=== PATIENT | female | born 1955 | race Caucasian/White ===

== ENCOUNTER → 2019-09-26 | Outpatient (CLI) | payer MEDICARE, OTHER ==
--- NOTE | 2019-09-26 15:28 | Diagnostic Imaging Report ---
INDICATION: Right shoulder pain for three weeks. TIME OF EXAM: 3:05 p.m. FINDINGS: Three views of the right shoulder were obtained. Glenohumeral and acromioclavicular alignment is normal. Acromiohumeral space is normal. No fracture or dislocation is seen. Tiny osseous density adjacent to the inferior aspect of the glenoid is noted, which appears chronic. IMPRESSION: No acute bony abnormality is detected. Dictated by: Dictated on workstation # [id number]
== END ==
LOC: RAD FS 14:59
PROVIDERS: ATTEND Emergency Medicine
DX: M06.811 Other specified rheumatoid arthritis, right shoulder (principal)
CPT/HCPCS: 73030

== ENCOUNTER 2019-11-29 19:46 | Emergency (ER) | payer MEDICARE, OTHER ==
[~2019-11-29] VITALS: Ht 175.3 cm; Wt 59.1 kg
[2019-11-29] MEDS ORDERED: fentaNYL INJECTION 100 MCG/2 ML AMP IVP STA ×2 (20:10→20:43)
[2019-11-29 20:33] LABS: INR 0.9 (0.8-1.4); PROTHROMBIN TIME PATIENT 12.9 SEC (12.2-14.7)
[2019-11-29 20:34] LABS: BILIRUBIN,TOTAL 0.2 MG/DL (0.1-1.0); CALCIUM 8.7 MG/DL (8.5-10.1); CREATININE SERUM 0.98 MG/DL (0.60-1.30); POTASSIUM 4.3 MMOL/L (3.6-5.0)
[2019-11-29 20:35] LABS: ALBUMIN 3.8 GM/DL (3.2-4.5); HEMATOCRIT 35 % (35-52); HEMOGLOBIN 11.4 G/DL (11.5-16.0); MEAN CORPUSCULAR HEMOGLOBIN 32 PG (25-34); MEAN CORPUSCULAR HGB CONC 32 G/DL (32-36); MEAN CORPUSCULAR VOLUME 100 FL (80-99); RED CELL DISTRIBUTION WIDTH 15.3 % (10.0-14.5); TOTAL PROTEIN 6.3 GM/DL (6.4-8.2); WHITE BLOOD COUNT 7.5 10^3/uL (4.3-11.0)
[2019-11-29 20:36] LABS: BASOPHILS # (AUTO) 0.1 10^3/uL (0.0-0.1); BASOPHILS % (AUTO) 1 % (0-10); EOSINOPHILS % (AUTO) 0 % (0-10); LYMPHOCYTES # (AUTO) 1.4 X 10^3 (1.0-4.0); LYMPHOCYTES % (AUTO) 19 % (12-44); MEAN PLATELET VOLUME 8.8 FL (7.4-10.4); MONOCYTES # (AUTO) 0.3 X 10^3 (0.0-1.0); MONOCYTES % (AUTO) 5 % (0-12); NEUTROPHILS # (AUTO) 5.6 X 10^3 (1.8-7.8); NEUTROPHILS % (AUTO) 75 % (42-75); PLATELET COUNT 289 10^3/uL (130-400)
[2019-11-29] MEDS ORDERED: ONDANSETRON 4 MG/2 ML (SDV) Z0FRAN IVP STA (20:43)
[2019-11-29] MEDS ORDERED: NS IV 1000 ML 1,000 ML IV STA (20:43)
--- NOTE | 2019-11-29 20:43 | ED Fall/Injury ---
General Chief Complaint: Hip/Pelvic Problems Stated Complaint: FELL,LEFT HIP PAIN Nursing Triage Note: PT TO ROOM FS05 WITH C/O LEFT HIP PAIN AFTER TRIPPING AND FALLING OVER HER DOG THIS AFTERNOON. Source: patient, EMS History of Present Illness Date Seen by Provider: Nov 29, 2019 Time Seen by Provider: 19:51 Initial Comments 64-year-old female presenting with complaints of left hip pain. She had tripped over her dog and fell on her left hip. She denies hitting her head or losing consciousness. She denies being on any blood thinners. She has a history of rheumatoid arthritis and takes steroids for that. She also takes methotrexate for her rheumatoid arthritis. She is having severe left hip pain and there is so me shortening and rotation of her left leg. She has good sensation and pulses of the left leg. EMS was activated and transported her here to the emergency department for evaluation. He did get 50 g of fentanyl in route which helped improve her pain slightly. Allergies and Home Medications Allergies Coded Allergies: prochlorperazine (Verified Allergy, Unknown, 11/29/19) Patient Home Medication List Home Medication List Reviewed: Yes Review of Systems Review of Systems Constitutional: No chills, No dizziness, No fever Eyes: No Symptoms Reported Ears, Nose, Mouth, Throat: no symptoms reported Respiratory: no symptoms reported Cardiovascular: no symptoms reported Gastrointestinal: no symptoms reported Genitourinary: no symptoms reported Musculoskeletal: see HPI, joint pain (left hip pain) Skin: other (superficial abrasions to arms) Psychiatric/Neurological: Anxiety; Denies Headache, Denies Numbness, Denies Paresthesia Past Fxyplue-Azysji-Kfbelq Hx Past Med/Social Hx: Reviewed Nursing Past Med/Soc Hx Patient Social History Alcohol Use: Regular Use Alcohol Beverage of Choice: Wine Recreational Drug Use: No Smoking Status: Never a Smoker 2nd Hand Smoke Exposure: No Recent Foreign Travel: No Contact w/Someone Who Travel: No Recent Infectious Disease Expo: No Recent Hopitalizations: No Physical Abuse: No Sexual Abuse: No Mistreated: No Fear: No Seasonal Allergies Seasonal Allergies: No Past Medical History Surgeries: Yes Gallbladder, Hysterectomy Respiratory: No Cardiac: No Neurological: No Genitourinary: No Gastrointestinal: Yes Gall Bladder Disease Musculoskeletal: Yes Fractures Endocrine: No HEENT: No Cancer: Yes Cervical Did You Recieve Any Treatments: Yes What Type of Treatment Did You: Surgical Intervention Psychosocial: Yes Anxiety, Depression Integumentary: No Blood Disorders: No Physical Exam Vital Signs Vital Signs - First Documented 11/29/19 19:51 Temp 36.6 Pulse 91 Resp 19 B/P (MAP) 154/74 (100) O2 Delivery Room Air Capillary Refill : Less Than 3 Seconds Height, Weight, BMI Height: '" Weight: lbs. oz. kg; 19.00 BMI Method: General Appearance: moderate distress, thin HEENT: PERRL/EOMI, pharynx normal Neck: non-tender, full range of motion, supple, normal inspection Cardiovascular: normal peripheral pulses, regular rate, rhythm Respiratory: chest non-tender, lungs clear, normal breath sounds, no respiratory distress, no accessory muscle use Gastrointestinal: normal bowel sounds, non tender, soft, no pulsatile mass Extremities: no pedal edema, no calf tenderness, normal capillary refill, pelvis stable, other (left hip pain worse with palpation, shortening and some internal rotation of left leg) 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, no motor/sensory deficits, alert, oriented x 3, other (anxious) Skin: warm/dry, other (superficial abrasions to arms) Rowland Coma Score Best Eye Response: (4) Open Spontaneously Best Verbal Response: (5) Oriented Best Motor Response: (6) Obeys Commands Rowland Total: 15 Progress/Results/Core Measures Results/Orders Lab Results Laboratory Tests Test 11/29/19 20:00 Range/Units White Blood Count 7.5 4.3-11.0 10^3/uL Red Blood Count 3.53 L 4.35-5.85 10^6/uL Hemoglobin 11.4 L 11.5-16.0 G/DL Hematocrit 35 35-52 % Mean Corpuscular Volume 100 H 80-99 FL Mean Corpuscular Hemoglobin 32 25-34 PG Mean Corpuscular Hemoglobin Concent 32 32-36 G/DL Red Cell Distribution Width 15.3 H 10.0-14.5 % Platelet Count 289 130-400 10^3/uL Mean Platelet Volume 8.8 7.4-10.4 FL Neutrophils (%) (Auto) 75 42-75 % Lymphocytes (%) (Auto) 19 12-44 % Monocytes (%) (Auto) 5 0-12 % Eosinophils (%) (Auto) 0 0-10 % Basophils (%) (Auto) 1 0-10 % Neutrophils # (Auto) 5.6 1.8-7.8 X 10^3 Lymphocytes # (Auto) 1.4 1.0-4.0 X 10^3 Monocytes # (Auto) 0.3 0.0-1.0 X 10^3 Eosinophils # (Auto) 0.0 0.0-0.3 10^3/uL Basophils # (Auto) 0.1 0.0-0.1 10^3/uL Prothrombin Time 12.9 12.2-14.7 SEC INR Comment 0.9 0.8-1.4 Activated Partial Thromboplast Time 26 24-35 SEC Sodium Level 140 135-145 MMOL/L Potassium Level 4.3 3.6-5.0 MMOL/L Chloride Level 103 98-107 MMOL/L Carbon Dioxide Level 23 21-32 MMOL/L Anion Gap 14 5-14 MMOL/L Blood Urea Nitrogen 15 7-18 MG/DL Creatinine 0.98 0.60-1.30 MG/DL Estimat Glomerular Filtration Rate 57 BUN/Creatinine Ratio 15 Glucose Level 108 H 70-105 MG/DL Calcium Level 8.7 8.5-10.1 MG/DL Corrected Calcium 8.9 8.5-10.1 MG/DL Total Bilirubin 0.2 0.1-1.0 MG/DL Aspartate Amino Transf (AST/SGOT) 22 5-34 U/L Alanine Aminotransferase (ALT/SGPT) 18 0-55 U/L Alkaline Phosphatase 68 40-136 U/L Total Protein 6.3 L 6.4-8.2 GM/DL Albumin 3.8 3.2-4.5 GM/DL My Orders Orders - KLEVER KEBEDE MD Fentanyl Injection (Sublimaze Injection (11/29/19 20:10) Cbc With Automated Diff (11/29/19 20:10) Comprehensive Metabolic Panel (11/29/19 20:10) Protime With Inr (11/29/19 20:10) Partial Thromboplastin Time (11/29/19 20:10) Pelvis With Left Hip 2-3 View (11/29/19 20:10) Chest 1 View Ap/Pa Only (11/29/19 20:38) Fentanyl Injection (Sublimaze Injection (11/29/19 20:43) Ondansetron Injection (Zofran Injectio (11/29/19 20:43) Freire Cath (11/29/19 20:43) Ua Culture If Indicated (11/29/19 20:43) Ns Iv 1000 Ml (Sodium Chloride 0.9%) (11/29/19 20:43) Ekg Tracing (11/29/19 20:57) Ed Iv/Invasive Line Start (11/29/19 20:58) Vital Signs/I&O 11/29/19 19:51 Temp 36.6 Pulse 91 Resp 19 B/P (MAP) 154/74 (100) O2 Delivery Room Air Blood Pressure Mean: 100 Progress Progress Note #1: Progress Note give another 50 mcg of Fentanyl for pain before obtaining x-rays of the pelvis and left hip. Send basic labs on the patient. Progress Note #2: Time: 20:46 Progress Note Subcapital left hip fracture seen on my review of the pelvis and left hip x- rays. I added on the chest x-ray and ordered more pain medication for the patient. I discussed the case with Dr. Fadi De La O the air defense control officer orthopedic doctor and Dr. Berg for [facility] to admit the patient to [facility] at the wishes of the patient. Progress Note #3: Time: 21:32 Progress Note As EMS arrived to take the patient to [facility] the patient's family and friends advised us that they did not want her to see Dr. De La O. They wanted her to go to [facility] because they knew that she could be managed as a Pent[employer]ism there. That way she wouldn't be given blood products but could be cared for from a advent and medical stand point. Pt is also upset and tearful now and tachycardic compared to earlier. Progress Note #4: Time: 21:47 Progress Note FERCHO Anaya, with [facility] transfer Center was contacted and given information about the patient. She stated that she would contact Dr. Diaz from trauma services since the patient was a standing height fall and would be qualified as trauma. Progress Note #5: Time: 22:16 Progress Note FERCHO Anaya, called back and stated that Dr. Diaz accepted the patient for Trauma but that it might be several hours before she has a room because they are very busy. They will call back as soon as they have the room. Initial ECG Impression Date: Nov 29, 2019 Initial ECG Impression Time: 21:26 Initial ECG Rate: 122 Initial ECG Rhythm: S.Tach Initial ECG Comparisson: No Previous ECG Available Comment Sinus tachycardia with a heart rate of 122 bpm. UT interval 148 ms. QT interval 333 ms and a QTc interval 475 ms. She has no acute ST elevation. There is no prior tracing available for comparison. Diagnostic Imaging Diagonstic Imaging: Xray Plain Films/CT/US/NM/MRI: pelvis, hip Comments [facility], [place] NAME: [facility] REC#: [id number] PT STATUS: ADM IN : 1955 PHYSICIAN: KLEVER KEBEDE MD ADMIT DATE: 11/29/19 Signed Date of Exam:11/29/19 PELVIS WITH LEFT HIP 2-3 VIEW INDICATION: Fall with pelvic pain AP view of the pelvis is obtained with coned AP and frog-leg view of left hip. Numerous surgical clips are seen bilaterally in the pelvis. Hip joints are intact, however, there is mildly displaced subcapital fracture in the left femoral neck. There is no abnormal lytic or sclerotic focus. IMPRESSION: Mildly displaced left subcapital femoral neck fracture without dislocation or other acute pelvic abnormality. Dictated by: Dictated on workstation # [id number] Dict: 11/29/192058 Trans: 11/29/192208 LONNIE [id number] Interpreted by: PEMA ALVAREZ MD Electronically signed by: PEMA ALVAREZ MD 11/29/192208 Diagonstic Imaging: Xray Plain Films/CT/US/NM/MRI: chest Comments [facility] [place] NAME: [facility] REC#: [id number] PT STATUS: ADM IN : 1955 PHYSICIAN: KLEVER KEBEDE MD ADMIT DATE: 11/29/19 Signed Date of Exam:11/29/19 CHEST 1 VIEW AP/PA ONLY INDICATION: Fall. Study is performed as preoperative evaluation AP view of the chest is obtained. COMPARISON: No previous study is available for comparison at this time. FINDINGS: Heart size and pulmonary vasculature are within normal limits, and the lungs are clear, bilaterally. IMPRESSION: Unremarkable chest. Dictated by: Dictated on workstation # [id number] Dict: 11/29/192058 Trans: 11/29/192208 [facility] [id number] Interpreted by: PEMA ALVAREZ MD Electronically signed by: PEMA ALVAREZ MD 11/29/192208 Departure Impression Primary Impression: Closed subcapital fracture of neck of left femur Qualified Codes: S72.012A - Unspecified intracapsular fracture of left femur, initial encounter for closed fracture Additional Impression: Fall at home Qualified Codes: W19.XXXA - Unspecified fall, initial encounter; Y92.009 - Unspecified place in unspecified non-institutional (private) residence as the place of occurrence of the external cause Disposition: XFER SHT-TRM HOSP Condition: Stable Transfer Transfer Reason: Patient preference (Patient requested [facility] because she is a Pentec[employer]alism and knows they can manage her care) Time Spoke to Accepting Phy: 22:16 Transfer Progress Notes d/w Héctor RN, from [facility] and she he spoke with Dr. Diaz for the trauma services. Dr. Diaz accepted patient for transfer and notified of acceptance at 2216. Advised that they were very full and it may take a while for a room to be available. Transfer Facility: [facility] Method of Transfer: EMS Departure-Patient Inst. Referrals: ALLIE VOGT MD, MARC E MD Nov 29, 2019 20:43
--- NOTE | 2019-11-29 21:01 | Diagnostic Imaging Report ---
INDICATION: Fall. Study is performed as preoperative evaluation AP view of the chest is obtained. COMPARISON: No previous study is available for comparison at this time. FINDINGS: Heart size and pulmonary vasculature are within normal limits, and the lungs are clear, bilaterally. IMPRESSION: Unremarkable chest. Dictated by: Dictated on workstation # [id number]
--- NOTE | 2019-11-29 21:02 | Diagnostic Imaging Report ---
INDICATION: Fall with pelvic pain AP view of the pelvis is obtained with coned AP and frog-leg view of left hip. Numerous surgical clips are seen bilaterally in the pelvis. Hip joints are intact, however, there is mildly displaced subcapital fracture in the left femoral neck. There is no abnormal lytic or sclerotic focus. IMPRESSION: Mildly displaced left subcapital femoral neck fracture without dislocation or other acute pelvic abnormality. Dictated by: Dictated on workstation # [id number]
--- NOTE | 2019-11-29 21:14 | NUR ---
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
[2019-11-29 21:29] LABS: BACTERIA,URINE NEGATIVE /HPF; BILIRUBIN,URINE NEGATIVE (NEGATIVE); CLARITY,URINE CLEAR; COLOR,URINE YELLOW; GLUCOSE, URINE (UA) NEGATIVE (NEGATIVE); KETONES,URINE NEGATIVE (NEGATIVE); LEUKOCYTE ESTERASE ,URINE NEGATIVE (NEGATIVE); NITRITE,URINE NEGATIVE (NEGATIVE); PH,URINE 7.5 (5-9); PROTEIN,URINE NEGATIVE (NEGATIVE); RBC,URINE 0-2 /HPF
[2019-11-29 21:30] LABS: SQUAMOUS EPITHELIAL CELL,UR 0-2 /HPF
--- NOTE | 2019-11-29 21:35 | NUR ---
[facility] [place] [facility] PT DECIDED THAT SHE WANTED TO BE TRANSFERED TO . PT HAD ORIGINALLY REQUESTED TO BE TRANSFERED [place] [facility]
[2019-11-29] MEDS ORDERED: morphine INJ 10 MG/ML 1ML (SYR OR VIAL) IVP STA ×2 (21:48→22:46)
[2019-11-29] MEDS ORDERED: LORazepam INJ 2 MG/ML (ATIVAN) VIAL IVP STA (22:46)
[2019-11-29] MEDS ORDERED: NS IV 1000 ML 1,000 ML IV SCH (23:00)
[2019-11-29 23:37] VITALS: BP 136/61
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
--- OUTSIDE RECORDS SUMMARY | 2019-12-04 11:50 | XMS REPORT ---
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 Name Role Phone Migration, Doctor Unavailable Unavailable PROBLEMS Type Condition ICD9-CM Code [id number] Code Onset Dates Condition S tatus SNOMED Code Problem Bipolar disorder, current episode depressed, moderate F31.32 Active 397169726 Problem Anorexia nervosa F50.00 Active 568 68544 Problem Personality disorder, unspecified F60.9 Active 25566233 Problem Post-traumatic stress disorder, chronic F43.12 Active [id number] ALLERGIES No Information ENCOUNTERS Encounter Location Date Diagnosis [place] [address] [address] Sep, [place] [address] [address] Sep, Bipolar disorder, current episode depres sed, moderate F31.32 ; Post- traumatic stress disorder, chronic F43.12 and Anorexia nervosa F50.00 [place] [address] [address] Sep, [place] [address] [address] Aug, [place] [address] [address] Aug, [place] [address] [address] Aug, [place] [address] [address] Aug, Bipolar disorder, current episode depres sed, moderate F31.32 ; Post- traumatic stress disorder, chronic F43.12 ; Anorexia nervosa F50.00 and Personality disorder, unspecified F60.9 [place] [address] [address] Jul, Bipolar disorder, current episode depres sed, moderate F31.32 and Anorexia nervosa F50.00 [place] [address] [address] Jul, [facility] [address] [address] Jul, [facility] [address] [address] Jul, [place] [address] [address] Jun, Bipolar disorder, current episode depres sed, moderate F31.32 ; Post- traumatic stress disorder, chronic F43.12 and Eating disorder, unspecified F50.9 [place] [address] [address] May, [place] [address] [address] Apr, Bipolar disorder, current episode depres sed, moderate F31.32 ; Post- traumatic stress disorder, chronic F43.12 and Eating disorder, unspecified F50.9 [place] [address] [address] Feb, Bipolar disorder, current episode depres sed, moderate F31.32 ; Post- traumatic stress disorder, chronic F43.12 and Personality disorder, unspecified F60.9 [place] [address] [address] 14 Feb, 2016 Bipolar II disorder F31.81 [place] [address] [address] Dec, Bipolar disorder, current episode depres sed, moderate F31.32 ; Post- traumatic stress disorder, chronic F43.12 and Personality disorder, unspecified F60.9 [place] [address] [address] 14 Dec, 2015 Bipolar disorder, current episode depres sed, moderate F31.32 ; Post- traumatic stress disorder, chronic F43.12 and Personality disorder, unspecified F60.9 [facility] [address] [address] Dec, [facility] [address] [place] [address] Dec, [facility] [address] [address] Dec, Bipolar disorder, current episode depres sed, moderate F31.32 ; Post- traumatic stress disorder, chronic F43.12 and Personality disorder, unspecified F60.9 [facility] [address] [address] Nov, [facility] [address] [place] [address] Nov, Bipolar disorder, current episode depres sed, moderate F31.32 ; Post- traumatic stress disorder, chronic F43.12 and Personality disorder, unspecified F60.9 [place] [address] [address] Nov, Bipolar disorder, current episode depres sed, moderate F31.32 ; Post- traumatic stress disorder, chronic F43.12 and Personality disorder, unspecified F60.9 [place] [address] [address] Oct, [facility] [address] [address] Oct, Bipolar disorder, current episode depres sed, moderate F31.32 ; Post- traumatic stress disorder, chronic F43.12 and Personality disorder, unspecified F60.9 [facility] [address] [address] Oct, Bipolar disorder, current episode depres sed, moderate F31.32 ; Post- traumatic stress disorder, chronic F43.12 and Personality disorder, unspecified F60.9 [facility] [address] [address] Aug, Bipolar II disorder F31.81 and Post-trau matic stress disorder, unspecified F43.10 [facility] [address] [address] Aug, Bipolar disorder, current episode depres sed, moderate F31.32 ; Post- traumatic stress disorder, chronic F43.12 and Personality disorder, unspecified F60.9 [facility] [address] [address] Jul, Bipolar disorder, unspecified 296.80 and Posttraumatic stress disorder 309.81 [place] [address] [address] Jul, Post-traumatic stress disorder, chronic F43.12 ; Personality disorder, unspecified F60.9 and Bipolar disorder, current episode depressed, moderate F31.32 [place] [address] [address] Jun, Bipolar disorder, unspecified 296.80 and Posttraumatic stress disorder 309.81 [facility] [address] [address] Jun, Bipolar disorder, unspecified 296.80 and Posttraumatic stress disorder 309.81 [facility] [address] [address] Jun, Posttraumatic stress disorder 309.81 and Bipolar disorder, unspecified 296.80 [place] [address] [address] May, Bipolar II disorder 296.89 and Post trau matic stress disorder 309.81 [facility] [address] [address] 18 May, 2015 Bipolar II disorder 296.89 and Post trau matic stress disorder 309.81 [place] [address] [address] 17 May, 2015 [facility] [address] [address] 09 May, 2015 [facility] [address] [address] May, [facility] [address] [place] [id number] [place] [address] May, [facility] [address] [address] May, Bipolar II disorder 296.89 and Post trau matic stress disorder 309.81 [facility] [address] [place] [id number] [place] [address] May, Bipolar I disorder, most recent episode (or current) depressed, moderate 296.52 ; Posttraumatic stress disorder 309.81 and Anxiety state, unspecified 300.00 [facility] [address] [address] Apr, Bipolar II disorder 296.89 and Post trau matic stress disorder 309.81 [facility] [address] [address] Apr, [facility] [address] [address] Apr, Bipolar II disorder 296.89 and Post trau matic stress disorder 309.81 [facility] [address] [address] Apr, Bipolar II disorder 296.89 and Post trau matic stress disorder 309.81 [facility] [address] [address] Mar, Bipolar II disorder 296.89 and Post trau matic stress disorder 309.81 [facility] [address] [place] [id number] [place] [address] Mar, [facility] [address] [address] Mar, Bipolar II disorder 296.89 and Post trau matic stress disorder 309.81 [facility] [address] [place] [id number] [place] [address] Mar, Bipolar II disorder 296.89 and Post trau matic stress disorder 309.81 [facility] [address] [place] [id number] [place] [address] Mar, Bipolar II disorder 296.89 and Post trau matic stress disorder 309.81 [facility] [address] [place] [id number] [place] [address] Mar, [facility] [address] [place] [id number] [place] [address] Mar, Bipolar II disorder 296.89 and Post trau matic stress disorder 309.81 [facility] [address] [place] [id number] [place] [address] Feb, Bipolar II disorder 296.89 and Post trau matic stress disorder 309.81 [facility] [address] [place] [id number] [place] [address] Feb, [facility] [address] [place] [id number] [place] [address] Feb, Bipolar disorder, unspecified 296.80 and Anxiety state, unspecified 300.00 [facility] [address] [place] [id number] [place] [address] Feb, [facility] [address] [address] Feb, [facility] [address] [place] [id number] [place] [address] January, [facility] [address] [place] [id number] [place] [address] Dec, [facility] [address] [place] [id number] [place] [address] Dec, [facility] [address] [place] [id number] [place] [address] Nov, [facility] [address] [place] [id number] [place] [address] Nov, [facility] [address] [place] [id number] [place] [address] Nov, [facility] [address] [place] [id number] [place] [address] Nov, [facility] [address] [facility] [id number] [place] [address] Nov, [facility] [address] [id number] [place] [address] Nov, [facility] [address] [id number] [place] [address] Nov, [facility] [address] [id number] [place] [address] Nov, [facility] [address] [id number] [place] [address] Nov, [facility] [address] [id number] [place] [address] Oct, [facility] [address] [id number] [place] [address] Oct, [facility] [address] [id number] [place] [address] Oct, [facility] [address] [id number] [place] [address] Oct, [facility] [address] [id number] [place] [address] Oct, [facility] [address] [id number] [place] [address] Oct, [facility] [address] [id number] [place] [address] Oct, [facility] [address] [id number] [place] [address] Oct, [facility] [address] [id number] [place] [address] Sep, [facility] [address] [id number] [place] [address] Sep, [facility] [address] [id number] [place] [address] Sep, [facility] [address] [id number] [place] [address] Sep, [facility] [address] [id number] [place] [address] Sep, [facility] [address] [id number] [place] [address] Sep, [facility] [address] [id number] [place] [address] Sep, [facility] [address] [id number] [place] [address] Sep, [facility] [address] [id number] [place] [address] Sep, [facility] [address] [id number] [place] [address] Sep, [facility] [address] [id number] [place] [address] Aug, [facility] [address] [id number] [place] [address] Aug, [facility] [address] [id number] [place] [address] Aug, [facility] [address] [id number] [place] [address] Aug, [facility] [address] [id number] [place] [address] Aug, [facility] [address] [id number] [place] [address] Aug, [facility] [address] [id number] [place] [address] Aug, [facility] [address] [id number] [place] [address] Aug, [facility] [address] [id number] [place] [address] Jul, [facility] [address] [id number] [place] [address] Jul, [facility] [address] [id number] [place] [address] Jul, [facility] [address] [id number] [place] [address] Jul, [facility] [address] [id number] [place] [address] Jul, [facility] [address] [id number] [place] [address] Jul, [facility] [address] [facility] [id number] [place] [address] Jul, [facility] [address] [id number] [place] [address] Jul, [facility] [address] [id number] [place] [address] Jul, [facility] [address] [id number] [place] [address] Jun, [facility] [address] [id number] [place] [address] Jun, [facility] [address] [id number] [place] [address] Jun, [facility] [address] [id number] [place] [address] Jun, [facility] [address] [id number] [place] [address] Jun, [facility] [address] [id number] [place] [address] Jun, [facility] [address] [id number] [place] [address] May, [facility] [address] [id number] [place] [address] May, [facility] [address] [id number] [place] [address] May, [facility] [address] [id number] [place] [address] May, [facility] [address] [id number] [place] [address] May, [facility] [address] [facility] [id number] [place] [address] May, [facility] [address] [id number] [place] [address] Apr, [facility] [address] [facility] [id number] [place] [address] Apr, [facility] [address] [id number] [place] [address] Apr, [facility] [address] [id number] [place] [address] Apr, [facility] [address] [id number] [place] [address] Apr, [facility] [address] [id number] [place] [address] Apr, [facility] [address] [id number] [place] [address] Mar, [facility] [address] [id number] [place] [address] Mar, [facility] [address] [id number] [place] [address] Mar, [facility] [address] [id number] [place] [address] Mar, [facility] [address] [facility] [id number] [place] [address] Mar, [facility] [address] [id number] [place] [address] Mar, [facility] [address] [id number] [place] [address] Mar, [facility] [address] [id number] [place] [address] Mar, [facility] [address] [id number] [place] [address] Mar, 2013 [facility] [address] [facility] [id number] [place] [address] Mar, 2013 [facility] [address] [facility] [id number] [place] [address] Mar, 2013 [facility] [address] [id number] [place] [address] Mar, 2013 [facility] [address] [facility] [id number] [place] [address] Mar, 2013 [facility] [address] [id number] [place] [address] Mar, 2013 [facility] [address] [id number] [place] [address] Mar, 2013 [facility] [address] [id number] [place] [address] Mar, 2013 [facility] [address] [id number] [place] [address] Feb, [facility] [address] [id number] [place] [address] Feb, [facility] [address] [id number] [place] [address] Feb, [facility] [address] [id number] [place] [address] Feb, [facility] [address] [id number] [place] [address] 24 Feb, 2014 [facility] [address] [facility] [id number] [place] [address] Feb, [facility] [address] [id number] [place] [address] 20 Feb, 2014 [facility] [address] [id number] [place] [address] 16 Feb, 2014 [facility] [address] [id number] [place] [address] Feb, [facility] [address] [id number] [place] [address] Feb, [facility] [address] [facility] [id number] [place] [address] Feb, [facility] [address] [facility] [id number] [place] [address] Feb, [facility] [address] [id number] [place] [address] Feb, [facility] [address] [id number] [place] [address] January, [facility] [address] [id number] [place] [address] January, [facility] [address] [id number] [place] [address] January, [facility] [address] [id number] [place] [address] January, [facility] [address] [facility] [id number] [place] [address] January, [facility] [address] [id number] [place] [address] January, [facility] [address] [id number] [place] [address] January, [facility] [address] [id number] [place] [address] January, [facility] [address] [facility] [id number] [place] [address] January, [facility] [address] [id number] [place] [address] January, [facility] [address] [id number] [place] [address] January, [facility] [address] [id number] [place] [address] January, [facility] [address] [id number] [place] [address] January, [facility] [address] [facility] [id number] [place] [address] January, [facility] [address] [id number] [place] [address] Dec, [facility] [address] [id number] [place] [address] Dec, [facility] [address] [id number] [place] [address] Dec, [facility] [address] [id number] [place] [address] Dec, [facility] [address] [id number] [place] [address] Dec, [facility] [address] [id number] [place] [address] Dec, [facility] [address] [id number] [place] [address] Dec, [facility] [address] [id number] [place] [address] Dec, [facility] [address] [id number] [place] [address] Nov, [facility] [address] [id number] [place] [address] Nov, [facility] [address] [id number] [place] [address] Nov, [facility] [address] [id number] [place] [address] Nov, [facility] [address] [id number] [place] [address] Oct, [facility] [address] [id number] [place] [address] Oct, [facility] [address] [id number] [place] [address] Oct, [facility] [address] [id number] [place] [address] Oct, [facility] [address] [id number] [place] [address] Oct, [facility] [address] [id number] [place] [address] Oct, [facility] [address] [id number] [place] [address] Sep, [facility] [address] [id number] [place] [address] Sep, [facility] [address] [id number] [place] [address] Sep, [facility] [address] [id number] [place] [address] Sep, [facility] [address] [id number] [place] [address] Sep, [facility] [address] [id number] [place] [address] Sep, [facility] [address] [id number] [place] [address] Sep, [facility] [address] [id number] [place] [address] Sep, [facility] [address] [id number] [place] [address] Sep, [facility] [address] [id number] [place] [address] Sep, [facility] [address] [id number] [place] [address] Aug, [facility] [address] [id number] [place] [address] Aug, [facility] [address] [id number] [place] [address] Aug, [facility] [address] [id number] [place] [address] Aug, [facility] [address] [id number] [place] [address] Aug, [facility] [address] [id number] [place] [address] Aug, [facility] [address] [id number] [place] [address] Aug, [facility] [address] [id number] [place] [address] Aug, [facility] [address] [id number] [place] [address] Jul, [facility] [address] [id number] [place] [address] Jul, [facility] [address] [id number] [place] [address] Jul, [facility] [address] [id number] [place] [address] Jul, [facility] [address] [id number] [place] [address] Jul, [facility] [address] [id number] [place] [address] Jul, [facility] [address] [id number] [place] [address] Jul, [facility] [address] [id number] [place] [address] Jul, [facility] [address] [id number] [place] [address] Jul, [facility] [address] [id number] [place] [address] Jul, [facility] [address] [id number] [place] [address] Jul, [facility] [address] [id number] [place] [address] Jul, [facility] [address] [facility] [id number] [place] [address] 30 Jun, 2012 [facility] [address] [id number] [place] [address] 30 Jun, 2012 [facility] [address] [id number] [place] [address] Jun, [facility] [address] [id number] [place] [address] Jun, [facility] [address] [id number] [place] [address] Jun, [facility] [address] [id number] [place] [address] Jun, [facility] [address] [id number] [place] [address] 16 Jun, 2013 [facility] [address] [id number] [place] [address] Jun, [facility] [address] [id number] [place] [address] 25 May, 2012 [facility] [address] [id number] [place] [address] 18 May, 2012 [facility] [address] [id number] [place] [address] 11 May, 2012 [facility] [address] [id number] [place] [address] 10 May, 2012 [facility] [address] [id number] [place] [address] 09 May, 2012 [facility] [address] [id number] [place] [address] 04 May, 2012 [facility] [address] [id number] [place] [address] 30 Apr, 2013 [facility] [address] [id number] [place] [address] Apr[facility] [address] [id number] [place] [address] Apr, [facility] [address] [id number] [place] [address] Apr, [facility] [address] [id number] [place] [address] Apr, [facility] [address] [id number] [place] [address] Mar, [facility] [id number] [place] [address] Mar, [facility] [address] [id number] [place] [address] Mar, [facility] [id number] [place] [address] Feb, [facility] [address] [id number] [place] [address] Feb, [facility] [id number] [place] [address] Feb, [facility] [address] [id number] [place] [address] January, [facility] [id number] [place] [address] January, [facility] [address] [id number] [place] [address] Dec, [facility] [address] [id number] [place] [address] Nov, [facility] [address] [id number] [place] [address] Nov, IMMUNIZATIONS No Known Immunizations SOCIAL HISTORY [...]
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
--- OUTSIDE RECORDS SUMMARY | 2019-12-04 11:51 | XMS REPORT ---
Author Author Shireen Moyer Doctor Organization [facility] Address Unknown Phone Unavailable Care Team Providers Care Drier Tender Naphthalene Name Role Phone Migration, Doctor Unavailable Unavailable PROBLEMS Type Condition ICD9-CM Code [id number] Code Onset Dates Condition S tatus SNOMED Code Problem Bipolar disorder, current episode depressed, moderate F31.32 Active 769342117 Problem Anorexia nervosa F50.00 Active 568 86123 Problem Personality disorder, unspecified F60.9 Active [id number] Problem Post-traumatic stress disorder, chronic F43.12 Active [id number] ALLERGIES No Information ENCOUNTERS Encounter Location Date Diagnosis [place] [address] [address] Sep, [facility] [address] [address] Sep, [facility] [address] [address] Sep, [facility] [address] [address] Sep, [facility] [address] [address] Sep, [facility] [address] [address] Aug, [facility] [address] [address] Aug, [facility] [address] [address] Aug, [facility] [address] [address] Aug, Bipolar disorder, current episode depres sed, moderate F31.32 ; Post- traumatic stress disorder, chronic F43.12 ; Anorexia nervosa F50.00 and Personality disorder, unspecified F60.9 [place] [address] [address] 08 Jul, 2017 Bipolar disorder, current episode depres sed, moderate F31.32 and Anorexia nervosa F50.00 [place] [address] [address] Jul, [place] [address] [address] Jul, [place] [address] [place] [address] Jul, [place] [address] [address] Jun, Bipolar disorder, current episode depres sed, moderate F31.32 ; Post- traumatic stress disorder, chronic F43.12 and Eating disorder, unspecified F50.9 [place] [address] [address] May, [place] [address] [address] Apr, Bipolar disorder, current episode depres sed, moderate F31.32 ; Post- traumatic stress disorder, chronic F43.12 and Eating disorder, unspecified F50.9 [place] [address] [address] 14 Feb, 2016 Bipolar disorder, current episode depres sed, moderate F31.32 ; Post- traumatic stress disorder, chronic F43.12 and Personality disorder, unspecified F60.9 [place] [address] [address] 14 Feb, 2016 Bipolar II disorder F31.81 [place] [address] [address] 27 Dec, 2015 Bipolar disorder, current episode depres sed, moderate F31.32 ; Post- traumatic stress disorder, chronic F43.12 and Personality disorder, unspecified F60.9 [place] [address] [address] Dec, Bipolar disorder, current episode depres sed, moderate F31.32 ; Post- traumatic stress disorder, chronic F43.12 and Personality disorder, unspecified F60.9 [place] [address] [address] Dec, [facility] [address] [address] Dec, [facility] [address] [address] Dec, Bipolar disorder, current episode depres sed, moderate F31.32 ; Post- traumatic stress disorder, chronic F43.12 and Personality disorder, unspecified F60.9 [place] [address] [address] Nov, [place] [address] [address] Nov, Bipolar disorder, current episode depres sed, moderate F31.32 ; Post- traumatic stress disorder, chronic F43.12 and Personality disorder, unspecified F60.9 [place] [address] [address] Nov, Bipolar disorder, current episode depres sed, moderate F31.32 ; Post- traumatic stress disorder, chronic F43.12 and Personality disorder, unspecified F60.9 [place] [address] [address] Oct, [facility] [address] [place] [address] Oct, Bipolar disorder, current episode depres sed, moderate F31.32 ; Post- traumatic stress disorder, chronic F43.12 and Personality disorder, unspecified F60.9 [place] [address] [place] [id number] 05 Oct, 2015 Bipolar disorder, current episode depres sed, moderate F31.32 ; Post- traumatic stress disorder, chronic F43.12 and Personality disorder, unspecified F60.9 [place] [address] [address] Aug, Bipolar II disorder F31.81 and Post-trau matic stress disorder, unspecified F43.10 [place] [address] [place] [address] Aug, Bipolar disorder, current episode depres sed, moderate F31.32 ; Post- traumatic stress disorder, chronic F43.12 and Personality disorder, unspecified F60.9 [place] [address] [address] Jul, Bipolar disorder, unspecified 296.80 and Posttraumatic stress disorder 309.81 [place] [address] [place] [address] Jul, Post-traumatic stress disorder, chronic F43.12 ; Personality disorder, unspecified F60.9 and Bipolar disorder, current episode depressed, moderate F31.32 [place] [address] [address] Jun, Bipolar disorder, unspecified 296.80 and Posttraumatic stress disorder 309.81 [place] [address] [address] Jun, Bipolar disorder, unspecified 296.80 and Posttraumatic stress disorder 309.81 [place] [address] [address] Jun, Posttraumatic stress disorder 309.81 and Bipolar disorder, unspecified 296.80 [place] [address] [address] May, Bipolar II disorder 296.89 and Post trau matic stress disorder 309.81 [place] [address] [address] 18 May, 2015 Bipolar II disorder 296.89 and Post trau matic stress disorder 309.81 [place] [address] [address] 17 May, 2015 [place] [address] [place] [id number] May, [facility] [address] [place] [id number] [place] [address] May, [facility] [address] [place] [id number] [place] [address] May, [facility] [address] [place] [id number] [place] [address] May, Bipolar II disorder 296.89 and Post trau matic stress disorder 309.81 [facility] [address] [place] [id number] [place] [address] May, Bipolar I disorder, most recent episode (or current) depressed, moderate 296.52 ; Posttraumatic stress disorder 309.81 and Anxiety state, unspecified 300.00 [facility] [address] [place] [id number] [place] [address] Apr, Bipolar II disorder 296.89 and Post trau matic stress disorder 309.81 [facility] [address] [place] [id number] [place] [address] Apr, [facility] [address] [address] Apr, Bipolar II disorder 296.89 and Post trau matic stress disorder 309.81 [facility] [address] [place] [id number] [place] [address] Apr, Bipolar II disorder 296.89 and Post trau matic stress disorder 309.81 [facility] [address] [place] [id number] [place] [address] Mar, Bipolar II disorder 296.89 and Post trau matic stress disorder 309.81 [facility] [address] [place] [id number] [place] [address] Mar, [facility] [address] [address] Mar, Bipolar II disorder 296.89 and Post trau matic stress disorder 309.81 [facility] [address] [address] Mar, Bipolar II disorder 296.89 and Post trau matic stress disorder 309.81 [facility] [address] [place] [id number] [place] [address] Mar, Bipolar II disorder 296.89 and Post trau matic stress disorder 309.81 [facility] [address] [place] [id number] [place] [address] Mar, [facility] [address] [address] Mar, Bipolar II disorder 296.89 and Post trau matic stress disorder 309.81 [facility] [address] [address] Feb, Bipolar II disorder 296.89 and Post trau matic stress disorder 309.81 [facility] [address] [place] [id number] [place] [address] Feb, [facility] [address] [address] Feb, Bipolar disorder, unspecified 296.80 and Anxiety state, unspecified 300.00 [facility] [address] [place] [id number] [place] [address] Feb, [facility] [address] [address] Feb, [facility] [address] [place] [id number] [place] [address] January, [facility] [address] [place] [id number] [place] [address] Dec, [facility] [address] [place] [id number] [place] [address] Dec, [facility] [address] [place] [id number] [place] [address] Nov, [facility] [address] [place] [id number] [place] [address] Nov, [facility] [address] [place] [id number] [place] [address] Nov, [facility] [place] [facility] [address] [id number] [place] [address] Nov, [facility] [place] [facility] [address] [facility] [id number] [facility] [place] [address] Nov, [facility] [place] [facility] [address] [id number] [place] [address] Nov, [facility] [place] [facility] [address] [id number] [place] [address] Nov, [facility] [place] [facility] [address] [facility] [id number] [facility] [place] [address] Nov, [facility] [place] [facility] [address] [id number] [place] [address] Nov, [facility] [place] [facility] [address] [id number] [place] [address] Oct, [facility] [place] [facility] [address] [id number] [place] [address] Oct, [facility] [place] [facility] [address] [id number] [place] [address] Oct, [facility] [place] [facility] [address] [id number] [place] [address] Oct, [facility] [place] [facility] [address] [id number] [place] [address] Oct, [facility] [place] [facility] [address] [id number] [place] [address] Oct, [facility] [place] [facility] [address] [id number] [place] [address] Oct, [facility] [place] [facility] [address] [id number] [place] [address] Oct, [facility] [place] [facility] [address] [id number] [place] [address] Sep, [facility] [place] [facility] [address] [id number] [place] [address] Sep, [facility] [place] [facility] [address] [id number] [place] [address] Sep, [facility] [place] [facility] [address] [id number] [place] [address] Sep, [facility] [place] [facility] [address] [id number] [place] [address] Sep, [facility] [place] [facility] [address] [id number] [place] [address] Sep, [facility] [place] [facility] [address] [id number] [place] [address] Sep, [facility] [place] [facility] [address] [id number] [place] [address] Sep, [facility] [place] [facility] [address] [id number] [place] [address] Sep, [facility] [place] [facility] [address] [id number] [place] [address] Sep, [facility] [place] [facility] [address] [id number] [place] [address] Aug, [facility] [place] [facility] [address] [id number] [place] [address] Aug, [facility] [place] [facility] [address] [id number] [place] [address] Aug, [facility] [place] [facility] [address] [id number] [place] [address] Aug, [facility] [place] [facility] [address] [id number] [place] [address] Aug, [facility] [place] [facility] [address] [id number] [place] [address] Aug, [facility] [place] [facility] [address] [id number] [place] [address] Aug, [facility] [place] [facility] [address] [id number] [place] [address] Aug, [facility] [place] [facility] [address] [id number] [place] [address] Jul, [facility] [place] [facility] [address] [id number] [place] [address] Jul, [facility] [place] [facility] [address] [id number] [place] [address] Jul, [facility] [place] [facility] [address] [id number] [place] [address] Jul, [facility] [place] [facility] [address] [id number] [place] [address] Jul, [facility] [place] [facility] [address] [id number] [place] [address] Jul, [facility] [place] [facility] [address] [id number] [place] [address] Jul, [facility] [place] [facility] [address] [id number] [place] [address] Jul, [facility] [place] [facility] [address] [id number] [place] [address] Jul, [facility] [place] [facility] [address] [id number] [place] [address] Jun, [facility] [place] [facility] [address] [id number] [place] [address] Jun, [facility] [place] [facility] [address] [id number] [place] [address] Jun, [facility] [place] [facility] [address] [id number] [place] [address] Jun, [facility] [place] [facility] [address] [id number] [place] [address] Jun, [facility] [place] [facility] [address] [id number] [place] [address] Jun, [facility] [place] [facility] [address] [id number] [place] [address] May, [facility] [place] [facility] [address] [id number] [place] [address] May, [facility] [place] [facility] [address] [id number] [facility] [place] [address] 16 May, 2013 [facility] [place] [facility] [address] [id number] [place] [address] May, [facility] [place] [facility] [address] [facility] [id number] [facility] [place] [address] May, [facility] [place] [facility] [address] [id number] [place] [address] May, [facility] [place] [facility] [address] [facility] [id number] [facility] [place] [address] Apr, [facility] [place] [facility] [address] [id number] [facility] [place] [address] Apr, [facility] [place] [facility] [address] [id number] [place] [address] Apr, [facility] [place] [facility] [address] [id number] [place] [address] Apr, [facility] [place] [facility] [address] [id number] [place] [address] Apr, [facility] [place] [facility] [address] [facility] [id number] [place] [address] Apr, [facility] [place] [facility] [address] [id number] [place] [address] Mar, [facility] [place] [facility] [address] [id number] [place] [address] Mar, [facility] [place] [facility] [address] [id number] [facility] [place] [address] Mar, [facility] [place] [facility] [address] [id number] [place] [address] Mar, [facility] [place] [facility] [address] [id number] [place] [address] Mar, [facility] [place] [facility] [address] [facility] [id number] [place] [address] Mar, [facility] [place] [facility] [address] [id number] [place] [address] Mar, [facility] [place] [facility] [address] [id number] [place] [address] Mar, 2013 [facility] [place] [facility] [address] [facility] [id number] [place] [address] Mar, 2013 [facility] [place] [facility] [address] [id number] [place] [address] Mar, 2013 [facility] [place] [facility] [address] [id number] [place] [address] Mar, 2013 [facility] [place] [facility] [address] [facility] [id number] [place] [address] Mar, 2013 [facility] [place] [facility] [address] [id number] [place] [address] Mar, 2013 [facility] [place] [facility] [address] [id number] [place] [address] Mar, 2013 [facility] [place] [facility] [address] [id number] [place] [address] Mar, 2013 [facility] [place] [facility] [address] [id number] [place] [address] Mar, 2013 [facility] [place] [facility] [address] [id number] [place] [address] Feb, [facility] [place] [facility] [address] [id number] [place] [address] Feb, [facility] [place] [facility] [address] [id number] [place] [address] Feb, [facility] [place] [facility] [address] [id number] [place] [address] Feb, [facility] [place] [facility] [address] [facility] [id number] [place] [address] Feb, [facility] [place] [facility] [address] [id number] [place] [address] Feb, [facility] [place] [facility] [address] [id number] [place] [address] Feb, [facility] [place] [facility] [address] [id number] [place] [address] Feb, [facility] [place] [facility] [address] [id number] [facility] [place] [address] Feb, [facility] [place] [facility] [address] [facility] [id number] [facility] [place] [address] Feb, [facility] [place] [facility] [address] [facility] [id number] [place] [address] Feb, [facility] [place] [facility] [address] [id number] [facility] [place] [address] Feb, [facility] [place] [facility] [address] [facility] [id number] [facility] [place] [address] Feb, [facility] [place] [facility] [address] [id number] [place] [address] January, [facility] [place] [facility] [address] [id number] [place] [address] January, [facility] [place] [facility] [address] [id number] [place] [address] January, [facility] [place] [facility] [address] [id number] [place] [address] January, [facility] [place] [facility] [address] [id number] [place] [address] January, [facility] [place] [facility] [address] [id number] [place] [address] January, [facility] [place] [facility] [address] [id number] [place] [address] January, [facility] [place] [facility] [address] [id number] [place] [address] January, [facility] [place] [facility] [address] [id number] [place] [address] January, [facility] [place] [facility] [address] [id number] [place] [address] January, [facility] [place] [facility] [address] [id number] [place] [address] January, [facility] [place] [facility] [address] [id number] [place] [address] January, [facility] [place] [facility] [address] [facility] [id number] [facility] [place] [address] January, [facility] [place] [facility] [address] [facility] [id number] [place] [address] January, [facility] [place] [facility] [address] [id number] [facility] [place] [address] Dec, [facility] [address] [id number] [facility] [place] [address] Dec, [facility] [address] [facility] [id number] [facility] [place] [address] Dec, [facility] [address] [id number] [place] [address] Dec, [facility] [address] [id number] [place] [address] Dec, [facility] [address] [id number] [place] [address] Dec, [facility] [address] [id number] [place] [address] Dec, [facility] [address] [id number] [place] [address] Dec, [facility] [address] [id number] [place] [address] Nov, [facility] [address] [id number] [place] [address] Nov, [facility] [address] [id number] [place] [address] Nov, [facility] [address] [id number] [place] [address] Nov, [facility] [address] [id number] [place] [address] Oct, [facility] [address] [id number] [place] [address] Oct, [facility] [address] [id number] [place] [address] Oct, [facility] [address] [id number] [place] [address] Oct, [facility] [address] [id number] [place] [address] Oct, [facility] [address] [id number] [place] [address] Oct, [facility] [address] [id number] [place] [address] Sep, [facility] [address] [id number] [place] [address] Sep, [facility] [address] [id number] [place] [address] Sep, [facility] [address] [id number] [place] [address] Sep, [facility] [address] [id number] [place] [address] Sep, [facility] [address] [id number] [place] [address] Sep, [facility] [address] [id number] [place] [address] Sep, [facility] [address] [id number] [place] [address] Sep, [facility] [address] [id number] [place] [address] Sep, [facility] [address] [id number] [place] [address] Sep, [facility] [address] [id number] [place] [address] Aug, [facility] [address] [id number] [place] [address] Aug, [facility] [address] [id number] [place] [address] Aug, [facility] [address] [id number] [place] [id number] Aug, [facility] [address] [id number] [place] [address] Aug, [facility] [address] [id number] [place] [address] Aug, [facility] [address] [id number] [place] [address] Aug, [facility] [address] [id number] [place] [address] Aug, [facility] [address] [id number] [place] [address] Jul, [facility] [address] [id number] [place] [address] Jul, [facility] [address] [id number] [place] [address] Jul, [facility] [address] [id number] [place] [address] Jul, [facility] [address] [id number] [place] [address] Jul, [facility] [address] [id number] [place] [address] Jul, [facility] [address] [id number] [place] [address] Jul, [facility] [address] [id number] [place] [address] Jul, [facility] [address] [id number] [place] [address] Jul, [facility] [address] [id number] [place] [address] Jul, [facility] [address] [id number] [place] [address] Jul, [facility] [address] [id number] [place] [address] 06 Jul, 2012 [facility] [address] [facility] [id number] [place] [address] 30 Jun, 2012 [facility] [address] [id number] [place] [address] Jun, [facility] [address] [id number] [place] [address] Jun, [facility] [address] [id number] [place] [address] Jun, [facility] [address] [id number] [place] [address] Jun, [facility] [address] [id number] [place] [address] Jun, [facility] [address] [id number] [place] [address] 16 Jun, 2013 [facility] [address] [id number] [place] [address] Jun, [facility] [address] [id number] [place] [address] 25 May, 2013 [facility] [address] [id number] [place] [address] 18 May, 2013 [facility] [address] [id number] [place] [address] 11 May, 2013 [facility] [address] [id number] [place] [address] 10 May, 2012 [facility] [address] [facility] [id number] [place] [address] 09 May, 2012 [facility] [address] [id number] [place] [address] 04 May, 2012 [facility] [address] [id number] [place] [address] 30 Apr, 2013 [facility] [address] [id number] [place] [address] Apr, [facility] [id number] [place] [address] Apr, [facility] [id number] [place] [address] Apr, [facility] [address] [id number] [place] [address] Apr, [facility] [id number] [place] [address] Mar, [facility] [id number] [place] [address] Mar, [facility] [id number] [place] [address] Mar, [facility] [id number] [place] [address] Feb, [facility] [id number] [place] [address] Feb, [facility] [id number] [place] [address] Feb, [facility] [id number] [place] [address] January, [facility] [id number] [place] [address] January, [facility] [id number] [place] [address] Dec, [facility] [id number] [place] [address] Nov, [facility] [id number] [place] [address] Nov, IMMUNIZATIONS No Known Immunizations SOCIAL HISTORY Never Assessed REASON FOR VISIT PLAN OF CARE VITAL SIGNS Height 69 in 2014-03-26 Weight 130.8 lbs 2014-03-26 Heart Rate 88 bpm 2014-03-26 Blood pressure systolic 128 mmHg 2014-03-26 Blood pressure diastolic 72 mmHg 2014-03-26 MEDICATIONS Unknown Medications RESULTS No Results PROCEDURES [...]
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
--- OUTSIDE RECORDS SUMMARY | 2019-12-04 11:51 | XMS REPORT ---
Author Author Shireen Moyer Doctor Organization [facility] Address Unknown Phone Unavailable Care Team Providers Care Non Morse Intercept Technician Name Role Phone Migration, Doctor Unavailable Unavailable PROBLEMS Type Condition ICD9-CM Code [id number] Code Onset Dates Condition S tatus SNOMED Code Problem Bipolar disorder, current episode depressed, moderate F31.32 Active 908399158 Problem Anorexia nervosa F50.00 Active 568 26767 Problem Personality disorder, unspecified F60.9 Active 41710252 Problem Post-traumatic stress disorder, chronic F43.12 Active [id number] ALLERGIES No Information ENCOUNTERS Encounter Location Date Diagnosis [place] [address] [address] Sep, [facility] [address] [address] Sep, [facility] [address] [address] Sep, [facility] [address] [address] Sep, [facility] [address] [address] Sep, [facility] [address] [address] Aug, [facility] [address] [address] Aug, [facility] [address] [address] Aug, [facility] [address] [address] Aug, Bipolar disorder, current episode depres sed, moderate F31.32 ; Post- traumatic stress disorder, chronic F43.12 ; Anorexia nervosa F50.00 and Personality disorder, unspecified F60.9 [place] [address] [address] 08 Jul, 2017 Bipolar disorder, current episode depres sed, moderate F31.32 and Anorexia nervosa F50.00 [place] [address] [address] Jul, [place] [address] [address] Jul, [place] [address] [place] [address] Jul, [place] [address] [address] Jun, Bipolar disorder, current episode depres sed, moderate F31.32 ; Post- traumatic stress disorder, chronic F43.12 and Eating disorder, unspecified F50.9 [place] [address] [address] May, [place] [address] [address] Apr, Bipolar disorder, current episode depres sed, moderate F31.32 ; Post- traumatic stress disorder, chronic F43.12 and Eating disorder, unspecified F50.9 [place] [address] [address] 14 Feb, 2016 Bipolar disorder, current episode depres sed, moderate F31.32 ; Post- traumatic stress disorder, chronic F43.12 and Personality disorder, unspecified F60.9 [place] [address] [address] 14 Feb, 2016 Bipolar II disorder F31.81 [place] [address] [address] 27 Dec, 2015 Bipolar disorder, current episode depres sed, moderate F31.32 ; Post- traumatic stress disorder, chronic F43.12 and Personality disorder, unspecified F60.9 [place] [address] [address] Dec, Bipolar disorder, current episode depres sed, moderate F31.32 ; Post- traumatic stress disorder, chronic F43.12 and Personality disorder, unspecified F60.9 [place] [address] [address] Dec, [facility] [address] [address] Dec, [facility] [address] [address] Dec, Bipolar disorder, current episode depres sed, moderate F31.32 ; Post- traumatic stress disorder, chronic F43.12 and Personality disorder, unspecified F60.9 [place] [address] [address] Nov, [place] [address] [address] Nov, Bipolar disorder, current episode depres sed, moderate F31.32 ; Post- traumatic stress disorder, chronic F43.12 and Personality disorder, unspecified F60.9 [place] [address] [address] Nov, Bipolar disorder, current episode depres sed, moderate F31.32 ; Post- traumatic stress disorder, chronic F43.12 and Personality disorder, unspecified F60.9 [place] [address] [address] Oct, [facility] [address] [place] [address] Oct, Bipolar disorder, current episode depres sed, moderate F31.32 ; Post- traumatic stress disorder, chronic F43.12 and Personality disorder, unspecified F60.9 [place] [address] [place] [id number] 05 Oct, 2015 Bipolar disorder, current episode depres sed, moderate F31.32 ; Post- traumatic stress disorder, chronic F43.12 and Personality disorder, unspecified F60.9 [place] [address] [address] Aug, Bipolar II disorder F31.81 and Post-trau matic stress disorder, unspecified F43.10 [place] [address] [place] [address] Aug, Bipolar disorder, current episode depres sed, moderate F31.32 ; Post- traumatic stress disorder, chronic F43.12 and Personality disorder, unspecified F60.9 [place] [address] [address] Jul, Bipolar disorder, unspecified 296.80 and Posttraumatic stress disorder 309.81 [place] [address] [place] [address] Jul, Post-traumatic stress disorder, chronic F43.12 ; Personality disorder, unspecified F60.9 and Bipolar disorder, current episode depressed, moderate F31.32 [place] [address] [address] Jun, Bipolar disorder, unspecified 296.80 and Posttraumatic stress disorder 309.81 [place] [address] [address] Jun, Bipolar disorder, unspecified 296.80 and Posttraumatic stress disorder 309.81 [place] [address] [address] Jun, Posttraumatic stress disorder 309.81 and Bipolar disorder, unspecified 296.80 [place] [address] [address] May, Bipolar II disorder 296.89 and Post trau matic stress disorder 309.81 [place] [address] [address] 18 May, 2015 Bipolar II disorder 296.89 and Post trau matic stress disorder 309.81 [place] [address] [address] 17 May, 2015 [place] [address] [place] [id number] May, [facility] [address] [place] [address] [id number] [place] [address] May, [facility] [address] [place] [id number] [place] [address] May, [facility] [address] [place] [id number] [place] [address] May, Bipolar II disorder 296.89 and Post trau matic stress disorder 309.81 [facility] [address] [place] [id number] [place] [address] May, Bipolar I disorder, most recent episode (or current) depressed, moderate 296.52 ; Posttraumatic stress disorder 309.81 and Anxiety state, unspecified 300.00 [facility] [address] [place] [id number] [place] [address] Apr, Bipolar II disorder 296.89 and Post trau matic stress disorder 309.81 [facility] [address] [place] [id number] [place] [address] Apr, [facility] [address] [address] Apr, Bipolar II disorder 296.89 and Post trau matic stress disorder 309.81 [facility] [address] [place] [id number] [place] [address] Apr, Bipolar II disorder 296.89 and Post trau matic stress disorder 309.81 [facility] [address] [place] [id number] [place] [address] Mar, Bipolar II disorder 296.89 and Post trau matic stress disorder 309.81 [facility] [address] [place] [id number] [place] [address] Mar, [facility] [address] [address] Mar, Bipolar II disorder 296.89 and Post trau matic stress disorder 309.81 [facility] [address] [address] Mar, Bipolar II disorder 296.89 and Post trau matic stress disorder 309.81 [facility] [address] [place] [id number] [place] [address] Mar, Bipolar II disorder 296.89 and Post trau matic stress disorder 309.81 [facility] [address] [place] [id number] [place] [address] Mar, [facility] [address] [address] Mar, Bipolar II disorder 296.89 and Post trau matic stress disorder 309.81 [facility] [address] [address] Feb, Bipolar II disorder 296.89 and Post trau matic stress disorder 309.81 [facility] [address] [place] [id number] [place] [address] Feb, [facility] [address] [address] Feb, Bipolar disorder, unspecified 296.80 and Anxiety state, unspecified 300.00 [facility] [address] [place] [id number] [place] [address] Feb, [facility] [address] [address] Feb, [facility] [address] [place] [id number] [place] [address] January, [facility] [address] [place] [id number] [place] [address] Dec, [facility] [address] [place] [id number] [place] [address] Dec, [facility] [address] [place] [id number] [place] [address] Nov, [facility] [address] [place] [id number] [place] [address] Nov, [facility] [address] [place] [id number] [place] [address] Nov, [facility] [place] [facility] [address] [id number] [place] [address] Nov, [facility] [place] [facility] [address] [facility] [id number] [facility] [place] [address] Nov, [facility] [place] [facility] [address] [facility] [id number] [place] [address] Nov, [facility] [place] [facility] [address] [id number] [place] [address] Nov, [facility] [place] [facility] [address] [facility] [id number] [facility] [place] [address] Nov, [facility] [place] [facility] [address] [id number] [place] [address] Nov, [facility] [place] [facility] [address] [id number] [place] [address] Oct, [facility] [place] [facility] [address] [facility] [id number] [place] [address] Oct, [facility] [place] [facility] [address] [id number] [place] [address] Oct, [facility] [place] [facility] [address] [id number] [place] [address] Oct, [facility] [place] [facility] [address] [id number] [place] [address] Oct, [facility] [place] [facility] [address] [id number] [place] [address] Oct, [facility] [place] [facility] [address] [id number] [place] [address] Oct, [facility] [place] [facility] [address] [id number] [place] [address] Oct, [facility] [place] [facility] [address] [id number] [place] [address] Sep, [facility] [place] [facility] [address] [id number] [place] [address] Sep, [facility] [place] [facility] [address] [id number] [place] [address] Sep, [facility] [place] [facility] [address] [id number] [place] [address] Sep, [facility] [place] [facility] [address] [id number] [place] [address] Sep, [facility] [place] [facility] [address] [id number] [place] [address] Sep, [facility] [place] [facility] [address] [id number] [place] [address] Sep, [facility] [place] [facility] [address] [id number] [place] [address] Sep, [facility] [place] [facility] [address] [id number] [place] [address] Sep, [facility] [place] [facility] [address] [id number] [place] [address] Sep, [facility] [place] [facility] [address] [id number] [place] [address] Aug, [facility] [place] [facility] [address] [id number] [place] [address] Aug, [facility] [place] [facility] [address] [id number] [place] [address] Aug, [facility] [place] [facility] [address] [id number] [place] [address] Aug, [facility] [place] [facility] [address] [id number] [place] [address] Aug, [facility] [place] [facility] [address] [id number] [place] [address] Aug, [facility] [place] [facility] [address] [id number] [place] [address] Aug, [facility] [place] [facility] [address] [id number] [place] [address] Aug, [facility] [place] [facility] [address] [id number] [place] [address] Jul, [facility] [place] [facility] [address] [id number] [place] [address] Jul, [facility] [place] [facility] [address] [id number] [place] [address] Jul, [facility] [place] [facility] [address] [id number] [place] [address] Jul, [facility] [place] [facility] [address] [id number] [place] [address] Jul, [facility] [place] [facility] [address] [id number] [place] [address] Jul, [facility] [place] [facility] [address] [id number] [place] [address] Jul, [facility] [place] [facility] [address] [id number] [place] [address] Jul, [facility] [place] [facility] [address] [id number] [place] [address] Jul, [facility] [place] [facility] [address] [id number] [place] [address] Jun, [facility] [place] [facility] [address] [id number] [place] [address] Jun, [facility] [place] [facility] [address] [id number] [place] [address] Jun, [facility] [place] [facility] [address] [id number] [place] [address] Jun, [facility] [place] [facility] [address] [id number] [place] [address] Jun, [facility] [place] [facility] [address] [id number] [place] [address] Jun, [facility] [place] [facility] [address] [id number] [place] [address] May, [facility] [place] [facility] [address] [id number] [place] [address] May, [facility] [place] [facility] [address] [id number] [facility] [place] [address] 16 May, 2013 [facility] [place] [facility] [address] [id number] [place] [address] May, [facility] [place] [facility] [address] [facility] [id number] [facility] [place] [address] May, [facility] [place] [facility] [address] [id number] [place] [address] May, [facility] [place] [facility] [address] [facility] [id number] [facility] [place] [address] Apr, [facility] [place] [facility] [address] [id number] [facility] [place] [address] Apr, [facility] [place] [facility] [address] [id number] [place] [address] Apr, [facility] [place] [facility] [address] [id number] [place] [address] Apr, [facility] [place] [facility] [address] [id number] [place] [address] Apr, [facility] [place] [facility] [address] [facility] [id number] [place] [address] Apr, [facility] [place] [facility] [address] [id number] [place] [address] Mar, [facility] [place] [facility] [address] [id number] [place] [address] Mar, [facility] [place] [facility] [address] [id number] [facility] [place] [address] Mar, [facility] [place] [facility] [address] [id number] [place] [address] Mar, [facility] [place] [facility] [address] [id number] [place] [address] Mar, [facility] [place] [facility] [address] [facility] [id number] [place] [address] Mar, [facility] [place] [facility] [address] [id number] [place] [address] Mar, [facility] [place] [facility] [address] [id number] [place] [address] Mar, 2013 [facility] [place] [facility] [address] [facility] [id number] [place] [address] Mar, 2013 [facility] [place] [facility] [address] [id number] [place] [address] Mar, 2013 [facility] [place] [facility] [address] [id number] [place] [address] Mar, 2013 [facility] [place] [facility] [address] [facility] [id number] [place] [address] Mar, 2013 [facility] [place] [facility] [address] [id number] [place] [address] Mar, 2013 [facility] [place] [facility] [address] [id number] [place] [address] Mar, 2013 [facility] [place] [facility] [address] [id number] [place] [address] Mar, 2013 [facility] [place] [facility] [address] [id number] [place] [address] Mar, 2013 [facility] [place] [facility] [address] [id number] [place] [address] Feb, [facility] [place] [facility] [address] [id number] [place] [address] Feb, [facility] [place] [facility] [address] [id number] [place] [address] Feb, [facility] [place] [facility] [address] [id number] [place] [address] Feb, [facility] [place] [facility] [address] [facility] [id number] [place] [address] Feb, [facility] [place] [facility] [address] [id number] [place] [address] Feb, [facility] [place] [facility] [address] [id number] [place] [address] Feb, [facility] [place] [facility] [address] [id number] [place] [address] Feb, [facility] [place] [facility] [address] [id number] [facility] [place] [address] Feb, [facility] [place] [facility] [address] [facility] [id number] [facility] [place] [address] Feb, [facility] [place] [facility] [address] [facility] [id number] [place] [address] Feb, [facility] [place] [facility] [address] [id number] [facility] [place] [address] Feb, [facility] [place] [facility] [address] [facility] [id number] [facility] [place] [address] Feb, [facility] [place] [facility] [address] [id number] [place] [address] January, [facility] [place] [facility] [address] [id number] [place] [address] January, [facility] [place] [facility] [address] [id number] [place] [address] January, [facility] [place] [facility] [address] [id number] [place] [address] January, [facility] [place] [facility] [address] [id number] [place] [address] January, [facility] [place] [facility] [address] [id number] [place] [address] January, [facility] [place] [facility] [address] [id number] [place] [address] January, [facility] [place] [facility] [address] [id number] [place] [address] January, [facility] [place] [facility] [address] [id number] [place] [address] January, [facility] [place] [facility] [address] [id number] [place] [address] January, [facility] [place] [facility] [address] [id number] [place] [address] January, [facility] [place] [facility] [address] [id number] [place] [address] January, [facility] [place] [facility] [address] [facility] [id number] [facility] [place] [address] January, [facility] [place] [facility] [address] [facility] [id number] [place] [address] January, [facility] [place] [facility] [address] [id number] [facility] [place] [address] Dec, [facility] [place] [facility] [address] [id number] [facility] [place] [address] Dec, [facility] [place] [facility] [address] [facility] [id number] [facility] [place] [address] Dec, [facility] [place] [facility] [address] [id number] [place] [address] Dec, [facility] [place] [facility] [address] [id number] [place] [address] Dec, [facility] [place] [facility] [address] [id number] [place] [address] Dec, [facility] [place] [facility] [address] [id number] [place] [address] Dec, [facility] [place] [facility] [address] [id number] [place] [address] Dec, [facility] [place] [facility] [address] [id number] [place] [address] Nov, [facility] [place] [facility] [address] [id number] [place] [address] Nov, [facility] [place] [facility] [address] [id number] [place] [address] Nov, [facility] [place] [facility] [address] [id number] [place] [address] Nov, [facility] [place] [facility] [address] [id number] [place] [address] Oct, [facility] [id number] [place] [address] Oct, [facility] [id number] [place] [address] Oct, [facility] [id number] [place] [address] Oct, [facility] [id number] [place] [address] Oct, [facility] [id number] [place] [address] Oct, [facility] [id number] [place] [address] Sep, [facility] [id number] [place] [address] Sep, [facility] [id number] [place] [address] Sep, [facility] [id number] [place] [address] Sep, [facility] [id number] [place] [address] Sep, [facility] [id number] [place] [address] Sep, [facility] [id number] [place] [address] Sep, [facility] [id number] [place] [address] Sep, [facility] [id number] [place] [address] Sep, [facility] [id number] [place] [address] Sep, [facility] [id number] [place] [address] Aug, [facility] [id number] [place] [address] Aug, [facility] [id number] [place] [address] Aug, [facility] [id number] [place] [address] Aug, [facility] [id number] [place] [address] Aug, [facility] [id number] [place] [address] Aug, [facility] [id number] [place] [address] Aug, [facility] [id number] [place] [address] Aug, [facility] [id number] [place] [address] Jul, [facility] [id number] [place] [address] Jul, [facility] [id number] [place] [address] Jul, [facility] [id number] [place] [address] Jul, [facility] [id number] [place] [address] Jul, [facility] [id number] [place] [address] Jul, [facility] [id number] [place] [address] Jul, [facility] [id number] [place] [address] Jul, [facility] [id number] [place] [address] Jul, [facility] [id number] [place] [address] Jul, [facility] [id number] [place] [address] Jul, [facility] [id number] [place] [address] 06 Jul, 2012 [facility] [address] [facility] [id number] [place] [address] 30 Jun, 2012 [facility] [id number] [place] [address] Jun, [facility] [id number] [place] [address] Jun, [facility] [id number] [place] [address] Jun, [facility] [address] [id number] [place] [address] Jun, [facility] [address] [id number] [place] [address] Jun, [facility] [address] [id number] [place] [address] 16 Jun, 2013 [facility] [address] [id number] [place] [address] Jun, [facility] [address] [id number] [place] [address] 25 May, 2013 [facility] [address] [id number] [place] [address] 18 May, 2013 [facility] [address] [id number] [place] [address] 11 May, 2013 [facility] [address] [id number] [place] [address] 10 May, 2012 [facility] [address] [facility] [id number] [place] [address] 09 May, 2012 [facility] [address] [id number] [place] [address] 04 May, 2012 [facility] [address] [id number] [place] [address] 30 Apr, 2013 [facility] [address] [id number] [place] [address] Apr, [facility] [id number] [place] [address] Apr, [facility] [id number] [place] [address] Apr, [facility] [address] [id number] [place] [address] Apr, [facility] [id number] [place] [address] Mar, [facility] [id number] [place] [address] Mar, [facility] [id number] [place] [address] Mar, [facility] [id number] [place] [address] Feb, [facility] [id number] [place] [address] Feb, [facility] [id number] [place] [address] Feb, [facility] [id number] [place] [address] January, [facility] [id number] [place] [address] January, [facility] [id number] [place] [address] Dec, [facility] [id number] [place] [address] Nov, [facility] [id number] [place] [address] Nov, IMMUNIZATIONS No Known Immunizations SOCIAL HISTORY [...]
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
--- OUTSIDE RECORDS SUMMARY | 2019-12-04 11:52 | XMS REPORT ---
Author Author Shireen Moyer Doctor Organization [facility] Address Unknown Phone Unavailable Care Team Providers Care Barrel Finisher Name Role Phone Migration, Doctor Unavailable Unavailable PROBLEMS Type Condition ICD9-CM Code [id number] Code Onset Dates Condition S tatus SNOMED Code Problem Bipolar disorder, current episode depressed, moderate F31.32 Active 527956113 Problem Anorexia nervosa F50.00 Active 568 22898 Problem Personality disorder, unspecified F60.9 Active 66894183 Problem Post-traumatic stress disorder, chronic F43.12 Active [id number] ALLERGIES No Information ENCOUNTERS Encounter Location Date Diagnosis [place] [address] [address] Sep, [place] [address] [address] Sep, [facility] [address] [address] Sep, [place] [address] [address] Sep, [facility] [address] [address] Aug, [place] [address] [address] Aug, [facility] [address] [address] Aug, [facility] [address] [address] Aug, Bipolar disorder, current episode depres sed, moderate F31.32 ; Post- traumatic stress disorder, chronic F43.12 ; Anorexia nervosa F50.00 and Personality disorder, unspecified F60.9 [facility] [address] [address] Jul, Bipolar disorder, current episode depres sed, moderate F31.32 and Anorexia nervosa F50.00 [place] [address] [address] Jul, [facility] [address] [address] Jul, [facility] [address] [address] Jul, [facility] [address] [address] Jun, Bipolar disorder, current episode depres sed, moderate F31.32 ; Post- traumatic stress disorder, chronic F43.12 and Eating disorder, unspecified F50.9 [place] [address] [address] May, [place] [address] [address] Apr, Bipolar disorder, current episode depres sed, moderate F31.32 ; Post- traumatic stress disorder, chronic F43.12 and Eating disorder, unspecified F50.9 [place] [address] [address] Feb, Bipolar disorder, current episode depres sed, moderate F31.32 ; Post- traumatic stress disorder, chronic F43.12 and Personality disorder, unspecified F60.9 [place] [address] [address] 14 Feb, 2016 Bipolar II disorder F31.81 [place] [address] [address] Dec, Bipolar disorder, current episode depres sed, moderate F31.32 ; Post- traumatic stress disorder, chronic F43.12 and Personality disorder, unspecified F60.9 [place] [address] [address] Dec, Bipolar disorder, current episode depres sed, moderate F31.32 ; Post- traumatic stress disorder, chronic F43.12 and Personality disorder, unspecified F60.9 [place] [address] [address] Dec, [facility] [address] [place] [address] Dec, [facility] [address] [address] Dec, Bipolar disorder, current episode depres sed, moderate F31.32 ; Post- traumatic stress disorder, chronic F43.12 and Personality disorder, unspecified F60.9 [place] [address] [address] Nov, [place] [address] [address] Nov, Bipolar disorder, current episode depres sed, moderate F31.32 ; Post- traumatic stress disorder, chronic F43.12 and Personality disorder, unspecified F60.9 [place] [address] [address] Nov, Bipolar disorder, current episode depres sed, moderate F31.32 ; Post- traumatic stress disorder, chronic F43.12 and Personality disorder, unspecified F60.9 [place] [address] [address] Oct, [place] [address] [address] Oct, Bipolar disorder, current episode depres sed, moderate F31.32 ; Post- traumatic stress disorder, chronic F43.12 and Personality disorder, unspecified F60.9 [place] [address] [address] Oct, Bipolar disorder, current episode depres sed, moderate F31.32 ; Post- traumatic stress disorder, chronic F43.12 and Personality disorder, unspecified F60.9 [place] [address] [address] Aug, Bipolar II disorder F31.81 and Post-trau matic stress disorder, unspecified F43.10 [facility] [address] [address] Aug, Bipolar disorder, current episode depres sed, moderate F31.32 ; Post- traumatic stress disorder, chronic F43.12 and Personality disorder, unspecified F60.9 [place] [address] [address] Jul, Bipolar disorder, unspecified 296.80 and Posttraumatic stress disorder 309.81 [place] [address] [address] Jul, Post-traumatic stress disorder, chronic F43.12 ; Personality disorder, unspecified F60.9 and Bipolar disorder, current episode depressed, moderate F31.32 [place] [address] [address] Jun, Bipolar disorder, unspecified 296.80 and Posttraumatic stress disorder 309.81 [place] [address] [address] Jun, Bipolar disorder, unspecified 296.80 and Posttraumatic stress disorder 309.81 [place] [address] [address] Jun, Posttraumatic stress disorder 309.81 and Bipolar disorder, unspecified 296.80 [place] [address] [address] May, Bipolar II disorder 296.89 and Post trau matic stress disorder 309.81 [facility] [address] [address] 18 May, 2015 Bipolar II disorder 296.89 and Post trau matic stress disorder 309.81 [place] [address] [address] 17 May, 2015 [place] [address] [address] 09 May, 2015 [place] [address] [address] May, [facility] [address] [place] [id number] [place] [address] May, [facility] [address] [place] [id number] [place] [address] May, Bipolar II disorder 296.89 and Post trau matic stress disorder 309.81 [facility] [address] [place] [id number] [place] [address] May, Bipolar I disorder, most recent episode (or current) depressed, moderate 296.52 ; Posttraumatic stress disorder 309.81 and Anxiety state, unspecified 300.00 [facility] [address] [place] [id number] [place] [address] Apr, Bipolar II disorder 296.89 and Post trau matic stress disorder 309.81 [facility] [address] [place] [id number] [place] [address] Apr, [facility] [address] [place] [id number] [place] [address] Apr, Bipolar II disorder 296.89 and Post trau matic stress disorder 309.81 [facility] [address] [place] [id number] [place] [address] Apr, Bipolar II disorder 296.89 and Post trau matic stress disorder 309.81 [facility] [address] [place] [id number] [place] [address] Mar, Bipolar II disorder 296.89 and Post trau matic stress disorder 309.81 [facility] [address] [place] [id number] [place] [address] Mar, [facility] [address] [place] [id number] [place] [address] Mar, Bipolar II disorder 296.89 and Post trau matic stress disorder 309.81 [facility] [address] [id number] [place] [address] Mar, Bipolar II disorder 296.89 and Post trau matic stress disorder 309.81 [facility] [address] [place] [id number] [place] [address] Mar, Bipolar II disorder 296.89 and Post trau matic stress disorder 309.81 [facility] [address] [place] [id number] [place] [address] Mar, [facility] [address] [place] [id number] [place] [address] Mar, Bipolar II disorder 296.89 and Post trau matic stress disorder 309.81 [facility] [address] [place] [id number] [place] [address] Feb, Bipolar II disorder 296.89 and Post trau matic stress disorder 309.81 [facility] [address] [place] [id number] [place] [address] Feb, [facility] [address] [place] [id number] [place] [address] Feb, Bipolar disorder, unspecified 296.80 and Anxiety state, unspecified 300.00 [facility] [address] [place] [id number] [place] [address] Feb, [facility] [address] [address] Feb, [facility] [address] [place] [id number] [place] [address] January, [facility] [address] [address] 14 Dec, 2014 [facility] [address] [place] [id number] [place] [address] Dec, [facility] [address] [place] [id number] [place] [address] Nov, [facility] [address] [place] [id number] [place] [address] Nov, [facility] [address] [place] [id number] [place] [address] Nov, [facility] [address] [place] [id number] [place] [address] Nov, [facility] [place] [facility] [address] [id number] [place] [address] Nov, [facility] [place] [facility] [address] [id number] [place] [address] Nov, [facility] [place] [facility] [address] [id number] [place] [address] Nov, [facility] [place] [facility] [address] [id number] [place] [address] Nov, [facility] [place] [facility] [address] [facility] [id number] [place] [address] Nov, [facility] [place] [facility] [address] [id number] [place] [address] Oct, [facility] [place] [facility] [address] [id number] [place] [address] Oct, [facility] [place] [facility] [address] [id number] [place] [address] Oct, [facility] [place] [facility] [address] [id number] [place] [address] Oct, [facility] [place] [facility] [address] [id number] [place] [address] Oct, [facility] [place] [facility] [address] [id number] [place] [address] Oct, [facility] [place] [facility] [address] [id number] [place] [address] Oct, [facility] [place] [facility] [address] [id number] [place] [address] Oct, [facility] [place] [facility] [address] [id number] [place] [address] Sep, [facility] [place] [facility] [address] [id number] [place] [address] Sep, [facility] [place] [facility] [address] [id number] [place] [address] Sep, [facility] [place] [facility] [address] [id number] [place] [address] Sep, [facility] [place] [facility] [address] [id number] [place] [address] Sep, [facility] [place] [facility] [address] [id number] [place] [address] Sep, [facility] [place] [facility] [address] [id number] [place] [address] Sep, [facility] [place] [facility] [address] [id number] [place] [address] Sep, [facility] [place] [facility] [address] [id number] [place] [address] Sep, [facility] [place] [facility] [address] [id number] [place] [address] Sep, [facility] [place] [facility] [address] [id number] [place] [address] Aug, [facility] [place] [facility] [address] [id number] [place] [address] Aug, [facility] [place] [facility] [address] [id number] [place] [address] Aug, [facility] [place] [facility] [address] [id number] [place] [address] Aug, [facility] [place] [facility] [address] [id number] [place] [address] Aug, [facility] [place] [facility] [address] [id number] [place] [address] Aug, [facility] [place] [facility] [address] [id number] [place] [address] Aug, [facility] [place] [facility] [address] [id number] [place] [address] Aug, [facility] [place] [facility] [address] [id number] [place] [address] Jul, [facility] [place] [facility] [address] [id number] [place] [address] Jul, [facility] [place] [facility] [address] [id number] [place] [address] Jul, [facility] [place] [facility] [address] [id number] [place] [address] Jul, [facility] [place] [facility] [address] [id number] [place] [address] Jul, [facility] [place] [facility] [address] [id number] [place] [address] Jul, [facility] [place] [facility] [address] [id number] [place] [address] Jul, [facility] [place] [facility] [address] [id number] [place] [address] Jul, [facility] [place] [facility] [address] [id number] [place] [address] Jul, [facility] [place] [facility] [address] [id number] [place] [address] Jun, [facility] [place] [facility] [address] [id number] [place] [address] Jun, [facility] [place] [facility] [address] [id number] [place] [address] Jun, [facility] [place] [facility] [address] [id number] [place] [address] Jun, [facility] [place] [facility] [address] [id number] [place] [address] Jun, [facility] [place] [facility] [address] [id number] [place] [address] Jun, [facility] [place] [facility] [address] [id number] [place] [address] May, [facility] [place] [facility] [address] [id number] [place] [address] May, [facility] [place] [facility] [address] [id number] [place] [address] 16 May, 2013 [facility] [place] [facility] [address] [id number] [place] [address] 16 May, 2014 [facility] [place] [facility] [address] [id number] [place] [address] May, [facility] [place] [facility] [address] [facility] [id number] [place] [address] May, [facility] [place] [facility] [address] [id number] [place] [address] Apr, [facility] [place] [facility] [address] [facility] [id number] [place] [address] Apr, [facility] [place] [facility] [address] [facility] [id number] [place] [address] Apr, [facility] [place] [facility] [address] [facility] [id number] [place] [address] Apr, [facility] [place] [facility] [address] [id number] [place] [address] Apr, [facility] [place] [facility] [address] [id number] [place] [address] Apr, [facility] [place] [facility] [address] [facility] [id number] [place] [address] Mar, [facility] [place] [facility] [address] [id number] [place] [address] Mar, [facility] [place] [facility] [address] [id number] [place] [address] Mar, [facility] [place] [facility] [address] [id number] [place] [address] Mar, [facility] [place] [facility] [address] [id number] [place] [address] Mar, [facility] [place] [facility] [address] [id number] [place] [address] Mar, [facility] [place] [facility] [address] [facility] [id number] [place] [address] Mar, [facility] [place] [facility] [address] [id number] [place] [address] Mar, [facility] [place] [facility] [address] [id number] [place] [address] Mar, 2013 [facility] [place] [facility] [address] [facility] [id number] [place] [address] Mar, 2013 [facility] [place] [facility] [address] [id number] [place] [address] Mar, 2013 [facility] [place] [facility] [address] [id number] [place] [address] Mar, 2013 [facility] [place] [facility] [address] [facility] [id number] [place] [address] Mar, 2013 [facility] [place] [facility] [address] [facility] [id number] [place] [address] Mar, 2013 [facility] [place] [facility] [address] [id number] [place] [address] Mar, 2013 [facility] [place] [facility] [address] [id number] [place] [address] Mar, 2013 [facility] [place] [facility] [address] [id number] [place] [address] Feb, [facility] [place] [facility] [address] [id number] [place] [address] Feb, [facility] [place] [facility] [address] [id number] [place] [address] Feb, [facility] [place] [facility] [address] [id number] [place] [address] Feb, [facility] [place] [facility] [address] [id number] [place] [address] 24 Feb, 2014 [facility] [place] [facility] [address] [facility] [id number] [place] [address] Feb, [facility] [place] [facility] [address] [id number] [place] [address] Feb, [facility] [place] [facility] [address] [id number] [place] [address] Feb, [facility] [place] [facility] [address] [id number] [place] [address] Feb, [facility] [place] [facility] [address] [id number] [place] [address] Feb, [facility] [place] [facility] [address] [facility] [id number] [place] [address] Feb, [facility] [place] [facility] [address] [facility] [id number] [place] [address] Feb, [facility] [place] [facility] [address] [id number] [place] [address] Feb, [facility] [place] [facility] [address] [facility] [id number] [place] [address] January, [facility] [place] [facility] [address] [id number] [place] [address] January, [facility] [place] [facility] [address] [id number] [place] [address] January, [facility] [place] [facility] [address] [id number] [place] [address] January, [facility] [place] [facility] [address] [id number] [place] [address] January, [facility] [place] [facility] [address] [id number] [place] [address] January, [facility] [place] [facility] [address] [id number] [place] [address] January, [facility] [place] [facility] [address] [id number] [place] [address] January, [facility] [place] [facility] [address] [id number] [place] [address] January, [facility] [place] [facility] [address] [id number] [place] [address] January, [facility] [place] [facility] [address] [id number] [place] [address] January, [facility] [place] [facility] [address] [id number] [place] [address] January, [facility] [place] [facility] [address] [id number] [place] [address] January, [facility] [place] [facility] [address] [facility] [id number] [place] [address] January, [facility] [place] [facility] [address] [facility] [id number] [place] [address] Dec, [facility] [place] [facility] [address] [id number] [place] [address] Dec, [facility] [place] [facility] [address] [id number] [place] [address] Dec, [facility] [place] [facility] [address] [facility] [id number] [place] [address] Dec, [facility] [place] [facility] [address] [id number] [place] [address] Dec, [facility] [place] [facility] [address] [id number] [place] [address] Dec, [facility] [place] [facility] [address] [id number] [place] [address] Dec, [facility] [place] [facility] [address] [id number] [place] [address] Dec, [facility] [place] [facility] [address] [id number] [place] [address] Nov, [facility] [place] [facility] [address] [id number] [place] [address] Nov, [facility] [place] [facility] [address] [id number] [place] [address] Nov, [facility] [place] [facility] [address] [facility] [id number] [place] [address] Nov, [facility] [place] [facility] [address] [id number] [place] [address] Oct, [facility] [place] [facility] [address] [id number] [place] [address] Oct, [facility] [place] [facility] [address] [id number] [place] [address] Oct, [facility] [place] [facility] [address] [facility] [id number] [place] [address] Oct, [facility] [place] [facility] [address] [id number] [place] [address] Oct, [facility] [place] [facility] [address] [id number] [place] [address] Oct, [facility] [place] [facility] [address] [id number] [place] [address] Sep, [facility] [place] [facility] [address] [id number] [place] [address] Sep, [facility] [place] [facility] [address] [id number] [place] [address] Sep, [facility] [place] [facility] [address] [id number] [place] [address] Sep, [facility] [place] [facility] [address] [id number] [place] [address] Sep, [facility] [place] [facility] [address] [id number] [place] [address] Sep, [facility] [place] [facility] [address] [id number] [place] [address] Sep, [facility] [place] [facility] [address] [id number] [place] [address] Sep, [facility] [place] [facility] [address] [id number] [place] [address] Sep, [facility] [place] [facility] [address] [id number] [place] [address] Sep, [facility] [place] [facility] [address] [id number] [place] [address] Aug, [facility] [place] [facility] [address] [id number] [place] [address] Aug, [facility] [place] [facility] [address] [id number] [place] [address] Aug, [facility] [place] [facility] [address] [id number] [place] [address] Aug, [facility] [place] [facility] [address] [id number] [place] [address] Aug, [facility] [place] [facility] [address] [id number] [place] [address] Aug, [facility] [place] [facility] [address] [id number] [place] [address] Aug, [facility] [place] [facility] [address] [id number] [place] [address] Aug, [facility] [address] [id number] [place] [address] Jul, [facility] [address] [id number] [place] [address] Jul, [facility] [address] [id number] [place] [address] Jul, [facility] [address] [id number] [place] [address] Jul, [facility] [address] [id number] [place] [address] Jul, [facility] [address] [id number] [place] [address] Jul, [facility] [address] [id number] [place] [address] Jul, [facility] [address] [id number] [place] [address] Jul, [facility] [address] [id number] [place] [address] Jul, [facility] [address] [id number] [place] [address] Jul, [facility] [address] [id number] [place] [address] Jul, [facility] [address] [id number] [place] [address] Jul, [facility] [address] [id number] [place] [address] 30 Jun, 2012 [facility] [address] [facility] [id number] [place] [address] 30 Jun, 2012 [facility] [address] [facility] [id number] [place] [address] 29 Jun, 2012 [facility] [address] [id number] [place] [address] Jun, 2012 [facility] [address] [facility] [id number] [place] [address] Jun, [facility] [address] [facility] [id number] [place] [address] Jun, [facility] [address] [id number] [place] [address] 16 Jun, 2013 [facility] [address] [id number] [place] [address] Jun, [facility] [address] [id number] [place] [address] 25 May, 2012 [facility] [address] [facility] [id number] [place] [address] 18 May, 2013 [facility] [address] [id number] [place] [address] 11 May, 2013 [facility] [address] [id number] [place] [address] 10 May, 2012 [facility] [address] [id number] [place] [address] 09 May, 2012 [facility] [address] [facility] [id number] [place] [address] 04 May, 2012 [facility] [address] [id number] [place] [address] 30 Apr, 2013 [facility] [address] [id number] [place] [address] Apr, [facility] [address] [id number] [place] [address] Apr, [facility] [address] [id number] [place] [address] Apr, [facility] [address] [id number] [place] [address] Apr, [facility] [address] [id number] [place] [address] Mar, [facility] [id number] [place] [address] Mar, [facility] [id number] [place] [address] Mar, [facility] [id number] [place] [address] Feb, [facility] [id number] [place] [address] Feb, [facility] [id number] [place] [address] Feb, [facility] [address] [id number] [place] [address] January, [facility] [id number] [place] [address] January, [facility] [id number] [place] [address] Dec, [facility] [address] [id number] [place], [place] [id number] Nov, [facility] [address] [id number] [place] [address] Nov, IMMUNIZATIONS No Known Immunizations SOCIAL HISTORY [...]
--- OUTSIDE RECORDS SUMMARY | 2019-12-04 11:52 | XMS REPORT ---
Author Author Shireen Moyer Doctor Organization [facility] Address Unknown Phone Unavailable Care Team Providers Care Rn Eligibility Name Role Phone Migration, Doctor Unavailable Unavailable PROBLEMS Type Condition ICD9-CM Code [id number] Code Onset Dates Condition S tatus SNOMED Code Problem Bipolar disorder, current episode depressed, moderate F31.32 Active 890804684 Problem Anorexia nervosa F50.00 Active 568 68185 Problem Personality disorder, unspecified F60.9 Active [id number] Problem Post-traumatic stress disorder, chronic F43.12 Active [id number] ALLERGIES No Information ENCOUNTERS Encounter Location Date Diagnosis [place] [address] [address] Sep, [facility] [address] [address] Sep, [facility] [address] [address] Sep, [facility] [address] [address] Sep, [facility] [address] [address] Sep, [facility] [address] [address] Aug, [facility] [address] [address] Aug, [facility] [address] [address] Aug, [facility] [address] [address] Aug, Bipolar disorder, current episode depres sed, moderate F31.32 ; Post- traumatic stress disorder, chronic F43.12 ; Anorexia nervosa F50.00 and Personality disorder, unspecified F60.9 [place] [address] [address] 08 Jul, 2017 Bipolar disorder, current episode depres sed, moderate F31.32 and Anorexia nervosa F50.00 [place] [address] [address] Jul, [place] [address] [address] Jul, [place] [address] [place] [address] Jul, [place] [address] [address] Jun, Bipolar disorder, current episode depres sed, moderate F31.32 ; Post- traumatic stress disorder, chronic F43.12 and Eating disorder, unspecified F50.9 [place] [address] [address] May, [place] [address] [address] Apr, Bipolar disorder, current episode depres sed, moderate F31.32 ; Post- traumatic stress disorder, chronic F43.12 and Eating disorder, unspecified F50.9 [place] [address] [address] 14 Feb, 2016 Bipolar disorder, current episode depres sed, moderate F31.32 ; Post- traumatic stress disorder, chronic F43.12 and Personality disorder, unspecified F60.9 [place] [address] [address] 14 Feb, 2016 Bipolar II disorder F31.81 [place] [address] [address] 27 Dec, 2015 Bipolar disorder, current episode depres sed, moderate F31.32 ; Post- traumatic stress disorder, chronic F43.12 and Personality disorder, unspecified F60.9 [place] [address] [address] Dec, Bipolar disorder, current episode depres sed, moderate F31.32 ; Post- traumatic stress disorder, chronic F43.12 and Personality disorder, unspecified F60.9 [place] [address] [address] Dec, [facility] [address] [address] Dec, [facility] [address] [address] Dec, Bipolar disorder, current episode depres sed, moderate F31.32 ; Post- traumatic stress disorder, chronic F43.12 and Personality disorder, unspecified F60.9 [place] [address] [address] Nov, [place] [address] [address] Nov, Bipolar disorder, current episode depres sed, moderate F31.32 ; Post- traumatic stress disorder, chronic F43.12 and Personality disorder, unspecified F60.9 [place] [address] [address] Nov, Bipolar disorder, current episode depres sed, moderate F31.32 ; Post- traumatic stress disorder, chronic F43.12 and Personality disorder, unspecified F60.9 [place] [address] [address] Oct, [facility] [address] [place] [address] Oct, Bipolar disorder, current episode depres sed, moderate F31.32 ; Post- traumatic stress disorder, chronic F43.12 and Personality disorder, unspecified F60.9 [place] [address] [place] [id number] 05 Oct, 2015 Bipolar disorder, current episode depres sed, moderate F31.32 ; Post- traumatic stress disorder, chronic F43.12 and Personality disorder, unspecified F60.9 [place] [address] [address] Aug, Bipolar II disorder F31.81 and Post-trau matic stress disorder, unspecified F43.10 [place] [address] [place] [address] Aug, Bipolar disorder, current episode depres sed, moderate F31.32 ; Post- traumatic stress disorder, chronic F43.12 and Personality disorder, unspecified F60.9 [place] [address] [address] Jul, Bipolar disorder, unspecified 296.80 and Posttraumatic stress disorder 309.81 [place] [address] [place] [address] Jul, Post-traumatic stress disorder, chronic F43.12 ; Personality disorder, unspecified F60.9 and Bipolar disorder, current episode depressed, moderate F31.32 [place] [address] [address] Jun, Bipolar disorder, unspecified 296.80 and Posttraumatic stress disorder 309.81 [place] [address] [address] Jun, Bipolar disorder, unspecified 296.80 and Posttraumatic stress disorder 309.81 [place] [address] [address] Jun, Posttraumatic stress disorder 309.81 and Bipolar disorder, unspecified 296.80 [place] [address] [address] May, Bipolar II disorder 296.89 and Post trau matic stress disorder 309.81 [place] [address] [address] 18 May, 2015 Bipolar II disorder 296.89 and Post trau matic stress disorder 309.81 [place] [address] [address] 17 May, 2015 [place] [address] [place] [id number] May, [facility] [address] [place] [id number] [place] [address] May, [facility] [address] [place] [id number] [place] [address] May, [facility] [address] [place] [id number] [place] [address] May, Bipolar II disorder 296.89 and Post trau matic stress disorder 309.81 [facility] [address] [place] [id number] [place] [address] May, Bipolar I disorder, most recent episode (or current) depressed, moderate 296.52 ; Posttraumatic stress disorder 309.81 and Anxiety state, unspecified 300.00 [facility] [address] [place] [id number] [place] [address] Apr, Bipolar II disorder 296.89 and Post trau matic stress disorder 309.81 [facility] [address] [place] [id number] [place] [address] Apr, [facility] [address] [address] Apr, Bipolar II disorder 296.89 and Post trau matic stress disorder 309.81 [facility] [address] [place] [id number] [place] [address] Apr, Bipolar II disorder 296.89 and Post trau matic stress disorder 309.81 [facility] [address] [place] [id number] [place] [address] Mar, Bipolar II disorder 296.89 and Post trau matic stress disorder 309.81 [facility] [address] [place] [id number] [place] [address] Mar, [facility] [address] [address] Mar, Bipolar II disorder 296.89 and Post trau matic stress disorder 309.81 [facility] [address] [address] Mar, Bipolar II disorder 296.89 and Post trau matic stress disorder 309.81 [facility] [address] [place] [id number] [place] [address] Mar, Bipolar II disorder 296.89 and Post trau matic stress disorder 309.81 [facility] [address] [place] [id number] [place] [address] Mar, [facility] [address] [address] Mar, Bipolar II disorder 296.89 and Post trau matic stress disorder 309.81 [facility] [address] [address] Feb, Bipolar II disorder 296.89 and Post trau matic stress disorder 309.81 [facility] [address] [place] [id number] [place] [address] Feb, [facility] [address] [address] Feb, Bipolar disorder, unspecified 296.80 and Anxiety state, unspecified 300.00 [facility] [address] [place] [id number] [place] [address] Feb, [facility] [address] [address] Feb, [facility] [address] [place] [id number] [place] [address] January, [facility] [address] [place] [id number] [place] [address] Dec, [facility] [address] [place] [id number] [place] [address] Dec, [facility] [address] [place] [id number] [place] [address] Nov, [facility] [address] [place] [id number] [place] [address] Nov, [facility] [address] [place] [id number] [place] [address] Nov, [facility] [place] [facility] [address] [id number] [place] [address] Nov, [facility] [place] [facility] [address] [facility] [id number] [facility] [address] Nov, [facility] [place] [facility] [address] [id number] [place] [address] Nov, [facility] [place] [facility] [address] [id number] [place] [address] Nov, [facility] [place] [facility] [address] [facility] [id number] [facility] [address] Nov, [facility] [place] [facility] [address] [id number] [place] [address] Nov, [facility] [place] [facility] [address] [id number] [place] [address] Oct, [facility] [place] [facility] [address] [id number] [place] [address] Oct, [facility] [place] [facility] [address] [id number] [place] [address] Oct, [facility] [place] [facility] [address] [id number] [place] [address] Oct, [facility] [place] [facility] [address] [id number] [place] [address] Oct, [facility] [place] [facility] [address] [id number] [place] [address] Oct, [facility] [place] [facility] [address] [id number] [place] [address] Oct, [facility] [place] [facility] [address] [id number] [place] [address] Oct, [facility] [place] [facility] [address] [id number] [place] [address] Sep, [facility] [place] [facility] [address] [id number] [place] [address] Sep, [facility] [place] [facility] [address] [id number] [place] [address] Sep, [facility] [place] [facility] [address] [id number] [place] [address] Sep, [facility] [place] [facility] [address] [id number] [place] [address] Sep, [facility] [place] [facility] [address] [id number] [place] [address] Sep, [facility] [place] [facility] [address] [id number] [place] [address] Sep, [facility] [place] [facility] [address] [id number] [place] [address] Sep, [facility] [place] [facility] [address] [id number] [place] [address] Sep, [facility] [place] [facility] [address] [id number] [place] [address] Sep, [facility] [place] [facility] [address] [id number] [place] [address] Aug, [facility] [place] [facility] [address] [id number] [place] [address] Aug, [facility] [place] [facility] [address] [id number] [place] [address] Aug, [facility] [place] [facility] [address] [id number] [place] [address] Aug, [facility] [place] [facility] [address] [id number] [place] [address] Aug, [facility] [place] [facility] [address] [id number] [place] [address] Aug, [facility] [place] [facility] [address] [id number] [place] [address] Aug, [facility] [place] [facility] [address] [id number] [place] [address] Aug, [facility] [place] [facility] [address] [id number] [place] [address] Jul, [facility] [place] [facility] [address] [id number] [place] [address] Jul, [facility] [place] [facility] [address] [id number] [place] [address] Jul, [facility] [place] [facility] [address] [id number] [place] [address] Jul, [facility] [place] [facility] [address] [id number] [place] [address] Jul, [facility] [place] [facility] [address] [id number] [place] [address] Jul, [facility] [place] [facility] [address] [id number] [place] [address] Jul, [facility] [place] [facility] [address] [id number] [place] [address] Jul, [facility] [place] [facility] [address] [id number] [place] [address] Jul, [facility] [place] [facility] [address] [id number] [place] [address] Jun, [facility] [place] [facility] [address] [id number] [place] [address] Jun, [facility] [place] [facility] [address] [id number] [place] [address] Jun, [facility] [place] [facility] [address] [id number] [place] [address] Jun, [facility] [place] [facility] [address] [id number] [place] [address] Jun, [facility] [place] [facility] [address] [id number] [place] [address] Jun, [facility] [place] [facility] [address] [id number] [place] [address] May, [facility] [place] [facility] [address] [id number] [place] [address] May, [facility] [place] [facility] [address] [id number] [facility] [address] 16 May, 2013 [facility] [place] [facility] [address] [id number] [place] [address] May, [facility] [place] [facility] [address] [facility] [id number] [facility] [address] May, [facility] [place] [facility] [address] [id number] [place] [address] May, [facility] [place] [facility] [address] [facility] [id number] [facility] [address] Apr, [facility] [place] [facility] [address] [id number] [facility] [address] Apr, [facility] [place] [facility] [address] [id number] [place] [address] Apr, [facility] [place] [facility] [address] [id number] [place] [address] Apr, [facility] [place] [facility] [address] [id number] [place] [address] Apr, [facility] [place] [facility] [address] [facility] [id number] [place] [address] Apr, [facility] [place] [facility] [address] [id number] [place] [address] Mar, [facility] [place] [facility] [address] [id number] [place] [address] Mar, [facility] [place] [facility] [address] [id number] [facility] [address] Mar, [facility] [place] [facility] [address] [id number] [place] [address] Mar, [facility] [place] [facility] [address] [id number] [place] [address] Mar, [facility] [place] [facility] [address] [facility] [id number] [place] [address] Mar, [facility] [place] [facility] [address] [id number] [place] [address] Mar, [facility] [place] [facility] [address] [id number] [place] [address] Mar, 2013 [facility] [place] [facility] [address] [facility] [id number] [place] [address] Mar, 2013 [facility] [place] [facility] [address] [id number] [place] [address] Mar, 2013 [facility] [place] [facility] [address] [id number] [place] [address] Mar, 2013 [facility] [place] [facility] [address] [facility] [id number] [place] [address] Mar, 2013 [facility] [place] [facility] [address] [id number] [place] [address] Mar, 2013 [facility] [place] [facility] [address] [id number] [place] [address] Mar, 2013 [facility] [place] [facility] [address] [id number] [place] [address] Mar, 2013 [facility] [place] [facility] [address] [id number] [place] [address] Mar, 2013 [facility] [place] [facility] [address] [id number] [place] [address] Feb, [facility] [place] [facility] [address] [id number] [place] [address] Feb, [facility] [place] [facility] [address] [id number] [place] [address] Feb, [facility] [place] [facility] [address] [id number] [place] [address] Feb, [facility] [place] [facility] [address] [facility] [id number] [place] [address] Feb, [facility] [place] [facility] [address] [id number] [place] [address] Feb, [facility] [place] [facility] [address] [id number] [place] [address] Feb, [facility] [place] [facility] [address] [id number] [place] [address] Feb, [facility] [place] [facility] [address] [id number] [facility] [address] Feb, [facility] [place] [facility] [address] [facility] [id number] [facility] [address] Feb, [facility] [place] [facility] [address] [facility] [id number] [place] [address] Feb, [facility] [place] [facility] [address] [id number] [facility] [address] Feb, [facility] [place] [facility] [address] [facility] [id number] [facility] [address] Feb, [facility] [place] [facility] [address] [id number] [place] [address] January, [facility] [place] [facility] [address] [id number] [place] [address] January, [facility] [place] [facility] [address] [id number] [place] [address] January, [facility] [place] [facility] [address] [id number] [place] [address] January, [facility] [place] [facility] [address] [id number] [place] [address] January, [facility] [place] [facility] [address] [id number] [place] [address] January, [facility] [place] [facility] [address] [id number] [place] [address] January, [facility] [place] [facility] [address] [id number] [place] [address] January, [facility] [place] [facility] [address] [id number] [place] [address] January, [facility] [place] [facility] [address] [id number] [place] [address] January, [facility] [place] [facility] [address] [id number] [place] [address] January, [facility] [place] [facility] [address] [id number] [place] [address] January, [facility] [place] [facility] [address] [facility] [id number] [facility] [address] January, [facility] [place] [facility] [address] [facility] [id number] [place] [address] January, [facility] [place] [facility] [address] [id number] [facility] [address] Dec, [facility] [place] [facility] [address] [id number] [facility] [address] Dec, [facility] [place] [facility] [address] [facility] [id number] [facility] [address] Dec, [facility] [place] [facility] [address] [id number] [place] [address] Dec, [facility] [place] [facility] [address] [id number] [place] [address] Dec, [facility] [place] [facility] [address] [id number] [place] [address] Dec, [facility] [place] [facility] [address] [id number] [place] [address] Dec, [facility] [place] [facility] [address] [id number] [place] [address] Dec, [facility] [place] [facility] [address] [id number] [place] [address] Nov, [facility] [place] [facility] [address] [id number] [place] [address] Nov, [facility] [place] [facility] [address] [id number] [place] [address] Nov, [facility] [address] [id number] [place] [address] Nov, [facility] [address] [id number] [place] [address] Oct, [facility] [address] [id number] [place] [address] Oct, [facility] [address] [id number] [place] [address] Oct, [facility] [address] [id number] [place] [address] Oct, [facility] [address] [id number] [place] [address] Oct, [facility] [address] [id number] [place] [address] Oct, [facility] [address] [id number] [place] [address] Sep, [facility] [address] [id number] [place] [address] Sep, [facility] [address] [id number] [place] [address] Sep, [facility] [address] [id number] [place] [address] Sep, [facility] [address] [id number] [place] [address] Sep, [facility] [address] [id number] [place] [address] Sep, [facility] [address] [id number] [place] [address] Sep, [facility] [address] [id number] [place] [address] Sep, [facility] [address] [id number] [place] [address] Sep, [facility] [address] [id number] [place] [address] Sep, [facility] [address] [id number] [place] [address] Aug, [facility] [address] [id number] [place] [address] Aug, [facility] [address] [id number] [place] [address] Aug, [facility] [address] [id number] [place] [address] Aug, [facility] [address] [id number] [place] [address] Aug, [facility] [address] [id number] [place] [address] Aug, [facility] [address] [id number] [place] [address] Aug, [facility] [address] [id number] [place] [address] Aug, [facility] [address] [id number] [place] [address] Jul, [facility] [address] [id number] [place] [address] Jul, [facility] [address] [id number] [place] [address] Jul, [facility] [address] [id number] [place] [address] Jul, [facility] [address] [id number] [place] [address] Jul, [facility] [address] [id number] [place] [address] Jul, [facility] [address] [id number] [place] [address] Jul, [facility] [address] [id number] [place] [address] Jul, [facility] [address] [id number] [place] [address] Jul, [facility] [address] [id number] [place] [address] Jul, [facility] [address] [id number] [place] [address] Jul, [facility] [address] [id number] [place] [address] 06 Jul, 2012 [facility] [facility] [address] [facility] [id number] [place] [address] 30 Jun, 2012 [facility] [address] [id number] [place] [address] Jun, [facility] [address] [id number] [place] [address] Jun, [facility] [address] [id number] [place] [address] Jun, [facility] [address] [id number] [place] [address] Jun, [facility] [address] [id number] [place] [address] Jun, [facility] [address] [id number] [place] [address] 16 Jun, 2013 [facility] [address] [id number] [place] [address] Jun, [facility] [address] [id number] [place] [address] 25 May, 2013 [facility] [address] [id number] [place] [address] 18 May, 2013 [facility] [address] [id number] [place] [address] 11 May, 2013 [facility] [address] [id number] [place] [address] 10 May, 2012 [facility] [address] [facility] [id number] [place] [address] 09 May, 2012 [facility] [address] [id number] [place] [address] 04 May, 2012 [facility] [address] [id number] [place] [address] 30 Apr, 2013 [facility] [address] [id number] [place] [address] Apr, [facility] [id number] [place] [address] Apr, [facility] [id number] [place] [address] Apr, [facility] [address] [id number] [place] [address] Apr, [facility] [id number] [place] [address] Mar, [facility] [id number] [place] [address] Mar, [facility] [id number] [place] [address] Mar, [facility] [id number] [place] [address] Feb, [facility] [id number] [place] [address] Feb, [facility] [id number] [place] [address] Feb, [facility] [id number] [place] [address] January, [facility] [id number] [place] [address] January, [facility] [id number] [place] [address] Dec, [facility] [id number] [place] [address] Nov, [facility] [id number] [place] [address] Nov, IMMUNIZATIONS No Known Immunizations SOCIAL HISTORY [...]
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
--- OUTSIDE RECORDS SUMMARY | 2019-12-04 11:58 | XMS REPORT ---
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 Name Role Phone SONAL Cantu Unavailable PROBLEMS Type Condition ICD9-CM Code VIT30-IM Code Onset Dates Condition S tatus SNOMED Code Problem Bipolar disorder, current episode depressed, moderate F31.32 Active 871599170 Problem Anorexia nervosa F50.00 Active 568 01841 Problem Personality disorder, unspecified F60.9 Active [id number] Problem Post-traumatic stress disorder, chronic F43.12 Active [id number] ALLERGIES No Information ENCOUNTERS Encounter Location Date Diagnosis [place] [id number] [place] [id number] [place] [id number] Jul, Bipolar disorder, current ep isode depressed, moderate F31.32 and Anorexia nervosa F50.00 [facility] [address] [place] [id number] [address] [place] [address] Jul, [place] [address] [place] [id number] [address] [place] [address] Jul, [place] [address] [place] [id number] [address] [place] [address] Jul, [facility] [address] [id number] [address] [place] [address] Jun, Bipolar disorder, current ep isode depressed, moderate F31.32 ; Post-traumatic stress disorder, chronic F43.12 and Eating disorder, unspecified F50.9 [facility] [address] [facility] [id number] [address] [place] [address] May, [place] [address] [place] [id number] [address] [place] [address] Apr, Bipolar disorder, current ep isode depressed, moderate F31.32 ; Post-traumatic stress disorder, chronic F43.12 and Eating disorder, unspecified F50.9 [place] [address] [id number] [address] [place], [place] [id number] 14 Feb, 2016 Bipolar disorder, current ep isode depressed, moderate F31.32 ; Post-traumatic stress disorder, chronic F43.12 and Personality disorder, unspecified F60.9 [place] [address] [id number] [address] [place] [address] Feb, Bipolar II disorder F31.81 [place] [address] [id number] [address] [place] [address] Dec, Bipolar disorder, current ep isode depressed, moderate F31.32 ; Post-traumatic stress disorder, chronic F43.12 and Personality disorder, unspecified F60.9 [place] [address] [id number] [address] [place] [address] Dec, Bipolar disorder, current ep isode depressed, moderate F31.32 ; Post-traumatic stress disorder, chronic F43.12 and Personality disorder, unspecified F60.9 [place] [address] [id number] [address] [place] [address] Dec, [place] [address] [id number] [address] [place], [place] [id number] Dec, [place] [address] [id number] [address] [place] [address] Dec, Bipolar disorder, current ep isode depressed, moderate F31.32 ; Post-traumatic stress disorder, chronic F43.12 and Personality disorder, unspecified F60.9 [place] [address] [id number] [address] [place] [address] Nov, [place] [address] [id number] [address] [place] [address] Nov, Bipolar disorder, current ep isode depressed, moderate F31.32 ; Post-traumatic stress disorder, chronic F43.12 and Personality disorder, unspecified F60.9 [place] [address] [facility] [id number] [address] [place] [address] Nov, Bipolar disorder, current ep isode depressed, moderate F31.32 ; Post-traumatic stress disorder, chronic F43.12 and Personality disorder, unspecified F60.9 [place] [address] [facility] [id number] [address] [place] [address] Oct, [place] [address] [facility] [id number] [address] [place] [address] Oct, Bipolar disorder, current ep isode depressed, moderate F31.32 ; Post-traumatic stress disorder, chronic F43.12 and Personality disorder, unspecified F60.9 [place] [address] [facility] [id number] [address] [place] [address] Oct, Bipolar disorder, current ep isode depressed, moderate F31.32 ; Post-traumatic stress disorder, chronic F43.12 and Personality disorder, unspecified F60.9 [place] [address] [facility] [id number] [address] [place] [address] Aug, Bipolar II disorder F31.81 a nd Post-traumatic stress disorder, unspecified F43.10 [place] [address] [facility] [id number] [address] [place] [address] Aug, Bipolar disorder, current ep isode depressed, moderate F31.32 ; Post-traumatic stress disorder, chronic F43.12 and Personality disorder, unspecified F60.9 [place] [address] [facility] [id number] [address] [place] [address] Jul, Bipolar disorder, unspecifie d 296.80 and Posttraumatic stress disorder 309.81 [place] [address] [facility] [id number] [address] [place] [address] Jul, Post-traumatic stress disord er, chronic F43.12 ; Personality disorder, unspecified F60.9 and Bipolar disorder, current episode depressed, moderate F31.32 [place] [address] [facility] [id number] [address] [place] [address] Jun, Bipolar disorder, unspecifie d 296.80 and Posttraumatic stress disorder 309.81 [facility] [address] [facility] [id number] [address] [place] [address] Jun, Bipolar disorder, unspecifie d 296.80 and Posttraumatic stress disorder 309.81 [facility] [address] [facility] [id number] [address] [place] [address] Jun, Posttraumatic stress disorde r 309.81 and Bipolar disorder, unspecified 296.80 [facility] [address] [facility] [id number] [address] [place] [address] May, Bipolar II disorder 296.89 a nd Post traumatic stress disorder 309.81 [facility] [address] [facility] [id number] [address] [place] [address] May, Bipolar II disorder 296.89 a nd Post traumatic stress disorder 309.81 [facility] [address] [place] [id number] [address] [place] [address] May, [facility] [address] [facility] [id number] [address] [place] [address] May, [facility] [address] [place] [id number] [address] [place] [address] May, [facility] [address] [place] [id number] [address] [place] [address] May, [facility] [address] [place] [id number] [address] [place] [address] May, Bipolar II disorder 296.89 a nd Post traumatic stress disorder 309.81 [facility] [address] [facility] [id number] [address] [place] [address] May, Bipolar I disorder, most rec ent episode (or current) depressed, moderate 296.52 ; Posttraumatic stress disorder 309.81 and Anxiety state, unspecified 300.00 [facility] [address] [place] [id number] [address] [place] [address] Apr, Bipolar II disorder 296.89 a nd Post traumatic stress disorder 309.81 [facility] [address] [id number] [address] [place] [address] Apr, [facility] [address] [id number] [address] [place] [address] Apr, Bipolar II disorder 296.89 a nd Post traumatic stress disorder 309.81 [facility] [address] [id number] [address] [place] [address] Apr, Bipolar II disorder 296.89 a nd Post traumatic stress disorder 309.81 [facility] [address] [id number] [address] [place] [address] Mar, Bipolar II disorder 296.89 a nd Post traumatic stress disorder 309.81 [facility] [address] [id number] [address] [place] [address] Mar, [facility] [address] [id number] [address] [place] [address] Mar, Bipolar II disorder 296.89 a nd Post traumatic stress disorder 309.81 [facility] [address] [id number] [address] [place] [address] Mar, Bipolar II disorder 296.89 a nd Post traumatic stress disorder 309.81 [facility] [address] [id number] [address] [place] [address] Mar, Bipolar II disorder 296.89 a nd Post traumatic stress disorder 309.81 [facility] [address] [id number] [address] [place] [address] Mar, [facility] [address] [id number] [address] [place] [address] Mar, Bipolar II disorder 296.89 a nd Post traumatic stress disorder 309.81 [facility] [address] [id number] [address] [place] [address] Feb, Bipolar II disorder 296.89 a nd Post traumatic stress disorder 309.81 [facility] [address] [id number] [address] [place] [address] 16 Feb, 2015 [facility] [address] [id number] [address] [place] [address] Feb, Bipolar disorder, unspecifie d 296.80 and Anxiety state, unspecified 300.00 [facility] [address] [id number] [address] [place] [address] Feb, [facility] [address] [id number] [address] [place] [address] Feb, [facility] [address] [id number] [address] [place] [address] January, [facility] [address] [id number] [address] [place] [address] Dec, [facility] [address] [id number] [address] [place] [address] Dec, [facility] [address] [id number] [address] [place] [address] Nov, [facility] [address] [id number] [address] [place] [address] Nov, [facility] [address] [id number] [address] [place] [address] Nov, [facility] [address] [id number] [address] [place] [address] Nov, [facility] [address] [id number] [address] [place] [address] Nov, [facility] [address] [id number] [address] [place] [address] Nov, [facility] [address] [id number] [address] [place] [address] Nov, [facility] [address] [id number] [address] [place] [phone] Nov, [facility] [address] [id number] [address] [place] [address], [place] [address] Nov, [facility] [address] [id number] [address] [place] [address], [place] [address] Oct, [facility] [address] [id number] [address] [place] [address], [place] [address] Oct, 2014 [facility] [address] [id number] [address] [place] [address], [place] [address] Oct, 2014 [facility] [address] [id number] [address] [place] [address], [place] [address] Oct, [facility] [address] [id number] [address] [place] [address], [place] [address] Oct, [facility] [address] [id number] [address] [place] [address], [place] [address] Oct, [facility] [address] [id number] [address] [place] [address], [place] [address] Oct, [facility] [address] [id number] [address] [place] [address], [place] [address] Oct, [facility] [address] [id number] [address] [place] [address], [place] [address] Sep, [facility] [address] [id number] [address] [place] [address], [place] [address] Sep, [facility] [address] [id number] [address] [place] [address], [place] [address] Sep, [facility] [address] [id number] [address] [place] [address] Sep, [facility] [address] [id number] [address] [place] [address], [place] [address] Sep, [facility] [address] [id number] [address] [place] [address] Sep, [facility] [address] [id number] [address] [place] [address] Sep, [facility] [address] [id number] [address] [place] [address], [place] [address] Sep, [facility] [address] [id number] [address] [place] [address], [place] [address] Sep, [facility] [address] [id number] [address] [place] [address], [place] [address] Sep, [facility] [address] [id number] [address] [place] [address], [place] [address] Aug, [facility] [address] [id number] [address] [place] [address], [place] [address] Aug, [facility] [address] [id number] [address] [place] [address], [place] [address] Aug, [facility] [address] [id number] [address] [place] [address], [place] [address] Aug, [facility] [address] [id number] [address] [place] [address], [place] [address] Aug, [facility] [address] [id number] [address] [place] [address], [place] [address] Aug, [facility] [address] [id number] [address] [place] [address], [place] [address] Aug, [facility] [address] [id number] [address] [place] [address], [place] [address] Aug, [facility] [address] [id number] [address] [place] [address], [place] [address] Jul, [facility] [address] [id number] [address] [place] [address], [place] [address] Jul, [facility] [address] [id number] [address] [place] [address], [place] [address] Jul, [facility] [address] [id number] [address] [place] [address], [place] [address] Jul, [facility] [address] [id number] [address] [place] [address], [place] [address] Jul, [facility] [address] [id number] [address] [place] [address], [place] [address] Jul, [facility] [address] [id number] [address] [place] [address], [place] [address] Jul, [facility] [address] [id number] [address] [place] [address], [place] [address] Jul, [facility] [address] [id number] [address] [place] [address], [place] [address] Jul, [facility] [address] [id number] [address] [place] [address], [place] [address] Jun, [facility] [address] [id number] [address] [place] [address], [place] [address] Jun, [facility] [address] [id number] [address] [place] [address], [place] [address] Jun, [facility] [address] [id number] [address] [place] [address], [place] [address] Jun, [facility] [address] [id number] [address] [place] [address], [place] [address] Jun, [facility] [address] [id number] [address] [place] [address], [place] [address] Jun, [facility] [address] [id number] [address] [place] [address], [place] [address] 25 May, 2013 [facility] [address] [id number] [address] [place] [address], [place] [address] 25 Sep, 2013 [facility] [address] [id number] [address] [place] [address], [place] [address] 16 Sep, 2013 [facility] [address] [id number] [address] [place] [address], [place] [address] 16 Sep, 2013 [facility] [address] [id number] [address] [place] [address], [place] [address] May, [facility] [address] [id number] [facility] [place] [address] May, [facility] [address] [id number] [facility] [place] [address] Apr, [facility] [address] [id number] [facility] [place] [address] Apr, [facility] [address] [id number] [address] [place] [address], [place] [address] Apr, [facility] [address] [id number] [address] [place] [address], [place] [address] Apr, [facility] [address] [id number] [address] [place] [address], [place] [address] Apr, [facility] [address] [id number] [address] [place] [address], [place] [address] Apr, [facility] [address] [id number] [address] [place] [address], [place] [address] Mar, [facility] [address] [id number] [address] [place] [address], [place] [address] Mar, [facility] [address] [id number] [address] [place] [address], [place] [address] Mar, [facility] [address] [id number] [address] [place] [address], [place] [address] Mar, [facility] [address] [id number] [address] [place] [address], [place] [address] Mar, [facility] [address] [id number] [address] [place] [address], [place] [address] Mar, [facility] [address] [id number] [address] [place] [address], [place] [address] Mar, [facility] [address] [id number] [address] [place] [address], [place] [address] Mar, [facility] [address] [id number] [address] [place] [address], [place] [address] Mar, 2013 [facility] [address] [id number] [facility] [place] [address] Mar, 2013 [facility] [address] [id number] [address] [place] [address], [place] [address] Mar, 2013 [facility] [address] [id number] [address] [place] [address], [place] [address] Mar, 2013 [facility] [address] [id number] [address] [place] [address], [place] [address] Mar, 2013 [facility] [address] [id number] [address] [place] [address], [place] [address] Mar, 2013 [facility] [address] [id number] [address] [place] [address], [place] [address] Mar, [facility] [address] [id number] [address] [place] [address], [place] [address] Mar, [facility] [address] [id number] [address] [place] [address], [place] [address] Feb, [facility] [address] [id number] [address] [place] [address], [place] [address] Feb, [facility] [address] [id number] [address] [place] [address], [place] [address] Feb, [facility] [address] [id number] [address] [place] [address], [place] [address] Feb, [facility] [address] [id number] [address] [place] [address], [place] [address] 24 Feb, 2014 [facility] [address] [id number] [address] [place] [address], [place] [address] Feb, [facility] [address] [id number] [address] [place] [address], [place] [address] Feb, [facility] [address] [id number] [address] [place] [address], [place] [address] 16 Feb, 2014 [facility] [address] [id number] [facility] [place] [address] Feb, [facility] [address] [id number] [facility] [place] [address] Feb, [facility] [address] [id number] [facility] [place] [address] Feb, [facility] [address] [id number] [address] [place] [address], [place] [address] Feb, [facility] [address] [id number] [address] [place] [address], [place] [address] Feb, [facility] [address] [id number] [address] [place] [address], [place] [id number] January, [facility] [address] [id number] [address] [place] [address], [place] [id number] January, [facility] [address] [id number] [address] [place] [address], [place] [id number] January, [facility] [address] [id number] [address] [place] [address], [place] [id number] January, [facility] [address] [id number] [address] [place] [address], [place] [id number] January, [facility] [address] [id number] [address] [place] [address], [place] [id number] January, [facility] [address] [id number] [address] [place] [address], [place] [id number] January, [facility] [address] [id number] [address] [place] [address], [place] [id number] January, [facility] [address] [id number] [address] [place] [address], [place] [phone] January, [facility] [address] [id number] [address] [place] [address], [place] [id number] January, [facility] [address] [id number] [address] [place] [address], [place] [phone] January, [facility] [address] [id number] [address] [place] [address], [place] [address] January, [facility] [address] [id number] [address] [place] [address], [place] [address] January, [facility] [address] [id number] [address] [place] [address], [place] [address] January, [facility] [address] [id number] [address] [place] [address], [place] [address] Dec, [facility] [address] [id number] [address] [place] [address], [place] [id number] Dec, [facility] [address] [id number] [address] [place] [address], [place] [id number] Dec, [facility] [address] [id number] [address] [place] [address], [place] [id number] Dec, [facility] [address] [id number] [address] [place] [address], [place] [address] Dec, [facility] [address] [id number] [address] [place] [address], [place] [id number] Dec, [facility] [address] [id number] [address] [place] [address], [place] [id number] Dec, [facility] [address] [id number] [address] [place] [address], [place] [id number] Dec, [facility] [address] [id number] [address] [place] [address], [place] [id number] Nov, [facility] [address] [id number] [address] [place] [address], [place] [id number] Nov, [facility] [address] [id number] [address] [place] [address], [place] [id number] Nov, [facility] [address] [id number] [address] [place] [address], [place] [id number] Nov, [facility] [address] [id number] [address] [place] [address], [place] [id number] Oct, [facility] [address] [id number] [address] [place] [address], [place] [id number] Oct, [facility] [address] [id number] [address] [place] [address], [place] [id number] Oct, [facility] [address] [id number] [address] [place] [address], [place] [id number] Oct, [facility] [address] [id number] [address] [place] [address], [place] [id number] Oct, [facility] [address] [id number] [address] [place] [address], [place] [id number] Oct, [facility] [address] [id number] [address] [place] [address], [place] [id number] Sep, [facility] [address] [id number] [address] [place] [address], [place] [id number] Sep, [facility] [address] [id number] [address] [place] [address], [place] [id number] Sep, [facility] [address] [id number] [address] [place] [address], [place] [id number] Sep, [facility] [address] [id number] [address] [place] [address], [place] [id number] Sep, [facility] [address] [id number] [address] [place] [address], [place] [id number] Sep, [facility] [address] [id number] [address] [place] [address], [place] [id number] Sep, [facility] [address] [id number] [address] [place] [address], [place] [id number] Sep, [facility] [address] [id number] [address] [place] [address], [place] [id number] Sep, [facility] [address] [id number] [address] [place] [address], [place] [id number] Sep, [facility] [address] [id number] [address] [place] [address], [place] [id number] Aug, [facility] [address] [id number] [address] [place] [address], [place] [id number] Aug, [facility] [address] [id number] [address] [place] [address], [place] [address] Aug, [facility] [address] [id number] [address] [place] [address], [place] [id number] Aug, [facility] [address] [id number] [address] [place] [address], [place] [id number] Aug, [facility] [address] [id number] [address] [place] [address], [place] [id number] Aug, [facility] [address] [id number] [address] [place] [address], [place] [id number] Aug, [facility] [address] [id number] [address] [place] [address], [place] [id number] Aug, [facility] [address] [id number] [address] [place] [address], [place] [id number] Jul, [facility] [address] [id number] [address] [place] [address], [place] [id number] Jul, [facility] [address] [id number] [address] [place] [id number] Jul, [facility] [address] [id number] [address] [place] [id number] Jul, [facility] [address] [id number] [address] [place] [address], [place] [id number] Jul, [facility] [address] [id number] [address] [place] [address], [place] [id number] Jul, [facility] [address] [id number] [address] [place] [id number] Jul, [facility] [address] [id number] [address] [place] [id number] Jul, [facility] [address] [id number] [address] [place] [address], [place] [id number] Jul, [facility] [address] [id number] [address] [place] [id number] Jul, [facility] [address] [id number] [address] [place] [address], [place] [id number] Jul, [facility] [address] [id number] [address] [place] [id number] Jul, [facility] [address] [id number] [address] [place] [address], [place] [id number] Jun, [facility] [address] [id number] [address] [place] [id number] Jun, [facility] [address] [id number] [address] [place] [id number] Jun, [facility] [address] [id number] [address] [place] [address], [place] [id number] Jun, [facility] [address] [id number] [address] [place] [id number] Jun, [facility] [address] [id number] [address] [place] [id number] Jun, [facility] [address] [id number] [address] [place] [id number] Jun, [facility] [address] [id number] [address] [place] [id number] Jun, [facility] [address] [id number] [address] [place] [id number] 25 May, 2013 [facility] [address] [id number] [address] [place] [id number] 18 May, 2013 [facility] [address] [id number] [address] [place] [address], [place] [id number] 11 May, 2013 [facility] [address] [id number] [address] [place] [address], [place] [address] 10 May, 2013 [facility] [address] [id number] [address] [place] [address], [place] [id number] May, [facility] [address] [id number] [address] [place] [address], [place] [id number] May, [facility] [address] [id number] [address] [place] [address], [place] [id number] Apr, [facility] [address] [id number] [address] [place] [address], [place] [address] Apr, [facility] [address] [id number] [address] [place] [address], [place] [id number] Apr, [facility] [address] [id number] [address] [place] [address], [place] [phone] Apr, [facility] [address] [id number] [address] [place] [address], [place] [id number] Apr, [facility] [address] [id number] [address] [place] [address], [place] [id number] Mar, [facility] [address] [id number] [address] [place] [address], [place] [phone] Mar, [facility] [address] [id number] [address] [place] [address], [place] [id number] Mar, [facility] [address] [id number] [address] [place] [address], [place] [id number] Feb, [facility] [address] [id number] [address] [place] [address], [place] [id number] Feb, [facility] [address] [id number] [address] [place] [address], [place] [id number] Feb, [facility] [address] [id number] [address] [place] [address], [place] [id number] January, [facility] [address] [id number] [address] [place] [address], [place] [id number] January, [facility] [address] [facility] [id number] [address] [place] [id number] Dec, [facility] [address] [facility] [id number] [address] [place] [id number] Nov, [facility] [address] [facility] [id number] [address] [place] [id number] Nov, IMMUNIZATIONS No Known Immunizations SOCIAL HISTORY Never Assessed REASON FOR VISIT PLAN OF CARE VITAL SIGNS Height 69 in 2014-09-28 Weight 128.5 lbs 2014-09-28 Temperature 97.3 degrees Fahrenheit 2014-09-28 Heart Rate 72 bpm 2014-09-28 Respiratory Rate 24 2014-09-28 Blood pressure systolic 98 mmHg 2014-09-28 Blood pressure diastolic 66 mmHg 2014-09-28 MEDICATIONS No Known Medications RESULTS No Results [...]
--- OUTSIDE RECORDS SUMMARY | 2019-12-04 11:58 | XMS REPORT ---
Author Author Shireen Cantu Organization [facility] Address [address] [place] [address] Care Team Providers Care Tank House Supervisor Name Role Phone SONAL Cantu Unavailable PROBLEMS Type Condition ICD9-CM Code [id number] Code Onset Dates Condition S tatus SNOMED Code Problem Bipolar disorder, current episode depressed, moderate F31.32 Active 920448144 Problem Anorexia nervosa F50.00 Active 568 95836 Problem Personality disorder, unspecified F60.9 Active 53462931 Problem Post-traumatic stress disorder, chronic F43.12 Active [id number] ALLERGIES No Information ENCOUNTERS Encounter Location Date Diagnosis [place] [address] [place] [id number] [address] [place] [address] Jul, Bipolar disorder, current ep isode depressed, moderate F31.32 and Anorexia nervosa F50.00 [facility] [address] [id number] [address] [place] [address] Jul, [place] [address] [id number] [address] [place] [address] Jul, [place] [address] [id number] [address] [place] [address] Jul, [facility] [address] [id number] [address] [place] [address] Jun, Bipolar disorder, current ep isode depressed, moderate F31.32 ; Post-traumatic stress disorder, chronic F43.12 and Eating disorder, unspecified F50.9 [facility] [address] [facility] [id number] [address] [place] [address] May, [place] [address] [place] [id number] [address] [place] [address] Apr, Bipolar disorder, current ep isode depressed, moderate F31.32 ; Post-traumatic stress disorder, chronic F43.12 and Eating disorder, unspecified F50.9 [place] [address] [id number] [address] [place], [place] [id number] 14 Feb, 2016 Bipolar disorder, current ep isode depressed, moderate F31.32 ; Post-traumatic stress disorder, chronic F43.12 and Personality disorder, unspecified F60.9 [place] [address] [id number] [address] [place] [address] Feb, Bipolar II disorder F31.81 [place] [address] [id number] [address] [place] [address] Dec, Bipolar disorder, current ep isode depressed, moderate F31.32 ; Post-traumatic stress disorder, chronic F43.12 and Personality disorder, unspecified F60.9 [place] [address] [id number] [address] [place] [address] Dec, Bipolar disorder, current ep isode depressed, moderate F31.32 ; Post-traumatic stress disorder, chronic F43.12 and Personality disorder, unspecified F60.9 [place] [address] [id number] [address] [place] [address] Dec, [place] [address] [id number] [address] [place], [place] [id number] Dec, [place] [address] [id number] [address] [place] [address] Dec, Bipolar disorder, current ep isode depressed, moderate F31.32 ; Post-traumatic stress disorder, chronic F43.12 and Personality disorder, unspecified F60.9 [place] [address] [id number] [address] [place] [address] Nov, [place] [address] [id number] [address] [place] [address] Nov, Bipolar disorder, current ep isode depressed, moderate F31.32 ; Post-traumatic stress disorder, chronic F43.12 and Personality disorder, unspecified F60.9 [place] [address] [facility] [id number] [address] [place] [address] Nov, Bipolar disorder, current ep isode depressed, moderate F31.32 ; Post-traumatic stress disorder, chronic F43.12 and Personality disorder, unspecified F60.9 [place] [address] [facility] [id number] [address] [place] [address] Oct, [place] [address] [facility] [id number] [address] [place] [address] Oct, Bipolar disorder, current ep isode depressed, moderate F31.32 ; Post-traumatic stress disorder, chronic F43.12 and Personality disorder, unspecified F60.9 [place] [address] [facility] [id number] [address] [place] [address] Oct, Bipolar disorder, current ep isode depressed, moderate F31.32 ; Post-traumatic stress disorder, chronic F43.12 and Personality disorder, unspecified F60.9 [place] [address] [facility] [id number] [address] [place] [address] Aug, Bipolar II disorder F31.81 a nd Post-traumatic stress disorder, unspecified F43.10 [place] [address] [facility] [id number] [address] [place] [address] Aug, Bipolar disorder, current ep isode depressed, moderate F31.32 ; Post-traumatic stress disorder, chronic F43.12 and Personality disorder, unspecified F60.9 [place] [address] [facility] [id number] [address] [place] [address] Jul, Bipolar disorder, unspecifie d 296.80 and Posttraumatic stress disorder 309.81 [place] [address] [facility] [id number] [address] [place] [address] Jul, Post-traumatic stress disord er, chronic F43.12 ; Personality disorder, unspecified F60.9 and Bipolar disorder, current episode depressed, moderate F31.32 [place] [address] [facility] [id number] [address] [place] [address] Jun, Bipolar disorder, unspecifie d 296.80 and Posttraumatic stress disorder 309.81 [facility] [address] [facility] [id number] [address] [place] [address] Jun, Bipolar disorder, unspecifie d 296.80 and Posttraumatic stress disorder 309.81 [facility] [address] [facility] [id number] [address] [place] [address] Jun, Posttraumatic stress disorde r 309.81 and Bipolar disorder, unspecified 296.80 [facility] [address] [facility] [id number] [address] [place] [address] May, Bipolar II disorder 296.89 a nd Post traumatic stress disorder 309.81 [facility] [address] [facility] [id number] [address] [place] [address] May, Bipolar II disorder 296.89 a nd Post traumatic stress disorder 309.81 [facility] [address] [place] [id number] [address] [place] [address] May, [facility] [address] [facility] [id number] [address] [place] [address] May, [facility] [address] [place] [address] [id number] [address] [place] [address] May, [facility] [address] [place] [address] [id number] [address] [place] [address] May, [facility] [address] [place] [id number] [address] [place] [address] May, Bipolar II disorder 296.89 a nd Post traumatic stress disorder 309.81 [facility] [address] [facility] [id number] [address] [place] [address] May, Bipolar I disorder, most rec ent episode (or current) depressed, moderate 296.52 ; Posttraumatic stress disorder 309.81 and Anxiety state, unspecified 300.00 [facility] [address] [place] [id number] [address] [place] [address] Apr, Bipolar II disorder 296.89 a nd Post traumatic stress disorder 309.81 [facility] [address] [id number] [address] [place] [address] Apr, [facility] [address] [id number] [address] [place] [address] Apr, Bipolar II disorder 296.89 a nd Post traumatic stress disorder 309.81 [facility] [address] [id number] [address] [place] [address] Apr, Bipolar II disorder 296.89 a nd Post traumatic stress disorder 309.81 [facility] [address] [id number] [address] [place] [address] Mar, Bipolar II disorder 296.89 a nd Post traumatic stress disorder 309.81 [facility] [address] [id number] [address] [place] [address] Mar, [facility] [address] [id number] [address] [place] [address] Mar, Bipolar II disorder 296.89 a nd Post traumatic stress disorder 309.81 [facility] [address] [id number] [address] [place] [address] Mar, Bipolar II disorder 296.89 a nd Post traumatic stress disorder 309.81 [facility] [address] [id number] [address] [place] [address] Mar, Bipolar II disorder 296.89 a nd Post traumatic stress disorder 309.81 [facility] [address] [id number] [address] [place] [address] Mar, [facility] [address] [id number] [address] [place] [address] Mar, Bipolar II disorder 296.89 a nd Post traumatic stress disorder 309.81 [facility] [address] [id number] [address] [place] [address] Feb, Bipolar II disorder 296.89 a nd Post traumatic stress disorder 309.81 [facility] [address] [id number] [address] [place] [address] 16 Feb, 2015 [facility] [address] [id number] [address] [place] [address] Feb, Bipolar disorder, unspecifie d 296.80 and Anxiety state, unspecified 300.00 [facility] [address] [id number] [address] [place] [address] Feb, [facility] [address] [id number] [address] [place] [address] Feb, [facility] [address] [id number] [address] [place] [address] January, [facility] [address] [id number] [address] [place] [address] Dec, [facility] [address] [id number] [address] [place] [address] Dec, [facility] [address] [id number] [address] [place] [address] Nov, [facility] [address] [id number] [address] [place] [address] Nov, [facility] [address] [id number] [address] [place] [address] Nov, [facility] [address] [id number] [address] [place] [address] Nov, [facility] [address] [id number] [address] [place] [address] Nov, [facility] [address] [id number] [address] [place] [address] Nov, [facility] [address] [id number] [address] [place] [address] Nov, [facility] [address] [id number] [address] [place] [address] Nov, [facility] [address] [id number] [address] [place] [address], [place] [address] Nov, [facility] [address] [id number] [address] [place] [address], [place] [address] Oct, [facility] [address] [id number] [address] [place] [address], [place] [address] Oct, 2014 [facility] [address] [id number] [address] [place] [address], [place] [address] Oct, 2014 [facility] [address] [id number] [address] [place] [address], [place] [address] Oct, [facility] [address] [id number] [address] [place] [address], [place] [address] Oct, [facility] [address] [id number] [address] [place] [address], [place] [address] Oct, [facility] [address] [id number] [address] [place] [address], [place] [address] Oct, [facility] [address] [id number] [address] [place] [address], [place] [address] Oct, [facility] [address] [id number] [address] [place] [address], [place] [address] Sep, [facility] [address] [id number] [address] [place] [address], [place] [address] Sep, [facility] [address] [id number] [address] [place] [address], [place] [address] Sep, [facility] [address] [id number] [address] [place] [address] Sep, [facility] [address] [id number] [address] [place] [address], [place] [address] Sep, [facility] [address] [id number] [address] [place] [address] Sep, [facility] [address] [id number] [address] [place] [address] Sep, [facility] [address] [id number] [address] [place] [address], [place] [address] Sep, [facility] [address] [id number] [address] [place] [address], [place] [address] Sep, [facility] [address] [id number] [address] [place] [address], [place] [address] Sep, [facility] [address] [id number] [address] [place] [address], [place] [address] Aug, [facility] [address] [id number] [address] [place] [address], [place] [address] Aug, [facility] [address] [id number] [address] [place] [address], [place] [address] Aug, [facility] [address] [id number] [address] [place] [address], [place] [address] Aug, [facility] [address] [id number] [address] [place] [address], [place] [address] Aug, [facility] [address] [id number] [address] [place] [address], [place] [address] Aug, [facility] [address] [id number] [address] [place] [address], [place] [address] Aug, [facility] [address] [id number] [address] [place] [address], [place] [address] Aug, [facility] [address] [id number] [address] [place] [address], [place] [address] Jul, [facility] [address] [id number] [address] [place] [address], [place] [address] Jul, [facility] [address] [id number] [address] [place] [address], [place] [address] Jul, [facility] [address] [id number] [address] [place] [address], [place] [address] Jul, [facility] [address] [id number] [address] [place] [address], [place] [address] Jul, [facility] [address] [id number] [address] [place] [address], [place] [address] Jul, [facility] [address] [id number] [address] [place] [address], [place] [address] Jul, [facility] [address] [id number] [address] [place] [address], [place] [address] Jul, [facility] [address] [id number] [address] [place] [address], [place] [address] Jul, [facility] [address] [id number] [address] [place] [address], [place] [address] Jun, [facility] [address] [id number] [address] [place] [address], [place] [address] Jun, [facility] [address] [id number] [address] [place] [address], [place] [address] Jun, [facility] [address] [id number] [address] [place] [address], [place] [address] Jun, [facility] [address] [id number] [address] [place] [address], [place] [address] Jun, [facility] [address] [id number] [address] [place] [address], [place] [address] Jun, [facility] [address] [id number] [address] [place] [address], [place] [address] 25 May, 2013 [facility] [address] [id number] [address] [place] [address], [place] [address] 25 Sep, 2013 [facility] [address] [id number] [address] [place] [address], [place] [address] 16 Sep, 2013 [facility] [address] [id number] [address] [place] [address], [place] [address] 16 Sep, 2013 [facility] [address] [id number] [address] [place] [address], [place] [address] May, [facility] [address] [id number] [facility] [place] [address] May, [facility] [address] [id number] [facility] [place] [address] Apr, [facility] [address] [id number] [facility] [place] [address] Apr, [facility] [address] [id number] [address] [place] [address], [place] [address] Apr, [facility] [address] [id number] [address] [place] [address], [place] [address] Apr, [facility] [address] [id number] [address] [place] [address], [place] [address] Apr, [facility] [address] [id number] [address] [place] [address], [place] [address] Apr, [facility] [address] [id number] [address] [place] [address], [place] [address] Mar, [facility] [address] [id number] [address] [place] [address], [place] [address] Mar, [facility] [address] [id number] [address] [place] [address], [place] [address] Mar, [facility] [address] [id number] [address] [place] [address], [place] [address] Mar, [facility] [address] [id number] [address] [place] [address], [place] [address] Mar, [facility] [address] [id number] [address] [place] [address], [place] [address] Mar, [facility] [address] [id number] [address] [place] [address], [place] [address] Mar, [facility] [address] [id number] [address] [place] [address], [place] [address] Mar, [facility] [address] [id number] [address] [place] [address], [place] [address] Mar, 2013 [facility] [address] [id number] [facility] [place] [address] Mar, 2013 [facility] [address] [id number] [address] [place] [address], [place] [address] Mar, 2013 [facility] [address] [id number] [address] [place] [address], [place] [address] Mar, 2013 [facility] [address] [id number] [address] [place] [address], [place] [address] Mar, 2013 [facility] [address] [id number] [address] [place] [address], [place] [address] Mar, 2013 [facility] [address] [id number] [address] [place] [address], [place] [address] Mar, [facility] [address] [id number] [address] [place] [address], [place] [address] Mar, [facility] [address] [id number] [address] [place] [address], [place] [address] Feb, [facility] [address] [id number] [address] [place] [address], [place] [address] Feb, [facility] [address] [id number] [address] [place] [address], [place] [address] Feb, [facility] [address] [id number] [address] [place] [address], [place] [address] Feb, [facility] [address] [id number] [address] [place] [address], [place] [address] 24 Feb, 2014 [facility] [address] [id number] [address] [place] [address], [place] [address] Feb, [facility] [address] [id number] [address] [place] [address], [place] [address] Feb, [facility] [address] [id number] [address] [place] [address], [place] [address] 16 Feb, 2014 [facility] [address] [id number] [facility] [place] [address] Feb, [facility] [address] [id number] [facility] [place] [address] Feb, [facility] [address] [id number] [facility] [place] [address] Feb, [facility] [address] [id number] [address] [place] [address], [place] [address] Feb, [facility] [address] [id number] [address] [place] [address], [place] [address] Feb, [facility] [address] [id number] [address] [place] [address], [place] [address] January, [facility] [address] [id number] [address] [place] [address], [place] [address] January, [facility] [address] [id number] [address] [place] [address], [place] [address] January, [facility] [address] [id number] [address] [place] [address], [place] [address] January, [facility] [address] [id number] [address] [place] [address], [place] [address] January, [facility] [address] [id number] [address] [place] [address], [place] [address] January, [facility] [address] [id number] [address] [place] [address], [place] [address] January, [facility] [address] [id number] [address] [place] [address], [place] [address] January, [facility] [address] [id number] [address] [place] [address], [place] [address] January, [facility] [address] [id number] [address] [place] [address], [place] [address] January, [facility] [address] [id number] [address] [place] [address], [place] [address] January, [facility] [address] [id number] [address] [place] [address], [place] [address] January, [facility] [address] [id number] [address] [place] [address], [place] [address] January, [facility] [address] [id number] [address] [place] [address], [place] [address] January, [facility] [address] [id number] [address] [place] [address], [place] [address] Dec, [facility] [address] [id number] [address] [place] [address], [place] [address] Dec, [facility] [address] [id number] [address] [place] [address], [place] [address] Dec, [facility] [address] [id number] [address] [place] [address], [place] [address] Dec, [facility] [address] [id number] [address] [place] [address], [place] [address] Dec, [facility] [address] [id number] [address] [place] [address], [place] [address] Dec, [facility] [address] [id number] [address] [place] [address], [place] [address] Dec, [facility] [address] [id number] [address] [place] [address], [place] [address] Dec, [facility] [address] [id number] [address] [place] [address], [place] [address] Nov, [facility] [address] [id number] [address] [place] [address], [place] [address] Nov, [facility] [address] [id number] [address] [place] [address], [place] [address] Nov, [facility] [address] [id number] [address] [place] [address], [place] [address] Nov, [facility] [address] [id number] [address] [place] [address], [place] [address] Oct, [facility] [address] [id number] [address] [place] [address], [place] [address] Oct, [facility] [address] [id number] [address] [place] [address], [place] [address] Oct, [facility] [facility] [address] [id number] [address] [place] [address], [place] [address] Oct, [facility] [address] [id number] [address] [place] [address], [place] [address] Oct, [facility] [address] [id number] [address] [place] [address], [place] [address] Oct, [facility] [address] [id number] [address] [place] [address], [place] [address] Sep, [facility] [address] [id number] [address] [place] [address], [place] [address] Sep, [facility] [address] [id number] [address] [place] [address], [place] [address] Sep, [facility] [address] [id number] [address] [place] [address], [place] [address] Sep, [facility] [address] [id number] [address] [place] [address], [place] [address] Sep, [facility] [address] [id number] [address] [place] [address], [place] [address] Sep, [facility] [address] [id number] [address] [place] [address], [place] [address] Sep, [facility] [address] [id number] [address] [place] [address], [place] [address] Sep, [facility] [address] [id number] [address] [place] [address], [place] [address] Sep, [facility] [address] [id number] [address] [place] [address], [place] [address] Sep, [facility] [address] [id number] [address] [place] [address], [place] [address] Aug, [facility] [address] [id number] [address] [place] [address], [place] [address] Aug, [facility] [address] [id number] [address] [place] [address], [place] [address] Aug, [facility] [address] [id number] [address] [place] [address], [place] [address] Aug, [facility] [address] [id number] [address] [place] [address], [place] [address] Aug, [facility] [address] [id number] [address] [place] [address], [place] [address] Aug, [facility] [address] [id number] [address] [place] [address], [place] [address] Aug, [facility] [address] [id number] [address] [place] [address], [place] [address] Aug, [facility] [address] [id number] [address] [place] [address], [place] [address] Jul, [facility] [address] [id number] [address] [place] [address], [place] [address] Jul, [facility] [address] [id number] [address] [place] [id number] Jul, [facility] [address] [id number] [address] [place] [id number] Jul, [facility] [address] [id number] [address] [place] [address], [place] [address] Jul, [facility] [address] [id number] [address] [place] [address], [place] [address] Jul, [facility] [address] [id number] [address] [place] [id number] Jul, [facility] [address] [id number] [address] [place] [id number] Jul, [facility] [address] [id number] [address] [place] [address], [place] [address] Jul, [facility] [address] [id number] [address] [place] [id number] Jul, [facility] [address] [id number] [address] [place] [address], [place] [address] Jul, [facility] [address] [id number] [address] [place] [id number] Jul, [facility] [address] [id number] [address] [place] [address], [place] [address] Jun, [facility] [address] [id number] [address] [place] [id number] Jun, [facility] [address] [id number] [address] [place] [id number] Jun, [facility] [address] [id number] [address] [place] [address], [place] [address] Jun, [facility] [address] [id number] [address] [place] [id number] Jun, [facility] [address] [id number] [address] [place] [id number] Jun, [facility] [address] [id number] [address] [place] [id number] Jun, [facility] [address] [id number] [address] [place] [id number] Jun, [facility] [address] [id number] [address] [place] [id number] 25 May, 2013 [facility] [address] [id number] [address] [place] [id number] 18 May, 2013 [facility] [address] [id number] [address] [place] [address], [place] [address] 11 May, 2013 [facility] [address] [id number] [address] [place] [address], [place] [address] 10 May, 2013 [facility] [address] [id number] [address] [place] [address], [place] [address] May, [facility] [address] [id number] [address] [place] [address], [place] [address] May, [facility] [address] [id number] [address] [place] [address], [place] [address] Apr, [facility] [address] [id number] [address] [place] [address], [place] [address] Apr, [facility] [address] [id number] [address] [place] [address], [place] [address] Apr, [facility] [address] [id number] [address] [place] [address], [place] [address] Apr, [facility] [address] [id number] [address] [place] [address], [place] [address] Apr, [facility] [address] [id number] [address] [place] [address], [place] [address] Mar, [facility] [address] [id number] [address] [place] [address], [place] [address] Mar, [facility] [address] [id number] [address] [place] [address], [place] [address] Mar, [facility] [address] [id number] [address] [place] [address], [place] [address] Feb, [facility] [address] [id number] [address] [place] [address], [place] [address] Feb, [facility] [address] [id number] [address] [place] [address], [place] [address] Feb, [facility] [address] [id number] [address] [place] [address], [place] [address] January, [facility] [address] [id number] [address] [place] [address], [place] [address] January, [facility] [address] [facility] [id number] [address] [place] [id number] Dec, [facility] [address] [facility] [id number] [address] [place] [id number] Nov, [facility] [address] [facility] [id number] [address] [place] [id number] Nov, IMMUNIZATIONS No Known Immunizations SOCIAL HISTORY [...]
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
--- OUTSIDE RECORDS SUMMARY | 2019-12-04 11:59 | XMS REPORT ---
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 Name Role Phone SONAL Cantu Unavailable PROBLEMS Type Condition ICD9-CM Code [id number] Code Onset Dates Condition S tatus SNOMED Code Problem Bipolar disorder, current episode depressed, moderate F31.32 Active 454895355 Problem Anorexia nervosa F50.00 Active 568 47004 Problem Personality disorder, unspecified F60.9 Active 64545117 Problem Post-traumatic stress disorder, chronic F43.12 Active [id number] ALLERGIES No Information ENCOUNTERS Encounter Location Date Diagnosis [place] [id number] [place] [id number] [place] [address] Jul, Bipolar disorder, current ep isode depressed, moderate F31.32 and Anorexia nervosa F50.00 [facility] [address] [place] [id number] [address] [place] [address] Jul, [place] [address] [place] [id number] [place] [address] Jul, [place] [address] [place] [id number] [address] [place] [address] Jul, [facility] [address] [place] [id number] [address] [place] [address] Jun, Bipolar disorder, current ep isode depressed, moderate F31.32 ; Post-traumatic stress disorder, chronic F43.12 and Eating disorder, unspecified F50.9 [facility] [address] [facility] [id number] [address] [place] [address] May, [place] [address] [place] [id number] [place] [address] Apr, Bipolar disorder, current ep isode depressed, moderate F31.32 ; Post-traumatic stress disorder, chronic F43.12 and Eating disorder, unspecified F50.9 [place] [address] [id number] [address] [place], [place] [id number] 14 Feb, 2016 Bipolar disorder, current ep isode depressed, moderate F31.32 ; Post-traumatic stress disorder, chronic F43.12 and Personality disorder, unspecified F60.9 [place] [address] [id number] [address] [place] [address] Feb, Bipolar II disorder F31.81 [place] [address] [id number] [address] [place], [place] [address] Dec, Bipolar disorder, current ep isode depressed, moderate F31.32 ; Post-traumatic stress disorder, chronic F43.12 and Personality disorder, unspecified F60.9 [place] [address] [id number] [address] [place], [place] [address] Dec, Bipolar disorder, current ep isode depressed, moderate F31.32 ; Post-traumatic stress disorder, chronic F43.12 and Personality disorder, unspecified F60.9 [place] [address] [id number] [address] [place] [address] Dec, [place] [address] [id number] [address] [place] [id number] Dec, [place] [address] [id number] [address] [place], [place] [address] Dec, Bipolar disorder, current ep isode depressed, moderate F31.32 ; Post-traumatic stress disorder, chronic F43.12 and Personality disorder, unspecified F60.9 [place] [address] [id number] [address] [place] [address] Nov, [place] [address] [id number] [address] [place] [address] Nov, Bipolar disorder, current ep isode depressed, moderate F31.32 ; Post-traumatic stress disorder, chronic F43.12 and Personality disorder, unspecified F60.9 [place] [address] [facility] [id number] [address] [place] [address] Nov, Bipolar disorder, current ep isode depressed, moderate F31.32 ; Post-traumatic stress disorder, chronic F43.12 and Personality disorder, unspecified F60.9 [place] [address] [facility] [id number] [address] [place] [address] Oct, [place] [address] [facility] [id number] [address] [place] [address] Oct, Bipolar disorder, current ep isode depressed, moderate F31.32 ; Post-traumatic stress disorder, chronic F43.12 and Personality disorder, unspecified F60.9 [place] [address] [facility] [id number] [address] [place] [address] Oct, Bipolar disorder, current ep isode depressed, moderate F31.32 ; Post-traumatic stress disorder, chronic F43.12 and Personality disorder, unspecified F60.9 [place] [address] [facility] [id number] [address] [place] [address] Aug, Bipolar II disorder F31.81 a nd Post-traumatic stress disorder, unspecified F43.10 [place] [address] [facility] [id number] [address] [place] [address] Aug, Bipolar disorder, current ep isode depressed, moderate F31.32 ; Post-traumatic stress disorder, chronic F43.12 and Personality disorder, unspecified F60.9 [place] [address] [facility] [id number] [address] [place] [address] Jul, Bipolar disorder, unspecifie d 296.80 and Posttraumatic stress disorder 309.81 [place] [address] [facility] [id number] [address] [place] [address] Jul, Post-traumatic stress disord er, chronic F43.12 ; Personality disorder, unspecified F60.9 and Bipolar disorder, current episode depressed, moderate F31.32 [place] [address] [facility] [id number] [address] [place] [address] Jun, Bipolar disorder, unspecifie d 296.80 and Posttraumatic stress disorder 309.81 [facility] [address] [facility] [id number] [address] [place] [address] Jun, Bipolar disorder, unspecifie d 296.80 and Posttraumatic stress disorder 309.81 [facility] [address] [facility] [id number] [address] [place] [address] Jun, Posttraumatic stress disorde r 309.81 and Bipolar disorder, unspecified 296.80 [facility] [address] [facility] [id number] [address] [place] [address] May, Bipolar II disorder 296.89 a nd Post traumatic stress disorder 309.81 [facility] [address] [facility] [id number] [address] [place] [address] May, Bipolar II disorder 296.89 a nd Post traumatic stress disorder 309.81 [facility] [address] [place] [id number] [place] [address] May, [facility] [address] [facility] [id number] [address] [place] [address] May, [facility] [address] [place] [id number] [place] [address] May, [facility] [address] [place] [id number] [place] [address] May, [facility] [address] [place] [id number] [address] [place] [address] May, Bipolar II disorder 296.89 a nd Post traumatic stress disorder 309.81 [facility] [address] [facility] [id number] [address] [place] [address] May, Bipolar I disorder, most rec ent episode (or current) depressed, moderate 296.52 ; Posttraumatic stress disorder 309.81 and Anxiety state, unspecified 300.00 [facility] [address] [place] [id number] [place] [address] Apr, Bipolar II disorder 296.89 a nd Post traumatic stress disorder 309.81 [facility] [address] [id number] [address] [place] [address] Apr, [facility] [address] [id number] [address] [place] [address] Apr, Bipolar II disorder 296.89 a nd Post traumatic stress disorder 309.81 [facility] [address] [id number] [address] [place] [address] Apr, Bipolar II disorder 296.89 a nd Post traumatic stress disorder 309.81 [facility] [address] [id number] [address] [place] [address] Mar, Bipolar II disorder 296.89 a nd Post traumatic stress disorder 309.81 [facility] [address] [id number] [address] [place] [address] Mar, [facility] [address] [id number] [address] [place] [address] Mar, Bipolar II disorder 296.89 a nd Post traumatic stress disorder 309.81 [facility] [address] [id number] [address] [place] [address] Mar, Bipolar II disorder 296.89 a nd Post traumatic stress disorder 309.81 [facility] [address] [id number] [address] [place] [address] Mar, Bipolar II disorder 296.89 a nd Post traumatic stress disorder 309.81 [facility] [address] [id number] [address] [place] [address] Mar, [facility] [address] [id number] [address] [place] [address] Mar, Bipolar II disorder 296.89 a nd Post traumatic stress disorder 309.81 [facility] [address] [id number] [address] [place] [address] Feb, Bipolar II disorder 296.89 a nd Post traumatic stress disorder 309.81 [facility] [address] [id number] [address] [place] [address] 16 Feb, 2015 [facility] [address] [id number] [address] [place] [address] Feb, Bipolar disorder, unspecifie d 296.80 and Anxiety state, unspecified 300.00 [facility] [address] [id number] [address] [place] [address] Feb, [facility] [address] [id number] [address] [place] [address] Feb, [facility] [address] [id number] [address] [place] [address] January, [facility] [address] [id number] [address] [place] [address] Dec, [facility] [address] [id number] [address] [place] [address] Dec, [facility] [address] [id number] [address] [place] [address] Nov, [facility] [address] [id number] [address] [place] [address] Nov, [facility] [address] [id number] [address] [place] [address] Nov, [facility] [address] [id number] [address] [place] [address] Nov, [facility] [address] [id number] [address] [place] [address] Nov, [facility] [address] [id number] [address] [place] [address] Nov, [facility] [address] [id number] [address] [place] [address] Nov, [facility] [address] [id number] [address] [place] [address] Nov, [facility] [address] [id number] [address] [place] [address], [place] [address] Nov, [facility] [address] [id number] [address] [place] [address], [place] [address] Oct, [facility] [address] [id number] [address] [place] [address], [place] [address] Oct, 2014 [facility] [address] [id number] [address] [place] [address], [place] [address] Oct, 2014 [facility] [address] [id number] [address] [place] [address], [place] [address] Oct, [facility] [address] [id number] [address] [place] [address], [place] [address] Oct, [facility] [address] [id number] [address] [place] [address], [place] [address] Oct, [facility] [address] [id number] [address] [place] [address], [place] [address] Oct, [facility] [address] [id number] [address] [place] [address], [place] [address] Oct, [facility] [address] [id number] [address] [place] [address], [place] [address] Sep, [facility] [address] [id number] [address] [place] [address], [place] [address] Sep, [facility] [address] [id number] [address] [place] [address], [place] [address] Sep, [facility] [address] [id number] [address] [place] [address] Sep, [facility] [address] [id number] [address] [place] [address], [place] [address] Sep, [facility] [address] [id number] [address] [place] [address] Sep, [facility] [address] [id number] [address] [place] [phone] Sep, [facility] [address] [id number] [address] [place] [address], [place] [address] Sep, [facility] [address] [id number] [address] [place] [address], [place] [address] Sep, [facility] [address] [id number] [address] [place] [address], [place] [address] Sep, [facility] [address] [id number] [address] [place] [address], [place] [address] Aug, [facility] [address] [id number] [address] [place] [address], [place] [address] Aug, [facility] [address] [id number] [address] [place] [address], [place] [address] Aug, [facility] [address] [id number] [address] [place] [address], [place] [address] Aug, [facility] [address] [id number] [address] [place] [address], [place] [address] Aug, [facility] [address] [id number] [address] [place] [address], [place] [address] Aug, [facility] [address] [id number] [address] [place] [address], [place] [address] Aug, [facility] [address] [id number] [address] [place] [address], [place] [address] Aug, [facility] [address] [id number] [address] [place] [address], [place] [address] Jul, [facility] [address] [id number] [address] [place] [address], [place] [address] Jul, [facility] [address] [id number] [address] [place] [address], [place] [address] Jul, [facility] [address] [id number] [address] [place] [address], [place] [address] Jul, [facility] [address] [id number] [address] [place] [address], [place] [address] Jul, [facility] [address] [id number] [address] [place] [address], [place] [address] Jul, [facility] [address] [id number] [address] [place] [address], [place] [address] Jul, [facility] [address] [id number] [address] [place] [address], [place] [address] Jul, [facility] [address] [id number] [address] [place] [address], [place] [address] Jul, [facility] [address] [id number] [address] [place] [address], [place] [address] Jun, [facility] [address] [id number] [address] [place] [address], [place] [address] Jun, [facility] [address] [id number] [address] [place] [address], [place] [address] Jun, [facility] [address] [id number] [address] [place] [address], [place] [address] Jun, [facility] [address] [id number] [address] [place] [address], [place] [address] Jun, [facility] [address] [id number] [address] [place] [address], [place] [address] Jun, [facility] [address] [id number] [address] [place] [address], [place] [address] 25 May, 2013 [facility] [address] [id number] [address] [place] [address], [place] [address] 25 Sep, 2013 [facility] [address] [id number] [address] [place] [address], [place] [address] 16 Sep, 2013 [facility] [address] [id number] [address] [place] [address], [place] [address] 16 Sep, 2013 [facility] [address] [id number] [address] [place] [address], [place] [address] May, [facility] [address] [id number] [facility] [place] [address] May, [facility] [address] [id number] [facility] [place] [address] Apr, [facility] [address] [id number] [facility] [place] [address] Apr, [facility] [address] [id number] [address] [place] [address], [place] [address] Apr, [facility] [address] [id number] [address] [place] [address], [place] [address] Apr, [facility] [address] [id number] [address] [place] [address], [place] [address] Apr, [facility] [address] [id number] [address] [place] [address], [place] [address] Apr, [facility] [address] [id number] [address] [place] [address], [place] [address] Mar, [facility] [address] [id number] [address] [place] [address], [place] [address] Mar, [facility] [address] [id number] [address] [place] [address], [place] [address] Mar, [facility] [address] [id number] [address] [place] [address], [place] [address] Mar, [facility] [address] [id number] [address] [place] [address], [place] [address] Mar, [facility] [address] [id number] [address] [place] [address], [place] [address] Mar, [facility] [address] [id number] [address] [place] [address], [place] [address] Mar, [facility] [address] [id number] [address] [place] [address], [place] [address] Mar, [facility] [address] [id number] [address] [place] [address], [place] [address] Mar, 2013 [facility] [address] [id number] [facility] [place] [address] Mar, 2013 [facility] [address] [id number] [address] [place] [address], [place] [address] Mar, 2013 [facility] [address] [id number] [address] [place] [address], [place] [address] Mar, 2013 [facility] [address] [id number] [address] [place] [address], [place] [address] Mar, 2013 [facility] [address] [id number] [address] [place] [address], [place] [address] Mar, 2013 [facility] [address] [id number] [address] [place] [address], [place] [address] Mar, [facility] [address] [id number] [address] [place] [address], [place] [address] Mar, [facility] [address] [id number] [address] [place] [address], [place] [address] Feb, [facility] [address] [id number] [address] [place] [address], [place] [address] Feb, [facility] [address] [id number] [address] [place] [address], [place] [address] Feb, [facility] [address] [id number] [address] [place] [address], [place] [address] Feb, [facility] [address] [id number] [address] [place] [address], [place] [address] 24 Feb, 2014 [facility] [address] [id number] [address] [place] [address], [place] [address] Feb, [facility] [address] [id number] [address] [place] [address], [place] [address] Feb, [facility] [address] [id number] [address] [place] [address], [place] [address] 16 Feb, 2014 [facility] [address] [id number] [facility] [place] [address] Feb, [facility] [address] [id number] [facility] [place] [address] Feb, [facility] [address] [id number] [facility] [place] [address] Feb, [facility] [address] [id number] [address] [place] [address], [place] [address] Feb, [facility] [address] [id number] [address] [place] [address], [place] [address] Feb, [facility] [address] [id number] [address] [place] [address], [place] [address] January, [facility] [address] [id number] [address] [place] [address], [place] [address] January, [facility] [address] [id number] [address] [place] [address], [place] [address] January, [facility] [address] [id number] [address] [place] [address], [place] [address] January, [facility] [address] [id number] [address] [place] [address], [place] [address] January, [facility] [address] [id number] [address] [place] [address], [place] [address] January, [facility] [address] [id number] [address] [place] [address], [place] [address] January, [facility] [address] [id number] [address] [place] [address], [place] [address] January, [facility] [address] [id number] [address] [place] [address], [place] [address] January, [facility] [address] [id number] [address] [place] [address], [place] [address] January, [facility] [address] [id number] [address] [place] [address], [place] [address] January, [facility] [address] [id number] [address] [place] [address], [place] [address] January, [facility] [address] [id number] [address] [place] [address], [place] [address] January, [facility] [address] [id number] [address] [place] [address], [place] [address] January, [facility] [address] [id number] [address] [place] [address], [place] [address] Dec, [facility] [address] [id number] [address] [place] [address], [place] [address] Dec, [facility] [address] [id number] [address] [place] [address], [place] [address] Dec, [facility] [address] [id number] [address] [place] [address], [place] [address] Dec, [facility] [address] [id number] [address] [place] [address], [place] [address] Dec, [facility] [address] [id number] [address] [place] [address], [place] [address] Dec, [facility] [address] [id number] [address] [place] [address], [place] [address] Dec, [facility] [address] [id number] [address] [place] [address], [place] [address] Dec, [facility] [address] [id number] [address] [place] [address], [place] [address] Nov, [facility] [address] [id number] [address] [place] [address], [place] [address] Nov, [facility] [address] [id number] [address] [place] [address], [place] [address] Nov, [facility] [address] [id number] [address] [place] [address], [place] [address] Nov, [facility] [address] [id number] [address] [place] [address], [place] [address] Oct, [facility] [address] [id number] [address] [place] [address], [place] [address] Oct, [facility] [address] [id number] [address] [place] [address], [place] [address] Oct, [facility] [address] [id number] [address] [place] [address], [place] [address] Oct, [facility] [address] [id number] [address] [place] [address], [place] [address] Oct, [facility] [address] [id number] [address] [place] [address], [place] [address] Oct, [facility] [address] [id number] [address] [place] [address], [place] [address] Sep, [facility] [address] [id number] [address] [place] [address], [place] [address] Sep, [facility] [address] [id number] [address] [place] [address], [place] [address] Sep, [facility] [address] [id number] [address] [place] [address], [place] [address] Sep, [facility] [address] [id number] [address] [place] [address], [place] [address] Sep, [facility] [address] [id number] [address] [place] [address], [place] [address] Sep, [facility] [address] [id number] [address] [place] [address], [place] [address] Sep, [facility] [address] [id number] [address] [place] [address], [place] [address] Sep, [facility] [address] [id number] [address] [place] [address], [place] [address] Sep, [facility] [address] [id number] [address] [place] [address], [place] [address] Sep, [facility] [address] [id number] [address] [place] [address], [place] [address] Aug, [facility] [address] [id number] [address] [place] [address], [place] [address] Aug, [facility] [address] [id number] [address] [place] [address], [place] [address] Aug, [facility] [address] [id number] [address] [place] [address], [place] [address] Aug, [facility] [address] [id number] [address] [place] [address], [place] [address] Aug, [facility] [address] [id number] [address] [place] [address], [place] [address] Aug, [facility] [address] [id number] [address] [place] [address], [place] [address] Aug, [facility] [address] [id number] [address] [place] [address], [place] [address] Aug, [facility] [address] [id number] [address] [place] [address], [place] [address] Jul, [facility] [address] [id number] [address] [place] [address], [place] [address] Jul, [facility] [address] [id number] [address] [place] [address] Jul, [facility] [address] [id number] [address] [place] [address] Jul, [facility] [address] [id number] [address] [place] [address], [place] [address] Jul, [facility] [address] [id number] [address] [place] [address], [place] [address] Jul, [facility] [address] [id number] [address] [place] [address] Jul, [facility] [address] [id number] [address] [place] [address] Jul, [facility] [address] [id number] [address] [place] [address], [place] [address] Jul, [facility] [address] [id number] [address] [place] [address] Jul, [facility] [address] [id number] [address] [place] [address], [place] [address] Jul, [facility] [address] [id number] [address] [place] [address] Jul, [facility] [address] [id number] [address] [place] [address], [place] [address] Jun, [facility] [address] [id number] [address] [place] [address] Jun, [facility] [address] [id number] [address] [place] [address] Jun, [facility] [address] [id number] [address] [place] [address], [place] [address] Jun, [facility] [address] [id number] [address] [place] [address] Jun, [facility] [address] [id number] [address] [place] [address] Jun, [facility] [address] [id number] [address] [place] [address] Jun, [facility] [address] [id number] [address] [place] [address] Jun, [facility] [address] [id number] [address] [place] [id number] 25 May, 2013 [facility] [address] [id number] [address] [place] [id number] 18 May, 2013 [facility] [address] [id number] [address] [place] [address], [place] [address] 11 May, 2013 [facility] [address] [id number] [address] [place] [address], [place] [address] 10 May, 2013 [facility] [address] [id number] [address] [place] [address], [place] [address] May, [facility] [address] [id number] [address] [place] [address], [place] [address] May, [facility] [address] [id number] [address] [place] [address], [place] [address] Apr, [facility] [address] [id number] [address] [place] [address], [place] [address] Apr, [facility] [address] [id number] [address] [place] [address], [place] [address] Apr, [facility] [address] [id number] [address] [place] [address], [place] [address] Apr, [facility] [address] [id number] [address] [place] [address], [place] [address] Apr, [facility] [address] [id number] [address] [place] [address], [place] [address] Mar, [facility] [address] [id number] [address] [place] [address], [place] [address] Mar, [facility] [address] [id number] [address] [place] [address], [place] [address] Mar, [facility] [address] [id number] [address] [place] [address], [place] [address] Feb, [facility] [address] [id number] [address] [place] [address], [place] [address] Feb, [facility] [address] [id number] [address] [place] [address], [place] [address] Feb, [facility] [address] [id number] [address] [place] [address], [place] [address] January, [facility] [address] [id number] [address] [place] [address], [place] [address] January, [facility] [address] [facility] [id number] [address] [place] [id number] Dec, [facility] [address] [facility] [id number] [address] [place] [id number] Nov, [facility] [address] [facility] [id number] [address] [place] [id number] Nov, IMMUNIZATIONS No Known Immunizations SOCIAL HISTORY Never Assessed REASON FOR VISIT PLAN OF CARE VITAL SIGNS Height 69 in 2014-12-06 Weight 129.12 lbs 2014-12-06 Temperature 98.3 degrees Fahrenheit 2014-12-06 Heart Rate 101 bpm 2014-12-06 Respiratory Rate 24 2014-12-06 Blood pressure systolic 108 mmHg 2014-12-06 Blood pressure diastolic 82 mmHg 2014-12-06 MEDICATIONS No Known Medications RESULTS No Results [...]
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
--- OUTSIDE RECORDS SUMMARY | 2019-12-04 12:00 | XMS REPORT ---
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 Name Role Phone Migration, Doctor Unavailable Unavailable PROBLEMS Type Condition ICD9-CM Code VNE23-XM Code Onset Dates Condition S tatus SNOMED Code Problem Bipolar disorder, current episode depressed, moderate F31.32 Active 597704086 Problem Anorexia nervosa F50.00 Active 568 33495 Problem Personality disorder, unspecified F60.9 Active [id number] Problem Post-traumatic stress disorder, chronic F43.12 Active 13134123 ALLERGIES No Information ENCOUNTERS Encounter Location Date Diagnosis [place] [address] [address] Jul, Bipolar disorder, current ep isode depressed, moderate F31.32 and Anorexia nervosa F50.00 [place] [address] [place] [id number] [address] [place] [id number] Jul, [place] [address] [place] [id number] [address] [place] [address] Jul, [facility] [address] [place] [id number] [address] [place] [address] Jul, [facility] [address] [place] [id number] [address] [place] [address] Jun, Bipolar disorder, current ep isode depressed, moderate F31.32 ; Post-traumatic stress disorder, chronic F43.12 and Eating disorder, unspecified F50.9 [facility] [address] [facility] [id number] [address] [place] [address] May, [facility] [address] [place] [id number] [address] [place] [address] Apr, Bipolar disorder, current ep isode depressed, moderate F31.32 ; Post-traumatic stress disorder, chronic F43.12 and Eating disorder, unspecified F50.9 [facility] [address] [id number] [address] [place] [id number] 14 Feb, 2016 Bipolar disorder, current ep isode depressed, moderate F31.32 ; Post-traumatic stress disorder, chronic F43.12 and Personality disorder, unspecified F60.9 [facility] [address] [id number] [address] [place] [address] 14 Feb, 2016 Bipolar II disorder F31.81 [facility] [address] [id number] [address] [place] [id number] Dec, Bipolar disorder, current ep isode depressed, moderate F31.32 ; Post-traumatic stress disorder, chronic F43.12 and Personality disorder, unspecified F60.9 [place] [address] [id number] [address] [place] [id number] Dec, Bipolar disorder, current ep isode depressed, moderate F31.32 ; Post-traumatic stress disorder, chronic F43.12 and Personality disorder, unspecified F60.9 [place] [address] [id number] [address] [place] [id number] Dec, [facility] [address] [id number] [address] [place] [address] Dec, [place] [address] [facility] [id number] [address] [place] [address] Dec, Bipolar disorder, current ep isode depressed, moderate F31.32 ; Post-traumatic stress disorder, chronic F43.12 and Personality disorder, unspecified F60.9 [place] [address] [id number] [address] [place] [address] Nov, [facility] [address] [id number] [address] [place] [id number] Nov, Bipolar disorder, current ep isode depressed, moderate F31.32 ; Post-traumatic stress disorder, chronic F43.12 and Personality disorder, unspecified F60.9 [facility] [address] [id number] [address] [place] [address] Nov, Bipolar disorder, current ep isode depressed, moderate F31.32 ; Post-traumatic stress disorder, chronic F43.12 and Personality disorder, unspecified F60.9 [place] [address] [id number] [address] [place] [address] Oct, [facility] [address] [id number] [address] [place], [place] [address] Oct, Bipolar disorder, current ep isode depressed, moderate F31.32 ; Post-traumatic stress disorder, chronic F43.12 and Personality disorder, unspecified F60.9 [place] [address] [facility] [id number] [address] [place] [address] Oct, Bipolar disorder, current ep isode depressed, moderate F31.32 ; Post-traumatic stress disorder, chronic F43.12 and Personality disorder, unspecified F60.9 [place] [address] [facility] [id number] [address] [place] [address] Aug, Bipolar II disorder F31.81 a nd Post-traumatic stress disorder, unspecified F43.10 [place] [address] [facility] [id number] [address] [place] [address] Aug, Bipolar disorder, current ep isode depressed, moderate F31.32 ; Post-traumatic stress disorder, chronic F43.12 and Personality disorder, unspecified F60.9 [place] [address] [facility] [id number] [address] [place] [address] Jul, Bipolar disorder, unspecifie d 296.80 and Posttraumatic stress disorder 309.81 [facility] [address] [id number] [address] [place] [address] Jul, Post-traumatic stress disord er, chronic F43.12 ; Personality disorder, unspecified F60.9 and Bipolar disorder, current episode depressed, moderate F31.32 [facility] [address] [id number] [address] [place] [address] Jun, Bipolar disorder, unspecifie d 296.80 and Posttraumatic stress disorder 309.81 [facility] [address] [id number] [address] [place] [address] Jun, Bipolar disorder, unspecifie d 296.80 and Posttraumatic stress disorder 309.81 [facility] [address] [id number] [address] [place] [address] Jun, Posttraumatic stress disorde r 309.81 and Bipolar disorder, unspecified 296.80 [facility] [address] [id number] [address] [place] [address] May, Bipolar II disorder 296.89 a nd Post traumatic stress disorder 309.81 [facility] [address] [id number] [address] [place] [address] May, Bipolar II disorder 296.89 a nd Post traumatic stress disorder 309.81 [facility] [address] [facility] [id number] [address] [place] [address] May, [facility] [address] [id number] [address] [place] [address] May, [facility] [address] [facility] [id number] [address] [place] [address] May, [facility] [address] [facility] [id number] [address] [place] [address] May, [facility] [address] [facility] [id number] [address] [place] [address] May, Bipolar II disorder 296.89 a nd Post traumatic stress disorder 309.81 [facility] [address] [id number] [address] [place] [address] May, Bipolar I disorder, most rec ent episode (or current) depressed, moderate 296.52 ; Posttraumatic stress disorder 309.81 and Anxiety state, unspecified 300.00 [facility] [address] [id number] [address] [place] [address] Apr, Bipolar II disorder 296.89 a nd Post traumatic stress disorder 309.81 [facility] [address] [facility] [id number] [address] [place] [address] Apr, [facility] [address] [id number] [address] [place] [address] Apr, Bipolar II disorder 296.89 a nd Post traumatic stress disorder 309.81 [facility] [address] [id number] [address] [place] [address] Apr, Bipolar II disorder 296.89 a nd Post traumatic stress disorder 309.81 [facility] [address] [id number] [address] [place] [address] Mar, Bipolar II disorder 296.89 a nd Post traumatic stress disorder 309.81 [facility] [address] [id number] [address] [place] [address] Mar, [facility] [address] [facility] [id number] [address] [place] [address] Mar, Bipolar II disorder 296.89 a nd Post traumatic stress disorder 309.81 [facility] [address] [id number] [address] [place] [address] Mar, Bipolar II disorder 296.89 a nd Post traumatic stress disorder 309.81 [facility] [address] [id number] [address] [place] [address] Mar, Bipolar II disorder 296.89 a nd Post traumatic stress disorder 309.81 [facility] [address] [id number] [address] [place] [address] Mar, [facility] [address] [id number] [address] [place] [address] Mar, Bipolar II disorder 296.89 a nd Post traumatic stress disorder 309.81 [facility] [address] [id number] [address] [place] [address] Feb, Bipolar II disorder 296.89 a nd Post traumatic stress disorder 309.81 [facility] [address] [id number] [address] [place] [address] Feb, [facility] [address] [id number] [address] [place] [address] Feb, Bipolar disorder, unspecifie d 296.80 and Anxiety state, unspecified 300.00 [facility] [address] [id number] [address] [place] [id number] Feb, [facility] [address] [id number] [address] [place] [phone] Feb, [facility] [address] [id number] [address] [place] [phone] January, [facility] [address] [id number] [address] [place] [address] Dec, [facility] [address] [id number] [address] [place] [address] Dec, [facility] [address] [id number] [address] [place] [phone] Nov, [facility] [address] [id number] [address] [place] [phone] Nov, [facility] [address] [id number] [address] [place] [id number] Nov, [facility] [address] [id number] [address] [place] [phone] Nov, [facility] [address] [id number] [address] [place] [address] Nov, [facility] [address] [id number] [address] [place] [phone] Nov, [facility] [address] [id number] [address] [place] [address] Nov, [facility] [address] [id number] [address] [place] [id number] Nov, [facility] [address] [id number] [address] [place] [id number] Nov, [facility] [address] [id number] [address] [place] [address], [place] [address] Oct, [facility] [address] [id number] [address] [place] [address], [place] [address] Oct, [facility] [address] [id number] [address] [place] [address], [place] [address] Oct, 2014 [facility] [address] [id number] [address] [place] [address], [place] [address] Oct, 2014 [facility] [address] [id number] [address] [place] [address], [place] [address] Oct, [facility] [address] [id number] [address] [place] [address], [place] [address] Oct, [facility] [address] [id number] [address] [place] [address], [place] [address] Oct, [facility] [address] [id number] [address] [place] [address], [place] [address] Oct, [facility] [address] [id number] [address] [place] [address], [place] [address] Sep, [facility] [address] [id number] [address] [place] [address], [place] [address] Sep, [facility] [address] [id number] [address] [place] [address], [place] [address] Sep, [facility] [address] [id number] [address] [place] [address], [place] [address] Sep, [facility] [address] [id number] [address] [place] [address], [place] [address] Sep, [facility] [address] [id number] [address] [place] [address], [place] [address] Sep, [facility] [address] [id number] [address] [place] [address], [place] [address] Sep, [facility] [address] [id number] [address] [place] [address], [place] [address] Sep, [facility] [address] [id number] [address] [place] [address], [place] [address] Sep, [facility] [address] [id number] [address] [place] [address], [place] [address] Sep, [facility] [address] [id number] [address] [place] [address], [place] [address] Aug, [facility] [address] [id number] [address] [place] [address], [place] [address] Aug, [facility] [address] [id number] [address] [place] [address], [place] [address] Aug, [facility] [address] [id number] [address] [place] [address], [place] [address] Aug, [facility] [address] [id number] [address] [place] [address], [place] [address] Aug, [facility] [address] [id number] [address] [place] [address], [place] [address] Aug, [facility] [address] [id number] [address] [place] [address], [place] [address] Aug, [facility] [address] [id number] [address] [place] [address], [place] [address] Aug, [facility] [address] [id number] [address] [place] [address], [place] [address] Jul, [facility] [address] [id number] [address] [place] [address], [place] [address] Jul, [facility] [address] [id number] [address] [place] [address], [place] [address] Jul, [facility] [address] [id number] [address] [place] [address], [place] [address] Jul, [facility] [address] [id number] [address] [place] [address], [place] [address] Jul, [facility] [address] [id number] [address] [place] [address], [place] [address] Jul, [facility] [address] [id number] [address] [place] [address], [place] [address] Jul, [facility] [address] [id number] [address] [place] [address], [place] [address] Jul, [facility] [address] [id number] [address] [place] [address], [place] [address] Jul, [facility] [address] [id number] [address] [place] [address], [place] [address] Jun, [facility] [address] [id number] [address] [place] [address], [place] [address] Jun, [facility] [address] [id number] [address] [place] [address], [place] [address] Jun, [facility] [address] [id number] [address] [place] [address], [place] [address] Jun, [facility] [address] [id number] [address] [place] [address], [place] [address] Jun, [facility] [address] [id number] [address] [place] [address], [place] [address] Jun, [facility] [address] [id number] [address] [place] [address], [place] [address] 25 May, 2013 [facility] [address] [id number] [address] [place] [address], [place] [address] 25 Sep, 2013 [facility] [address] [id number] [address] [place] [address], [place] [address] 16 Sep, 2013 [facility] [address] [id number] [address] [place] [address], [place] [address] 16 Sep, 2013 [facility] [address] [id number] [address] [place] [address], [place] [address] 05 Sep, 2013 [facility] [address] [id number] [address] [place] [address], [place] [address] May, [facility] [address] [id number] [address] [place] [address], [place] [address] Apr, [facility] [address] [id number] [address] [place] [address], [place] [address] Apr, [facility] [address] [id number] [address] [place] [address], [place] [address] Apr, [facility] [address] [id number] [address] [place] [address], [place] [address] Apr, [facility] [address] [id number] [address] [place] [address], [place] [address] Apr, [facility] [address] [id number] [address] [place] [address], [place] [address] Apr, [facility] [address] [id number] [address] [place] [address], [place] [address] Mar, [facility] [address] [id number] [address] [place] [address], [place] [address] Mar, [facility] [address] [id number] [address] [place] [address], [place] [address] Mar, [facility] [address] [id number] [address] [place] [address], [place] [address] Mar, [facility] [address] [id number] [address] [place] [address], [place] [address] Mar, [facility] [address] [id number] [address] [place] [address], [place] [address] Mar, [facility] [address] [id number] [address] [place] [address], [place] [address] Mar, [facility] [address] [id number] [address] [place] [address], [place] [address] Mar, [facility] [address] [id number] [address] [place] [address], [place] [address] Mar, [facility] [address] [id number] [address] [place] [address], [place] [address] Mar, 2013 [facility] [address] [id number] [address] [place] [address], [place] [address] Mar, 2013 [facility] [address] [id number] [address] [place] [address], [place] [address] Mar, 2013 [facility] [address] [id number] [address] [place] [address], [place] [address] Mar, 2013 [facility] [address] [id number] [address] [place] [address], [place] [address] Mar, 2013 [facility] [address] [id number] [address] [place] [address], [place] [address] Mar, 2013 [facility] [address] [id number] [address] [place] [address], [place] [address] Mar, 2013 [facility] [address] [id number] [address] [place] [address], [place] [address] Feb, [facility] [address] [id number] [address] [place] [address], [place] [address] 30 Feb, 2014 [facility] [address] [id number] [address] [place] [address], [place] [address] Feb, [facility] [address] [id number] [address] [place] [address], [place] [address] Feb, [facility] [address] [id number] [address] [place] [address], [place] [address] Feb, [facility] [address] [id number] [address] [place] [address], [place] [address] 23 Feb, 2014 [facility] [address] [id number] [address] [place] [address], [place] [address] 20 Feb, 2014 [facility] [address] [id number] [address] [place] [address], [place] [address] 16 Feb, 2014 [facility] [address] [id number] [address] [place] [address], [place] [address] Feb, [facility] [address] [id number] [facility] [place] [address] Feb, [facility] [address] [id number] [facility] [place] [address] Feb, [facility] [address] [id number] [facility] [place] [address] Feb, [facility] [address] [id number] [address] [place] [address], [place] [address] Feb, [facility] [address] [id number] [facility] [place] [address] January, [facility] [address] [id number] [address] [place] [address], [place] [id number] January, [facility] [address] [id number] [address] [place] [address], [place] [id number] January, [facility] [address] [id number] [address] [place] [address], [place] [address] January, [facility] [address] [id number] [address] [place] [address], [place] [address] January, [facility] [address] [id number] [address] [place] [address], [place] [id number] January, [facility] [address] [id number] [address] [place] [address], [place] [id number] January, [facility] [address] [id number] [address] [place] [address], [place] [address] January, [facility] [address] [id number] [address] [place] [address], [place] [address] January, [facility] [address] [id number] [address] [place] [address], [place] [id number] January, [facility] [address] [id number] [address] [place] [address], [place] [id number] January, [facility] [address] [id number] [address] [place] [address], [place] [address] January, [facility] [address] [id number] [address] [place] [address] January, [facility] [address] [id number] [address] [place] [address], [place] [address] January, [facility] [address] [id number] [address] [place] [address], [place] [address] Dec, [facility] [address] [id number] [address] [place] [address], [place] [id number] Dec, [facility] [address] [id number] [address] [place] [address], [place] [id number] Dec, [facility] [address] [id number] [address] [place] [address], [place] [id number] Dec, [facility] [address] [id number] [address] [place] [address], [place] [id number] Dec, [facility] [address] [id number] [address] [place] [address], [place] [id number] Dec, [facility] [address] [id number] [address] [place] [address], [place] [address] Dec, [facility] [address] [id number] [address] [place] [address], [place] [address] Dec, [facility] [address] [id number] [address] [place] [address], [place] [address] Nov, [facility] [address] [id number] [address] [place] [address], [place] [id number] Nov, [facility] [address] [id number] [address] [place] [address], [place] [address] Nov, [facility] [address] [id number] [address] [place] [address], [place] [address] Nov, [facility] [address] [id number] [address] [place] [address], [place] [address] Oct, [facility] [address] [id number] [address] [place] [address], [place] [address] Oct, [facility] [address] [id number] [address] [place] [address], [place] [id number] Oct, [facility] [address] [id number] [address] [place] [address], [place] [id number] Oct, [facility] [address] [id number] [address] [place] [address], [place] [id number] Oct, [facility] [address] [id number] [address] [place] [address], [place] [id number] Oct, [facility] [address] [id number] [address] [place] [address], [place] [id number] Sep, [facility] [address] [id number] [address] [place] [address], [place] [id number] Sep, [facility] [address] [id number] [address] [place] [address], [place] [id number] Sep, [facility] [address] [id number] [address] [place] [address], [place] [id number] Sep, [facility] [address] [id number] [address] [place] [address], [place] [id number] Sep, [facility] [address] [id number] [address] [place] [address], [place] [id number] Sep, [facility] [address] [id number] [address] [place] [address], [place] [id number] Sep, [facility] [address] [id number] [address] [place] [address], [place] [id number] Sep, [facility] [address] [id number] [address] [place] [address], [place] [id number] Sep, [facility] [address] [id number] [address] [place] [address], [place] [id number] Sep, [facility] [address] [id number] [address] [place] [address], [place] [id number] Aug, [facility] [address] [id number] [address] [place] [address], [place] [id number] Aug, [facility] [address] [id number] [address] [place] [address], [place] [id number] Aug, [facility] [address] [id number] [address] [place] [address], [place] [id number] Aug, [facility] [address] [id number] [address] [place] [address], [place] [id number] Aug, [facility] [address] [id number] [address] [place] [address], [place] [id number] Aug, [facility] [address] [id number] [address] [place] [address], [place] [id number] Aug, [facility] [address] [id number] [address] [place] [address], [place] [id number] Aug, [facility] [address] [id number] [address] [place] [address], [place] [id number] Jul, [facility] [address] [id number] [address] [place] [address], [place] [id number] Jul, [facility] [address] [id number] [address] [place] [id number] Jul, [facility] [address] [id number] [address] [place] [id number] Jul, [facility] [address] [id number] [address] [place] [id number] Jul, [facility] [address] [id number] [address] [place] [id number] Jul, [facility] [address] [id number] [address] [place] [id number] Jul, [facility] [address] [id number] [address] [place] [id number] Jul, [facility] [address] [id number] [address] [place] [id number] Jul, [facility] [address] [id number] [address] [place] [address], [place] [id number] Jul, [facility] [address] [id number] [address] [place] [id number] Jul, [facility] [address] [id number] [address] [place] [address], [place] [id number] Jul, [facility] [address] [id number] [address] [place] [address], [place] [id number] 30 Jun, 2013 [facility] [address] [id number] [address] [place] [address], [place] [id number] 30 Jun, 2013 [facility] [address] [id number] [address] [place] [address], [place] [id number] 29 Jun, 2013 [facility] [address] [id number] [address] [place] [id number] Jun, [facility] [address] [id number] [address] [place] [address], [place] [id number] Jun, [facility] [address] [id number] [address] [place] [address], [place] [id number] Jun, [facility] [address] [id number] [address] [place] [id number] 16 Jun, 2013 [facility] [address] [id number] [address] [place] [id number] 02 Jun, 2013 [facility] [address] [id number] [address] [place] [id number] 25 May, 2012 [facility] [address] [id number] [address] [place] [address], [place] [id number] 18 Sep, 2012 [facility] [address] [id number] [address] [place] [id number] 11 May, 2012 [facility] [address] [id number] [address] [place] [id number] 10 May, 2012 [facility] [address] [id number] [facility] [place] [id number] May, [facility] [address] [id number] [address] [place] [address], [place] [id number] May, [facility] [address] [id number] [address] [place] [address], [place] [id number] Apr, [facility] [address] [id number] [address] [place] [address], [place] [id number] Apr, [facility] [address] [id number] [address] [place] [address], [place] [id number] Apr, [facility] [address] [id number] [address] [place] [address], [place] [id number] Apr, [facility] [address] [id number] [address] [place] [address], [place] [id number] Apr, [facility] [address] [id number] [address] [place] [address], [place] [id number] Mar, [facility] [address] [id number] [address] [place] [address], [place] [id number] Mar, [facility] [address] [id number] [address] [place] [address], [place] [id number] Mar, [facility] [address] [id number] [address] [place] [address], [place] [id number] Feb, [facility] [address] [id number] [address] [place] [address], [place] [id number] Feb, [facility] [address] [id number] [address] [place] [address], [place] [id number] Feb, [facility] [address] [id number] [address] [place] [address], [place] [id number] January, [facility] [address] [id number] [address] [place] [address], [place] [id number] January, [facility] [address] [id number] [address] [place] [address] [address] Dec, [facility] [address] [facility] [id number] [address] [place] [id number] Nov, [facility] [address] [facility] [id number] [address] [place] [id number] Nov, IMMUNIZATIONS No Known Immunizations SOCIAL HISTORY Never Assessed REASON FOR VISIT EMR-[facility] [place] PLAN OF CARE VITAL SIGNS MEDICATIONS No [...]
--- OUTSIDE RECORDS SUMMARY | 2019-12-04 12:00 | XMS REPORT ---
Author Author Shireen Moyer Doctor Organization [facility] Address Unknown Phone Unavailable Care Team Providers Care Novelty Twister Tender Name Role Phone Migration, Doctor Unavailable Unavailable PROBLEMS Type Condition ICD9-CM Code [id number] Code Onset Dates Condition S tatus SNOMED Code Problem Bipolar disorder, current episode depressed, moderate F31.32 Active 054996766 Problem Anorexia nervosa F50.00 Active 568 81414 Problem Personality disorder, unspecified F60.9 Active 21215095 Problem Post-traumatic stress disorder, chronic F43.12 Active 44940756 ALLERGIES No Information ENCOUNTERS Encounter Location Date Diagnosis [place] [address] [address] Jul, Bipolar disorder, current ep isode depressed, moderate F31.32 and Anorexia nervosa F50.00 [place] [address] [place] [id number] [address] [place] [address] Jul, [facility] [address] [place] [id number] [address] [place] [address] Jul, [facility] [address] [place] [id number] [address] [place] [address] Jul, [facility] [address] [place] [id number] [address] [place] [address] Jun, Bipolar disorder, current ep isode depressed, moderate F31.32 ; Post-traumatic stress disorder, chronic F43.12 and Eating disorder, unspecified F50.9 [facility] [address] [facility] [id number] [address] [place] [address] May, [facility] [address] [place] [id number] [address] [place] [address] Apr, Bipolar disorder, current ep isode depressed, moderate F31.32 ; Post-traumatic stress disorder, chronic F43.12 and Eating disorder, unspecified F50.9 [facility] [address] [id number] [address] [place] [address] 14 Feb, 2016 Bipolar disorder, current ep isode depressed, moderate F31.32 ; Post-traumatic stress disorder, chronic F43.12 and Personality disorder, unspecified F60.9 [facility] [address] [id number] [address] [place] [address] 14 Feb, 2016 Bipolar II disorder F31.81 [facility] [address] [id number] [address] [place] [address] Dec, Bipolar disorder, current ep isode depressed, moderate F31.32 ; Post-traumatic stress disorder, chronic F43.12 and Personality disorder, unspecified F60.9 [place] [address] [id number] [address] [place] [address] Dec, Bipolar disorder, current ep isode depressed, moderate F31.32 ; Post-traumatic stress disorder, chronic F43.12 and Personality disorder, unspecified F60.9 [place] [address] [id number] [address] [place] [address] Dec, [facility] [address] [id number] [address] [place] [address] Dec, [place] [address] [facility] [id number] [address] [place] [address] Dec, Bipolar disorder, current ep isode depressed, moderate F31.32 ; Post-traumatic stress disorder, chronic F43.12 and Personality disorder, unspecified F60.9 [place] [address] [id number] [address] [place] [address] Nov, [facility] [address] [id number] [address] [place] [address] Nov, Bipolar disorder, current ep isode depressed, moderate F31.32 ; Post-traumatic stress disorder, chronic F43.12 and Personality disorder, unspecified F60.9 [facility] [address] [id number] [address] [place] [address] Nov, Bipolar disorder, current ep isode depressed, moderate F31.32 ; Post-traumatic stress disorder, chronic F43.12 and Personality disorder, unspecified F60.9 [place] [address] [id number] [address] [place] [address] Oct, [facility] [address] [id number] [address] [place], [place] [address] Oct, Bipolar disorder, current ep isode depressed, moderate F31.32 ; Post-traumatic stress disorder, chronic F43.12 and Personality disorder, unspecified F60.9 [place] [address] [facility] [id number] [address] [place] [address] Oct, Bipolar disorder, current ep isode depressed, moderate F31.32 ; Post-traumatic stress disorder, chronic F43.12 and Personality disorder, unspecified F60.9 [place] [address] [facility] [id number] [address] [place] [address] Aug, Bipolar II disorder F31.81 a nd Post-traumatic stress disorder, unspecified F43.10 [place] [address] [facility] [id number] [address] [place] [address] Aug, Bipolar disorder, current ep isode depressed, moderate F31.32 ; Post-traumatic stress disorder, chronic F43.12 and Personality disorder, unspecified F60.9 [place] [address] [facility] [id number] [address] [place] [address] Jul, Bipolar disorder, unspecifie d 296.80 and Posttraumatic stress disorder 309.81 [facility] [address] [id number] [address] [place] [address] Jul, Post-traumatic stress disord er, chronic F43.12 ; Personality disorder, unspecified F60.9 and Bipolar disorder, current episode depressed, moderate F31.32 [facility] [address] [id number] [address] [place] [address] Jun, Bipolar disorder, unspecifie d 296.80 and Posttraumatic stress disorder 309.81 [facility] [address] [id number] [address] [place] [address] Jun, Bipolar disorder, unspecifie d 296.80 and Posttraumatic stress disorder 309.81 [facility] [address] [id number] [address] [place] [address] Jun, Posttraumatic stress disorde r 309.81 and Bipolar disorder, unspecified 296.80 [facility] [address] [id number] [address] [place] [address] May, Bipolar II disorder 296.89 a nd Post traumatic stress disorder 309.81 [facility] [address] [id number] [address] [place] [address] May, Bipolar II disorder 296.89 a nd Post traumatic stress disorder 309.81 [facility] [address] [facility] [id number] [address] [place] [address] May, [facility] [address] [id number] [address] [place] [address] May, [facility] [address] [facility] [id number] [address] [place] [address] May, [facility] [address] [facility] [id number] [address] [place] [address] May, [facility] [address] [facility] [id number] [address] [place] [address] May, Bipolar II disorder 296.89 a nd Post traumatic stress disorder 309.81 [facility] [address] [id number] [address] [place] [address] May, Bipolar I disorder, most rec ent episode (or current) depressed, moderate 296.52 ; Posttraumatic stress disorder 309.81 and Anxiety state, unspecified 300.00 [facility] [address] [id number] [address] [place] [address] Apr, Bipolar II disorder 296.89 a nd Post traumatic stress disorder 309.81 [facility] [address] [facility] [id number] [address] [place] [address] Apr, [facility] [address] [id number] [address] [place] [address] Apr, Bipolar II disorder 296.89 a nd Post traumatic stress disorder 309.81 [facility] [address] [id number] [address] [place] [address] Apr, Bipolar II disorder 296.89 a nd Post traumatic stress disorder 309.81 [facility] [address] [id number] [address] [place] [address] Mar, Bipolar II disorder 296.89 a nd Post traumatic stress disorder 309.81 [facility] [address] [id number] [address] [place] [address] Mar, [facility] [address] [facility] [id number] [address] [place] [address] Mar, Bipolar II disorder 296.89 a nd Post traumatic stress disorder 309.81 [facility] [address] [id number] [address] [place] [address] Mar, Bipolar II disorder 296.89 a nd Post traumatic stress disorder 309.81 [facility] [address] [id number] [address] [place] [address] Mar, Bipolar II disorder 296.89 a nd Post traumatic stress disorder 309.81 [facility] [address] [id number] [address] [place] [address] Mar, [facility] [address] [id number] [address] [place] [address] Mar, Bipolar II disorder 296.89 a nd Post traumatic stress disorder 309.81 [facility] [address] [id number] [address] [place] [address] Feb, Bipolar II disorder 296.89 a nd Post traumatic stress disorder 309.81 [facility] [address] [id number] [address] [place] [address] Feb, [facility] [address] [id number] [address] [place] [address] Feb, Bipolar disorder, unspecifie d 296.80 and Anxiety state, unspecified 300.00 [facility] [address] [id number] [address] [place] [address] Feb, [facility] [address] [id number] [address] [place] [address] Feb, [facility] [address] [id number] [address] [place] [address] January, [facility] [address] [id number] [address] [place] [address] Dec, [facility] [address] [id number] [address] [place] [address] Dec, [facility] [address] [id number] [address] [place] [address] Nov, [facility] [address] [id number] [address] [place] [address] Nov, [facility] [address] [id number] [address] [place] [address] Nov, [facility] [address] [id number] [address] [place] [address] Nov, [facility] [address] [id number] [address] [place] [address] Nov, [facility] [address] [id number] [address] [place] [address] Nov, [facility] [address] [id number] [address] [place] [address] Nov, [facility] [address] [id number] [address] [place] [address] Nov, [facility] [address] [id number] [address] [place] [address] Nov, [facility] [address] [id number] [address] [place] [address], [place] [address] Oct, [facility] [address] [id number] [address] [place] [address], [place] [address] Oct, [facility] [address] [id number] [address] [place] [address], [place] [address] Oct, 2014 [facility] [address] [id number] [address] [place] [address], [place] [address] Oct, 2014 [facility] [address] [id number] [address] [place] [address], [place] [address] Oct, [facility] [address] [id number] [address] [place] [address], [place] [address] Oct, [facility] [address] [id number] [address] [place] [address], [place] [address] Oct, [facility] [address] [id number] [address] [place] [address], [place] [address] Oct, [facility] [address] [id number] [address] [place] [address], [place] [address] Sep, [facility] [address] [id number] [address] [place] [address], [place] [address] Sep, [facility] [address] [id number] [address] [place] [address], [place] [address] Sep, [facility] [address] [id number] [address] [place] [address], [place] [address] Sep, [facility] [address] [id number] [address] [place] [address], [place] [address] Sep, [facility] [address] [id number] [address] [place] [address], [place] [address] Sep, [facility] [address] [id number] [address] [place] [address], [place] [address] Sep, [facility] [address] [id number] [address] [place] [address], [place] [address] Sep, [facility] [address] [id number] [address] [place] [address], [place] [address] Sep, [facility] [address] [id number] [address] [place] [address], [place] [address] Sep, [facility] [address] [id number] [address] [place] [address], [place] [address] Aug, [facility] [address] [id number] [address] [place] [address], [place] [address] Aug, [facility] [address] [id number] [address] [place] [address], [place] [address] Aug, [facility] [address] [id number] [address] [place] [address], [place] [address] Aug, [facility] [address] [id number] [address] [place] [address], [place] [address] Aug, [facility] [address] [id number] [address] [place] [address], [place] [address] Aug, [facility] [address] [id number] [address] [place] [address], [place] [address] Aug, [facility] [address] [id number] [address] [place] [address], [place] [address] Aug, [facility] [address] [id number] [address] [place] [address], [place] [address] Jul, [facility] [address] [id number] [address] [place] [address], [place] [address] Jul, [facility] [address] [id number] [address] [place] [address], [place] [address] Jul, [facility] [address] [id number] [address] [place] [address], [place] [address] Jul, [facility] [address] [id number] [address] [place] [address], [place] [address] Jul, [facility] [address] [id number] [address] [place] [address], [place] [address] Jul, [facility] [address] [id number] [address] [place] [address], [place] [address] Jul, [facility] [address] [id number] [address] [place] [address], [place] [address] Jul, [facility] [address] [id number] [address] [place] [address], [place] [address] Jul, [facility] [address] [id number] [address] [place] [address], [place] [address] Jun, [facility] [address] [id number] [address] [place] [address], [place] [address] Jun, [facility] [address] [id number] [address] [place] [address], [place] [address] Jun, [facility] [address] [id number] [address] [place] [address], [place] [address] Jun, [facility] [address] [id number] [address] [place] [address], [place] [address] Jun, [facility] [address] [id number] [address] [place] [address], [place] [address] Jun, [facility] [address] [id number] [address] [place] [address], [place] [address] 25 May, 2013 [facility] [address] [id number] [address] [place] [address], [place] [address] 25 Sep, 2013 [facility] [address] [id number] [address] [place] [address], [place] [address] 16 Sep, 2013 [facility] [address] [id number] [address] [place] [address], [place] [address] 16 Sep, 2013 [facility] [address] [id number] [address] [place] [address], [place] [address] 05 Sep, 2013 [facility] [address] [id number] [address] [place] [address], [place] [address] May, [facility] [address] [id number] [address] [place] [address], [place] [address] Apr, [facility] [address] [id number] [address] [place] [address], [place] [address] Apr, [facility] [address] [id number] [address] [place] [address], [place] [address] Apr, [facility] [address] [id number] [address] [place] [address], [place] [address] Apr, [facility] [address] [id number] [address] [place] [address], [place] [address] Apr, [facility] [address] [id number] [address] [place] [address], [place] [address] Apr, [facility] [address] [id number] [address] [place] [address], [place] [address] Mar, [facility] [address] [id number] [address] [place] [address], [place] [address] Mar, [facility] [address] [id number] [address] [place] [address], [place] [address] Mar, [facility] [address] [id number] [address] [place] [address], [place] [address] Mar, [facility] [address] [id number] [address] [place] [address], [place] [address] Mar, [facility] [address] [id number] [address] [place] [address], [place] [address] Mar, [facility] [address] [id number] [address] [place] [address], [place] [address] Mar, [facility] [address] [id number] [address] [place] [address], [place] [address] Mar, [facility] [address] [id number] [address] [place] [address], [place] [address] Mar, [facility] [address] [id number] [address] [place] [address], [place] [address] Mar, 2013 [facility] [address] [id number] [address] [place] [address], [place] [address] Mar, 2013 [facility] [address] [id number] [address] [place] [address], [place] [address] Mar, 2013 [facility] [address] [id number] [address] [place] [address], [place] [address] Mar, 2013 [facility] [address] [id number] [address] [place] [address], [place] [address] Mar, 2013 [facility] [address] [id number] [address] [place] [address], [place] [address] Mar, 2013 [facility] [address] [id number] [address] [place] [address], [place] [address] Mar, 2013 [facility] [address] [id number] [address] [place] [address], [place] [address] Feb, [facility] [address] [id number] [address] [place] [address], [place] [address] 30 Feb, 2014 [facility] [address] [id number] [address] [place] [address], [place] [address] Feb, [facility] [address] [id number] [address] [place] [address], [place] [address] Feb, [facility] [address] [id number] [address] [place] [address], [place] [address] Feb, [facility] [address] [id number] [address] [place] [address], [place] [address] 23 Feb, 2014 [facility] [address] [id number] [address] [place] [address], [place] [address] 20 Feb, 2014 [facility] [address] [id number] [address] [place] [address], [place] [address] 16 Feb, 2014 [facility] [address] [id number] [address] [place] [address], [place] [address] Feb, [facility] [address] [id number] [facility] [place] [address] Feb, [facility] [address] [id number] [facility] [place] [address] Feb, [facility] [address] [id number] [facility] [place] [address] Feb, [facility] [address] [id number] [address] [place] [address], [place] [address] Feb, [facility] [address] [id number] [facility] [place] [address] January, [facility] [address] [id number] [address] [place] [address], [place] [address] January, [facility] [address] [id number] [address] [place] [address], [place] [address] January, [facility] [address] [id number] [address] [place] [address], [place] [address] January, [facility] [address] [id number] [address] [place] [address], [place] [address] January, [facility] [address] [id number] [address] [place] [address], [place] [address] January, [facility] [address] [id number] [address] [place] [address], [place] [address] January, [facility] [address] [id number] [address] [place] [address], [place] [address] January, [facility] [address] [id number] [address] [place] [address], [place] [address] January, [facility] [address] [id number] [address] [place] [address], [place] [address] January, [facility] [address] [id number] [address] [place] [address], [place] [address] January, [facility] [address] [id number] [address] [place] [address], [place] [address] January, [facility] [address] [id number] [facility] [place] [address] January, [facility] [address] [id number] [address] [place] [address], [place] [address] January, [facility] [address] [id number] [address] [place] [address], [place] [address] Dec, [facility] [address] [id number] [address] [place] [address], [place] [address] Dec, [facility] [address] [id number] [address] [place] [address], [place] [address] Dec, [facility] [address] [id number] [address] [place] [address], [place] [address] Dec, [facility] [address] [id number] [address] [place] [address], [place] [address] Dec, [facility] [address] [id number] [address] [place] [address], [place] [address] Dec, [facility] [address] [id number] [address] [place] [address], [place] [address] Dec, [facility] [address] [id number] [address] [place] [address], [place] [address] Dec, [facility] [address] [id number] [address] [place] [address], [place] [address] Nov, [facility] [address] [id number] [address] [place] [address], [place] [address] Nov, [facility] [address] [id number] [address] [place] [address], [place] [address] Nov, [facility] [address] [id number] [address] [place] [address], [place] [address] Nov, [facility] [address] [id number] [address] [place] [address], [place] [address] Oct, [facility] [address] [id number] [address] [place] [address], [place] [address] Oct, [facility] [address] [id number] [address] [place] [address], [place] [address] Oct, [facility] [address] [id number] [address] [place] [address], [place] [address] Oct, [facility] [address] [id number] [address] [place] [address], [place] [address] Oct, [facility] [address] [id number] [address] [place] [address], [place] [address] Oct, [facility] [address] [id number] [address] [place] [address], [place] [address] Sep, [facility] [address] [id number] [address] [place] [address], [place] [address] Sep, [facility] [address] [id number] [address] [place] [address], [place] [address] Sep, [facility] [address] [id number] [address] [place] [address], [place] [address] Sep, [facility] [address] [id number] [address] [place] [address], [place] [address] Sep, [facility] [address] [id number] [address] [place] [address], [place] [address] Sep, [facility] [address] [id number] [address] [place] [address], [place] [address] Sep, [facility] [address] [id number] [address] [place] [address], [place] [address] Sep, [facility] [address] [id number] [address] [place] [address], [place] [address] Sep, [facility] [address] [id number] [address] [place] [address], [place] [address] Sep, [facility] [address] [id number] [address] [place] [address], [place] [address] Aug, [facility] [address] [id number] [address] [place] [address], [place] [address] Aug, [facility] [address] [id number] [address] [place] [address], [place] [address] Aug, [facility] [address] [id number] [address] [place] [address], [place] [address] Aug, [facility] [address] [id number] [address] [place] [address], [place] [address] Aug, [facility] [address] [id number] [address] [place] [address], [place] [address] Aug, [facility] [address] [id number] [address] [place] [address], [place] [address] Aug, [facility] [address] [id number] [address] [place] [address], [place] [address] Aug, [facility] [address] [id number] [address] [place] [address], [place] [address] Jul, [facility] [address] [id number] [address] [place] [address], [place] [address] Jul, [facility] [address] [id number] [address] [place] [address] Jul, [facility] [address] [id number] [address] [place] [address] Jul, [facility] [address] [id number] [address] [place] [address] Jul, [facility] [address] [id number] [address] [place] [address] Jul, [facility] [address] [id number] [address] [place] [address] Jul, [facility] [address] [id number] [address] [place] [address] Jul, [facility] [address] [id number] [address] [place] [address] Jul, [facility] [address] [id number] [address] [place] [address], [place] [address] Jul, [facility] [address] [id number] [address] [place] [address] Jul, [facility] [address] [id number] [address] [place] [address], [place] [address] Jul, [facility] [address] [id number] [address] [place] [address], [place] [address] 30 Jun, 2013 [facility] [address] [id number] [address] [place] [address], [place] [address] 30 Jun, 2013 [facility] [address] [id number] [address] [place] [address], [place] [address] 29 Jun, 2013 [facility] [address] [id number] [address] [place] [address] Jun, [facility] [address] [id number] [address] [place] [address], [place] [address] Jun, [facility] [address] [id number] [address] [place] [address], [place] [address] Jun, [facility] [address] [id number] [address] [place] [address] 16 Jun, 2013 [facility] [address] [id number] [address] [place] [address] 02 Jun, 2013 [facility] [address] [id number] [address] [place] [address] 25 May, 2012 [facility] [address] [id number] [address] [place] [address], [place] [address] 18 Sep, 2012 [facility] [address] [id number] [address] [place] [address] 11 May, 2012 [facility] [address] [id number] [address] [place] [address] 10 May, 2012 [facility] [address] [id number] [facility] [place] [address] May, [facility] [address] [id number] [address] [place] [address], [place] [address] May, [facility] [address] [id number] [address] [place] [address], [place] [address] Apr, [facility] [address] [id number] [address] [place] [address], [place] [address] Apr, [facility] [address] [id number] [address] [place] [address], [place] [address] Apr, [facility] [address] [id number] [address] [place] [address], [place] [address] Apr, [facility] [address] [id number] [address] [place] [address], [place] [address] Apr, [facility] [address] [id number] [address] [place] [address], [place] [address] Mar, [facility] [address] [id number] [address] [place] [address], [place] [address] Mar, [facility] [address] [id number] [address] [place] [address], [place] [address] Mar, [facility] [address] [id number] [address] [place] [address], [place] [address] Feb, [facility] [address] [id number] [address] [place] [address], [place] [address] Feb, [facility] [address] [id number] [address] [place] [address], [place] [address] Feb, [facility] [address] [id number] [address] [place] [address], [place] [address] January, [facility] [address] [id number] [address] [place] [address], [place] [address] January, [facility] [address] [id number] [address] [place], [place] [address] [address] Dec, [facility] [address] [facility] [id number] [address] [place] [address] Nov, [facility] [address] [facility] [id number] [address] [place] [address] Nov, IMMUNIZATIONS No Known Immunizations SOCIAL HISTORY Never Assessed REASON FOR VISIT EMR-[facility] PLAN OF CARE VITAL SIGNS MEDICATIONS No [...]
--- OUTSIDE RECORDS SUMMARY | 2019-12-04 12:00 | XMS REPORT ---
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 childbirth
--- OUTSIDE RECORDS SUMMARY | 2019-12-04 12:00 | XMS REPORT ---
Author Author Shireen Moyer Doctor Organization [facility] Address Unknown Phone Unavailable Care Team Providers Care Impression Printer Name Role Phone Migration, Doctor Unavailable Unavailable PROBLEMS Type Condition ICD9-CM Code [id number] Code Onset Dates Condition S tatus SNOMED Code Problem Bipolar disorder, current episode depressed, moderate F31.32 Active 281251970 Problem Anorexia nervosa F50.00 Active 568 07102 Problem Personality disorder, unspecified F60.9 Active 85102551 Problem Post-traumatic stress disorder, chronic F43.12 Active [id number] ALLERGIES No Information ENCOUNTERS Encounter Location Date Diagnosis [place] [address] [address] Jul, Bipolar disorder, current ep isode depressed, moderate F31.32 and Anorexia nervosa F50.00 [place] [id number] [place] [id number] [place] [address] Jul, [facility] [address] [place] [id number] [place] [address] Jul, [facility] [address] [place] [id number] [place] [address] Jul, [facility] [address] [place] [id number] [place] [address] Jun, Bipolar disorder, current ep isode depressed, moderate F31.32 ; Post-traumatic stress disorder, chronic F43.12 and Eating disorder, unspecified F50.9 [facility] [address] [facility] [facility] [id number] [address] [place] [address] May, [facility] [address] [place] [id number] [place] [address] Apr, Bipolar disorder, current ep isode depressed, moderate F31.32 ; Post-traumatic stress disorder, chronic F43.12 and Eating disorder, unspecified F50.9 [facility] [address] [id number] [address] [place] [address] 14 Feb, 2016 Bipolar disorder, current ep isode depressed, moderate F31.32 ; Post-traumatic stress disorder, chronic F43.12 and Personality disorder, unspecified F60.9 [facility] [address] [id number] [address] [place] [address] 14 Feb, 2016 Bipolar II disorder F31.81 [facility] [address] [id number] [address] [place] [address] Dec, Bipolar disorder, current ep isode depressed, moderate F31.32 ; Post-traumatic stress disorder, chronic F43.12 and Personality disorder, unspecified F60.9 [place] [address] [id number] [address] [place] [address] Dec, Bipolar disorder, current ep isode depressed, moderate F31.32 ; Post-traumatic stress disorder, chronic F43.12 and Personality disorder, unspecified F60.9 [place] [address] [id number] [address] [place] [address] Dec, [facility] [address] [id number] [address] [place] [address] Dec, [place] [address] [facility] [id number] [address] [place] [address] Dec, Bipolar disorder, current ep isode depressed, moderate F31.32 ; Post-traumatic stress disorder, chronic F43.12 and Personality disorder, unspecified F60.9 [place] [address] [id number] [address] [place] [address] Nov, [facility] [address] [id number] [address] [place] [address] Nov, Bipolar disorder, current ep isode depressed, moderate F31.32 ; Post-traumatic stress disorder, chronic F43.12 and Personality disorder, unspecified F60.9 [facility] [address] [id number] [address] [place] [address] Nov, Bipolar disorder, current ep isode depressed, moderate F31.32 ; Post-traumatic stress disorder, chronic F43.12 and Personality disorder, unspecified F60.9 [place] [address] [id number] [address] [place] [address] Oct, [facility] [address] [id number] [address] [place], [place] [address] Oct, Bipolar disorder, current ep isode depressed, moderate F31.32 ; Post-traumatic stress disorder, chronic F43.12 and Personality disorder, unspecified F60.9 [place] [address] [facility] [id number] [address] [place] [address] Oct, Bipolar disorder, current ep isode depressed, moderate F31.32 ; Post-traumatic stress disorder, chronic F43.12 and Personality disorder, unspecified F60.9 [place] [address] [facility] [id number] [address] [place] [address] Aug, Bipolar II disorder F31.81 a nd Post-traumatic stress disorder, unspecified F43.10 [place] [address] [facility] [id number] [address] [place] [address] Aug, Bipolar disorder, current ep isode depressed, moderate F31.32 ; Post-traumatic stress disorder, chronic F43.12 and Personality disorder, unspecified F60.9 [place] [address] [facility] [id number] [address] [place] [address] Jul, Bipolar disorder, unspecifie d 296.80 and Posttraumatic stress disorder 309.81 [facility] [address] [id number] [address] [place] [address] Jul, Post-traumatic stress disord er, chronic F43.12 ; Personality disorder, unspecified F60.9 and Bipolar disorder, current episode depressed, moderate F31.32 [facility] [address] [id number] [address] [place] [address] Jun, Bipolar disorder, unspecifie d 296.80 and Posttraumatic stress disorder 309.81 [facility] [address] [id number] [address] [place] [address] Jun, Bipolar disorder, unspecifie d 296.80 and Posttraumatic stress disorder 309.81 [facility] [address] [id number] [address] [place] [address] Jun, Posttraumatic stress disorde r 309.81 and Bipolar disorder, unspecified 296.80 [facility] [address] [id number] [address] [place] [address] May, Bipolar II disorder 296.89 a nd Post traumatic stress disorder 309.81 [facility] [address] [id number] [address] [place] [address] May, Bipolar II disorder 296.89 a nd Post traumatic stress disorder 309.81 [facility] [address] [facility] [id number] [address] [place] [address] May, [facility] [address] [id number] [address] [place] [address] May, [facility] [address] [facility] [id number] [address] [place] [address] May, [facility] [address] [facility] [id number] [address] [place] [address] May, [facility] [address] [facility] [id number] [address] [place] [address] May, Bipolar II disorder 296.89 a nd Post traumatic stress disorder 309.81 [facility] [address] [id number] [address] [place] [address] May, Bipolar I disorder, most rec ent episode (or current) depressed, moderate 296.52 ; Posttraumatic stress disorder 309.81 and Anxiety state, unspecified 300.00 [facility] [address] [id number] [address] [place] [address] Apr, Bipolar II disorder 296.89 a nd Post traumatic stress disorder 309.81 [facility] [address] [facility] [id number] [address] [place] [address] Apr, [facility] [address] [id number] [address] [place] [address] Apr, Bipolar II disorder 296.89 a nd Post traumatic stress disorder 309.81 [facility] [address] [id number] [address] [place] [address] Apr, Bipolar II disorder 296.89 a nd Post traumatic stress disorder 309.81 [facility] [address] [id number] [address] [place] [address] Mar, Bipolar II disorder 296.89 a nd Post traumatic stress disorder 309.81 [facility] [address] [id number] [address] [place] [address] Mar, [facility] [address] [id number] [address] [place] [address] Mar, Bipolar II disorder 296.89 a nd Post traumatic stress disorder 309.81 [facility] [address] [id number] [address] [place] [address] Mar, Bipolar II disorder 296.89 a nd Post traumatic stress disorder 309.81 [facility] [address] [id number] [address] [place] [address] Mar, Bipolar II disorder 296.89 a nd Post traumatic stress disorder 309.81 [facility] [address] [id number] [address] [place] [address] Mar, [facility] [address] [id number] [address] [place] [address] Mar, Bipolar II disorder 296.89 a nd Post traumatic stress disorder 309.81 [facility] [address] [id number] [address] [place] [address] Feb, Bipolar II disorder 296.89 a nd Post traumatic stress disorder 309.81 [facility] [address] [id number] [address] [place] [address] Feb, [facility] [address] [id number] [address] [place] [address] Feb, Bipolar disorder, unspecifie d 296.80 and Anxiety state, unspecified 300.00 [facility] [address] [id number] [address] [place] [address] Feb, [facility] [address] [id number] [address] [place] [address] Feb, [facility] [address] [id number] [address] [place] [address] January, [facility] [address] [id number] [address] [place] [address] Dec, [facility] [address] [id number] [address] [place] [address] Dec, [facility] [address] [id number] [address] [place] [address] Nov, [facility] [address] [id number] [address] [place] [address] Nov, [facility] [address] [id number] [address] [place] [address] Nov, [facility] [address] [id number] [address] [place] [address] Nov, [facility] [address] [id number] [address] [place] [address] Nov, [facility] [address] [id number] [address] [place] [address] Nov, [facility] [address] [id number] [address] [place] [address] Nov, [facility] [address] [id number] [address] [place] [address] Nov, [facility] [address] [id number] [address] [place] [address] Nov, [facility] [address] [id number] [address] [place] [address], [place] [address] Oct, [facility] [address] [id number] [address] [place] [address], [place] [address] Oct, [facility] [address] [id number] [address] [place] [address], [place] [address] Oct, 2014 [facility] [address] [id number] [address] [place] [address], [place] [address] Oct, 2014 [facility] [address] [id number] [address] [place] [address], [place] [address] Oct, [facility] [address] [id number] [address] [place] [address], [place] [address] Oct, [facility] [address] [id number] [address] [place] [address], [place] [address] Oct, [facility] [address] [id number] [address] [place] [address], [place] [address] Oct, [facility] [address] [id number] [address] [place] [address], [place] [address] Sep, [facility] [address] [id number] [address] [place] [address], [place] [address] Sep, [facility] [address] [id number] [address] [place] [address], [place] [address] Sep, [facility] [address] [id number] [address] [place] [address], [place] [address] Sep, [facility] [address] [id number] [address] [place] [address], [place] [address] Sep, [facility] [address] [id number] [address] [place] [address], [place] [address] Sep, [facility] [address] [id number] [address] [place] [address], [place] [address] Sep, [facility] [address] [id number] [address] [place] [address], [place] [address] Sep, [facility] [address] [id number] [address] [place] [address], [place] [address] Sep, [facility] [address] [id number] [address] [place] [address], [place] [address] Sep, [facility] [address] [id number] [address] [place] [address], [place] [address] Aug, [facility] [address] [id number] [address] [place] [address], [place] [address] Aug, [facility] [address] [id number] [address] [place] [address], [place] [address] Aug, [facility] [address] [id number] [address] [place] [address], [place] [address] Aug, [facility] [address] [id number] [address] [place] [address], [place] [address] Aug, [facility] [address] [id number] [address] [place] [address], [place] [address] Aug, [facility] [address] [id number] [address] [place] [address], [place] [address] Aug, [facility] [address] [id number] [address] [place] [address], [place] [address] Aug, [facility] [address] [id number] [address] [place] [address], [place] [address] Jul, [facility] [address] [id number] [address] [place] [address], [place] [address] Jul, [facility] [address] [id number] [address] [place] [address], [place] [address] Jul, [facility] [address] [id number] [address] [place] [address], [place] [address] Jul, [facility] [address] [id number] [address] [place] [address], [place] [address] Jul, [facility] [address] [id number] [address] [place] [address], [place] [address] Jul, [facility] [address] [id number] [address] [place] [address], [place] [address] Jul, [facility] [address] [id number] [address] [place] [address], [place] [address] Jul, [facility] [address] [id number] [address] [place] [address], [place] [address] Jul, [facility] [address] [id number] [address] [place] [address], [place] [address] Jun, [facility] [address] [id number] [address] [place] [address], [place] [address] Jun, [facility] [address] [id number] [address] [place] [address], [place] [address] Jun, [facility] [address] [id number] [address] [place] [address], [place] [address] Jun, [facility] [address] [id number] [address] [place] [address], [place] [address] Jun, [facility] [address] [id number] [address] [place] [address], [place] [address] Jun, [facility] [address] [id number] [address] [place] [address], [place] [address] 25 May, 2013 [facility] [address] [id number] [address] [place] [address], [place] [address] 25 Sep, 2013 [facility] [address] [id number] [address] [place] [address], [place] [address] 16 Sep, 2013 [facility] [address] [id number] [address] [place] [address], [place] [address] 16 Sep, 2013 [facility] [address] [id number] [address] [place] [address], [place] [address] 05 Sep, 2013 [facility] [address] [id number] [address] [place] [address], [place] [address] May, [facility] [address] [id number] [address] [place] [address], [place] [address] Apr, [facility] [address] [id number] [address] [place] [address], [place] [address] Apr, [facility] [address] [id number] [address] [place] [address], [place] [address] Apr, [facility] [address] [id number] [address] [place] [address], [place] [address] Apr, [facility] [address] [id number] [address] [place] [address], [place] [address] Apr, [facility] [address] [id number] [address] [place] [address], [place] [address] Apr, [facility] [address] [id number] [address] [place] [address], [place] [address] Mar, [facility] [address] [id number] [address] [place] [address], [place] [address] Mar, [facility] [address] [id number] [address] [place] [address], [place] [address] Mar, [facility] [address] [id number] [address] [place] [address], [place] [address] Mar, [facility] [address] [id number] [address] [place] [address], [place] [address] Mar, [facility] [address] [id number] [address] [place] [address], [place] [address] Mar, [facility] [address] [id number] [address] [place] [address], [place] [address] Mar, [facility] [address] [id number] [address] [place] [address], [place] [address] Mar, [facility] [address] [id number] [address] [place] [address], [place] [address] Mar, [facility] [address] [id number] [address] [place] [address], [place] [address] Mar, 2013 [facility] [address] [id number] [address] [place] [address], [place] [address] Mar, 2013 [facility] [address] [id number] [address] [place] [address], [place] [address] Mar, 2013 [facility] [address] [id number] [address] [place] [address], [place] [address] Mar, 2013 [facility] [address] [id number] [address] [place] [address], [place] [address] Mar, 2013 [facility] [address] [id number] [address] [place] [address], [place] [address] Mar, 2013 [facility] [address] [id number] [address] [place] [address], [place] [address] Mar, 2013 [facility] [address] [id number] [address] [place] [address], [place] [address] Feb, [facility] [address] [id number] [address] [place] [address], [place] [address] 30 Feb, 2014 [facility] [address] [id number] [address] [place] [address], [place] [address] Feb, [facility] [address] [id number] [address] [place] [address], [place] [address] Feb, [facility] [address] [id number] [address] [place] [address], [place] [address] Feb, [facility] [address] [id number] [address] [place] [address], [place] [address] 23 Feb, 2014 [facility] [address] [id number] [address] [place] [address], [place] [address] 20 Feb, 2014 [facility] [address] [id number] [address] [place] [address], [place] [address] 16 Feb, 2014 [facility] [address] [id number] [address] [place] [address], [place] [address] Feb, [facility] [address] [id number] [facility] [place] [address] Feb, [facility] [address] [id number] [facility] [address] Feb, [facility] [address] [id number] [facility] [place] [address] Feb, [facility] [address] [id number] [address] [place] [address], [place] [address] Feb, [facility] [address] [id number] [facility] [address] January, [facility] [address] [id number] [address] [place] [address], [place] [address] January, [facility] [address] [id number] [address] [place] [address], [place] [address] January, [facility] [address] [id number] [address] [place] [address], [place] [address] January, [facility] [address] [id number] [address] [place] [address], [place] [address] January, [facility] [address] [id number] [address] [place] [address], [place] [address] January, [facility] [address] [id number] [address] [place] [address], [place] [address] January, [facility] [address] [id number] [address] [place] [address], [place] [address] January, [facility] [address] [id number] [address] [place] [address], [place] [address] January, [facility] [address] [id number] [address] [place] [address], [place] [address] January, [facility] [address] [id number] [address] [place] [address], [place] [address] January, [facility] [address] [id number] [address] [place] [address], [place] [address] January, [facility] [address] [id number] [facility] [address] January, [facility] [address] [id number] [address] [place] [address], [place] [address] January, [facility] [address] [id number] [address] [place] [address], [place] [address] Dec, [facility] [address] [id number] [address] [place] [address], [place] [address] Dec, [facility] [address] [id number] [address] [place] [address], [place] [address] Dec, [facility] [address] [id number] [address] [place] [address], [place] [address] Dec, [facility] [address] [id number] [address] [place] [address], [place] [address] Dec, [facility] [address] [id number] [address] [place] [address], [place] [address] Dec, [facility] [address] [id number] [address] [place] [address], [place] [address] Dec, [facility] [address] [id number] [address] [place] [address], [place] [address] Dec, [facility] [address] [id number] [address] [place] [address], [place] [address] Nov, [facility] [address] [id number] [address] [place] [address], [place] [address] Nov, [facility] [address] [id number] [address] [place] [address], [place] [address] Nov, [facility] [address] [id number] [address] [place] [address], [place] [address] Nov, [facility] [address] [id number] [address] [place] [address], [place] [address] Oct, [facility] [address] [id number] [address] [place] [address], [place] [address] Oct, [facility] [address] [id number] [address] [place] [address], [place] [address] Oct, [facility] [address] [id number] [address] [place] [address], [place] [address] Oct, [facility] [address] [id number] [address] [place] [address], [place] [address] Oct, [facility] [address] [id number] [address] [place] [address], [place] [address] Oct, [facility] [address] [id number] [address] [place] [address], [place] [address] Sep, [facility] [address] [id number] [address] [place] [address], [place] [address] Sep, [facility] [address] [id number] [address] [place] [address], [place] [address] Sep, [facility] [address] [id number] [address] [place] [address], [place] [address] Sep, [facility] [address] [id number] [address] [place] [address], [place] [address] Sep, [facility] [address] [id number] [address] [place] [address], [place] [address] Sep, [facility] [address] [id number] [address] [place] [address], [place] [address] Sep, [facility] [address] [id number] [address] [place] [address], [place] [address] Sep, [facility] [address] [id number] [address] [place] [address], [place] [address] Sep, [facility] [address] [id number] [address] [place] [address], [place] [address] Sep, [facility] [address] [id number] [address] [place] [address], [place] [address] Aug, [facility] [address] [id number] [address] [place] [address], [place] [address] Aug, [facility] [address] [id number] [address] [place] [address], [place] [address] Aug, [facility] [address] [id number] [address] [place] [address], [place] [address] Aug, [facility] [address] [id number] [address] [place] [address], [place] [address] Aug, [facility] [address] [id number] [address] [place] [address], [place] [address] Aug, [facility] [address] [id number] [address] [place] [address], [place] [address] Aug, [facility] [address] [id number] [address] [place] [address], [place] [address] Aug, [facility] [address] [id number] [address] [place] [address], [place] [address] Jul, [facility] [address] [id number] [address] [place] [address], [place] [address] Jul, [facility] [address] [id number] [address] [place] [address] Jul, [facility] [address] [id number] [address] [place] [address] Jul, [facility] [address] [id number] [address] [place] [address] Jul, [facility] [address] [id number] [address] [place] [address] Jul, [facility] [address] [id number] [address] [place] [address] Jul, [facility] [address] [id number] [address] [place] [address] Jul, [facility] [address] [id number] [address] [place] [address] Jul, [facility] [address] [id number] [address] [place] [address], [place] [address] Jul, [facility] [address] [id number] [address] [place] [address] Jul, [facility] [address] [id number] [address] [place] [address], [place] [address] Jul, [facility] [address] [id number] [address] [place] [address], [place] [address] 30 Jun, 2013 [facility] [address] [id number] [address] [place] [address], [place] [address] 30 Jun, 2013 [facility] [address] [id number] [address] [place] [address], [place] [address] 29 Jun, 2013 [facility] [address] [id number] [address] [place] [address] Jun, [facility] [address] [id number] [address] [place] [address], [place] [address] Jun, [facility] [address] [id number] [address] [place] [address], [place] [address] Jun, [facility] [address] [id number] [address] [place] [address] 16 Jun, 2013 [facility] [address] [id number] [address] [place] [address] 02 Jun, 2013 [facility] [address] [id number] [address] [place] [address] 25 May, 2012 [facility] [address] [id number] [address] [place] [address], [place] [address] 18 Sep, 2012 [facility] [address] [id number] [address] [place] [address] 11 May, 2012 [facility] [address] [id number] [address] [place] [address] 10 May, 2012 [facility] [address] [id number] [facility] [address] May, [facility] [address] [id number] [address] [place] [address], [place] [address] May, [facility] [address] [id number] [address] [place] [address], [place] [address] Apr, [facility] [address] [id number] [address] [place] [address], [place] [address] Apr, [facility] [address] [id number] [address] [place] [address], [place] [address] Apr, [facility] [address] [id number] [address] [place] [address], [place] [address] Apr, [facility] [address] [id number] [address] [place] [address], [place] [address] Apr, [facility] [address] [id number] [address] [place] [address], [place] [address] Mar, [facility] [address] [id number] [address] [place] [address], [place] [address] Mar, [facility] [address] [id number] [address] [place] [address], [place] [address] Mar, [facility] [address] [id number] [address] [place] [address], [place] [address] Feb, [facility] [address] [id number] [address] [place] [address], [place] [address] Feb, [facility] [address] [id number] [address] [place] [address], [place] [address] Feb, [facility] [address] [id number] [address] [place] [address], [place] [address] January, [facility] [address] [id number] [address] [place] [address], [place] [address] January, [facility] [address] [id number] [address] [place] [address] [address] Dec, [facility] [address] [facility] [id number] [address] [place] [address] Nov, [facility] [address] [facility] [id number] [address] [place] [address] Nov, IMMUNIZATIONS No Known Immunizations SOCIAL HISTORY Never Assessed REASON FOR VISIT EMR[place] [place] [facility] [place] C[place] VITAL [...]
--- OUTSIDE RECORDS SUMMARY | 2019-12-04 12:01 | XMS REPORT ---
Author Author Shireen Moyer Doctor Organization [facility] Address Unknown Phone Unavailable Care Team Providers Care Electrical Accessories I Assembler Name Role Phone Migration, Doctor Unavailable Unavailable PROBLEMS Type Condition ICD9-CM Code [id number] Code Onset Dates Condition S tatus SNOMED Code Problem Bipolar disorder, current episode depressed, moderate F31.32 Active 491201005 Problem Anorexia nervosa F50.00 Active 568 72681 Problem Personality disorder, unspecified F60.9 Active [id number] Problem Post-traumatic stress disorder, chronic F43.12 Active 27631494 ALLERGIES No Information ENCOUNTERS Encounter Location Date Diagnosis [place] [address] [address] Jul, Bipolar disorder, current ep isode depressed, moderate F31.32 and Anorexia nervosa F50.00 [place] [address] [place] [id number] [place] [address] Jul, [place] [address] [place] [id number] [address] [place] [address] Jul, [facility] [address] [place] [id number] [address] [place] [address] Jul, [facility] [address] [place] [id number] [address] [place] [address] Jun, Bipolar disorder, current ep isode depressed, moderate F31.32 ; Post-traumatic stress disorder, chronic F43.12 and Eating disorder, unspecified F50.9 [facility] [address] [facility] [id number] [address] [place] [address] May, [facility] [address] [place] [id number] [address] [place] [address] Apr, Bipolar disorder, current ep isode depressed, moderate F31.32 ; Post-traumatic stress disorder, chronic F43.12 and Eating disorder, unspecified F50.9 [facility] [address] [id number] [address] [place] [address] 14 Feb, 2016 Bipolar disorder, current ep isode depressed, moderate F31.32 ; Post-traumatic stress disorder, chronic F43.12 and Personality disorder, unspecified F60.9 [facility] [address] [id number] [address] [place] [address] 14 Feb, 2016 Bipolar II disorder F31.81 [facility] [address] [id number] [address] [place] [address] Dec, Bipolar disorder, current ep isode depressed, moderate F31.32 ; Post-traumatic stress disorder, chronic F43.12 and Personality disorder, unspecified F60.9 [place] [address] [id number] [address] [place] [address] Dec, Bipolar disorder, current ep isode depressed, moderate F31.32 ; Post-traumatic stress disorder, chronic F43.12 and Personality disorder, unspecified F60.9 [place] [address] [id number] [address] [place] [address] Dec, [facility] [address] [id number] [address] [place] [address] Dec, [place] [address] [facility] [id number] [address] [place] [address] Dec, Bipolar disorder, current ep isode depressed, moderate F31.32 ; Post-traumatic stress disorder, chronic F43.12 and Personality disorder, unspecified F60.9 [place] [address] [id number] [address] [place] [address] Nov, [facility] [address] [id number] [address] [place] [address] Nov, Bipolar disorder, current ep isode depressed, moderate F31.32 ; Post-traumatic stress disorder, chronic F43.12 and Personality disorder, unspecified F60.9 [facility] [address] [id number] [address] [place] [address] Nov, Bipolar disorder, current ep isode depressed, moderate F31.32 ; Post-traumatic stress disorder, chronic F43.12 and Personality disorder, unspecified F60.9 [place] [address] [id number] [address] [place] [address] Oct, [facility] [address] [id number] [address] [place], [place] [address] Oct, Bipolar disorder, current ep isode depressed, moderate F31.32 ; Post-traumatic stress disorder, chronic F43.12 and Personality disorder, unspecified F60.9 [place] [address] [facility] [id number] [address] [place] [address] Oct, Bipolar disorder, current ep isode depressed, moderate F31.32 ; Post-traumatic stress disorder, chronic F43.12 and Personality disorder, unspecified F60.9 [place] [address] [facility] [id number] [address] [place] [address] Aug, Bipolar II disorder F31.81 a nd Post-traumatic stress disorder, unspecified F43.10 [place] [address] [facility] [id number] [address] [place] [address] Aug, Bipolar disorder, current ep isode depressed, moderate F31.32 ; Post-traumatic stress disorder, chronic F43.12 and Personality disorder, unspecified F60.9 [place] [address] [facility] [id number] [address] [place] [address] Jul, Bipolar disorder, unspecifie d 296.80 and Posttraumatic stress disorder 309.81 [facility] [address] [id number] [address] [place] [address] Jul, Post-traumatic stress disord er, chronic F43.12 ; Personality disorder, unspecified F60.9 and Bipolar disorder, current episode depressed, moderate F31.32 [facility] [address] [id number] [address] [place] [address] Jun, Bipolar disorder, unspecifie d 296.80 and Posttraumatic stress disorder 309.81 [facility] [address] [id number] [address] [place] [address] Jun, Bipolar disorder, unspecifie d 296.80 and Posttraumatic stress disorder 309.81 [facility] [address] [id number] [address] [place] [address] Jun, Posttraumatic stress disorde r 309.81 and Bipolar disorder, unspecified 296.80 [facility] [address] [id number] [address] [place] [address] May, Bipolar II disorder 296.89 a nd Post traumatic stress disorder 309.81 [facility] [address] [id number] [address] [place] [address] May, Bipolar II disorder 296.89 a nd Post traumatic stress disorder 309.81 [facility] [address] [facility] [id number] [address] [place] [address] May, [facility] [address] [id number] [address] [place] [address] May, [facility] [address] [facility] [id number] [address] [place] [address] May, [facility] [address] [facility] [id number] [address] [place] [address] May, [facility] [address] [facility] [id number] [address] [place] [address] May, Bipolar II disorder 296.89 a nd Post traumatic stress disorder 309.81 [facility] [address] [id number] [address] [place] [address] May, Bipolar I disorder, most rec ent episode (or current) depressed, moderate 296.52 ; Posttraumatic stress disorder 309.81 and Anxiety state, unspecified 300.00 [facility] [address] [id number] [address] [place] [address] Apr, Bipolar II disorder 296.89 a nd Post traumatic stress disorder 309.81 [facility] [address] [facility] [id number] [address] [place] [address] Apr, [facility] [address] [id number] [address] [place] [address] Apr, Bipolar II disorder 296.89 a nd Post traumatic stress disorder 309.81 [facility] [address] [id number] [address] [place] [address] Apr, Bipolar II disorder 296.89 a nd Post traumatic stress disorder 309.81 [facility] [address] [id number] [address] [place] [address] Mar, Bipolar II disorder 296.89 a nd Post traumatic stress disorder 309.81 [facility] [address] [id number] [address] [place] [address] Mar, [facility] [address] [facility] [id number] [address] [place] [address] Mar, Bipolar II disorder 296.89 a nd Post traumatic stress disorder 309.81 [facility] [address] [id number] [address] [place] [address] Mar, Bipolar II disorder 296.89 a nd Post traumatic stress disorder 309.81 [facility] [address] [id number] [address] [place] [address] Mar, Bipolar II disorder 296.89 a nd Post traumatic stress disorder 309.81 [facility] [address] [id number] [address] [place] [address] Mar, [facility] [address] [id number] [address] [place] [address] Mar, Bipolar II disorder 296.89 a nd Post traumatic stress disorder 309.81 [facility] [address] [id number] [address] [place] [address] Feb, Bipolar II disorder 296.89 a nd Post traumatic stress disorder 309.81 [facility] [address] [id number] [address] [place] [address] Feb, [facility] [address] [id number] [address] [place] [address] Feb, Bipolar disorder, unspecifie d 296.80 and Anxiety state, unspecified 300.00 [facility] [address] [id number] [address] [place] [address] Feb, [facility] [address] [id number] [address] [place] [address] Feb, [facility] [address] [id number] [address] [place] [address] January, [facility] [address] [id number] [address] [place] [address] Dec, [facility] [address] [id number] [address] [place] [address] Dec, [facility] [address] [id number] [address] [place] [address] Nov, [facility] [address] [id number] [address] [place] [address] Nov, [facility] [address] [id number] [address] [place] [address] Nov, [facility] [address] [id number] [address] [place] [address] Nov, [facility] [address] [id number] [address] [place] [address] Nov, [facility] [address] [id number] [address] [place] [address] Nov, [facility] [address] [id number] [address] [place] [address] Nov, [facility] [address] [id number] [address] [place] [address] Nov, [facility] [address] [id number] [address] [place] [address] Nov, [facility] [address] [id number] [address] [place] [address], [place] [address] Oct, [facility] [address] [id number] [address] [place] [address], [place] [address] Oct, [facility] [address] [id number] [address] [place] [address], [place] [address] Oct, 2014 [facility] [address] [id number] [address] [place] [address], [place] [address] Oct, 2014 [facility] [address] [id number] [address] [place] [address], [place] [address] Oct, [facility] [address] [id number] [address] [place] [address], [place] [address] Oct, [facility] [address] [id number] [address] [place] [address], [place] [address] Oct, [facility] [address] [id number] [address] [place] [address], [place] [address] Oct, [facility] [address] [id number] [address] [place] [address], [place] [address] Sep, [facility] [address] [id number] [address] [place] [address], [place] [address] Sep, [facility] [address] [id number] [address] [place] [address], [place] [address] Sep, [facility] [address] [id number] [address] [place] [address], [place] [address] Sep, [facility] [address] [id number] [address] [place] [address], [place] [address] Sep, [facility] [address] [id number] [address] [place] [address], [place] [address] Sep, [facility] [address] [id number] [address] [place] [address], [place] [address] Sep, [facility] [address] [id number] [address] [place] [address], [place] [address] Sep, [facility] [address] [id number] [address] [place] [address], [place] [address] Sep, [facility] [address] [id number] [address] [place] [address], [place] [address] Sep, [facility] [address] [id number] [address] [place] [address], [place] [address] Aug, [facility] [address] [id number] [address] [place] [address], [place] [address] Aug, [facility] [address] [id number] [address] [place] [address], [place] [address] Aug, [facility] [address] [id number] [address] [place] [address], [place] [address] Aug, [facility] [address] [id number] [address] [place] [address], [place] [address] Aug, [facility] [address] [id number] [address] [place] [address], [place] [address] Aug, [facility] [address] [id number] [address] [place] [address], [place] [address] Aug, [facility] [address] [id number] [address] [place] [address], [place] [address] Aug, [facility] [address] [id number] [address] [place] [address], [place] [address] Jul, [facility] [address] [id number] [address] [place] [address], [place] [address] Jul, [facility] [address] [id number] [address] [place] [address], [place] [address] Jul, [facility] [address] [id number] [address] [place] [address], [place] [address] Jul, [facility] [address] [id number] [address] [place] [address], [place] [address] Jul, [facility] [address] [id number] [address] [place] [address], [place] [address] Jul, [facility] [address] [id number] [address] [place] [address], [place] [address] Jul, [facility] [address] [id number] [address] [place] [address], [place] [address] Jul, [facility] [address] [id number] [address] [place] [address], [place] [address] Jul, [facility] [address] [id number] [address] [place] [address], [place] [address] Jun, [facility] [address] [id number] [address] [place] [address], [place] [address] Jun, [facility] [address] [id number] [address] [place] [address], [place] [address] Jun, [facility] [address] [id number] [address] [place] [address], [place] [address] Jun, [facility] [address] [id number] [address] [place] [address], [place] [address] Jun, [facility] [address] [id number] [address] [place] [address], [place] [address] Jun, [facility] [address] [id number] [address] [place] [address], [place] [address] 25 May, 2013 [facility] [address] [id number] [address] [place] [address], [place] [address] 25 Sep, 2013 [facility] [address] [id number] [address] [place] [address], [place] [address] 16 Sep, 2013 [facility] [address] [id number] [address] [place] [address], [place] [address] 16 Sep, 2013 [facility] [address] [id number] [address] [place] [address], [place] [address] 05 Sep, 2013 [facility] [address] [id number] [address] [place] [address], [place] [address] May, [facility] [address] [id number] [address] [place] [address], [place] [address] Apr, [facility] [address] [id number] [address] [place] [address], [place] [address] Apr, [facility] [address] [id number] [address] [place] [address], [place] [address] Apr, [facility] [address] [id number] [address] [place] [address], [place] [address] Apr, [facility] [address] [id number] [address] [place] [address], [place] [address] Apr, [facility] [address] [id number] [address] [place] [address], [place] [address] Apr, [facility] [address] [id number] [address] [place] [address], [place] [address] Mar, [facility] [address] [id number] [address] [place] [address], [place] [address] Mar, [facility] [address] [id number] [address] [place] [address], [place] [address] Mar, [facility] [address] [id number] [address] [place] [address], [place] [address] Mar, [facility] [address] [id number] [address] [place] [address], [place] [address] Mar, [facility] [address] [id number] [address] [place] [address], [place] [address] Mar, [facility] [address] [id number] [address] [place] [address], [place] [address] Mar, [facility] [address] [id number] [address] [place] [address], [place] [address] Mar, [facility] [address] [id number] [address] [place] [address], [place] [address] Mar, [facility] [address] [id number] [address] [place] [address], [place] [address] Mar, 2013 [facility] [address] [id number] [address] [place] [address], [place] [address] Mar, 2013 [facility] [address] [id number] [address] [place] [address], [place] [address] Mar, 2013 [facility] [address] [id number] [address] [place] [address], [place] [address] Mar, 2013 [facility] [address] [id number] [address] [place] [address], [place] [address] Mar, 2013 [facility] [address] [id number] [address] [place] [address], [place] [address] Mar, 2013 [facility] [address] [id number] [address] [place] [address], [place] [address] Mar, 2013 [facility] [address] [id number] [address] [place] [address], [place] [address] Feb, [facility] [address] [id number] [address] [place] [address], [place] [address] 30 Feb, 2014 [facility] [address] [id number] [address] [place] [address], [place] [address] Feb, [facility] [address] [id number] [address] [place] [address], [place] [address] Feb, [facility] [address] [id number] [address] [place] [address], [place] [address] Feb, [facility] [address] [id number] [address] [place] [address], [place] [address] 23 Feb, 2014 [facility] [address] [id number] [address] [place] [address], [place] [address] 20 Feb, 2014 [facility] [address] [id number] [address] [place] [address], [place] [address] 16 Feb, 2014 [facility] [address] [id number] [address] [place] [address], [place] [address] Feb, [facility] [address] [id number] [facility] [place] [address] Feb, [facility] [address] [id number] [facility] [place] [address] Feb, [facility] [address] [id number] [facility] [place] [address] Feb, [facility] [address] [id number] [address] [place] [address], [place] [address] Feb, [facility] [address] [id number] [facility] [place] [address] January, [facility] [address] [id number] [address] [place] [address], [place] [address] January, [facility] [address] [id number] [address] [place] [address], [place] [address] January, [facility] [address] [id number] [address] [place] [address], [place] [address] January, [facility] [address] [id number] [address] [place] [address], [place] [address] January, [facility] [address] [id number] [address] [place] [address], [place] [address] January, [facility] [address] [id number] [address] [place] [address], [place] [address] January, [facility] [address] [id number] [address] [place] [address], [place] [address] January, [facility] [address] [id number] [address] [place] [address], [place] [address] January, [facility] [address] [id number] [address] [place] [address], [place] [address] January, [facility] [address] [id number] [address] [place] [address], [place] [address] January, [facility] [address] [id number] [address] [place] [address], [place] [address] January, [facility] [address] [id number] [address] [place] [address] January, [facility] [address] [id number] [address] [place] [address], [place] [address] January, [facility] [address] [id number] [address] [place] [address], [place] [address] Dec, [facility] [address] [id number] [address] [place] [address], [place] [address] Dec, [facility] [address] [id number] [address] [place] [address], [place] [address] Dec, [facility] [address] [id number] [address] [place] [address], [place] [address] Dec, [facility] [address] [id number] [address] [place] [address], [place] [address] Dec, [facility] [address] [id number] [address] [place] [address], [place] [address] Dec, [facility] [address] [id number] [address] [place] [address], [place] [address] Dec, [facility] [address] [id number] [address] [place] [address], [place] [address] Dec, [facility] [address] [id number] [address] [place] [address], [place] [address] Nov, [facility] [address] [id number] [address] [place] [address], [place] [address] Nov, [facility] [address] [id number] [address] [place] [address], [place] [address] Nov, [facility] [address] [id number] [address] [place] [address], [place] [address] Nov, [facility] [address] [id number] [address] [place] [address], [place] [address] Oct, [facility] [address] [id number] [address] [place] [address], [place] [address] Oct, [facility] [address] [id number] [address] [place] [address], [place] [address] Oct, [facility] [address] [id number] [address] [place] [address], [place] [address] Oct, [facility] [address] [id number] [address] [place] [address], [place] [address] Oct, [facility] [address] [id number] [address] [place] [address], [place] [address] Oct, [facility] [address] [id number] [address] [place] [address], [place] [address] Sep, [facility] [address] [id number] [address] [place] [place] [address], [place] [address] Sep, [facility] [address] [id number] [address] [place] [address], [place] [address] Sep, [facility] [address] [id number] [address] [place] [address], [place] [address] Sep, [facility] [address] [id number] [address] [place] [address], [place] [address] Sep, [facility] [address] [id number] [address] [place] [address], [place] [address] Sep, [facility] [address] [id number] [address] [place] [address], [place] [address] Sep, [facility] [address] [id number] [address] [place] [address], [place] [address] Sep, [facility] [address] [id number] [address] [place] [address], [place] [address] Sep, [facility] [address] [id number] [address] [place] [address], [place] [address] Sep, [facility] [address] [id number] [address] [place] [address], [place] [address] Aug, [facility] [address] [id number] [address] [place] [address], [place] [address] Aug, [facility] [address] [id number] [address] [place] [address], [place] [address] Aug, [facility] [address] [id number] [address] [place] [address], [place] [address] Aug, [facility] [address] [id number] [address] [place] [address], [place] [address] Aug, [facility] [address] [id number] [address] [place] [address], [place] [address] Aug, [facility] [address] [id number] [address] [place] [address], [place] [address] Aug, [facility] [address] [id number] [address] [place] [address], [place] [address] Aug, [facility] [address] [id number] [address] [place] [address], [place] [address] Jul, [facility] [address] [id number] [address] [place] [address], [place] [address] Jul, [facility] [address] [id number] [address] [place] [id number] Jul, [facility] [address] [id number] [address] [place] [id number] Jul, [facility] [address] [id number] [address] [place] [id number] Jul, [facility] [address] [id number] [address] [place] [id number] Jul, [facility] [address] [id number] [address] [place] [id number] Jul, [facility] [address] [id number] [address] [place] [id number] Jul, [facility] [address] [id number] [address] [place] [id number] Jul, [facility] [address] [id number] [address] [place] [address], [place] [address] Jul, [facility] [address] [id number] [address] [place] [id number] Jul, [facility] [address] [id number] [address] [place] [address], [place] [address] Jul, [facility] [address] [id number] [address] [place] [address], [place] [address] 30 Jun, 2013 [facility] [address] [id number] [address] [place] [address], [place] [address] 30 Jun, 2013 [facility] [address] [id number] [address] [place] [address], [place] [address] 29 Jun, 2013 [facility] [address] [id number] [address] [place] [id number] Jun, [facility] [address] [id number] [address] [place] [address], [place] [address] Jun, [facility] [address] [id number] [address] [place] [address], [place] [address] Jun, [facility] [address] [id number] [address] [place] [id number] 16 Jun, 2013 [facility] [address] [id number] [address] [place] [id number] 02 Jun, 2013 [facility] [address] [id number] [address] [place] [id number] 25 May, 2012 [facility] [address] [id number] [address] [place] [address], [place] [address] 18 Sep, 2012 [facility] [address] [id number] [address] [place] [id number] 11 May, 2012 [facility] [address] [id number] [address] [place] [id number] 10 May, 2012 [facility] [address] [id number] [facility] [place] [address] May, [facility] [address] [id number] [address] [place] [address], [place] [address] May, [facility] [address] [id number] [address] [place] [address], [place] [address] Apr, [facility] [address] [id number] [address] [place] [address], [place] [address] Apr, [facility] [address] [id number] [address] [place] [address], [place] [address] Apr, [facility] [address] [id number] [address] [place] [address], [place] [address] Apr, [facility] [address] [id number] [address] [place] [address], [place] [address] Apr, [facility] [address] [id number] [address] [place] [address], [place] [address] Mar, [facility] [address] [id number] [address] [place] [address], [place] [address] Mar, [facility] [address] [id number] [address] [place] [address], [place] [address] Mar, [facility] [address] [id number] [address] [place] [address], [place] [address] Feb, [facility] [address] [id number] [address] [place] [address], [place] [address] Feb, [facility] [address] [id number] [address] [place] [address], [place] [address] Feb, [facility] [address] [id number] [address] [place] [address], [place] [address] January, [facility] [address] [id number] [address] [place] [address], [place] [address] January, [facility] [address] [id number] [address] [place] [address] [address] Dec, [facility] [address] [facility] [id number] [address] [place] [id number] Nov, [facility] [address] [facility] [id number] [address] [place] [id number] Nov, IMMUNIZATIONS No Known Immunizations SOCIAL HISTORY Never Assessed REASON FOR VISIT [place] [place] VITAL SIGNS MEDICATIONS No [...]
--- OUTSIDE RECORDS SUMMARY | 2019-12-04 12:01 | XMS REPORT ---
Author Author Shireen Moyer Doctor Organization [facility] Address Unknown Phone Unavailable Care Team Providers Care Building Cleaner Name Role Phone Migration, Doctor Unavailable Unavailable PROBLEMS Type Condition ICD9-CM Code JNP19-VY Code Onset Dates Condition S tatus SNOMED Code Problem Bipolar disorder, current episode depressed, moderate F31.32 Active 997942374 Problem Anorexia nervosa F50.00 Active 568 50392 Problem Personality disorder, unspecified F60.9 Active 08153432 Problem Post-traumatic stress disorder, chronic F43.12 Active [id number] ALLERGIES No Information ENCOUNTERS Encounter Location Date Diagnosis [place] [address] [address] Jul, Bipolar disorder, current ep isode depressed, moderate F31.32 and Anorexia nervosa F50.00 [place] [address] [place] [id number] [place] [address] Jul, [place] [address] [address] [place] [id number] [address] [place] [address] Jul, [facility] [address] [place] [id number] [place] [address] Jul, [facility] [address] [place] [id number] [place] [address] Jun, Bipolar disorder, current ep isode depressed, moderate F31.32 ; Post-traumatic stress disorder, chronic F43.12 and Eating disorder, unspecified F50.9 [facility] [address] [facility] [id number] [address] [place] [address] May, [facility] [address] [place] [id number] [address] [place] [address] Apr, Bipolar disorder, current ep isode depressed, moderate F31.32 ; Post-traumatic stress disorder, chronic F43.12 and Eating disorder, unspecified F50.9 [facility] [address] [id number] [address] [place] [address] 14 Feb, 2016 Bipolar disorder, current ep isode depressed, moderate F31.32 ; Post-traumatic stress disorder, chronic F43.12 and Personality disorder, unspecified F60.9 [facility] [address] [id number] [address] [place] [address] 14 Feb, 2016 Bipolar II disorder F31.81 [facility] [address] [id number] [address] [place] [address] Dec, Bipolar disorder, current ep isode depressed, moderate F31.32 ; Post-traumatic stress disorder, chronic F43.12 and Personality disorder, unspecified F60.9 [place] [address] [id number] [address] [place] [address] Dec, Bipolar disorder, current ep isode depressed, moderate F31.32 ; Post-traumatic stress disorder, chronic F43.12 and Personality disorder, unspecified F60.9 [place] [address] [id number] [address] [place] [address] Dec, [facility] [address] [id number] [address] [place] [address] Dec, [place] [address] [facility] [id number] [address] [place] [address] Dec, Bipolar disorder, current ep isode depressed, moderate F31.32 ; Post-traumatic stress disorder, chronic F43.12 and Personality disorder, unspecified F60.9 [place] [address] [id number] [address] [place] [address] Nov, [facility] [address] [id number] [address] [place] [address] Nov, Bipolar disorder, current ep isode depressed, moderate F31.32 ; Post-traumatic stress disorder, chronic F43.12 and Personality disorder, unspecified F60.9 [facility] [address] [id number] [address] [place] [address] Nov, Bipolar disorder, current ep isode depressed, moderate F31.32 ; Post-traumatic stress disorder, chronic F43.12 and Personality disorder, unspecified F60.9 [place] [address] [id number] [address] [place] [address] Oct, [facility] [address] [id number] [address] [place], [place] [address] Oct, Bipolar disorder, current ep isode depressed, moderate F31.32 ; Post-traumatic stress disorder, chronic F43.12 and Personality disorder, unspecified F60.9 [place] [address] [address] [facility] [id number] [address] [place] [address] Oct, Bipolar disorder, current ep isode depressed, moderate F31.32 ; Post-traumatic stress disorder, chronic F43.12 and Personality disorder, unspecified F60.9 [place] [address] [address] [facility] [id number] [address] [place] [address] Aug, Bipolar II disorder F31.81 a nd Post-traumatic stress disorder, unspecified F43.10 [place] [address] [address] [facility] [id number] [address] [place] [address] Aug, Bipolar disorder, current ep isode depressed, moderate F31.32 ; Post-traumatic stress disorder, chronic F43.12 and Personality disorder, unspecified F60.9 [place] [address] [address] [facility] [id number] [address] [place] [address] Jul, Bipolar disorder, unspecifie d 296.80 and Posttraumatic stress disorder 309.81 [facility] [address] [id number] [address] [place] [address] Jul, Post-traumatic stress disord er, chronic F43.12 ; Personality disorder, unspecified F60.9 and Bipolar disorder, current episode depressed, moderate F31.32 [facility] [address] [id number] [address] [place] [address] Jun, Bipolar disorder, unspecifie d 296.80 and Posttraumatic stress disorder 309.81 [facility] [address] [id number] [address] [place] [address] Jun, Bipolar disorder, unspecifie d 296.80 and Posttraumatic stress disorder 309.81 [facility] [address] [id number] [address] [place] [address] Jun, Posttraumatic stress disorde r 309.81 and Bipolar disorder, unspecified 296.80 [facility] [address] [id number] [address] [place] [address] May, Bipolar II disorder 296.89 a nd Post traumatic stress disorder 309.81 [facility] [address] [id number] [address] [place] [address] May, Bipolar II disorder 296.89 a nd Post traumatic stress disorder 309.81 [facility] [address] [facility] [id number] [address] [place] [address] May, [facility] [address] [id number] [address] [place] [address] May, [facility] [address] [facility] [id number] [address] [place] [address] May, [facility] [address] [facility] [id number] [address] [place] [address] May, [facility] [address] [facility] [id number] [address] [place] [address] May, Bipolar II disorder 296.89 a nd Post traumatic stress disorder 309.81 [facility] [address] [id number] [address] [place] [address] May, Bipolar I disorder, most rec ent episode (or current) depressed, moderate 296.52 ; Posttraumatic stress disorder 309.81 and Anxiety state, unspecified 300.00 [facility] [address] [id number] [address] [place] [address] Apr, Bipolar II disorder 296.89 a nd Post traumatic stress disorder 309.81 [facility] [address] [facility] [id number] [address] [place] [address] Apr, [facility] [address] [id number] [address] [place] [address] Apr, Bipolar II disorder 296.89 a nd Post traumatic stress disorder 309.81 [facility] [address] [id number] [address] [place] [address] Apr, Bipolar II disorder 296.89 a nd Post traumatic stress disorder 309.81 [facility] [address] [id number] [address] [place] [address] Mar, Bipolar II disorder 296.89 a nd Post traumatic stress disorder 309.81 [facility] [address] [id number] [address] [place] [address] Mar, [facility] [address] [facility] [id number] [address] [place] [address] Mar, Bipolar II disorder 296.89 a nd Post traumatic stress disorder 309.81 [facility] [address] [id number] [address] [place] [address] Mar, Bipolar II disorder 296.89 a nd Post traumatic stress disorder 309.81 [facility] [address] [id number] [address] [place] [address] Mar, Bipolar II disorder 296.89 a nd Post traumatic stress disorder 309.81 [facility] [address] [id number] [address] [place] [address] Mar, [facility] [address] [id number] [address] [place] [address] Mar, Bipolar II disorder 296.89 a nd Post traumatic stress disorder 309.81 [facility] [address] [id number] [address] [place] [address] Feb, Bipolar II disorder 296.89 a nd Post traumatic stress disorder 309.81 [facility] [address] [id number] [address] [place] [address] Feb, [facility] [address] [id number] [address] [place] [address] Feb, Bipolar disorder, unspecifie d 296.80 and Anxiety state, unspecified 300.00 [facility] [address] [id number] [address] [place] [address] Feb, [facility] [address] [id number] [address] [place] [address] Feb, [facility] [address] [id number] [address] [place] [address] January, [facility] [address] [id number] [address] [place] [address] Dec, [facility] [address] [id number] [address] [place] [address] Dec, [facility] [address] [id number] [address] [place] [address] Nov, [facility] [address] [id number] [address] [place] [address] Nov, [facility] [address] [id number] [address] [place] [address] Nov, [facility] [address] [id number] [address] [place] [address] Nov, [facility] [address] [id number] [address] [place] [address] Nov, [facility] [address] [id number] [address] [place] [address] Nov, [facility] [address] [id number] [address] [place] [address] Nov, [facility] [address] [id number] [address] [place] [address] Nov, [facility] [address] [id number] [address] [place] [address] Nov, [facility] [address] [id number] [address] [place] [address], [place] [address] Oct, [facility] [address] [id number] [address] [place] [address], [place] [address] Oct, [facility] [address] [id number] [address] [place] [address], [place] [address] Oct, 2014 [facility] [address] [id number] [address] [place] [address], [place] [address] Oct, 2014 [facility] [address] [id number] [address] [place] [address], [place] [address] Oct, [facility] [address] [id number] [address] [place] [address], [place] [address] Oct, [facility] [address] [id number] [address] [place] [address], [place] [address] Oct, [facility] [address] [id number] [address] [place] [address], [place] [address] Oct, [facility] [address] [id number] [address] [place] [address], [place] [address] Sep, [facility] [address] [id number] [address] [place] [address], [place] [address] Sep, [facility] [address] [id number] [address] [place] [address], [place] [address] Sep, [facility] [address] [id number] [address] [place] [address], [place] [address] Sep, [facility] [address] [id number] [address] [place] [address], [place] [address] Sep, [facility] [address] [id number] [address] [place] [address], [place] [address] Sep, [facility] [address] [id number] [address] [place] [address], [place] [address] Sep, [facility] [address] [id number] [address] [place] [address], [place] [address] Sep, [facility] [address] [id number] [address] [place] [address], [place] [address] Sep, [facility] [address] [id number] [address] [place] [address], [place] [address] Sep, [facility] [address] [id number] [address] [place] [address], [place] [address] Aug, [facility] [address] [id number] [address] [place] [address], [place] [address] Aug, [facility] [address] [id number] [address] [place] [address], [place] [address] Aug, [facility] [address] [id number] [address] [place] [address], [place] [address] Aug, [facility] [address] [id number] [address] [place] [address], [place] [address] Aug, [facility] [address] [id number] [address] [place] [address], [place] [address] Aug, [facility] [address] [id number] [address] [place] [address], [place] [address] Aug, [facility] [address] [id number] [address] [place] [address], [place] [address] Aug, [facility] [address] [id number] [address] [place] [address], [place] [address] Jul, [facility] [address] [id number] [address] [place] [address], [place] [address] Jul, [facility] [address] [id number] [address] [place] [address], [place] [address] Jul, [facility] [address] [id number] [address] [place] [address], [place] [address] Jul, [facility] [address] [id number] [address] [place] [address], [place] [address] Jul, [facility] [address] [id number] [address] [place] [address], [place] [address] Jul, [facility] [address] [id number] [address] [place] [address], [place] [address] Jul, [facility] [address] [id number] [address] [place] [address], [place] [address] Jul, [facility] [address] [id number] [address] [place] [address], [place] [address] Jul, [facility] [address] [id number] [address] [place] [address], [place] [address] Jun, [facility] [address] [id number] [address] [place] [address], [place] [address] Jun, [facility] [address] [id number] [address] [place] [address], [place] [address] Jun, [facility] [address] [id number] [address] [place] [address], [place] [address] Jun, [facility] [address] [id number] [address] [place] [address], [place] [address] Jun, [facility] [address] [id number] [address] [place] [address], [place] [address] Jun, [facility] [address] [id number] [address] [place] [address], [place] [address] 25 May, 2013 [facility] [address] [id number] [address] [place] [address], [place] [address] 25 Sep, 2013 [facility] [address] [id number] [address] [place] [address], [place] [address] 16 Sep, 2013 [facility] [address] [id number] [address] [place] [address], [place] [address] 16 Sep, 2013 [facility] [address] [id number] [address] [place] [address], [place] [address] 05 Sep, 2013 [facility] [address] [id number] [address] [place] [address], [place] [address] May, [facility] [address] [id number] [address] [place] [address], [place] [address] Apr, [facility] [address] [id number] [address] [place] [address], [place] [address] Apr, [facility] [address] [id number] [address] [place] [address], [place] [address] Apr, [facility] [address] [id number] [address] [place] [address], [place] [address] Apr, [facility] [address] [id number] [address] [place] [address], [place] [address] Apr, [facility] [address] [id number] [address] [place] [address], [place] [address] Apr, [facility] [address] [id number] [address] [place] [address], [place] [address] Mar, [facility] [address] [id number] [address] [place] [address], [place] [address] Mar, [facility] [address] [id number] [address] [place] [address], [place] [address] Mar, [facility] [address] [id number] [address] [place] [address], [place] [address] Mar, [facility] [address] [id number] [address] [place] [address], [place] [address] Mar, [facility] [address] [id number] [address] [place] [address], [place] [address] Mar, [facility] [address] [id number] [address] [place] [address], [place] [address] Mar, [facility] [address] [id number] [address] [place] [address], [place] [address] Mar, [facility] [address] [id number] [address] [place] [address], [place] [address] Mar, [facility] [address] [id number] [address] [place] [address], [place] [address] Mar, 2013 [facility] [address] [id number] [address] [place] [address], [place] [address] Mar, 2013 [facility] [address] [id number] [address] [place] [address], [place] [address] Mar, 2013 [facility] [address] [id number] [address] [place] [address], [place] [address] Mar, 2013 [facility] [address] [id number] [address] [place] [address], [place] [address] Mar, 2013 [facility] [address] [id number] [address] [place] [address], [place] [address] Mar, 2013 [facility] [address] [id number] [address] [place] [address], [place] [address] Mar, 2013 [facility] [address] [id number] [address] [place] [address], [place] [address] Feb, [facility] [address] [id number] [address] [place] [address], [place] [address] 30 Feb, 2014 [facility] [address] [id number] [address] [place] [address], [place] [address] Feb, [facility] [address] [id number] [address] [place] [address], [place] [address] Feb, [facility] [address] [id number] [address] [place] [address], [place] [address] Feb, [facility] [address] [id number] [address] [place] [address], [place] [address] 23 Feb, 2014 [facility] [address] [id number] [address] [place] [address], [place] [address] 20 Feb, 2014 [facility] [address] [id number] [address] [place] [address], [place] [address] 16 Feb, 2014 [facility] [address] [id number] [address] [place] [address], [place] [address] Feb, [facility] [address] [id number] [facility] [place] [address] Feb, [facility] [address] [id number] [facility] [place] [address] Feb, [facility] [address] [id number] [facility] [address] Feb, [facility] [address] [id number] [address] [place] [address], [place] [address] Feb, [facility] [address] [id number] [facility] [address] January, [facility] [address] [id number] [address] [place] [address], [place] [address] January, [facility] [address] [id number] [address] [place] [address], [place] [address] January, [facility] [address] [id number] [address] [place] [address], [place] [address] January, [facility] [address] [id number] [address] [place] [address], [place] [address] January, [facility] [address] [id number] [address] [place] [address], [place] [address] January, [facility] [address] [id number] [address] [place] [address], [place] [address] January, [facility] [address] [id number] [address] [place] [address], [place] [address] January, [facility] [address] [id number] [address] [place] [address], [place] [address] January, [facility] [address] [id number] [address] [place] [address], [place] [address] January, [facility] [address] [id number] [address] [place] [address], [place] [address] January, [facility] [address] [id number] [address] [place] [address], [place] [address] January, [facility] [address] [id number] [facility] [place] [address] January, [facility] [address] [id number] [address] [place] [address], [place] [address] January, [facility] [address] [id number] [address] [place] [address], [place] [address] Dec, [facility] [address] [id number] [address] [place] [address], [place] [address] Dec, [facility] [address] [id number] [address] [place] [address], [place] [address] Dec, [facility] [address] [id number] [address] [place] [address], [place] [address] Dec, [facility] [address] [id number] [address] [place] [address], [place] [address] Dec, [facility] [address] [id number] [address] [place] [address], [place] [address] Dec, [facility] [address] [id number] [address] [place] [address], [place] [address] Dec, [facility] [address] [id number] [address] [place] [address], [place] [address] Dec, [facility] [address] [id number] [address] [place] [address], [place] [address] Nov, [facility] [address] [id number] [address] [place] [address], [place] [address] Nov, [facility] [address] [id number] [address] [place] [address], [place] [address] Nov, [facility] [address] [id number] [address] [place] [address], [place] [address] Nov, [facility] [address] [id number] [address] [place] [address], [place] [address] Oct, [facility] [address] [id number] [address] [place] [address], [place] [address] Oct, [facility] [address] [id number] [address] [place] [address], [place] [address] Oct, [facility] [address] [id number] [address] [place] [address], [place] [address] Oct, [facility] [address] [id number] [address] [place] [address], [place] [address] Oct, [facility] [address] [id number] [address] [place] [address], [place] [address] Oct, [facility] [address] [id number] [address] [place] [address], [place] [address] Sep, [facility] [address] [id number] [address] [place] [address], [place] [address] Sep, [facility] [address] [id number] [address] [place] [address], [place] [address] Sep, [facility] [address] [id number] [address] [place] [address], [place] [address] Sep, [facility] [address] [id number] [address] [place] [address], [place] [address] Sep, [facility] [address] [id number] [address] [place] [address], [place] [address] Sep, [facility] [address] [id number] [address] [place] [address], [place] [address] Sep, [facility] [address] [id number] [address] [place] [address], [place] [address] Sep, [facility] [address] [id number] [address] [place] [address], [place] [address] Sep, [facility] [address] [id number] [address] [place] [address], [place] [address] Sep, [facility] [address] [id number] [address] [place] [address], [place] [address] Aug, [facility] [address] [id number] [address] [place] [address], [place] [address] Aug, [facility] [address] [id number] [address] [place] [address], [place] [address] Aug, [facility] [address] [id number] [address] [place] [address], [place] [address] Aug, [facility] [address] [id number] [address] [place] [address], [place] [address] Aug, [facility] [address] [id number] [address] [place] [address], [place] [address] Aug, [facility] [address] [id number] [address] [place] [address], [place] [address] Aug, [facility] [address] [id number] [address] [place] [address], [place] [address] Aug, [facility] [address] [id number] [address] [place] [address], [place] [address] Jul, [facility] [address] [id number] [address] [place] [address], [place] [address] Jul, [facility] [address] [id number] [address] [place] [address] Jul, [facility] [address] [id number] [address] [place] [address] Jul, [facility] [address] [id number] [address] [place] [address] Jul, [facility] [address] [id number] [address] [place] [address] Jul, [facility] [address] [id number] [address] [place] [address] Jul, [facility] [address] [id number] [address] [place] [address] Jul, [facility] [address] [id number] [address] [place] [address] Jul, [facility] [address] [id number] [address] [place] [address], [place] [address] Jul, [facility] [address] [id number] [address] [place] [address] Jul, [facility] [address] [id number] [address] [place] [address], [place] [address] Jul, [facility] [address] [id number] [address] [place] [address], [place] [address] 30 Jun, 2013 [facility] [address] [id number] [address] [place] [address], [place] [address] 30 Jun, 2013 [facility] [address] [id number] [address] [place] [address], [place] [address] 29 Jun, 2013 [facility] [address] [id number] [address] [place] [address] Jun, [facility] [address] [id number] [address] [place] [address], [place] [address] Jun, [facility] [address] [id number] [address] [place] [address], [place] [address] Jun, [facility] [address] [id number] [address] [place] [address] 16 Jun, 2013 [facility] [address] [id number] [address] [place] [address] 02 Jun, 2013 [facility] [address] [id number] [address] [place] [address] 25 May, 2012 [facility] [address] [id number] [address] [place] [address], [place] [address] 18 Sep, 2012 [facility] [address] [id number] [address] [place] [address] 11 May, 2012 [facility] [address] [id number] [address] [place] [address] 10 May, 2012 [facility] [address] [id number] [facility] [place] [address] May, [facility] [address] [id number] [address] [place] [address], [place] [address] May, [facility] [address] [id number] [address] [place] [address], [place] [address] Apr, [facility] [address] [id number] [address] [place] [address], [place] [address] Apr, [facility] [address] [id number] [address] [place] [address], [place] [address] Apr, [facility] [address] [id number] [address] [place] [address], [place] [address] Apr, [facility] [address] [id number] [address] [place] [address], [place] [address] Apr, [facility] [address] [id number] [address] [place] [address], [place] [address] Mar, [facility] [address] [id number] [address] [place] [address], [place] [address] Mar, [facility] [address] [id number] [address] [place] [address], [place] [address] Mar, [facility] [address] [id number] [address] [place] [address], [place] [address] Feb, [facility] [address] [id number] [address] [place] [address], [place] [address] Feb, [facility] [address] [id number] [address] [place] [address], [place] [address] Feb, [facility] [address] [id number] [address] [place] [address], [place] [address] January, [facility] [address] [id number] [address] [place] [address], [place] [address] January, [facility] [address] [id number] [address] [place] [address] [address] Dec, [facility] [address] [facility] [id number] [address] [place] [address] Nov, [facility] [address] [facility] [id number] [address] [place] [address] Nov, IMMUNIZATIONS No Known Immunizations SOCIAL HISTORY Never Assessed REASON FOR VISIT EMR-[facility] PLAN OF CARE VITAL SIGNS [...]
--- OUTSIDE RECORDS SUMMARY | 2019-12-04 12:01 | XMS REPORT ---
Author Author Shireen Moyer Doctor Organization [facility] Address Unknown Phone Unavailable Care Team Providers Care Wealth Management Advisor Name Role Phone Migration, Doctor Unavailable Unavailable PROBLEMS Type Condition ICD9-CM Code [id number] Code Onset Dates Condition S tatus SNOMED Code Problem Bipolar disorder, current episode depressed, moderate F31.32 Active 814809377 Problem Anorexia nervosa F50.00 Active 568 05531 Problem Personality disorder, unspecified F60.9 Active 25065067 Problem Post-traumatic stress disorder, chronic F43.12 Active [id number] ALLERGIES No Information ENCOUNTERS Encounter Location Date Diagnosis [place] [address] [address] Jul, Bipolar disorder, current ep isode depressed, moderate F31.32 and Anorexia nervosa F50.00 [place] [place] [id number] [place] [id number] Jul, [place] [address] [place] [id number] [address] [place] [id number] Jul, [facility] [address] [place] [id number] [place] [id number] Jul, [facility] [address] [place] [id number] [place] [id number] Jun, Bipolar disorder, current ep isode depressed, moderate F31.32 ; Post-traumatic stress disorder, chronic F43.12 and Eating disorder, unspecified F50.9 [facility] [address] [facility] [id number] [address] [place] [id number] May, [facility] [address] [place] [id number] [address] [place] [id number] Apr, Bipolar disorder, current ep isode depressed, moderate F31.32 ; Post-traumatic stress disorder, chronic F43.12 and Eating disorder, unspecified F50.9 [facility] [address] [id number] [address] [place] [id number] 14 Feb, 2016 Bipolar disorder, current ep isode depressed, moderate F31.32 ; Post-traumatic stress disorder, chronic F43.12 and Personality disorder, unspecified F60.9 [facility] [address] [id number] [address] [place] [id number] 14 Feb, 2016 Bipolar II disorder F31.81 [facility] [address] [id number] [address] [place] [id number] Dec, Bipolar disorder, current ep isode depressed, moderate F31.32 ; Post-traumatic stress disorder, chronic F43.12 and Personality disorder, unspecified F60.9 [place] [address] [id number] [address] [place] [id number] Dec, Bipolar disorder, current ep isode depressed, moderate F31.32 ; Post-traumatic stress disorder, chronic F43.12 and Personality disorder, unspecified F60.9 [place] [address] [id number] [address] [place] [id number] Dec, [facility] [address] [id number] [address] [place] [id number] Dec, [place] [address] [facility] [id number] [address] [place] [id number] Dec, Bipolar disorder, current ep isode depressed, moderate F31.32 ; Post-traumatic stress disorder, chronic F43.12 and Personality disorder, unspecified F60.9 [place] [address] [id number] [address] [place] [id number] Nov, [facility] [address] [id number] [address] [place] [address] Nov, Bipolar disorder, current ep isode depressed, moderate F31.32 ; Post-traumatic stress disorder, chronic F43.12 and Personality disorder, unspecified F60.9 [facility] [address] [id number] [address] [place] [id number] Nov, Bipolar disorder, current ep isode depressed, moderate F31.32 ; Post-traumatic stress disorder, chronic F43.12 and Personality disorder, unspecified F60.9 [place] [address] [id number] [address] [place] [id number] Oct, [facility] [address] [id number] [address] [place] [address] Oct, Bipolar disorder, current ep isode depressed, moderate F31.32 ; Post-traumatic stress disorder, chronic F43.12 and Personality disorder, unspecified F60.9 [place] [address] [facility] [id number] [address] [place] [address] Oct, Bipolar disorder, current ep isode depressed, moderate F31.32 ; Post-traumatic stress disorder, chronic F43.12 and Personality disorder, unspecified F60.9 [place] [address] [facility] [id number] [address] [place] [address] Aug, Bipolar II disorder F31.81 a nd Post-traumatic stress disorder, unspecified F43.10 [place] [address] [facility] [id number] [address] [place] [id number] Aug, Bipolar disorder, current ep isode depressed, moderate F31.32 ; Post-traumatic stress disorder, chronic F43.12 and Personality disorder, unspecified F60.9 [place] [address] [facility] [id number] [address] [place] [id number] Jul, Bipolar disorder, unspecifie d 296.80 and Posttraumatic stress disorder 309.81 [facility] [address] [id number] [address] [place] [address] Jul, Post-traumatic stress disord er, chronic F43.12 ; Personality disorder, unspecified F60.9 and Bipolar disorder, current episode depressed, moderate F31.32 [facility] [address] [id number] [address] [place] [id number] Jun, Bipolar disorder, unspecifie d 296.80 and Posttraumatic stress disorder 309.81 [facility] [address] [id number] [address] [place] [id number] Jun, Bipolar disorder, unspecifie d 296.80 and Posttraumatic stress disorder 309.81 [facility] [address] [id number] [address] [place] [id number] Jun, Posttraumatic stress disorde r 309.81 and Bipolar disorder, unspecified 296.80 [facility] [address] [id number] [address] [place] [id number] May, Bipolar II disorder 296.89 a nd Post traumatic stress disorder 309.81 [facility] [address] [id number] [address] [place] [address] May, Bipolar II disorder 296.89 a nd Post traumatic stress disorder 309.81 [facility] [address] [facility] [id number] [address] [place] [id number] May, [facility] [address] [id number] [address] [place] [id number] May, [facility] [address] [facility] [id number] [address] [place] [phone] May, [facility] [address] [facility] [id number] [address] [place] [id number] May, [facility] [address] [facility] [id number] [address] [place] [address] May, Bipolar II disorder 296.89 a nd Post traumatic stress disorder 309.81 [facility] [address] [id number] [address] [place] [address] May, Bipolar I disorder, most rec ent episode (or current) depressed, moderate 296.52 ; Posttraumatic stress disorder 309.81 and Anxiety state, unspecified 300.00 [facility] [address] [id number] [address] [place] [address] Apr, Bipolar II disorder 296.89 a nd Post traumatic stress disorder 309.81 [facility] [address] [facility] [id number] [address] [place] [id number] Apr, [facility] [address] [id number] [address] [place] [id number] Apr, Bipolar II disorder 296.89 a nd Post traumatic stress disorder 309.81 [facility] [address] [id number] [address] [place] [id number] Apr, Bipolar II disorder 296.89 a nd Post traumatic stress disorder 309.81 [facility] [address] [id number] [address] [place] [address] Mar, Bipolar II disorder 296.89 a nd Post traumatic stress disorder 309.81 [facility] [address] [id number] [address] [place] [id number] Mar, [facility] [address] [facility] [id number] [address] [place] [address] Mar, Bipolar II disorder 296.89 a nd Post traumatic stress disorder 309.81 [facility] [address] [id number] [address] [place] [id number] Mar, Bipolar II disorder 296.89 a nd Post traumatic stress disorder 309.81 [facility] [address] [id number] [address] [place] [address] Mar, Bipolar II disorder 296.89 a nd Post traumatic stress disorder 309.81 [facility] [address] [id number] [address] [place] [id number] Mar, [facility] [address] [id number] [address] [place] [phone] Mar, Bipolar II disorder 296.89 a nd Post traumatic stress disorder 309.81 [facility] [address] [id number] [address] [place] [address] Feb, Bipolar II disorder 296.89 a nd Post traumatic stress disorder 309.81 [facility] [address] [id number] [address] [place] [id number] Feb, [facility] [address] [id number] [address] [place] [id number] Feb, Bipolar disorder, unspecifie d 296.80 and Anxiety state, unspecified 300.00 [facility] [address] [id number] [address] [place] [id number] Feb, [facility] [address] [id number] [address] [place] [id number] Feb, [facility] [address] [id number] [address] [place] [id number] January, [facility] [address] [id number] [address] [place] [id number] Dec, [facility] [address] [id number] [address] [place] [id number] Dec, [facility] [address] [id number] [address] [place] [id number] Nov, [facility] [address] [id number] [address] [place] [id number] Nov, [facility] [address] [id number] [address] [place] [id number] Nov, [facility] [address] [id number] [address] [place] [id number] Nov, [facility] [address] [id number] [address] [place] [id number] Nov, [facility] [address] [id number] [address] [place] [id number] Nov, [facility] [address] [id number] [address] [place] [id number] Nov, [facility] [address] [id number] [address] [place] [id number] Nov, [facility] [address] [id number] [address] [place] [id number] Nov, [facility] [address] [id number] [address] [place] [address], [place] [id number] Oct, [facility] [address] [id number] [address] [place] [address], [place] [address] Oct, [facility] [address] [id number] [address] [place] [address], [place] [address] Oct, 2014 [facility] [address] [id number] [address] [place] [address], [place] [id number] Oct, 2014 [facility] [address] [id number] [address] [place] [address], [place] [address] Oct, [facility] [address] [id number] [address] [place] [address], [place] [address] Oct, [facility] [address] [id number] [address] [place] [address], [place] [id number] Oct, [facility] [address] [id number] [address] [place] [address], [place] [address] Oct, [facility] [address] [id number] [address] [place] [address], [place] [address] Sep, [facility] [address] [id number] [address] [place] [address], [place] [address] Sep, [facility] [address] [id number] [address] [place] [address], [place] [address] Sep, [facility] [address] [id number] [address] [place] [address], [place] [address] Sep, [facility] [address] [id number] [address] [place] [address], [place] [address] Sep, [facility] [address] [id number] [address] [place] [address], [place] [id number] Sep, [facility] [address] [id number] [address] [place] [address], [place] [address] Sep, [facility] [address] [id number] [address] [place] [address], [place] [address] Sep, [facility] [address] [id number] [address] [place] [address], [place] [address] Sep, [facility] [address] [id number] [address] [place] [address], [place] [address] Sep, [facility] [address] [id number] [address] [place] [address], [place] [id number] Aug, [facility] [address] [id number] [address] [place] [address], [place] [address] Aug, [facility] [address] [id number] [address] [place] [address], [place] [address] Aug, [facility] [address] [id number] [address] [place] [address], [place] [id number] Aug, [facility] [address] [id number] [address] [place] [address], [place] [id number] Aug, [facility] [address] [id number] [address] [place] [address], [place] [address] Aug, [facility] [address] [id number] [address] [place] [address], [place] [address] Aug, [facility] [address] [id number] [address] [place] [address], [place] [address] Aug, [facility] [address] [id number] [address] [place] [address], [place] [address] Jul, [facility] [address] [id number] [address] [place] [address], [place] [address] Jul, [facility] [address] [id number] [address] [place] [address], [place] [address] Jul, [facility] [address] [id number] [address] [place] [address], [place] [address] Jul, [facility] [address] [id number] [address] [place] [address], [place] [address] Jul, [facility] [address] [id number] [address] [place] [address], [place] [address] Jul, [facility] [address] [id number] [address] [place] [address], [place] [address] Jul, [facility] [address] [id number] [address] [place] [address], [place] [address] Jul, [facility] [address] [id number] [address] [place] [address], [place] [address] Jul, [facility] [address] [id number] [address] [place] [address], [place] [address] Jun, [facility] [address] [id number] [address] [place] [address], [place] [address] Jun, [facility] [address] [id number] [address] [place] [address], [place] [address] Jun, [facility] [address] [id number] [address] [place] [address], [place] [address] Jun, [facility] [address] [id number] [address] [place] [address], [place] [address] Jun, [facility] [address] [id number] [address] [place] [address], [place] [address] Jun, [facility] [address] [id number] [address] [place] [address], [place] [address] 25 May, 2013 [facility] [address] [id number] [address] [place] [address], [place] [address] 25 Sep, 2013 [facility] [address] [id number] [address] [place] [address], [place] [address] 16 Sep, 2013 [facility] [address] [id number] [address] [place] [address], [place] [address] 16 Sep, 2013 [facility] [address] [id number] [address] [place] [address], [place] [address] 05 Sep, 2013 [facility] [address] [id number] [address] [place] [address], [place] [address] May, [facility] [address] [id number] [address] [place] [address], [place] [address] Apr, [facility] [address] [id number] [address] [place] [address], [place] [address] Apr, [facility] [address] [id number] [address] [place] [address], [place] [address] Apr, [facility] [address] [id number] [address] [place] [address], [place] [address] Apr, [facility] [address] [id number] [address] [place] [address], [place] [address] Apr, [facility] [address] [id number] [address] [place] [address], [place] [address] Apr, [facility] [address] [id number] [address] [place] [address], [place] [address] Mar, [facility] [address] [id number] [address] [place] [address], [place] [address] Mar, [facility] [address] [id number] [address] [place] [address], [place] [address] Mar, [facility] [address] [id number] [address] [place] [address], [place] [address] Mar, [facility] [address] [id number] [address] [place] [address], [place] [address] Mar, [facility] [address] [id number] [address] [place] [address], [place] [address] Mar, [facility] [address] [id number] [address] [place] [address], [place] [address] Mar, [facility] [address] [id number] [address] [place] [address], [place] [address] Mar, [facility] [address] [id number] [address] [place] [address], [place] [address] Mar, [facility] [address] [id number] [address] [place] [address], [place] [address] Mar, 2013 [facility] [address] [id number] [address] [place] [address], [place] [address] Mar, 2013 [facility] [address] [id number] [address] [place] [address], [place] [address] Mar, 2013 [facility] [address] [id number] [address] [place] [address], [place] [address] Mar, 2013 [facility] [address] [id number] [address] [place] [address], [place] [address] Mar, 2013 [facility] [address] [id number] [address] [place] [address], [place] [address] Mar, 2013 [facility] [address] [id number] [address] [place] [address], [place] [address] Mar, 2013 [facility] [address] [id number] [address] [place] [address], [place] [address] Feb, [facility] [address] [id number] [address] [place] [address], [place] [address] 30 Feb, 2014 [facility] [address] [id number] [address] [place] [address], [place] [address] Feb, [facility] [address] [id number] [address] [place] [address], [place] [address] Feb, [facility] [address] [id number] [address] [place] [address], [place] [address] Feb, [facility] [address] [id number] [address] [place] [address], [place] [address] 23 Feb, 2014 [facility] [address] [id number] [address] [place] [address], [place] [address] 20 Feb, 2014 [facility] [address] [id number] [address] [place] [address], [place] [address] 16 Feb, 2014 [facility] [address] [id number] [address] [place] [address], [place] [address] Feb, [facility] [address] [id number] [facility] [place] [address] Feb, [facility] [address] [id number] [facility] [place] [address] Feb, [facility] [address] [id number] [facility] [place] [address] Feb, [facility] [address] [id number] [address] [place] [address], [place] [address] Feb, [facility] [address] [id number] [facility] [place] [address] January, [facility] [address] [id number] [address] [place] [address], [place] [id number] January, [facility] [address] [id number] [address] [place] [address], [place] [id number] January, [facility] [address] [id number] [address] [place] [address], [place] [id number] January, [facility] [address] [id number] [address] [place] [address], [place] [id number] January, [facility] [address] [id number] [address] [place] [address], [place] [id number] January, [facility] [address] [id number] [address] [place] [address], [place] [id number] January, [facility] [address] [id number] [address] [place] [address], [place] [id number] January, [facility] [address] [id number] [address] [place] [address], [place] [id number] January, [facility] [address] [id number] [address] [place] [address], [place] [id number] January, [facility] [address] [id number] [address] [place] [address], [place] [id number] January, [facility] [address] [id number] [address] [place] [address], [place] [id number] January, [facility] [address] [id number] [address] [place] [id number] January, [facility] [address] [id number] [address] [place] [address], [place] [id number] January, [facility] [address] [id number] [address] [place] [address], [place] [id number] Dec, [facility] [address] [id number] [address] [place] [address], [place] [id number] Dec, [facility] [address] [id number] [address] [place] [address], [place] [id number] Dec, [facility] [address] [id number] [address] [place] [address], [place] [id number] Dec, [facility] [address] [id number] [address] [place] [address], [place] [id number] Dec, [facility] [address] [id number] [address] [place] [address], [place] [id number] Dec, [facility] [address] [id number] [address] [place] [address], [place] [id number] Dec, [facility] [address] [id number] [address] [place] [address], [place] [id number] Dec, [facility] [address] [id number] [address] [place] [address], [place] [id number] Nov, [facility] [address] [id number] [address] [place] [address], [place] [id number] Nov, [facility] [address] [id number] [address] [place] [address], [place] [id number] Nov, [facility] [address] [id number] [address] [place] [address], [place] [id number] Nov, [facility] [address] [id number] [address] [place] [address], [place] [id number] Oct, [facility] [address] [id number] [address] [place] [place] [address], [place] [id number] Oct, [facility] [address] [id number] [address] [place] [address], [place] [id number] Oct, [facility] [address] [id number] [address] [place] [address], [place] [id number] Oct, [facility] [address] [id number] [address] [place] [address], [place] [id number] Oct, [facility] [address] [id number] [address] [place] [address], [place] [id number] Oct, [facility] [address] [id number] [address] [place] [address], [place] [id number] Sep, [facility] [address] [id number] [address] [place] [address], [place] [id number] Sep, [facility] [address] [id number] [address] [place] [address], [place] [id number] Sep, [facility] [address] [id number] [address] [place] [address], [place] [id number] Sep, [facility] [address] [id number] [address] [place] [address], [place] [id number] Sep, [facility] [address] [id number] [address] [place] [address], [place] [id number] Sep, [facility] [address] [id number] [address] [place] [address], [place] [id number] Sep, [facility] [address] [id number] [address] [place] [address], [place] [id number] Sep, [facility] [address] [id number] [address] [place] [address], [place] [id number] Sep, [facility] [address] [id number] [address] [place] [address], [place] [id number] Sep, [facility] [address] [id number] [address] [place] [address], [place] [id number] Aug, [facility] [address] [id number] [address] [place] [address], [place] [id number] Aug, [facility] [address] [id number] [address] [place] [address], [place] [id number] Aug, [facility] [address] [id number] [address] [place] [address], [place] [id number] Aug, [facility] [address] [id number] [address] [place] [address], [place] [id number] Aug, [facility] [address] [id number] [address] [place] [address], [place] [id number] Aug, [facility] [address] [id number] [address] [place] [address], [place] [id number] Aug, [facility] [address] [id number] [address] [place] [address], [place] [id number] Aug, [facility] [address] [id number] [address] [place] [address], [place] [id number] Jul, [facility] [address] [id number] [address] [place] [address], [place] [id number] Jul, [facility] [address] [id number] [address] [place] [id number] Jul, [facility] [address] [id number] [address] [place] [id number] Jul, [facility] [address] [id number] [address] [place] [id number] Jul, [facility] [address] [id number] [address] [place] [id number] Jul, [facility] [address] [id number] [address] [place] [id number] Jul, [facility] [address] [id number] [address] [place] [id number] Jul, [facility] [address] [id number] [address] [place] [id number] Jul, [facility] [address] [id number] [address] [place] [address], [place] [id number] Jul, [facility] [address] [id number] [address] [place] [id number] Jul, [facility] [address] [id number] [address] [place] [address], [place] [id number] Jul, [facility] [address] [id number] [address] [place] [address], [place] [id number] 30 Jun, 2013 [facility] [address] [id number] [address] [place] [address], [place] [id number] 30 Jun, 2013 [facility] [address] [id number] [address] [place] [address], [place] [id number] 29 Jun, 2013 [facility] [address] [id number] [address] [place] [id number] Jun, [facility] [address] [id number] [address] [place] [address], [place] [id number] Jun, [facility] [address] [id number] [address] [place] [address], [place] [id number] Jun, [facility] [address] [id number] [address] [place] [id number] 16 Jun, 2013 [facility] [address] [id number] [address] [place] [id number] 02 Jun, 2013 [facility] [address] [id number] [address] [place] [id number] 25 May, 2012 [facility] [address] [id number] [address] [place] [address], [place] [id number] 18 Sep, 2012 [facility] [address] [id number] [address] [place] [id number] 11 May, 2012 [facility] [address] [id number] [address] [place] [id number] 10 May, 2012 [facility] [address] [id number] [facility] [place] [address] May, [facility] [address] [id number] [address] [place] [address], [place] [id number] May, [facility] [address] [id number] [address] [place] [address], [place] [id number] Apr, [facility] [address] [id number] [address] [place] [address], [place] [id number] Apr, [facility] [address] [id number] [address] [place] [address], [place] [id number] Apr, [facility] [address] [id number] [address] [place] [address], [place] [address] Apr, [facility] [address] [id number] [address] [place] [address], [place] [id number] Apr, [facility] [address] [id number] [address] [place] [address], [place] [id number] Mar, [facility] [address] [id number] [address] [place] [address], [place] [id number] Mar, [facility] [address] [id number] [address] [place] [address], [place] [id number] Mar, [facility] [address] [id number] [address] [place] [address], [place] [id number] Feb, [facility] [address] [id number] [address] [place] [address], [place] [id number] Feb, [facility] [address] [id number] [address] [place] [address], [place] [id number] Feb, [facility] [address] [id number] [address] [place] [address], [place] [id number] January, [facility] [address] [id number] [address] [place] [address], [place] [address] January, [facility] [address] [id number] [address] [place] [address] [address] Dec, [facility] [address] [facility] [id number] [address] [place] [id number] Nov, [facility] [address] [facility] [id number] [address] [place] [id number] Nov, IMMUNIZATIONS No Known Immunizations SOCIAL HISTORY Never Assessed REASON FOR VISIT [place] [place] CARE VITAL SIGNS MEDICATIONS No [...]
--- OUTSIDE RECORDS SUMMARY | 2019-12-04 12:01 | XMS REPORT ---
Author Author Shireen Moyer Doctor Organization [facility] Address Unknown Phone Unavailable Care Team Providers Care Contractor General Engineering Name Role Phone Migration, Doctor Unavailable Unavailable PROBLEMS Type Condition ICD9-CM Code [id number] Code Onset Dates Condition S tatus SNOMED Code Problem Bipolar disorder, current episode depressed, moderate F31.32 Active 174216368 Problem Anorexia nervosa F50.00 Active 568 63843 Problem Personality disorder, unspecified F60.9 Active 46729325 Problem Post-traumatic stress disorder, chronic F43.12 Active [id number] ALLERGIES No Information ENCOUNTERS Encounter Location Date Diagnosis [place] [address] [address] Jul, Bipolar disorder, current ep isode depressed, moderate F31.32 and Anorexia nervosa F50.00 [place] [id number] [place] [id number] [address] [place] [address] Jul, [place] [address] [place] [id number] [address] [place] [address] Jul, [facility] [address] [place] [id number] [address] [place] [address] Jul, [facility] [address] [place] [id number] [address] [place] [address] Jun, Bipolar disorder, current ep isode depressed, moderate F31.32 ; Post-traumatic stress disorder, chronic F43.12 and Eating disorder, unspecified F50.9 [facility] [address] [facility] [id number] [address] [place] [address] May, [facility] [address] [place] [id number] [address] [place] [address] Apr, Bipolar disorder, current ep isode depressed, moderate F31.32 ; Post-traumatic stress disorder, chronic F43.12 and Eating disorder, unspecified F50.9 [facility] [address] [id number] [address] [place] [address] 14 Feb, 2016 Bipolar disorder, current ep isode depressed, moderate F31.32 ; Post-traumatic stress disorder, chronic F43.12 and Personality disorder, unspecified F60.9 [facility] [address] [id number] [address] [place] [address] 14 Feb, 2016 Bipolar II disorder F31.81 [facility] [address] [id number] [address] [place] [address] Dec, Bipolar disorder, current ep isode depressed, moderate F31.32 ; Post-traumatic stress disorder, chronic F43.12 and Personality disorder, unspecified F60.9 [place] [address] [id number] [address] [place] [address] Dec, Bipolar disorder, current ep isode depressed, moderate F31.32 ; Post-traumatic stress disorder, chronic F43.12 and Personality disorder, unspecified F60.9 [place] [id number] [id number] [address] [place] [address] Dec, [facility] [address] [id number] [address] [place] [address] Dec, [place] [address] [facility] [id number] [address] [place] [address] Dec, Bipolar disorder, current ep isode depressed, moderate F31.32 ; Post-traumatic stress disorder, chronic F43.12 and Personality disorder, unspecified F60.9 [place] [address] [id number] [address] [place] [address] Nov, [facility] [address] [id number] [address] [place] [address] Nov, Bipolar disorder, current ep isode depressed, moderate F31.32 ; Post-traumatic stress disorder, chronic F43.12 and Personality disorder, unspecified F60.9 [facility] [address] [id number] [address] [place] [address] Nov, Bipolar disorder, current ep isode depressed, moderate F31.32 ; Post-traumatic stress disorder, chronic F43.12 and Personality disorder, unspecified F60.9 [place] [address] [id number] [address] [place] [address] Oct, [facility] [address] [id number] [address] [place] [address] Oct, Bipolar disorder, current ep isode depressed, moderate F31.32 ; Post-traumatic stress disorder, chronic F43.12 and Personality disorder, unspecified F60.9 [place] [address] [facility] [id number] [address] [place] [address] Oct, Bipolar disorder, current ep isode depressed, moderate F31.32 ; Post-traumatic stress disorder, chronic F43.12 and Personality disorder, unspecified F60.9 [place] [address] [facility] [id number] [address] [place] [address] Aug, Bipolar II disorder F31.81 a nd Post-traumatic stress disorder, unspecified F43.10 [place] [address] [facility] [id number] [address] [place] [address] Aug, Bipolar disorder, current ep isode depressed, moderate F31.32 ; Post-traumatic stress disorder, chronic F43.12 and Personality disorder, unspecified F60.9 [place] [address] [facility] [id number] [address] [place] [address] Jul, Bipolar disorder, unspecifie d 296.80 and Posttraumatic stress disorder 309.81 [facility] [address] [id number] [address] [place] [address] Jul, Post-traumatic stress disord er, chronic F43.12 ; Personality disorder, unspecified F60.9 and Bipolar disorder, current episode depressed, moderate F31.32 [facility] [address] [id number] [address] [place] [address] Jun, Bipolar disorder, unspecifie d 296.80 and Posttraumatic stress disorder 309.81 [facility] [address] [id number] [address] [place] [address] Jun, Bipolar disorder, unspecifie d 296.80 and Posttraumatic stress disorder 309.81 [facility] [address] [id number] [address] [place] [address] Jun, Posttraumatic stress disorde r 309.81 and Bipolar disorder, unspecified 296.80 [facility] [address] [id number] [address] [place] [address] May, Bipolar II disorder 296.89 a nd Post traumatic stress disorder 309.81 [facility] [address] [id number] [address] [place] [address] May, Bipolar II disorder 296.89 a nd Post traumatic stress disorder 309.81 [facility] [address] [facility] [id number] [address] [place] [address] May, [facility] [address] [id number] [address] [place] [address] May, [facility] [address] [facility] [id number] [address] [place] [address] May, [facility] [address] [facility] [id number] [address] [place] [address] May, [facility] [address] [facility] [id number] [address] [place] [address] May, Bipolar II disorder 296.89 a nd Post traumatic stress disorder 309.81 [facility] [address] [id number] [address] [place] [address] May, Bipolar I disorder, most rec ent episode (or current) depressed, moderate 296.52 ; Posttraumatic stress disorder 309.81 and Anxiety state, unspecified 300.00 [facility] [address] [id number] [address] [place] [address] Apr, Bipolar II disorder 296.89 a nd Post traumatic stress disorder 309.81 [facility] [address] [facility] [id number] [address] [place] [address] Apr, [facility] [address] [id number] [address] [place] [address] Apr, Bipolar II disorder 296.89 a nd Post traumatic stress disorder 309.81 [facility] [address] [id number] [address] [place] [address] Apr, Bipolar II disorder 296.89 a nd Post traumatic stress disorder 309.81 [facility] [address] [id number] [address] [place] [address] Mar, Bipolar II disorder 296.89 a nd Post traumatic stress disorder 309.81 [facility] [address] [id number] [address] [place] [address] Mar, [facility] [address] [facility] [id number] [address] [place] [address] Mar, Bipolar II disorder 296.89 a nd Post traumatic stress disorder 309.81 [facility] [address] [id number] [address] [place] [address] Mar, Bipolar II disorder 296.89 a nd Post traumatic stress disorder 309.81 [facility] [address] [id number] [address] [place] [address] Mar, Bipolar II disorder 296.89 a nd Post traumatic stress disorder 309.81 [facility] [address] [id number] [address] [place] [address] Mar, [facility] [address] [id number] [address] [place] [address] Mar, Bipolar II disorder 296.89 a nd Post traumatic stress disorder 309.81 [facility] [address] [id number] [address] [place] [address] Feb, Bipolar II disorder 296.89 a nd Post traumatic stress disorder 309.81 [facility] [address] [id number] [address] [place] [address] Feb, [facility] [address] [id number] [address] [place] [address] Feb, Bipolar disorder, unspecifie d 296.80 and Anxiety state, unspecified 300.00 [facility] [address] [id number] [address] [place] [address] Feb, [facility] [address] [id number] [address] [place] [id number] Feb, [facility] [address] [id number] [address] [place] [address] January, [facility] [address] [id number] [address] [place] [address] Dec, [facility] [address] [id number] [address] [place] [phone] Dec, [facility] [address] [id number] [address] [place] [address] Nov, [facility] [address] [id number] [address] [place] [address] Nov, [facility] [address] [id number] [address] [place] [address] Nov, [facility] [address] [id number] [address] [place] [address] Nov, [facility] [address] [id number] [address] [place] [address] Nov, [facility] [address] [id number] [address] [place] [address] Nov, [facility] [address] [id number] [address] [place] [address] Nov, [facility] [address] [id number] [address] [place] [address] Nov, [facility] [address] [id number] [address] [place] [address] Nov, [facility] [address] [id number] [address] [place] [address], [place] [address] Oct, [facility] [address] [id number] [address] [place] [address], [place] [address] Oct, [facility] [address] [id number] [address] [place] [address], [place] [address] Oct, 2014 [facility] [address] [id number] [address] [place] [address], [place] [address] Oct, 2014 [facility] [address] [id number] [address] [place] [address], [place] [address] Oct, [facility] [address] [id number] [address] [place] [address], [place] [address] Oct, [facility] [address] [id number] [address] [place] [address], [place] [address] Oct, [facility] [address] [id number] [address] [place] [address], [place] [address] Oct, [facility] [address] [id number] [address] [place] [address], [place] [address] Sep, [facility] [address] [id number] [address] [place] [address], [place] [address] Sep, [facility] [address] [id number] [address] [place] [address], [place] [address] Sep, [facility] [address] [id number] [address] [place] [address], [place] [address] Sep, [facility] [address] [id number] [address] [place] [address], [place] [address] Sep, [facility] [address] [id number] [address] [place] [address], [place] [address] Sep, [facility] [address] [id number] [address] [place] [address], [place] [address] Sep, [facility] [address] [id number] [address] [place] [address], [place] [address] Sep, [facility] [address] [id number] [address] [place] [address], [place] [address] Sep, [facility] [address] [id number] [address] [place] [address], [place] [address] Sep, [facility] [address] [id number] [address] [place] [address], [place] [address] Aug, [facility] [address] [id number] [address] [place] [address], [place] [address] Aug, [facility] [address] [id number] [address] [place] [address], [place] [address] Aug, [facility] [address] [id number] [address] [place] [address], [place] [address] Aug, [facility] [address] [id number] [address] [place] [address], [place] [address] Aug, [facility] [address] [id number] [address] [place] [address], [place] [address] Aug, [facility] [address] [id number] [address] [place] [address], [place] [address] Aug, [facility] [address] [id number] [address] [place] [address], [place] [address] Aug, [facility] [address] [id number] [address] [place] [address], [place] [address] Jul, [facility] [address] [id number] [address] [place] [address], [place] [address] Jul, [facility] [address] [id number] [address] [place] [address], [place] [address] Jul, [facility] [address] [id number] [address] [place] [address], [place] [address] Jul, [facility] [address] [id number] [address] [place] [address], [place] [address] Jul, [facility] [address] [id number] [address] [place] [address], [place] [address] Jul, [facility] [address] [id number] [address] [place] [address], [place] [address] Jul, [facility] [address] [id number] [address] [place] [address], [place] [address] Jul, [facility] [address] [id number] [address] [place] [address], [place] [address] Jul, [facility] [address] [id number] [address] [place] [address], [place] [address] Jun, [facility] [address] [id number] [address] [place] [address], [place] [address] Jun, [facility] [address] [id number] [address] [place] [address], [place] [address] Jun, [facility] [address] [id number] [address] [place] [address], [place] [address] Jun, [facility] [address] [id number] [address] [place] [address], [place] [address] Jun, [facility] [address] [id number] [address] [place] [address], [place] [address] Jun, [facility] [address] [id number] [address] [place] [address], [place] [address] 25 May, 2013 [facility] [address] [id number] [address] [place] [address], [place] [address] 25 Sep, 2013 [facility] [address] [id number] [address] [place] [address], [place] [address] 16 Sep, 2013 [facility] [address] [id number] [address] [place] [address], [place] [address] 16 Sep, 2013 [facility] [address] [id number] [address] [place] [address], [place] [address] 05 Sep, 2013 [facility] [address] [id number] [address] [place] [address], [place] [address] May, [facility] [address] [id number] [address] [place] [address], [place] [address] Apr, [facility] [address] [id number] [address] [place] [address], [place] [address] Apr, [facility] [address] [id number] [address] [place] [address], [place] [address] Apr, [facility] [address] [id number] [address] [place] [address], [place] [address] Apr, [facility] [address] [id number] [address] [place] [address], [place] [address] Apr, [facility] [address] [id number] [address] [place] [address], [place] [address] Apr, [facility] [address] [id number] [address] [place] [address], [place] [address] Mar, [facility] [address] [id number] [address] [place] [address], [place] [address] Mar, [facility] [address] [id number] [address] [place] [address], [place] [address] Mar, [facility] [address] [id number] [address] [place] [address], [place] [address] Mar, [facility] [address] [id number] [address] [place] [address], [place] [address] Mar, [facility] [address] [id number] [address] [place] [address], [place] [address] Mar, [facility] [address] [id number] [address] [place] [address], [place] [address] Mar, [facility] [address] [id number] [address] [place] [address], [place] [address] Mar, [facility] [address] [id number] [address] [place] [address], [place] [address] Mar, [facility] [address] [id number] [address] [place] [address], [place] [address] Mar, 2013 [facility] [address] [id number] [address] [place] [address], [place] [address] Mar, 2013 [facility] [address] [id number] [address] [place] [address], [place] [address] Mar, 2013 [facility] [address] [id number] [address] [place] [address], [place] [address] Mar, 2013 [facility] [address] [id number] [address] [place] [address], [place] [address] Mar, 2013 [facility] [address] [id number] [address] [place] [address], [place] [address] Mar, 2013 [facility] [address] [id number] [address] [place] [address], [place] [address] Mar, 2013 [facility] [address] [id number] [address] [place] [address], [place] [address] Feb, [facility] [address] [id number] [address] [place] [address], [place] [address] 30 Feb, 2014 [facility] [address] [id number] [address] [place] [address], [place] [address] Feb, [facility] [address] [id number] [address] [place] [address], [place] [address] Feb, [facility] [address] [id number] [address] [place] [address], [place] [address] Feb, [facility] [address] [id number] [address] [place] [address], [place] [address] 23 Feb, 2014 [facility] [address] [id number] [address] [place] [address], [place] [address] 20 Feb, 2014 [facility] [address] [id number] [address] [place] [address], [place] [address] 16 Feb, 2014 [facility] [address] [id number] [address] [place] [address], [place] [address] Feb, [facility] [address] [id number] [facility] [place] [address] Feb, [facility] [address] [id number] [facility] [place] [address] Feb, [facility] [address] [id number] [facility] [place] [address] Feb, [facility] [address] [id number] [address] [place] [address], [place] [address] Feb, [facility] [address] [id number] [address] [place] [address] January, [facility] [address] [id number] [address] [place] [address], [place] [address] January, [facility] [address] [id number] [address] [place] [address], [place] [address] January, [facility] [address] [id number] [address] [place] [address], [place] [address] January, [facility] [address] [id number] [address] [place] [address], [place] [id number] January, [facility] [address] [id number] [address] [place] [address], [place] [id number] January, [facility] [address] [id number] [address] [place] [address], [place] [id number] January, [facility] [address] [id number] [address] [place] [address], [place] [address] January, [facility] [address] [id number] [address] [place] [address], [place] [address] January, [facility] [address] [id number] [address] [place] [address], [place] [address] January, [facility] [address] [id number] [address] [place] [address], [place] [address] January, [facility] [address] [id number] [address] [place] [address], [place] [address] January, [facility] [address] [id number] [address] [place] [address] January, [facility] [address] [id number] [address] [place] [address], [place] [address] January, [facility] [address] [id number] [address] [place] [address], [place] [address] Dec, [facility] [address] [id number] [address] [place] [address], [place] [address] Dec, [facility] [address] [id number] [address] [place] [address], [place] [address] Dec, [facility] [address] [id number] [address] [place] [address], [place] [id number] Dec, [facility] [address] [id number] [address] [place] [address], [place] [address] Dec, [facility] [address] [id number] [address] [place] [address], [place] [address] Dec, [facility] [address] [id number] [address] [place] [address], [place] [address] Dec, [facility] [address] [id number] [address] [place] [address], [place] [address] Dec, [facility] [address] [id number] [address] [place] [address], [place] [address] Nov, [facility] [address] [address] [id number] [address] [place] [address], [place] [address] Nov, [facility] [address] [id number] [address] [place] [address], [place] [address] Nov, [facility] [address] [id number] [address] [place] [address], [place] [address] Nov, [facility] [address] [id number] [address] [place] [address], [place] [address] Oct, [facility] [address] [id number] [address] [place] [address], [place] [address] Oct, [facility] [address] [id number] [address] [place] [address], [place] [address] Oct, [facility] [address] [id number] [address] [place] [address], [place] [address] Oct, [facility] [address] [id number] [address] [place] [address], [place] [address] Oct, [facility] [address] [id number] [address] [place] [address], [place] [address] Oct, [facility] [address] [id number] [address] [place] [address], [place] [address] Sep, [facility] [address] [id number] [address] [place] [address], [place] [address] Sep, [facility] [address] [id number] [address] [place] [address], [place] [address] Sep, [facility] [address] [id number] [address] [place] [address], [place] [address] Sep, [facility] [address] [id number] [address] [place] [address], [place] [address] Sep, [facility] [address] [id number] [address] [place] [address], [place] [address] Sep, [facility] [address] [id number] [address] [place] [address], [place] [address] Sep, [facility] [address] [id number] [address] [place] [address], [place] [address] Sep, [facility] [address] [id number] [address] [place] [address], [place] [address] Sep, [facility] [address] [id number] [address] [place] [address], [place] [address] Sep, [facility] [address] [id number] [address] [place] [address], [place] [address] Aug, [facility] [address] [id number] [address] [place] [address], [place] [address] Aug, [facility] [address] [id number] [address] [place] [address], [place] [address] Aug, [facility] [address] [id number] [address] [place] [address], [place] [address] Aug, [facility] [address] [id number] [address] [place] [address], [place] [address] Aug, [facility] [address] [id number] [address] [place] [address], [place] [address] Aug, [facility] [address] [id number] [address] [place] [address], [place] [address] Aug, [facility] [address] [id number] [address] [place] [address], [place] [id number] Aug, [facility] [address] [id number] [address] [place] [address], [place] [address] Jul, [facility] [address] [id number] [address] [place] [address], [place] [address] Jul, [facility] [address] [id number] [address] [place] [address] Jul, [facility] [address] [id number] [address] [place] [id number] Jul, [facility] [address] [id number] [address] [place] [id number] Jul, [facility] [address] [id number] [address] [place] [address] Jul, [facility] [address] [id number] [address] [place] [id number] Jul, [facility] [address] [id number] [address] [place] [address] Jul, [facility] [address] [id number] [address] [place] [id number] Jul, [facility] [address] [id number] [address] [place] [address], [place] [address] Jul, [facility] [address] [id number] [address] [place] [address] Jul, [facility] [address] [id number] [address] [place] [address], [place] [address] Jul, [facility] [address] [id number] [address] [place] [address], [place] [address] 30 Jun, 2013 [facility] [address] [id number] [address] [place] [address], [place] [address] 30 Jun, 2013 [facility] [address] [id number] [address] [place] [address], [place] [address] 29 Jun, 2013 [facility] [address] [id number] [address] [place] [address] Jun, [facility] [address] [id number] [address] [place] [address], [place] [address] Jun, [facility] [address] [id number] [address] [place] [address], [place] [address] Jun, [facility] [address] [id number] [address] [place] [id number] 16 Jun, 2013 [facility] [address] [id number] [address] [place] [id number] 02 Jun, 2013 [facility] [address] [id number] [address] [place] [id number] 25 May, 2012 [facility] [address] [id number] [address] [place] [address], [place] [address] 18 Sep, 2012 [facility] [address] [id number] [address] [place] [id number] 11 May, 2012 [facility] [address] [id number] [address] [place] [id number] 10 May, 2012 [facility] [address] [id number] [facility] [place] [address] May, [facility] [address] [id number] [address] [place] [address], [place] [address] May, [facility] [address] [id number] [address] [place] [address], [place] [address] Apr, [facility] [address] [id number] [address] [place] [address], [place] [address] Apr, [facility] [address] [id number] [address] [place] [address], [place] [address] Apr, [facility] [address] [id number] [address] [place] [address], [place] [address] Apr, [facility] [address] [id number] [address] [place] [address], [place] [address] Apr, [facility] [address] [id number] [address] [place] [address], [place] [address] Mar, [facility] [address] [id number] [address] [place] [address], [place] [address] Mar, [facility] [address] [id number] [address] [place] [address], [place] [address] Mar, [facility] [address] [id number] [address] [place] [address], [place] [address] Feb, [facility] [address] [id number] [address] [place] [address], [place] [address] Feb, [facility] [address] [id number] [address] [place] [address], [place] [address] Feb, [facility] [address] [id number] [address] [place] [address], [place] [address] January, [facility] [address] [id number] [address] [place] [address], [place] [address] January, [facility] [address] [id number] [address] [place] [address] [address] Dec, [facility] [address] [facility] [id number] [address] [place] [id number] Nov, [facility] [address] [facility] [id number] [address] [place] [id number] Nov, IMMUNIZATIONS No Known Immunizations SOCIAL HISTORY Never Assessed REASON FOR VISIT EMR-[facility] PLAN OF CARE VITAL SIGNS MEDICATIONS No [...]
--- OUTSIDE RECORDS SUMMARY | 2019-12-04 12:02 | XMS REPORT ---
Author Author Shireen Moyer Doctor Organization [facility] Address Unknown Phone Unavailable Care Team Providers Care Division Order Technician Name Role Phone Migration, Doctor Unavailable Unavailable PROBLEMS Type Condition ICD9-CM Code [id number] Code Onset Dates Condition S tatus SNOMED Code Problem Bipolar disorder, current episode depressed, moderate F31.32 Active 378552552 Problem Anorexia nervosa F50.00 Active 568 43411 Problem Personality disorder, unspecified F60.9 Active 26313500 Problem Post-traumatic stress disorder, chronic F43.12 Active [id number] ALLERGIES No Information ENCOUNTERS Encounter Location Date Diagnosis [place] [address] [address] Jul, Bipolar disorder, current ep isode depressed, moderate F31.32 and Anorexia nervosa F50.00 [place] [address] [place] [id number] [address] [place] [address] Jul, [place] [address] [address] [place] [id number] [address] [place] [address] Jul, [facility] [address] [place] [id number] [address] [place] [address] Jul, [facility] [address] [place] [id number] [address] [place] [address] Jun, Bipolar disorder, current ep isode depressed, moderate F31.32 ; Post-traumatic stress disorder, chronic F43.12 and Eating disorder, unspecified F50.9 [facility] [address] [facility] [id number] [address] [place] [address] May, [facility] [address] [place] [id number] [address] [place] [address] Apr, Bipolar disorder, current ep isode depressed, moderate F31.32 ; Post-traumatic stress disorder, chronic F43.12 and Eating disorder, unspecified F50.9 [facility] [address] [id number] [address] [place] [address] 14 Feb, 2016 Bipolar disorder, current ep isode depressed, moderate F31.32 ; Post-traumatic stress disorder, chronic F43.12 and Personality disorder, unspecified F60.9 [facility] [address] [id number] [address] [place] [address] 14 Feb, 2016 Bipolar II disorder F31.81 [facility] [address] [id number] [address] [place] [address] Dec, Bipolar disorder, current ep isode depressed, moderate F31.32 ; Post-traumatic stress disorder, chronic F43.12 and Personality disorder, unspecified F60.9 [place] [address] [id number] [address] [place] [address] Dec, Bipolar disorder, current ep isode depressed, moderate F31.32 ; Post-traumatic stress disorder, chronic F43.12 and Personality disorder, unspecified F60.9 [place] [address] [id number] [address] [place] [address] Dec, [facility] [address] [id number] [address] [place] [address] Dec, [place] [address] [facility] [id number] [address] [place] [address] Dec, Bipolar disorder, current ep isode depressed, moderate F31.32 ; Post-traumatic stress disorder, chronic F43.12 and Personality disorder, unspecified F60.9 [place] [address] [id number] [address] [place] [address] Nov, [facility] [address] [id number] [address] [place] [address] Nov, Bipolar disorder, current ep isode depressed, moderate F31.32 ; Post-traumatic stress disorder, chronic F43.12 and Personality disorder, unspecified F60.9 [facility] [address] [id number] [address] [place] [address] Nov, Bipolar disorder, current ep isode depressed, moderate F31.32 ; Post-traumatic stress disorder, chronic F43.12 and Personality disorder, unspecified F60.9 [place] [address] [id number] [address] [place] [address] Oct, [facility] [address] [id number] [address] [place], [place] [address] Oct, Bipolar disorder, current ep isode depressed, moderate F31.32 ; Post-traumatic stress disorder, chronic F43.12 and Personality disorder, unspecified F60.9 [place] [address] [facility] [id number] [address] [place] [address] Oct, Bipolar disorder, current ep isode depressed, moderate F31.32 ; Post-traumatic stress disorder, chronic F43.12 and Personality disorder, unspecified F60.9 [place] [address] [facility] [id number] [address] [place] [address] Aug, Bipolar II disorder F31.81 a nd Post-traumatic stress disorder, unspecified F43.10 [place] [address] [address] [facility] [id number] [address] [place] [address] Aug, Bipolar disorder, current ep isode depressed, moderate F31.32 ; Post-traumatic stress disorder, chronic F43.12 and Personality disorder, unspecified F60.9 [place] [address] [facility] [id number] [address] [place] [address] Jul, Bipolar disorder, unspecifie d 296.80 and Posttraumatic stress disorder 309.81 [facility] [address] [id number] [address] [place] [address] Jul, Post-traumatic stress disord er, chronic F43.12 ; Personality disorder, unspecified F60.9 and Bipolar disorder, current episode depressed, moderate F31.32 [facility] [address] [id number] [address] [place] [address] Jun, Bipolar disorder, unspecifie d 296.80 and Posttraumatic stress disorder 309.81 [facility] [address] [id number] [address] [place] [address] Jun, Bipolar disorder, unspecifie d 296.80 and Posttraumatic stress disorder 309.81 [facility] [address] [id number] [address] [place] [address] Jun, Posttraumatic stress disorde r 309.81 and Bipolar disorder, unspecified 296.80 [facility] [address] [id number] [address] [place] [address] May, Bipolar II disorder 296.89 a nd Post traumatic stress disorder 309.81 [facility] [address] [id number] [address] [place] [address] May, Bipolar II disorder 296.89 a nd Post traumatic stress disorder 309.81 [facility] [address] [facility] [id number] [address] [place] [address] May, [facility] [address] [id number] [address] [place] [address] May, [facility] [address] [facility] [id number] [address] [place] [address] May, [facility] [address] [facility] [id number] [address] [place] [address] May, [facility] [address] [facility] [id number] [address] [place] [address] May, Bipolar II disorder 296.89 a nd Post traumatic stress disorder 309.81 [facility] [address] [id number] [address] [place] [address] May, Bipolar I disorder, most rec ent episode (or current) depressed, moderate 296.52 ; Posttraumatic stress disorder 309.81 and Anxiety state, unspecified 300.00 [facility] [address] [id number] [address] [place] [address] Apr, Bipolar II disorder 296.89 a nd Post traumatic stress disorder 309.81 [facility] [address] [facility] [id number] [address] [place] [address] Apr, [facility] [address] [id number] [address] [place] [address] Apr, Bipolar II disorder 296.89 a nd Post traumatic stress disorder 309.81 [facility] [address] [id number] [address] [place] [address] Apr, Bipolar II disorder 296.89 a nd Post traumatic stress disorder 309.81 [facility] [address] [id number] [address] [place] [address] Mar, Bipolar II disorder 296.89 a nd Post traumatic stress disorder 309.81 [facility] [address] [id number] [address] [place] [address] Mar, [facility] [address] [facility] [id number] [address] [place] [address] Mar, Bipolar II disorder 296.89 a nd Post traumatic stress disorder 309.81 [facility] [address] [id number] [address] [place] [address] Mar, Bipolar II disorder 296.89 a nd Post traumatic stress disorder 309.81 [facility] [address] [id number] [address] [place] [address] Mar, Bipolar II disorder 296.89 a nd Post traumatic stress disorder 309.81 [facility] [address] [id number] [address] [place] [address] Mar, [facility] [address] [id number] [address] [place] [address] Mar, Bipolar II disorder 296.89 a nd Post traumatic stress disorder 309.81 [facility] [address] [id number] [address] [place] [address] Feb, Bipolar II disorder 296.89 a nd Post traumatic stress disorder 309.81 [facility] [address] [id number] [address] [place] [address] Feb, [facility] [address] [id number] [address] [place] [address] Feb, Bipolar disorder, unspecifie d 296.80 and Anxiety state, unspecified 300.00 [facility] [address] [id number] [address] [place] [address] Feb, [facility] [address] [id number] [address] [place] [address] Feb, [facility] [address] [id number] [address] [place] [address] January, [facility] [address] [id number] [address] [place] [address] Dec, [facility] [address] [id number] [address] [place] [address] Dec, [facility] [address] [id number] [address] [place] [address] Nov, [facility] [address] [id number] [address] [place] [address] Nov, [facility] [address] [id number] [address] [place] [address] Nov, [facility] [address] [id number] [address] [place] [address] Nov, [facility] [address] [id number] [address] [place] [address] Nov, [facility] [address] [id number] [address] [place] [address] Nov, [facility] [address] [id number] [address] [place] [address] Nov, [facility] [address] [id number] [address] [place] [address] Nov, [facility] [address] [id number] [address] [place] [address] Nov, [facility] [address] [id number] [address] [place] [address], [place] [address] Oct, [facility] [address] [id number] [address] [place] [address], [place] [address] Oct, [facility] [address] [id number] [address] [place] [address], [place] [address] Oct, 2014 [facility] [address] [id number] [address] [place] [address], [place] [address] Oct, 2014 [facility] [address] [id number] [address] [place] [address], [place] [address] Oct, [facility] [address] [id number] [address] [place] [address], [place] [address] Oct, [facility] [address] [id number] [address] [place] [address], [place] [address] Oct, [facility] [address] [id number] [address] [place] [address], [place] [address] Oct, [facility] [address] [id number] [address] [place] [address], [place] [address] Sep, [facility] [address] [id number] [address] [place] [address], [place] [address] Sep, [facility] [address] [id number] [address] [place] [address], [place] [address] Sep, [facility] [address] [id number] [address] [place] [address], [place] [address] Sep, [facility] [address] [id number] [address] [place] [address], [place] [address] Sep, [facility] [address] [id number] [address] [place] [address], [place] [address] Sep, [facility] [address] [id number] [address] [place] [address], [place] [address] Sep, [facility] [address] [id number] [address] [place] [address], [place] [address] Sep, [facility] [address] [id number] [address] [place] [address], [place] [address] Sep, [facility] [address] [id number] [address] [place] [address], [place] [address] Sep, [facility] [address] [id number] [address] [place] [address], [place] [address] Aug, [facility] [address] [id number] [address] [place] [address], [place] [address] Aug, [facility] [address] [id number] [address] [place] [address], [place] [address] Aug, [facility] [address] [id number] [address] [place] [address], [place] [address] Aug, [facility] [address] [id number] [address] [place] [address], [place] [address] Aug, [facility] [address] [id number] [address] [place] [address], [place] [address] Aug, [facility] [address] [id number] [address] [place] [address], [place] [address] Aug, [facility] [address] [id number] [address] [place] [address], [place] [address] Aug, [facility] [address] [id number] [address] [place] [address], [place] [address] Jul, [facility] [address] [id number] [address] [place] [address], [place] [address] Jul, [facility] [address] [id number] [address] [place] [address], [place] [address] Jul, [facility] [address] [id number] [address] [place] [address], [place] [address] Jul, [facility] [address] [id number] [address] [place] [address], [place] [address] Jul, [facility] [address] [id number] [address] [place] [address], [place] [address] Jul, [facility] [address] [id number] [address] [place] [address], [place] [address] Jul, [facility] [address] [id number] [address] [place] [address], [place] [address] Jul, [facility] [address] [id number] [address] [place] [address], [place] [address] Jul, [facility] [address] [id number] [address] [place] [address], [place] [address] Jun, [facility] [address] [id number] [address] [place] [address], [place] [address] Jun, [facility] [address] [id number] [address] [place] [address], [place] [address] Jun, [facility] [address] [id number] [address] [place] [address], [place] [address] Jun, [facility] [address] [id number] [address] [place] [address], [place] [address] Jun, [facility] [address] [id number] [address] [place] [address], [place] [address] Jun, [facility] [address] [id number] [address] [place] [address], [place] [address] 25 May, 2013 [facility] [address] [id number] [address] [place] [address], [place] [address] 25 Sep, 2013 [facility] [address] [id number] [address] [place] [address], [place] [address] 16 Sep, 2013 [facility] [address] [id number] [address] [place] [address], [place] [address] 16 Sep, 2013 [facility] [address] [id number] [address] [place] [address], [place] [address] 05 Sep, 2013 [facility] [address] [id number] [address] [place] [address], [place] [address] May, [facility] [address] [id number] [address] [place] [address], [place] [address] Apr, [facility] [address] [id number] [address] [place] [address], [place] [address] Apr, [facility] [address] [id number] [address] [place] [address], [place] [address] Apr, [facility] [address] [id number] [address] [place] [address], [place] [address] Apr, [facility] [address] [id number] [address] [place] [address], [place] [address] Apr, [facility] [address] [id number] [address] [place] [address], [place] [address] Apr, [facility] [address] [id number] [address] [place] [address], [place] [address] Mar, [facility] [address] [id number] [address] [place] [address], [place] [address] Mar, [facility] [address] [id number] [address] [place] [address], [place] [address] Mar, [facility] [address] [id number] [address] [place] [address], [place] [address] Mar, [facility] [address] [id number] [address] [place] [address], [place] [address] Mar, [facility] [address] [id number] [address] [place] [address], [place] [address] Mar, [facility] [address] [id number] [address] [place] [address], [place] [address] Mar, [facility] [address] [id number] [address] [place] [address], [place] [address] Mar, [facility] [address] [id number] [address] [place] [address], [place] [address] Mar, [facility] [address] [id number] [address] [place] [address], [place] [address] Mar, 2013 [facility] [address] [id number] [address] [place] [address], [place] [address] Mar, 2013 [facility] [address] [id number] [address] [place] [address], [place] [address] Mar, 2013 [facility] [address] [id number] [address] [place] [address], [place] [address] Mar, 2013 [facility] [address] [id number] [address] [place] [address], [place] [address] Mar, 2013 [facility] [address] [id number] [address] [place] [address], [place] [address] Mar, 2013 [facility] [address] [id number] [address] [place] [address], [place] [address] Mar, 2013 [facility] [address] [id number] [address] [place] [address], [place] [address] Feb, [facility] [address] [id number] [address] [place] [address], [place] [address] 30 Feb, 2014 [facility] [address] [id number] [address] [place] [address], [place] [address] Feb, [facility] [address] [id number] [address] [place] [address], [place] [address] Feb, [facility] [address] [id number] [address] [place] [address], [place] [address] Feb, [facility] [address] [id number] [address] [place] [address], [place] [address] 23 Feb, 2014 [facility] [address] [id number] [address] [place] [address], [place] [address] 20 Feb, 2014 [facility] [address] [id number] [address] [place] [address], [place] [address] 16 Feb, 2014 [facility] [address] [id number] [address] [place] [address], [place] [address] Feb, [facility] [address] [id number] [facility] [place] [address] Feb, [facility] [address] [id number] [facility] [place] [address] Feb, [facility] [address] [id number] [facility] [place] [address] Feb, [facility] [address] [id number] [address] [place] [address], [place] [address] Feb, [facility] [address] [id number] [facility] [place] [address] January, [facility] [address] [id number] [address] [place] [address], [place] [address] January, [facility] [address] [id number] [address] [place] [address], [place] [address] January, [facility] [address] [id number] [address] [place] [address], [place] [address] January, [facility] [address] [id number] [address] [place] [address], [place] [address] January, [facility] [address] [id number] [address] [place] [address], [place] [address] January, [facility] [address] [id number] [address] [place] [address], [place] [address] January, [facility] [address] [id number] [address] [place] [address], [place] [address] January, [facility] [address] [id number] [address] [place] [address], [place] [address] January, [facility] [address] [id number] [address] [place] [address], [place] [address] January, [facility] [address] [id number] [address] [place] [address], [place] [address] January, [facility] [address] [id number] [address] [place] [address], [place] [address] January, [facility] [address] [id number] [facility] [place] [address] January, [facility] [address] [id number] [address] [place] [address], [place] [address] January, [facility] [address] [id number] [address] [place] [address], [place] [address] Dec, [facility] [address] [id number] [address] [place] [address], [place] [address] Dec, [facility] [address] [id number] [address] [place] [address], [place] [address] Dec, [facility] [address] [id number] [address] [place] [address], [place] [address] Dec, [facility] [address] [id number] [address] [place] [address], [place] [address] Dec, [facility] [address] [id number] [address] [place] [address], [place] [address] Dec, [facility] [address] [id number] [address] [place] [address], [place] [address] Dec, [facility] [address] [id number] [address] [place] [address], [place] [address] Dec, [facility] [address] [id number] [address] [place] [address], [place] [address] Nov, [facility] [address] [id number] [address] [place] [address], [place] [address] Nov, [facility] [address] [id number] [address] [place] [address], [place] [address] Nov, [facility] [address] [id number] [address] [place] [address], [place] [address] Nov, [facility] [address] [id number] [address] [place] [address], [place] [address] Oct, [facility] [address] [id number] [address] [place] [address], [place] [address] Oct, [facility] [address] [id number] [address] [place] [address], [place] [address] Oct, [facility] [address] [id number] [address] [place] [address], [place] [address] Oct, [facility] [address] [id number] [address] [place] [address], [place] [address] Oct, [facility] [address] [id number] [address] [place] [address], [place] [address] Oct, [facility] [address] [id number] [address] [place] [address], [place] [address] Sep, [facility] [address] [id number] [address] [place] [address], [place] [address] Sep, [facility] [address] [id number] [address] [place] [address], [place] [address] Sep, [facility] [address] [id number] [address] [place] [address], [place] [address] Sep, [facility] [address] [id number] [address] [place] [address], [place] [address] Sep, [facility] [address] [id number] [address] [place] [address], [place] [address] Sep, [facility] [address] [id number] [address] [place] [address], [place] [address] Sep, [facility] [address] [id number] [address] [place] [address], [place] [address] Sep, [facility] [address] [id number] [address] [place] [address], [place] [address] Sep, [facility] [address] [id number] [address] [place] [address], [place] [address] Sep, [facility] [address] [id number] [address] [place] [address], [place] [address] Aug, [facility] [address] [id number] [address] [place] [address], [place] [address] Aug, [facility] [address] [id number] [address] [place] [address], [place] [address] Aug, [facility] [address] [id number] [address] [place] [address], [place] [address] Aug, [facility] [address] [id number] [address] [place] [address], [place] [address] Aug, [facility] [address] [id number] [address] [place] [address], [place] [address] Aug, [facility] [address] [id number] [address] [place] [address], [place] [address] Aug, [facility] [address] [id number] [address] [place] [address], [place] [address] Aug, [facility] [address] [id number] [address] [place] [address], [place] [address] Jul, [facility] [address] [id number] [address] [place] [address], [place] [address] Jul, [facility] [address] [id number] [address] [place] [address] Jul, [facility] [address] [id number] [address] [place] [address] Jul, [facility] [address] [id number] [address] [place] [address] Jul, [facility] [address] [id number] [address] [place] [address] Jul, [facility] [address] [id number] [address] [place] [address] Jul, [facility] [address] [id number] [address] [place] [address] Jul, [facility] [address] [id number] [address] [place] [address] Jul, [facility] [address] [id number] [address] [place] [address], [place] [address] Jul, [facility] [address] [id number] [address] [place] [id number] Jul, [facility] [address] [id number] [address] [place] [address], [place] [address] Jul, [facility] [address] [id number] [address] [place] [address], [place] [address] 30 Jun, 2013 [facility] [address] [id number] [address] [place] [address], [place] [address] 30 Jun, 2013 [facility] [address] [id number] [address] [place] [address], [place] [address] 29 Jun, 2013 [facility] [address] [id number] [address] [place] [address] Jun, [facility] [address] [id number] [address] [place] [address], [place] [address] Jun, [facility] [address] [id number] [address] [place] [address], [place] [address] Jun, [facility] [address] [id number] [address] [place] [id number] 16 Jun, 2013 [facility] [address] [id number] [address] [place] [id number] 02 Jun, 2013 [facility] [address] [id number] [address] [place] [id number] 25 May, 2012 [facility] [address] [id number] [address] [place] [address], [place] [address] 18 Sep, 2012 [facility] [address] [id number] [address] [place] [address] 11 May, 2012 [facility] [address] [id number] [address] [place] [address] 10 May, 2012 [facility] [address] [id number] [facility] [place] [address] May, [facility] [address] [id number] [address] [place] [address], [place] [address] May, [facility] [address] [id number] [address] [place] [address], [place] [address] Apr, [facility] [address] [id number] [address] [place] [address], [place] [address] Apr, [facility] [address] [id number] [address] [place] [address], [place] [address] Apr, [facility] [address] [id number] [address] [place] [address], [place] [address] Apr, [facility] [address] [id number] [address] [place] [address], [place] [address] Apr, [facility] [address] [id number] [address] [place] [address], [place] [address] Mar, [facility] [address] [id number] [address] [place] [address], [place] [address] Mar, [facility] [address] [id number] [address] [place] [address], [place] [address] Mar, [facility] [address] [id number] [address] [place] [address], [place] [address] Feb, [facility] [address] [id number] [address] [place] [address], [place] [address] Feb, [facility] [address] [id number] [address] [place] [address], [place] [address] Feb, [facility] [address] [id number] [address] [place] [address], [place] [address] January, [facility] [address] [id number] [address] [place] [address], [place] [address] January, [facility] [address] [id number] [address] [place] [address] [address] Dec, [facility] [address] [facility] [id number] [address] [place] [id number] Nov, [facility] [address] [facility] [id number] [address] [place] [id number] Nov, IMMUNIZATIONS No Known Immunizations SOCIAL HISTORY Never Assessed REASON FOR VISIT EMR-[facility] PLAN OF CARE [...]
--- OUTSIDE RECORDS SUMMARY | 2019-12-04 12:02 | XMS REPORT ---
Author Author Shireen Moyer Doctor Organization [facility] Address Unknown Phone Unavailable Care Team Providers Care Lace Pinner Name Role Phone Migration, Doctor Unavailable Unavailable PROBLEMS Type Condition ICD9-CM Code [id number] Code Onset Dates Condition S tatus SNOMED Code Problem Bipolar disorder, current episode depressed, moderate F31.32 Active 361921959 Problem Anorexia nervosa F50.00 Active 568 17963 Problem Personality disorder, unspecified F60.9 Active 52724580 Problem Post-traumatic stress disorder, chronic F43.12 Active [id number] ALLERGIES No Information ENCOUNTERS Encounter Location Date Diagnosis [place] [address] [address] Jul, Bipolar disorder, current ep isode depressed, moderate F31.32 and Anorexia nervosa F50.00 [place] [id number] [address] [place] [address] Jul, [place] [address] [place] [id number] [address] [place] [address] Jul, [facility] [address] [place] [id number] [address] [place] [address] Jul, [facility] [address] [place] [id number] [address] [place] [address] Jun, Bipolar disorder, current ep isode depressed, moderate F31.32 ; Post-traumatic stress disorder, chronic F43.12 and Eating disorder, unspecified F50.9 [facility] [address] [facility] [id number] [address] [place] [address] May, [facility] [address] [place] [id number] [address] [place] [address] Apr, Bipolar disorder, current ep isode depressed, moderate F31.32 ; Post-traumatic stress disorder, chronic F43.12 and Eating disorder, unspecified F50.9 [facility] [address] [id number] [address] [place] [address] 14 Feb, 2016 Bipolar disorder, current ep isode depressed, moderate F31.32 ; Post-traumatic stress disorder, chronic F43.12 and Personality disorder, unspecified F60.9 [facility] [address] [id number] [address] [place] [address] 14 Feb, 2016 Bipolar II disorder F31.81 [facility] [address] [id number] [address] [place] [address] Dec, Bipolar disorder, current ep isode depressed, moderate F31.32 ; Post-traumatic stress disorder, chronic F43.12 and Personality disorder, unspecified F60.9 [place] [address] [id number] [address] [place] [address] Dec, Bipolar disorder, current ep isode depressed, moderate F31.32 ; Post-traumatic stress disorder, chronic F43.12 and Personality disorder, unspecified F60.9 [place] [address] [id number] [address] [place] [address] Dec, [facility] [address] [id number] [address] [place] [address] Dec, [place] [address] [facility] [id number] [address] [place] [address] Dec, Bipolar disorder, current ep isode depressed, moderate F31.32 ; Post-traumatic stress disorder, chronic F43.12 and Personality disorder, unspecified F60.9 [place] [address] [id number] [address] [place] [address] Nov, [facility] [address] [id number] [address] [place] [address] Nov, Bipolar disorder, current ep isode depressed, moderate F31.32 ; Post-traumatic stress disorder, chronic F43.12 and Personality disorder, unspecified F60.9 [facility] [address] [id number] [address] [place] [address] Nov, Bipolar disorder, current ep isode depressed, moderate F31.32 ; Post-traumatic stress disorder, chronic F43.12 and Personality disorder, unspecified F60.9 [place] [address] [id number] [address] [place] [address] Oct, [facility] [address] [id number] [address] [place], [place] [address] Oct, Bipolar disorder, current ep isode depressed, moderate F31.32 ; Post-traumatic stress disorder, chronic F43.12 and Personality disorder, unspecified F60.9 [place] [address] [facility] [id number] [address] [place] [address] Oct, Bipolar disorder, current ep isode depressed, moderate F31.32 ; Post-traumatic stress disorder, chronic F43.12 and Personality disorder, unspecified F60.9 [place] [address] [facility] [id number] [address] [place] [address] Aug, Bipolar II disorder F31.81 a nd Post-traumatic stress disorder, unspecified F43.10 [place] [address] [facility] [id number] [address] [place] [address] Aug, Bipolar disorder, current ep isode depressed, moderate F31.32 ; Post-traumatic stress disorder, chronic F43.12 and Personality disorder, unspecified F60.9 [place] [address] [facility] [id number] [address] [place] [address] Jul, Bipolar disorder, unspecifie d 296.80 and Posttraumatic stress disorder 309.81 [facility] [address] [id number] [address] [place] [address] Jul, Post-traumatic stress disord er, chronic F43.12 ; Personality disorder, unspecified F60.9 and Bipolar disorder, current episode depressed, moderate F31.32 [facility] [address] [id number] [address] [place] [address] Jun, Bipolar disorder, unspecifie d 296.80 and Posttraumatic stress disorder 309.81 [facility] [address] [id number] [address] [place] [address] Jun, Bipolar disorder, unspecifie d 296.80 and Posttraumatic stress disorder 309.81 [facility] [address] [id number] [address] [place] [address] Jun, Posttraumatic stress disorde r 309.81 and Bipolar disorder, unspecified 296.80 [facility] [address] [id number] [address] [place] [address] May, Bipolar II disorder 296.89 a nd Post traumatic stress disorder 309.81 [facility] [address] [id number] [address] [place] [address] May, Bipolar II disorder 296.89 a nd Post traumatic stress disorder 309.81 [facility] [address] [facility] [id number] [address] [place] [address] May, [facility] [address] [id number] [address] [place] [address] May, [facility] [address] [facility] [id number] [address] [place] [address] May, [facility] [address] [facility] [id number] [address] [place] [address] May, [facility] [address] [facility] [id number] [address] [place] [address] May, Bipolar II disorder 296.89 a nd Post traumatic stress disorder 309.81 [facility] [address] [id number] [address] [place] [address] May, Bipolar I disorder, most rec ent episode (or current) depressed, moderate 296.52 ; Posttraumatic stress disorder 309.81 and Anxiety state, unspecified 300.00 [facility] [address] [id number] [address] [place] [address] Apr, Bipolar II disorder 296.89 a nd Post traumatic stress disorder 309.81 [facility] [address] [facility] [id number] [address] [place] [address] Apr, [facility] [address] [id number] [address] [place] [address] Apr, Bipolar II disorder 296.89 a nd Post traumatic stress disorder 309.81 [facility] [address] [id number] [address] [place] [address] Apr, Bipolar II disorder 296.89 a nd Post traumatic stress disorder 309.81 [facility] [address] [id number] [address] [place] [address] Mar, Bipolar II disorder 296.89 a nd Post traumatic stress disorder 309.81 [facility] [address] [id number] [address] [place] [address] Mar, [facility] [address] [facility] [id number] [address] [place] [address] Mar, Bipolar II disorder 296.89 a nd Post traumatic stress disorder 309.81 [facility] [address] [id number] [address] [place] [address] Mar, Bipolar II disorder 296.89 a nd Post traumatic stress disorder 309.81 [facility] [address] [id number] [address] [place] [address] Mar, Bipolar II disorder 296.89 a nd Post traumatic stress disorder 309.81 [facility] [address] [id number] [address] [place] [address] Mar, [facility] [address] [id number] [address] [place] [address] Mar, Bipolar II disorder 296.89 a nd Post traumatic stress disorder 309.81 [facility] [address] [id number] [address] [place] [address] Feb, Bipolar II disorder 296.89 a nd Post traumatic stress disorder 309.81 [facility] [address] [id number] [address] [place] [address] Feb, [facility] [address] [id number] [address] [place] [address] Feb, Bipolar disorder, unspecifie d 296.80 and Anxiety state, unspecified 300.00 [facility] [address] [id number] [address] [place] [address] Feb, [facility] [address] [id number] [address] [place] [address] Feb, [facility] [address] [id number] [address] [place] [address] January, [facility] [address] [id number] [address] [place] [address] Dec, [facility] [address] [id number] [address] [place] [address] Dec, [facility] [address] [id number] [address] [place] [address] Nov, [facility] [address] [id number] [address] [place] [address] Nov, [facility] [address] [id number] [address] [place] [address] Nov, [facility] [address] [id number] [address] [place] [address] Nov, [facility] [address] [id number] [address] [place] [address] Nov, [facility] [address] [id number] [address] [place] [address] Nov, [facility] [address] [id number] [address] [place] [address] Nov, [facility] [address] [id number] [address] [place] [address] Nov, [facility] [address] [id number] [address] [place] [address] Nov, [facility] [address] [id number] [address] [place] [address], [place] [address] Oct, [facility] [address] [id number] [address] [place] [address], [place] [address] Oct, [facility] [address] [id number] [address] [place] [address], [place] [address] Oct, 2014 [facility] [address] [id number] [address] [place] [address], [place] [address] Oct, 2014 [facility] [address] [id number] [address] [place] [address], [place] [address] Oct, [facility] [address] [id number] [address] [place] [address], [place] [address] Oct, [facility] [address] [id number] [address] [place] [address], [place] [address] Oct, [facility] [address] [id number] [address] [place] [address], [place] [address] Oct, [facility] [address] [id number] [address] [place] [address], [place] [address] Sep, [facility] [address] [id number] [address] [place] [address], [place] [address] Sep, [facility] [address] [id number] [address] [place] [address], [place] [address] Sep, [facility] [address] [id number] [address] [place] [address], [place] [address] Sep, [facility] [address] [id number] [address] [place] [address], [place] [address] Sep, [facility] [address] [id number] [address] [place] [address], [place] [address] Sep, [facility] [address] [id number] [address] [place] [address], [place] [address] Sep, [facility] [address] [id number] [address] [place] [address], [place] [address] Sep, [facility] [address] [id number] [address] [place] [address], [place] [address] Sep, [facility] [address] [id number] [address] [place] [address], [place] [address] Sep, [facility] [address] [id number] [address] [place] [address], [place] [address] Aug, [facility] [address] [id number] [address] [place] [address], [place] [address] Aug, [facility] [address] [id number] [address] [place] [address], [place] [address] Aug, [facility] [address] [id number] [address] [place] [address], [place] [address] Aug, [facility] [address] [id number] [address] [place] [address], [place] [address] Aug, [facility] [address] [id number] [address] [place] [address], [place] [address] Aug, [facility] [address] [id number] [address] [place] [address], [place] [address] Aug, [facility] [address] [id number] [address] [place] [address], [place] [address] Aug, [facility] [address] [id number] [address] [place] [address], [place] [address] Jul, [facility] [address] [id number] [address] [place] [address], [place] [address] Jul, [facility] [address] [id number] [address] [place] [address], [place] [address] Jul, [facility] [address] [id number] [address] [place] [address], [place] [address] Jul, [facility] [address] [id number] [address] [place] [address], [place] [address] Jul, [facility] [address] [id number] [address] [place] [address], [place] [address] Jul, [facility] [address] [id number] [address] [place] [address], [place] [address] Jul, [facility] [address] [id number] [address] [place] [address], [place] [address] Jul, [facility] [address] [id number] [address] [place] [address], [place] [address] Jul, [facility] [address] [id number] [address] [place] [address], [place] [address] Jun, [facility] [address] [id number] [address] [place] [address], [place] [address] Jun, [facility] [address] [id number] [address] [place] [address], [place] [address] Jun, [facility] [address] [id number] [address] [place] [address], [place] [address] Jun, [facility] [address] [id number] [address] [place] [address], [place] [address] Jun, [facility] [address] [id number] [address] [place] [address], [place] [address] Jun, [facility] [address] [id number] [address] [place] [address], [place] [address] 25 May, 2013 [facility] [address] [id number] [address] [place] [address], [place] [address] 25 Sep, 2013 [facility] [address] [id number] [address] [place] [address], [place] [address] 16 Sep, 2013 [facility] [address] [id number] [address] [place] [address], [place] [address] 16 Sep, 2013 [facility] [address] [id number] [address] [place] [address], [place] [address] 05 Sep, 2013 [facility] [address] [id number] [address] [place] [address], [place] [address] May, [facility] [address] [id number] [address] [place] [address], [place] [address] Apr, [facility] [address] [id number] [address] [place] [address], [place] [address] Apr, [facility] [address] [id number] [address] [place] [address], [place] [address] Apr, [facility] [address] [id number] [address] [place] [address], [place] [address] Apr, [facility] [address] [id number] [address] [place] [address], [place] [address] Apr, [facility] [address] [id number] [address] [place] [address], [place] [address] Apr, [facility] [address] [id number] [address] [place] [address], [place] [address] Mar, [facility] [address] [id number] [address] [place] [address], [place] [address] Mar, [facility] [address] [id number] [address] [place] [address], [place] [address] Mar, [facility] [address] [id number] [address] [place] [address], [place] [address] Mar, [facility] [address] [id number] [address] [place] [address], [place] [address] Mar, [facility] [address] [id number] [address] [place] [address], [place] [address] Mar, [facility] [address] [id number] [address] [place] [address], [place] [address] Mar, [facility] [address] [id number] [address] [place] [address], [place] [address] Mar, [facility] [address] [id number] [address] [place] [address], [place] [address] Mar, [facility] [address] [id number] [address] [place] [address], [place] [address] Mar, 2013 [facility] [address] [id number] [address] [place] [address], [place] [address] Mar, 2013 [facility] [address] [id number] [address] [place] [address], [place] [address] Mar, 2013 [facility] [address] [id number] [address] [place] [address], [place] [address] Mar, 2013 [facility] [address] [id number] [address] [place] [address], [place] [address] Mar, 2013 [facility] [address] [id number] [address] [place] [address], [place] [address] Mar, 2013 [facility] [address] [id number] [address] [place] [address], [place] [address] Mar, 2013 [facility] [address] [id number] [address] [place] [address], [place] [address] Feb, [facility] [address] [id number] [address] [place] [address], [place] [address] 30 Feb, 2014 [facility] [address] [id number] [address] [place] [address], [place] [address] Feb, [facility] [address] [id number] [address] [place] [address], [place] [address] Feb, [facility] [address] [id number] [address] [place] [address], [place] [address] Feb, [facility] [address] [id number] [address] [place] [address], [place] [address] 23 Feb, 2014 [facility] [address] [id number] [address] [place] [address], [place] [address] 20 Feb, 2014 [facility] [address] [id number] [address] [place] [address], [place] [address] 16 Feb, 2014 [facility] [address] [id number] [address] [place] [address], [place] [address] Feb, [facility] [address] [id number] [facility] [place] [address] Feb, [facility] [address] [id number] [facility] [place] [address] Feb, [facility] [address] [id number] [facility] [place] [address] Feb, [facility] [address] [id number] [address] [place] [address], [place] [address] Feb, [facility] [address] [id number] [facility] [place] [address] January, [facility] [address] [id number] [address] [place] [address], [place] [address] January, [facility] [address] [id number] [address] [place] [address], [place] [address] January, [facility] [address] [id number] [address] [place] [address], [place] [address] January, [facility] [address] [id number] [address] [place] [address], [place] [address] January, [facility] [address] [id number] [address] [place] [address], [place] [address] January, [facility] [address] [id number] [address] [place] [address], [place] [address] January, [facility] [address] [id number] [address] [place] [address], [place] [address] January, [facility] [address] [id number] [address] [place] [address], [place] [address] January, [facility] [address] [id number] [address] [place] [address], [place] [address] January, [facility] [address] [id number] [address] [place] [address], [place] [address] January, [facility] [address] [id number] [address] [place] [address], [place] [address] January, [facility] [address] [id number] [facility] [place] [address] January, [facility] [address] [id number] [address] [place] [address], [place] [address] January, [facility] [address] [id number] [address] [place] [address], [place] [address] Dec, [facility] [address] [id number] [address] [place] [address], [place] [address] Dec, [facility] [address] [id number] [address] [place] [address], [place] [address] Dec, [facility] [address] [id number] [address] [place] [address], [place] [address] Dec, [facility] [address] [id number] [address] [place] [address], [place] [address] Dec, [facility] [address] [id number] [address] [place] [address], [place] [address] Dec, [facility] [address] [id number] [address] [place] [address], [place] [address] Dec, [facility] [address] [id number] [address] [place] [address], [place] [address] Dec, [facility] [address] [id number] [address] [place] [address], [place] [address] Nov, [facility] [address] [id number] [address] [place] [address], [place] [address] Nov, [facility] [address] [id number] [address] [place] [address], [place] [address] Nov, [facility] [address] [id number] [address] [place] [address], [place] [address] Nov, [facility] [address] [id number] [address] [place] [address], [place] [address] Oct, [facility] [address] [id number] [address] [place] [address], [place] [address] Oct, [facility] [address] [id number] [address] [place] [address], [place] [address] Oct, [facility] [address] [id number] [address] [place] [address], [place] [address] Oct, [facility] [address] [id number] [address] [place] [address], [place] [address] Oct, [facility] [address] [id number] [address] [place], [place] [address], [place] [address] Oct, [facility] [address] [id number] [address] [place] [address], [place] [address] Sep, [facility] [address] [id number] [address] [place] [address], [place] [address] Sep, [facility] [address] [id number] [address] [place] [address], [place] [address] Sep, [facility] [address] [id number] [address] [place] [address], [place] [address] Sep, [facility] [address] [id number] [address] [place] [address], [place] [address] Sep, [facility] [address] [id number] [address] [place] [address], [place] [address] Sep, [facility] [address] [id number] [address] [place] [address], [place] [address] Sep, [facility] [address] [id number] [address] [place] [address], [place] [address] Sep, [facility] [address] [id number] [address] [place] [address], [place] [address] Sep, [facility] [address] [id number] [address] [place] [address], [place] [address] Sep, [facility] [address] [id number] [address] [place] [address], [place] [address] Aug, [facility] [address] [id number] [address] [place] [address], [place] [address] Aug, [facility] [address] [id number] [address] [place] [address], [place] [address] Aug, [facility] [address] [id number] [address] [place] [address], [place] [address] Aug, [facility] [address] [id number] [address] [place] [address], [place] [address] Aug, [facility] [address] [id number] [address] [place] [address], [place] [address] Aug, [facility] [address] [id number] [address] [place] [address], [place] [address] Aug, [facility] [address] [id number] [address] [place] [address], [place] [address] Aug, [facility] [address] [id number] [address] [place] [address], [place] [address] Jul, [facility] [address] [id number] [address] [place] [address], [place] [address] Jul, [facility] [address] [id number] [address] [place] [address] Jul, [facility] [address] [id number] [address] [place] [address] Jul, [facility] [address] [id number] [address] [place] [address] Jul, [facility] [address] [id number] [address] [place] [address] Jul, [facility] [address] [id number] [address] [place] [address] Jul, [facility] [address] [id number] [address] [place] [address] Jul, [facility] [address] [id number] [address] [place] [address] Jul, [facility] [address] [id number] [address] [place] [address], [place] [address] Jul, [facility] [address] [id number] [address] [place] [address] Jul, [facility] [address] [id number] [address] [place] [address], [place] [address] Jul, [facility] [address] [id number] [address] [place] [address], [place] [address] 30 Jun, 2013 [facility] [address] [id number] [address] [place] [address], [place] [address] 30 Jun, 2013 [facility] [address] [id number] [address] [place] [address], [place] [address] 29 Jun, 2013 [facility] [address] [id number] [address] [place] [address] Jun, [facility] [address] [id number] [address] [place] [address], [place] [address] Jun, [facility] [address] [id number] [address] [place] [address], [place] [address] Jun, [facility] [address] [id number] [address] [place] [address] 16 Jun, 2013 [facility] [address] [id number] [address] [place] [address] 02 Jun, 2013 [facility] [address] [id number] [address] [place] [address] 25 May, 2012 [facility] [address] [id number] [address] [place] [address], [place] [address] 18 Sep, 2012 [facility] [address] [id number] [address] [place] [address] 11 May, 2012 [facility] [address] [id number] [address] [place] [address] 10 May, 2012 [facility] [address] [id number] [facility] [place] [address] May, [facility] [address] [id number] [address] [place] [address], [place] [address] May, [facility] [address] [id number] [address] [place] [address], [place] [address] Apr, [facility] [address] [id number] [address] [place] [address], [place] [address] Apr, [facility] [address] [id number] [address] [place] [address], [place] [address] Apr, [facility] [address] [id number] [address] [place] [address], [place] [address] Apr, [facility] [address] [id number] [address] [place] [address], [place] [address] Apr, [facility] [address] [id number] [address] [place] [address], [place] [address] Mar, [facility] [address] [id number] [address] [place] [address], [place] [address] Mar, [facility] [address] [id number] [address] [place] [address], [place] [address] Mar, [facility] [address] [id number] [address] [place] [address], [place] [address] Feb, [facility] [address] [id number] [address] [place] [address], [place] [address] Feb, [facility] [address] [id number] [address] [place] [address], [place] [address] Feb, [facility] [address] [id number] [address] [place] [address], [place] [address] January, [facility] [address] [id number] [address] [place] [address], [place] [address] January, [facility] [address] [id number] [address] [place] [address] [address] Dec, [facility] [address] [facility] [id number] [address] [place] [address] Nov, [facility] [address] [facility] [id number] [address] [place] [address] Nov, IMMUNIZATIONS No Known Immunizations SOCIAL HISTORY Never Assessed REASON FOR VISIT EMR-[facility] PLAN OF CARE VITAL SIGNS MEDICATIONS No [...]
--- OUTSIDE RECORDS SUMMARY | 2019-12-04 12:02 | XMS REPORT ---
Author Author Shireen Moyer Doctor Organization [facility] Address Unknown Phone Unavailable Care Team Providers Care Molder Apprentice Name Role Phone Migration, Doctor Unavailable Unavailable PROBLEMS Type Condition ICD9-CM Code [id number] Code Onset Dates Condition S tatus SNOMED Code Problem Bipolar disorder, current episode depressed, moderate F31.32 Active 351750402 Problem Anorexia nervosa F50.00 Active 568 93303 Problem Personality disorder, unspecified F60.9 Active 08773115 Problem Post-traumatic stress disorder, chronic F43.12 Active [id number] ALLERGIES No Information ENCOUNTERS Encounter Location Date Diagnosis [place] [address] [address] Jul, Bipolar disorder, current ep isode depressed, moderate F31.32 and Anorexia nervosa F50.00 [place] [address] [place] [id number] [place] [address] Jul, [place] [address] [place] [id number] [place] [address] Jul, [facility] [address] [place] [id number] [address] [place] [address] Jul, [facility] [address] [place] [id number] [address] [place] [address] Jun, Bipolar disorder, current ep isode depressed, moderate F31.32 ; Post-traumatic stress disorder, chronic F43.12 and Eating disorder, unspecified F50.9 [facility] [address] [facility] [id number] [address] [place] [address] May, [facility] [address] [place] [id number] [place] [address] Apr, Bipolar disorder, current ep isode depressed, moderate F31.32 ; Post-traumatic stress disorder, chronic F43.12 and Eating disorder, unspecified F50.9 [facility] [address] [id number] [address] [place] [address] 14 Feb, 2016 Bipolar disorder, current ep isode depressed, moderate F31.32 ; Post-traumatic stress disorder, chronic F43.12 and Personality disorder, unspecified F60.9 [facility] [address] [id number] [address] [place] [address] 14 Feb, 2016 Bipolar II disorder F31.81 [facility] [address] [id number] [address] [place] [address] Dec, Bipolar disorder, current ep isode depressed, moderate F31.32 ; Post-traumatic stress disorder, chronic F43.12 and Personality disorder, unspecified F60.9 [place] [address] [id number] [address] [place] [address] Dec, Bipolar disorder, current ep isode depressed, moderate F31.32 ; Post-traumatic stress disorder, chronic F43.12 and Personality disorder, unspecified F60.9 [place] [address] [id number] [address] [place] [address] Dec, [facility] [address] [id number] [address] [place] [address] Dec, [place] [address] [facility] [id number] [address] [place] [address] Dec, Bipolar disorder, current ep isode depressed, moderate F31.32 ; Post-traumatic stress disorder, chronic F43.12 and Personality disorder, unspecified F60.9 [place] [address] [id number] [address] [place] [address] Nov, [facility] [address] [id number] [address] [place] [address] Nov, Bipolar disorder, current ep isode depressed, moderate F31.32 ; Post-traumatic stress disorder, chronic F43.12 and Personality disorder, unspecified F60.9 [facility] [address] [id number] [address] [place] [address] Nov, Bipolar disorder, current ep isode depressed, moderate F31.32 ; Post-traumatic stress disorder, chronic F43.12 and Personality disorder, unspecified F60.9 [place] [address] [id number] [address] [place] [address] Oct, [facility] [address] [id number] [address] [place], [place] [address] Oct, Bipolar disorder, current ep isode depressed, moderate F31.32 ; Post-traumatic stress disorder, chronic F43.12 and Personality disorder, unspecified F60.9 [place] [address] [facility] [id number] [address] [place] [address] Oct, Bipolar disorder, current ep isode depressed, moderate F31.32 ; Post-traumatic stress disorder, chronic F43.12 and Personality disorder, unspecified F60.9 [place] [address] [facility] [id number] [address] [place] [address] Aug, Bipolar II disorder F31.81 a nd Post-traumatic stress disorder, unspecified F43.10 [place] [address] [facility] [id number] [address] [place] [address] Aug, Bipolar disorder, current ep isode depressed, moderate F31.32 ; Post-traumatic stress disorder, chronic F43.12 and Personality disorder, unspecified F60.9 [place] [address] [facility] [id number] [address] [place] [address] Jul, Bipolar disorder, unspecifie d 296.80 and Posttraumatic stress disorder 309.81 [facility] [address] [id number] [address] [place] [address] Jul, Post-traumatic stress disord er, chronic F43.12 ; Personality disorder, unspecified F60.9 and Bipolar disorder, current episode depressed, moderate F31.32 [facility] [address] [id number] [address] [place] [address] Jun, Bipolar disorder, unspecifie d 296.80 and Posttraumatic stress disorder 309.81 [facility] [address] [id number] [address] [place] [address] Jun, Bipolar disorder, unspecifie d 296.80 and Posttraumatic stress disorder 309.81 [facility] [address] [id number] [address] [place] [address] Jun, Posttraumatic stress disorde r 309.81 and Bipolar disorder, unspecified 296.80 [facility] [address] [id number] [address] [place] [address] May, Bipolar II disorder 296.89 a nd Post traumatic stress disorder 309.81 [facility] [address] [id number] [address] [place] [address] May, Bipolar II disorder 296.89 a nd Post traumatic stress disorder 309.81 [facility] [address] [facility] [id number] [address] [place] [address] May, [facility] [address] [id number] [address] [place] [address] May, [facility] [address] [facility] [id number] [address] [place] [address] May, [facility] [address] [facility] [id number] [address] [place] [address] May, [facility] [address] [facility] [id number] [address] [place] [address] May, Bipolar II disorder 296.89 a nd Post traumatic stress disorder 309.81 [facility] [address] [id number] [address] [place] [address] May, Bipolar I disorder, most rec ent episode (or current) depressed, moderate 296.52 ; Posttraumatic stress disorder 309.81 and Anxiety state, unspecified 300.00 [facility] [address] [id number] [address] [place] [address] Apr, Bipolar II disorder 296.89 a nd Post traumatic stress disorder 309.81 [facility] [address] [facility] [id number] [address] [place] [address] Apr, [facility] [address] [id number] [address] [place] [address] Apr, Bipolar II disorder 296.89 a nd Post traumatic stress disorder 309.81 [facility] [address] [id number] [address] [place] [address] Apr, Bipolar II disorder 296.89 a nd Post traumatic stress disorder 309.81 [facility] [address] [id number] [address] [place] [address] Mar, Bipolar II disorder 296.89 a nd Post traumatic stress disorder 309.81 [facility] [address] [id number] [address] [place] [address] Mar, [facility] [address] [facility] [id number] [address] [place] [address] Mar, Bipolar II disorder 296.89 a nd Post traumatic stress disorder 309.81 [facility] [address] [id number] [address] [place] [address] Mar, Bipolar II disorder 296.89 a nd Post traumatic stress disorder 309.81 [facility] [address] [id number] [address] [place] [address] Mar, Bipolar II disorder 296.89 a nd Post traumatic stress disorder 309.81 [facility] [address] [id number] [address] [place] [address] Mar, [facility] [address] [id number] [address] [place] [address] Mar, Bipolar II disorder 296.89 a nd Post traumatic stress disorder 309.81 [facility] [address] [id number] [address] [place] [address] Feb, Bipolar II disorder 296.89 a nd Post traumatic stress disorder 309.81 [facility] [address] [id number] [address] [place] [address] Feb, [facility] [address] [id number] [address] [place] [address] Feb, Bipolar disorder, unspecifie d 296.80 and Anxiety state, unspecified 300.00 [facility] [address] [id number] [address] [place] [address] Feb, [facility] [address] [id number] [address] [place] [address] Feb, [facility] [address] [id number] [address] [place] [address] January, [facility] [address] [id number] [address] [place] [address] Dec, [facility] [address] [id number] [address] [place] [address] Dec, [facility] [address] [id number] [address] [place] [address] Nov, [facility] [address] [id number] [address] [place] [address] Nov, [facility] [address] [id number] [address] [place] [address] Nov, [facility] [address] [id number] [address] [place] [address] Nov, [facility] [address] [id number] [address] [place] [address] Nov, [facility] [address] [id number] [address] [place] [address] Nov, [facility] [address] [id number] [address] [place] [address] Nov, [facility] [address] [id number] [address] [place] [address] Nov, [facility] [address] [id number] [address] [place] [address] Nov, [facility] [address] [id number] [address] [place] [address], [place] [address] Oct, [facility] [address] [id number] [address] [place] [address], [place] [address] Oct, [facility] [address] [id number] [address] [place] [address], [place] [address] Oct, 2014 [facility] [address] [id number] [address] [place] [address], [place] [address] Oct, 2014 [facility] [address] [id number] [address] [place] [address], [place] [address] Oct, [facility] [address] [id number] [address] [place] [address], [place] [address] Oct, [facility] [address] [id number] [address] [place] [address], [place] [address] Oct, [facility] [address] [id number] [address] [place] [address], [place] [address] Oct, [facility] [address] [id number] [address] [place] [address], [place] [address] Sep, [facility] [address] [id number] [address] [place] [address], [place] [address] Sep, [facility] [address] [id number] [address] [place] [address], [place] [address] Sep, [facility] [address] [id number] [address] [place] [address], [place] [address] Sep, [facility] [address] [id number] [address] [place] [address], [place] [address] Sep, [facility] [address] [id number] [address] [place] [address], [place] [address] Sep, [facility] [address] [id number] [address] [place] [address], [place] [address] Sep, [facility] [address] [id number] [address] [place] [address], [place] [address] Sep, [facility] [address] [id number] [address] [place] [address], [place] [address] Sep, [facility] [address] [id number] [address] [place] [address], [place] [address] Sep, [facility] [address] [id number] [address] [place] [address], [place] [address] Aug, [facility] [address] [id number] [address] [place] [address], [place] [address] Aug, [facility] [address] [id number] [address] [place] [address], [place] [address] Aug, [facility] [address] [id number] [address] [place] [address], [place] [address] Aug, [facility] [address] [id number] [address] [place] [address], [place] [address] Aug, [facility] [address] [id number] [address] [place] [address], [place] [address] Aug, [facility] [address] [id number] [address] [place] [address], [place] [address] Aug, [facility] [address] [id number] [address] [place] [address], [place] [address] Aug, [facility] [address] [id number] [address] [place] [address], [place] [address] Jul, [facility] [address] [id number] [address] [place] [address], [place] [address] Jul, [facility] [address] [id number] [address] [place] [address], [place] [address] Jul, [facility] [address] [id number] [address] [place] [address], [place] [address] Jul, [facility] [address] [id number] [address] [place] [address], [place] [address] Jul, [facility] [address] [id number] [address] [place] [address], [place] [address] Jul, [facility] [address] [id number] [address] [place] [address], [place] [address] Jul, [facility] [address] [id number] [address] [place] [address], [place] [address] Jul, [facility] [address] [id number] [address] [place] [address], [place] [address] Jul, [facility] [address] [id number] [address] [place] [address], [place] [address] Jun, [facility] [address] [id number] [address] [place] [address], [place] [address] Jun, [facility] [address] [id number] [address] [place] [address], [place] [address] Jun, [facility] [address] [id number] [address] [place] [address], [place] [address] Jun, [facility] [address] [id number] [address] [place] [address], [place] [address] Jun, [facility] [address] [id number] [address] [place] [address], [place] [address] Jun, [facility] [address] [id number] [address] [place] [address], [place] [address] 25 May, 2013 [facility] [address] [id number] [address] [place] [address], [place] [address] 25 Sep, 2013 [facility] [address] [id number] [address] [place] [address], [place] [address] 16 Sep, 2013 [facility] [address] [id number] [address] [place] [address], [place] [address] 16 Sep, 2013 [facility] [address] [id number] [address] [place] [address], [place] [address] 05 Sep, 2013 [facility] [address] [id number] [address] [place] [address], [place] [address] May, [facility] [address] [id number] [address] [place] [address], [place] [address] Apr, [facility] [address] [id number] [address] [place] [address], [place] [address] Apr, [facility] [address] [id number] [address] [place] [address], [place] [address] Apr, [facility] [address] [id number] [address] [place] [address], [place] [address] Apr, [facility] [address] [id number] [address] [place] [address], [place] [address] Apr, [facility] [address] [id number] [address] [place] [address], [place] [address] Apr, [facility] [address] [id number] [address] [place] [address], [place] [address] Mar, [facility] [address] [id number] [address] [place] [address], [place] [address] Mar, [facility] [address] [id number] [address] [place] [address], [place] [address] Mar, [facility] [address] [id number] [address] [place] [address], [place] [address] Mar, [facility] [address] [id number] [address] [place] [address], [place] [address] Mar, [facility] [address] [id number] [address] [place] [address], [place] [address] Mar, [facility] [address] [id number] [address] [place] [address], [place] [address] Mar, [facility] [address] [id number] [address] [place] [address], [place] [address] Mar, [facility] [address] [id number] [address] [place] [address], [place] [address] Mar, [facility] [address] [id number] [address] [place] [address], [place] [address] Mar, 2013 [facility] [address] [id number] [address] [place] [address], [place] [address] Mar, 2013 [facility] [address] [id number] [address] [place] [address], [place] [address] Mar, 2013 [facility] [address] [id number] [address] [place] [address], [place] [address] Mar, 2013 [facility] [address] [id number] [address] [place] [address], [place] [address] Mar, 2013 [facility] [address] [id number] [address] [place] [address], [place] [address] Mar, 2013 [facility] [address] [id number] [address] [place] [address], [place] [address] Mar, 2013 [facility] [address] [id number] [address] [place] [address], [place] [address] Feb, [facility] [address] [id number] [address] [place] [address], [place] [address] 30 Feb, 2014 [facility] [address] [id number] [address] [place] [address], [place] [address] Feb, [facility] [address] [id number] [address] [place] [address], [place] [address] Feb, [facility] [address] [id number] [address] [place] [address], [place] [address] Feb, [facility] [address] [id number] [address] [place] [address], [place] [address] 23 Feb, 2014 [facility] [address] [id number] [address] [place] [address], [place] [address] 20 Feb, 2014 [facility] [address] [id number] [address] [place] [address], [place] [address] 16 Feb, 2014 [facility] [address] [id number] [address] [place] [address], [place] [address] Feb, [facility] [address] [id number] [address] [place] [address] Feb, [facility] [address] [id number] [address] [place] [address] Feb, [facility] [address] [id number] [address] [place] [address] Feb, [facility] [address] [id number] [address] [place] [address], [place] [address] Feb, [facility] [address] [id number] [address] [place] [address] January, [facility] [address] [id number] [address] [place] [address], [place] [address] January, [facility] [address] [id number] [address] [place] [address], [place] [address] January, [facility] [address] [id number] [address] [place] [address], [place] [address] January, [facility] [address] [id number] [address] [place] [address], [place] [address] January, [facility] [address] [id number] [address] [place] [address], [place] [address] January, [facility] [address] [id number] [address] [place] [address], [place] [address] January, [facility] [address] [id number] [address] [place] [address], [place] [address] January, [facility] [address] [id number] [address] [place] [address], [place] [address] January, [facility] [address] [id number] [address] [place] [address], [place] [address] January, [facility] [address] [id number] [address] [place] [address], [place] [address] January, [facility] [address] [id number] [address] [place] [address], [place] [address] January, [facility] [address] [id number] [address] [place] [address] January, [facility] [address] [id number] [address] [place] [address], [place] [address] January, [facility] [address] [id number] [address] [place] [address], [place] [address] Dec, [facility] [address] [id number] [address] [place] [address], [place] [address] Dec, [facility] [address] [id number] [address] [place] [address], [place] [address] Dec, [facility] [address] [id number] [address] [place] [address], [place] [address] Dec, [facility] [address] [id number] [address] [place] [address], [place] [address] Dec, [facility] [address] [id number] [address] [place] [address], [place] [address] Dec, [facility] [address] [id number] [address] [place] [address], [place] [address] Dec, [facility] [address] [id number] [address] [place] [address], [place] [address] Dec, [facility] [address] [id number] [address] [place] [address], [place] [address] Nov, [facility] [address] [id number] [address] [place] [address], [place] [address] Nov, [facility] [address] [id number] [address] [place] [address], [place] [address] Nov, [facility] [address] [id number] [address] [place] [address], [place] [address] Nov, [facility] [address] [id number] [address] [place] [address], [place] [address] Oct, [facility] [address] [id number] [address] [place] [address], [place] [address] Oct, [facility] [address] [id number] [address] [place] [address], [place] [address] Oct, [facility] [address] [id number] [address] [place] [address], [place] [address] Oct, [facility] [address] [id number] [address] [place] [address], [place] [address] Oct, [facility] [address] [id number] [address] [place] [address], [place] [address] Oct, [facility] [address] [id number] [address] [place] [address], [place] [address] Sep, [facility] [address] [id number] [address] [place] [address], [place] [address] Sep, [facility] [address] [id number] [address] [place] [address], [place] [address] Sep, [facility] [address] [id number] [address] [place] [address], [place] [address] Sep, [facility] [address] [id number] [address] [place] [address], [place] [address] Sep, [facility] [address] [id number] [address] [place] [address], [place] [address] Sep, [facility] [address] [id number] [address] [place] [address], [place] [address] Sep, [facility] [address] [id number] [address] [place] [address], [place] [address] Sep, [facility] [address] [id number] [address] [place] [address], [place] [address] Sep, [facility] [address] [id number] [address] [place] [address], [place] [address] Sep, [facility] [address] [id number] [address] [place] [address], [place] [address] Aug, [facility] [address] [id number] [address] [place] [address], [place] [address] Aug, [facility] [address] [id number] [address] [place] [address], [place] [address] Aug, [facility] [address] [id number] [address] [place] [address], [place] [address] Aug, [facility] [address] [id number] [address] [place] [address], [place] [address] Aug, [facility] [address] [id number] [address] [place] [address], [place] [address] Aug, [facility] [address] [id number] [address] [place] [address], [place] [address] Aug, [facility] [address] [id number] [address] [place] [address], [place] [address] Aug, [facility] [address] [id number] [address] [place] [address], [place] [address] Jul, [facility] [address] [id number] [address] [place] [address], [place] [address] Jul, [facility] [address] [id number] [address] [place] [address] Jul, [facility] [address] [id number] [address] [place] [address] Jul, [facility] [address] [id number] [address] [place] [address] Jul, [facility] [address] [id number] [address] [place] [address] Jul, [facility] [address] [id number] [address] [place] [address] Jul, [facility] [address] [id number] [address] [place] [address] Jul, [facility] [address] [id number] [address] [place] [address] Jul, [facility] [address] [id number] [address] [place] [address], [place] [address] Jul, [facility] [address] [id number] [address] [place] [address] Jul, [facility] [address] [id number] [address] [place] [address], [place] [address] Jul, [facility] [address] [id number] [address] [place] [address], [place] [address] 30 Jun, 2013 [facility] [address] [id number] [address] [place] [address], [place] [address] 30 Jun, 2013 [facility] [address] [id number] [address] [place] [address], [place] [address] 29 Jun, 2013 [facility] [address] [id number] [address] [place] [address] Jun, [facility] [address] [id number] [address] [place] [address], [place] [address] Jun, [facility] [address] [id number] [address] [place] [address], [place] [address] Jun, [facility] [address] [id number] [address] [place] [address] 16 Jun, 2013 [facility] [address] [id number] [address] [place] [address] 02 Jun, 2013 [facility] [address] [id number] [address] [place] [address] 25 May, 2012 [facility] [address] [id number] [address] [place] [address], [place] [address] 18 Sep, 2012 [facility] [address] [id number] [address] [place] [address] 11 May, 2012 [facility] [address] [id number] [address] [place] [address] 10 May, 2012 [facility] [address] [id number] [address] [place] [address] May, [facility] [address] [id number] [address] [place] [address], [place] [address] May, [facility] [address] [id number] [address] [place] [address], [place] [address] Apr, [facility] [address] [id number] [address] [place] [address], [place] [address] Apr, [facility] [address] [id number] [address] [place] [address], [place] [address] Apr, [facility] [address] [id number] [address] [place] [address], [place] [address] Apr, [facility] [address] [id number] [address] [place] [address], [place] [address] Apr, [facility] [address] [id number] [address] [place] [address], [place] [address] Mar, [facility] [address] [id number] [address] [place] [address], [place] [address] Mar, [facility] [address] [id number] [address] [place] [address], [place] [address] Mar, [facility] [address] [id number] [address] [place] [address], [place] [address] Feb, [facility] [address] [id number] [address] [place] [address], [place] [address] Feb, [facility] [address] [id number] [address] [place] [address], [place] [address] Feb, [facility] [address] [id number] [address] [place] [address], [place] [address] January, [facility] [address] [id number] [address] [place] [address], [place] [address] January, [facility] [address] [id number] [address] [place] [address] [address] Dec, [facility] [address] [facility] [id number] [address] [place] [address] Nov, [facility] [address] [facility] [id number] [address] [place] [address] Nov, IMMUNIZATIONS No Known Immunizations SOCIAL HISTORY Never Assessed REASON FOR VISIT EMR-[facility] [place] PLAN OF CARE [...]
--- OUTSIDE RECORDS SUMMARY | 2019-12-04 12:03 | XMS REPORT ---
Author Author Shireen AVERY [facility] eClinicalWorks Address Unknown Phone Unavailable Care Team Providers Care Executive Relations Specialist Name Role Phone SONAL AVERY Unavailable Allergies No Known Allergies Problems Problem Type Condition ICD-9 Code Onset Dates Condition Statu s Problem Unspecified personality disorder 301.9 Active Problem Other and unspecified bipolar disorders 296.89 Active Problem Major depressive disorder, recurrent episode, moderate 296.32 Active Problem Bipolar I disorder, most rec ent episode (or current) depressed, moderate 296.52 Active Problem Posttraumatic stress disorder 309.81 Active Problem Social phobia 300.23 Active Problem Anxiety state, unspecified 300.00 A ctive Problem Bipolar disorder, unspecified 296.80 Active Medications No Known Medications Results No Known Results Summary Purpose eClinicalWorks Submission
--- OUTSIDE RECORDS SUMMARY | 2019-12-04 12:03 | XMS REPORT ---
Author Author Shireen YOUNGER [facility] eClinicalWorks Address Unknown Phone Unavailable Care Team Providers Care Loan Counselor Name Role Phone PEMA YOUNGER CP Unavailable Allergies No Known Allergies Problems Problem Type Condition ICD-9 Code Onset Dates Condition Statu s Assessment Post traumatic stress disorder 309.81 Active Problem Unspecified personality disorder 301.9 Active Assessment Bipolar II disorder 296.89 Active Problem Other and unspecified bipolar disorders 296.89 Active Problem Major depressive disorder, recurrent episode, moderate 296.32 Active Problem Bipolar I disorder, most rec ent episode (or current) depressed, moderate 296.52 Active Problem Posttraumatic stress disorder 309.81 Active Problem Social phobia 300.23 Active Problem Anxiety state, unspecified 300.00 A ctive Problem Bipolar disorder, unspecified 296.80 Active Medications No Known Medications Procedures Procedure Coding System Code Date Psychotherapy, patient &/family, 45 minutes, established patient CPT-4 48584 Jun 14, 2015 Results No Known Results Summary Purpose eClinicalWorks Submission
--- OUTSIDE RECORDS SUMMARY | 2019-12-04 12:03 | XMS REPORT ---
Author Author Shireen YOUNGER [facility] eClinicalWorks Address Unknown Phone Unavailable Care Team Providers Care Administrative Analyst Name Role Phone PEMA YOUNGER CP Unavailable Allergies No Known Allergies Problems Problem Type Condition Code Onset Dates Condition Statu s Problem Post-traumatic stress disorder, chronic F43.12 Active Problem Personality disorder, unspecified F60.9 Active Problem Bipolar disorder, current episode depressed, moderate F31.32 Active Assessment Personality disorder, unspecified F60.9 Active Assessment Bipolar disorder, current episode depressed, moderate F31.32 Active Assessment Post-traumatic stress disorder, chronic F43.12 Active Medications No Known Medications Procedures Procedure Coding System Code Date Psychotherapy, patient &/family, 45 minutes, established patient CPT-4 90844 Sep 11, 2015 Results No Known Results Summary Purpose eClinicalWorks Submission
--- OUTSIDE RECORDS SUMMARY | 2019-12-04 12:03 | XMS REPORT ---
Author Author Shireen AVERY [facility] eClinicalWorks Address Unknown Phone Unavailable Care Team Providers Care Per Diem Interpreter Name Role Phone SONAL AVERY CP Unavailable Allergies, Adverse Reactions, Alerts Substance Reaction Event Type Compazine hallucinations Drug Allergy Venlafaxine HCl "tense" Drug Allergy Problems Problem Type Condition ICD-9 Code Onset Dates Condition Statu s Assessment Posttraumatic stress disorder 309.81 Active Problem Unspecified personality disorder 301.9 Active Assessment Bipolar I disorder, most rec ent episode (or current) depressed, moderate 296.52 Active Assessment Anxiety state, unspecified 300.00 A ctive Problem Other and unspecified bipolar disorders 296.89 Active Problem Major depressive disorder, recurrent episode, moderate 296.32 Active Problem Bipolar I disorder, most rec ent episode (or current) depressed, moderate 296.52 Active Problem Posttraumatic stress disorder 309.81 Active Problem Social phobia 300.23 Active Problem Anxiety state, unspecified 300.00 A ctive Problem Bipolar disorder, unspecified 296.80 Active Medications Medication Code System Code Instructions Start Date End Date Status Dosage PredniSONE [facility] [address]-71 5 mg Sep 28, 2014 3 Tablet by Oral route 1 time per day Lamictal [facility] [address]-60 150 MG Orally December 06, 2014 2 Tablet by Oral route 1 time per day Enbrel [facility] [address]-49 25 mg (1 mL) March 20, 2013 1 Injectable 2 times per week Methotrexate (Anti-Rheumatic) [facility] [address]-62 March 20 3 by Oral route Klonopin [facility] [address]-58 1 MG Orally Three times a d ay PRN anxiety May 28, 2015 1 tablet Latuda [facility] [address]-93 20 MG Orally Mg e one tab daily with food for 7 days then increase to 2 tablets orally once daily with food thereafter May 28, 2015 1 tablet Procedures Procedure Coding System Code Date Office Visit, Est Pt., Level 3 CPT-4 77318 S ept 2014 Vital Signs Date/Time: May 28, 2015 Temperature 98.0 F Weight 125.5 lbs Height 69 in BMI 18.53 Index Blood Pressure Diastolic 56 mmHg Blood Pressure Systolic 98 mmHg Cardiac Monitoring Heart Rate 96 bpm Results No Known Results Summary Purpose eClinicalWorks Submission
--- OUTSIDE RECORDS SUMMARY | 2019-12-04 12:03 | XMS REPORT ---
Author Author Shireen Moyer Doctor Organization [facility] Address Unknown Phone Unavailable Care Team Providers Care Crossbar Frame Wirer Name Role Phone Migration, Doctor Unavailable Unavailable PROBLEMS Type Condition ICD9-CM Code [id number] Code Onset Dates Condition S tatus SNOMED Code Problem Bipolar disorder, current episode depressed, moderate F31.32 Active 090276172 Problem Anorexia nervosa F50.00 Active 568 98236 Problem Personality disorder, unspecified F60.9 Active [id number] Problem Post-traumatic stress disorder, chronic F43.12 Active [id number] ALLERGIES No Information ENCOUNTERS Encounter Location Date Diagnosis [place] [address] [address] Jul, Bipolar disorder, current ep isode depressed, moderate F31.32 and Anorexia nervosa F50.00 [place] [address] [place] [id number] [address] [place] [address] Jul, [place] [address] [place] [id number] [address] [place] [address] Jul, [facility] [address] [place] [id number] [address] [place] [address] Jul, [facility] [address] [place] [id number] [address] [place] [address] Jun, Bipolar disorder, current ep isode depressed, moderate F31.32 ; Post-traumatic stress disorder, chronic F43.12 and Eating disorder, unspecified F50.9 [facility] [address] [facility] [id number] [address] [place] [address] May, [facility] [address] [place] [id number] [address] [place] [address] Apr, Bipolar disorder, current ep isode depressed, moderate F31.32 ; Post-traumatic stress disorder, chronic F43.12 and Eating disorder, unspecified F50.9 [facility] [address] [id number] [address] [place] [address] 14 Feb, 2016 Bipolar disorder, current ep isode depressed, moderate F31.32 ; Post-traumatic stress disorder, chronic F43.12 and Personality disorder, unspecified F60.9 [facility] [address] [id number] [address] [place] [address] 14 Feb, 2016 Bipolar II disorder F31.81 [facility] [address] [id number] [address] [place] [address] Dec, Bipolar disorder, current ep isode depressed, moderate F31.32 ; Post-traumatic stress disorder, chronic F43.12 and Personality disorder, unspecified F60.9 [place] [address] [id number] [address] [place] [address] Dec, Bipolar disorder, current ep isode depressed, moderate F31.32 ; Post-traumatic stress disorder, chronic F43.12 and Personality disorder, unspecified F60.9 [place] [address] [id number] [address] [place] [address] Dec, [facility] [address] [id number] [address] [place] [address] Dec, [place] [address] [facility] [id number] [address] [place] [address] Dec, Bipolar disorder, current ep isode depressed, moderate F31.32 ; Post-traumatic stress disorder, chronic F43.12 and Personality disorder, unspecified F60.9 [place] [address] [id number] [address] [place] [address] Nov, [facility] [address] [id number] [address] [place] [address] Nov, Bipolar disorder, current ep isode depressed, moderate F31.32 ; Post-traumatic stress disorder, chronic F43.12 and Personality disorder, unspecified F60.9 [facility] [address] [id number] [address] [place] [address] Nov, Bipolar disorder, current ep isode depressed, moderate F31.32 ; Post-traumatic stress disorder, chronic F43.12 and Personality disorder, unspecified F60.9 [place] [address] [id number] [address] [place] [address] Oct, [facility] [address] [id number] [address] [place], [place] [address] Oct, Bipolar disorder, current ep isode depressed, moderate F31.32 ; Post-traumatic stress disorder, chronic F43.12 and Personality disorder, unspecified F60.9 [place] [address] [facility] [id number] [address] [place] [address] Oct, Bipolar disorder, current ep isode depressed, moderate F31.32 ; Post-traumatic stress disorder, chronic F43.12 and Personality disorder, unspecified F60.9 [place] [address] [facility] [id number] [address] [place] [address] Aug, Bipolar II disorder F31.81 a nd Post-traumatic stress disorder, unspecified F43.10 [place] [address] [facility] [id number] [address] [place] [address] Aug, Bipolar disorder, current ep isode depressed, moderate F31.32 ; Post-traumatic stress disorder, chronic F43.12 and Personality disorder, unspecified F60.9 [place] [address] [facility] [id number] [address] [place] [address] Jul, Bipolar disorder, unspecifie d 296.80 and Posttraumatic stress disorder 309.81 [facility] [address] [id number] [address] [place] [address] Jul, Post-traumatic stress disord er, chronic F43.12 ; Personality disorder, unspecified F60.9 and Bipolar disorder, current episode depressed, moderate F31.32 [facility] [address] [id number] [address] [place] [address] Jun, Bipolar disorder, unspecifie d 296.80 and Posttraumatic stress disorder 309.81 [facility] [address] [id number] [address] [place] [address] Jun, Bipolar disorder, unspecifie d 296.80 and Posttraumatic stress disorder 309.81 [facility] [address] [id number] [address] [place] [address] Jun, Posttraumatic stress disorde r 309.81 and Bipolar disorder, unspecified 296.80 [facility] [address] [id number] [address] [place] [address] May, Bipolar II disorder 296.89 a nd Post traumatic stress disorder 309.81 [facility] [address] [id number] [address] [place] [address] May, Bipolar II disorder 296.89 a nd Post traumatic stress disorder 309.81 [facility] [address] [facility] [id number] [address] [place] [address] May, [facility] [address] [id number] [address] [place] [address] May, [facility] [address] [facility] [id number] [address] [place] [address] May, [facility] [address] [facility] [id number] [address] [place] [address] May, [facility] [address] [facility] [id number] [address] [place] [address] May, Bipolar II disorder 296.89 a nd Post traumatic stress disorder 309.81 [facility] [address] [id number] [address] [place] [address] May, Bipolar I disorder, most rec ent episode (or current) depressed, moderate 296.52 ; Posttraumatic stress disorder 309.81 and Anxiety state, unspecified 300.00 [facility] [address] [id number] [address] [place] [address] Apr, Bipolar II disorder 296.89 a nd Post traumatic stress disorder 309.81 [facility] [address] [facility] [id number] [address] [place] [address] Apr, [facility] [address] [id number] [address] [place] [address] Apr, Bipolar II disorder 296.89 a nd Post traumatic stress disorder 309.81 [facility] [address] [id number] [address] [place] [address] Apr, Bipolar II disorder 296.89 a nd Post traumatic stress disorder 309.81 [facility] [address] [id number] [address] [place] [address] Mar, Bipolar II disorder 296.89 a nd Post traumatic stress disorder 309.81 [facility] [address] [id number] [address] [place] [address] Mar, [facility] [address] [facility] [id number] [address] [place] [address] Mar, Bipolar II disorder 296.89 a nd Post traumatic stress disorder 309.81 [facility] [address] [id number] [address] [place] [address] Mar, Bipolar II disorder 296.89 a nd Post traumatic stress disorder 309.81 [facility] [address] [id number] [address] [place] [address] Mar, Bipolar II disorder 296.89 a nd Post traumatic stress disorder 309.81 [facility] [address] [id number] [address] [place] [address] Mar, [facility] [address] [id number] [address] [place] [address] Mar, Bipolar II disorder 296.89 a nd Post traumatic stress disorder 309.81 [facility] [address] [id number] [address] [place] [address] Feb, Bipolar II disorder 296.89 a nd Post traumatic stress disorder 309.81 [facility] [address] [id number] [address] [place] [address] Feb, [facility] [address] [id number] [address] [place] [address] Feb, Bipolar disorder, unspecifie d 296.80 and Anxiety state, unspecified 300.00 [facility] [address] [id number] [address] [place] [address] Feb, [facility] [address] [id number] [address] [place] [address] Feb, [facility] [address] [id number] [address] [place] [address] January, [facility] [address] [id number] [address] [place] [address] Dec, [facility] [address] [id number] [address] [place] [address] Dec, [facility] [address] [id number] [address] [place] [address] Nov, [facility] [address] [id number] [address] [place] [address] Nov, [facility] [address] [id number] [address] [place] [address] Nov, [facility] [address] [id number] [address] [place] [address] Nov, [facility] [address] [id number] [address] [place] [address] Nov, [facility] [address] [id number] [address] [place] [address] Nov, [facility] [address] [id number] [address] [place] [address] Nov, [facility] [address] [id number] [address] [place] [phone] Nov, [facility] [address] [id number] [address] [place] [address] Nov, [facility] [address] [id number] [address] [place] [address], [place] [address] Oct, [facility] [address] [id number] [address] [place] [address], [place] [address] Oct, [facility] [address] [id number] [address] [place] [address], [place] [address] Oct, 2014 [facility] [address] [id number] [address] [place] [address], [place] [address] Oct, 2014 [facility] [address] [id number] [address] [place] [address], [place] [address] Oct, [facility] [address] [id number] [address] [place] [address], [place] [address] Oct, [facility] [address] [id number] [address] [place] [address], [place] [address] Oct, [facility] [address] [id number] [address] [place] [address], [place] [address] Oct, [facility] [address] [id number] [address] [place] [address], [place] [address] Sep, [facility] [address] [id number] [address] [place] [address], [place] [address] Sep, [facility] [address] [id number] [address] [place] [address], [place] [address] Sep, [facility] [address] [id number] [address] [place] [address], [place] [address] Sep, [facility] [address] [id number] [address] [place] [address], [place] [address] Sep, [facility] [address] [id number] [address] [place] [address], [place] [address] Sep, [facility] [address] [id number] [address] [place] [address], [place] [address] Sep, [facility] [address] [id number] [address] [place] [address], [place] [address] Sep, [facility] [address] [id number] [address] [place] [address], [place] [address] Sep, [facility] [address] [id number] [address] [place] [address], [place] [address] Sep, [facility] [address] [id number] [address] [place] [address], [place] [address] Aug, [facility] [address] [id number] [address] [place] [address], [place] [address] Aug, [facility] [address] [id number] [address] [place] [address], [place] [address] Aug, [facility] [address] [id number] [address] [place] [address], [place] [address] Aug, [facility] [address] [id number] [address] [place] [address], [place] [address] Aug, [facility] [address] [id number] [address] [place] [address], [place] [address] Aug, [facility] [address] [id number] [address] [place] [address], [place] [address] Aug, [facility] [address] [id number] [address] [place] [address], [place] [address] Aug, [facility] [address] [id number] [address] [place] [address], [place] [address] Jul, [facility] [address] [id number] [address] [place] [address], [place] [address] Jul, [facility] [address] [id number] [address] [place] [address], [place] [address] Jul, [facility] [address] [id number] [address] [place] [address], [place] [address] Jul, [facility] [address] [id number] [address] [place] [address], [place] [address] Jul, [facility] [address] [id number] [address] [place] [address], [place] [address] Jul, [facility] [address] [id number] [address] [place] [address], [place] [address] Jul, [facility] [address] [id number] [address] [place] [address], [place] [address] Jul, [facility] [address] [id number] [address] [place] [address], [place] [address] Jul, [facility] [address] [id number] [address] [place] [address], [place] [address] Jun, [facility] [address] [id number] [address] [place] [address], [place] [address] Jun, [facility] [address] [id number] [address] [place] [address], [place] [address] Jun, [facility] [address] [id number] [address] [place] [address], [place] [address] Jun, [facility] [address] [id number] [address] [place] [address], [place] [address] Jun, [facility] [address] [id number] [address] [place] [address], [place] [address] Jun, [facility] [address] [id number] [address] [place] [address], [place] [address] 25 May, 2013 [facility] [address] [id number] [address] [place] [address], [place] [address] 25 Sep, 2013 [facility] [address] [id number] [address] [place] [address], [place] [address] 16 Sep, 2013 [facility] [address] [id number] [address] [place] [address], [place] [address] 16 Sep, 2013 [facility] [address] [id number] [address] [place] [address], [place] [address] 05 Sep, 2013 [facility] [address] [id number] [address] [place] [address], [place] [address] May, [facility] [address] [id number] [address] [place] [address], [place] [address] Apr, [facility] [address] [id number] [address] [place] [address], [place] [address] Apr, [facility] [address] [id number] [address] [place] [address], [place] [address] Apr, [facility] [address] [id number] [address] [place] [address], [place] [address] Apr, [facility] [address] [id number] [address] [place] [address], [place] [address] Apr, [facility] [address] [id number] [address] [place] [address], [place] [address] Apr, [facility] [address] [id number] [address] [place] [address], [place] [address] Mar, [facility] [address] [id number] [address] [place] [address], [place] [address] Mar, [facility] [address] [id number] [address] [place] [address], [place] [address] Mar, [facility] [address] [id number] [address] [place] [address], [place] [address] Mar, [facility] [address] [id number] [address] [place] [address], [place] [address] Mar, [facility] [address] [id number] [address] [place] [address], [place] [address] Mar, [facility] [address] [id number] [address] [place] [address], [place] [address] Mar, [facility] [address] [id number] [address] [place] [address], [place] [address] Mar, [facility] [address] [id number] [address] [place] [address], [place] [address] Mar, [facility] [address] [id number] [address] [place] [address], [place] [address] Mar, 2013 [facility] [address] [id number] [address] [place] [address], [place] [address] Mar, 2013 [facility] [address] [id number] [address] [place] [address], [place] [address] Mar, 2013 [facility] [address] [id number] [address] [place] [address], [place] [address] Mar, 2013 [facility] [address] [id number] [address] [place] [address], [place] [address] Mar, 2013 [facility] [address] [id number] [address] [place] [address], [place] [address] Mar, 2013 [facility] [address] [id number] [address] [place] [address], [place] [address] Mar, 2013 [facility] [address] [id number] [address] [place] [address], [place] [address] Feb, [facility] [address] [id number] [address] [place] [address], [place] [address] 30 Feb, 2014 [facility] [address] [id number] [address] [place] [address], [place] [address] Feb, [facility] [address] [id number] [address] [place] [address], [place] [address] Feb, [facility] [address] [id number] [address] [place] [address], [place] [address] Feb, [facility] [address] [id number] [address] [place] [address], [place] [address] 23 Feb, 2014 [facility] [address] [id number] [address] [place] [address], [place] [address] 20 Feb, 2014 [facility] [address] [id number] [address] [place] [address], [place] [address] 16 Feb, 2014 [facility] [address] [id number] [address] [place] [address], [place] [address] Feb, [facility] [address] [id number] [facility] [place] [address] Feb, [facility] [address] [id number] [facility] [place] [address] Feb, [facility] [address] [id number] [facility] [place] [address] Feb, [facility] [address] [id number] [address] [place] [address], [place] [address] Feb, [facility] [address] [id number] [facility] [place] [address] January, [facility] [address] [id number] [address] [place] [address], [place] [id number] January, [facility] [address] [id number] [address] [place] [address], [place] [address] January, [facility] [address] [id number] [address] [place] [address], [place] [address] January, [facility] [address] [id number] [address] [place] [address], [place] [address] January, [facility] [address] [id number] [address] [place] [address], [place] [address] January, [facility] [address] [id number] [address] [place] [address], [place] [address] January, [facility] [address] [id number] [address] [place] [address], [place] [address] January, [facility] [address] [id number] [address] [place] [address], [place] [address] January, [facility] [address] [id number] [address] [place] [address], [place] [address] January, [facility] [address] [id number] [address] [place] [address], [place] [address] January, [facility] [address] [id number] [address] [place] [address], [place] [address] January, [facility] [address] [id number] [facility] [place] [address] January, [facility] [address] [id number] [address] [place] [address], [place] [address] January, [facility] [address] [id number] [address] [place] [address], [place] [address] Dec, [facility] [address] [id number] [address] [place] [address], [place] [address] Dec, [facility] [address] [id number] [address] [place] [address], [place] [address] Dec, [facility] [address] [id number] [address] [place] [address], [place] [address] Dec, [facility] [address] [id number] [address] [place] [address], [place] [address] Dec, [facility] [address] [id number] [address] [place] [address], [place] [address] Dec, [facility] [address] [id number] [address] [place] [address], [place] [address] Dec, [facility] [address] [id number] [address] [place] [address], [place] [address] Dec, [facility] [address] [id number] [address] [place] [address], [place] [address] Nov, [facility] [address] [id number] [address] [place] [address], [place] [address] Nov, [facility] [address] [id number] [address] [place] [address], [place] [address] Nov, [facility] [address] [id number] [address] [place] [address], [place] [address] Nov, [facility] [address] [id number] [address] [place] [address], [place] [address] Oct, [facility] [address] [id number] [address] [place] [address], [place] [address] Oct, [facility] [address] [id number] [address] [place] [address], [place] [address] Oct, [facility] [address] [id number] [address] [place] [address], [place] [address] Oct, [facility] [address] [id number] [address] [place] [address], [place] [address] Oct, [facility] [address] [id number] [address] [place] [address], [place] [address] Oct, [facility] [address] [id number] [address] [place] [address], [place] [address] Sep, [facility] [address] [id number] [address] [place] [address], [place] [address] Sep, [facility] [address] [id number] [address] [place] [address], [place] [address] Sep, [facility] [address] [id number] [address] [place] [address], [place] [address] Sep, [facility] [address] [id number] [address] [place] [address], [place] [address] Sep, [facility] [address] [id number] [address] [place] [address], [place] [address] Sep, [facility] [address] [id number] [address] [place] [address], [place] [address] Sep, [facility] [address] [id number] [address] [place] [address], [place] [address] Sep, [facility] [address] [id number] [address] [place] [address], [place] [address] Sep, [facility] [address] [id number] [address] [place] [address], [place] [address] Sep, [facility] [address] [id number] [address] [place] [address], [place] [address] Aug, [facility] [address] [id number] [address] [place] [address], [place] [address] Aug, [facility] [address] [id number] [address] [place] [address], [place] [address] Aug, [facility] [address] [id number] [address] [place] [address], [place] [address] Aug, [facility] [address] [id number] [address] [place] [address], [place] [address] Aug, [facility] [address] [id number] [address] [place] [address], [place] [address] Aug, [facility] [address] [id number] [address] [place] [address], [place] [address] Aug, [facility] [address] [id number] [address] [place] [address], [place] [address] Aug, [facility] [address] [id number] [address] [place] [address], [place] [address] Jul, [facility] [address] [id number] [address] [place] [address], [place] [address] Jul, [facility] [address] [id number] [address] [place] [address] Jul, [facility] [address] [id number] [address] [place] [id number] Jul, [facility] [address] [id number] [address] [place] [address] Jul, [facility] [address] [id number] [address] [place] [address] Jul, [facility] [address] [id number] [address] [place] [id number] Jul, [facility] [address] [id number] [address] [place] [id number] Jul, [facility] [address] [id number] [address] [place] [id number] Jul, [facility] [address] [id number] [address] [place] [address], [place] [address] Jul, [facility] [address] [id number] [address] [place] [address] Jul, [facility] [address] [id number] [address] [place] [address], [place] [address] Jul, [facility] [address] [id number] [address] [place] [address], [place] [address] 30 Jun, 2013 [facility] [address] [id number] [address] [place] [address], [place] [address] 30 Jun, 2013 [facility] [address] [id number] [address] [place] [address], [place] [address] 29 Jun, 2013 [facility] [address] [id number] [address] [place] [address] Jun, [facility] [address] [id number] [address] [place] [address], [place] [address] Jun, [facility] [address] [id number] [address] [place] [address], [place] [address] Jun, [facility] [address] [id number] [address] [place] [id number] 16 Jun, 2013 [facility] [address] [id number] [address] [place] [id number] 02 Jun, 2013 [facility] [address] [id number] [address] [place] [id number] 25 May, 2012 [facility] [address] [id number] [address] [place] [address], [place] [address] 18 Sep, 2012 [facility] [address] [id number] [address] [place] [address] 11 May, 2012 [facility] [address] [id number] [address] [place] [id number] 10 May, 2012 [facility] [address] [id number] [facility] [place] [address] May, [facility] [address] [id number] [address] [place] [address], [place] [address] May, [facility] [address] [id number] [address] [place] [address], [place] [address] Apr, [facility] [address] [id number] [address] [place] [address], [place] [address] Apr, [facility] [address] [id number] [address] [place] [address], [place] [address] Apr, [facility] [address] [id number] [address] [place] [address], [place] [address] Apr, [facility] [address] [id number] [address] [place] [address], [place] [address] Apr, [facility] [address] [id number] [address] [place] [address], [place] [address] Mar, [facility] [address] [id number] [address] [place] [address], [place] [address] Mar, [facility] [address] [id number] [address] [place] [address], [place] [address] Mar, [facility] [address] [id number] [address] [place] [address], [place] [address] Feb, [facility] [address] [id number] [address] [place] [address], [place] [address] Feb, [facility] [address] [id number] [address] [place] [address], [place] [address] Feb, [facility] [address] [id number] [address] [place] [address], [place] [address] January, [facility] [address] [id number] [address] [place] [address], [place] [address] January, [facility] [address] [id number] [address] [place], [place] [address] [address] Dec, [facility] [address] [facility] [id number] [address] [place] [address] Nov, [facility] [address] [facility] [id number] [address] [place] [id number] Nov, IMMUNIZATIONS No Known Immunizations SOCIAL HISTORY Never Assessed REASON FOR VISIT [place] [place] VITAL SIGNS MEDICATIONS No [...]
--- OUTSIDE RECORDS SUMMARY | 2019-12-04 12:03 | XMS REPORT ---
Author Author Shireen YOUNGER [facility] [employer] Address Unknown Phone Unavailable Care Team Providers Care Enrollment Services Vice President Name Role Phone PEMA YOUNGER CP Unavailable [...]
--- OUTSIDE RECORDS SUMMARY | 2019-12-04 12:03 | XMS REPORT ---
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 Name Role Phone JONY MAYO CP Unavailable Allergies, Adverse Reactions, Alerts Substance Reaction Event Type Compazine hallucinations Drug Allergy Venlafaxine HCl "tense" Drug Allergy Problems Problem Type Condition Code Onset Dates Condition Statu s Problem Post-traumatic stress disorder, chronic F43.12 Active Problem Personality disorder, unspecified F60.9 Active Problem Bipolar disorder, current episode depressed, moderate F31.32 Active Assessment Bipolar II disorder F31.81 Active Assessment Post-traumatic stress disorder, unspecified F43.10 Active Medications Medication Code System Code Instructions Start Date End Date Status Dosage Lamictal [facility] [address]-80 150 MG Orally Once a day December 06, 2014 2 Tablets Folic Acid [facility] [address]-58 March 20, 2013 b y Oral route once daily PredniSONE [facility] [place] [address]-58 5 mg Sep 28, 2014 3 Tablet by Oral route 1 time per day Enbrel [facility] [place] [address]-57 25 mg (1 mL) March 20, 2013 1 Injectable 2 times per week Methotrexate (Anti-Rheumatic) [facility] [place] [address]-78 March 20 3 by Oral route Klonopin [facility] [place] [address]-33 1 MG Orally Three times a d ay PRN anxiety May 28, 2015 1 tablet Procedures Procedure Coding System Code Date Office Visit, Est Pt., Level 4 CPT-4 96599 Sep 17, 2015 Vital Signs Date/Time: Sep 17, 2015 Cardiac Monitoring Heart Rate 88 bpm Weight 128 lbs Height 69 in BMI 18.90 Index Blood Pressure Diastolic 62 mmHg Blood Pressure Systolic 102 mmHg Results No Known Results Summary Purpose [employer] Submission
--- OUTSIDE RECORDS SUMMARY | 2019-12-04 12:03 | XMS REPORT ---
Author Author Shireen VOGT Organization [facility] Address [address] [place] [address] Care Team Providers Care Utility Aide Name Role Phone ALLIE VOGT Unavailable PROBLEMS Type Condition ICD9-CM Code HPV90-GR Code Onset Dates Condition S tatus SNOMED Code Problem Anorexia nervosa F50.00 Active 568 70498 Problem Bipolar disorder, current episode depressed, moderate F31.32 Active 889239173 Problem Post-traumatic stress disorder, chronic F43.12 Active 16737312 Problem Personality disorder, unspecified F60.9 Active [id number] ALLERGIES No Information ENCOUNTERS Encounter Location Date Diagnosis [facility] [address] [place] [id number] [address] [place] [address] Jul, Bipolar disorder, current ep isode depressed, moderate F31.32 and Anorexia nervosa F50.00 [facility] [address] [facility] [id number] [address] [place] [address] Jul, [facility] [address] [facility] [id number] [address] [place] [address] Jul, [facility] [address] [facility] [id number] [address] [place] [address] Jul, [facility] [address] [facility] [id number] [address] [place] [address] Jun, Bipolar disorder, current ep isode depressed, moderate F31.32 ; Post-traumatic stress disorder, chronic F43.12 and Eating disorder, unspecified F50.9 [facility] [address] [facility] [id number] [address] [place] [address] May, [facility] [address] [facility] [id number] [address] [place] [address] Apr, Bipolar disorder, current ep isode depressed, moderate F31.32 ; Post-traumatic stress disorder, chronic F43.12 and Eating disorder, unspecified F50.9 [place] [id number] [id number] [address] [place], [place] [address] Feb, Bipolar disorder, current ep isode depressed, moderate F31.32 ; Post-traumatic stress disorder, chronic F43.12 and Personality disorder, unspecified F60.9 [place] [address] [id number] [address] [place], [place] [address] Feb, Bipolar II disorder F31.81 [place] [address] [id number] [address] [place], [place] [address] Dec, Bipolar disorder, current ep isode depressed, moderate F31.32 ; Post-traumatic stress disorder, chronic F43.12 and Personality disorder, unspecified F60.9 [place] [address] [id number] [address] [place] [address] Dec, Bipolar disorder, current ep isode depressed, moderate F31.32 ; Post-traumatic stress disorder, chronic F43.12 and Personality disorder, unspecified F60.9 [place] [address] [id number] [address] [place] [address] Dec, [facility] [address] [id number] [address] [place] [address] Dec, [facility] [address] [id number] [address] [place] [address] Dec, Bipolar disorder, current ep isode depressed, moderate F31.32 ; Post-traumatic stress disorder, chronic F43.12 and Personality disorder, unspecified F60.9 [place] [address] [id number] [address] [place] [address] Nov, [facility] [address] [id number] [address] [place], [place] [id number] Nov, Bipolar disorder, current ep isode depressed, moderate F31.32 ; Post-traumatic stress disorder, chronic F43.12 and Personality disorder, unspecified F60.9 [place] [address] [facility] [id number] [address] [place] [address] Nov, Bipolar disorder, current ep isode depressed, moderate F31.32 ; Post-traumatic stress disorder, chronic F43.12 and Personality disorder, unspecified F60.9 [place] [address] [facility] [id number] [address] [place] [address] Oct, [place] [address] [facility] [id number] [address] [place] [address] Oct, Bipolar disorder, current ep isode depressed, moderate F31.32 ; Post-traumatic stress disorder, chronic F43.12 and Personality disorder, unspecified F60.9 [place] [address] [place] [id number] [address] [place] [address] Oct, Bipolar disorder, current ep isode depressed, moderate F31.32 ; Post-traumatic stress disorder, chronic F43.12 and Personality disorder, unspecified F60.9 [place] [address] [place] [id number] [address] [place] [address] Aug, Bipolar II disorder F31.81 a nd Post-traumatic stress disorder, unspecified F43.10 [place] [address] [place] [id number] [address] [place] [address] Aug, Bipolar disorder, current ep isode depressed, moderate F31.32 ; Post-traumatic stress disorder, chronic F43.12 and Personality disorder, unspecified F60.9 [place] [address] [place] [id number] [address] [place] [address] Jul, Bipolar disorder, unspecifie d 296.80 and Posttraumatic stress disorder 309.81 [place] [address] [place] [id number] [address] [place] [address] Jul, Post-traumatic stress disord er, chronic F43.12 ; Personality disorder, unspecified F60.9 and Bipolar disorder, current episode depressed, moderate F31.32 [place] [address] [place] [id number] [address] [place] [address] Jun, Bipolar disorder, unspecifie d 296.80 and Posttraumatic stress disorder 309.81 [facility] [address] [id number] [address] [place] [address] Jun, Bipolar disorder, unspecifie d 296.80 and Posttraumatic stress disorder 309.81 [facility] [address] [id number] [address] [place] [address] Jun, Posttraumatic stress disorde r 309.81 and Bipolar disorder, unspecified 296.80 [facility] [address] [id number] [address] [place] [address] May, Bipolar II disorder 296.89 a nd Post traumatic stress disorder 309.81 [facility] [address] [id number] [address] [place] [address] May, Bipolar II disorder 296.89 a nd Post traumatic stress disorder 309.81 [facility] [address] [id number] [address] [place] [address] May, [facility] [address] [id number] [address] [place] [address] May, [facility] [address] [facility] [id number] [address] [place] [address] May, [facility] [address] [facility] [id number] [address] [place] [address] May, [facility] [address] [facility] [id number] [address] [place] [address] May, Bipolar II disorder 296.89 a nd Post traumatic stress disorder 309.81 [facility] [address] [id number] [address] [place] [address] May, Bipolar I disorder, most rec ent episode (or current) depressed, moderate 296.52 ; Posttraumatic stress disorder 309.81 and Anxiety state, unspecified 300.00 [facility] [address] [id number] [address] [place] [address] Apr, Bipolar II disorder 296.89 a nd Post traumatic stress disorder 309.81 [facility] [address] [id number] [address] [place] [address] Apr, [facility] [address] [id number] [address] [place] [address] Apr, Bipolar II disorder 296.89 a nd Post traumatic stress disorder 309.81 [facility] [address] [id number] [address] [place] [address] Apr, Bipolar II disorder 296.89 a nd Post traumatic stress disorder 309.81 [facility] [address] [id number] [address] [place] [address] Mar, Bipolar II disorder 296.89 a nd Post traumatic stress disorder 309.81 [facility] [address] [id number] [address] [place] [address] Mar, [facility] [address] [id number] [address] [place] [address] Mar, Bipolar II disorder 296.89 a nd Post traumatic stress disorder 309.81 [facility] [address] [id number] [address] [place] [address] Mar, Bipolar II disorder 296.89 a nd Post traumatic stress disorder 309.81 [facility] [address] [id number] [address] [place] [address] Mar, Bipolar II disorder 296.89 a nd Post traumatic stress disorder 309.81 [facility] [address] [id number] [address] [place] [address] Mar, [facility] [address] [id number] [address] [place] [address] Mar, Bipolar II disorder 296.89 a nd Post traumatic stress disorder 309.81 [facility] [address] [id number] [address] [place] [address] Feb, Bipolar II disorder 296.89 a nd Post traumatic stress disorder 309.81 [facility] [address] [id number] [address] [place] [address] 16 Feb, 2015 [facility] [address] [id number] [address] [place] [address] Feb, Bipolar disorder, unspecifie d 296.80 and Anxiety state, unspecified 300.00 [facility] [address] [id number] [address] [place] [address] Feb, [facility] [address] [id number] [address] [place] [address] Feb, [facility] [address] [id number] [address] [place] [address] January, [facility] [address] [id number] [address] [place] [address] Dec, [facility] [address] [id number] [address] [place] [address] Dec, [facility] [address] [id number] [address] [place] [address] Nov, [facility] [address] [id number] [address] [place] [address] Nov, [facility] [address] [id number] [address] [place] [address] Nov, [facility] [address] [id number] [address] [place] [address] Nov, [facility] [address] [id number] [address] [place] [address] Nov, [facility] [address] [id number] [address] [place] [address] Nov, [facility] [address] [id number] [address] [place] [address] Nov, [facility] [address] [id number] [address] [place] [address] Nov, [facility] [address] [id number] [address] [place] [address] Nov, [facility] [address] [id number] [address] [place] [address], [place] [address] Oct, [facility] [address] [id number] [address] [place] [address], [place] [address] Oct, [facility] [address] [id number] [address] [place] [address], [place] [address] Oct, [facility] [address] [id number] [address] [place] [address], [place] [address] Oct, [facility] [address] [id number] [address] [place] [address], [place] [address] Oct, [facility] [address] [id number] [address] [place] [address], [place] [address] Oct, [facility] [address] [id number] [address] [place] [address], [place] [address] Oct, [facility] [address] [id number] [address] [place] [address], [place] [address] Oct, [facility] [address] [id number] [address] [place] [address], [place] [address] Sep, [facility] [address] [id number] [address] [place] [address], [place] [address] Sep, [facility] [address] [id number] [address] [place] [address], [place] [address] Sep, [facility] [address] [id number] [address] [place] [address], [place] [address] Sep, [facility] [address] [id number] [address] [place] [address], [place] [address] Sep, [facility] [address] [id number] [address] [place] [address], [place] [address] Sep, [facility] [address] [id number] [address] [place] [address] Sep, [facility] [address] [id number] [address] [place] [address], [place] [address] Sep, [facility] [address] [id number] [address] [place] [address], [place] [address] Sep, [facility] [address] [id number] [address] [place] [address], [place] [address] Sep, [facility] [address] [id number] [address] [place] [address], [place] [address] Aug, [facility] [address] [id number] [address] [place] [address], [place] [address] Aug, [facility] [address] [id number] [address] [place] [address], [place] [address] Aug, [facility] [address] [id number] [address] [place] [address], [place] [address] Aug, [facility] [address] [id number] [address] [place] [address], [place] [address] Aug, [facility] [address] [id number] [address] [place] [address], [place] [address] Aug, [facility] [address] [id number] [address] [place] [address], [place] [address] Aug, [facility] [address] [id number] [address] [place] [address], [place] [address] Aug, [facility] [address] [id number] [address] [place] [address], [place] [address] Jul, [facility] [address] [id number] [address] [place] [address], [place] [address] Jul, [facility] [address] [id number] [address] [place] [address], [place] [address] Jul, [facility] [address] [id number] [address] [place] [address], [place] [address] Jul, [facility] [address] [id number] [address] [place] [address] Jul, [facility] [address] [id number] [address] [place] [address], [place] [address] Jul, [facility] [address] [id number] [address] [place] [address], [place] [address] Jul, [facility] [address] [id number] [address] [place] [address], [place] [address] Jul, [facility] [address] [id number] [address] [place] [address], [place] [address] Jul, [facility] [address] [id number] [address] [place] [address], [place] [address] Jun, [facility] [address] [id number] [address] [place] [address], [place] [address] Jun, [facility] [address] [id number] [address] [place] [address], [place] [address] Jun, [facility] [address] [id number] [address] [place] [address], [place] [address] Jun, [facility] [address] [id number] [address] [place] [address], [place] [address] Jun, [facility] [address] [id number] [address] [place] [address], [place] [address] Jun, [facility] [address] [id number] [address] [place] [address], [place] [address] 25 May, 2014 [facility] [address] [id number] [address] [place] [address] 25 May, 2013 [facility] [address] [id number] [address] [place] [address], [place] [address] 16 May, 2014 [facility] [address] [id number] [address] [place] [address], [place] [address] 16 May, 2013 [facility] [address] [id number] [address] [place] [address], [place] [address] 05 Sep, 2013 [facility] [address] [id number] [facility] [place] [address] May, [facility] [address] [id number] [facility] [place] [address] Apr, [facility] [address] [id number] [facility] [place] [address] Apr, [facility] [address] [id number] [facility] [place] [address] Apr, [facility] [address] [id number] [facility] [place] [address] Apr, [facility] [address] [id number] [facility] [place] [address] Apr, [facility] [address] [id number] [address] [place] [address], [place] [address] Apr, [facility] [address] [id number] [address] [place] [address], [place] [address] Mar, [facility] [address] [id number] [address] [place] [address], [place] [address] Mar, [facility] [address] [id number] [address] [place] [address], [place] [address] Mar, [facility] [address] [id number] [address] [place] [address], [place] [address] Mar, [facility] [address] [id number] [address] [place] [address], [place] [address] Mar, [facility] [address] [id number] [address] [place] [address], [place] [address] Mar, [facility] [address] [id number] [address] [place] [address], [place] [address] Mar, [facility] [address] [id number] [facility] [place] [address] Mar, [facility] [address] [id number] [address] [place] [address], [place] [address] Mar, 2013 [facility] [address] [id number] [facility] [place] [address] Mar, 2013 [facility] [address] [id number] [facility] [place] [address] Mar, 2013 [facility] [address] [id number] [facility] [place] [address] Mar, 2013 [facility] [address] [id number] [address] [place] [address], [place] [address] Mar, 2013 [facility] [address] [id number] [address] [place] [address], [place] [address] Mar, 2013 [facility] [address] [id number] [address] [place] [address], [place] [address] Mar, [facility] [address] [id number] [address] [place] [address], [place] [address] Mar, [facility] [address] [id number] [address] [place] [address], [place] [address] Feb, [facility] [address] [id number] [address] [place] [address], [place] [address] 30 Feb, 2014 [facility] [address] [id number] [address] [place] [address], [place] [address] Feb, [facility] [address] [id number] [address] [place] [address], [place] [address] Feb, [facility] [address] [id number] [address] [place] [address], [place] [address] 24 Feb, 2014 [facility] [address] [id number] [address] [place] [address], [place] [address] 23 Feb, 2014 [facility] [address] [id number] [address] [place] [address], [place] [address] 20 Feb, 2014 [facility] [address] [id number] [address] [place] [address], [place] [address] 16 Feb, 2014 [facility] [address] [id number] [address] [place] [address], [place] [address] Feb, [facility] [address] [id number] [address] [place] [address], [place] [address] Feb, [facility] [address] [id number] [address] [place] [address], [place] [address] Feb, [facility] [address] [id number] [address] [place] [address], [place] [address] Feb, [facility] [address] [id number] [address] [place] [address], [place] [address] Feb, [facility] [address] [id number] [address] [place] [address], [place] [address] January, [facility] [address] [id number] [address] [place] [address], [place] [address] January, [facility] [address] [id number] [address] [place] [address], [place] [address] January, [facility] [address] [id number] [address] [place] [address], [place] [address] January, [facility] [address] [id number] [address] [place] [address], [place] [address] January, [facility] [address] [id number] [address] [place] [address], [place] [address] January, [facility] [address] [id number] [address] [place] [address], [place] [address] January, [facility] [address] [id number] [address] [place] [address], [place] [address] January, [facility] [address] [id number] [address] [place] [address], [place] [address] January, [facility] [address] [id number] [address] [place] [address], [place] [address] January, [facility] [address] [id number] [address] [place] [address], [place] [address] January, [facility] [address] [id number] [facility] [place] [address] January, [facility] [address] [id number] [facility] [place] [address] January, [facility] [address] [id number] [address] [place] [address], [place] [address] January, [facility] [address] [id number] [address] [place] [address], [place] [address] Dec, [facility] [address] [id number] [address] [place] [address], [place] [address] Dec, [facility] [address] [id number] [address] [place] [address], [place] [address] Dec, [facility] [address] [id number] [address] [place] [address], [place] [address] Dec, [facility] [address] [id number] [address] [place] [address], [place] [address] Dec, [facility] [address] [id number] [address] [place] [address], [place] [address] Dec, [facility] [address] [id number] [address] [place] [address], [place] [address] Dec, [facility] [address] [id number] [address] [place] [address], [place] [id number] Dec, [facility] [address] [id number] [address] [place] [address], [place] [address] Nov, [facility] [address] [id number] [address] [place] [address], [place] [address] Nov, [facility] [address] [id number] [address] [place] [address], [place] [address] Nov, [facility] [address] [id number] [address] [place] [address], [place] [address] Nov, [facility] [address] [id number] [address] [place] [address], [place] [address] Oct, [facility] [address] [id number] [address] [place] [address], [place] [address] Oct, [facility] [address] [id number] [address] [place] [address], [place] [address] Oct, [facility] [address] [id number] [address] [place] [address], [place] [address] Oct, [facility] [address] [id number] [address] [place] [address], [place] [address] Oct, [facility] [address] [id number] [address] [place] [address], [place] [address] Oct, [facility] [address] [id number] [address] [place] [address], [place] [address] Sep, [facility] [address] [id number] [address] [place] [address], [place] [address] Sep, [facility] [address] [id number] [address] [place] [address], [place] [address] Sep, [facility] [address] [id number] [address] [place] [address], [place] [address] Sep, [facility] [address] [id number] [address] [place] [address], [place] [address] Sep, [facility] [address] [id number] [address] [place] [address], [place] [address] Sep, [facility] [address] [id number] [address] [place] [address], [place] [address] Sep, [facility] [address] [id number] [address] [place] [address], [place] [address] Sep, [facility] [address] [id number] [address] [place] [address], [place] [address] Sep, [facility] [address] [id number] [address] [place] [address], [place] [address] Sep, [facility] [address] [id number] [address] [place] [address], [place] [address] Aug, [facility] [address] [id number] [address] [place] [address], [place] [address] Aug, [facility] [address] [id number] [address] [place] [address], [place] [address] Aug, [facility] [address] [id number] [address] [place] [address], [place] [address] Aug, [facility] [address] [id number] [address] [place] [address], [place] [address] Aug, [facility] [address] [id number] [address] [place] [address], [place] [address] Aug, [facility] [address] [id number] [address] [place] [address], [place] [address] Aug, [facility] [address] [id number] [address] [place] [address], [place] [address] Aug, [facility] [address] [id number] [address] [place] [address], [place] [address] Jul, [facility] [address] [id number] [address] [place] [address], [place] [address] Jul, [facility] [address] [id number] [address] [place] [address], [place] [address] Jul, [facility] [address] [id number] [address] [place] [address], [place] [address] Jul, [facility] [address] [id number] [address] [place] [address], [place] [address] Jul, [facility] [address] [id number] [address] [place] [address], [place] [address] Jul, [facility] [address] [id number] [address] [place] [address], [place] [address] Jul, [facility] [address] [id number] [address] [place] [address], [place] [address] Jul, [facility] [address] [id number] [address] [place] [address], [place] [address] Jul, [facility] [address] [id number] [address] [place] [address], [place] [address] Jul, [facility] [address] [id number] [address] [place] [address], [place] [address] Jul, [facility] [address] [id number] [address] [place] [address] Jul, [facility] [address] [id number] [address] [place] [address], [place] [address] Jun, [facility] [address] [id number] [address] [place] [address] Jun, [facility] [address] [id number] [address] [place] [address], [place] [address] Jun, [facility] [address] [id number] [address] [place] [address] Jun, [facility] [address] [id number] [address] [place] [address] Jun, [facility] [address] [id number] [address] [place] [address] Jun, [facility] [address] [id number] [address] [place] [address] Jun, [facility] [address] [id number] [address] [place] [address] Jun, [facility] [address] [id number] [address] [place] [address], [place] [address] 25 May, 2013 [facility] [address] [id number] [address] [place] [address] 18 May, 2013 [facility] [address] [id number] [address] [place] [address] 11 May, 2013 [facility] [address] [id number] [address] [place] [address], [place] [address] 10 May, 2013 [facility] [address] [id number] [address] [place] [address], [place] [address] 09 May, 2013 [facility] [address] [id number] [address] [place] [address], [place] [address] May, [facility] [address] [id number] [address] [place] [address], [place] [address] Apr, [facility] [address] [id number] [address] [place] [address], [place] [address] Apr, [facility] [address] [id number] [address] [place] [address], [place] [address] Apr, [facility] [address] [id number] [address] [place] [address], [place] [address] Apr, [facility] [address] [id number] [address] [place] [address], [place] [address] Apr, [facility] [address] [id number] [address] [place] [address], [place] [address] Mar, [facility] [address] [id number] [address] [place] [address], [place] [address] Mar, [facility] [address] [id number] [address] [place] [address], [place] [address] Mar, [facility] [address] [id number] [address] [place] [address], [place] [address] Feb, [facility] [address] [id number] [address] [place] [address], [place] [address] Feb, [facility] [address] [id number] [address] [place] [address], [place] [address] Feb, [facility] [address] [id number] [address] [place] [address], [place] [address] January, [facility] [address] [id number] [address] [place] [address], [place] [address] January, [facility] [address] [facility] [id number] [address] [place] [address] Dec, [facility] [address] [facility] [id number] [address] [place] [address] Nov, [facility] [address] [facility] [id number] [address] [place] [address] Nov, IMMUNIZATIONS No Known Immunizations SOCIAL HISTORY Never Assessed REASON FOR VISIT Treatment Planning - [place] PLAN OF CARE VITAL SIGNS MEDICATIONS No [...]
--- OUTSIDE RECORDS SUMMARY | 2019-12-04 12:03 | XMS REPORT ---
Author Author Shireen YOUNGER [facility] [place] eClinicalWorks Address Unknown Phone Unavailable Care Team Providers Care Water Tester Name Role Phone PEMA YOUNGER CP Unavailable [...] Coding System Code Date Psychotherapy, patient &/family, 30 minutes, established patient CPT-4 52390 Nov 01, 2015 Results No Known Results Summary Purpose eClinicalWorks Submission
--- OUTSIDE RECORDS SUMMARY | 2019-12-04 12:03 | XMS REPORT ---
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 Name Role Phone Migration, Doctor Unavailable Unavailable PROBLEMS Type Condition ICD9-CM Code [id number] Code Onset Dates Condition S tatus SNOMED Code Problem Bipolar disorder, current episode depressed, moderate F31.32 Active 871351308 Problem Anorexia nervosa F50.00 Active 568 10509 Problem Personality disorder, unspecified F60.9 Active 57015170 Problem Post-traumatic stress disorder, chronic F43.12 Active [id number] ALLERGIES No Information ENCOUNTERS Encounter Location Date Diagnosis [place] [address] [address] Jul, Bipolar disorder, current ep isode depressed, moderate F31.32 and Anorexia nervosa F50.00 [place] [address] [place] [id number] [address] [place] [address] Jul, [place] [address] [place] [id number] [address] [place] [address] Jul, [facility] [address] [place] [id number] [address] [place] [address] Jul, [facility] [address] [place] [id number] [address] [place] [address] Jun, Bipolar disorder, current ep isode depressed, moderate F31.32 ; Post-traumatic stress disorder, chronic F43.12 and Eating disorder, unspecified F50.9 [facility] [address] [facility] [id number] [address] [place] [address] May, [facility] [address] [place] [id number] [address] [place] [address] Apr, Bipolar disorder, current ep isode depressed, moderate F31.32 ; Post-traumatic stress disorder, chronic F43.12 and Eating disorder, unspecified F50.9 [facility] [address] [id number] [address] [place] [address] 14 Feb, 2016 Bipolar disorder, current ep isode depressed, moderate F31.32 ; Post-traumatic stress disorder, chronic F43.12 and Personality disorder, unspecified F60.9 [facility] [address] [id number] [address] [place] [address] 14 Feb, 2016 Bipolar II disorder F31.81 [facility] [address] [id number] [address] [place] [address] Dec, Bipolar disorder, current ep isode depressed, moderate F31.32 ; Post-traumatic stress disorder, chronic F43.12 and Personality disorder, unspecified F60.9 [place] [address] [id number] [address] [place] [address] Dec, Bipolar disorder, current ep isode depressed, moderate F31.32 ; Post-traumatic stress disorder, chronic F43.12 and Personality disorder, unspecified F60.9 [place] [address] [id number] [address] [place] [address] Dec, [facility] [address] [id number] [address] [place] [address] Dec, [place] [address] [facility] [id number] [address] [place] [address] Dec, Bipolar disorder, current ep isode depressed, moderate F31.32 ; Post-traumatic stress disorder, chronic F43.12 and Personality disorder, unspecified F60.9 [place] [address] [id number] [address] [place] [address] Nov, [facility] [address] [id number] [address] [place] [address] Nov, Bipolar disorder, current ep isode depressed, moderate F31.32 ; Post-traumatic stress disorder, chronic F43.12 and Personality disorder, unspecified F60.9 [facility] [address] [id number] [address] [place] [address] Nov, Bipolar disorder, current ep isode depressed, moderate F31.32 ; Post-traumatic stress disorder, chronic F43.12 and Personality disorder, unspecified F60.9 [place] [address] [id number] [address] [place] [address] Oct, [facility] [address] [id number] [address] [place], [place] [address] Oct, Bipolar disorder, current ep isode depressed, moderate F31.32 ; Post-traumatic stress disorder, chronic F43.12 and Personality disorder, unspecified F60.9 [place] [address] [facility] [id number] [address] [place] [address] Oct, Bipolar disorder, current ep isode depressed, moderate F31.32 ; Post-traumatic stress disorder, chronic F43.12 and Personality disorder, unspecified F60.9 [place] [address] [facility] [id number] [address] [place] [address] Aug, Bipolar II disorder F31.81 a nd Post-traumatic stress disorder, unspecified F43.10 [place] [address] [facility] [id number] [address] [place] [address] Aug, Bipolar disorder, current ep isode depressed, moderate F31.32 ; Post-traumatic stress disorder, chronic F43.12 and Personality disorder, unspecified F60.9 [place] [address] [facility] [id number] [address] [place] [address] Jul, Bipolar disorder, unspecifie d 296.80 and Posttraumatic stress disorder 309.81 [facility] [address] [id number] [address] [place] [address] Jul, Post-traumatic stress disord er, chronic F43.12 ; Personality disorder, unspecified F60.9 and Bipolar disorder, current episode depressed, moderate F31.32 [facility] [address] [id number] [address] [place] [address] Jun, Bipolar disorder, unspecifie d 296.80 and Posttraumatic stress disorder 309.81 [facility] [address] [id number] [address] [place] [address] Jun, Bipolar disorder, unspecifie d 296.80 and Posttraumatic stress disorder 309.81 [facility] [address] [id number] [address] [place] [address] Jun, Posttraumatic stress disorde r 309.81 and Bipolar disorder, unspecified 296.80 [facility] [address] [id number] [address] [place] [address] May, Bipolar II disorder 296.89 a nd Post traumatic stress disorder 309.81 [facility] [address] [id number] [address] [place] [address] May, Bipolar II disorder 296.89 a nd Post traumatic stress disorder 309.81 [facility] [address] [facility] [id number] [address] [place] [address] May, [facility] [address] [id number] [address] [place] [address] May, [facility] [address] [facility] [id number] [address] [place] [address] May, [facility] [address] [facility] [id number] [address] [place] [address] May, [facility] [address] [facility] [id number] [address] [place] [address] May, Bipolar II disorder 296.89 a nd Post traumatic stress disorder 309.81 [facility] [address] [id number] [address] [place] [address] May, Bipolar I disorder, most rec ent episode (or current) depressed, moderate 296.52 ; Posttraumatic stress disorder 309.81 and Anxiety state, unspecified 300.00 [facility] [address] [id number] [address] [place] [address] Apr, Bipolar II disorder 296.89 a nd Post traumatic stress disorder 309.81 [facility] [address] [facility] [id number] [address] [place] [address] Apr, [facility] [address] [id number] [address] [place] [address] Apr, Bipolar II disorder 296.89 a nd Post traumatic stress disorder 309.81 [facility] [address] [id number] [address] [place] [address] Apr, Bipolar II disorder 296.89 a nd Post traumatic stress disorder 309.81 [facility] [address] [id number] [address] [place] [address] Mar, Bipolar II disorder 296.89 a nd Post traumatic stress disorder 309.81 [facility] [address] [id number] [address] [place] [address] Mar, [facility] [address] [facility] [id number] [address] [place] [address] Mar, Bipolar II disorder 296.89 a nd Post traumatic stress disorder 309.81 [facility] [address] [id number] [address] [place] [address] Mar, Bipolar II disorder 296.89 a nd Post traumatic stress disorder 309.81 [facility] [address] [id number] [address] [place] [address] Mar, Bipolar II disorder 296.89 a nd Post traumatic stress disorder 309.81 [facility] [address] [id number] [address] [place] [address] Mar, [facility] [address] [id number] [address] [place] [address] Mar, Bipolar II disorder 296.89 a nd Post traumatic stress disorder 309.81 [facility] [address] [id number] [address] [place] [address] Feb, Bipolar II disorder 296.89 a nd Post traumatic stress disorder 309.81 [facility] [address] [id number] [address] [place] [address] Feb, [facility] [address] [id number] [address] [place] [address] Feb, Bipolar disorder, unspecifie d 296.80 and Anxiety state, unspecified 300.00 [facility] [address] [id number] [address] [place] [address] Feb, [facility] [address] [id number] [address] [place] [address] Feb, [facility] [address] [id number] [address] [place] [address] January, [facility] [address] [id number] [address] [place] [address] Dec, [facility] [address] [id number] [address] [place] [address] Dec, [facility] [address] [id number] [address] [place] [address] Nov, [facility] [address] [id number] [address] [place] [address] Nov, [facility] [address] [id number] [address] [place] [address] Nov, [facility] [address] [id number] [address] [place] [address] Nov, [facility] [address] [id number] [address] [place] [address] Nov, [facility] [address] [id number] [address] [place] [address] Nov, [facility] [address] [id number] [address] [place] [address] Nov, [facility] [address] [id number] [address] [place] [address] Nov, [facility] [address] [id number] [address] [place] [address] Nov, [facility] [address] [id number] [address] [place] [address], [place] [address] Oct, [facility] [address] [id number] [address] [place] [address], [place] [address] Oct, [facility] [address] [id number] [address] [place] [address], [place] [address] Oct, 2014 [facility] [address] [id number] [address] [place] [address], [place] [address] Oct, 2014 [facility] [address] [id number] [address] [place] [address], [place] [address] Oct, [facility] [address] [id number] [address] [place] [address], [place] [address] Oct, [facility] [address] [id number] [address] [place] [address], [place] [address] Oct, [facility] [address] [id number] [address] [place] [address], [place] [address] Oct, [facility] [address] [id number] [address] [place] [address], [place] [address] Sep, [facility] [address] [id number] [address] [place] [address], [place] [address] Sep, [facility] [address] [id number] [address] [place] [address], [place] [address] Sep, [facility] [address] [id number] [address] [place] [address], [place] [address] Sep, [facility] [address] [id number] [address] [place] [address], [place] [address] Sep, [facility] [address] [id number] [address] [place] [address], [place] [address] Sep, [facility] [address] [id number] [address] [place] [address], [place] [address] Sep, [facility] [address] [id number] [address] [place] [address], [place] [address] Sep, [facility] [address] [id number] [address] [place] [address], [place] [address] Sep, [facility] [address] [id number] [address] [place] [address], [place] [address] Sep, [facility] [address] [id number] [address] [place] [address], [place] [address] Aug, [facility] [address] [id number] [address] [place] [address], [place] [address] Aug, [facility] [address] [id number] [address] [place] [address], [place] [address] Aug, [facility] [address] [id number] [address] [place] [address], [place] [address] Aug, [facility] [address] [id number] [address] [place] [address], [place] [address] Aug, [facility] [address] [id number] [address] [place] [address], [place] [address] Aug, [facility] [address] [id number] [address] [place] [address], [place] [address] Aug, [facility] [address] [id number] [address] [place] [address], [place] [address] Aug, [facility] [address] [id number] [address] [place] [address], [place] [address] Jul, [facility] [address] [id number] [address] [place] [address], [place] [address] Jul, [facility] [address] [id number] [address] [place] [address], [place] [address] Jul, [facility] [address] [id number] [address] [place] [address], [place] [address] Jul, [facility] [address] [id number] [address] [place] [address], [place] [address] Jul, [facility] [address] [id number] [address] [place] [address], [place] [address] Jul, [facility] [address] [id number] [address] [place] [address], [place] [address] Jul, [facility] [address] [id number] [address] [place] [address], [place] [address] Jul, [facility] [address] [id number] [address] [place] [address], [place] [address] Jul, [facility] [address] [id number] [address] [place] [address], [place] [address] Jun, [facility] [address] [id number] [address] [place] [address], [place] [address] Jun, [facility] [address] [id number] [address] [place] [address], [place] [address] Jun, [facility] [address] [id number] [address] [place] [address], [place] [address] Jun, [facility] [address] [id number] [address] [place] [address], [place] [address] Jun, [facility] [address] [id number] [address] [place] [address], [place] [address] Jun, [facility] [address] [id number] [address] [place] [address], [place] [address] 25 May, 2013 [facility] [address] [id number] [address] [place] [address], [place] [address] 25 Sep, 2013 [facility] [address] [id number] [address] [place] [address], [place] [address] 16 Sep, 2013 [facility] [address] [id number] [address] [place] [address], [place] [address] 16 Sep, 2013 [facility] [address] [id number] [address] [place] [address], [place] [address] 05 Sep, 2013 [facility] [address] [id number] [address] [place] [address], [place] [address] May, [facility] [address] [id number] [address] [place] [address], [place] [address] Apr, [facility] [address] [id number] [address] [place] [address], [place] [address] Apr, [facility] [address] [id number] [address] [place] [address], [place] [address] Apr, [facility] [address] [id number] [address] [place] [address], [place] [address] Apr, [facility] [address] [id number] [address] [place] [address], [place] [address] Apr, [facility] [address] [id number] [address] [place] [address], [place] [address] Apr, [facility] [address] [id number] [address] [place] [address], [place] [address] Mar, [facility] [address] [id number] [address] [place] [address], [place] [address] Mar, [facility] [address] [id number] [address] [place] [address], [place] [address] Mar, [facility] [address] [id number] [address] [place] [address], [place] [address] Mar, [facility] [address] [id number] [address] [place] [address], [place] [address] Mar, [facility] [address] [id number] [address] [place] [address], [place] [address] Mar, [facility] [address] [id number] [address] [place] [address], [place] [address] Mar, [facility] [address] [id number] [address] [place] [address], [place] [address] Mar, [facility] [address] [id number] [address] [place] [address], [place] [address] Mar, [facility] [address] [id number] [address] [place] [address], [place] [address] Mar, 2013 [facility] [address] [id number] [address] [place] [address], [place] [address] Mar, 2013 [facility] [address] [id number] [address] [place] [address], [place] [address] Mar, 2013 [facility] [address] [id number] [address] [place] [address], [place] [address] Mar, 2013 [facility] [address] [id number] [address] [place] [address], [place] [address] Mar, 2013 [facility] [address] [id number] [address] [place] [address], [place] [address] Mar, 2013 [facility] [address] [id number] [address] [place] [address], [place] [address] Mar, 2013 [facility] [address] [id number] [address] [place] [address], [place] [address] Feb, [facility] [address] [id number] [address] [place] [address], [place] [address] 30 Feb, 2014 [facility] [address] [id number] [address] [place] [address], [place] [address] Feb, [facility] [address] [id number] [address] [place] [address], [place] [address] Feb, [facility] [address] [id number] [address] [place] [address], [place] [address] Feb, [facility] [address] [id number] [address] [place] [address], [place] [address] 23 Feb, 2014 [facility] [address] [id number] [address] [place] [address], [place] [address] 20 Feb, 2014 [facility] [address] [id number] [address] [place] [address], [place] [address] 16 Feb, 2014 [facility] [address] [id number] [address] [place] [address], [place] [address] Feb, [facility] [address] [id number] [facility] [place] [address] Feb, [facility] [address] [id number] [facility] [place] [address] Feb, [facility] [address] [id number] [facility] [place] [address] Feb, [facility] [address] [id number] [address] [place] [address], [place] [address] Feb, [facility] [address] [id number] [address] [place] [address] January, [facility] [address] [id number] [address] [place] [address], [place] [address] January, [facility] [address] [id number] [address] [place] [address], [place] [address] January, [facility] [address] [id number] [address] [place] [address], [place] [address] January, [facility] [address] [id number] [address] [place] [address], [place] [address] January, [facility] [address] [id number] [address] [place] [address], [place] [address] January, [facility] [address] [id number] [address] [place] [address], [place] [address] January, [facility] [address] [id number] [address] [place] [address], [place] [address] January, [facility] [address] [id number] [address] [place] [address], [place] [address] January, [facility] [address] [id number] [address] [place] [address], [place] [address] January, [facility] [address] [id number] [address] [place] [address], [place] [address] January, [facility] [address] [id number] [address] [place] [address], [place] [address] January, [facility] [address] [id number] [address] [place] [address] January, [facility] [address] [id number] [address] [place] [address], [place] [address] January, [facility] [address] [id number] [address] [place] [address], [place] [address] Dec, [facility] [address] [id number] [address] [place] [address], [place] [address] Dec, [facility] [address] [id number] [address] [place] [address], [place] [address] Dec, [facility] [address] [id number] [address] [place] [address], [place] [address] Dec, [facility] [address] [id number] [address] [place] [address], [place] [address] Dec, [facility] [address] [id number] [address] [place] [address], [place] [address] Dec, [facility] [address] [id number] [address] [place] [address], [place] [address] Dec, [facility] [address] [id number] [address] [place] [address], [place] [address] Dec, [facility] [address] [id number] [address] [place] [address], [place] [address] Nov, [facility] [address] [id number] [address] [place] [address], [place] [address] Nov, [facility] [address] [id number] [address] [place] [address], [place] [address] Nov, [facility] [address] [id number] [address] [place] [address], [place] [address] Nov, [facility] [facility] [address] [id number] [address] [place] [address], [place] [address] Oct, [facility] [address] [id number] [address] [place] [address], [place] [address] Oct, [facility] [address] [id number] [address] [place] [address], [place] [address] Oct, [facility] [address] [id number] [address] [place] [address], [place] [address] Oct, [facility] [address] [id number] [address] [place] [address], [place] [address] Oct, [facility] [address] [id number] [address] [place] [address], [place] [address] Oct, [facility] [address] [id number] [address] [place] [address], [place] [address] Sep, [facility] [address] [id number] [address] [place] [address], [place] [address] Sep, [facility] [address] [id number] [address] [place] [address], [place] [address] Sep, [facility] [address] [id number] [address] [place] [address], [place] [address] Sep, [facility] [address] [id number] [address] [place] [address], [place] [address] Sep, [facility] [address] [id number] [address] [place] [address], [place] [address] Sep, [facility] [address] [id number] [address] [place] [address], [place] [address] Sep, [facility] [address] [id number] [address] [place] [address], [place] [address] Sep, [facility] [address] [id number] [address] [place] [address], [place] [address] Sep, [facility] [address] [id number] [address] [place] [address], [place] [address] Sep, [facility] [address] [id number] [address] [place] [address], [place] [address] Aug, [facility] [address] [id number] [address] [place] [address], [place] [address] Aug, [facility] [address] [id number] [address] [place] [address], [place] [address] Aug, [facility] [address] [id number] [address] [place] [address], [place] [address] Aug, [facility] [address] [id number] [address] [place] [address], [place] [address] Aug, [facility] [address] [id number] [address] [place] [address], [place] [address] Aug, [facility] [address] [id number] [address] [place] [address], [place] [address] Aug, [facility] [address] [id number] [address] [place] [address], [place] [address] Aug, [facility] [address] [id number] [address] [place] [address], [place] [address] Jul, [facility] [address] [id number] [address] [place] [address], [place] [address] Jul, [facility] [address] [id number] [address] [place] [address] Jul, [facility] [address] [id number] [address] [place] [address] Jul, [facility] [address] [id number] [address] [place] [address] Jul, [facility] [address] [id number] [address] [place] [address] Jul, [facility] [address] [id number] [address] [place] [address] Jul, [facility] [address] [id number] [address] [place] [address] Jul, [facility] [address] [id number] [address] [place] [address] Jul, [facility] [address] [id number] [address] [place] [address], [place] [address] Jul, [facility] [address] [id number] [address] [place] [address] Jul, [facility] [address] [id number] [address] [place] [address], [place] [address] Jul, [facility] [address] [id number] [address] [place] [address], [place] [address] 30 Jun, 2013 [facility] [address] [id number] [address] [place] [address], [place] [address] 30 Jun, 2013 [facility] [address] [id number] [address] [place] [address], [place] [address] 29 Jun, 2013 [facility] [address] [id number] [address] [place] [address] Jun, [facility] [address] [id number] [address] [place] [address], [place] [address] Jun, [facility] [address] [id number] [address] [place] [address], [place] [address] Jun, [facility] [address] [id number] [address] [place] [address] 16 Jun, 2013 [facility] [address] [id number] [address] [place] [address] 02 Jun, 2013 [facility] [address] [id number] [address] [place] [address] 25 May, 2012 [facility] [address] [id number] [address] [place] [address], [place] [address] 18 Sep, 2012 [facility] [address] [id number] [address] [place] [address] 11 May, 2012 [facility] [address] [id number] [address] [place] [address] 10 May, 2012 [facility] [address] [id number] [facility] [place] [address] May, [facility] [address] [id number] [address] [place] [address], [place] [address] May, [facility] [address] [id number] [address] [place] [address], [place] [address] Apr, [facility] [address] [id number] [address] [place] [address], [place] [address] Apr, [facility] [address] [id number] [address] [place] [address], [place] [address] Apr, [facility] [address] [id number] [address] [place] [address], [place] [address] Apr, [facility] [address] [id number] [address] [place] [address], [place] [address] Apr, [facility] [address] [id number] [address] [place] [address], [place] [address] Mar, [facility] [address] [id number] [address] [place] [address], [place] [address] Mar, [facility] [address] [id number] [address] [place] [address], [place] [address] Mar, [facility] [address] [id number] [address] [place] [address], [place] [address] Feb, [facility] [address] [id number] [address] [place] [address], [place] [address] Feb, [facility] [address] [id number] [address] [place] [address], [place] [address] Feb, [facility] [address] [id number] [address] [place] [address], [place] [address] January, [facility] [address] [id number] [address] [place] [address], [place] [address] January, [facility] [address] [id number] [address] [place] [address] [address] Dec, [facility] [address] [facility] [id number] [address] [place] [address] Nov, [facility] [address] [facility] [id number] [address] [place] [address] Nov, IMMUNIZATIONS No Known Immunizations SOCIAL HISTORY Never Assessed REASON FOR VISIT EMR-[facility] PLAN OF CARE VITAL SIGNS MEDICATIONS No [...]
--- OUTSIDE RECORDS SUMMARY | 2019-12-04 12:03 | XMS REPORT ---
Author Author Shireen YOUNGER [facility] eClinicalWorks Address Unknown Phone Unavailable Care Team Providers Care Clerical Assigner Name Role Phone PEMA YOUNGER CP Unavailable Allergies No Known Allergies Problems Problem Type Condition Code Onset Dates Condition Statu s Problem Post-traumatic stress disorder, chronic F43.12 Active Problem Personality disorder, unspecified F60.9 Active Problem Bipolar disorder, current episode depressed, moderate F31.32 Active Assessment Bipolar disorder, current episode depressed, moderate F31.32 Active Assessment Post-traumatic stress disorder, chronic F43.12 Active Assessment Personality disorder, unspecified F60.9 Active Medications No Known Medications Procedures Procedure Coding System Code Date Psychotherapy, patient &/family, 45 minutes, established patient CPT-4 27210 Aug 08, 2015 Results No Known Results Summary Purpose eClinicalWorks Submission
--- OUTSIDE RECORDS SUMMARY | 2019-12-04 12:03 | XMS REPORT ---
Author Author Shireen AVERY [facility] eClinicalWorks Address Unknown Phone Unavailable Care Team Providers Care Geriatric Nursing Assistant Name Role Phone SONAL AVERY Unavailable Allergies [...]
--- OUTSIDE RECORDS SUMMARY | 2019-12-04 12:03 | XMS REPORT ---
Author Author Shireen YOUNGER [facility] eClinicalWorks Address Unknown Phone Unavailable Care Team Providers Care Top Printing Press Operator Name Role Phone PEMA YOUNGER CP Unavailable Allergies No Known Allergies Problems Problem Type Condition Code Onset Dates Condition Statu s Problem Post-traumatic stress disorder, chronic F43.12 Active Problem Personality disorder, unspecified F60.9 Active Problem Bipolar disorder, current episode depressed, moderate F31.32 Active Assessment Bipolar disorder, unspecified 296.80 Active Assessment Posttraumatic stress disorder 309.81 Active Medications No Known Medications Procedures Procedure Coding System Code Date Psychotherapy, patient &/family, 45 minutes, established patient CPT-4 15512 Jul 24, 2015 Results No Known Results Summary Purpose eClinicalWorks Submission
--- OUTSIDE RECORDS SUMMARY | 2019-12-04 12:03 | XMS REPORT ---
Author Author Shireen YOUNGER [facility] eClinicalWorks Address Unknown Phone Unavailable Care Team Providers Care Mental Health Program Specialist Name Role Phone PEMA YOUNGER CP Unavailable [...] patient &/family, 45 minutes, established patient CPT-4 45528 May 23, 2015 Results No Known Results Summary Purpose eClinicalWorks Submission
--- OUTSIDE RECORDS SUMMARY | 2019-12-04 12:03 | XMS REPORT ---
Author Author Shireen YOUNGER [facility] eClinicalWorks Address Unknown Phone Unavailable Care Team Providers Care Plant Safety Engineer Name Role Phone PEMA YOUNGER CP Unavailable [...] patient &/family, 45 minutes, established patient CPT-4 20506 January 09, 2016 Results No Known Results Summary Purpose eClinicalWorks Submission
--- OUTSIDE RECORDS SUMMARY | 2019-12-04 12:04 | XMS REPORT ---
Author Author Shireen YOUNGER [facility] eClinicalWorks Address Unknown Phone Unavailable Care Team Providers Care Cutter And Paster Press Clippings Name Role Phone PEMA YOUNGER CP Unavailable Allergies No Known Allergies Problems Problem Type Condition Code Onset Dates Condition Statu s Assessment Posttraumatic stress disorder 309.81 Active Problem Unspecified personality disorder 301.9 Active Assessment Bipolar disorder, unspecified 296.80 Active Problem Other and unspecified bipolar disorders [...] patient &/family, 45 minutes, established patient CPT-4 98766 Jul 17, 2015 Results No Known Results Summary Purpose eClinicalWorks Submission
--- OUTSIDE RECORDS SUMMARY | 2019-12-04 12:04 | XMS REPORT ---
Author Author Shireen GALLAGHER Organization eClinicalWorks Address Unknown Phone Unavailable Care Team Providers Care Acid Tank Cleaner Name Role Phone ALEXANDRA GALLAGHER CP Unavailable Allergies No Known Allergies Problems Problem Type Condition Code Onset Dates Condition Statu s Problem Post-traumatic stress disorder, chronic F43.12 Active Problem Personality disorder, unspecified F60.9 Active Problem Bipolar disorder, current episode depressed, moderate F31.32 Active Assessment Eating disorder, unspecified F50.9 Active Assessment Bipolar disorder, current episode depressed, moderate F31.32 Active Assessment Post-traumatic stress disorder, chronic F43.12 Active Medications Medication Code System Code Instructions Start Date End Date Status Dosage Lamictal [facility] [address]-36 150 MG Orally Once a day December 06, 2014 2 Tablets Methotrexate (Anti-Rheumatic) [facility] [address]-78 March 20 3 by Oral route Enbrel [facility] [address]-25 25 mg (1 mL) March 20, 2013 1 Injectable 2 times per week Escitalopram Oxalate [facility] [address]-93 10 mg Orally Once a day J 2015 1 tablet Folic Acid [facility] [address]-82 March 20, 2013 b y Oral route once daily PredniSONE [facility] [address]-57 5 mg Sep 28, 2014 3 Tablet by Oral route 1 time per day Procedures Procedure Coding System Code Date Office Visit, Est Pt., Level 4 CPT-4 30807 May 14, 2016 Vital Signs Date/Time: May 14, 2016 Cardiac Monitoring Heart Rate 98 bpm Weight 123 lbs Height 69 in BMI 18.16 Index Blood Pressure Diastolic 68 mmHg Blood Pressure Systolic 112 mmHg Results No Known Results Summary Purpose eClinicalWorks Submission
--- OUTSIDE RECORDS SUMMARY | 2019-12-04 12:04 | XMS REPORT ---
Author Author Shireen TERESA [facility] eClinicalWorks Address Unknown Phone Unavailable Care Team Providers Care Regional Flatbed Truck Driver Name Role Phone SHELIA TERESA CP Unavailable Allergies No Known Allergies Problems [...] Instructions Start Date End Date Status Dosage Latuda [facility] [address]-56 40 mg Orally once daily with food May 28, 2015 1 tablet Klonopin [facility] [address]-73 1 MG Orally Three times a d ay PRN anxiety May 28, 2015 1 tablet Lamictal [facility] [address]-57 150 MG Orally Once a day December 06, 2014 2 Tablets Results No Known Results Summary Purpose eClinicalWorks Submission
--- OUTSIDE RECORDS SUMMARY | 2019-12-04 12:04 | XMS REPORT ---
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 Name Role Phone PEMA YOUNGER Unavailable PROBLEMS Type Condition ICD9-CM Code [id number] Code Onset Dates Condition S tatus SNOMED Code Problem Anorexia nervosa F50.00 Active 568 93328 Problem Bipolar disorder, current episode depressed, moderate F31.32 Active 444470374 Problem Post-traumatic stress disorder, chronic F43.12 Active 04857129 Problem Personality disorder, unspecified F60.9 Active [id number] ALLERGIES No Information ENCOUNTERS Encounter Location Date Diagnosis [place] [address] [place] [id number] [address] [place] [id number] Jul, Bipolar disorder, current ep isode depressed, moderate F31.32 and Anorexia nervosa F50.00 [place] [address] [place] [id number] [address] [place] [id number] Jul, [place] [address] [place] [id number] [address] [place] [address] Jul, [place] [address] [place] [id number] [address] [place] [address] Jul, [place] [address] [place] [id number] [address] [place] [address] Jun, Bipolar disorder, current ep isode depressed, moderate F31.32 ; Post-traumatic stress disorder, chronic F43.12 and Eating disorder, unspecified F50.9 [facility] [address] [facility] [id number] [address] [place] [address] May, [place] [address] [place] [id number] [address] [place] [address] Apr, Bipolar disorder, current ep isode depressed, moderate F31.32 ; Post-traumatic stress disorder, chronic F43.12 and Eating disorder, unspecified F50.9 [place] [address] [id number] [address] [place], [place] [id number] 14 Feb, 2016 Bipolar disorder, current ep isode depressed, moderate F31.32 ; Post-traumatic stress disorder, chronic F43.12 and Personality disorder, unspecified F60.9 [place] [address] [id number] [address] [place] [address] Feb, Bipolar II disorder F31.81 [place] [address] [id number] [address] [place], [place] [address] Dec, Bipolar disorder, current ep isode depressed, moderate F31.32 ; Post-traumatic stress disorder, chronic F43.12 and Personality disorder, unspecified F60.9 [place] [address] [id number] [address] [place], [place] [address] Dec, Bipolar disorder, current ep isode depressed, moderate F31.32 ; Post-traumatic stress disorder, chronic F43.12 and Personality disorder, unspecified F60.9 [place] [address] [id number] [address] [place] [address] Dec, [place] [address] [id number] [address] [place] [id number] Dec, [place] [address] [id number] [address] [place] [address] Dec, Bipolar disorder, current ep isode depressed, moderate F31.32 ; Post-traumatic stress disorder, chronic F43.12 and Personality disorder, unspecified F60.9 [place] [address] [id number] [address] [place] [address] Nov, [place] [address] [id number] [address] [place] [address] Nov, Bipolar disorder, current ep isode depressed, moderate F31.32 ; Post-traumatic stress disorder, chronic F43.12 and Personality disorder, unspecified F60.9 [place] [address] [facility] [id number] [address] [place] [address] Nov, Bipolar disorder, current ep isode depressed, moderate F31.32 ; Post-traumatic stress disorder, chronic F43.12 and Personality disorder, unspecified F60.9 [place] [address] [facility] [id number] [address] [place] [address] Oct, [place] [address] [facility] [id number] [address] [place] [address] Oct, Bipolar disorder, current ep isode depressed, moderate F31.32 ; Post-traumatic stress disorder, chronic F43.12 and Personality disorder, unspecified F60.9 [place] [address] [facility] [id number] [address] [place] [address] Oct, Bipolar disorder, current ep isode depressed, moderate F31.32 ; Post-traumatic stress disorder, chronic F43.12 and Personality disorder, unspecified F60.9 [place] [address] [facility] [id number] [address] [place] [address] Aug, Bipolar II disorder F31.81 a nd Post-traumatic stress disorder, unspecified F43.10 [place] [address] [facility] [id number] [address] [place] [address] Aug, Bipolar disorder, current ep isode depressed, moderate F31.32 ; Post-traumatic stress disorder, chronic F43.12 and Personality disorder, unspecified F60.9 [place] [address] [facility] [id number] [address] [place] [address] Jul, Bipolar disorder, unspecifie d 296.80 and Posttraumatic stress disorder 309.81 [place] [address] [facility] [id number] [address] [place] [address] Jul, Post-traumatic stress disord er, chronic F43.12 ; Personality disorder, unspecified F60.9 and Bipolar disorder, current episode depressed, moderate F31.32 [place] [address] [facility] [id number] [address] [place] [address] Jun, Bipolar disorder, unspecifie d 296.80 and Posttraumatic stress disorder 309.81 [facility] [address] [facility] [id number] [address] [place] [address] Jun, Bipolar disorder, unspecifie d 296.80 and Posttraumatic stress disorder 309.81 [facility] [address] [facility] [id number] [address] [place] [address] Jun, Posttraumatic stress disorde r 309.81 and Bipolar disorder, unspecified 296.80 [facility] [address] [facility] [id number] [address] [place] [address] May, Bipolar II disorder 296.89 a nd Post traumatic stress disorder 309.81 [facility] [address] [facility] [id number] [address] [place] [address] May, Bipolar II disorder 296.89 a nd Post traumatic stress disorder 309.81 [facility] [address] [place] [id number] [address] [place] [address] May, [facility] [address] [facility] [id number] [address] [place] [address] May, [facility] [address] [place] [id number] [address] [place] [address] May, [facility] [address] [place] [id number] [address] [place] [address] May, [facility] [address] [place] [id number] [address] [place] [address] May, Bipolar II disorder 296.89 a nd Post traumatic stress disorder 309.81 [facility] [address] [facility] [id number] [address] [place] [address] May, Bipolar I disorder, most rec ent episode (or current) depressed, moderate 296.52 ; Posttraumatic stress disorder 309.81 and Anxiety state, unspecified 300.00 [facility] [address] [place] [id number] [address] [place] [address] Apr, Bipolar II disorder 296.89 a nd Post traumatic stress disorder 309.81 [facility] [address] [id number] [address] [place] [address] Apr, [facility] [address] [id number] [address] [place] [address] Apr, Bipolar II disorder 296.89 a nd Post traumatic stress disorder 309.81 [facility] [address] [id number] [address] [place] [address] Apr, Bipolar II disorder 296.89 a nd Post traumatic stress disorder 309.81 [facility] [address] [id number] [address] [place] [address] Mar, Bipolar II disorder 296.89 a nd Post traumatic stress disorder 309.81 [facility] [address] [id number] [address] [place] [address] Mar, [facility] [address] [id number] [address] [place] [address] Mar, Bipolar II disorder 296.89 a nd Post traumatic stress disorder 309.81 [facility] [address] [id number] [address] [place] [address] Mar, Bipolar II disorder 296.89 a nd Post traumatic stress disorder 309.81 [facility] [address] [id number] [address] [place] [address] Mar, Bipolar II disorder 296.89 a nd Post traumatic stress disorder 309.81 [facility] [address] [id number] [address] [place] [address] Mar, [facility] [address] [id number] [address] [place] [address] Mar, Bipolar II disorder 296.89 a nd Post traumatic stress disorder 309.81 [facility] [address] [id number] [address] [place] [address] Feb, Bipolar II disorder 296.89 a nd Post traumatic stress disorder 309.81 [facility] [address] [id number] [address] [place] [id number] 16 Feb, 2015 [facility] [address] [id number] [address] [place] [id number] Feb, Bipolar disorder, unspecifie d 296.80 and Anxiety state, unspecified 300.00 [facility] [address] [id number] [address] [place] [address] Feb, [facility] [address] [id number] [address] [place] [address] Feb, [facility] [address] [id number] [address] [place] [address] January, [facility] [address] [id number] [address] [place] [address] Dec, [facility] [address] [id number] [address] [place] [address] Dec, [facility] [address] [id number] [address] [place] [address] Nov, [facility] [address] [id number] [address] [place] [address] Nov, [facility] [address] [id number] [address] [place] [address] Nov, [facility] [address] [id number] [address] [place] [id number] Nov, [facility] [address] [id number] [address] [place] [id number] Nov, [facility] [address] [id number] [address] [place] [id number] Nov, [facility] [address] [id number] [address] [place] [address] Nov, [facility] [address] [id number] [address] [place] [address] Nov, [facility] [address] [id number] [address] [place] [address], [place] [address] Nov, [facility] [address] [id number] [address] [place] [address], [place] [address] Oct, [facility] [address] [id number] [address] [place] [address], [place] [address] Oct, 2014 [facility] [address] [id number] [address] [place] [address], [place] [address] Oct, 2014 [facility] [address] [id number] [address] [place] [address], [place] [address] Oct, [facility] [address] [id number] [address] [place] [address], [place] [address] Oct, [facility] [address] [id number] [address] [place] [address], [place] [address] Oct, [facility] [address] [id number] [address] [place] [address], [place] [address] Oct, [facility] [address] [id number] [address] [place] [address], [place] [address] Oct, [facility] [address] [id number] [address] [place] [address], [place] [address] Sep, [facility] [address] [id number] [address] [place] [address], [place] [address] Sep, [facility] [address] [id number] [address] [place] [address], [place] [address] Sep, [facility] [address] [id number] [address] [place] [id number] Sep, [facility] [address] [id number] [address] [place] [address], [place] [address] Sep, [facility] [address] [id number] [address] [place] [id number] Sep, [facility] [address] [id number] [address] [place] [id number] Sep, [facility] [address] [id number] [address] [place] [address], [place] [address] Sep, [facility] [address] [id number] [address] [place] [address], [place] [address] Sep, [facility] [address] [id number] [address] [place] [address], [place] [address] Sep, [facility] [address] [id number] [address] [place] [address], [place] [address] Aug, [facility] [address] [id number] [address] [place] [address], [place] [address] Aug, [facility] [address] [id number] [address] [place] [address], [place] [address] Aug, [facility] [address] [id number] [address] [place] [address], [place] [address] Aug, [facility] [address] [id number] [address] [place] [address], [place] [address] Aug, [facility] [address] [id number] [address] [place] [address], [place] [address] Aug, [facility] [address] [id number] [address] [place] [address], [place] [address] Aug, [facility] [address] [id number] [address] [place] [address], [place] [address] Aug, [facility] [address] [id number] [address] [place] [address], [place] [address] Jul, [facility] [address] [id number] [address] [place] [address], [place] [address] Jul, [facility] [address] [id number] [address] [place] [address], [place] [address] Jul, [facility] [address] [id number] [address] [place] [address], [place] [address] Jul, [facility] [address] [id number] [address] [place] [address], [place] [address] Jul, [facility] [address] [id number] [address] [place] [address], [place] [address] Jul, [facility] [address] [id number] [address] [place] [address], [place] [address] Jul, [facility] [address] [id number] [address] [place] [address], [place] [address] Jul, [facility] [address] [id number] [address] [place] [address], [place] [address] Jul, [facility] [address] [id number] [address] [place] [address], [place] [address] Jun, [facility] [address] [id number] [address] [place] [address], [place] [address] Jun, [facility] [address] [id number] [address] [place] [address], [place] [address] Jun, [facility] [address] [id number] [address] [place] [address], [place] [address] Jun, [facility] [address] [id number] [address] [place] [address], [place] [address] Jun, [facility] [address] [id number] [address] [place] [address], [place] [address] Jun, [facility] [address] [id number] [address] [place] [address], [place] [address] 25 May, 2013 [facility] [address] [id number] [address] [place] [address], [place] [address] 25 Sep, 2013 [facility] [address] [id number] [address] [place] [address], [place] [address] 16 Sep, 2013 [facility] [address] [id number] [address] [place] [address], [place] [address] 16 Sep, 2013 [facility] [address] [id number] [address] [place] [address], [place] [address] May, [facility] [address] [id number] [facility] [place] [address] May, [facility] [address] [id number] [facility] [place] [address] Apr, [facility] [address] [id number] [facility] [place] [address] Apr, [facility] [address] [id number] [address] [place] [address], [place] [address] Apr, [facility] [address] [id number] [address] [place] [address], [place] [address] Apr, [facility] [address] [id number] [address] [place] [address], [place] [address] Apr, [facility] [address] [id number] [address] [place] [address], [place] [address] Apr, [facility] [address] [id number] [address] [place] [address], [place] [address] Mar, [facility] [address] [id number] [address] [place] [address], [place] [address] Mar, [facility] [address] [id number] [address] [place] [address], [place] [address] Mar, [facility] [address] [id number] [address] [place] [address], [place] [address] Mar, [facility] [address] [id number] [address] [place] [address], [place] [address] Mar, [facility] [address] [id number] [address] [place] [address], [place] [address] Mar, [facility] [address] [id number] [address] [place] [address], [place] [address] Mar, [facility] [address] [id number] [address] [place] [address], [place] [address] Mar, [facility] [address] [id number] [address] [place] [address], [place] [address] Mar, 2013 [facility] [address] [id number] [facility] [place] [address] Mar, 2013 [facility] [address] [id number] [address] [place] [address], [place] [address] Mar, 2013 [facility] [address] [id number] [address] [place] [address], [place] [address] Mar, 2013 [facility] [address] [id number] [address] [place] [address], [place] [address] Mar, 2013 [facility] [address] [id number] [address] [place] [address], [place] [address] Mar, 2013 [facility] [address] [id number] [address] [place] [address], [place] [address] Mar, [facility] [address] [id number] [address] [place] [address], [place] [address] Mar, [facility] [address] [id number] [address] [place] [address], [place] [address] Feb, [facility] [address] [id number] [address] [place] [address], [place] [address] Feb, [facility] [address] [id number] [address] [place] [address], [place] [address] Feb, [facility] [address] [id number] [address] [place] [address], [place] [address] Feb, [facility] [address] [id number] [address] [place] [address], [place] [address] 24 Feb, 2014 [facility] [address] [id number] [address] [place] [address], [place] [address] Feb, [facility] [address] [id number] [address] [place] [address], [place] [address] Feb, [facility] [address] [id number] [address] [place] [address], [place] [address] 16 Feb, 2014 [facility] [address] [id number] [facility] [place] [address] Feb, [facility] [address] [id number] [facility] [place] [address] Feb, [facility] [address] [id number] [facility] [place] [address] Feb, [facility] [address] [id number] [address] [place] [address], [place] [address] Feb, [facility] [address] [id number] [address] [place] [address], [place] [address] Feb, [facility] [address] [id number] [address] [place] [address], [place] [id number] January, [facility] [address] [id number] [address] [place] [address], [place] [id number] January, [facility] [address] [id number] [address] [place] [address], [place] [id number] January, [facility] [address] [id number] [address] [place] [address], [place] [id number] January, [facility] [address] [id number] [address] [place] [address], [place] [id number] January, [facility] [address] [id number] [address] [place] [address], [place] [address] January, [facility] [address] [id number] [address] [place] [address], [place] [id number] January, [facility] [address] [id number] [address] [place] [address], [place] [id number] January, [facility] [address] [id number] [address] [place] [address], [place] [id number] January, [facility] [address] [id number] [address] [place] [address], [place] [id number] January, [facility] [address] [id number] [address] [place] [address], [place] [id number] January, [facility] [address] [id number] [address] [place] [address], [place] [id number] January, [facility] [address] [id number] [address] [place] [address], [place] [id number] January, [facility] [address] [id number] [address] [place] [address], [place] [id number] January, [facility] [address] [id number] [address] [place] [address], [place] [id number] Dec, [facility] [address] [id number] [address] [place] [address], [place] [id number] Dec, [facility] [address] [id number] [address] [place] [address], [place] [id number] Dec, [facility] [address] [id number] [address] [place] [address], [place] [id number] Dec, [facility] [address] [id number] [address] [place] [address], [place] [id number] Dec, [facility] [address] [id number] [address] [place] [address], [place] [id number] Dec, [facility] [address] [id number] [address] [place] [address], [place] [id number] Dec, [facility] [address] [id number] [address] [place] [address], [place] [id number] Dec, [facility] [address] [id number] [address] [place] [address], [place] [id number] Nov, [facility] [address] [id number] [address] [place] [address], [place] [id number] Nov, [facility] [address] [id number] [address] [place] [address], [place] [id number] Nov, [facility] [address] [id number] [address] [place] [address], [place] [id number] Nov, [facility] [address] [id number] [address] [place] [address], [place] [address] Oct, [facility] [address] [id number] [address] [place] [address], [place] [id number] Oct, [facility] [facility] [address] [id number] [address] [place] [address], [place] [id number] Oct, [facility] [address] [id number] [address] [place] [address], [place] [id number] Oct, [facility] [address] [id number] [address] [place] [address], [place] [id number] Oct, [facility] [address] [id number] [address] [place] [address], [place] [id number] Oct, [facility] [address] [id number] [address] [place] [address], [place] [id number] Sep, [facility] [address] [id number] [address] [place] [address], [place] [id number] Sep, [facility] [address] [id number] [address] [place] [address], [place] [id number] Sep, [facility] [address] [id number] [address] [place] [address], [place] [id number] Sep, [facility] [address] [id number] [address] [place] [address], [place] [id number] Sep, [facility] [address] [id number] [address] [place] [address], [place] [id number] Sep, [facility] [address] [id number] [address] [place] [address], [place] [id number] Sep, [facility] [address] [id number] [address] [place] [address], [place] [id number] Sep, [facility] [address] [id number] [address] [place] [address], [place] [address] Sep, [facility] [address] [id number] [address] [place] [address], [place] [address] Sep, [facility] [address] [id number] [address] [place] [address], [place] [address] Aug, [facility] [address] [id number] [address] [place] [address], [place] [address] Aug, [facility] [address] [id number] [address] [place] [address], [place] [address] Aug, [facility] [address] [id number] [address] [place] [address], [place] [id number] Aug, [facility] [address] [id number] [address] [place] [address], [place] [address] Aug, [facility] [address] [id number] [address] [place] [address], [place] [address] Aug, [facility] [address] [id number] [address] [place] [address], [place] [address] Aug, [facility] [address] [id number] [address] [place] [address], [place] [address] Aug, [facility] [address] [id number] [address] [place] [address], [place] [address] Jul, [facility] [address] [id number] [address] [place] [address], [place] [address] Jul, [facility] [address] [id number] [address] [place] [id number] Jul, [facility] [address] [id number] [address] [place] [id number] Jul, [facility] [address] [id number] [address] [place] [address], [place] [address] Jul, [facility] [address] [id number] [address] [place] [address], [place] [address] Jul, [facility] [address] [id number] [address] [place] [id number] Jul, [facility] [address] [id number] [address] [place] [id number] Jul, [facility] [address] [id number] [address] [place] [address], [place] [id number] Jul, [facility] [address] [id number] [address] [place] [id number] Jul, [facility] [address] [id number] [address] [place] [address], [place] [address] Jul, [facility] [address] [id number] [address] [place] [id number] Jul, [facility] [address] [id number] [address] [place] [address], [place] [address] Jun, [facility] [address] [id number] [address] [place] [id number] Jun, [facility] [address] [id number] [address] [place] [id number] Jun, [facility] [address] [id number] [address] [place] [address], [place] [address] Jun, [facility] [address] [id number] [address] [place] [id number] Jun, [facility] [address] [id number] [address] [place] [id number] Jun, [facility] [address] [id number] [address] [place] [id number] Jun, [facility] [address] [id number] [address] [place] [id number] Jun, [facility] [address] [id number] [address] [place] [id number] 25 May, 2013 [facility] [address] [id number] [address] [place] [id number] 18 May, 2013 [facility] [address] [id number] [address] [place] [address], [place] [id number] 11 May, 2013 [facility] [address] [id number] [address] [place] [address], [place] [address] 10 May, 2013 [facility] [address] [id number] [address] [place] [address], [place] [address] May, [facility] [address] [id number] [address] [place] [address], [place] [address] May, [facility] [address] [id number] [address] [place] [address], [place] [address] Apr, [facility] [address] [id number] [address] [place] [address], [place] [address] Apr, [facility] [address] [id number] [address] [place] [address], [place] [address] Apr, [facility] [address] [id number] [address] [place] [address], [place] [id number] Apr, [facility] [address] [id number] [address] [place] [address], [place] [address] Apr, [facility] [address] [id number] [address] [place] [address], [place] [address] Mar, [facility] [address] [id number] [address] [place] [address], [place] [address] Mar, [facility] [address] [id number] [address] [place] [address], [place] [address] Mar, [facility] [address] [id number] [address] [place] [address], [place] [id number] Feb, [facility] [address] [id number] [address] [place] [address], [place] [address] Feb, [facility] [address] [id number] [address] [place] [address], [place] [id number] Feb, [facility] [address] [id number] [address] [place] [address], [place] [address] January, [facility] [address] [id number] [address] [place] [address], [place] [address] January, [facility] [address] [facility] [id number] [address] [place] [id number] Dec, [facility] [address] [facility] [id number] [address] [place] [id number] Nov, [facility] [address] [facility] [id number] [address] [place] [id number] Nov, IMMUNIZATIONS No Known Immunizations SOCIAL HISTORY Never Assessed REASON FOR VISIT Missed appt PLAN OF CARE VITAL SIGNS MEDICATIONS No [...]
--- OUTSIDE RECORDS SUMMARY | 2019-12-04 12:04 | XMS REPORT ---
Author Author Shireen YOUNGER [facility] eClinicalWorks Address Unknown Phone Unavailable Care Team Providers Care Drawing Supervisor Name Role Phone PEMA YOUNGER CP Unavailable [...] patient &/family, 45 minutes, established patient CPT-4 [id number] Aug 14, 2015 Results No Known Results Summary Purpose eClinicalWorks Submission
--- OUTSIDE RECORDS SUMMARY | 2019-12-04 12:04 | XMS REPORT ---
Author Author Shireen Cantu Organization [facility] Address [address] [place] [address] Care Team Providers Care Pharmaceutical Laboratory Technician Name Role Phone SONAL Cantu Unavailable PROBLEMS Type Condition ICD9-CM Code [id number] Code Onset Dates Condition S tatus SNOMED Code Problem Bipolar disorder, current episode depressed, moderate F31.32 Active 236858848 Problem Anorexia nervosa F50.00 Active 568 40026 Problem Personality disorder, unspecified F60.9 Active 87136329 Problem Post-traumatic stress disorder, chronic F43.12 Active [id number] ALLERGIES No Information ENCOUNTERS Encounter Location Date Diagnosis [place] [address] [place] [id number] [place] [phone] Jul, Bipolar disorder, current ep isode depressed, moderate F31.32 and Anorexia nervosa F50.00 [facility] [address] [place] [id number] [address] [place] [address] Jul, [place] [address] [place] [id number] [place] [address] Jul, [place] [address] [place] [id number] [address] [place] [address] Jul, [facility] [id number] [address] [place] [address] Jun, Bipolar disorder, current ep isode depressed, moderate F31.32 ; Post-traumatic stress disorder, chronic F43.12 and Eating disorder, unspecified F50.9 [facility] [address] [facility] [id number] [address] [place] [address] May, [place] [address] [place] [id number] [place] [address] Apr, Bipolar disorder, current ep isode depressed, moderate F31.32 ; Post-traumatic stress disorder, chronic F43.12 and Eating disorder, unspecified F50.9 [place] [address] [id number] [address] [place], [place] [id number] 14 Feb, 2016 Bipolar disorder, current ep isode depressed, moderate F31.32 ; Post-traumatic stress disorder, chronic F43.12 and Personality disorder, unspecified F60.9 [place] [address] [id number] [address] [place] [address] Feb, Bipolar II disorder F31.81 [place] [address] [id number] [address] [place], [place] [address] Dec, Bipolar disorder, current ep isode depressed, moderate F31.32 ; Post-traumatic stress disorder, chronic F43.12 and Personality disorder, unspecified F60.9 [place] [address] [id number] [address] [place], [place] [address] Dec, Bipolar disorder, current ep isode depressed, moderate F31.32 ; Post-traumatic stress disorder, chronic F43.12 and Personality disorder, unspecified F60.9 [place] [address] [id number] [address] [place], [place] [address] Dec, [place] [address] [id number] [address] [place], [place] [id number] Dec, [place] [address] [id number] [address] [place] [address] Dec, Bipolar disorder, current ep isode depressed, moderate F31.32 ; Post-traumatic stress disorder, chronic F43.12 and Personality disorder, unspecified F60.9 [place] [address] [id number] [address] [place] [address] Nov, [place] [address] [id number] [address] [place] [address] Nov, Bipolar disorder, current ep isode depressed, moderate F31.32 ; Post-traumatic stress disorder, chronic F43.12 and Personality disorder, unspecified F60.9 [place] [address] [facility] [id number] [address] [place] [address] Nov, Bipolar disorder, current ep isode depressed, moderate F31.32 ; Post-traumatic stress disorder, chronic F43.12 and Personality disorder, unspecified F60.9 [place] [address] [facility] [id number] [address] [place] [address] Oct, [place] [address] [facility] [id number] [address] [place] [address] Oct, Bipolar disorder, current ep isode depressed, moderate F31.32 ; Post-traumatic stress disorder, chronic F43.12 and Personality disorder, unspecified F60.9 [place] [address] [facility] [id number] [address] [place] [address] Oct, Bipolar disorder, current ep isode depressed, moderate F31.32 ; Post-traumatic stress disorder, chronic F43.12 and Personality disorder, unspecified F60.9 [place] [address] [facility] [id number] [address] [place] [address] Aug, Bipolar II disorder F31.81 a nd Post-traumatic stress disorder, unspecified F43.10 [place] [address] [facility] [id number] [address] [place] [address] Aug, Bipolar disorder, current ep isode depressed, moderate F31.32 ; Post-traumatic stress disorder, chronic F43.12 and Personality disorder, unspecified F60.9 [place] [address] [facility] [id number] [address] [place] [address] Jul, Bipolar disorder, unspecifie d 296.80 and Posttraumatic stress disorder 309.81 [place] [address] [facility] [id number] [address] [place] [address] Jul, Post-traumatic stress disord er, chronic F43.12 ; Personality disorder, unspecified F60.9 and Bipolar disorder, current episode depressed, moderate F31.32 [place] [address] [facility] [id number] [address] [place] [address] Jun, Bipolar disorder, unspecifie d 296.80 and Posttraumatic stress disorder 309.81 [facility] [address] [facility] [id number] [address] [place] [address] Jun, Bipolar disorder, unspecifie d 296.80 and Posttraumatic stress disorder 309.81 [facility] [address] [facility] [id number] [address] [place] [address] Jun, Posttraumatic stress disorde r 309.81 and Bipolar disorder, unspecified 296.80 [facility] [address] [facility] [id number] [address] [place] [address] May, Bipolar II disorder 296.89 a nd Post traumatic stress disorder 309.81 [facility] [address] [facility] [id number] [address] [place] [address] May, Bipolar II disorder 296.89 a nd Post traumatic stress disorder 309.81 [facility] [address] [place] [id number] [place] [address] May, [facility] [address] [facility] [id number] [address] [place] [address] May, [facility] [address] [place] [id number] [place] [address] May, [facility] [address] [place] [id number] [place] [address] May, [facility] [address] [place] [id number] [place] [address] May, Bipolar II disorder 296.89 a nd Post traumatic stress disorder 309.81 [facility] [address] [facility] [id number] [address] [place] [address] May, Bipolar I disorder, most rec ent episode (or current) depressed, moderate 296.52 ; Posttraumatic stress disorder 309.81 and Anxiety state, unspecified 300.00 [facility] [address] [place] [id number] [place] [address] Apr, Bipolar II disorder 296.89 a nd Post traumatic stress disorder 309.81 [facility] [address] [id number] [address] [place] [address] Apr, [facility] [address] [id number] [address] [place] [address] Apr, Bipolar II disorder 296.89 a nd Post traumatic stress disorder 309.81 [facility] [address] [id number] [address] [place] [address] Apr, Bipolar II disorder 296.89 a nd Post traumatic stress disorder 309.81 [facility] [address] [id number] [address] [place] [address] Mar, Bipolar II disorder 296.89 a nd Post traumatic stress disorder 309.81 [facility] [address] [id number] [address] [place] [address] Mar, [facility] [address] [id number] [address] [place] [address] Mar, Bipolar II disorder 296.89 a nd Post traumatic stress disorder 309.81 [facility] [address] [id number] [address] [place] [address] Mar, Bipolar II disorder 296.89 a nd Post traumatic stress disorder 309.81 [facility] [address] [id number] [address] [place] [address] Mar, Bipolar II disorder 296.89 a nd Post traumatic stress disorder 309.81 [facility] [address] [id number] [address] [place] [address] Mar, [facility] [address] [id number] [address] [place] [address] Mar, Bipolar II disorder 296.89 a nd Post traumatic stress disorder 309.81 [facility] [address] [id number] [address] [place] [address] Feb, Bipolar II disorder 296.89 a nd Post traumatic stress disorder 309.81 [facility] [address] [id number] [address] [place] [address] 16 Feb, 2015 [facility] [address] [id number] [address] [place] [address] Feb, Bipolar disorder, unspecifie d 296.80 and Anxiety state, unspecified 300.00 [facility] [address] [id number] [address] [place] [address] Feb, [facility] [address] [id number] [address] [place] [address] Feb, [facility] [address] [id number] [address] [place] [address] January, [facility] [address] [id number] [address] [place] [address] Dec, [facility] [address] [id number] [address] [place] [address] Dec, [facility] [address] [id number] [address] [place] [address] Nov, [facility] [address] [id number] [address] [place] [address] Nov, [facility] [address] [id number] [address] [place] [address] Nov, [facility] [address] [id number] [address] [place] [address] Nov, [facility] [address] [id number] [address] [place] [address] Nov, [facility] [address] [id number] [address] [place] [address] Nov, [facility] [address] [id number] [address] [place] [address] Nov, [facility] [address] [id number] [address] [place] [address] Nov, [facility] [address] [id number] [address] [place] [address], [place] [address] Nov, [facility] [address] [id number] [address] [place] [address], [place] [address] Oct, [facility] [address] [id number] [address] [place] [address], [place] [address] Oct, 2014 [facility] [address] [id number] [address] [place] [address], [place] [address] Oct, 2014 [facility] [address] [id number] [address] [place] [address], [place] [address] Oct, [facility] [address] [id number] [address] [place] [address], [place] [address] Oct, [facility] [address] [id number] [address] [place] [address], [place] [address] Oct, [facility] [address] [id number] [address] [place] [address], [place] [address] Oct, [facility] [address] [id number] [address] [place] [address], [place] [address] Oct, [facility] [address] [id number] [address] [place] [address], [place] [address] Sep, [facility] [address] [id number] [address] [place] [address], [place] [address] Sep, [facility] [address] [id number] [address] [place] [address], [place] [address] Sep, [facility] [address] [id number] [address] [place] [address] Sep, [facility] [address] [id number] [address] [place] [address], [place] [address] Sep, [facility] [address] [id number] [address] [place] [address] Sep, [facility] [address] [id number] [address] [place] [address] Sep, [facility] [address] [id number] [address] [place] [address], [place] [address] Sep, [facility] [address] [id number] [address] [place] [address], [place] [address] Sep, [facility] [address] [id number] [address] [place] [address], [place] [address] Sep, [facility] [address] [id number] [address] [place] [address], [place] [address] Aug, [facility] [address] [id number] [address] [place] [address], [place] [address] Aug, [facility] [address] [id number] [address] [place] [address], [place] [address] Aug, [facility] [address] [id number] [address] [place] [address], [place] [address] Aug, [facility] [address] [id number] [address] [place] [address], [place] [address] Aug, [facility] [address] [id number] [address] [place] [address], [place] [address] Aug, [facility] [address] [id number] [address] [place] [address], [place] [address] Aug, [facility] [address] [id number] [address] [place] [address], [place] [address] Aug, [facility] [address] [id number] [address] [place] [address], [place] [address] Jul, [facility] [address] [id number] [address] [place] [address], [place] [address] Jul, [facility] [address] [id number] [address] [place] [address], [place] [address] Jul, [facility] [address] [id number] [address] [place] [address], [place] [address] Jul, [facility] [address] [id number] [address] [place] [address], [place] [address] Jul, [facility] [address] [id number] [address] [place] [address], [place] [address] Jul, [facility] [address] [id number] [address] [place] [address], [place] [address] Jul, [facility] [address] [id number] [address] [place] [address], [place] [address] Jul, [facility] [address] [id number] [address] [place] [address], [place] [address] Jul, [facility] [address] [id number] [address] [place] [address], [place] [address] Jun, [facility] [address] [id number] [address] [place] [address], [place] [address] Jun, [facility] [address] [id number] [address] [place] [address], [place] [address] Jun, [facility] [address] [id number] [address] [place] [address], [place] [address] Jun, [facility] [address] [id number] [address] [place] [address], [place] [address] Jun, [facility] [address] [id number] [address] [place] [address], [place] [address] Jun, [facility] [address] [id number] [address] [place] [address], [place] [address] 25 May, 2013 [facility] [address] [id number] [address] [place] [address], [place] [address] 25 Sep, 2013 [facility] [address] [id number] [address] [place] [address], [place] [address] 16 Sep, 2013 [facility] [address] [id number] [address] [place] [address], [place] [address] 16 Sep, 2013 [facility] [address] [id number] [address] [place] [address], [place] [address] May, [facility] [address] [id number] [facility] [place] [address] May, [facility] [address] [id number] [facility] [place] [address] Apr, [facility] [address] [id number] [facility] [place] [address] Apr, [facility] [address] [id number] [address] [place] [address], [place] [address] Apr, [facility] [address] [id number] [address] [place] [address], [place] [address] Apr, [facility] [address] [id number] [address] [place] [address], [place] [address] Apr, [facility] [address] [id number] [address] [place] [address], [place] [address] Apr, [facility] [address] [id number] [address] [place] [address], [place] [address] Mar, [facility] [address] [id number] [address] [place] [address], [place] [address] Mar, [facility] [address] [id number] [address] [place] [address], [place] [address] Mar, [facility] [address] [id number] [address] [place] [address], [place] [address] Mar, [facility] [address] [id number] [address] [place] [address], [place] [address] Mar, [facility] [address] [id number] [address] [place] [address], [place] [address] Mar, [facility] [address] [id number] [address] [place] [address], [place] [address] Mar, [facility] [address] [id number] [address] [place] [address], [place] [address] Mar, [facility] [address] [id number] [address] [place] [address], [place] [address] Mar, 2013 [facility] [address] [id number] [facility] [address] Mar, 2013 [facility] [address] [id number] [address] [place] [address], [place] [address] Mar, 2013 [facility] [address] [id number] [address] [place] [address], [place] [address] Mar, 2013 [facility] [address] [id number] [address] [place] [address], [place] [address] Mar, 2013 [facility] [address] [id number] [address] [place] [address], [place] [address] Mar, 2013 [facility] [address] [id number] [address] [place] [address], [place] [address] Mar, [facility] [address] [id number] [address] [place] [address], [place] [address] Mar, [facility] [address] [id number] [address] [place] [address], [place] [address] Feb, [facility] [address] [id number] [address] [place] [address], [place] [address] Feb, [facility] [address] [id number] [address] [place] [address], [place] [address] Feb, [facility] [address] [id number] [address] [place] [address], [place] [address] Feb, [facility] [address] [id number] [address] [place] [address], [place] [address] 24 Feb, 2014 [facility] [address] [id number] [address] [place] [address], [place] [address] Feb, [facility] [address] [id number] [address] [place] [address], [place] [address] Feb, [facility] [address] [id number] [address] [place] [address], [place] [address] 16 Feb, 2014 [facility] [address] [id number] [facility] [address] Feb, [facility] [address] [id number] [facility] [address] Feb, [facility] [address] [id number] [facility] [place] [address] Feb, [facility] [address] [id number] [address] [place] [address], [place] [address] Feb, [facility] [address] [id number] [address] [place] [address], [place] [address] Feb, [facility] [address] [id number] [address] [place] [address], [place] [address] January, [facility] [address] [id number] [address] [place] [address], [place] [address] January, [facility] [address] [id number] [address] [place] [address], [place] [address] January, [facility] [address] [id number] [address] [place] [address], [place] [address] January, [facility] [address] [id number] [address] [place] [address], [place] [address] January, [facility] [address] [id number] [address] [place] [address], [place] [address] January, [facility] [address] [id number] [address] [place] [address], [place] [address] January, [facility] [address] [id number] [address] [place] [address], [place] [address] January, [facility] [address] [id number] [address] [place] [address], [place] [address] January, [facility] [address] [id number] [address] [place] [address], [place] [address] January, [facility] [address] [id number] [address] [place] [address], [place] [address] January, [facility] [address] [id number] [address] [place] [address], [place] [address] January, [facility] [address] [id number] [address] [place] [address], [place] [address] January, [facility] [address] [id number] [address] [place] [address], [place] [address] January, [facility] [address] [id number] [address] [place] [address], [place] [address] Dec, [facility] [address] [id number] [address] [place] [address], [place] [address] Dec, [facility] [address] [id number] [address] [place] [address], [place] [address] Dec, [facility] [address] [id number] [address] [place] [address], [place] [address] Dec, [facility] [address] [id number] [address] [place] [address], [place] [address] Dec, [facility] [address] [id number] [address] [place] [address], [place] [address] Dec, [facility] [address] [id number] [address] [place] [address], [place] [address] Dec, [facility] [address] [id number] [address] [place] [address], [place] [address] Dec, [facility] [address] [id number] [address] [place] [address], [place] [address] Nov, [facility] [address] [id number] [address] [place] [address], [place] [address] Nov, [facility] [address] [id number] [address] [place] [address], [place] [address] Nov, [facility] [address] [id number] [address] [place] [address], [place] [address] Nov, [facility] [address] [id number] [address] [place] [address], [place] [address] Oct, [facility] [address] [id number] [address] [place] [address], [place] [address] Oct, [facility] [address] [id number] [address] [place] [address], [place] [address] Oct, [facility] [address] [id number] [address] [place] [address], [place] [address] Oct, [facility] [address] [id number] [address] [place] [address], [place] [address] Oct, [facility] [address] [id number] [address] [place] [address], [place] [address] Oct, [facility] [address] [id number] [address] [place] [address], [place] [address] Sep, [facility] [address] [id number] [address] [place] [address], [place] [address] Sep, [facility] [address] [id number] [address] [place] [address], [place] [address] Sep, [facility] [address] [id number] [address] [place] [address], [place] [address] Sep, [facility] [address] [id number] [address] [place] [address], [place] [address] Sep, [facility] [address] [id number] [address] [place] [address], [place] [address] Sep, [facility] [address] [id number] [address] [place] [address], [place] [address] Sep, [facility] [address] [id number] [address] [place] [address], [place] [address] Sep, [facility] [address] [id number] [address] [place] [address], [place] [address] Sep, [facility] [address] [id number] [address] [place] [address], [place] [address] Sep, [facility] [address] [id number] [address] [place] [address], [place] [address] Aug, [facility] [address] [id number] [address] [place] [address], [place] [address] Aug, [facility] [address] [id number] [address] [place] [address], [place] [address] Aug, [facility] [address] [id number] [address] [place] [address], [place] [address] Aug, [facility] [address] [id number] [address] [place] [address], [place] [address] Aug, [facility] [address] [id number] [address] [place] [address], [place] [address] Aug, [facility] [address] [id number] [address] [place] [address], [place] [address] Aug, [facility] [address] [id number] [address] [place] [address], [place] [address] Aug, [facility] [address] [id number] [address] [place] [address], [place] [address] Jul, [facility] [address] [id number] [address] [place] [address], [place] [address] Jul, [facility] [address] [id number] [address] [place] [address] Jul, [facility] [address] [id number] [address] [place] [phone] Jul, [facility] [address] [id number] [address] [place] [address], [place] [address] Jul, [facility] [address] [id number] [address] [place] [address], [place] [address] Jul, [facility] [address] [id number] [address] [place] [phone] Jul, [facility] [address] [id number] [address] [place] [phone] Jul, [facility] [address] [id number] [address] [place] [address], [place] [address] Jul, [facility] [address] [id number] [address] [place] [phone] Jul, [facility] [address] [id number] [address] [place] [address], [place] [address] Jul, [facility] [address] [id number] [address] [place] [address] Jul, [facility] [address] [id number] [address] [place] [address], [place] [address] Jun, [facility] [address] [id number] [address] [place] [phone] Jun, [facility] [address] [id number] [address] [place] [address] Jun, [facility] [address] [id number] [address] [place] [address], [place] [address] Jun, [facility] [address] [id number] [address] [place] [phone] Jun, [facility] [address] [id number] [address] [place] [phone] Jun, [facility] [address] [id number] [address] [place] [phone] Jun, [facility] [address] [id number] [address] [place] [id number] Jun, [facility] [address] [id number] [address] [place] [address] 25 May, 2013 [facility] [address] [id number] [address] [place] [phone] 18 May, 2013 [facility] [address] [id number] [address] [place] [address], [place] [address] 11 May, 2013 [facility] [address] [id number] [address] [place] [address], [place] [address] 10 May, 2013 [facility] [address] [id number] [address] [place] [address], [place] [address] May, [facility] [address] [id number] [address] [place] [address], [place] [address] May, [facility] [address] [id number] [address] [place] [address], [place] [address] Apr, [facility] [address] [id number] [address] [place] [address], [place] [address] Apr, [facility] [address] [id number] [address] [place] [address], [place] [address] Apr, [facility] [address] [id number] [address] [place] [address], [place] [address] Apr, [facility] [address] [id number] [address] [place] [address], [place] [address] Apr, [facility] [address] [id number] [address] [place] [address], [place] [address] Mar, [facility] [address] [id number] [address] [place] [address], [place] [address] Mar, [facility] [address] [id number] [address] [place] [address], [place] [address] Mar, [facility] [address] [id number] [address] [place] [address], [place] [address] Feb, [facility] [address] [id number] [address] [place] [address], [place] [address] Feb, [facility] [address] [id number] [address] [place] [address], [place] [address] Feb, [facility] [address] [id number] [address] [place] [address], [place] [address] January, [facility] [address] [id number] [address] [place] [address], [place] [address] January, [facility] [address] [facility] [id number] [address] [place] [address] Dec, [facility] [address] [facility] [id number] [address] [place] [id number] Nov, [facility] [address] [facility] [id number] [address] [place] [phone] Nov, IMMUNIZATIONS No Known Immunizations SOCIAL HISTORY [...]
--- OUTSIDE RECORDS SUMMARY | 2019-12-04 12:04 | XMS REPORT ---
Author Author Shireen YOUNGER [facility] eClinicalWorks Address Unknown Phone Unavailable Care Team Providers Care Sparker And Patcher Name Role Phone PEMA YOUNGER CP Unavailable [...] patient &/family, 45 minutes, established patient CPT-4 [id number] May 29, 2015 Results No Known Results Summary Purpose eClinicalWorks Submission
--- OUTSIDE RECORDS SUMMARY | 2019-12-04 12:04 | XMS REPORT ---
Author Author Shireen YOUNGER [facility] eClinicalWorks Address Unknown Phone Unavailable Care Team Providers Care Nursing Technician Name Role Phone PEMA YOUNGER CP Unavailable Allergies No Known Allergies Problems Problem Type Condition Code Onset Dates Condition Statu s Assessment Bipolar disorder, unspecified 296.80 Active Problem Unspecified personality disorder 301.9 Active Assessment Posttraumatic stress disorder 309.81 Active Problem Other and unspecified bipolar disorders [...] patient &/family, 30 minutes, established patient CPT-4 [id number] Jul 04, 2015 Results No Known Results Summary Purpose eClinicalWorks Submission
== END 2019-11-29 23:35 | disposition short-term general hospital (02) ==
LOC: EDUNIT# 19:46 → ER FS 19:47 → UNDOADMIN 20:59 → 4TH 20:59 → ER FS 23:35
DX: S72.042A Displaced fracture of base of neck of left femur, initial encounter for closed fracture (principal); R40.2142 Coma scale, eyes open, spontaneous, at arrival to emergency department; R40.2252 Coma scale, best verbal response, oriented, at arrival to emergency department; R40.2362 Coma scale, best motor response, obeys commands, at arrival to emergency department; Z88.8 Allergy status to other drugs, medicaments and biological substances; Z85.41 Personal history of malignant neoplasm of cervix uteri; W01.0XXA Fall on same level from slipping, tripping and stumbling without subsequent striking against object, initial encounter; Y92.009 Unspecified place in unspecified non-institutional (private) residence as the place of occurrence of the external cause
CPT/HCPCS: 36415; 51702; 71045; 73502; 80053; 81000; 85025; 85610; 85730; 93005

== ENCOUNTER 2019-12-12 13:00 | Emergency (ER) | payer MEDICARE, OTHER ==
[~2019-12-12] VITALS: Ht 175 cm; Wt 56.8 kg
[2019-12-12] MEDS ORDERED: NS IV 1000 ML 1,000 ML IV SCH ×2 (13:15→19:00)
[2019-12-12] MEDS ORDERED: fentaNYL INJECTION 100 MCG/2 ML AMP IVP ONE ×2 (13:15→17:15)
[2019-12-12] MEDS ORDERED: ONDANSETRON 4 MG/2 ML (SDV) Z0FRAN IVP ONE (13:15)
--- NOTE | 2019-12-12 13:23 | ED General ---
General Stated Complaint: FALL; HIP PAIN History of Present Illness Date Seen by Provider: Dec 12, 2019 Time Seen by Provider: 13:19 Initial Comments Patient presenting to emergency department for evaluation of left hip pain status post fall that occurred yesterday. From what she told me she slipped in some water and fell on her hip and this is the only area she is hurting. She denies any head neck chest abdomen back or other externally pain and she denies any weakness numbness or tingling. Appears that she was seen here on November 28 and suffered a left subcapital hip fracture and was transferred to [facility] and according to the notes appear she had surgery on December 04 and then she has been in rehabilitation since that time. She was not on blood thinners before the incident however it appears she is now on Lovenox shots. Allergies and Home Medications Allergies Coded Allergies: prochlorperazine (Verified Allergy, Unknown, 11/29/19) Patient Home Medication List Home Medication List Reviewed: Yes Review of Systems Review of Systems Constitutional: no symptoms reported EENTM: no symptoms reported Respiratory: no symptoms reported Cardiovascular: no symptoms reported Gastrointestinal: no symptoms reported Genitourinary: no symptoms reported Musculoskeletal: joint pain Skin: no symptoms reported Psychiatric/Neurological: No Symptoms Reported All Other Systems Reviewed Negative Unless Noted: Yes Past Kmfvehn-Kfnitx-Yxuzzd Hx Patient Social History Alcohol Beverage of Choice: Wine 2nd Hand Smoke Exposure: No Recent Foreign Travel: Yes Recent Hopitalizations: No Seasonal Allergies Seasonal Allergies: No Past Medical History Surgeries: Yes Gallbladder, Hysterectomy Respiratory: No Cardiac: No Neurological: No Genitourinary: No Gastrointestinal: Yes Gall Bladder Disease Musculoskeletal: Yes Fractures Endocrine: No HEENT: No Cancer: Yes Cervical Did You Recieve Any Treatments: Yes What Type of Treatment Did You: Surgical Intervention Psychosocial: Yes Anxiety, Depression Integumentary: No Blood Disorders: No Physical Exam Vital Signs Vital Signs - First Documented 12/12/19 13:06 Temp 36.7 Pulse 114 Resp 18 B/P (MAP) 133/75 (94) Pulse Ox 100 O2 Delivery Room Air Capillary Refill : Height, Weight, BMI Height: '" Weight: lbs. oz. kg; 19.00 BMI Method: General Appearance: No Apparent Distress HEENT: PERRL/EOMI Neck: Non Tender, Supple Respiratory: Lungs Clear, No Respiratory Distress Cardiovascular: Regular Rate, Rhythm, Normal Peripheral Pulses Gastrointestinal: Non Tender, Soft Back: Normal Inspection, No Vertebral Tenderness Extremity: Normal Capillary Refill, Other (large hematoma to left hip region as well as pain to palpation and with attempted range of motion.) Neurologic/Psychiatric: Alert, Oriented x3, No Motor/Sensory Deficits Procedures/Interventions Patient Education: Explained Benefits, Explained Risks, Pt. Ack. Understanding Agreement on procedure with pt: Yes Patient History: Problem w/Aneshesia (says that she takes a long time to wake up from anesthesia) Breath Sounds per Auscultation: Clear Heart Sounds per Auscultation: Regular (tachycardic) Airway Exam: Mouth opens >2 fingers, Neck Full Range of Motion, Visulation of Uvula Patient initially given ketofol 25 mg of each with adequate sedation and no complications other than unsuccessful reduction. On second reduction attempt I gave her another 25 mg of ketamine addition to 2 bolus doses of 25 mg of propofol. Multiple hip reduction techniques under sedation with a complication of not being successful but no other noted palpitations. Progress/Results/Core Measures Suspected Sepsis SIRS Temperature: Pulse: Respiratory Rate: Laboratory Tests 12/12/19 13:20: White Blood Count 21.5H Blood Pressure / Mean: Laboratory Tests 12/12/19 13:20: Creatinine 0.77, INR Comment 1.0, Platelet Count 764H, Total Bilirubin 0.5 Results/Orders Lab Results Laboratory Tests Test 12/12/19 13:20 12/12/19 14:20 Range/Units White Blood Count 21.5 H 4.3-11.0 10^3/uL Red Blood Count 3.28 L 4.35-5.85 10^6/uL Hemoglobin 10.7 L 11.5-16.0 G/DL Hematocrit 32 L 35-52 % Mean Corpuscular Volume 99 80-99 FL Mean Corpuscular Hemoglobin 33 25-34 PG Mean Corpuscular Hemoglobin Concent 33 32-36 G/DL Red Cell Distribution Width 16.3 H 10.0-14.5 % Platelet Count 764 H 130-400 10^3/uL Mean Platelet Volume 8.4 7.4-10.4 FL Neutrophils (%) (Auto) 89 H 42-75 % Lymphocytes (%) (Auto) 5 L 12-44 % Monocytes (%) (Auto) 6 0-12 % Eosinophils (%) (Auto) 0 0-10 % Basophils (%) (Auto) 0 0-10 % Neutrophils # (Auto) 18.2 H 1.8-7.8 X 10^3 Lymphocytes # (Auto) 1.1 1.0-4.0 X 10^3 Monocytes # (Auto) 1.3 H 0.0-1.0 X 10^3 Eosinophils # (Auto) 0.0 0.0-0.3 10^3/uL Basophils # (Auto) 0.1 0.0-0.1 10^3/uL Neutrophils % (Manual) 87 % Lymphocytes % (Manual) 5 % Monocytes % (Manual) 5 % Eosinophils % (Manual) 0 % Basophils % (Manual) 0 % Band Neutrophils 3 % Platelet Estimate INCREASED Hypochromasia 1+ Microcytosis 1+ Macrocytosis 1+ Prothrombin Time 13.7 12.2-14.7 SEC INR Comment 1.0 0.8-1.4 Activated Partial Thromboplast Time 34 24-35 SEC Sodium Level 133 L 135-145 MMOL/L Potassium Level 3.8 3.6-5.0 MMOL/L Chloride Level 94 L 98-107 MMOL/L Carbon Dioxide Level 25 21-32 MMOL/L Anion Gap 14 5-14 MMOL/L Blood Urea Nitrogen 14 7-18 MG/DL Creatinine 0.77 0.60-1.30 MG/DL Estimat Glomerular Filtration Rate > 60 BUN/Creatinine Ratio 18 Glucose Level 106 H 70-105 MG/DL Calcium Level 9.1 8.5-10.1 MG/DL Corrected Calcium 9.9 8.5-10.1 MG/DL Total Bilirubin 0.5 0.1-1.0 MG/DL Aspartate Amino Transf (AST/SGOT) 33 5-34 U/L Alanine Aminotransferase (ALT/SGPT) 23 0-55 U/L Alkaline Phosphatase 121 40-136 U/L Total Protein 6.4 6.4-8.2 GM/DL Albumin 3.0 L 3.2-4.5 GM/DL Urine Color YELLOW Urine Clarity CLOUDY H Urine pH 6.0 5-9 Urine Specific [place] 1.020 1.016-1.022 Urine Protein 2+ H NEGATIVE Urine Glucose (UA) NEGATIVE NEGATIVE Urine Ketones 1+ H NEGATIVE Urine Nitrite POSITIVE H NEGATIVE Urine Bilirubin NEGATIVE NEGATIVE Urine Urobilinogen 0.2 < = 1.0 MG/DL Urine Leukocyte Esterase 2+ H NEGATIVE Urine RBC (Auto) 2+ H NEGATIVE Urine RBC 5-10 H /HPF Urine WBC >100 H /HPF Urine Squamous Epithelial Cells NONE /HPF Urine Crystals NONE /LPF Urine Bacteria LARGE H /HPF Urine Casts NONE /LPF Urine Mucus SMALL H /LPF Urine Culture Indicated YES My Orders Orders - SHELIA DAVID DO Cbc With Automated Diff (12/12/19 13:13) Comprehensive Metabolic Panel (12/12/19 13:13) Partial Thromboplastin Time (12/12/19 13:13) Protime With Inr (12/12/19 13:13) Ns Iv 1000 Ml (Sodium Chloride 0.9%) (12/12/19 13:15) Ondansetron Injection (Zofran Injectio (12/12/19 13:15) Fentanyl Injection (Sublimaze Injection (12/12/19 13:15) Hip 2-3 View Left (12/12/19 13:13) Manual Differential (12/12/19 13:20) Ketamine Syringe (Ed Only) (Ketamine Syr (12/12/19 14:30) Propofol Injection (Diprivan Injection) (12/12/19 14:30) Ua Culture If Indicated (12/12/19 14:17) Hip 2-3 View Left (12/12/19 14:32) Urine Culture (12/12/19 14:20) Ceftriaxone For Iv Use (Rocephin For I (12/12/19 14:45) Hip (Single View) Left (12/12/19 15:36) Medications Given in ED Current Medications Medications Dose Ordered Sig/Lesley Route Start Time Stop Time Status Last Admin Dose Admin Ceftriaxone Sodium 2000 mg/ Sterile Water 20 ml @ 240 mls/hr ONCE ONCE IV 12/12/19 14:45 12/12/19 14:49 DC 12/12/19 14:52 240 MLS/HR Fentanyl Citrate 50 mcg ONCE ONCE IVP 12/12/19 13:15 12/12/19 13:16 DC 12/12/19 13:29 50 MCG Ketamine HCl 25 mg ONCE ONCE IV 12/12/19 14:30 12/12/19 14:31 DC 12/12/19 14:25 25 MG Ondansetron HCl 4 mg ONCE ONCE IVP 12/12/19 13:15 12/12/19 13:16 DC 12/12/19 13:29 4 MG Propofol 25 mg ONCE ONCE IV 12/12/19 14:30 12/12/19 14:31 DC 12/12/19 14:28 25 MG Vital Signs/I&O 12/12/19 13:06 Temp 36.7 Pulse 114 Resp 18 B/P (MAP) 133/75 (94) Pulse Ox 100 O2 Delivery Room Air Capillary Refill : Progress Note : Progress Note From what I understand an x-ray was done last night that confirmed she had a lef t hip dislocation. I will acquire hip imaging here treat her pain and reassess. I called [facility] about her hip dislocation and the transfer coronary spoke to Dr. Manriquez and requested that I try and reduce the knee. I explained this to patient and she was agreeable and we spoke to her on the emergency contact listed in the paperwork and verbalized understanding and were agreeable with the recommendations we have. On the first reduction attempt I felt a pop and I was confident that it had been reduced however on x-ray it was not. We brought her back to the room and after approximately 45 minutes did a second sedation and again I felt a pop but it was not reduced. I tried again one last time in the x-ray suite to reduce it but was unsuccessful and further attempts were not attempted. My techniques included Capt. Deras technique with internal/external rotation as well as standing on the bed with direct traction while internally and externally rotating and also attempted direct traction while pushing on the superior dislocated hip joint. Unfortunately none of these techniques were successful. I spoke to transfer line and let them know that she does meet sepsis criteria from UTI and she has been started on Rocephin and IV fluids. They said they would accept her to the emergency department and Dr. Manriquez as the accepting physician. Patient transferred in stable condition. Departure Impression Primary Impression: Hip dislocation, left Additional Impressions: Sepsis UTI (urinary tract infection) Disposition: 02 XFER SHT-TRM HOSP Condition: Unchanged Transfer Transfer Reason: Exceeds level of care Transfer Facility: [facility] Method of Transfer: EMS Departure-Patient Inst. Referrals: [facility] (PCP/Family) Primary Care Physician SHELIA DAVID DO Dec 12, 2019 13:23
[2019-12-12 13:53] LABS: BASOPHILS % (AUTO) 0 % (0-10); EOSINOPHILS % (AUTO) 0 % (0-10); HEMATOCRIT 32 % (35-52); HEMOGLOBIN 10.7 G/DL (11.5-16.0); LYMPHOCYTES % (AUTO) 5 % (12-44); MEAN CORPUSCULAR HEMOGLOBIN 33 PG (25-34); MEAN CORPUSCULAR HGB CONC 33 G/DL (32-36); MEAN CORPUSCULAR VOLUME 99 FL (80-99); MEAN PLATELET VOLUME 8.4 FL (7.4-10.4); MONOCYTES % (AUTO) 6 % (0-12); NEUTROPHILS % (AUTO) 89 % (42-75); PLATELET COUNT 764 10^3/uL (130-400); RED CELL DISTRIBUTION WIDTH 16.3 % (10.0-14.5); WHITE BLOOD COUNT 21.5 10^3/uL (4.3-11.0)
[2019-12-12 13:54] LABS: BASOPHILS # (AUTO) 0.1 10^3/uL (0.0-0.1); LYMPHOCYTES # (AUTO) 1.1 X 10^3 (1.0-4.0); MONOCYTES # (AUTO) 1.3 X 10^3 (0.0-1.0); NEUTROPHILS # (AUTO) 18.2 X 10^3 (1.8-7.8)
[2019-12-12 13:55] LABS: PROTHROMBIN TIME PATIENT 13.7 SEC (12.2-14.7)
--- NOTE | 2019-12-12 13:56 | Diagnostic Imaging Report ---
INDICATION: Fall with left hip pain. AP oblique views of the left hip are obtained at 1:41 p.m. There is dislocation of the left hip prosthesis with the femoral head component displaced superiorly and laterally relative to the acetabulum. No evidence of fracture is seen. IMPRESSION: There is dislocation of left hip prosthesis. No associated fracture is seen. Dictated by: Dictated on workstation # [id number]
[2019-12-12 14:02] LABS: CARBON DIOXIDE 25 MMOL/L (21-32); CHLORIDE 94 MMOL/L (98-107); POTASSIUM 3.8 MMOL/L (3.6-5.0); SODIUM 133 MMOL/L (135-145)
[2019-12-12 14:03] LABS: ALANINE AMINOTRANSFERASE 23 U/L (0-55); ALKALINE PHOSPHATASE 121 U/L (40-136); BILIRUBIN,TOTAL 0.5 MG/DL (0.1-1.0); BUN/CREATININE RATIO 18; CALCIUM 9.1 MG/DL (8.5-10.1); CREATININE SERUM 0.77 MG/DL (0.60-1.30); GFR ESTIMATED > 60; GLUCOSE 106 MG/DL (70-105); TOTAL PROTEIN 6.4 GM/DL (6.4-8.2)
[2019-12-12 14:14] LABS: BAND NEUTROPHILS 3 %; NEUTROPHILS % (MANUAL) 87 %
[2019-12-12 14:15] LABS: BASOPHILS % (MANUAL) 0 %; EOSINOPHILS % (MANUAL) 0 %; HYPOCHROMASIA 1+; LYMPHOCYTES % (MANUAL) 5 %; MICROCYTOSIS 1+; MONOCYTES % (MANUAL) 5 %; PLATELET ESTIMATE INCREASED
[2019-12-12 14:28] LABS: CLARITY,URINE CLOUDY; COLOR,URINE YELLOW
[2019-12-12] MEDS ORDERED: proPOfol 200 MG/20 ML (DIPRIVAN) VIAL IV ONE ×3 (14:30→15:40)
[2019-12-12] MEDS ORDERED: KETAMINE/NaCl 50 MG/5 ML SYRINGE (ED ONLY) IV ONE ×2 (14:30→15:25)
[2019-12-12 14:34] LABS: BACTERIA,URINE LARGE /HPF; BILIRUBIN,URINE NEGATIVE (NEGATIVE); GLUCOSE, URINE (UA) NEGATIVE (NEGATIVE); KETONES,URINE 1+ (NEGATIVE); LEUKOCYTE ESTERASE ,URINE 2+ (NEGATIVE); NITRITE,URINE POSITIVE (NEGATIVE); PROTEIN,URINE 2+ (NEGATIVE); WBC,URINE >100 /HPF
[2019-12-12] MEDS ORDERED: cefTRIAXone FOR IV USE 2,000 MG in WATER (STERILE) FOR INJECTION 20 ML IV ONE (14:45)
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
--- OUTSIDE RECORDS SUMMARY | 2019-12-12 15:04 | XMS REPORT ---
Author Author Shireen Moyer Doctor Organization [facility] Address Unknown Phone Unavailable Care Team Providers Care Roaster Helper Name Role Phone Migration, Doctor Unavailable Unavailable PROBLEMS Type Condition ICD9-CM Code [id number] Code Onset Dates Condition S tatus SNOMED Code Problem FPC systemic steroid user Z79.52 Active [id number] Problem Rheumatoid arthritis involvi ng multiple sites, unspecified rheumatoid factor presence M06.9 Active 74911511 Problem Personality disorder, unspecified F60.9 Active 50125968 Problem Post-traumatic stress disorder, chronic F43.12 Active 19259301 Problem Bipolar disorder, current episode depressed, moderate F31.32 Active 782585271 Problem Anorexia nervosa F50.00 Active 568 50117 ALLERGIES No Information ENCOUNTERS Encounter Location Date Diagnosis [address] [address] [address] [address] Nov, [facility] [address] [place] [id number] [place] [address] Oct, Rheumatoid arthritis involving multiple sites, unspecified rheumatoid factor presence M06.9 [facility] [address] [place] [id number] [place] [address] Oct, 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 [facility] [address] [address] Oct, Bipolar disorder, current episode depressed, moderate F31.32 ; Anorexia nervosa F50.00 ; Rheumatoid arthritis involving multiple sites, unspecified rheumatoid factor presence M06.9 and 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 [facility] [address] [id number] [place] [address] Sep, [facility] [id number] [place] [address] Sep, Bipolar disorder, current episode depres sed, moderate F31.32 ; Post- traumatic stress disorder, chronic F43.12 and Anorexia nervosa F50.00 [facility] [address] [address] Sep, [facility] [address] [id number] Aug, [facility] [address] [address] Aug, [facility] [address] [address] Aug, [facility] [address] [address] Aug, Bipolar disorder, current episode depres sed, moderate F31.32 ; Post- traumatic stress disorder, chronic F43.12 ; Anorexia nervosa F50.00 and Personality disorder, unspecified F60.9 [facility] [address] [address] Jul, Bipolar disorder, current episode depres sed, moderate F31.32 and Anorexia nervosa F50.00 [facility] [address] [address] Jul, [facility] [address] [address] Jul, [facility] [address] [address] Jul, [facility] [address] [address] Jun, Bipolar disorder, current episode depres sed, moderate F31.32 ; Post- traumatic stress disorder, chronic F43.12 and Eating disorder, unspecified F50.9 [facility] [address] [address] May, [facility] [address] [address] Apr, Bipolar disorder, current episode depres sed, moderate F31.32 ; Post- traumatic stress disorder, chronic F43.12 and Eating disorder, unspecified F50.9 [facility] [address] [address] 14 Feb, 2016 Bipolar disorder, current episode depres sed, moderate F31.32 ; Post- traumatic stress disorder, chronic F43.12 and Personality disorder, unspecified F60.9 [address] [address] [address] 14 Feb, 2016 Bipolar II disorder F31.81 [place] [address] [id number] Dec, Bipolar disorder, current episode depres sed, moderate F31.32 ; Post- traumatic stress disorder, chronic F43.12 and Personality disorder, unspecified F60.9 [place] [address] [address] Dec, Bipolar disorder, current episode depres sed, moderate F31.32 ; Post- traumatic stress disorder, chronic F43.12 and Personality disorder, unspecified F60.9 [place] [address] [address] Dec, [place] [address] [address] Dec, [place] [address] [address] Dec, Bipolar disorder, current episode depres sed, moderate F31.32 ; Post- traumatic stress disorder, chronic F43.12 and Personality disorder, unspecified F60.9 [place] [address] [address] Nov, [facility] [address] [address] Nov, Bipolar disorder, current episode depres sed, moderate F31.32 ; Post- traumatic stress disorder, chronic F43.12 and Personality disorder, unspecified F60.9 [facility] [address] [address] Nov, Bipolar disorder, current episode depres sed, moderate F31.32 ; Post- traumatic stress disorder, chronic F43.12 and Personality disorder, unspecified F60.9 [place] [address] [address] Oct, [place] [address] [address] Oct, Bipolar disorder, current episode depres sed, moderate F31.32 ; Post- traumatic stress disorder, chronic F43.12 and Personality disorder, unspecified F60.9 [place] [address] [address] Oct, Bipolar disorder, current episode depres sed, moderate F31.32 ; Post- traumatic stress disorder, chronic F43.12 and Personality disorder, unspecified F60.9 [place] [address] [address] Aug, Bipolar II disorder F31.81 and Post-trau matic stress disorder, unspecified F43.10 [place] [address] [address] Aug, Bipolar disorder, current episode depres sed, moderate F31.32 ; Post- traumatic stress disorder, chronic F43.12 and Personality disorder, unspecified F60.9 [place] [address] [address] Jul, Bipolar disorder, unspecified 296.80 and Posttraumatic stress disorder 309.81 [place] [address] [address] Jul, Post-traumatic stress disorder, chronic F43.12 ; Personality disorder, unspecified F60.9 and Bipolar disorder, current episode depressed, moderate F31.32 [place] [address] [address] Jun, Bipolar disorder, unspecified 296.80 and Posttraumatic stress disorder 309.81 [place] [address] [address] Jun, Bipolar disorder, unspecified 296.80 and Posttraumatic stress disorder 309.81 [facility] [address] [address] Jun, Posttraumatic stress disorder 309.81 and Bipolar disorder, unspecified 296.80 [facility] [address] [address] May, 2014 Bipolar II disorder 296.89 and Post trau matic stress disorder 309.81 [facility] [address] [address] May, 2014 Bipolar II disorder 296.89 and Post trau matic stress disorder 309.81 [facility] [address] [address] May, 2014 [facility] [address] [address] May, 2014 [facility] [address] [address] May, 2014 [facility] [address] [address] May, 2014 [facility] [address] [address] May, Bipolar II disorder 296.89 and Post trau matic stress disorder 309.81 [facility] [address] [address] May, Bipolar I disorder, most recent episode (or current) depressed, moderate 296.52 ; Posttraumatic stress disorder 309.81 and Anxiety state, unspecified 300.00 [facility] [address] [address] Apr, Bipolar II disorder 296.89 and Post trau matic stress disorder 309.81 [facility] [address] [address] Apr, [facility] [address] [address] Apr, Bipolar II disorder 296.89 and Post trau matic stress disorder 309.81 [facility] [address] [id number] [place] [address] Apr, Bipolar II disorder 296.89 and Post trau matic stress disorder 309.81 [facility] [address] [id number] [place] [address] Mar, Bipolar II disorder 296.89 and Post trau matic stress disorder 309.81 [facility] [address] [address] Mar, [facility] [address] [address] Mar, Bipolar II disorder 296.89 and Post trau matic stress disorder 309.81 [facility] [address] [address] Mar, Bipolar II disorder 296.89 and Post trau matic stress disorder 309.81 [facility] [id number] [place] [address] Mar, Bipolar II disorder 296.89 and Post trau matic stress disorder 309.81 [facility] [address] [address] Mar, [facility] [address] [address] Mar, Bipolar II disorder 296.89 and Post trau matic stress disorder 309.81 [facility] [id number] [place] [address] Feb, Bipolar II disorder 296.89 and Post trau matic stress disorder 309.81 [facility] [id number] [place] [address] Feb, [facility] [address] [address] Feb, Bipolar disorder, unspecified 296.80 and Anxiety state, unspecified 300.00 [facility] [address] [address] Feb, [facility] [address] [id number] [place] [address] Feb, [facility] [address] [id number] [place] [address] January, [facility] [address] [id number] [place] [address] 14 Dec, 2014 [facility] [address] [id number] [place] [address] Dec, [facility] [address] [id number] [place] [address] Nov, [facility] [address] [id number] [place] [address] Nov, [facility] [address] [id number] [place] [address] Nov, [facility] [address] [id number] [place] [address] Nov, [facility] [address] [id number] [place] [address] Nov, [facility] [address] [id number] [place] [address] Nov, [facility] [address] [id number] [place] [address] Nov, [facility] [address] [id number] [place] [address] Nov, [facility] [address] [id number] [place] [address] Nov, [facility] [address] [id number] [place] [address] Oct, [facility] [address] [id number] [place] [address] Oct, [facility] [address] [id number] [place] [address] Oct, [facility] [address] [id number] [place] [address] Oct, [facility] [address] [facility] [id number] [place] [address] Oct, [facility] [address] [id number] [place] [address] Oct, [facility] [address] [id number] [place] [address] Oct, [facility] [address] [id number] [place] [address] Oct, [facility] [address] [id number] [place] [address] Sep, [facility] [address] [id number] [place] [address] Sep, [facility] [address] [id number] [place] [address] Sep, [facility] [address] [id number] [place] [address] Sep, [facility] [address] [id number] [place] [address] Sep, [facility] [address] [id number] [place] [address] Sep, [facility] [address] [id number] [place] [address] Sep, [facility] [address] [id number] [place] [address] Sep, [facility] [address] [id number] [place] [address] Sep, [facility] [address] [id number] [place] [address] Sep, [facility] [address] [id number] [place] [address] Aug, [facility] [address] [id number] [place] [address] Aug, [facility] [address] [id number] [place] [address] Aug, [facility] [address] [id number] [place] [address] Aug, [facility] [address] [id number] [place] [address] Aug, [facility] [address] [id number] [place] [address] Aug, [facility] [address] [id number] [place] [address] Aug, [facility] [address] [id number] [place] [address] Aug, [facility] [address] [id number] [place] [address] Jul, [facility] [address] [id number] [place] [address] Jul, [facility] [address] [id number] [place] [address] Jul, [facility] [address] [id number] [place] [address] Jul, [facility] [address] [id number] [place] [address] Jul, [facility] [address] [id number] [place] [address] Jul, [facility] [address] [id number] [place] [address] Jul, [facility] [address] [id number] [place] [address] Jul, [facility] [address] [id number] [place] [address] Jul, [facility] [address] [id number] [place] [address] Jun, [facility] [address] [id number] [place] [address] Jun, [facility] [address] [id number] [place] [address] Jun, [facility] [address] [facility] [id number] [facility] [address] Jun, [facility] [address] [facility] [id number] [place] [address] Jun, [facility] [address] [facility] [id number] [place] [address] Jun, [facility] [address] [facility] [id number] [place] [address] May, [facility] [address] [facility] [id number] [place] [address] May, [facility] [address] [id number] [place] [address] May, [facility] [address] [id number] [place] [address] May, [facility] [address] [facility] [id number] [place] [address] May, [facility] [address] [id number] [place] [address] May, [facility] [address] [id number] [place] [address] Apr, [facility] [address] [id number] [place] [address] Apr, [facility] [address] [facility] [id number] [place] [address] Apr, [facility] [address] [id number] [place] [address] Apr, [facility] [address] [facility] [id number] [place] [address] Apr, [facility] [address] [id number] [place] [address] Apr, [facility] [address] [id number] [place] [address] Mar, 2013 [facility] [address] [id number] [facility] [address] Mar, 2013 [facility] [address] [facility] [id number] [place] [address] Mar, 2013 [facility] [address] [facility] [id number] [facility] [address] Mar, 2013 [facility] [address] [facility] [id number] [place] [address] Mar, 2013 [facility] [address] [id number] [place] [address] Mar, 2013 [facility] [address] [id number] [place] [address] Mar, 2013 [facility] [address] [id number] [place] [address] Mar, 2013 [facility] [address] [id number] [place] [address] Mar, 2013 [facility] [address] [facility] [id number] [place] [address] Mar, 2013 [facility] [address] [id number] [place] [address] Mar, 2013 [facility] [address] [id number] [place] [address] Mar, 2013 [facility] [address] [id number] [place] [address] Mar, 2013 [facility] [address] [facility] [id number] [place] [address] Mar, 2013 [facility] [address] [id number] [place] [address] Mar, 2013 [facility] [address] [id number] [place] [address] Mar, 2013 [facility] [address] [id number] [place] [address] Feb, [facility] [address] [facility] [id number] [place] [address] Feb, [facility] [address] [id number] [place] [address] Feb, [facility] [address] [id number] [place] [address] Feb, [facility] [address] [id number] [place] [address] Feb, [facility] [address] [id number] [place] [address] Feb, [facility] [address] [id number] [place] [address] Feb, [facility] [address] [id number] [place] [address] Feb, [facility] [address] [id number] [place] [address] Feb, [facility] [address] [id number] [place] [address] Feb, [facility] [address] [id number] [place] [address] Feb, [facility] [address] [id number] [place] [address] Feb, [facility] [address] [id number] [place] [address] Feb, [facility] [address] [id number] [place] [address] January, [facility] [address] [id number] [place] [address] January, [facility] [address] [id number] [place] [address] January, [facility] [address] [id number] [place] [address] January, [facility] [address] [id number] [place] [address] January, [facility] [address] [id number] [facility] [address] January, [facility] [address] [id number] [facility] [address] January, [facility] [address] [facility] [id number] [facility] [address] January, [facility] [address] [id number] [facility] [address] January, [facility] [address] [id number] [facility] [address] January, [facility] [address] [id number] [facility] [address] January, [facility] [address] [id number] [place] [address] January, [facility] [address] [id number] [facility] [address] January, [facility] [address] [facility] [id number] [place] [address] January, [facility] [address] [id number] [facility] [address] Dec, [facility] [address] [id number] [place] [address] Dec, [facility] [address] [id number] [place] [address] Dec, [facility] [address] [id number] [place] [address] Dec, [facility] [address] [id number] [place] [address] Dec, [facility] [address] [facility] [id number] [place] [address] Dec, [facility] [address] [id number] [place] [address] Dec, [facility] [address] [id number] [place] [address] Dec, [facility] [address] [facility] [id number] [place] [address] Nov, [facility] [address] [id number] [place] [address] Nov, [facility] [address] [id number] [place] [address] Nov, [facility] [address] [id number] [place] [address] Nov, [facility] [address] [id number] [place] [address] Oct, [facility] [address] [id number] [place] [address] Oct, [facility] [address] [id number] [place] [address] Oct, [facility] [address] [id number] [place] [address] Oct, [facility] [address] [id number] [place] [address] Oct, [facility] [address] [id number] [place] [address] Oct, [facility] [address] [id number] [place] [address] Sep, [facility] [address] [id number] [place] [address] Sep, [facility] [address] [id number] [place] [address] Sep, [facility] [address] [id number] [place] [address] Sep, [facility] [address] [id number] [place] [address] Sep, [facility] [address] [id number] [place] [address] Sep, [facility] [address] [id number] [place] [address] Sep, [facility] [address] [id number] [place] [address] Sep, [facility] [address] [id number] [place] [address] Sep, [facility] [address] [id number] [place] [address] Sep, [facility] [address] [id number] [place] [address] Aug, [facility] [address] [id number] [place] [address] Aug, [facility] [address] [id number] [place] [address] Aug, [facility] [address] [id number] [place] [address] Aug, [facility] [address] [id number] [place] [address] Aug, [facility] [address] [id number] [place] [address] Aug, [facility] [address] [id number] [place] [address] Aug, [facility] [address] [id number] [place] [address] Aug, [facility] [address] [id number] [place] [address] Jul, [facility] [address] [id number] [place] [address] Jul, [facility] [address] [id number] [place] [address] Jul, [facility] [address] [id number] [place] [address] Jul, [facility] [address] [id number] [place] [address] Jul, [facility] [address] [id number] [place] [address] Jul, [facility] [address] [id number] [place] [address] Jul, [facility] [address] [id number] [place] [address] Jul, [facility] [address] [id number] [place] [address] Jul, [facility] [address] [id number] [place] [address] Jul, [facility] [address] [id number] [place] [address] Jul, [facility] [address] [id number] [place] [address] Jul, [facility] [address] [id number] [place] [address] Jun, [facility] [address] [id number] [place] [address] Jun, [facility] [address] [id number] [place] [address] Jun, [facility] [address] [id number] [place] [address] Jun, [facility] [address] [id number] [place] [address] Jun, [facility] [address] [id number] [place] [address] Jun, [facility] [address] [id number] [place] [address] Jun, [facility] [address] [id number] [place] [address] Jun, [facility] [address] [id number] [place] [address] May, [facility] [address] [id number] [facility] [address] 18 May, 2013 [facility] [address] [facility] [id number] [place] [address] 11 May, 2013 [facility] [address] [id number] [place] [address] 10 May, 2013 [facility] [address] [id number] [place] [address] 09 May, 2013 [facility] [address] [facility] [id number] [place] [address] 04 May, 2013 [facility] [address] [facility] [id number] [place] [address] 30 Apr, 2013 [facility] [address] [id number] [place] [address] Apr, [facility] [address] [id number] [place] [address] Apr, [facility] [address] [id number] [place] [address] Apr, [facility] [address] [id number] [place] [address] Apr, [facility] [address] [id number] [place] [address] Mar, [facility] [address] [id number] [place] [address] Mar, [facility] [address] [id number] [place] [address] Mar, [facility] [address] [facility] [id number] [place] [address] Feb, [facility] [address] [id number] [place] [address] Feb, [facility] [address] [id number] [place] [address] Feb, [facility] [address] [id number] [place] [address] January, [facility] [address] [id number] [place] [address] January, [facility] [address] [id number] [place] [address] Dec, [facility] [address] [id number] [place] [address] Nov, [facility] [address] [id number] [place] [address] Nov, IMMUNIZATIONS No Known Immunizations SOCIAL HISTORY Never Assessed REASON FOR VISIT PLAN OF CARE VITAL SIGNS Weight 128.12 lbs 2013-11-13 Temperature 98 degrees Fahrenheit 2013-11-13 Heart Rate 68 bpm 2013-11-13 Respiratory Rate 24 2013-11-13 MEDICATIONS Unknown Medications RESULTS No Results PROCEDURES [...]
--- NOTE | 2019-12-12 15:33 | Diagnostic Imaging Report ---
EXAMINATION: Left hip at 03:12 p.m. INDICATION: Post reduction. FINDINGS: The exam performed earlier today at 01:41 p.m. noted that the total hip prosthesis had been displaced superiorly and laterally with respect to the acetabulum. Reportedly, in the interval since the prior exam, an attempt at reduction has been made. Unfortunately, the prosthesis remains dislocated superiorly and laterally. There is still no fracture or acute bony abnormality noted. IMPRESSION: There is persistent dislocation of the total hip prosthesis on the left. A follow-up exam after reduction would be recommended. Dictated by: Dictated on workstation # [id number]
--- NOTE | 2019-12-12 16:11 | Diagnostic Imaging Report ---
INDICATION: Post reduction. TIME OF EXAM: 3:48 p.m. FINDINGS: Single view of the left hip was obtained and compared with earlier today. There continues to be a posterior left hip dislocation. Femoral head is located in a supra-acetabular location. There is a left hip prosthesis. No fractures are seen. IMPRESSION: Continued posteriorly dislocated left hip. Dictated by: Dictated on workstation # [id number]
--- NOTE | 2019-12-12 16:17 | NUR ---
Kaci with [facility] was called asking who to call for consent to transfer. She said Yola (friend). Kaci also told this RN that Yola told them that the patient called her earlier today. In that conversation the patient told Yola that she tried to kill herself at [facility] last night. This RN notified staff.
[2019-12-12] MEDS ORDERED: fentaNYL INJECTION 100 MCG/2 ML AMP ONE (17:04)
[2019-12-12 17:18] VITALS: BP 123/76
== END 2019-12-12 17:18 | disposition short-term general hospital (02) ==
LOC: EDUNIT# 13:00 → ER FS 13:05
DX: S73.005A Unspecified dislocation of left hip, initial encounter (principal); A41.9 Sepsis, unspecified organism; N39.0 Urinary tract infection, site not specified; Z88.8 Allergy status to other drugs, medicaments and biological substances; Z85.41 Personal history of malignant neoplasm of cervix uteri; W01.0XXA Fall on same level from slipping, tripping and stumbling without subsequent striking against object, initial encounter
CPT/HCPCS: 36415; 73501; 73502; 80053; 81000; 85007; 85027; 85610; 85730; 87088; 93041

== ENCOUNTER 2019-12-15 10:12 | Inpatient (IN) | payer MEDICARE, OTHER ==
[~2019-12-15] VITALS: Ht 175.2 cm; Wt 59.0 kg
[2019-12-15] MEDS ORDERED: MOM10U PO (10:55)
[2019-12-15] MEDS ORDERED: METH2.5T PO (10:55)
[2019-12-15] MEDS ORDERED: FERR324T PO (10:55)
[2019-12-15] MEDS ORDERED: OXYC-473 PO (10:55)
[2019-12-15] MEDS ORDERED: ACET325T38 PO (10:55)
[2019-12-15] MEDS ORDERED: METH750T3 PO (10:55)
[2019-12-15] MEDS ORDERED: BISA10SU8 RC (10:55)
[2019-12-15] MEDS ORDERED: ASPI-999 PO (10:55)
[2019-12-15] MEDS ORDERED: SENN-145 PO (10:55)
[2019-12-15] MEDS ORDERED: LAMO150T3 PO (10:55)
[2019-12-15] MEDS ORDERED: ESTR1PAT72 TD (10:55)
[2019-12-15] MEDS ORDERED: FOLI1TAB24 PO (10:55)
[2019-12-15] MEDS ORDERED: PRED5TAB PO (10:55)
[2019-12-15] MEDS ORDERED: POLY17PO6 PO (10:55)
--- NOTE | 2019-12-15 10:56 | NUR ---
ENTERED THE MED REC USING THE DISCHARGE ORDERS FOR [facility] AFTER THE MEDS ARE CONTINUED I WILL INTERVIEW THE PT AND MAKE CHANGES TO THE MED REC AND NOTES NEEDED
[2019-12-15] MEDS ORDERED: ONDANSETRON 4 MG (ZOFRAN) ORAL DISSOLVE TAB PO PRN (12:00)
[2019-12-15] MEDS ORDERED: BISACODYL 10 MG SUPP (DULCOLAX) PR PRN (12:00)
[2019-12-15] MEDS ORDERED: MELATONIN 3 MG TABLET PO PRN (12:00)
[2019-12-15] MEDS ORDERED: diphenhydrAMINE 25 MG TAB (BENADRYL) PO PRN (12:00)
[2019-12-15] MEDS ORDERED: LACTULOSE SYRUP 10GM/15ML (ENULOSE) 30ML UDC PO PRN (12:00)
[2019-12-15] MEDS ORDERED: guaiFENesin/CODEINE (ROBITUSSIN AC) 10ML UDC PO PRN (12:00)
[2019-12-15] MEDS ORDERED: LOPERAMIDE 2 MG (IMODIUM) TABLET PO PRN (12:00)
[2019-12-15] MEDS ORDERED: DOCUSATE SODIUM 100 MG (COLACE) CAP PO PRN (12:00)
[2019-12-15] MEDS ORDERED: CALCIUM CARBONATE 500 MG (TUMS) TAB.CHEW PO PRN (12:00)
[2019-12-15] MEDS ORDERED: FLEET ENEMA ADULT 1 EA BTL PR PRN (12:00)
[2019-12-15] MEDS ORDERED: ACETAMINOPHEN 500 MG TAB (TYLENOL) PO PRN (12:00)
[2019-12-15] MEDS ORDERED: ACETAMINOPHEN 325 MG TABLET PO PRN (12:15)
[2019-12-15] MEDS ORDERED: BISACODYL 10 MG SUPP (DULCOLAX) RC PRN (12:15)
[2019-12-15] MEDS ORDERED: FERROUS GLUCONATE 324 MG PO SCH (12:15)
[2019-12-15] MEDS ORDERED: MAGNESIUM HYDROXIDE PO PRN (12:15)
--- NOTE | 2019-12-15 12:30 | NUR ---
Shireen Mills admitted to room 233-1, with an admitting diagnosis of left hip fracture s/p ORIF, on 12/15/19 from [facility] via [facility], accompanied by STAFF.SHIREEN MILLS introduced to surroundings, call light, bed controls, phone, TV, temperature control, lights, meal times, smoking policy, visitor policy, side rail policy, bathrooms and showers. Patient Rights given to patient in the handbook.SHIREEN MILLS verbalizes understanding that [facility] is not responsible for the loss or damage to any personal effects or valuables that are kept in the patients possession during their hospitalization. The Patient'S Care Plans were discussed with the PATIENT WELL Discharge Planning. SHIREEN MILLS verbalizes understanding of Interdisciplinary Patient Education. Patient and/or family were informed about the Rapid Response Team and its purpose. Patient received Patient Rights Booklet, which includes Privacy Act Statement and Data Collection Information Summary.
[2019-12-15] MEDS ORDERED: METHOCARBAMOL 750 MG (ROBAXIN) TAB PO SCH (13:00)
[2019-12-15] MEDS ORDERED: MILK OF MAGNESIA 400 MG/5 ML 30 ML UDC PO PRN (13:00)
--- NOTE | 2019-12-15 13:13 | Occupational Therapy Eval ---
OT Evaluation-General/PLF Medical Diagnosis Admission Date Dec 15, 2019 at 12:30 Medical Diagnosis: L hip ORIF Onset Date: Dec 12, 2019 Therapy Diagnosis Therapy Diagnosis: Decreased ADL skills Precautions Precautions/Isolations: Standard Precautions Weight Bear Status Weight Bearing Restriction: Weight Bearing/Tolerated L hip (posterior precautions) Referral Physician: Jennifer Gage DO Referral Reason: Activity Tolerance, Self Care, Evaluation/Treatment, Strengthening/ROM Medical History Additional Medical History RA, fall hx, bipolar I, suicidal ideations at previous stay Current History Pt underwent L hip hemiarthroplasty 11/30/19 after fall, was d/c'd home. Pt fell 12/11 and admits from outside hospital to where reduction was attempted 12/12 and resulted in fx. ORIF and posterior hip precautions. Reviewed History: Yes Social History Home: Single Level Current Living Status: Alone Entry Into Home: Stairs Without Railing ADL-Prior Level of Function SCALE: Activities may be completed with or without assistive devices. 4-Zelzluiezg-zehzkyd completes the activity by him/herself with no assistance from a helper. 5-Set-up or Clean-up Assistance-helper sets up or cleans up; patient completes activity. [place] assists only prior to or following the activity. 4-Supervision or Touching Assistance-helper provides verbal cues and/or touching /steadying and/or contact guard assistance as patient completes activity. Assistance may be provided throughout the activity or intermittently. 3-Partial/Moderate Assistance-helper does LESS THAN HALF the effort. [place] lifts, holds or supports trunk or limbs, but provides less than half the effort. 2-Substantial/Maximal Assistance-helper does MORE THAN HALF the effort. [place] lifts or holds trunk or limbs and provides more than half the effort. 9-Qjjmnxfun-nlpefb does ALL the effort. Patient does none of the effort to complete the activity. Or, the assistance of 2 or more helpers is required for the patient to complete the activity. If activity was not attempted, code reason: 7-Patient Refused. 9-Not Applicable-not attempted and the patient did not perform the activity before the current illness, exacerbation or injury. 10-Not Attempted due to Environmental Limitations-(lack of equipment, weather restraints, etc.). 88-Not Attempted due to Medical Conditions or Safety Concerns. ADL PLOF Comments Pt states IND prior to fall Self Care: Independent Functional Cognition: Independent DME/Equipment: Tub/Shower DME/Equipment Comments no AE per pt. Standard toilet OT Current Status Subjective Pt evaluated post-PT eval. Pt seen EOB with PT present. Pt expresses pain during movement in LLE. Pt agreeable to OT eval/ treat. Mental Status/Objective Patient Orientation: Person, Place, Situation Current Hand Dominance: Right Upper Extremity ROM bilateral shoulders reach 90*, arthritis present in R shoulder Upper Extremity Coordination WFL BUE (increased time) Upper Extremity Sensation WFL BUE (no c/o paresthesias) Upper Extremity Strength Decreased bilaterally : 4-/5 ADL-Treatment Eating (QC): 5 (s/u- pt unable to open soda can, pt requires cues for probelm solving for tab positioning, assist required. Pt brings to mouth and drinks IND.) Oral Hygiene (QC): 4 (based on clinical judgement and eating QC, pt would require s/u and SBA seated at sink.) On/Off Footwear (QC): 2 (Pt able to don/ doff RLE sock. Pt does not attempt LLE due to precautions, based on precautions pt would require max A on LLE without AE. ) Other Treatments Pt seen EOB. Pt educated on OT role. Pt completes MMT/ ROM, severe crepitus noted in R shoulder. Pt expresses pain in R shoulder. Pt requests commode/ BM need. Pt sit to stand with walker with max A; is TD with transfer EOB to [facility]. Pt sits, states uncomfortable, states cannot have BM. Pt wiped with TD. Pt then TD from commode to EOB. Pt brings RLE up to don/ doff sock, unable to state p recautions. Precautions recited to pt. Pt expresses friend at home is no longer friend, states she has not been communicative during stay. Pt expresses no assist at home, previous stay at SNF (pt does not communicate reason). Pt requests commode once more, TD. Pt left with PT present on commode, pt states agreement to sponge bath. Education OT Patient Education: Correct positioning, Modified ADL techniques, Purpose of tx/functional activities, Transfer techniques Teaching Recipient: Patient Teaching Methods: Demonstration, Discussion Response to Teaching: Verbalize Understanding, Return Demonstration, Reinforcement Needed OT Short Term Goals Short Term Goals Time Frame: Dec 22, 2019 Eatin Oral hygiene: 5 Shower/bathe self: 3 OT Penitentiary Goals Penitentiary Goals Time Frame: Jan 05, 2020 Eating (QC): 6 Oral Hygiene (QC): 6 Toileting Hygiene (QC): 6 Shower/Bathe Self (QC): 6 Upper Body Dressing (QC): 6 Lower Body Dressing (QC): 6 On/Off Footwear (QC): 6 Additional Goals: 1-Demonstrate ADL Tasks, 2-Verbalize Understanding, 3- ImproveStrength/Connie 1=Demonstrate adherence to instructed precautions during ADL tasks. 2=Patient will verbalize/demonstrate understanding of assistive devices/modifications for ADL. 3=Patient will improve strength/tolerance for activity to enable patient to perform ADL's. OT Education/Plan Problem List/Assessment Assessment: Decreased Activ Tolerance, Decreased Safety Aware, Decreased UE Strength, Dependent Transfers, Impaired Bed Mobility, Impaired Cognition, Impaired Funct Balance, Impaired I ADL's, Impaired Self-Care Skills Discharge Recommendations Plan/Recommendations: Continue POC Therapy Discharge Recommendati: Scheduled Assistance, Meals on Wheels, Post Acute OT Equpiment Recommendations-D/C: Extended Bath Bench, Rails on Tub/Shower, Hip Kit, Walker Bag or Basket, Rails on Toilet, Toilet Riser Treatment Plan/Plan of Care Treatment,Training & Education: Yes Patient would benefit from OT for education, treatment and training to promote independence in ADL's, mobility, safety and/or upper extremity function for ADL's. Plan of Care: ADL Retraining, Functional Mobility, Group Exercise/Act as Ind, UE Funct Exercise/Act Treatment Duration: Jan 05, 2020 Frequency: At least 5 of 7 days/Wk (IRF) Estimated Hrs Per Day: 1.5 hours per day Agreement: Yes Rehab Potential: Guarded Time/GCodes Start Time: 12:45 Stop Time: 13:00 Total Time Billed (hr/min): 15 Billed Treatment Time DEQUAN Montalvo (15) GARRISON PAREDES OTR Dec 15, 2019 13:13
[2019-12-15 13:20] VITALS: BP 107/67
--- NOTE | 2019-12-15 13:24 | Physical Therapy Evaluation ---
PT Evaluation-General Medical Diagnosis Admission Date Dec 15, 2019 at 12:30 Medical Diagnosis: left hip fracture Onset Date: Dec 13, 2019 Therapy Diagnosis Therapy Diagnosis: generalized weakness and impaired mobility Precautions Precautions/Isolations: Fall Prevention, Standard Precautions Weight Bear Status Right Lower Extremity: Right Full Weight Bearing Left Lower Extremity: Left Weight Bearing/Tolerated Referral Physician: Merari Reason for Referral: Evaluation/Treatment Medical History Pertinent Medical History: Rheumatoid Arthritis Additional Medical History Initial admit to secondary to fall at home resulting in left hip fracture with repair (hemiarthroplasty) on 11/30/19. Admitted again for left hip dislocation and greater trochanter fracture with repair 12/13/19 (L THR) from a fall at [place]. Bipolar disorder, cervical cancer Current History Admit to ARU secondary to left THR Reviewed History: Yes Social History Home: Single Level Current Living Status: Alone Entry Into Home: Stairs Without Railing PT Steps Into Home: 2 Prior Prior Level of Function SCALE: Activities may be completed with or without assistive devices. 3-Aopsrsgatk-cnblexm completes the activity by him/herself with no assistance from a helper. 5-Set-up or Clean-up Assistance-helper sets up or cleans up; patient completes activity. [place] assists only prior to or following the activity. 4-Supervision or Touching Assistance-helper provides verbal cues and/or touching/steadying and/or contact guard assistance as patient completes activity. Assistance may be provided throughout the activity or intermittently. 3-Partial/Moderate Assistance-helper does LESS THAN HALF the effort. [place] lifts, holds or supports trunk or limbs, but provides less than half the effort. 2-Substantial/Maximal Assistance-helper does MORE THAN HALF the effort. [place] lifts or holds trunk or limbs and provides more than half the effort. 6-Vdyysvjyv-ulegnt does ALL the effort. Patient does none of the effort to complete the activity. Or, the assistance of 2 or more helpers is required for the patient to complete the activity. If activity was not attempted, code reason: 7-Patient Refused. 9-Not Applicable-not attempted and the patient did not perform the activity before the current illness, exacerbation or injury. 10-Not Attempted due to Environmental Limitations-(lack of equipment, weather restraints, etc.). 88-Not Attempted due to Medical Conditions or Safety Concerns. Bed Mobility: 6 Transfers (B,C,W/C): 6 Gait: 6 Stairs: 6 Indoor Mobility (Ambulation): Independent Stairs: Independent Prior Devices Use: None PT Evaluation-Current Subjective Patient reports fatigue and increase c/o pain left hip due to "rough" ride from to this hospital. Pain Numeric Pain Scale: 7 Location: Left Location Body Site: Hip Pain Description: Acute Objective Patient Orientation: Person, Time, Situation ROM/Strength ROM Lower Extremities left hip precautions/right LE WFL Strength Lower Extremities right LE 3/5 grossly/left LE 2/5 grossly Integumentary/Posture Integumentary refer to nursing notes Bowel Incontinence: Yes Bladder Incontinence: Freire Cath Posture slightly kyphotic/holds left LE in IR Neuromuscular (Tone, Coordination, Reflexes) currently diminished coordination due to fatigue Sensory Vision: Functional Hearing: Functional Sensation Right Lower Extremit: Intact Sensation Left Lower Extremity: Intact Transfers Roll Left to Right (QC): 1 Sit to Lying (QC): 1 Lying to Sitting/Side of Bed(Q: 1 Sit to Stand (QC): 1 Chair/Xhg-hn-Ismku Xfer(QC): 1 Toilet Transfer: 1 Car Transfer (QC): 88 Patient unable to perform car transfer due to severe debility and weakness. Patient is not safe to perform this task. Gait Does the Patient Walk?: No and Walking Goal IS indicated Mode of Locomotion: Both Anticipated Mode of Locomotion: Both Walk 10 feet (QC): 88 Walk 50 ft with 2 Turns(QC): 88 Walk 150 ft (QC): 88 Walking 10ft/uneven surface-QC: 88 Gait Assistive Device: FWW Comments/Gait Description Patient unable to advance either LE or weight shift to left LE to initiate gait sequence Wheelchair Training Does the Pt Use a Wheelchair?: Yes Distance: 10' Wheel 50 ft with 2 turns (QC): 88 Wheel 150 ft (QC): 88 Type of Wheelchair: Manual Stairs 1 Step (curb) (QC): 88 4 Steps (QC): 88 12 Steps (QC): 88 unable to perform standing with FWW or ambulate to perform this task Balance Sitting Static: Fair Sitting Dynamic: Fair Standing Static: Poor Standing Dynamic: Poor Picking up an Object (QC): 3 Treatment Pt sitting EOB, provided information for evaluation about PLOF and home set up. PT/OT cotreat due to decreased functional ability requiring the skill of 2 disciplines which a rehab spec could not perform. OT focused on UE placement, sequencing, and cues for safety while PT focused on LE placement and overall gross movement. Patient performed shower transfer by PT dependent assist with noted resistance and IR of left LE. 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 OT addressed ADL's during this time. Noted pt fatigued easily requiring rest breaks between tasks. Patient requires assist of 2 skilled professionals to ensure safe performance of all activity. Assessment/Needs 64 y.o. female, will benefit from skilled PT to address functional strength and mobility to improve current LOF to safely return to home or care facility at maximum LOF. Patient is severely limited with cognition/processing to perform gross motor tasks. Rehab Potential: Fair PT Short Term Goals Short Term Goals Time Frame: Dec 30, 2019 Roll Left & Right: 3 Sit to lyin Lying to sitting on side of be: 3 Sit to stand: 3 Chair/kbb-hn-qklek transfer: 3 Toilet transfer: 3 Car transfer: 3 Walk 10 feet: 3 Walk 50 feet with two turns: 3 Walk 150 feet: 3 Walking 10ft on uneven surface: 3 1 step (curb): 3 4 steps: 3 12 steps: 9 Picking up objects: 4 Does pt use a wc or scooter: Yes Wheel 50ft w/2 turns: 4 Wheel 150 feet: 4 Type: Manual PT Mcc Goals Chief Of Service Goals PT Chief Of Service Goals Time Frame: Jan 19, 2020 Roll Left & Right (QC): 5 Sit to Lying (QC): 5 Lying-Sitting on Side/Bed(QC): 5 Sit to Stand (QC): 5 Chair/Yrf-ib-Wonpl Xfer(QC): 5 Toilet Transfer (QC): 5 Car Transfer (QC): 5 Does the Patient Walk: Yes Walk 10 feet (QC): 5 Walk 50ft with 2 Turns (QC): 5 Walk 150 ft (QC): 5 Walking 10ft on Uneven Surface: 5 1 Step (curb) (QC): 5 4 Steps (QC): 5 12 Steps (QC): 9 Picking up an Object (QC): 5 PT Plan Problem List Problem List: Activity Tolerance, Functional Strength, Safety, Balance, Gait, Transfer, Bed Mobility, ROM Treatment/Plan Treatment Plan: Continue Plan of Care Treatment Plan: Bed Mobility, Concurrent Therapy, Education, Functional Activity Connie, Functional Strength, Group Therapy, Gait, Safety, Therapeutic Exercise, Transfers Treatment Duration: Jan 19, 2020 Frequency: At least 5 of 7 days/Wk (IRF) Estimated Hrs Per Day: 1.5 hours per day Patient and/or Family Agrees t: Yes Safety Risks/Education Patient Education: Transfer Techniques, W/C Management, Safety Issues Teaching Recipient: Patient Teaching Methods: Demonstration, Discussion Response to Teaching: Reinforcement Needed Discharge Recommendations Therapy Discharge Recommendati: Other, See Comments (care facility) Time/GCodes Time In: 1230 Time Out: 1415 Total Billed Treatment Time: 90 Total Billed Treatment 1 visit EVModC 15 min ([id number]) (OT eval [id number]) FA x 5 75 min (cotreat with OT [id number]) SUJIT GONZALES PT Dec 15, 2019 13:24
--- NOTE | 2019-12-15 13:41 | PM&R Post Admission Assessment ---
PM&R HP Date of Visit: Dec 15, 2019 Time of Visit: 13:30 History of Present Illness Chief complaint: Severe debility following left hip fracture 12/05/19 status post fall with dislocation and refracture requiring repeat procedure 12/12/19 History of present illness: This is a 64-year-old white female very chronically ill with multiple psych problems who presents from via wheelchair van in need of aggressive rehab in order to recover due to a left hip fracture that was repaired originally at 12/05/19 then DC to [place] at [facility] and sustained a fall at the half-way resulted in a dislocation and subsequent refracture so she required another repair at on 12/12/2019. Patient is Yazidism and refuses blood transfusions and it was noted that she has severe anemia so midline was placed and patient was started on Venofer iron infusion. If needed may need to do hematology consultation. She is severely chronically ill and cachectic from anorexia nervosa restrictive type. Her bipolar seems to be significantly affecting her life on a chronic basis which may require significant creativity in order to help her recover here at inpatient rehab. Patient appears to have some confusion with memory loss and could not tell me who her family doctor is. I did review her records in depth and assess Dr. Kim Patel as her primary care provider. She also sees a therapist. 2 hours after admission she was moved closer to the desk to [facility] due to confusion. She is a significant fall risk. Noted white count of 16,000 and tachycardia of 120 so I started IV fluids and will therefore check a pro calcitonin and lactic acid to be sure she is not septic. She appears to be very chronically ill and significantly weak. Past Qbcxigv-Xsqytp-Ymjyqq Hx Past Med/Social Hx: Reviewed Nursing Past Med/Soc Hx, Reviewed and Corrections made Patient Social History Marrital Status: (1992 ) Employed/Student: retired Alcohol Use: Denies Use Alcohol Beverage of Choice: Wine Smoking Status: Former Smoker 2nd Hand Smoke Exposure: No Recent Foreign Travel: No Contact w/other who traveled: No Recent Hopitalizations: Yes (L hip surgery discharged 7 days ago) Recent Infectious Disease Expo: No Seasonal Allergies Seasonal Allergies: No Past Medical History Surgeries: Gallbladder, Hysterectomy, Orthopedic Gastrointestinal: Chronic Constipation, Gall Bladder Disease Musculoskeletal: Fractures Cancer: Cervical Did You Recieve Any Treatments: Yes What Type of Treatment Did You: Surgical Intervention Psychosocial: Eating Disorder, Anxiety, Bipolar, Depression History of Blood Disorders: No Self Care: Independent Functional Cognition: Independent Eatin (s/u- pt unable to open soda can, pt requires cues for probelm solving for tab positioning, assist required. Pt brings to mouth and drinks IND.) Oral Hygiene: 4 (based on clinical judgement and eating QC, pt would require s/u and SBA seated at sink.) On/Off Footwear: 2 (Pt able to don/ doff RLE sock. Pt does not attempt LLE due to precautions, based on precautions pt would require max A on LLE without AE. ) PM&R Allergy/Meds/Data Review Allergies Coded Allergies: prochlorperazine (Verified Allergy, Unknown, 11/29/19) Home Medications Scheduled Aspirin (Aspirin), 81 MG PO BID WITH MEALS, (Reported) Estradiol (Climara Patch Weekly 0.05mg/hr), 1 EACH TD Weekly, (Reported) Ferrous Gluconate (Ferrous Gluconate), 324 MG PO DAILY W/ BREAKFAST, (Reported) Folic Acid (Folic Acid), 1 MG PO DAILY, (Reported) Lamotrigine (Lamictal), 300 MG PO DAILY, (Reported) Methocarbamol (Methocarbamol), 750 MG PO TID, (Reported) Methotrexate Sodium (Methotrexate), 15 MG PO WEEK, (Reported) Polyethylene Glycol 3350 (Miralax), 17 GM PO DAILY, (Reported) Prednisone (Prednisone), 7.5 MG PO DAILY W/ BREAKFAST, (Reported) Sennosides/Docusate Sodium (Senna S Tablet), 1 EACH PO BID, (Reported) Scheduled PRN Acetaminophen (Tylenol), 650 MG PO Q4H PRN for PAIN-MILD (1-4), (Reported) Bisacodyl (Bisacodyl), 10 MG RC DAILY PRN for CONSTIPATION-4TH LINE, (Reported) Magnesium Hydroxide (Milk of Magnesia), 10 MG PO DAILY PRN for CONSTIPATION-7TH LINE, (Reported) Oxycodone HCl (Roxicodone), 5-10 MG PO Q4H PRN for PAIN-SEVERE (8-10), (Reported) Current Medications Current Medications Reviewed Review of Systems Constitutional: see HPI, dizziness, malaise, weakness EENTM: no symptoms reported Respiratory: no symptoms reported Cardiovascular: no symptoms reported Gastrointestinal: constipation Genitourinary: other (retention) Musculoskeletal: joint pain (left hip) Skin: no symptoms reported Psychiatric/Neurological: Anxiety, Depressed, Emotional Problems All Other Systems Reviewed Negative Unless Noted: Yes Physical Exam Physical Exam Vital Signs Vital Signs - First Documented 12/15/19 13:20 Temp 37.0 Pulse 120 Resp 16 B/P (MAP) 107/67 Pulse Ox 95 O2 Delivery Room Air Capillary Refill : Height, Weight, BMI Height: '" Weight: lbs. oz. kg; 19.22 BMI Method: General Appearance: Anxious, Chronically ill, Cachetic, Mild Distress, Other (fernandez, pale, frail) Eyes: Bilateral Eye Normal Inspection, Bilateral Eye PERRL HEENT: PERRL/EOMI, Normal ENT Inspection, Pharynx Normal Neck: Full Range of Motion, Normal Inspection, Non Tender, Supple, Carotid Br uit Respiratory: Chest Non Tender, Lungs Clear, Normal Breath Sounds, No Accessory Muscle Use, No Respiratory Distress Cardiovascular: Regular Rate, Rhythm, No Edema, No Gallop, No JVD, No Murmur, Normal Peripheral Pulses, Tachycardia Gastrointestinal: Normal Bowel Sounds, No Organomegaly, No Pulsatile Mass, Non Tender, Soft Back: Normal Inspection, No CVA Tenderness, No Vertebral Tenderness Extremity: Normal Capillary Refill, Normal Inspection, Normal Range of Motion, Non Tender, No Calf Tenderness, No Pedal Edema Neurologic/Psychiatric: Alert, Oriented x3, No Motor/Sensory Deficits, Normal Mood/Affect, sales marketing director II-XII Norm as Tested, Abnormal Gait, Disoriented (subtle poor recall) Skin: Normal Color, Warm/Dry Lymphatic: No Adenopathy PM&R Medical Assessment & Plan REHAB/MEDICAL ASSESSMENT AND PLAN: REHAB IMPAIRMENT GROUP: Left hip fracture with severe acute on chronic debility ETIOLOGIC DIAGNOSIS: Left hip fracture with severe acute on chronic debility The comorbidities that impact the patients function and/or functional outcome by: anorexia nervosa, severe cachexia, delirium, dehydration on arrival, urinary retention, severe anemia, JW refusal of blood products, severe bipolar disorder REHAB PLAN: The patient is being admitted to our comprehensive inpatient rehabilitation facility and can tolerate the intensity of service consisting of at least: 180 minutes of therapy a day, 5 out of 7 days a week Rehab treatment will consist of: PT OT will focus on increasing stamina and endurance and build strength and ambulatory abilities The patient/family has a good understanding of our discharge process and will benefit from an interdisciplinary inpatient rehabilitation program. The patient has potential to make improvement and is in need of at least two of the following multidisciplinary therapies including but not limited to physical, occupational, speech, and prosthetics and orthotics. Additionally the patient will need services from respiratory, nutritional services, wound care, psychology, etc. (Customize this to each patient). Given the patients complex condition and risk of further medical complications, rehabilitation services cannot be safely or effectively provided at a lower level of care such as a halfway facility. BARRIERS TO DISCHARGE: Severe malnutrition due to anorexia nervosa and mental illness ESTIMATED LOS: 7 days DISPOSITION: Home RELEVANT CHANGES SINCE PREADMISSION SCREENING: I have compared the patients medical and functional status at the time of the preadmission screening and there are: no changes PROGNOSIS: Guarded REHABILITATION GOALS: 1. PT OT will focus on increasing stamina and endurance and build strength and ambulatory abilities All the above goals were reviewed with the patient and he/she is in agreement. By signing this document, I acknowledge that I have personally performed a full physical examination on this patient within 24 hours of admission to this inpatient rehabilitation facility and have determined the patient to be able to tolerate the above course of treatment at an intensive level for a reasonable period of time. I will be completing a detailed individualized Plan of Care for this patient by day #4 of the patients stay based upon the Preadmission Screen, the Post-Admission Evaluation, and the therapy evaluations. Admission Dx/Comorbidities: (1) Hip fracture, left ICD Codes: S72.002A - Fracture of unspecified part of neck of left femur, initial encounter for closed fracture (2) Refusal of blood transfusions as patient is Yazidism ICD Codes: Z53.1 - Procedure and treatment not carried out because of patient's decision for reasons of belief and group pressure (3) Anemia ICD Codes: D64.9 - Anemia, unspecified (4) Iron deficiency ICD Codes: E61.1 - Iron deficiency (5) Bipolar 1 disorder, mixed ICD Codes: F31.60 - Bipolar disorder, current episode mixed, unspecified (6) Anorexia nervosa, restricting type ICD Codes: F50.01 - Anorexia nervosa, restricting type (7) Malnutrition ICD Codes: E46 - Unspecified protein-calorie malnutrition (8) Urinary retention ICD Codes: R33.9 - Retention of urine, unspecified (9) Hayden catheter in place ICD Codes: Z96.0 - Presence of urogenital implants (10) Constipation ICD Codes: K59.00 - Constipation, unspecified (11) Dehydration ICD Codes: E86.0 - Dehydration (12) Tachycardia ICD Codes: R00.0 - Tachycardia, unspecified (13) Falls frequently ICD Codes: R29.6 - Repeated falls (14) Cachexia ICD Codes: R64 - Cachexia (15) Rheumatoid arthritis ICD Codes: M06.9 - Rheumatoid arthritis, unspecified (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 (17) Immunosuppressed status ICD Codes: D89.9 - Disorder involving the immune mechanism, unspecified (18) History of cervical cancer ICD Codes: Z85.41 - Personal history of malignant neoplasm of cervix uteri (19) DVT prophylaxis ICD Codes: Z29.9 - Encounter for prophylactic measures, unspecified Assessment/Plan Assessment and Plan Assess & Plan/Chief Complaint Assessment: s/p left hip fracture 12/05/19 then s/p fall with dislocation and fracture during attempted reduction in [facility] ER requiring repeat repair 12/12/19 [facility] Severe bipolar mental illness Anorexia Nervosa restricting type Severe malnutrition Urinary retention requiring hayden cath consulted Urology Anemia severe iron deficient type starting Venofer after midline placed JW refuses blood products with severe anemia RA hx of cervical cancer Prednisone dependency Immunosuppressed Delirium Tachycardia Hemorrhoids Plan: IVF since she appears dehydrated and tachycardic Check labs Pain meds Anusol prn Urology consultation BM regimen Monitor closely especially confusion DENI JUAREZ DO Dec 15, 2019 13:41
[2019-12-15] MEDS ORDERED: polyethylene glycoL POWDER 17 GM (MIRALAX) PACK PO NR (13:45)
[2019-12-15 14:00] LABS: BASOPHILS % (AUTO) 0 % (0-10); EOSINOPHILS # (AUTO) 0.1 10^3/uL (0.0-0.3); EOSINOPHILS % (AUTO) 0 % (0-10); HEMATOCRIT 26 % (35-52); HEMOGLOBIN 8.2 G/DL (11.5-16.0); LYMPHOCYTES # (AUTO) 0.5 X 10^3 (1.0-4.0); LYMPHOCYTES % (AUTO) 3 % (12-44); MEAN CORPUSCULAR HEMOGLOBIN 31 PG (25-34); MEAN CORPUSCULAR HGB CONC 31 G/DL (32-36); MEAN CORPUSCULAR VOLUME 100 FL (80-99); MEAN PLATELET VOLUME 8.1 FL (7.4-10.4); MONOCYTES # (AUTO) 0.8 X 10^3 (0.0-1.0); MONOCYTES % (AUTO) 5 % (0-12); NEUTROPHILS # (AUTO) 15.3 X 10^3 (1.8-7.8); NEUTROPHILS % (AUTO) 92 % (42-75); PLATELET COUNT 791 10^3/uL (130-400); RED CELL DISTRIBUTION WIDTH 16.1 % (10.0-14.5); WHITE BLOOD COUNT 16.8 10^3/uL (4.3-11.0)
[2019-12-15] MEDS ORDERED: ENOXAPARIN 40 MG/0.4 ML (LOVENOX) SYR SC SCH (14:00)
--- NOTE | 2019-12-15 14:17 | Occupational Ther Daily Note ---
OT Current Status-Daily Note Subjective Pt alert, sitting on EOB. Pt fatigued and processing information slowly. Mental Status/Objective Patient Orientation: Person, Place, Time, Situation Attachments: Freire Catheter ADL-Treatment Co-treat with PT, skills of 2 clinicians to complete all tasks due to need of skilled instruction, decreased mobility and increased fatigue which hinders ability to complete functional tasks safely. PT working on functional transfers, B LE strengthening, sit to stand. OT working on ADL's, positioning B UE's during transfers and UE strengthening. Assist x2 for functional transfers. Assist x2 for lower body dressing, one person to stand and one person to hike pants. Assist x2 for toileting hygiene and clothing manipulation. Assist x2 for shower transfers. Sitting on shower seat, pt completed bathing with max verbal cues, assist with buttocks and lower legs/feet. Pt dons/doffs shirt by self after set up. Sitting at sink, pt required set up then completed oral care. After session, pt lying in bed with call light/phone in reach. All needs met in room. Therapy Code Descriptions/Definitions Functional Todd Measure: 0=Not Assessed/NA 4=Minimal Assistance 1=Total Assistance 5=Supervision or Setup 2=Maximal Assistance 6=Modified Todd 3=Moderate Assistance 7=Complete IndependenceSCALE: Activities may be completed with or without assistive devices. 1-Wehmwkimjq-oestied completes the activity by him/herself with no assistance from a helper. 5-Set-up or Clean-up Assistance-helper sets up or cleans up; patient completes activity. Troy assists only prior to or following the activity. 4-Supervision or Touching Assistance-helper provides verbal cues and/or touching/steadying and/or contact guard assistance as patient completes activity. Assistance may be provided throughout the activity or intermittently. 3-Partial/Moderate Assistance-helper does LESS THAN HALF the effort. Troy lifts, holds or supports trunk or limbs, but provides less than half the effort. 2-Substantial/Maximal Assistance-helper does MORE THAN HALF the effort. Troy lifts or holds trunk or limbs and provides more than half the effort. 1-Ryrmlctqf-kiwfsu does ALL the effort. Patient does none of the effort to complete the activity. Or, the assistance of 2 or more helpers is required for the patient to complete the activity. If activity was not attempted, code reason: 7-Patient Refused. 9-Not Applicable-not attempted and the patient did not perform the activity before the current illness, exacerbation or injury. 10-Not Attempted due to Environmental Limitations-(lack of equipment, weather restraints, etc.). 88-Not Attempted due to Medical Conditions or Safety Concerns. Oral Hygiene (QC): 5 Bathing Location: L Arm, R Arm, L Upper Leg, R Upper Leg, Chest, Abdomen, Perineal Area Shower/Bathe Self (QC): 2 Upper Body Dressing (QC): 5 Lower Body Dressing (QC): 1 On/Off Footwear: 2 Toileting Hygiene (QC): 1 Toilet Transfer (QC): 1 OT Short Term Goals Short Term Goals Time Frame: Dec 22, 2019 Eatin Oral hygiene: 5 Shower/bathe self: 3 OT Longterm Goals Longterm Goals Time Frame: Jan 05, 2020 Eating (QC): 6 Oral Hygiene (QC): 6 Toileting Hygiene (QC): 6 Shower/Bathe Self (QC): 6 Upper Body Dressing (QC): 6 Lower Body Dressing (QC): 6 On/Off Footwear (QC): 6 Additional Goals: 1-Demonstrate ADL Tasks, 2-Verbalize Understanding, 3- ImproveStrength/Connie 1=Demonstrate adherence to instructed precautions during ADL tasks. 2=Patient will verbalize/demonstrate understanding of assistive devices/modifications for ADL. 3=Patient will improve strength/tolerance for activity to enable patient to perform ADL's. OT Education/Plan Problem List/Assessment Assessment: Decreased Activ Tolerance, Decreased Safety Aware, Decreased UE Strength, Dependent Transfers, Impaired Bed Mobility, Impaired Cognition, Impaired Coordination, Impaired Funct Balance, Impaired I ADL's, Impaired Self- Care Skills, Restricted Funct UE ROM Discharge Recommendations Plan/Recommendations: Continue POC Treatment Plan/Plan of Care Patient would benefit from OT for education, treatment and training to promote independence in ADL's, mobility, safety and/or upper extremity function for ADL's. Plan of Care: ADL Retraining, Functional Mobility, Group Exercise/Act as Ind, UE Funct Exercise/Act Treatment Duration: Jan 05, 2020 Frequency: At least 5 of 7 days/Wk (IRF) Estimated Hrs Per Day: 1.5 hours per day Agreement: Yes Rehab Potential: Guarded Time/GCodes Start Time: 13:00 Stop Time: 14:15 Total Time Billed (hr/min): 75 Billed Treatment Time 1 visit-ADL 5 (75 min) co-treat [id number] BENITO ROWAN Dec 15, 2019 14:17
[2019-12-15 14:24] LABS: ALANINE AMINOTRANSFERASE 37 U/L (0-55); ALKALINE PHOSPHATASE 109 U/L (40-136); BILIRUBIN,TOTAL 0.4 MG/DL (0.1-1.0); BUN/CREATININE RATIO 15; CALCIUM 8.2 MG/DL (8.5-10.1); CARBON DIOXIDE 21 MMOL/L (21-32); CHLORIDE 101 MMOL/L (98-107); CREATININE SERUM 0.72 MG/DL (0.60-1.30); GFR ESTIMATED > 60; GLUCOSE 128 MG/DL (70-105); POTASSIUM 4.2 MMOL/L (3.6-5.0); SODIUM 135 MMOL/L (135-145); TOTAL PROTEIN 5.8 GM/DL (6.4-8.2)
[2019-12-15] MEDS: SENNA W/DOCUSATE (SENOKOT S) TABLET PO SCH ×2 (14:55→21:52)
[2019-12-15] MEDS: LACTULOSE SYRUP 10GM/15ML (ENULOSE) 30ML UDC PO SCH ×2 (14:55→21:52)
[2019-12-15] MEDS: NS IV 1000 ML 1,000 ML IV SCH (15:07)
[2019-12-15] MEDS: IRON SUCROSE 200 MG/10 ML (VENOFER) VIAL IV SCH (15:08)
[2019-12-15] MEDS: METHOCARBAMOL 750 MG (ROBAXIN) TAB PO SCH ×2 (15:08→21:53)
[2019-12-15 16:00] VITALS: BP 103/67
--- NOTE | 2019-12-15 16:14 | ST Cognitive Linguistic Eval ---
Speech Evaluation-General Medical Diagnosis left hip fracture Onset Date: Dec 13, 2019 Therapy Diagnosis Therapy Diagnosis: Cognitive-communication Referral Referring Physician: Dr. Gage Medical History Pertinent Medical History: Rheumatoid Arthritis Reviewed History: Yes Social History Current Living Status: Alone Speech PLF-Current Status Prior Level of Function Patient lived alone where she was independent for her daily needs. Subjective Patient was cooperative with the cognitive assessment. Language Eval: Auditory Comprehends Simple Yes/No Ques: Functional Indent/Objects Multiple Go: Functional Ident/Pics in Multiple Go: Functional Follows 1-Step Commands: Functional Follows Complex Directions: Functional Follows General Conversations: Mild Language Eval: Verbal Language Completes Spontaneous Greeting: Functional Produces Auto, Serial Info: Functional Imitates Simple Words/Phrases: Functional Word Finding: Functional Requests Basic Needs: Functional States Basic Personal Info: Functional Expresses Complex Ideas: Mild Objective Cognitive Domain Attention: WNL Memory: Mild Problem Solving: Mild Executive Functions: Mild Visuospatial Skills: WNL Composite Severity Rating: Mild Clock Drawing Severity Rating: Mild Objective Formal/Standardized Tests [facility] Mental Status ([facility]) Results 18/30, moderate dementia range of function Oral Motor/Speech Production Within Normal Limits Impression Patient is a 64 year old female who was admitted to the ARU s/p hip fracture. The patient was given the UMS at bedside with a score of 18/30. This score f alls in the moderate dementia level of function. The patient will receive skilled ST services for improving her cognitive function so that she can return home safely. Speech Patient Assess Expression of Ideas/Wants: Exhibits (3) Understanding Verbal Content: Sometimes Understands(2) Brief Interview-Mental Status: Yes Repetition of Three Words: Three (3) Temporal Orientation: Year: Correct (3) Temporal Orientation: Month: Accurate within 5 days(2) Temporal Orientation: Day: Correct (1) Recall : Wear to say "Sock": Yes,after cueing (1) Recall : Color: No, could not recall (0) Recall : Bed: No, could not recall (0) Memory/Recall Ability: Current season, That he or she is in a hsp/hsp unit Speech Short Term Goals Short Term Goals Short Term Goals 1) The patient will complete memory tasks related to her daily needs at 90% or greater with minimal cues. 2) The patient will complete safety awareness tasks related to her daily needs at 90% or greater with minimal cues. 3) The patient will complete problem solving tasks related to her daily needs at 90% or greater with minimal cues. Speech Group Home Goals Museum Security Chief Goals Patient will improve cognitive-communication necessary for safety and daily living tasks with minimal assist. Speech-Plan Patient/Family Goals Patient/Family Goals: Patient plans on returning home post rehab. Treatment Plan Speech Therapy Treatment Plan: Continue Plan of Care Frequency: 5 times per week Estimated Hrs Per Day: .5 hour per day Rehab Potential: Fair Barriers to Learning: Patient has moderate dementia range of function Safety Risks/Education Teaching Recipient: Patient Teaching Methods: Discussion Response to Teaching: Verbalize Understanding Education Topics Provided: Safety within her room and communication of her wants/needs Time Speech Therapy Time In: 16:00 Speech Therapy Time Out: 16:15 Total Billed Time: 15 Billed Treatment Time 1, RUSSELL Figueredo Dec 15, 2019 16:14
[2019-12-15] MEDS: HYDROCORTISONE 2.5% CREAM (ANUSOL-HC) 30 GM TOP SCH ×2 (17:31→21:52)
[2019-12-15] MEDS: ASPIRIN 81 MG CHEW (CHILDREN'S ASA) PO SCH (18:06)
[2019-12-15] MEDS: TAMSULOSIN 0.4 MG (FLOMAX) CAP PO SCH (18:06)
[2019-12-15] MEDS: BETHANECHOL 25 MG (URECHOLINE) TAB PO SCH ×2 (18:07→21:53)
[2019-12-15 18:26] LABS: BILIRUBIN,URINE NEGATIVE (NEGATIVE); CLARITY,URINE CLEAR; COLOR,URINE YELLOW; GLUCOSE, URINE (UA) NEGATIVE (NEGATIVE); KETONES,URINE NEGATIVE (NEGATIVE); LEUKOCYTE ESTERASE ,URINE TRACE (NEGATIVE); NITRITE,URINE NEGATIVE (NEGATIVE); PH,URINE 7.5 (5-9); PROTEIN,URINE NEGATIVE (NEGATIVE)
[2019-12-15] MEDS ORDERED: risperiDONE 0.25 MG (RisperDAL) TAB PO NR (18:45)
[2019-12-15] MEDS ORDERED: HALOPERIDOL 5 MG/ML (HALDOL) AMP IM PRN (18:45)
[2019-12-15] MEDS ORDERED: HALOPERIDOL 0.5 MG (HALDOL) TAB PO PRN (18:45)
[2019-12-15 18:58] LABS: BACTERIA,URINE FEW /HPF
[2019-12-15 18:59] LABS: AMORPHOUS SEDIMENT,UR FEW AMOR PHOSPHATE /LPF
[2019-12-15] MEDS: cefTRIAXone FOR IV USE 1,000 MG in WATER (STERILE) FOR INJECTION 10 ML IV SCH (19:19)
--- NOTE | 2019-12-15 19:29 | NUR ---
bedside report received from CARLOS BRANTLEY, assume care of pt
--- NOTE | 2019-12-15 19:46 | NUR ---
pt resting quietly in bed, pain level 0/10 on CNPI scale
--- NOTE | 2019-12-15 19:55 | NUR ---
tele sitter obtained from dairy processing supervisor, call to video monitoring given history & admission data, pt sleeping will instruct pt on tele sitter when pt awake
[2019-12-15] MEDS ORDERED: polyethylene glycoL POWDER 17 GM (MIRALAX) PACK PO SCH (21:00)
[2019-12-15] MEDS ORDERED: SENNA W/DOCUSATE (SENOKOT S) TABLET PO SCH ×2 (21:00)
[2019-12-15] MEDS: DOCUSATE SODIUM 100 MG (COLACE) CAP PO SCH (21:52)
[2019-12-15] MEDS: risperiDONE 0.25 MG (RisperDAL) TAB PO SCH (21:52)
[2019-12-15] MEDS: VALACYCLOVIR 500 MG TAB (VALTREX) PO SCH (21:53)
--- NOTE | 2019-12-15 21:53 | NUR ---
Colace, Enulose & Senokot held due to loose stools, reperidal 0.25mg held because given at 1926
--- NOTE | 2019-12-15 23:46 | NUR ---
c/o lt hip pain pain level 10/10 on numeric scale, oxyir 10mg given
--- NOTE | 2019-12-16 00:30 | NUR ---
states you did not give me any pain medicine, advised yes i did oxyir 10mg at 2346, rates pain at 7/10 on numeric scale, ice pack to lt hip
[2019-12-16] MEDS: ALPRAZolam 0.25 MG (XANAX) TAB PO PRN (01:22)
--- NOTE | 2019-12-16 01:22 | NUR ---
pt anxious, wanting to call friend, elderly gentleman to sit with her advised too late for elderly person to be out & he could not get into visit right now, Xanax 0.25mg po given
--- NOTE | 2019-12-16 04:10 | NUR ---
c/o lt hip pain level 5/10 on numeric scale, oxyir 10mg given
[2019-12-16] MEDS: NS IV 1000 ML 1,000 ML IV SCH ×2 (04:15→17:39)
--- NOTE | 2019-12-16 04:58 | NUR ---
resting quietly in bed, pain level 0/10 on CNPI scale
[2019-12-16 05:54] VITALS: BP 103/68
[2019-12-16] MEDS: ASPIRIN 81 MG CHEW (CHILDREN'S ASA) PO SCH ×2 (06:46→16:17)
[2019-12-16] MEDS: BETHANECHOL 25 MG (URECHOLINE) TAB PO SCH ×4 (06:46→21:30)
[2019-12-16] MEDS ORDERED: FERROUS SULF 325 MG (IRON) TAB PO SCH (08:00)
[2019-12-16 08:36] LABS: BASOPHILS # (AUTO) 0.1 10^3/uL (0.0-0.1); BASOPHILS % (AUTO) 1 % (0-10); EOSINOPHILS # (AUTO) 0.3 10^3/uL (0.0-0.3); EOSINOPHILS % (AUTO) 3 % (0-10); HEMATOCRIT 22 % (35-52); HEMOGLOBIN 7.1 G/DL (11.5-16.0); LYMPHOCYTES # (AUTO) 1.3 X 10^3 (1.0-4.0); LYMPHOCYTES % (AUTO) 12 % (12-44); MEAN CORPUSCULAR HEMOGLOBIN 32 PG (25-34); MEAN CORPUSCULAR HGB CONC 32 G/DL (32-36); MEAN CORPUSCULAR VOLUME 100 FL (80-99); MEAN PLATELET VOLUME 7.7 FL (7.4-10.4); MONOCYTES # (AUTO) 0.9 X 10^3 (0.0-1.0); MONOCYTES % (AUTO) 9 % (0-12); NEUTROPHILS # (AUTO) 7.9 X 10^3 (1.8-7.8); NEUTROPHILS % (AUTO) 76 % (42-75); PLATELET COUNT 692 10^3/uL (130-400); RED CELL DISTRIBUTION WIDTH 16.4 % (10.0-14.5); WHITE BLOOD COUNT 10.5 10^3/uL (4.3-11.0)
[2019-12-16] MEDS: predniSONE 5 MG TAB PO SCH (08:36)
[2019-12-16] MEDS: risperiDONE 0.25 MG (RisperDAL) TAB PO SCH ×2 (08:37→21:30)
[2019-12-16] MEDS: METHOCARBAMOL 750 MG (ROBAXIN) TAB PO SCH ×3 (08:37→21:30)
[2019-12-16] MEDS: FOLIC ACID 1 MG TAB PO SCH (08:37)
[2019-12-16] MEDS: DOCUSATE SODIUM 100 MG (COLACE) CAP PO SCH ×2 (08:39→21:41)
[2019-12-16] MEDS: LACTULOSE SYRUP 10GM/15ML (ENULOSE) 30ML UDC PO SCH ×2 (08:39→21:41)
[2019-12-16] MEDS: polyethylene glycoL POWDER 17 GM (MIRALAX) PACK PO SCH (08:39)
[2019-12-16] MEDS: SENNA W/DOCUSATE (SENOKOT S) TABLET PO SCH ×2 (08:40→21:42)
[2019-12-16] MEDS: VALACYCLOVIR 500 MG TAB (VALTREX) PO SCH ×3 (08:49→21:30)
[2019-12-16] MEDS: HYDROCORTISONE 2.5% CREAM (ANUSOL-HC) 30 GM TOP SCH ×2 (09:00→21:41)
[2019-12-16] MEDS ORDERED: LAMOTRIGINE 300 MG PO SCH (09:00)
[2019-12-16 09:12] LABS: ALANINE AMINOTRANSFERASE 30 U/L (0-55); ALBUMIN 2.5 GM/DL (3.2-4.5); ALKALINE PHOSPHATASE 93 U/L (40-136); BILIRUBIN,TOTAL 0.3 MG/DL (0.1-1.0); BUN/CREATININE RATIO 15; CALCIUM 7.9 MG/DL (8.5-10.1); CARBON DIOXIDE 22 MMOL/L (21-32); CHLORIDE 101 MMOL/L (98-107); CREATININE SERUM 0.61 MG/DL (0.60-1.30); GFR ESTIMATED > 60; GLUCOSE 80 MG/DL (70-105); SODIUM 133 MMOL/L (135-145); TOTAL PROTEIN 4.7 GM/DL (6.4-8.2)
--- NOTE | 2019-12-16 11:52 | PM&R Progress Note ---
Subjective HPI/CC On Admission Date Seen by Provider: Dec 16, 2019 Time Seen by Provider: 11:45 Subjective/Events-last exam Patient remains stable since IVF and Rocephin initiated yesterday Awaiting therapy today Patient not as delusional as yesterday since I started Risperdal low dose BID Pain is pretty usual for hip fracture Reviewed labs and meds Flat affected noted Consulting Dr Russell due to severe anemia and JW and other factors impacting blood production Malnutrition noted confirmed with low prealbumin Conferred with RN Reviewed therapy notes Checked meds and labs Review of Systems General: Fatigue Musculoskeletal: leg pain Neurological: Weakness, Incoordination, Confusion Focused Exam Lactate Level 12/15/19 17:10: Lactic Acid Level 0.96 Objective Exam Vital Signs Vital Signs Date Time Temp Pulse Resp B/P (MAP) Pulse Ox O2 Delivery O2 Flow Rate FiO2 12/16/19 17:34 35.6 109 18 118/70 (86) 97 Room Air Capillary Refill : Less Than 3 SecondsLess Than 3 Seconds General Appearance: No Apparent Distress, Anxious, Chronically ill, Cachetic, Other (fernandez, pale, frail) HEENT: PERRL/EOMI, Normal ENT Inspection, Pharynx Normal Neck: Full Range of Motion, Normal Inspection, Non Tender, Supple, Carotid Bruit Respiratory: Chest Non Tender, Lungs Clear, Normal Breath Sounds, No Accessory Muscle Use, No Respiratory Distress Cardiovascular: Regular Rate, Rhythm, No Edema, No Gallop, No JVD, No Murmur, Normal Peripheral Pulses, Tachycardia Gastrointestinal: Normal Bowel Sounds, No Organomegaly, No Pulsatile Mass, Non Tender, Soft Back: Normal Inspection, No CVA Tenderness, No Vertebral Tenderness Extremity: Normal Capillary Refill, Normal Inspection, Normal Range of Motion, Non Tender, No Calf Tenderness, No Pedal Edema Neurologic/Psychiatric: Alert, Oriented x3, No Motor/Sensory Deficits, Normal Mood/Affect, process mold technician II-XII Norm as Tested, Abnormal Gait, Disoriented (subtle poor recall) Skin: Normal Color, Warm/Dry Lymphatic: No Adenopathy Results/Procedures Lab Laboratory Tests 12/16/19 07:20 12/16/19 08:20 Patient resulted labs reviewed. FIM Transfers Therapy Code Descriptions/Definitions Functional [place] Measure: 0=Not Assessed/NA 4=Minimal Assistance 1=Total Assistance 5=Supervision or Setup 2=Maximal Assistance 6=Modified [place] 3=Moderate Assistance 7=Complete IndependenceSCALE: Activities may be completed with or without assistive devices. 5-Bbstosbwnx-tnysebk completes the activity by him/herself with no assistance from a helper. 5-Set-up or Clean-up Assistance-helper sets up or cleans up; patient completes activity. [place] assists only prior to or following the activity. 4-Supervision or Touching Assistance-helper provides verbal cues and/or touching/steadying and/or contact guard assistance as patient completes activity. Assistance may be provided throughout the activity or intermittently. 3-Partial/Moderate Assistance-helper does LESS THAN HALF the effort. [place] lifts, holds or supports trunk or limbs, but provides less than half the effort. 2-Substantial/Maximal Assistance-helper does MORE THAN HALF the effort. [place] lifts or holds trunk or limbs and provides more than half the effort. 1-Yuuferyxh-uezzdn does ALL the effort. Patient does none of the effort to complete the activity. Or, the assistance of 2 or more helpers is required for the patient to complete the activity. If activity was not attempted, code reason: 7-Patient Refused. 9-Not Applicable-not attempted and the patient did not perform the activity before the current illness, exacerbation or injury. 10-Not Attempted due to Environmental Limitations-(lack of equipment, weather restraints, etc.). 88-Not Attempted due to Medical Conditions or Safety Concerns. Roll Left to Right (QC): 1 Sit to Lying (QC): 1 Sit to Stand (QC): 1 Chair/Wud-ig-Ikylc Xfer(QC): 1 Car Transfer (QC): 88 Gait Training Does the Patient Walk?: No and Walking Goal IS indicated Walk 10 feet (QC): 88 Walk 50 ft with 2 Turns(QC): 88 Walk 150 ft (QC): 88 Walking 10ft/uneven surface-QC: 88 Gait Assistive Device: FWW Wheelchair Training Does the Pt Use a Wheelchair?: Yes Distance: 10' Wheel 50 ft with 2 turns (QC): 88 Wheel 150 ft (QC): 88 Type of Wheelchair: Manual Stair Training 1 Step (curb) (QC): 88 4 Steps (QC): 88 12 Steps (QC): 88 Balance Picking up an Object (QC): 3 ADL-Treatment Eating (QC): 5 (s/u- pt unable to open soda can, pt requires cues for probelm solving for tab positioning, assist required. Pt brings to mouth and drinks IND.) Oral Hygiene (QC): 5 Bathing Location: L Arm, R Arm, L Upper Leg, R Upper Leg, Chest, Abdomen, Perineal Area Shower/Bathe Self (QC): 2 Upper Body Dressing (QC): 5 Lower Body Dressing (QC): 1 On/Off Footwear (QC): 2 Toileting Hygiene (QC): 1 Toilet Transfer (QC): 1 Assessment/Plan Assessment and Plan Assess & Plan/Chief Complaint Assessment: s/p left hip fracture 12/05/19 then s/p fall with dislocation and fracture during attempted reduction in [facility] ER requiring repeat repair 12/12/19 [facility] Severe bipolar mental illness Anorexia Nervosa restricting type Severe malnutrition Urinary retention requiring hayden cath consulted Urology Anemia severe iron deficient type starting Venofer after midline placed JW refuses blood products with severe anemia RA hx of cervical cancer Prednisone dependency Immunosuppressed Delirium Tachycardia seems to be chronic Hemorrhoids Blisters around rectum placed on Valtrex in case herpes Plan: IVF since she appears dehydrated and tachycardic will continue that Monitor labs Pain meds Anusol prn Valtrex Urology consultation Hematology consultation BM regimen Monitor closely especially confusion (1) Hip fracture, left (2) Refusal of blood transfusions as patient is Jew (3) Anemia (4) Iron deficiency (5) Bipolar 1 disorder, mixed (6) Anorexia nervosa, restricting type (7) Malnutrition (8) Urinary retention (9) Hayden catheter in place (10) Constipation (11) Dehydration (12) Tachycardia (13) Falls frequently (14) Cachexia (15) Rheumatoid arthritis (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
--- NOTE | 2019-12-16 11:54 | Individualized Plan of Care ---
Individualized Plan of Care Rehab Nursing IPOC Order Admission Date Dec 15, 2019 at 12:30 Current Orders Orders Admission Order(Inpt,Obs,Sdc) (12/15/19 12:00) Vital Signs: Per Unit Policy ( 08,16,00 (12/15/19 12:00) Smith Mann (12/15/19 12:00) Sequential Compression Device Q4H (12/15/19 12:00) Recreation Activities Coordinator-Inpt Rehab Con (12/15/19 12:00) Rehab Nursing Orders-Ipoc (12/15/19 12:00) Physical Therapy Rehab Orders (12/15/19 12:00) Occupational Therapy Rehab Ord (12/15/19 12:00) Speech Therapy Rehab Orders (12/15/19 12:00) Cbc With Automated Diff (12/16/19 06:00) Comprehensive Metabolic Panel (12/16/19 06:00) Precautions (Aru) (12/15/19 12:00) Rehab-Intensity Of Therapy (12/15/19 12:00) Initiate Admission Nursing Pro .admission (12/15/19 12:00) Acetaminophen Tablet (Tylenol Tablet) (12/15/19 12:00) Alprazolam Tablet (Xanax Tablet) (12/15/19 12:00) Calcium Carbonate Chew Tablet (Antacid C (12/15/19 12:00) Diphenhydramine Tablet (Benadryl Tablet) (12/15/19 12:00) Docusate Sodium Capsule (Colace Capsule) (12/15/19 21:00) Docusate Sodium Capsule (Colace Capsule) (12/15/19 12:00) Bisacodyl Suppository (Dulcolax Supposit (12/15/19 12:00) Lactulose Oral Solution (Enulose Oral So (12/15/19 12:00) Na Phos/Na Biphos Enema (Fleet Enema Bertrand (12/15/19 12:00) Guaifenesin/Codeine Syrup (Robitussin Ac (12/15/19 12:00) Loperamide Tablet (Imodium Tablet) (12/15/19 12:00) Enoxaparin Injection (Lovenox Injection) (12/15/19 14:00) Melatonin Tablet (Melatonin Tablet) (12/15/19 12:00) Polyethylene Glycol Powder Pkt (Miralax (12/15/19 21:00) Ondansetron Oral Dissolve Tab (Zofran (12/15/19 12:00) Senna S Tablet (Senokot S Tablet) (12/15/19 21:00) Consult Urology (12/15/19 12:00) Acetaminophen Tablet/Caplet (Tylenol T (12/15/19 12:15) Aspirin Chewable Tablet (Baby Aspirin Ch (12/15/19 17:00) Bisacodyl Suppository (Dulcolax Supposit (12/15/19 12:15) Folic Acid Tablet (Folic Acid Tablet) (12/16/19 09:00) Methocarbamol Tablet (Robaxin Tablet) (12/15/19 13:00) Oxycodone Immediate Rel Tablet (Oxyir Ta (12/15/19 12:15) Polyethylene Glycol Powder Pkt (Miralax (12/16/19 09:00) Prednisone Tablet (Deltasone Tablet) (12/16/19 08:00) Senna S Tablet (Senokot S Tablet) (12/15/19 21:00) (Nf) Estradiol (Climara Patch Weekly 0.0 (12/15/19 12:15) (Nf) Ferrous Gluconate (12/15/19 12:15) (Nf) Lamotrigine (Lamictal) (12/16/19 09:00) (Nf) Magnesium Hydroxide (Milk Of Magnes (12/15/19 12:15) Transfer - Bed/Room/Location (12/15/19 12:30) Magnesium Hydroxide Oral Susp (Mom Oral (12/15/19 13:00) Methotrexate Tablet (Methotrexate Tablet (01/15/20 09:00) Methocarbamol Tablet (Robaxin Tablet) (12/15/19 13:00) Lamotrigine Tablet (Lamictal Tablet) (12/16/19 09:00) Ferrous Sulfate Tablet (Feosol Tablet) (12/16/19 08:00) Ns Iv 1000 Ml (Sodium Chloride 0.9%) (12/15/19 13:45) Cbc With Automated Diff (12/15/19 13:32) Comprehensive Metabolic Panel (12/15/19 13:32) Iron Test (Fe) (12/15/19 13:32) Prealbumin (12/15/19 13:32) Iron Sucrose Injection (Venofer Injectio (12/15/19 13:45) Lactulose Oral Solution (Enulose Oral So (12/15/19 13:45) Senna S Tablet (Senokot S Tablet) (12/15/19 13:45) Polyethylene Glycol Powder Pkt (Miralax (12/15/19 13:45) Vte Contraindication (12/15/19 13:42) Venous Access Request Order (12/15/19 14:10) General/Regular (12/15/19 Lunch) Bethanechol Tablet (Urecholine Tablet) (12/15/19 16:00) Tamsulosin Capsule (Flomax Capsule) (12/15/19 18:00) Patient Visit (12/15/19 ) Pt Eval Moderate Complexity (12/15/19 ) Functional Activities, Ea 15 (12/15/19 ) Patient Visit (12/15/19 ) Speech Sound Lang Comp (12/15/19 ) Hydrocortisone 2.5% Cream (Anusol-Hc 2.5 (12/15/19 16:30) Amb Us Guide Vascular Access (12/15/19 ) Transfer - Bed/Room/Location (12/15/19 16:50) Lactic Acid Analyzer (12/15/19 16:54) Procalcitonin (Pct) (12/15/19 16:54) Catheter(Urinary) Insert & Ass 03,15 (12/15/19 16:57) Urinalysis (12/15/19 18:20) Blood Culture (12/15/19 18:35) Ceftriaxone For Iv Use (Rocephin For I (12/15/19 18:45) Urine Culture (12/15/19 18:35) Procalcitonin (Pct) (12/16/19 06:00) Risperidone Tablet (Risperdal Tablet) (12/15/19 21:00) Risperidone Tablet (Risperdal Tablet) (12/15/19 18:45) Haloperidol Injection (Haldol Injectio (12/15/19 18:45) Haloperidol Tablet (Haldol Tablet) (12/15/19 18:45) Ferrous Sulfate Tablet (Feosol Tablet) (12/26/19 08:00) Request Ot Evaluate & Treat (12/15/19 19:07) Ambulate , (12/15/19 19:07) Sequential Compression Device Q4H (12/15/19 19:07) Dvt/Vte Risk - Notifiy Physici Q4H (12/15/19 19:07) Add Behavorial Health Instruct (12/15/19 19:07) Notify Provider-Suicidal Inten (12/15/19 19:07) Ensure Enlive (12/16/19 Breakfast) Valacyclovir Tablet (Valtrex Tablet) (12/15/19 21:00) Code/Resuscitation (12/15/19 22:38) General/Regular (12/16/19 Breakfast) Patient Visit (12/16/19 ) Exercise Therap, Ea 15 Min (12/16/19 ) Functional Activities, Ea 15 (12/16/19 ) Consult Oncology/Hematology (12/16/19 14:06) Darbepoetin Roberto (Hospital) (Aranesp Non (12/16/19 15:30) Cyanocobalamin Tablet (Vitamin B-12 Tabl (12/17/19 07:00) Vitamin B 12 (12/17/19 05:00) Folic Acid (12/17/19 05:00) Iron Tibc %Sat & Ferritin (12/17/19 05:00) Rehab Nursing Orders: Ongoing Assess. of Cognitive Status, Ongoing Assess. of Function Status, Bladder Management, Bladder Scan, Bladder Training, Bowel Management, Bowel Training, Disease Management & Educaiton, DVT Prophylaxis, Fall Prevention, Fluid/Electrolyte/Nutrition Mgmt, Infection Prevention, Med ication Management & Education, Management of Risks & Complications, Management of Skin Intergrity, Nutrition Management, Pain Management, Patient/Family Support, Safety Management Intensity of Therapy to be met Patient to be seen: Min.3h per day/5 of 7d PT IPOC Problem List: Activity Tolerance, Functional Strength, Safety, Balance, Gait, Transfer, Bed Mobility, ROM Treatment Plan: Continue Plan of Care Bed Mobility, Concurrent Therapy, Education, Functional Activity Connie, Functional Strength, Group Therapy, Gait, Safety, Therapeutic Exercise, Transfers Treatment Duration: Jan 19, 2020 Frequency: At least 5 of 7 days/Wk (IRF) Estimated Hrs Per Day: 1.5 hours per day OT IPOC Problems: Decreased Activ Tolerance, Decreased Safety Aware, Decreased UE Strength, Dependent Transfers, Impaired Bed Mobility, Impaired Cognition, Im paired Coordination, Impaired Funct Balance, Impaired I ADL's, Impaired Self- Care Skills, Restricted Funct UE ROM OT Treatment, Training and Edu: Yes Plan of Care: ADL Retraining, Functional Mobility, Group Exercise/Act as Ind, UE Funct Exercise/Act Treatment Duration: Jan 05, 2020 Frequency: At least 5 of 7 days/Wk (IRF) Estimated Hrs Per Day: 1.[address] IPOC Speech Therapy Treatment Plan: Continue Plan of Care Treatment Duration: Dec 15, 2019 Frequency: 5 times per week Estimated Hrs Per Day: .5 hour per day Recreation Activities Coordinator/Case Mgmt Recreation Activities Coordinator/Case Managemen: Discharge Planning Dietitian/Clinical Science Consultant Dietitian/Clinical Science Consultant to monitor nutritional status and make changes and/or recommendations as needed and work with speech pathology on dietary upgrades as the occur. Physician IPOC Medical Issues being managed closely and that require the 24 hour availability of a physician: Patient with steroid dependence and severe anemia and malnutrition with JW restriction on blood transfusion at high risk for decompensation along with flare of mental illness of bipolar and hallucinations Medical Issues: Bowel/Bladder Function, DVT Prophylaxis, Falls Precautions, Fluid/Electrolyte/Nutrition Balance, Infection Protection, Pain Management, Swallowing Precautions, Weight Bearing Precautions Brief Synthesis of Preadmission Screen, Post-Admission Evaluation, and Therapy Evaluations: PT OT ST will all focus on regaining enough ADL's to live independently and ambulate Medical Prognosis: Good Anticipated Length of Stay: 10 days DENI JUAREZ DO Dec 16, 2019 11:53
--- NOTE | 2019-12-16 12:19 | Individualized Plan of Care ---
Individualized Plan of Care Rehab Nursing IPOC Order Admission Date Dec 15, 2019 at 12:30 Current Orders Orders Admission Order(Inpt,Obs,Sdc) (12/15/19 12:00) Vital Signs: Per Unit Policy ( 08,16,00 (12/15/19 12:00) Smith Mann (12/15/19 12:00) Sequential Compression Device Q4H (12/15/19 12:00) [place] Debeader-Inpt Rehab Con (12/15/19 12:00) Rehab Nursing Orders-Ipoc (12/15/19 12:00) Physical Therapy Rehab Orders (12/15/19 12:00) Occupational Therapy Rehab Ord (12/15/19 12:00) Speech Therapy Rehab Orders (12/15/19 12:00) Cbc With Automated Diff (12/16/19 06:00) Comprehensive Metabolic Panel (12/16/19 06:00) Precautions (Aru) (12/15/19 12:00) Rehab-Intensity Of Therapy (12/15/19 12:00) Initiate Admission Nursing Pro .admission (12/15/19 12:00) Acetaminophen Tablet (Tylenol Tablet) (12/15/19 12:00) Alprazolam Tablet (Xanax Tablet) (12/15/19 12:00) Calcium Carbonate Chew Tablet (Antacid C (12/15/19 12:00) Diphenhydramine Tablet (Benadryl Tablet) (12/15/19 12:00) Docusate Sodium Capsule (Colace Capsule) (12/15/19 21:00) Docusate Sodium Capsule (Colace Capsule) (12/15/19 12:00) Bisacodyl Suppository (Dulcolax Supposit (12/15/19 12:00) Lactulose Oral Solution (Enulose Oral So (12/15/19 12:00) Na Phos/Na Biphos Enema (Fleet Enema Bertrand (12/15/19 12:00) Guaifenesin/Codeine Syrup (Robitussin Ac (12/15/19 12:00) Loperamide Tablet (Imodium Tablet) (12/15/19 12:00) Enoxaparin Injection (Lovenox Injection) (12/15/19 14:00) Melatonin Tablet (Melatonin Tablet) (12/15/19 12:00) Polyethylene Glycol Powder Pkt (Miralax (12/15/19 21:00) Ondansetron Oral Dissolve Tab (Zofran (12/15/19 12:00) Senna S Tablet (Senokot S Tablet) (12/15/19 21:00) Consult Urology (12/15/19 12:00) Acetaminophen Tablet/Caplet (Tylenol T (12/15/19 12:15) Aspirin Chewable Tablet (Baby Aspirin Ch (12/15/19 17:00) Bisacodyl Suppository (Dulcolax Supposit (12/15/19 12:15) Folic Acid Tablet (Folic Acid Tablet) (12/16/19 09:00) Methocarbamol Tablet (Robaxin Tablet) (12/15/19 13:00) Oxycodone Immediate Rel Tablet (Oxyir Ta (12/15/19 12:15) Polyethylene Glycol Powder Pkt (Miralax (12/16/19 09:00) Prednisone Tablet (Deltasone Tablet) (12/16/19 08:00) Senna S Tablet (Senokot S Tablet) (12/15/19 21:00) (Nf) Estradiol (Climara Patch Weekly 0.0 (12/15/19 12:15) (Nf) Ferrous Gluconate (12/15/19 12:15) (Nf) Lamotrigine (Lamictal) (12/16/19 09:00) (Nf) Magnesium Hydroxide (Milk Of Magnes (12/15/19 12:15) Transfer - Bed/Room/Location (12/15/19 12:30) Magnesium Hydroxide Oral Susp (Mom Oral (12/15/19 13:00) Methotrexate Tablet (Methotrexate Tablet (01/15/20 09:00) Methocarbamol Tablet (Robaxin Tablet) (12/15/19 13:00) Lamotrigine Tablet (Lamictal Tablet) (12/16/19 09:00) Ferrous Sulfate Tablet (Feosol Tablet) (12/16/19 08:00) Ns Iv 1000 Ml (Sodium Chloride 0.9%) (12/15/19 13:45) Cbc With Automated Diff (12/15/19 13:32) Comprehensive Metabolic Panel (12/15/19 13:32) Iron Test (Fe) (12/15/19 13:32) Prealbumin (12/15/19 13:32) Iron Sucrose Injection (Venofer Injectio (12/15/19 13:45) Lactulose Oral Solution (Enulose Oral So (12/15/19 13:45) Senna S Tablet (Senokot S Tablet) (12/15/19 13:45) Polyethylene Glycol Powder Pkt (Miralax (12/15/19 13:45) Vte Contraindication (12/15/19 13:42) Venous Access Request Order (12/15/19 14:10) General/Regular (12/15/19 Lunch) Bethanechol Tablet (Urecholine Tablet) (12/15/19 16:00) Tamsulosin Capsule (Flomax Capsule) (12/15/19 18:00) Patient Visit (12/15/19 ) Pt Eval Moderate Complexity (12/15/19 ) Functional Activities, Ea 15 (12/15/19 ) Patient Visit (12/15/19 ) Speech Sound Lang Comp (12/15/19 ) Hydrocortisone 2.5% Cream (Anusol-Hc 2.5 (12/15/19 16:30) Amb Us Guide Vascular Access (12/15/19 ) Transfer - Bed/Room/Location (12/15/19 16:50) Lactic Acid Analyzer (12/15/19 16:54) Procalcitonin (Pct) (12/15/19 16:54) Catheter(Urinary) Insert & Ass 03,15 (12/15/19 16:57) Urinalysis (12/15/19 18:20) Blood Culture (12/15/19 18:35) Ceftriaxone For Iv Use (Rocephin For I (12/15/19 18:45) Urine Culture (12/15/19 18:35) Procalcitonin (Pct) (12/16/19 06:00) Risperidone Tablet (Risperdal Tablet) (12/15/19 21:00) Risperidone Tablet (Risperdal Tablet) (12/15/19 18:45) Haloperidol Injection (Haldol Injectio (12/15/19 18:45) Haloperidol Tablet (Haldol Tablet) (12/15/19 18:45) Ferrous Sulfate Tablet (Feosol Tablet) (12/26/19 08:00) Request Ot Evaluate & Treat (12/15/19 19:07) Ambulate (12/15/19 19:07) Sequential Compression Device Q4H (12/15/19 19:07) Dvt/Vte Risk - Notifiy Physici Q4H (12/15/19 19:07) Add Behavorial Health Instruct (12/15/19 19:07) Notify Provider-Suicidal Inten (12/15/19 19:07) Ensure Enlive (12/16/19 Breakfast) Valacyclovir Tablet (Valtrex Tablet) (12/15/19 21:00) Code/Resuscitation (12/15/19 22:38) General/Regular (12/16/19 Breakfast) Patient Visit (12/16/19 ) Exercise Therap, Ea 15 Min (12/16/19 ) Functional Activities, Ea 15 (12/16/19 ) Consult Oncology/Hematology (12/16/19 14:06) Darbepoetin Roberto (Hospital) (Aranesp Non (12/16/19 15:30) Cyanocobalamin Tablet (Vitamin B-12 Tabl (12/17/19 07:00) Vitamin B 12 (12/17/19 05:00) Folic Acid (12/17/19 05:00) Iron Tibc %Sat & Ferritin (12/17/19 05:00) Rehab Nursing Orders: Ongoing Assess. of Function Status Intensity of Therapy to be met Patient to be seen: Min.3h per day/5 of 7d PT IPOC Problem List: Activity Tolerance, Functional Strength, Safety, Balance, Gait, Transfer, Bed Mobility, ROM Bed Mobility, Concurrent Therapy, Education, Functional Activity Connie, Functional Strength, Group Therapy, Gait, Safety, Therapeutic Exercise, Transfers Treatment Duration: Jan 19, 2020 Frequency: At least 5 of 7 days/Wk (IRF) Estimated Hrs Per Day: 1.5 hours per day OT IPOC Problems: Decreased Activ Tolerance, Decreased Safety Aware, Decreased UE Strength, Dependent Transfers, Impaired Bed Mobility, Impaired Cognition, Impaired Coordination, Impaired Funct Balance, Impaired I ADL's, Impaired Self- Care Skills, Restricted Funct UE ROM OT Treatment, Training and Edu: Yes Plan of Care: ADL Retraining, Functional Mobility, Group Exercise/Act as Ind, UE Funct Exercise/Act Treatment Duration: Jan 05, 2020 Frequency: At least 5 of 7 days/Wk (IRF) Estimated Hrs Per Day: 1.5 hours per day [facility] Speech Therapy Treatment Plan: Continue Plan of Care Frequency: 5 times per week Estimated Hrs Per Day: .5 hour per day [place] Debeader/Case Mgmt [place] Debeader/Case Managemen: Discharge Planning Dietitian/Precision Lens Polisher Dietitian/Precision Lens Polisher to monitor nutritional status and make changes and/or recommendations as needed and work with speech pathology on dietary upgrades as the occur. Physician IP Medical Issues being managed closely and that require the 24 hour availability of a physician: Brief Synthesis of Preadmission Screen, Post-Admission Evaluation, and Therapy Evaluations: DENI JUAREZ DO Dec 16, 2019 12:19
--- NOTE | 2019-12-16 13:43 | Physical Therapy Daily Note ---
PT Daily Note-Current Subjective Pt is up on the commode on arrival. She is agreeable to treatment. Mental Status Patient Orientation: Person, Place, Situation Attachments: Freire Catheter, IV Transfers SCALE: Activities may be completed with or without assistive devices. 4-Ppuxfnvttj-rxynrnp completes the activity by him/herself with no assistance from a helper. 5-Set-up or Clean-up Assistance-helper sets up or cleans up; patient completes activity. [place] assists only prior to or following the activity. 4-Supervision or Touching Assistance-helper provides verbal cues and/or touching/steadying and/or contact guard assistance as patient completes activity. Assistance may be provided throughout the activity or intermittently. 3-Partial/Moderate Assistance-helper does LESS THAN HALF the effort. [place] lifts, holds or supports trunk or limbs, but provides less than half the effort. 2-Substantial/Maximal Assistance-helper does MORE THAN HALF the effort. [place] lifts or holds trunk or limbs and provides more than half the effort. 6-Lkczhonlc-rdvoly does ALL the effort. Patient does none of the effort to complete the activity. Or, the assistance of 2 or more helpers is required for the patient to complete the activity. If activity was not attempted, code reason: 7-Patient Refused. 9-Not Applicable-not attempted and the patient did not perform the activity before the current illness, exacerbation or injury. 10-Not Attempted due to Environmental Limitations-(lack of equipment, weather restraints, etc.). 88-Not Attempted due to Medical Conditions or Safety Concerns. Sit to Stand (QC): 1 Chair/Rny-dn-Devsr Xfer(QC): 1 Toilet Transfer (QC): 1 Weight Bearing Right Lower Extremity: Right Full Weight Bearing Left Lower Extremity: Left Weight Bearing/Tolerated Gait Training Does the Patient Walk?: No and Walking Goal IS indicated Exercises Supine Ex: LE Protocol Supine Reps: 20 Pt requires full assistance for (L) LE exercises and 50% assist for (R) LE exercises. Treatments Performed standing with total assist from the commode for pt to be cleaned. Sat back down, rested, and stood again to don a brief. Pt then transferred to the bed with total assist. Total assist from sit to supine. Assessment Current Status: Fair Progress Pt has (B) hip flexion contractures (10 degrees) and (L) knee flexion contracture (roughly 20 degrees). She required assist with all supine ex and total assist with transfers and bed mobility. PT Short Term Goals Short Term Goals Time Frame: Dec 30, 2019 Roll Left & Right: 3 Sit to lyin Lying to sitting on side of be: 3 Sit to stand: 3 Chair/say-xp-ghlzb transfer: 3 Toilet transfer: 3 Car transfer: 3 Walk 10 feet: 3 Walk 50 feet with two turns: 3 Walk 150 feet: 3 Walking 10ft on uneven surface: 3 1 step (curb): 3 4 steps: 3 12 steps: 9 Picking up objects: 4 Does pt use a wc or scooter: Yes Wheel 50ft w/2 turns: 4 Wheel 150 feet: 4 Type: Manual PT Stoker Mechanic Goals Stoker Mechanic Goals PT Usp Goals Time Frame: Jan 19, 2020 Roll Left & Right (QC): 5 Sit to Lying (QC): 5 Lying-Sitting on Side/Bed(QC): 5 Sit to Stand (QC): 5 Chair/Gti-ww-Csavw Xfer(QC): 5 Toilet Transfer (QC): 5 Car Transfer (QC): 5 Does the Patient Walk: Yes Walk 10 feet (QC): 5 Walk 50ft with 2 Turns (QC): 5 Walk 150 ft (QC): 5 Walking 10ft on Uneven Surface: 5 1 Step (curb) (QC): 5 4 Steps (QC): 5 12 Steps (QC): 9 Picking up an Object (QC): 5 PT Plan Treatment/Plan Treatment Plan: Continue Plan of Care Treatment Plan: Bed Mobility, Concurrent Therapy, Education, Functional Activity Connie, Functional Strength, Group Therapy, Gait, Safety, Therapeutic Exercise, Transfers Treatment Duration: Jan 19, 2020 Frequency: At least 5 of 7 days/Wk (IRF) Estimated Hrs Per Day: 1.5 hours per day Patient and/or Family Agrees t: Yes Time/GCodes Time In: 1300 Time Out: 1330 Total Billed Treatment Time: 30 Total Billed Treatment 1, ex 20, fa 10 PABLO CONLEY PT Dec 16, 2019 13:42
--- NOTE | 2019-12-16 14:26 | NUR ---
Fence Installer Foreman follow up on referral. Pt is Jehovah Witness. She is able to visit with her mandaeism friends via [employer]. Right now she is rather sleepy due to medications. Fence Installer Foreman offered blessing.
[2019-12-16] MEDS ORDERED: DARBEPOETIN 100 MCG/ML (ARANESP) 1 ML HOSPITAL SC ONE (15:30)
--- NOTE | 2019-12-16 15:41 | CONSULTATION REPORT ---
DATE OF SERVICE: 12/15/2019 ATTENDING PHYSICIAN: Dr. Gage. SUMMARY: A 64-year-old white lady recovering from hip fracture, failed trial of voiding. The patient denies any voiding symptoms prior to this at home. IMPRESSION: Urinary retention, neurogenic. PLAN: We will start her on Flomax 0.4 mg daily and Urecholine 25 mg q.i.d. before meals and at bedtime and we will manage accordingly. Probably on Wednesday, I will give her a trial of voiding. Job ID: [id number] DocumentID: [id number] Dictated Date: 12/16/2019 15:29:04 Blowing Engineer Date: 12/16/2019 15:40:37 Dictated By: MEERA RAMÍREZ MD
--- NOTE | 2019-12-16 16:15 | Consultation ---
History of Present Illness History of Present Illness Patient Consulted On(courtney/time) 12/16/19 16:06 Date Seen by Provider: Dec 16, 2019 Time Seen by Provider: 16:06 History of Present Illness Ms. Mills is a 64 yo female Mormon with rheumatoid arthritis who was admitted to inpatient rehab yesterday 12/15/19 after left hip surgery. On admission, she was noted to have a hgb of 8.2 g/dl, which declined to 7.1 this morning. She had fallen on 11/29/19 after tripping on her dog and suffered from a subcapital left femur fracture. She was transferred to [facility] for surgery, which she had on 12/05/19. After discharge home, she slipped on water and fell again, dislocating her left hip on 12/12/19. After three unsuccessful external reduction attempts, she was transferred back to [facility] for surgery. Patient says her pain is well controlled currently but feels groggy. She is a poor historian. Although she is on methotrexate for her RA, she says her arthritis has generally been well controlled. She denies any bleeding, bruising, blood in her stools or urine. Denies headache, change in vision, numbness, paresthesias or focal weakness, chest pain, palpitations, shortness of breath, abdominal pain. Allergies and Home Medications Allergies Coded Allergies: prochlorperazine (Verified Allergy, Unknown, 11/29/19) Home Medications Acetaminophen 325 Mg Tablet, 650 MG PO Q4H PRN for PAIN-MILD (1-4), (Reported) Aspirin 81 Mg Tab.chew, 81 MG PO BID WITH MEALS, (Reported) TAKE FOR 35 DAYS Bisacodyl 10 Mg Supp.rect, 10 MG RC DAILY PRN for CONSTIPATION-4TH LINE, (Reported) Estradiol 1 Each Patch.tdwk, 1 EACH TD Weekly, (Reported) Ferrous Gluconate 324 Mg Tablet, 324 MG PO DAILY W/ BREAKFAST, (Reported) Folic Acid 1 Mg Tablet, 1 MG PO DAILY, (Reported) Lamotrigine 150 Mg Tablet, 300 MG PO DAILY, (Reported) Magnesium Hydroxide 2,400 Mg/10 Ml Oral.susp, 10 MG PO DAILY PRN for CONSTIPATION-7TH LINE, (Reported) Methocarbamol 750 Mg Tablet, 750 MG PO TID, (Reported) Methotrexate Sodium 2.5 Mg Tablet, 15 MG PO WEEK, (Reported) HOLD FOR 1 MONTH STARTING 12-15-2019 TAKES 6 (2.5MG) TABS ONCE WEEKLY Oxycodone HCl 5 Mg Tablet, 5-10 MG PO Q4H PRN for PAIN-SEVERE (8-10), (Reported) Polyethylene Glycol 3350 17 Gm Powd.pack, 17 GM PO DAILY, (Reported) Prednisone 5 Mg Tablet, 7.5 MG PO DAILY W/ BREAKFAST, (Reported) Sennosides/Docusate Sodium 1 Each Tablet, 1 EACH PO BID, (Reported) Patient Home Medication List Home Medication List Reviewed: Yes Past Drhzoka-Mweigb-Qhkgxf Hx Past Med/Social Hx: Reviewed Nursing Past Med/Soc Hx, Reviewed and Corrections made Patient Social History Alcohol Use: Regular Use Number of Drinks Today: 0 Alcohol Beverage of Choice: Wine Recreational Drug Use: Yes (mj AND "OTHER REC. DRUGS.") Smoking Status: Never a Smoker 2nd Hand Smoke Exposure: No Recent Foreign Travel: No Contact w/Someone Who Travel: No Recent Infectious Disease Expo: No Recent Hopitalizations: Yes (L hip surgery discharged 7 days ago) Immunizations Up To Date Date of Pneumonia Vaccine: Aug 16, 2019 Date of Influenza Vaccine: Jul 12, 2019 Seasonal Allergies Seasonal Allergies: No Past Medical History Surgeries: Yes (Left femur/hip surgery. ) Gallbladder, Hysterectomy, Orthopedic Respiratory: No Cardiac: No Neurological: No : No Genitourinary: No Gastrointestinal: Yes Chronic Constipation, Gall Bladder Disease Musculoskeletal: Yes Fractures Endocrine: No HEENT: No Cancer: Yes Cervical Did You Recieve Any Treatments: Yes What Type of Treatment Did You: Surgical Intervention Psychosocial: Yes Eating Disorder, Anxiety, Bipolar, Depression Integumentary: No Blood Disorders: No Review of Systems-General Constitutional: no symptoms reported EENTM: no symptoms reported Respiratory: no symptoms reported Cardiovascular: no symptoms reported Gastrointestinal: no symptoms reported Genitourinary: no symptoms reported Musculoskeletal: other (left hip pain) Skin: no symptoms reported Psychiatric/Neurological: No Symptoms Reported Physical Exam-General Problems Physical Exam Vital Signs Vital Signs - First Documented 12/15/19 12/15/19 12:30 13:20 Temp 37.0 Pulse 120 Resp 16 B/P (MAP) 107/67 Pulse Ox 95 O2 Delivery Room Air Capillary Refill : Less Than 3 SecondsLess Than 3 Seconds General Appearance: WD/WN, no apparent distress Eyes: Bilateral Eye Normal Inspection, Bilateral Eye EOMI HEENT: normal ENT inspection Neck: full range of motion, supple, normal inspection Respiratory: chest non-tender, lungs clear, normal breath sounds, no respiratory distress, no accessory muscle use Cardiovascular: normal peripheral pulses, no edema, no gallop, no murmur, tachycardia Gastrointestinal: normal bowel sounds, non tender, soft Extremities: other (left hip surgical wound) Neurologic/Psychiatric: no motor/sensory deficits, alert, normal mood/affect, other (disoriented to situation) Skin: warm/dry, pallor Assessment/Plan Assessment/Plan Admission Diagnosis/Plan 64 yo female Mormon with h/o rheumatoid arthritis was admitted 12/15/19 for inpatient rehab after two left hip surgeries. She is severely anemic, presumably due to blood loss from surgery and acute post-surgical inflammation and possibly also poor nutritional reserves. Patient has been giv en parenteral iron therapy and folic acid daily. - In addition to these measures, she should be put on daily vitamin B12. - Although there is little evidence to support the use of erythropoietin stimulating agents in acute anemia, patient cannot receive blood products, so in a way they would be prophylactic for future blood loss emergencies. Therefore, I recommend giving one dose of darbepoetin edi 100mcg per week until blood counts improve. - Consider stopping methotrexate, which is a non-vital medication that can rarely be associated with severe myelosuppression. Thank you for allowing me to participate in the care of Ms. Mills. Clinical Quality Measures DVT/VTE Risk/Contraindication: Risk Factor Score Per Nursin RFS Level Per Nursing on Admit: 4+=Very High Contraindications-Pharm: Other *list below* Other: JW and severe anemia PORTIA PÉREZ MD Dec 16, 2019 16:15
[2019-12-16 17:34] VITALS: BP 118/70
[2019-12-16] MEDS: TAMSULOSIN 0.4 MG (FLOMAX) CAP PO SCH (18:26)
[2019-12-16] MEDS: cefTRIAXone FOR IV USE 1,000 MG in WATER (STERILE) FOR INJECTION 10 ML IV SCH (18:27)
--- NOTE | 2019-12-16 19:17 | NUR ---
bedside report received from KIERRA BRANTLEY, assume care of pt
--- NOTE | 2019-12-16 21:06 | NUR ---
wanting to get up on commode explained by sary rn that pt must try to help as much as possible, pt not wanting to do this wants nurses to pick her up & put her on commode, explained we are here to get you as strong as possible to be as independent as possible, will get pt pain meds but must try to help herself
--- NOTE | 2019-12-16 21:31 | NUR ---
pt having loose liq brown stools, Colace, Enulose & Senokot held, c/o lt hip pain level 5/10 on numeric scale. oxyir 10mg given
--- NOTE | 2019-12-16 22:15 | NUR ---
resting quietly in bed, pain level 0/10 on CNPI scale
--- NOTE | 2019-12-17 01:44 | NUR ---
c/o lt hip pain level 9/10 on numeric scale, oxyir 10mg given
--- NOTE | 2019-12-17 02:32 | NUR ---
resting quietly in bed, pain level 0/10 on CNPI scale
--- NOTE | 2019-12-17 04:45 | NUR ---
tried to draw blood from pt midnight but pt said you are not going to give me blood explained not giving blood but taking blood for tests ordered, explained what tests are for B12, FOLIC ACID & TIBC but pt kept saying iI know you people do not like [employer] people, advised we do not gold cutter anyone & refuses blood products is her right but we were not going to give her blood products we were going to draw blood for testing. Lab personal tried to explain he could just draw blood out of her arm if she did not want me drawing out of her midline but she refused to have blood drawn, advised pt we would honor her wishes for no lab draw at this time.
--- NOTE | 2019-12-17 04:48 | NUR ---
c/o lt hip pain level 8/10 on numeric scale, oxyir 10mg given, pt trying to call family to check with them over labs to be drawn but unable to reach him
--- NOTE | 2019-12-17 05:00 | NUR ---
pain level 4/10 on numeric scale
--- NOTE | 2019-12-17 05:10 | NUR ---
pt trying to call son jose & [facility] without success, upset with this nurse that I can not stay with pt all the time, explained need to care for other pts as well
[2019-12-17 05:36] VITALS: BP 112/64
[2019-12-17] MEDS: BETHANECHOL 25 MG (URECHOLINE) TAB PO SCH ×4 (06:10→20:36)
[2019-12-17] MEDS: ASPIRIN 81 MG CHEW (CHILDREN'S ASA) PO SCH ×2 (06:11→17:30)
[2019-12-17] MEDS: CYANOCOBALAMIN 1,000 MCG (VITAMIN B-12) TABLET PO SCH (06:11)
[2019-12-17] MEDS: NS IV 1000 ML 1,000 ML IV SCH ×2 (06:14→17:01)
[2019-12-17] MEDS: LACTULOSE SYRUP 10GM/15ML (ENULOSE) 30ML UDC PO SCH ×2 (08:26→20:36)
[2019-12-17] MEDS: DOCUSATE SODIUM 100 MG (COLACE) CAP PO SCH ×2 (08:26→20:35)
[2019-12-17] MEDS: polyethylene glycoL POWDER 17 GM (MIRALAX) PACK PO SCH (08:28)
[2019-12-17] MEDS: SENNA W/DOCUSATE (SENOKOT S) TABLET PO SCH ×2 (08:28→20:35)
[2019-12-17] MEDS: risperiDONE 0.25 MG (RisperDAL) TAB PO SCH ×2 (10:20→20:35)
[2019-12-17] MEDS: METHOCARBAMOL 750 MG (ROBAXIN) TAB PO SCH ×3 (10:22→20:35)
[2019-12-17] MEDS: IRON SUCROSE 200 MG/10 ML (VENOFER) VIAL IV SCH (10:22)
[2019-12-17] MEDS: HYDROCORTISONE 2.5% CREAM (ANUSOL-HC) 30 GM TOP SCH ×2 (10:22→20:37)
[2019-12-17] MEDS: VALACYCLOVIR 500 MG TAB (VALTREX) PO SCH ×3 (10:22→20:35)
[2019-12-17] MEDS: FOLIC ACID 1 MG TAB PO SCH (10:22)
[2019-12-17] MEDS: predniSONE 5 MG TAB PO SCH (10:28)
--- NOTE | 2019-12-17 12:32 | PM&R Progress Note ---
Subjective HPI/CC On Admission Date Seen by Provider: Dec 17, 2019 Time Seen by Provider: 12:30 Subjective/Events-last exam Patient failing IRF protocol Patient has no motivation and is in such poor health is does not appear she can be successful Needs slower recovery at [facility] and will arrange that tomorrow Dr Russell has attempted to help her and gave her Epo yesterday along with the IV venofer to help build hgb since she refuses blood transfusion due to JW taoist Mental illness and anorexia with very poor status makes it likely she is heading towards Hospice Not eating or drinking well so will continue IVF Rocephin for UTI hayden still in place Conferred with RN Reviewed therapy notes Checked meds and labs Review of Systems General: Fatigue Focused Exam Lactate Level 12/15/19 17:10: Lactic Acid Level 0.96 Objective Exam Vital Signs Vital Signs Date Time Temp Pulse Resp B/P (MAP) Pulse Ox O2 Delivery O2 Flow Rate FiO2 12/17/19 05:36 37.4 110 18 112/64 (80) 95 Room Air Capillary Refill : Less Than 3 SecondsLess Than 3 Seconds General Appearance: No Apparent Distress, Anxious, Chronically ill, Cachetic, Other (fernandez, pale, frail) HEENT: PERRL/EOMI, Normal ENT Inspection, Pharynx Normal Neck: Full Range of Motion, Normal Inspection, Non Tender, Supple, Carotid Bruit Respiratory: Chest Non Tender, Lungs Clear, Normal Breath Sounds, No Accessory Muscle Use, No Respiratory Distress Cardiovascular: Regular Rate, Rhythm, No Edema, No Gallop, No JVD, No Murmur, Normal Peripheral Pulses, Tachycardia Gastrointestinal: Normal Bowel Sounds, No Organomegaly, No Pulsatile Mass, Non Tender, Soft Back: Normal Inspection, No CVA Tenderness, No Vertebral Tenderness Extremity: Normal Capillary Refill, Normal Inspection, Normal Range of Motion, Non Tender, No Calf Tenderness, No Pedal Edema Neurologic/Psychiatric: Alert, Oriented x3, No Motor/Sensory Deficits, Normal Mood/Affect, apprentice jockey II-XII Norm as Tested, Abnormal Gait, Disoriented (subtle poor recall) Skin: Normal Color, Warm/Dry Lymphatic: No Adenopathy Results/Procedures Lab Patient resulted labs reviewed. FIM Transfers Therapy Code Descriptions/Definitions Functional Lucas Measure: 0=Not Assessed/NA 4=Minimal Assistance 1=Total Assistance 5=Supervision or Setup 2=Maximal Assistance 6=Modified Lucas 3=Moderate Assistance 7=Complete IndependenceSCALE: Activities may be completed with or without assistive devices. 0-Pmbtwzjnlb-drmjjjr completes the activity by him/herself with no assistance from a helper. 5-Set-up or Clean-up Assistance-helper sets up or cleans up; patient completes activity. [place] assists only prior to or following the activity. 4-Supervision or Touching Assistance-helper provides verbal cues and/or touching/steadying and/or contact guard assistance as patient completes activity. Assistance may be provided throughout the activity or intermittently. 3-Partial/Moderate Assistance-helper does LESS THAN HALF the effort. [place] lif ts, holds or supports trunk or limbs, but provides less than half the effort. 2-Substantial/Maximal Assistance-helper does MORE THAN HALF the effort. [place] lifts or holds trunk or limbs and provides more than half the effort. 1-Zureczdpg-esqkoi does ALL the effort. Patient does none of the effort to complete the activity. Or, the assistance of 2 or more helpers is required for the patient to complete the activity. If activity was not attempted, code reason: 7-Patient Refused. 9-Not Applicable-not attempted and the patient did not perform the activity before the current illness, exacerbation or injury. 10-Not Attempted due to Environmental Limitations-(lack of equipment, weather restraints, etc.). 88-Not Attempted due to Medical Conditions or Safety Concerns. Roll Left to Right (QC): 1 Sit to Lying (QC): 1 Sit to Stand (QC): 1 Chair/Ail-ak-Wdrpz Xfer(QC): 1 Car Transfer (QC): 88 Gait Training Does the Patient Walk?: No and Walking Goal IS indicated Walk 10 feet (QC): 88 Walk 50 ft with 2 Turns(QC): 88 Walk 150 ft (QC): 88 Walking 10ft/uneven surface-QC: 88 Gait Assistive Device: FWW Wheelchair Training Does the Pt Use a Wheelchair?: Yes Distance: 10' Wheel 50 ft with 2 turns (QC): 88 Wheel 150 ft (QC): 88 Type of Wheelchair: Manual Stair Training 1 Step (curb) (QC): 88 4 Steps (QC): 88 12 Steps (QC): 88 Balance Picking up an Object (QC): 3 ADL-Treatment Eating (QC): 5 (s/u- pt unable to open soda can, pt requires cues for probelm solving for tab positioning, assist required. Pt brings to mouth and drinks IND.) Oral Hygiene (QC): 5 Bathing Location: L Arm, R Arm, L Upper Leg, R Upper Leg, Chest, Abdomen, Perineal Area Shower/Bathe Self (QC): 2 Upper Body Dressing (QC): 5 Lower Body Dressing (QC): 1 On/Off Footwear (QC): 2 Toileting Hygiene (QC): 1 Toilet Transfer (QC): 1 Assessment/Plan Assessment and Plan Assess & Plan/Chief Complaint Assessment: s/p left hip fracture 12/05/19 then s/p fall with dislocation and fracture during attempted reduction in [facility] ER requiring repeat repair 12/12/19 [facility] Severe bipolar mental illness Anorexia Nervosa restricting type Severe malnutrition Urinary retention requiring hayden cath consulted Urology Anemia severe iron deficient type starting Venofer after midline placed JW refuses blood products with severe anemia RA hx of cervical cancer Prednisone dependency Immunosuppressed Delirium Tachycardia seems to be chronic Hemorrhoids Blisters around rectum placed on Valtrex in case herpes Plan: IVF since she appears dehydrated and tachycardic will continue that Monitor labs Pain meds Anusol prn Valtrex Urology consultation Hematology consultation BM regimen Monitor closely especially confusion Likely needs [facility] placement tomorrow (1) Hip fracture, left (2) Refusal of blood transfusions as patient is Roman Catholic (3) Anemia (4) Iron deficiency (5) Bipolar 1 disorder, mixed (6) Anorexia nervosa, restricting type (7) Malnutrition (8) Urinary retention (9) Hayden catheter in place (10) Constipation (11) Dehydration (12) Tachycardia (13) Falls frequently (14) Cachexia (15) Rheumatoid arthritis (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
--- NOTE | 2019-12-17 13:23 | Progress Note ---
Standard Progress Note Progress Notes/Assess & Plan Date Seen by a Provider: Dec 17, 2019 Time Seen by a Provider: 13:18 Progress/Assessment & Plan 64 yo female Jainism with rheumatoid arthritis admitted to inpatient rehab on 12/15/19 after two successive left hip surgeries was found to be severely anemic, presumably due to blood loss from surgery and poor nutrition. She is refusing physical therapy and blood draws. She seems to have very poor insight into her health and frequently confuses labs with blood transfusions. I am unsure if it is because of baseline poorly controlled psychiatric illness, acute delirium or some combination of multiple factors. She has tentatively agreed to blood draws tomorrow morning. We will continue nutritional supplementation with folic acid, vitamin B12 and iron infusions as needed. She should continue darbepoetin edi 100mcg every week until hgb is around 10.0 g/dl, assuming patient allows us to check her labs. Focused Exam Lactate Level 12/15/19 17:10: Lactic Acid Level 0.96 PORTIA PÉREZ MD Dec 17, 2019 13:23
[2019-12-17 17:13] VITALS: BP 120/72
[2019-12-17] MEDS: TAMSULOSIN 0.4 MG (FLOMAX) CAP PO SCH (17:30)
[2019-12-17] MEDS: cefTRIAXone FOR IV USE 1,000 MG in WATER (STERILE) FOR INJECTION 10 ML IV SCH (18:50)
[2019-12-17] MEDS: ALPRAZolam 0.25 MG (XANAX) TAB PO PRN (20:34)
[2019-12-18] MEDS: NS IV 1000 ML 1,000 ML IV SCH ×2 (02:56→17:04)
[2019-12-18 03:13] LABS: BASOPHILS # (AUTO) 0.1 10^3/uL (0.0-0.1); BASOPHILS % (AUTO) 1 % (0-10); EOSINOPHILS # (AUTO) 0.3 10^3/uL (0.0-0.3); EOSINOPHILS % (AUTO) 3 % (0-10); HEMATOCRIT 21 % (35-52); LYMPHOCYTES # (AUTO) 1.3 X 10^3 (1.0-4.0); LYMPHOCYTES % (AUTO) 12 % (12-44); MEAN CORPUSCULAR HGB CONC 32 G/DL (32-36); MEAN CORPUSCULAR VOLUME 102 FL (80-99); MEAN PLATELET VOLUME 7.6 FL (7.4-10.4); MONOCYTES # (AUTO) 1.1 X 10^3 (0.0-1.0); MONOCYTES % (AUTO) 11 % (0-12); NEUTROPHILS # (AUTO) 7.7 X 10^3 (1.8-7.8); NEUTROPHILS % (AUTO) 74 % (42-75); PLATELET COUNT 663 10^3/uL (130-400); WHITE BLOOD COUNT 10.4 10^3/uL (4.3-11.0)
[2019-12-18 03:14] LABS: MEAN CORPUSCULAR HEMOGLOBIN 34 PG (25-34)
[2019-12-18 03:20] LABS: ALANINE AMINOTRANSFERASE 26 U/L (0-55); ALBUMIN 2.2 GM/DL (3.2-4.5); ALKALINE PHOSPHATASE 84 U/L (40-136); BILIRUBIN,TOTAL 0.2 MG/DL (0.1-1.0); BUN/CREATININE RATIO 11; CALCIUM 7.7 MG/DL (8.5-10.1); CARBON DIOXIDE 24 MMOL/L (21-32); CHLORIDE 105 MMOL/L (98-107); CREATININE SERUM 0.63 MG/DL (0.60-1.30); GFR ESTIMATED > 60; GLUCOSE 94 MG/DL (70-105); POTASSIUM 3.9 MMOL/L (3.6-5.0); SODIUM 136 MMOL/L (135-145); TOTAL PROTEIN 4.2 GM/DL (6.4-8.2)
[2019-12-18 05:10] VITALS: BP 105/62
[2019-12-18] MEDS: ASPIRIN 81 MG CHEW (CHILDREN'S ASA) PO SCH ×2 (06:03→17:02)
[2019-12-18] MEDS: BETHANECHOL 25 MG (URECHOLINE) TAB PO SCH ×2 (06:03→11:12)
[2019-12-18] MEDS: CYANOCOBALAMIN 1,000 MCG (VITAMIN B-12) TABLET PO SCH (06:03)
[2019-12-18] MEDS: VALACYCLOVIR 500 MG TAB (VALTREX) PO SCH ×3 (08:38→20:44)
[2019-12-18] MEDS: risperiDONE 0.25 MG (RisperDAL) TAB PO SCH ×2 (08:38→20:44)
[2019-12-18] MEDS: predniSONE 5 MG TAB PO SCH (08:38)
[2019-12-18] MEDS: METHOCARBAMOL 750 MG (ROBAXIN) TAB PO SCH ×3 (08:38→20:43)
[2019-12-18] MEDS: FOLIC ACID 1 MG TAB PO SCH (08:39)
[2019-12-18] MEDS: HYDROCORTISONE 2.5% CREAM (ANUSOL-HC) 30 GM TOP SCH ×2 (08:40→21:13)
[2019-12-18] MEDS: SENNA W/DOCUSATE (SENOKOT S) TABLET PO SCH ×2 (08:44→21:13)
[2019-12-18] MEDS: DOCUSATE SODIUM 100 MG (COLACE) CAP PO SCH ×2 (08:44→21:12)
[2019-12-18] MEDS: LACTULOSE SYRUP 10GM/15ML (ENULOSE) 30ML UDC PO SCH ×2 (08:44→21:13)
[2019-12-18] MEDS: polyethylene glycoL POWDER 17 GM (MIRALAX) PACK PO SCH (08:44)
--- NOTE | 2019-12-18 08:59 | Physical Therapy Daily Note ---
PT Daily Note-Current Subjective Patient in bed pre tx, agrees to PT, has no complaints of pain. Will be co- treating with OT due to poor patient mobility, strength, endurance, the need to coordinate UE and LE during activity. Appearance Patient BTB post tx with nurse call, phone, tray, all needs met. Mental Status Patient Orientation: Person, Confused, Situation Attachments: Freire Catheter, IV Transfers SCALE: Activities may be completed with or without assistive devices. 4-Oubuwpcpug-xfohoyd completes the activity by him/herself with no assistance from a helper. 5-Set-up or Clean-up Assistance-helper sets up or cleans up; patient completes activity. [place] assists only prior to or following the activity. 4-Supervision or Touching Assistance-helper provides verbal cues and/or touching/steadying and/or contact guard assistance as patient completes activity. Assistance may be provided throughout the activity or intermittently. 3-Partial/Moderate Assistance-helper does LESS THAN HALF the effort. [place] lifts, holds or supports trunk or limbs, but provides less than half the effort. 2-Substantial/Maximal Assistance-helper does MORE THAN HALF the effort. [place] lifts or holds trunk or limbs and provides more than half the effort. 1-Zuulwkwfy-xnkujr does ALL the effort. Patient does none of the effort to complete the activity. Or, the assistance of 2 or more helpers is required for the patient to complete the activity. If activity was not attempted, code reason: 7-Patient Refused. 9-Not Applicable-not attempted and the patient did not perform the activity before the current illness, exacerbation or injury. 10-Not Attempted due to Environmental Limitations-(lack of equipment, weather restraints, etc.). 88-Not Attempted due to Medical Conditions or Safety Concerns. Roll Left & Right (QC): 2 Sit to Lying (QC): 3 Lying to Sitting/Side of Bed(Q: 2 Sit to Stand (QC): 3 Chair/Bep-fn-Yptuh Xfer(QC): 2 Toilet Transfer (QC): 2 Car Transfer (QC): 1 Patient needs detailed cues for positioning and safety during transfers. Patient needs encouragement to bear weight on her leg that didn't have the surgery. Patient sat at the edge of the bed for dressing and to begin bathing, had to use the commode, transferred to it with max assist, stood several times for cleaning and dressing, transferred back to the bed and layed down. Patient also layed down after seated dressing not long after sitting at the edge of the bed. Patient is not able to take steps or even turn using the rolling walker. Weight Bearing Right Lower Extremity: Right Full Weight Bearing Left Lower Extremity: Left Weight Bearing/Tolerated Gait Training Walk 10 feet (QC): 88 Walk 50 ft with 2 Turns(QC): 88 Walk 150 ft (QC): 88 Walking 10ft/uneven surface-QC: 88 Wheelchair Training Wheel 50 ft with 2 turns (QC): 88 Wheel 150 ft (QC): 88 Stair Training 1 Step (curb) (QC): 88 4 Steps (QC): 88 12 Steps (QC): 88 Balance Picking up an Object (QC): 88 Treatments bed mobility and transfers, dressing, bathing, toileting Assessment Current Status: Poor Progress Patient has poor motivation and participation, she states she just wants to go home and she is paranoid and that she thinks we are going to kidnap and kill her. Patient assured that is not the case and was reminded of what we do at rehab. Patient has poor paticipation and bears minimal weight on her non- affected side and doesn't even use her arms to assist much. PT Short Term Goals Short Term Goals Time Frame: Dec 30, 2019 Roll Left & Right: 3 Sit to lyin Lying to sitting on side of be: 3 Sit to stand: 3 Chair/uty-pm-kqewv transfer: 3 Toilet transfer: 3 Car transfer: 3 Walk 10 feet: 3 Walk 50 feet with two turns: 3 Walk 150 feet: 3 Walking 10ft on uneven surface: 3 1 step (curb): 3 4 steps: 3 12 steps: 9 Picking up objects: 4 Does pt use a wc or scooter: Yes Wheel 50ft w/2 turns: 4 Wheel 150 feet: 4 Type: Manual PT Cpc Coder Goals Cpc Coder Goals PT Cpc Coder Goals Time Frame: Jan 19, 2020 Roll Left & Right (QC): 5 Sit to Lying (QC): 5 Lying-Sitting on Side/Bed(QC): 5 Sit to Stand (QC): 5 Chair/Pvs-nz-Hnknv Xfer(QC): 5 Toilet Transfer (QC): 5 Car Transfer (QC): 5 Does the Patient Walk: Yes Walk 10 feet (QC): 5 Walk 50ft with 2 Turns (QC): 5 Walk 150 ft (QC): 5 Walking 10ft on Uneven Surface: 5 1 Step (curb) (QC): 5 4 Steps (QC): 5 12 Steps (QC): 9 Picking up an Object (QC): 5 PT Plan Problem List Problem List: Activity Tolerance, Functional Strength, Safety, Balance, Gait, Transfer, Bed Mobility, ROM Treatment/Plan Treatment Plan: Continue Plan of Care Treatment Plan: Bed Mobility, Concurrent Therapy, Education, Functional Activi ty Connie, Functional Strength, Group Therapy, Gait, Safety, Therapeutic Exercise, Transfers Treatment Duration: Jan 19, 2020 Frequency: At least 5 of 7 days/Wk (IRF) Estimated Hrs Per Day: 1.5 hours per day Patient and/or Family Agrees t: Yes Safety Risks/Education Patient Education: Transfer Techniques, Reviewed Precautions, Correct Positioning, W/C Management, Safety Issues Teaching Recipient: Patient Teaching Methods: Demonstration, Discussion Response to Teaching: Reinforcement Needed Time/GCodes Time In: 0800 Time Out: 0900 Total Billed Treatment Time: 60 Total Billed Treatment 1 visit FA 60' Co-treated for the whole 60', PT performed bed mobility and transfers, standing, assist with seated balance and positioning during bathing and dressing, OT worked on bathing and dressing and toileting. AMIRA JORDAN PT Dec 18, 2019 08:58
--- NOTE | 2019-12-18 09:00 | NUR ---
PER DR. JUAREZ, LEAVE CATHETER IN SINCE PATIENT IS DISCHARGING TO A [facility].
--- NOTE | 2019-12-18 09:05 | Occupational Ther Daily Note ---
OT Current Status-Daily Note Subjective [id number]: OT/ PT co-treat: Pt seen supine in bed, hesitantly agreeable to therapy. Pt expresses paranoia, pt states "this place" gives her paranoia and she does not utilize calming techniques/ medication at home for anxiety as she is not anxious at home. Pt expresses pain in L hip (moderate). Pt educated on O T/ PT role and goals of therapy is to succeed/ reach highest level of IND so that pt can return home safely. Pt agrees that is her goal as well. [id number] (30) OT individual treatment: pt seen in bed. Tearful upon more conversation, stating she "doesn't miss (her) but could use a friend," also expresses she is, "afraid you're going to brain wash me," pt comforted and educated on similar goals, pt expresses readiness for therapy. Pt expresses discomfort at the moment but no pain as pt does not complete OOB activities. Mental Status/Objective Patient Orientation: Person, Place, Situation Attachments: Freire Catheter, IV ADL-Treatment Therapy Code Descriptions/Definitions Functional [place] Measure: 0=Not Assessed/NA 4=Minimal Assistance 1=Total Assistance 5=Supervision or Setup 2=Maximal Assistance 6=Modified [place] 3=Moderate Assistance 7=Complete IndependenceSCALE: Activities may be completed with or without assistive devices. 8-Ertjghrqtr-uwpdrey completes the activity by him/herself with no assistance from a helper. 5-Set-up or Clean-up Assistance-helper sets up or cleans up; patient completes activity. [place] assists only prior to or following the activity. 4-Supervision or Touching Assistance-helper provides verbal cues and/or touching/steadying and/or contact guard assistance as patient completes activity. Assistance may be provided throughout the activity or intermittently. 3-Partial/Moderate Assistance-helper does LESS THAN HALF the effort. [place] lifts, holds or supports trunk or limbs, but provides less than half the effort. 2-Substantial/Maximal Assistance-helper does MORE THAN HALF the effort. [place] lifts or holds trunk or limbs and provides more than half the effort. 7-Ojzxerdrm-eacjqr does ALL the effort. Patient does none of the effort to complete the activity. Or, the assistance of 2 or more helpers is required for the patient to complete the activity. If activity was not attempted, code reason: 7-Patient Refused. 9-Not Applicable-not attempted and the patient did not perform the activity before the current illness, exacerbation or injury. 10-Not Attempted due to Environmental Limitations-(lack of equipment, weather restraints, etc.). 88-Not Attempted due to Medical Conditions or Safety Concerns. Eating (QC): 6 Oral Hygiene (QC): 3 (Pt requires OT s/u as she is unable to unscrew toothpaste and pinch to place on toothbrush. Pt able to bring to mouth and brush teeth, requires min A for thoroughness- pt able to hold container to spit, requires OT bring water to mouth due to usage of hands.) Bathing Location: R Lower Leg (including foot), Chest Shower/Bathe Self (QC): 2 (max A- TD feet, education of precautions, requires assist with bottom/ vinh hygiene. Completes UB washing in bed with max A, rolls to complete back washing. Denies UB dressing.) Upper Body Dressing (QC): 7 Lower Body Dressing (QC): 1 (max A- 2 person assist, 1 for stance and 1 for LB dressing.) On/Off Footwear: 2 (use of sock aide- pt educated on, requires cues throughout) Toileting Hygiene (QC): 1 (TD (max Ax2 for stance and to wipe)) Toilet Transfer (QC): 1 (max A x2) Other Treatment [id number]: OT/ PT co-treat for one hour due to pt's limited mobility, pain, dependent transfers and ADL tasks. OT addressed UB movement and ADLs as PT focused on transfers and LB movements. Pt on phone upon entry, requests 3 minutes, agrees to sponge bath. OT preps materials for sponge bath during this time. Upon re-entry pt off phone, expresses paranoia as above (nursing notified). Pt bed mob max A, sit to stand max A, continued stance TD as pt does not WB through LLE and requires to sit. Pt requests bathroom/ BM, pt TD to squat pivot with RLE to BSC. Pt unable to complete BM, requires TD to clean up. Pt educated on sock aide and use of optical laboratory mechanic for LB dressing. Pt requests back to bed. Pt completes with TD (requirement to move bed toward pt as pt unable to take steps. Pt makes phone call- educated on importance of therapy. Pt states she would like a rest as she did not sleep well last night. Pt educated on OT return in 1 hour. Pt requests more time, pt educated on schedule and need to see at specific times, pt nods. All needs met, call light in reach. [id number]: Pt seen in bed, tearful (above). Pt agrees to oral hygiene and UB washing, but no gown changing. pt completes both with increased time and max A. Pt requires assist reaching below and adjusting undergarments from bottom (pt able to bring hips up from bed as OT completes). Pt left in bed with call light in reach, all needs met. Education OT Patient Education: Correct positioning, Modified ADL techniques, Purpose of tx/functional activities, Reviewed precautions, Use of adapted equipment Teaching Recipient: Patient Teaching Methods: Demonstration, Discussion Response to Teaching: Verbalize Understanding, Return Demonstration, Unable to Comprehend, Reinforcement Needed OT Short Term Goals Short Term Goals Time Frame: Dec 22, 2019 Eatin Oral hygiene: 5 Shower/bathe self: 3 OT Wood Treating Inspector Goals Residential Goals Time Frame: Jan 05, 2020 Eating (QC): 6 Oral Hygiene (QC): 6 Toileting Hygiene (QC): 6 Shower/Bathe Self (QC): 6 Upper Body Dressing (QC): 6 Lower Body Dressing (QC): 6 On/Off Footwear (QC): 6 Additional Goals: 1-Demonstrate ADL Tasks, 2-Verbalize Understanding, 3- ImproveStrength/Connie 1=Demonstrate adherence to instructed precautions during ADL tasks. 2=Patient will verbalize/demonstrate understanding of assistive devices/modifications for ADL. 3=Patient will improve strength/tolerance for activity to enable patient to perform ADL's. OT Education/Plan Problem List/Assessment Assessment: Decreased Activ Tolerance, Decreased UE Strength, Dependent Transfers, Edema, Impaired Bed Mobility, Impaired Cognition, Impaired Funct Balance, Impaired I ADL's, Impaired Self-Care Skills Discharge Recommendations Plan/Recommendations: Continue POC Therapy Discharge Recommendati: 24 Hour Supervision Equpiment Recommendations-D/C: Hip Kit Treatment Plan/Plan of Care Treatment,Training & Education: Yes Patient would benefit from OT for education, treatment and training to promote independence in ADL's, mobility, safety and/or upper extremity function for ADL's. Plan of Care: ADL Retraining, Functional Mobility, Group Exercise/Act as Ind, UE Funct Exercise/Act Treatment Duration: Jan 05, 2020 Frequency: At least 5 of 7 days/Wk (IRF) Estimated Hrs Per Day: 1.5 hours per day Agreement: Yes Rehab Potential: Fair Time/GCodes Start Time: 08:00 Stop Time: 09:00 Total Time Billed (hr/min): 75 Billed Treatment Time [id number]: OT/ PT co-treat for one hour due to pt's limited mobility, pain, dependent transfers and ADL tasks. OT addressed UB movement and ADLs as PT focused on transfers and LB movements. 1, ADL 4 (00) [id number]: OT individual treatment 1, ADL 2 (30) GARRISON PAREDES OTR Dec 18, 2019 09:05
[2019-12-18] MEDS ORDERED: Bethanechol Chl PO (09:19)
[2019-12-18] MEDS ORDERED: TMSL.4C PO (09:19)
[2019-12-18] MEDS ORDERED: CYAN-41 PO (09:19)
[2019-12-18] MEDS ORDERED: OXYC-473 PO (09:19)
[2019-12-18] MEDS ORDERED: HYDR30CR69 TOP (09:19)
[2019-12-18] MEDS ORDERED: VALA500T4 PO (09:19)
--- NOTE | 2019-12-18 09:21 | Discharge Summary ---
Diagnosis/Chief Complaint Date of Admission Dec 15, 2019 at 12:30 Date of Discharge Discharge Date: Dec 18, 2019 Discharge Diagnosis Assessment: s/p left hip fracture 12/05/19 then s/p fall with dislocation and fracture during attempted reduction in [facility] ER requiring repeat repair 12/12/19 [facility] Severe bipolar mental illness Anorexia Nervosa restricting type Severe malnutrition Urinary retention requiring hayden cath consulted Urology Anemia severe iron deficient type starting Venofer after midline placed JW refuses blood products with severe anemia RA hx of cervical cancer Prednisone dependency Immunosuppressed Delirium Tachycardia seems to be chronic Hemorrhoids Blisters around rectum placed on Valtrex in case herpes Rectal bleeding on day of DC but refusing blood products and likely will need Hospice due to end of life status Plan: IVF HL before DC Monitor labs Pain meds Anusol prn Valtrex Urology consultation Hematology consultation BM regimen Monitor closely especially confusion Needs ML care home placement and updated son on likely needs Hospice if fails skilled care (1) Hip fracture, left (2) Refusal of blood transfusions as patient is Scientology (3) Anemia (4) Iron deficiency (5) Bipolar 1 disorder, mixed (6) Anorexia nervosa, restricting type (7) Malnutrition (8) Urinary retention (9) Hayden catheter in place (10) Constipation (11) Dehydration (12) Tachycardia (13) Falls frequently (14) Cachexia (15) Rheumatoid arthritis (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 (17) Immunosuppressed status (18) History of cervical cancer (19) DVT prophylaxis Discharge Summary Discharge Physical Examination Allergies: Coded Allergies: prochlorperazine (Verified Allergy, Unknown, 11/29/19) Vitals & I&Os Vital Signs Date Time Temp Pulse Resp B/P (MAP) Pulse Ox O2 Delivery O2 Flow Rate FiO2 12/19/19 14:24 37.8 127 18 122/76 97 Room Air General Appearance: Alert, Cooperative, Other (thin, cachectic) Cardiovascular: Regular Rate Abdominal: Normal Bowel Sounds Psych/Mental Status: Mood NL (depressed) Hospital Course Was the Problem List Reviewed?: Yes Hospital course: patient had a short course in IRF due to such severe debility and poor reserve from admit on Wednesday from [facility] from severe mental illness and severe anorexia for 42 years causing severe malnutrition and partaking in Jehovas Witness orthodox and refusing any and all blood products in addition to prednisone dependency along with immunosuppression from MTX due to treatment of RA along with urinary retention requiring hayden cath maintenance. Patient refused to participate in most therapies during her short stay and required close monitoring and lab trends along with Hematology consultation and was given Epo and IV iron infusions Wednesday due to severe anemia from acute blood loss from hip fracture repair x 2 within 2 weeks. I had multiple conversations with her son on day of DC after she began having some rectal bleeding and Dr Gomez saw her in consultation and assessed her to be so weak she would be unable to tolerate conscious sedation to undergo any type of endoscopy and agreed this patient was a hospice candidate if she failed a slower recovery process at [place] in [facility]. PPI placed on med list and first dose given prior to DC and patient was DC in stable but guarded condition and I predict her to ultimately failing skilled care and needing emergent hospice enrollment and son was aware of this prediction and agreed with the plan along with other consultants and health care providers. Pain med Rx given at DC along with Xanax for anxiety. Labs (last 24 hrs) Laboratory Tests 12/15/19 12:30: Lab Scanned Report Referred Lab Report 12/15/19 13:50: White Blood Count 16.8H, Red Blood Count 2.62L, Hemoglobin 8.2#L, Hematocrit 26L , Mean Corpuscular Volume 100H, Mean Corpuscular Hemoglobin 31, Mean Corpuscular Hemoglobin Concent 31L, Red Cell Distribution Width 16.1H, Platelet Count 791H, Mean Platelet Volume 8.1, Neutrophils (%) (Auto) 92H, Lymphocytes (%) (Auto) 3L, Monocytes (%) (Auto) 5, Eosinophils (%) (Auto) 0, Basophils (%) (Auto) 0, Neutrophils # (Auto) 15.3H, Lymphocytes # (Auto) 0.5L, Monocytes # (Auto) 0.8, Eosinophils # (Auto) 0.1, Basophils # (Auto) 0.0, Sodium Level 135, Potassium Level 4.2, Chloride Level 101, Carbon Dioxide Level 21, Anion Gap 13, Blood Urea Nitrogen 11, Creatinine 0.72, Estimat Glomerular Filtration Rate > 60, BUN/Creatinine Ratio 15, Glucose Level 128H, Calcium Level 8.2L, Corrected Calcium 9.0, Iron Level 28L, Total Bilirubin 0.4, Aspartate Amino Transf (AST/SGOT) 52H, Alanine Aminotransferase (ALT/SGPT) 37, Alkaline Phosphatase 109, Total Protein 5.8L, Albumin 3.0L, Prealbumin 8.7L 12/15/19 17:10: Lactic Acid Level 0.96, Procalcitonin 0.36H 12/15/19 18:14: Urine Color YELLOW, Urine Clarity CLEAR, Urine pH 7.5, Urine Specific Jackson 1.015L, Urine Protein NEGATIVE, Urine Glucose (UA) NEGATIVE, Urine Ketones NEGATIVE, Urine Nitrite NEGATIVE, Urine Bilirubin NEGATIVE, Urine Urobilinogen 0.2, Urine Leukocyte Esterase TRACEH, Urine RBC (Auto) TRACE-I, Urine RBC 2-5H, Urine WBC 2-5, Urine Squamous Epithelial Cells 2-5, Urine Crystals PRESENTH, Urine Amorphous Sediment FEW LOLIS PHOSPHATEH, Urine Bacteria FEWH, Urine Casts NONE, Urine Mucus NEGATIVE, Urine Culture Indicated CULTURE PENDING 12/16/19 07:20: White Blood Count 10.5, Red Blood Count 2.23L, Hemoglobin 7.1L, Hematocrit 22L, Mean Corpuscular Volume 100H, Mean Corpuscular Hemoglobin 32, Mean Corpuscular Hemoglobin Concent 32, Red Cell Distribution Width 16.4H, Platelet Count 692H, Mean Platelet Volume 7.7, Neutrophils (%) (Auto) 76H, Lymphocytes (%) (Auto) 12, Monocytes (%) (Auto) 9, Eosinophils (%) (Auto) 3, Basophils (%) (Auto) 1, Neutrophils # (Auto) 7.9H, Lymphocytes # (Auto) 1.3, Monocytes # (Auto) 0.9, Eosinophils # (Auto) 0.3, Basophils # (Auto) 0.1 12/16/19 08:20: Sodium Level 133L, Potassium Level 4.0, Chloride Level 101, Carbon Dioxide Level 22, Anion Gap 10, Blood Urea Nitrogen 9, Creatinine 0.61, Estimat Glomerular Filtration Rate > 60, BUN/Creatinine Ratio 15, Glucose Level 80, Calcium Level 7.9L, Corrected Calcium 9.1, Total Bilirubin 0.3, Aspartate Amino Transf (AST/SGOT) 39H, Alanine Aminotransferase (ALT/SGPT) 30, Alkaline Phosphatase 93, Total Protein 4.7L, Albumin 2.5L, Procalcitonin 0.32H 12/18/19 02:45: White Blood Count 10.4, Red Blood Count 2.06L, Hemoglobin 7.0L, Hematocrit 21L, Mean Corpuscular Volume 102H, Mean Corpuscular Hemoglobin 34, Mean Corpuscular Hemoglobin Concent 32, Red Cell Distribution Width 17.0H, Platelet Count 663H, Mean Platelet Volume 7.6, Neutrophils (%) (Auto) 74, Lymphocytes (%) (Auto) 12, Monocytes (%) (Auto) 11, Eosinophils (%) (Auto) 3, Basophils (%) (Auto) 1, Neutrophils # (Auto) 7.7, Lymphocytes # (Auto) 1.3, Monocytes # (Auto) 1.1H, Eosinophils # (Auto) 0.3, Basophils # (Auto) 0.1, Sodium Level 136, Potassium Level 3.9, Chloride Level 105, Carbon Dioxide Level 24, Anion Gap 7, Blood Urea Nitrogen 7, Creatinine 0.63, Estimat Glomerular Filtration Rate > 60, BUN/Creatinine Ratio 11, Glucose Level 94, Calcium Level 7.7L, Corrected Calcium 9.1, Total Bilirubin 0.2, Aspartate Amino Transf (AST/SGOT) 30, Alanine Aminotransferase (ALT/SGPT) 26, Alkaline Phosphatase 84, Total Protein 4.2L, Albumin 2.2L, Iron Level 36, Total Iron Binding Capacity 123L, Unsaturated Iron Binding Capacity 87, Transferrin % Saturation 29, Ferritin 2545.9H, Vitamin B12 Level 640, Folate 14.1 12/19/19 07:35: White Blood Count 10.5, Red Blood Count 2.34L, Hemoglobin 7.5L, Hematocrit 24L, Mean Corpuscular Volume 103H, Mean Corpuscular Hemoglobin 32, Mean Corpuscular Hemoglobin Concent 31L, Red Cell Distribution Width 17.5H, Platelet Count 629H, Mean Platelet Volume 7.6, Neutrophils (%) (Auto) 72, Lymphocytes (%) (Auto) 13, Monocytes (%) (Auto) 11, Eosinophils (%) (Auto) 3, Basophils (%) (Auto) 1, Neutrophils # (Auto) 7.6, Lymphocytes # (Auto) 1.4, Monocytes # (Auto) 1.1H, Eosinophils # (Auto) 0.3, Basophils # (Auto) 0.1, Sodium Level 136, Potassium Level 3.7, Chloride Level 105, Carbon Dioxide Level 23, Anion Gap 8, Blood Urea Nitrogen 5L, Creatinine 0.61, Estimat Glomerular Filtration Rate > 60, BUN/Creatinine Ratio 8, Glucose Level 102, Calcium Level 7.8L, Corrected Calcium 9.1, Total Bilirubin 0.2, Aspartate Amino Transf (AST/SGOT) 27, Alanine Aminotransferase (ALT/SGPT) 28, Alkaline Phosphatase 86, Total Protein 4.6L, Albumin 2.4L, Smear Scan YES Microbiology 12/15/19 Blood Culture - Preliminary, Resulted No growth 12/15/19 Urine Culture - Final, Complete NO GROWTH Pending Labs Microbiology Date/Time Source Procedure Growth Status 12/15/19 19:01 Peripheral Rt Ac Blood Culture - Preliminary No growth Resulted 12/15/19 19:01 Peripheral Lt Ac Blood Culture - Preliminary No growth Resulted 12/15/19 18:14 Urine U Cath,Nos Urine Culture - Final NO GROWTH Complete Laboratory Tests 12/15/19 12:30: Lab Scanned Report Referred Lab Report 12/15/19 13:50: White Blood Count 16.8, Red Blood Count 2.62, Hemoglobin 8.2, Hematocrit 26, Mean Corpuscular Volume 100, Mean Corpuscular Hemoglobin 31, Mean Corpuscular Hemoglobin Concent 31, Red Cell Distribution Width 16.1, Platelet Count 791, Mean Platelet Volume 8.1, Neutrophils (%) (Auto) 92, Lymphocytes (%) (Auto) 3, Monocytes (%) (Auto) 5, Eosinophils (%) (Auto) 0, Basophils (%) (Auto) 0, Neutrophils # (Auto) 15.3, Lymphocytes # (Auto) 0.5, Monocytes # (Auto) 0.8, Eosinophils # (Auto) 0.1, Basophils # (Auto) 0.0, Sodium Level 135, Potassium Level 4.2, Chloride Level 101, Carbon Dioxide Level 21, Anion Gap 13, Blood Urea Nitrogen 11, Creatinine 0.72, Estimat Glomerular Filtration Rate > 60, BUN/Creatinine Ratio 15, Glucose Level 128, Calcium Level 8.2, Corrected Calcium 9.0, Iron Level 28, Total Bilirubin 0.4, Aspartate Amino Transf (AST/SGOT) 52, Alanine Aminotransferase (ALT/SGPT) 37, Alkaline Phosphatase 109, Total Protein 5.8, Albumin 3.0, Prealbumin 8.7 12/15/19 17:10: Lactic Acid Level 0.96, Procalcitonin 0.36 3/20/20 18:14: Urine Color YELLOW, Urine Clarity CLEAR, Urine pH 7.5, Urine Specific Jackson 1.015, Urine Protein NEGATIVE, Urine Glucose (UA) NEGATIVE, Urine Ketones NEGATIVE, Urine Nitrite NEGATIVE, Urine Bilirubin NEGATIVE, Urine Urobilinogen 0.2, Urine Leukocyte Esterase TRACE, Urine RBC (Auto) TRACE-I, Urine RBC 2-5, Urine WBC 2-5, Urine Squamous Epithelial Cells 2-5, Urine Crystals PRESENT, Urine Amorphous Sediment FEW LOLIS PHOSPHATE, Urine Bacteria FEW, Urine Casts NONE, Urine Mucus NEGATIVE, Urine Culture Indicated CULTURE PENDING 12/16/19 07:20: White Blood Count 10.5, Red Blood Count 2.23, Hemoglobin 7.1, Hematocrit 22, Mean Corpuscular Volume 100, Mean Corpuscular Hemoglobin 32, Mean Corpuscular Hemoglobin Concent 32, Red Cell Distribution Width 16.4, Platelet Count 692, Mean Platelet Volume 7.7, Neutrophils (%) (Auto) 76, Lymphocytes (%) (Auto) 12, Monocytes (%) (Auto) 9, Eosinophils (%) (Auto) 3, Basophils (%) (Auto) 1, Neutrophils # (Auto) 7.9, Lymphocytes # (Auto) 1.3, Monocytes # (Auto) 0.9, Eosinophils # (Auto) 0.3, Basophils # (Auto) 0.1 12/16/19 08:20: Sodium Level 133, Potassium Level 4.0, Chloride Level 101, Carbon Dioxide Level 22, Anion Gap 10, Blood Urea Nitrogen 9, Creatinine 0.61, Estimat Glomerular Filtration Rate > 60, BUN/Creatinine Ratio 15, Glucose Level 80, Calcium Level 7.9, Corrected Calcium 9.1, Total Bilirubin 0.3, Aspartate Amino Transf (AST/SGOT) 39, Alanine Aminotransferase (ALT/SGPT) 30, Alkaline Phosphatase 93, Total Protein 4.7, Albumin 2.5, Procalcitonin 0.32 12/18/19 02:45: White Blood Count 10.4, Red Blood Count 2.06, Hemoglobin 7.0, Hematocrit 21, Mean Corpuscular Volume 102, Mean Corpuscular Hemoglobin 34, Mean Corpuscular Hemoglobin Concent 32, Red Cell Distribution Width 17.0, Platelet Count 663, Mean Platelet Volume 7.6, Neutrophils (%) (Auto) 74, Lymphocytes (%) (Auto) 12, Monocytes (%) (Auto) 11, Eosinophils (%) (Auto) 3, Basophils (%) (Auto) 1, Neutrophils # (Auto) 7.7, Lymphocytes # (Auto) 1.3, Monocytes # (Auto) 1.1, Eosinophils # (Auto) 0.3, Basophils # (Auto) 0.1, Sodium Level 136, Potassium Level 3.9, Chloride Level 105, Carbon Dioxide Level 24, Anion Gap 7, Blood Urea Nitrogen 7, Creatinine 0.63, Estimat Glomerular Filtration Rate > 60, BUN/Creatinine Ratio 11, Glucose Level 94, Calcium Level 7.7, Corrected Calcium 9.1, Total Bilirubin 0.2, Aspartate Amino Transf (AST/SGOT) 30, Alanine Aminotransferase (ALT/SGPT) 26, Alkaline Phosphatase 84, Total Protein 4.2, Albumin 2.2, Iron Level 36, Total Iron Binding Capacity 123, Unsaturated Iron Binding Capacity 87, Transferrin % Saturation 29, Ferritin 2545.9, Vitamin B12 Level 640, Folate 14.1 12/19/19 07:35: White Blood Count 10.5, Red Blood Count 2.34, Hemoglobin 7.5, Hematocrit 24, Mean Corpuscular Volume 103, Mean Corpuscular Hemoglobin 32, Mean Corpuscular Hemoglobin Concent 31, Red Cell Distribution Width 17.5, Platelet Count 629, Mean Platelet Volume 7.6, Neutrophils (%) (Auto) 72, Lymphocytes (%) (Auto) 13, Monocytes (%) (Auto) 11, Eosinophils (%) (Auto) 3, Basophils (%) (Auto) 1, Neutrophils # (Auto) 7.6, Lymphocytes # (Auto) 1.4, Monocytes # (Auto) 1.1, Eosinophils # (Auto) 0.3, Basophils # (Auto) 0.1, Sodium Level 136, Potassium Level 3.7, Chloride Level 105, Carbon Dioxide Level 23, Anion Gap 8, Blood Urea Nitrogen 5, Creatinine 0.61, Estimat Glomerular Filtration Rate > 60, BU N/Creatinine Ratio 8, Glucose Level 102, Calcium Level 7.8, Corrected Calcium 9.1, Total Bilirubin 0.2, Aspartate Amino Transf (AST/SGOT) 27, Alanine Aminotransferase (ALT/SGPT) 28, Alkaline Phosphatase 86, Total Protein 4.6, Albumin 2.4, Smear Scan YES Discharge Home Medications: Active Scripts Active Protonix (Pantoprazole Sodium) 40 Mg Tablet.dr 40 Mg PO DAILY Alprazolam 0.25 Mg Tablet 0.25 Mg PO Q8H PRN Vitamin B-12 (Cyanocobalamin (Vitamin B-12)) 1,000 Mcg Tablet 1,000 Mcg PO DAILY@0700 30 Days Proctozone-Hc (Hydrocortisone) 30 Gm Cream.appl 0 Gm TOP BID 14 Days Valtrex (Valacyclovir HCl) 500 Mg Tablet 1,000 Mg PO TID 4 Days Roxicodone (Oxycodone HCl) 5 Mg Tablet 5-10 Mg PO Q4H PRN Reported Prednisone 5 Mg Tablet 7.5 Mg PO DAILY W/ BREAKFAST Miralax (Polyethylene Glycol 3350) 17 Gm Powd.pack 17 Gm PO DAILY Lamictal (Lamotrigine) 150 Mg Tablet 300 Mg PO DAILY Folic Acid 1 Mg Tablet 1 Mg PO DAILY Tylenol (Acetaminophen) 325 Mg Tablet 650 Mg PO Q4H PRN Senna S Tablet (Sennosides/Docusate Sodium) 1 Each Tablet 1 Each PO BID Milk of Magnesia (Magnesium Hydroxide) 2,400 Mg/10 Ml Oral.susp 10 Mg PO DAILY PRN Methocarbamol 750 Mg Tablet 750 Mg PO TID Ferrous Gluconate 324 Mg Tablet 324 Mg PO DAILY W/ BREAKFAST Climara Patch Weekly 0.05mg/hr (Estradiol) 1 Each Patch.tdwk 1 Each TD WEEKLY Bisacodyl 10 Mg Supp.rect 10 Mg RC DAILY PRN Instructions to patient/family Please see electronic discharge instructions given to patient. 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
--- NOTE | 2019-12-18 11:42 | NUR ---
RD ASSESSMENT PMHx: chronic constipation; fractures; CA(cervical) PT INTERACTION: Pt was awake and pleasant during consult for MST score. Note pt has AMS and hx of anorexia nervosa, per chart review. Pt states current appetite is "okay, not great," and is unsure how long she has been that way. Note avg PO intake <25% meals, per chart review. Pt states following a low-CHO diet at home, and has some difficulty chewing as she is missing teeth. Pt states some recent issues with constipation/diarrhea. Note last BM was 12/16, and pt currently on bowel regimen of miralax HS; colace BID; and senna BID, per chart review. Pt states no recent wt changes. Note unable to determine recent wt hx, per chart review. Upon visual exam, pt appears frail and under-nourished with visible signs of muscle wasting (thin arms, temporal region), and a BMI 19.2. For elderly pts, this is classified as Underweight. Given visual exam and PO intake, pt meets criteria for malnutrition per ASPEN guidelines. ABNORMAL NUTRITION-RELATED LAB VALUES LOW: Ca 7.7; Pro 4.2; alb 2.2 HIGH: Est. kcal needs: 8337-2662 kcal | 30-35 kcal/kg Est. Pro needs: 59-71 g Pro | 1.0-1.2 g Pro/kg PES STATEMENT: Inadequate oral intake (NI-2.1) related to loss of appetite | constipation | diarrhea as evidenced by pt interview | avg PO intake <25% meals Starvation related malnutrition (NC-4.1.1) related to behavioral/psychological causes (eating disorder) as evidenced by estimated energy intake <75% >/= 1month Underweight (NC-3.1) related to Disordered eating | inadequate energy intake as evidenced by BMI 19.2 (<22.5 for pts 65+) | decreased muscle mass | malnutrition | confusion/AMS INTERVENTION: Continue with current diet order of Regular diet. Encouraged pt to eat when able. Add Ensure Enlive (vary) to meals TID, for increased kcal intake. Provides 350 kcal and 13 g Pro per serving. Will continue to follow and reassess as pt needs, intake, and status change. MONITOR/EVALUATE: PO Intake; Plan of Care; Hydration Status; Weight Status; Lab Values Nohemi Dickerson, MS, RD, LD
--- NOTE | 2019-12-18 11:46 | Speech Therapy Daily Note ---
Speech Daily Progress Note Subjective Date Seen by Provider: Dec 18, 2019 Time Seen by Provider: 00:15 Patient states she is leaving today. Objective Patient completed q/a related to her new living situation with 80% given moderate cues and/or repetition. Assessment Assessment Current Status: Fair Progress Treatment Plan Discontinue ST Speech Short Term Goals Short Term Goals Short Term Goals 1) The patient will complete memory tasks related to her daily needs at 90% or greater with minimal cues. 2) The patient will complete safety awareness tasks related to her daily needs at 90% or greater with minimal cues. 3) The patient will complete problem solving tasks related to her daily needs at 90% or greater with minimal cues. Speech Service Center Supervisor Goals Fpc Goals Patient will improve cognitive-communication necessary for safety and daily living tasks with minimal assist. Speech-Plan Patient/Family Goals Patient/Family Goals: Patient is discharging to SNF this date. Treatment Plan Speech Therapy Treatment Plan: Discontinue ST Treatment Duration: Dec 15, 2019 Frequency: 5 times per week Estimated Hrs Per Day: .5 hour per day Rehab Potential: Fair Barriers to Learning: Patient's medical status including mental illness Pt/Family Agrees to Plan: Yes Safety Risks/Education Teaching Recipient: Patient Teaching Methods: Discussion Response to Teaching: Verbalize Understanding Education Topics Provided: Continued safety Time Speech Therapy Time In: 11:00 Speech Therapy Time Out: 11:15 Total Billed Time: 15 Billed Treatment Time 1, SLTS No QUALITY CODES: EXPRESSION OF IDEAS/WANTS: 4 UNDERSTANDING VERBAL CONTENT: 4 BRIEF INTERVIEW MENTAL STATUS: YES REPETITION OF 3 WORDS: 3 TEMPORAL ORIENTATION: YEAR: CORRECT, MONTH: CORRECT, DAY: INCORRECT RECALL: SOCK: YES WITH CUE, COLOR: YES, BED: YES WITH CUE MEMORY/RECALL ABILITY: SEASON, THAT SHE IS IN THE HOSPITAL RUSSELL LIMON Dec 18, 2019 11:46
--- NOTE | 2019-12-18 12:45 | NUR ---
DR. RAMÍREZ TO THE FLOOR. NO NEED FOR PATIENT TO BE ON URECHOLINE AND FLOMAX IF LEAVING THE CATHETER IN PLACE. ORDERS TO DC BOTH MEDS.
--- NOTE | 2019-12-18 15:14 | NUR ---
CM/SS ADMISSION / DISCHARGE Patient was admitted to [facility] afternoon 12/15/19 from [facility] post op for left hip fracture. Patient apparently fell at home suffering hip fracture 12/05/19. After repair, she was placed in her hometown at [facility]. She suffered another fall with dislocation and fracture during attempted reduction in [facility] ER requiring repeat repair 12/12/19 at [facility]. Additional comorbidities, in part, that influence discharge planning are severe bipolar mental illness, anorexia nervosa, severe malnutrition, severe anemia with refusal of blood products due to episcopalian/Jehovah Witnesses, immunosuppressed. Met with patient today after update from physician and therapy team. It appears the patient's overall condition and functional status are such that she is unable to actively participate and benefit significantly from the ARU program regime. Housing Grant Analyst visited with patient about this dilemma and offered a return to her most recent Medicare skilled placement with [facility]. Patient was in agreement to this arrangement. Housing Grant Analyst completed referral with [facility] Admin/[place] and after review, they confirmed they would accept patient tomorrow. Housing Grant Analyst has informed Unit RN, physician, and Woodyard Crane Operator that patient will be picked up in a.m. at 0900. Contacted patient's son, Fredrick Mills, in [place]. After lengthy discussion about his concerns whether patient is competent to make mental, medical, life safety decisions, recommended Fredrick inquire about legal guardianship process. He resides in [place], [facility] Advised Fredrick to include this detail in his inquiry because Petition for Letters of Guardianship and Conservatorship would have to be filed in patient's [facility] and State of residence. Patient's PCP listed is [facility] SEK Dr. Kim Patel; however, when patient admitted to SNF, Dr. Patel signed off for that interim because she does not make NH rounds. Dr. Monge is indicated as Variety Saw Operator there, confirmed he is the accepting physician. CONTACTS: Fredrick Mills, son [address] [place] [address] Patient has a daughter residing in [place], name not known. Fredrick indicates he is the primary family member who has maintained a relationship with patient. Discharge arranged for a.m.
--- NOTE | 2019-12-18 17:01 | PM&R Progress Note ---
Subjective HPI/CC On Admission Date Seen by Provider: Dec 18, 2019 Time Seen by Provider: 08:15 Subjective/Events-last exam Patient failing IRF protocol and [facility] has accepted back tomorrow even after she accused them of dropping her on the floor and considering her mental illness and documented delusions I am unclear what the situation was at that time Patient has no motivation and is in such poor health is does not appear she can be successful in a rehab so hopefully she can be successful in a slower environment Dr Russell has attempted to help her and gave her Epo Wednesday along with the IV venofer to help build hgb since she refuses blood transfusion due to JW congregation Mental illness and anorexia with very poor status makes it likely she is heading towards Hospice Not eating or drinking well so will continue IVF until DC Rocephin for UTI hayden still in place Conferred with RN Reviewed therapy notes Checked meds and labs Focused Exam Lactate Level Objective Exam Vital Signs Vital Signs Date Time Temp Pulse Resp B/P (MAP) Pulse Ox O2 Delivery O2 Flow Rate FiO2 12/18/19 17:43 36.6 105 18 107/67 (80) 97 Room Air Capillary Refill : Less Than 3 SecondsLess Than 3 Seconds General Appearance: No Apparent Distress, Anxious, Chronically ill, Cachetic, Other (fernandez, pale, frail) HEENT: PERRL/EOMI, Normal ENT Inspection, Pharynx Normal Neck: Full Range of Motion, Normal Inspection, Non Tender, Supple, Carotid Bruit Respiratory: Chest Non Tender, Lungs Clear, Normal Breath Sounds, No Accessory Muscle Use, No Respiratory Distress Cardiovascular: Regular Rate, Rhythm, No Edema, No Gallop, No JVD, No Murmur, Normal Peripheral Pulses, Tachycardia Gastrointestinal: Normal Bowel Sounds, No Organomegaly, No Pulsatile Mass, Non Tender, Soft Back: Normal Inspection, No CVA Tenderness, No Vertebral Tenderness Extremity: Normal Capillary Refill, Normal Inspection, Normal Range of Motion, Non Tender, No Calf Tenderness, No Pedal Edema Neurologic/Psychiatric: Alert, Oriented x3, No Motor/Sensory Deficits, Normal Mood/Affect, 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 [facility]IM Transfers Therapy Code Descriptions/Definitions Functional [place] Measure: 0=Not Assessed/NA 4=Minimal Assistance 1=Total Assistance 5=Supervision or Setup 2=Maximal Assistance 6=Modified [place] 3=Moderate Assistance 7=Complete IndependenceSCALE: Activities may be completed with or without assistive devices. 4-Lsgksghyvb-bjvhfha completes the activity by him/herself with no assistance from a helper. 5-Set-up or Clean-up Assistance-helper sets up or cleans up; patient completes activity. [place] assists only prior to or following the activity. 4-Supervision or Touching Assistance-helper provides verbal cues and/or touching/steadying and/or contact guard assistance as patient completes activity. Assistance may be provided throughout the activity or intermittently. 3-Partial/Moderate Assistance-helper does LESS THAN HALF the effort. [place] lifts, holds or supports trunk or limbs, but provides less than half the effort. 2-Substantial/Maximal Assistance-helper does MORE THAN HALF the effort. [place] lifts or holds trunk or limbs and provides more than half the effort. 7-Hvvqidbwq-oxakrj does ALL the effort. Patient does none of the effort to complete the activity. Or, the assistance of 2 or more helpers is required for the patient to complete the activity. If activity was not attempted, code reason: 7-Patient Refused. 9-Not Applicable-not attempted and the patient did not perform the activity before the current illness, exacerbation or injury. 10-Not Attempted due to Environmental Limitations-(lack of equipment, weather restraints, etc.). 88-Not Attempted due to Medical Conditions or Safety Concerns. Roll Left to Right (QC): 2 Sit to Lying (QC): 3 Sit to Stand (QC): 3 Chair/Xua-my-Srvyg Xfer(QC): 2 Car Transfer (QC): 1 Gait Training Does the Patient Walk?: No and Walking Goal IS indicated Walk 10 feet (QC): 88 Walk 50 ft with 2 Turns(QC): 88 Walk 150 ft (QC): 88 Walking 10ft/uneven surface-QC: 88 Gait Assistive Device: FWW Wheelchair Training Does the Pt Use a Wheelchair?: Yes Distance: 10' Wheel 50 ft with 2 turns (QC): 88 Wheel 150 ft (QC): 88 Type of Wheelchair: Manual Stair Training 1 Step (curb) (QC): 88 4 Steps (QC): 88 12 Steps (QC): 88 Balance Picking up an Object (QC): 88 ADL-Treatment Eating (QC): 6 Oral Hygiene (QC): 3 (Pt requires OT s/u as she is unable to unscrew toothpaste and pinch to place on toothbrush. Pt able to bring to mouth and brush teeth, requires min A for thoroughness- pt able to hold container to spit, requires OT bring water to mouth due to usage of hands.) Bathing Location: R Lower Leg (including foot), Chest Shower/Bathe Self (QC): 2 (max A- TD feet, education of precautions, requires assist with bottom/ vinh hygiene. Completes UB washing in bed with max A, rolls to complete back washing. Denies UB dressing.) Upper Body Dressing (QC): 7 Lower Body Dressing (QC): 1 (max A- 2 person assist, 1 for stance and 1 for LB dressing.) On/Off Footwear (QC): 2 (use of sock aide- pt educated on, requires cues throughout) Toileting Hygiene (QC): 1 (TD (max Ax2 for stance and to wipe)) Toilet Transfer (QC): 1 (max A x2) Assessment/Plan Assessment and Plan Assess & Plan/Chief Complaint Assessment: s/p left hip fracture 12/05/19 then s/p fall with dislocation and fracture during attempted reduction in [facility] ER requiring repeat repair 12/12/19 [facility] Severe bipolar mental illness Anorexia Nervosa restricting type Severe malnutrition Urinary retention requiring hayden cath consulted Urology Anemia severe iron deficient type starting Venofer after midline placed JW refuses blood products with severe anemia RA hx of cervical cancer Prednisone dependency Immunosuppressed Delirium Tachycardia seems to be chronic Hemorrhoids Blisters around rectum placed on Valtrex in case herpes Plan: IVF since she appears dehydrated and tachycardic will continue that Monitor labs Pain meds Anusol prn Valtrex Urology consultation Hematology consultation BM regimen Monitor closely especially confusion ML fpc placement tomorrow (1) Hip fracture, left (2) Refusal of blood transfusions as patient is Lutheran (3) Anemia (4) Iron deficiency (5) Bipolar 1 disorder, mixed (6) Anorexia nervosa, restricting type (7) Malnutrition (8) Urinary retention (9) Hayden catheter in place (10) Constipation (11) Dehydration (12) Tachycardia (13) Falls frequently (14) Cachexia (15) Rheumatoid arthritis (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
[2019-12-18 17:43] VITALS: BP 107/67
[2019-12-18] MEDS: cefTRIAXone FOR IV USE 1,000 MG in WATER (STERILE) FOR INJECTION 10 ML IV SCH (17:57)
[2019-12-19] MEDS: ALPRAZolam 0.25 MG (XANAX) TAB PO PRN ×2 (00:26→09:21)
[2019-12-19] MEDS: NS IV 1000 ML 1,000 ML IV SCH (04:42)
[2019-12-19] MEDS: CYANOCOBALAMIN 1,000 MCG (VITAMIN B-12) TABLET PO SCH (05:53)
[2019-12-19] MEDS: ASPIRIN 81 MG CHEW (CHILDREN'S ASA) PO SCH (05:54)
[2019-12-19 06:00] VITALS: BP 118/70
--- NOTE | 2019-12-19 06:11 | NUR ---
THIS RN CHANGED PT THIS AM AT APPROX 0530 AND SHE HAD BRIGHT RED BLOOD IN BRIEF, WITH SOME BOWEL MOVEMENT WELL. WHEN PT WAS TURNED IN BED SMALL AMOUNTS OF BLOOD RAN OUT OF BOTTOM. SKIN TO AREA IS INTACT. BARRIER CREAM APPLIED. THIS NURSE SHIFT SUPERINTENDENT CAUSTIC CRESYLATE WAS NOT ABLE TO VISUALIZE ANY HEMMORRHOIDS AROUND THE OUTSIDE OF THE ANUS. THERE WAS A SMALL AMOUNT OF SOFT BOWEL MOVEMENT THAT DID COME OUT. THIS RN DID HOLD MORNING ASPIRIN [address] JUAREZ.
--- NOTE | 2019-12-19 06:54 | NUR ---
DR JUAREZ REPLIED TO THIS NURSE BALLOON SELLER TO ORDER CBC AND CMP ALONG WITH SURGERY CONSULT. DR JUAREZ SAID SHE WOULD CONTACT SURGEON. THIS NURSE BALLOON SELLER LET HER KNOW FABI WAS ON TILL 7 AM AND THEN CAITLIN WAS ON TODAY. THIS RN ORDERED CMP AND CBC.
[2019-12-19 07:42] LABS: BASOPHILS # (AUTO) 0.1 10^3/uL (0.0-0.1); BASOPHILS % (AUTO) 1 % (0-10); EOSINOPHILS # (AUTO) 0.3 10^3/uL (0.0-0.3); EOSINOPHILS % (AUTO) 3 % (0-10); HEMATOCRIT 24 % (35-52); HEMOGLOBIN 7.5 G/DL (11.5-16.0); LYMPHOCYTES # (AUTO) 1.4 X 10^3 (1.0-4.0); LYMPHOCYTES % (AUTO) 13 % (12-44); MEAN CORPUSCULAR HEMOGLOBIN 32 PG (25-34); MEAN CORPUSCULAR HGB CONC 31 G/DL (32-36); MEAN CORPUSCULAR VOLUME 103 FL (80-99); MEAN PLATELET VOLUME 7.6 FL (7.4-10.4); MONOCYTES # (AUTO) 1.1 X 10^3 (0.0-1.0); MONOCYTES % (AUTO) 11 % (0-12); NEUTROPHILS # (AUTO) 7.6 X 10^3 (1.8-7.8); NEUTROPHILS % (AUTO) 72 % (42-75); PLATELET COUNT 629 10^3/uL (130-400); RED CELL DISTRIBUTION WIDTH 17.5 % (10.0-14.5); WHITE BLOOD COUNT 10.5 10^3/uL (4.3-11.0)
[2019-12-19 07:45] LABS: SMEAR SCAN COMMENT YES
[2019-12-19] MEDS: VALACYCLOVIR 500 MG TAB (VALTREX) PO SCH ×2 (07:54→13:13)
[2019-12-19] MEDS: PANTOPRAZOLE 40 MG (PROTONIX) TAB PO SCH ×2 (07:54→08:42)
[2019-12-19] MEDS: risperiDONE 0.25 MG (RisperDAL) TAB PO SCH (07:54)
[2019-12-19] MEDS: predniSONE 5 MG TAB PO SCH (07:55)
[2019-12-19] MEDS: FOLIC ACID 1 MG TAB PO SCH (07:55)
[2019-12-19] MEDS: LACTULOSE SYRUP 10GM/15ML (ENULOSE) 30ML UDC PO SCH (07:56)
[2019-12-19] MEDS: polyethylene glycoL POWDER 17 GM (MIRALAX) PACK PO SCH (07:56)
[2019-12-19] MEDS: METHOCARBAMOL 750 MG (ROBAXIN) TAB PO SCH ×2 (07:56→13:13)
[2019-12-19] MEDS: SENNA W/DOCUSATE (SENOKOT S) TABLET PO SCH (07:58)
[2019-12-19] MEDS: HYDROCORTISONE 2.5% CREAM (ANUSOL-HC) 30 GM TOP SCH (07:59)
[2019-12-19] MEDS: DOCUSATE SODIUM 100 MG (COLACE) CAP PO SCH (07:59)
[2019-12-19] MEDS: IRON SUCROSE 200 MG/10 ML (VENOFER) VIAL IV SCH (08:00)
[2019-12-19 08:04] VITALS: BP 98/58
[2019-12-19 08:17] LABS: ALANINE AMINOTRANSFERASE 28 U/L (0-55); ALBUMIN 2.4 GM/DL (3.2-4.5); ALKALINE PHOSPHATASE 86 U/L (40-136); BILIRUBIN,TOTAL 0.2 MG/DL (0.1-1.0); BUN/CREATININE RATIO 8; CALCIUM 7.8 MG/DL (8.5-10.1); CARBON DIOXIDE 23 MMOL/L (21-32); CHLORIDE 105 MMOL/L (98-107); CREATININE SERUM 0.61 MG/DL (0.60-1.30); GFR ESTIMATED > 60; GLUCOSE 102 MG/DL (70-105); POTASSIUM 3.7 MMOL/L (3.6-5.0); SODIUM 136 MMOL/L (135-145); TOTAL PROTEIN 4.6 GM/DL (6.4-8.2)
--- NOTE | 2019-12-19 09:21 | NUR ---
DR. JUAREZ TO THE FLOOR. INFORMED OF FEVER- 37.8 (100.04) AND DECREASED BP- 98/58, HR 109. ALSO INFORMED OF HGB 7.5, LABIA SWOLLEN, AND DARK RED BLOOD FROM RECTUM.
[2019-12-19] MEDS ORDERED: PANT40TA2 PO (09:46)
[2019-12-19] MEDS ORDERED: ALPR0.254 PO (09:46)
--- NOTE | 2019-12-19 10:22 | Discharge Inst-Skilled Nursing ---
Discharge Inst-Skilled NF Reconcile Patient Problems Problems Reviewed?: Yes Patient Instructions Patient Problems: Assessment: s/p left hip fracture 12/05/19 then s/p fall with dislocation and fracture during attempted reduction in [facility] ER requiring repeat repair 12/12/19 [facility] Severe bipolar mental illness Anorexia Nervosa restricting type Severe malnutrition Urinary retention requiring hayden cath consulted Urology Anemia severe iron deficient type starting Venofer after midline placed JW refuses blood products with severe anemia RA hx of cervical cancer Prednisone dependency Immunosuppressed Delirium Tachycardia seems to be chronic Hemorrhoids Blisters around rectum placed on Valtrex in case herpes Plan: IVF since she appears dehydrated and tachycardic will continue that Monitor labs Pain meds Anusol prn Valtrex Urology consultation Hematology consultation BM regimen Monitor closely especially confusion ML detention placement tomorrow (1) Hip fracture, left (2) Refusal of blood transfusions as patient is Quaker (3) Anemia (4) Iron deficiency (5) Bipolar 1 disorder, mixed (6) Anorexia nervosa, restricting type (7) Malnutrition (8) Urinary retention (9) Hayden catheter in place (10) Constipation (11) Dehydration (12) Tachycardia (13) Falls frequently (14) Cachexia (15) Rheumatoid arthritis (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 [facility] Facility Order: Nursing Services, [facility] Resource Planner-Evaluate & Treat, Physical Therapy-Evaluate & Treat, Speech Language-Evaluate & Treat, Wound Care-Eval/Treat Oxygen Delivery Method: Room Air Discharge Diet: Regular Diet Resuscitation Status: Do Not Resuscitate New & Resume Previous Orders New Medications: Pantoprazole Sodium (Protonix) 40 Mg Tablet. 40 MG PO DAILY, #30 TAB Alprazolam (Alprazolam) 0.25 Mg Tablet 0.25 MG PO Q8H PRN for ANXIETY, #30 TAB Cyanocobalamin (Vitamin B-12) (Vitamin B-12) 1,000 Mcg Tablet 1000 MCG PO DAILY@0700 for 30 Days, TAB Hydrocortisone (Proctozone-Hc) 30 Gm Cream.appl 0 GM TOP BID for 14 Days, APPLIC Valacyclovir HCl (Valtrex) 500 Mg Tablet 1000 MG PO TID for 4 Days, TAB Continued Medications: Acetaminophen (Tylenol) 325 Mg Tablet 650 MG PO Q4H PRN for PAIN-MILD (1-4), TAB Bisacodyl (Bisacodyl) 10 Mg Supp.rect 10 MG RC DAILY PRN for CONSTIPATION-4TH LINE, SUPP.RECT Estradiol (Climara Patch Weekly 0.05mg/hr) 1 Each Patch.tdwk 1 EACH TD Weekly, PATCH Ferrous Gluconate (Ferrous Gluconate) 324 Mg Tablet 324 MG PO DAILY W/ BREAKFAST, TAB Folic Acid (Folic Acid) 1 Mg Tablet 1 MG PO DAILY, TAB Lamotrigine (Lamictal) 150 Mg Tablet 300 MG PO DAILY, TAB Magnesium Hydroxide (Milk of Magnesia) 2,400 Mg/10 Ml Oral.susp 10 MG PO DAILY PRN for CONSTIPATION-7TH LINE, ML Methocarbamol (Methocarbamol) 750 Mg Tablet 750 MG PO TID for Back Pain, TAB Oxycodone HCl (Roxicodone) 5 Mg Tablet 5-10 MG PO Q4H PRN for PAIN-SEVERE (8-10), #30 TAB (This prescription has been renewed) Polyethylene Glycol 3350 (Miralax) 17 Gm Powd.pack 17 GM PO DAILY, EACH Prednisone (Prednisone) 5 Mg Tablet 7.5 MG PO DAILY W/ BREAKFAST, TAB Sennosides/Docusate Sodium (Senna S Tablet) 1 Each Tablet 1 EACH PO BID, TAB Discontinued Medications: Aspirin (Aspirin) 81 Mg Tab.chew 81 MG PO BID WITH MEALS for 35 Days, TAB TAKE FOR 35 DAYS Methotrexate Sodium (Methotrexate) 2.5 Mg Tablet 15 MG PO WEEK, TAB HOLD FOR 1 MONTH STARTING 12-15-2019 TAKES 6 (2.5MG) TABS ONCE WEEKLY Jennifer Juarez Dec 19, 2019 10:17 JENNIFER JUAREZ DO Dec 19, 2019 10:22
--- NOTE | 2019-12-19 11:43 | Discharge Summary ---
Diagnosis/Chief Complaint Date of Admission Dec 15, 2019 at 12:30 Date of Discharge Discharge Date: Dec 19, 2019 Discharge Time: 0900 Discharge Diagnosis Assessment: s/p left hip fracture 12/05/19 then s/p fall with dislocation and fracture during attempted reduction in [facility] ER requiring repeat repair 12/12/19 [facility] Severe bipolar mental illness Anorexia Nervosa restricting type Severe malnutrition Urinary retention requiring hayden cath consulted Urology Anemia severe iron deficient type starting Venofer after midline placed JW refuses blood products with severe anemia RA hx of cervical cancer Prednisone dependency Immunosuppressed Delirium Tachycardia seems to be chronic Hemorrhoids Blisters around rectum placed on Valtrex in case herpes Rectal bleeding on day of DC but refusing blood products and likely will need Hospice due to end of life status Plan: IVF HL before DC Monitor labs Pain meds Anusol prn Valtrex Urology consultation Hematology consultation BM regimen Monitor closely especially confusion Needs ML intermediate placement and updated son on likely needs Hospice if fails skilled care (1) Hip fracture, left (2) Refusal of blood transfusions as patient is Buddhism (3) Anemia (4) Iron deficiency (5) Bipolar 1 disorder, mixed (6) Anorexia nervosa, restricting type (7) Malnutrition (8) Urinary retention (9) Hayden catheter in place (10) Constipation (11) Dehydration (12) Tachycardia (13) Falls frequently (14) Cachexia (15) Rheumatoid arthritis (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 (17) Immunosuppressed status (18) History of cervical cancer (19) DVT prophylaxis Discharge Summary Discharge Physical Examination Allergies: Coded Allergies: prochlorperazine (Verified Allergy, Unknown, 11/29/19) Vitals & I&Os Vital Signs Date Time Temp Pulse Resp B/P (MAP) Pulse Ox O2 Delivery O2 Flow Rate FiO2 12/19/19 14:24 37.8 127 18 122/76 97 Room Air Hospital Course Was the Problem List Reviewed?: Yes Hospital course: patient had a short course in IRF due to such severe debility and poor reserve from admit on Wednesday from [facility] from severe mental illness and severe anorexia for 42 years causing severe malnutrition and 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 Patient refused to participate in most therapies during her short stay and required close monitoring and lab trends along with Hematology consultation and was given Epo and IV iron infusions Wednesday due to severe anemia from acute blood loss from hip fracture repair x 2 within 2 weeks. I had multiple conversations with her son on day of DC after she began having some rectal bleeding and Dr Gomez saw her in consultation and assessed her to be so weak she would be unable to tolerate conscious sedation to undergo any type of endoscopy and agreed this patient was a hospice candidate if she failed a slower [facility]. PPI placed on med list and first dose given prior to DC and patient was DC in stable but guarded condition and I predict her to ultimately failing skilled care and needing emergent hospice enrollment and son was aware of this prediction and agreed with the plan along with other consultants and health care providers. Pain med Rx given at DC along with Xanax for anxiety. Labs (last 24 hrs) Laboratory Tests 12/15/19 12:30: Lab Scanned Report Referred Lab Report 12/15/19 13:50: White Blood Count 16.8H, Red Blood Count 2.62L, Hemoglobin 8.2#L, Hematocrit 26L , Mean Corpuscular Volume 100H, Mean Corpuscular Hemoglobin 31, Mean Corpuscular Hemoglobin Concent 31L, Red Cell Distribution Width 16.1H, Platelet Count 791H, Mean Platelet Volume 8.1, Neutrophils (%) (Auto) 92H, Lymphocytes (%) (Auto) 3L, Monocytes (%) (Auto) 5, Eosinophils (%) (Auto) 0, Basophils (%) (Auto) 0, Neutrophils # (Auto) 15.3H, Lymphocytes # (Auto) 0.5L, Monocytes # (Auto) 0.8, Eosinophils # (Auto) 0.1, Basophils # (Auto) 0.0, Sodium Level 135, Potassium Level 4.2, Chloride Level 101, Carbon Dioxide Level 21, Anion Gap 13, Blood Urea Nitrogen 11, Creatinine 0.72, Estimat Glomerular Filtration Rate > 60, BUN/Creatinine Ratio 15, Glucose Level 128H, Calcium Level 8.2L, Corrected Calcium 9.0, Iron Level 28L, Total Bilirubin 0.4, Aspartate Amino Transf (AST/SGOT) 52H, Alanine Aminotransferase (ALT/SGPT) 37, Alkaline Phosphatase 109, Total Protein 5.8L, Albumin 3.0L, Prealbumin 8.7L 12/15/19 17:10: Lactic Acid Level 0.96, Procalcitonin 0.36H 12/15/19 18:14: Urine Color YELLOW, Urine Clarity CLEAR, Urine pH 7.5, Urine Specific [place] 1.015L, Urine Protein NEGATIVE, Urine Glucose (UA) NEGATIVE, Urine Ketones NEGATIVE, Urine Nitrite NEGATIVE, Urine Bilirubin NEGATIVE, Urine Urobilinogen 0.2, Urine Leukocyte Esterase TRACEH, Urine RBC (Auto) TRACE-I, Urine RBC 2-5H, Urine WBC 2-5, Urine Squamous Epithelial Cells 2-5, Urine Crystals PRESENTH, Urine Amorphous Sediment FEW LOLIS PHOSPHATEH, Urine Bacteria FEWH, Urine Casts NONE, Urine Mucus NEGATIVE, Urine Culture Indicated CULTURE PENDING 12/16/19 07:20: White Blood Count 10.5, Red Blood Count 2.23L, Hemoglobin 7.1L, Hematocrit 22L, Mean Corpuscular Volume 100H, Mean Corpuscular Hemoglobin 32, Mean Corpuscular Hemoglobin Concent 32, Red Cell Distribution Width 16.4H, Platelet Count 692H, Mean Platelet Volume 7.7, Neutrophils (%) (Auto) 76H, Lymphocytes (%) (Auto) 12, Monocytes (%) (Auto) 9, Eosinophils (%) (Auto) 3, Basophils (%) (Auto) 1, N eutrophils # (Auto) 7.9H, Lymphocytes # (Auto) 1.3, Monocytes # (Auto) 0.9, Eosinophils # (Auto) 0.3, Basophils # (Auto) 0.1 12/16/19 08:20: Sodium Level 133L, Potassium Level 4.0, Chloride Level 101, Carbon Dioxide Level 22, Anion Gap 10, Blood Urea Nitrogen 9, Creatinine 0.61, Estimat Glomerular Filtration Rate > 60, BUN/Creatinine Ratio 15, Glucose Level 80, Calcium Level 7.9L, Corrected Calcium 9.1, Total Bilirubin 0.3, Aspartate Amino Transf (AST/SGOT) 39H, Alanine Aminotransferase (ALT/SGPT) 30, Alkaline Phosphatase 93, Total Protein 4.7L, Albumin 2.5L, Procalcitonin 0.32H 12/18/19 02:45: White Blood Count 10.4, Red Blood Count 2.06L, Hemoglobin 7.0L, Hematocrit 21L, Mean Corpuscular Volume 102H, Mean Corpuscular Hemoglobin 34, Mean Corpuscular Hemoglobin Concent 32, Red Cell Distribution Width 17.0H, Platelet Count 663H, Mean Platelet Volume 7.6, Neutrophils (%) (Auto) 74, Lymphocytes (%) (Auto) 12, Monocytes (%) (Auto) 11, Eosinophils (%) (Auto) 3, Basophils (%) (Auto) 1, Neutrophils # (Auto) 7.7, Lymphocytes # (Auto) 1.3, Monocytes # (Auto) 1.1H, Eosinophils # (Auto) 0.3, Basophils # (Auto) 0.1, Sodium Level 136, Potassium Level 3.9, Chloride Level 105, Carbon Dioxide Level 24, Anion Gap 7, Blood Urea Nitrogen 7, Creatinine 0.63, Estimat Glomerular Filtration Rate > 60, BUN/Creatinine Ratio 11, Glucose Level 94, Calcium Level 7.7L, Corrected Calcium 9.1, Total Bilirubin 0.2, Aspartate Amino Transf (AST/SGOT) 30, Alanine Aminotransferase (ALT/SGPT) 26, Alkaline Phosphatase 84, Total Protein 4.2L, Albumin 2.2L, Iron Level 36, Total Iron Binding Capacity 123L, Unsaturated Iron Binding Capacity 87, Transferrin % Saturation 29, Ferritin 2545.9H, Vitamin B12 Level 640, Folate 14.1 12/19/19 07:35: White Blood Count 10.5, Red Blood Count 2.34L, Hemoglobin 7.5L, Hematocrit 24L, Mean Corpuscular Volume 103H, Mean Corpuscular Hemoglobin 32, Mean Corpuscular Hemoglobin Concent 31L, Red Cell Distribution Width 17.5H, Platelet Count 629H, Mean Platelet Volume 7.6, Neutrophils (%) (Auto) 72, Lymphocytes (%) (Auto) 13, Monocytes (%) (Auto) 11, Eosinophils (%) (Auto) 3, Basophils (%) (Auto) 1, Neutrophils # (Auto) 7.6, Lymphocytes # (Auto) 1.4, Monocytes # (Auto) 1.1H, Eosinophils # (Auto) 0.3, Basophils # (Auto) 0.1, Sodium Level 136, Potassium Level 3.7, Chloride Level 105, Carbon Dioxide Level 23, Anion Gap 8, Blood Urea Nitrogen 5L, Creatinine 0.61, Estimat Glomerular Filtration Rate > 60, BUN/Creatinine Ratio 8, Glucose Level 102, Calcium Level 7.8L, Corrected Calcium 9.1, Total Bilirubin 0.2, Aspartate Amino Transf (AST/SGOT) 27, Alanine Aminotransferase (ALT/SGPT) 28, Alkaline Phosphatase 86, Total Protein 4.6L, Albumin 2.4L, Smear Scan YES Microbiology 12/15/19 Blood Culture - Preliminary, Resulted No growth 12/15/19 Urine Culture - Final, Complete NO GROWTH Pending Labs Microbiology Date/Time Source Procedure Growth Status 12/15/19 19:01 Peripheral Rt Ac Blood Culture - Preliminary No growth Resulted 12/15/19 19:01 Peripheral Lt Ac Blood Culture - Preliminary No growth Resulted 12/15/19 18:14 Urine U Cath,Nos Urine Culture - Final NO GROWTH Complete Laboratory Tests 12/15/19 12:30: Lab Scanned Report Referred Lab Report 12/15/19 13:50: White Blood Count 16.8, Red Blood Count 2.62, Hemoglobin 8.2, Hematocrit 26, Mean Corpuscular Volume 100, Mean Corpuscular Hemoglobin 31, Mean Corpuscular Hemoglobin Concent 31, Red Cell Distribution Width 16.1, Platelet Count 791, Mean Platelet Volume 8.1, Neutrophils (%) (Auto) 92, Lymphocytes (%) (Auto) 3, Monocytes (%) (Auto) 5, Eosinophils (%) (Auto) 0, Basophils (%) (Auto) 0, Neutrophils # (Auto) 15.3, Lymphocytes # (Auto) 0.5, Monocytes # (Auto) 0.8, Eosinophils # (Auto) 0.1, Basophils # (Auto) 0.0, Sodium Level 135, Potassium Level 4.2, Chloride Level 101, Carbon Dioxide Level 21, Anion Gap 13, Blood Urea Nitrogen 11, Creatinine 0.72, Estimat Glomerular Filtration Rate > 60, BUN/Creatinine Ratio 15, Glucose Level 128, Calcium Level 8.2, Corrected Calcium 9.0, Iron Level 28, Total Bilirubin 0.4, Aspartate Amino Transf (AST/SGOT) 52, Alanine Aminotransferase (ALT/SGPT) 37, Alkaline Phosphatase 109, Total Protein 5.8, Albumin 3.0, Prealbumin 8.7 12/15/19 17:10: Lactic Acid Level 0.96, Procalcitonin 0.36 12/15/19 18:14: Urine Color YELLOW, Urine Clarity CLEAR, Urine pH 7.5, Urine Specific [place] 1.015, Urine Protein NEGATIVE, Urine Glucose (UA) NEGATIVE, Urine Ketones NEGATIVE, Urine Nitrite NEGATIVE, Urine Bilirubin NEGATIVE, Urine Urobilinogen 0.2, Urine Leukocyte Esterase TRACE, Urine RBC (Auto) TRACE-I, Urine RBC 2-5, Urine WBC 2-5, Urine Squamous Epithelial Cells 2-5, Urine Crystals PRESENT, Urine Amorphous Sediment FEW LOLIS PHOSPHATE, Urine Bacteria FEW, Urine Casts NONE, Urine Mucus NEGATIVE, Urine Culture Indicated CULTURE PENDING 12/16/19 07:20: White Blood Count 10.5, Red Blood Count 2.23, Hemoglobin 7.1, Hematocrit 22, Mean Corpuscular Volume 100, Mean Corpuscular Hemoglobin 32, Mean Corpuscular Hemoglobin Concent 32, Red Cell Distribution Width 16.4, Platelet Count 692, Mean Platelet Volume 7.7, Neutrophils (%) (Auto) 76, Lymphocytes (%) (Auto) 12, Monocytes (%) (Auto) 9, Eosinophils (%) (Auto) 3, Basophils (%) (Auto) 1, Neutrophils # (Auto) 7.9, Lymphocytes # (Auto) 1.3, Monocytes # (Auto) 0.9, Eosinophils # (Auto) 0.3, Basophils # (Auto) 0.1 12/16/19 08:20: Sodium Level 133, Potassium Level 4.0, Chloride Level 101, Carbon Dioxide Level 22, Anion Gap 10, Blood Urea Nitrogen 9, Creatinine 0.61, Estimat Glomerular Filtration Rate > 60, BUN/Creatinine Ratio 15, Glucose Level 80, Calcium Level 7.9, Corrected Calcium 9.1, Total Bilirubin 0.3, Aspartate Amino Transf (AST/SGOT) 39, Alanine Aminotransferase (ALT/SGPT) 30, Alkaline Phosphatase 93, Total Protein 4.7, Albumin 2.5, Procalcitonin 0.32 12/18/19 02:45: White Blood Count 10.4, Red Blood Count 2.06, Hemoglobin 7.0, Hematocrit 21, Mean Corpuscular Volume 102, Mean Corpuscular Hemoglobin 34, Mean Corpuscular Hemoglobin Concent 32, Red Cell Distribution Width 17.0, Platelet Count 663, Mean Platelet Volume 7.6, Neutrophils (%) (Auto) 74, Lymphocytes (%) (Auto) 12, Monocytes (%) (Auto) 11, Eosinophils (%) (Auto) 3, Basophils (%) (Auto) 1, Neutrophils # (Auto) 7.7, Lymphocytes # (Auto) 1.3, Monocytes # (Auto) 1.1, Eosinophils # (Auto) 0.3, Basophils # (Auto) 0.1, Sodium Level 136, Potassium Level 3.9, Chloride Level 105, Carbon Dioxide Level 24, Anion Gap 7, Blood Urea Nitrogen 7, Creatinine 0.63, Estimat Glomerular Filtration Rate > 60, BUN/Creatinine Ratio 11, Glucose Level 94, Calcium Level 7.7, Corrected Calcium 9.1, Total Bilirubin 0.2, Aspartate Amino Transf (AST/SGOT) 30, Alanine Aminotransferase (ALT/SGPT) 26, Alkaline Phosphatase 84, Total Protein 4.2, Albumin 2.2, Iron Level 36, Total Iron Binding Capacity 123, Unsaturated Iron Binding Capacity 87, Transferrin % Saturation 29, Ferritin 2545.9, Vitamin B12 Level 640, Folate 14.1 12/19/19 07:35: White Blood Count 10.5, Red Blood Count 2.34, Hemoglobin 7.5, Hematocrit 24, Mean Corpuscular Volume 103, Mean Corpuscular Hemoglobin 32, Mean Corpuscular Hemoglobin Concent 31, Red Cell Distribution Width 17.5, Platelet Count 629, Mean Platelet Volume 7.6, Neutrophils (%) (Auto) 72, Lymphocytes (%) (Auto) 13, Monocytes (%) (Auto) 11, Eosinophils (%) (Auto) 3, Basophils (%) (Auto) 1, Neut rophils # (Auto) 7.6, Lymphocytes # (Auto) 1.4, Monocytes # (Auto) 1.1, Eosinophils # (Auto) 0.3, Basophils # (Auto) 0.1, Sodium Level 136, Potassium Level 3.7, Chloride Level 105, Carbon Dioxide Level 23, Anion Gap 8, Blood Urea Nitrogen 5, Creatinine 0.61, Estimat Glomerular Filtration Rate > 60, BUN/Creatinine Ratio 8, Glucose Level 102, Calcium Level 7.8, Corrected Calcium 9.1, Total Bilirubin 0.2, Aspartate Amino Transf (AST/SGOT) 27, Alanine Aminotransferase (ALT/SGPT) 28, Alkaline Phosphatase 86, Total Protein 4.6, Albumin 2.4, Smear Scan YES Discharge Home Medications: Active Scripts Active Protonix (Pantoprazole Sodium) 40 Mg Tablet.dr 40 Mg PO DAILY Alprazolam 0.25 Mg Tablet 0.25 Mg PO Q8H PRN Vitamin B-12 (Cyanocobalamin (Vitamin B-12)) 1,000 Mcg Tablet 1,000 Mcg PO DAILY@0700 30 Days Proctozone-Hc (Hydrocortisone) 30 Gm Cream.appl 0 Gm TOP BID 14 Days Valtrex (Valacyclovir HCl) 500 Mg Tablet 1,000 Mg PO TID 4 Days Roxicodone (Oxycodone HCl) 5 Mg Tablet 5-10 Mg PO Q4H PRN Reported Prednisone 5 Mg Tablet 7.5 Mg PO DAILY W/ BREAKFAST Miralax (Polyethylene Glycol 3350) 17 Gm Powd.pack 17 Gm PO DAILY Lamictal (Lamotrigine) 150 Mg Tablet 300 Mg PO DAILY Folic Acid 1 Mg Tablet 1 Mg PO DAILY Tylenol (Acetaminophen) 325 Mg Tablet 650 Mg PO Q4H PRN Senna S Tablet (Sennosides/Docusate Sodium) 1 Each Tablet 1 Each PO BID Milk of Magnesia (Magnesium Hydroxide) 2,400 Mg/10 Ml Oral.susp 10 Mg PO DAILY PRN Methocarbamol 750 Mg Tablet 750 Mg PO TID Ferrous Gluconate 324 Mg Tablet 324 Mg PO DAILY W/ BREAKFAST [place] Patch Weekly 0.05mg/hr (Estradiol) 1 Each Patch.tdwk 1 Each TD WEEKLY Bisacodyl 10 Mg Supp.rect 10 Mg RC DAILY PRN Instructions to patient/family Please see electronic discharge instructions given to patient. 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
--- NOTE | 2019-12-19 11:45 | NUR ---
DR. TUCKER IN TO SEE PATIENT. PLAN TO CONTINUE WITH DC TO SNF.
--- NOTE | 2019-12-19 11:55 | NUR ---
SHORTLY AFTER DR. TUCKER LEFT, THIS RN WAS CALLED TO THE PATIENT'S ROOM BY THERAPY. LARGE AMOUNT OF BRIGHT RED BLOOD FROM RECTUM NOTED. DR. TUCKER CALLED AND UPDATED. DR. JUAREZ ON THE FLOOR AND UPDATED. DR. JUAREZ CALLED PATIENT'S SON TO UPDATE. Addendum: 12/19/19 at 1333 by EARELNE MICHAEL RN T 37.8, BP 122/76, HR 127, 02 97% ON ROOM AIR. DR. JUAREZ AWARE.
--- NOTE | 2019-12-19 12:00 | NUR ---
ORDERS TO CONTINUE WITH DC TO [facility] ([facility]) PLANNED PER DR. JUAREZ.
--- NOTE | 2019-12-19 12:16 | Occupational Ther Daily Note ---
OT Current Status-Daily Note Subjective Pt seen in bed. Pt agrees to therapy. OT/ PT cotreatment due to pt's dependency on transfers and decreaseds trength and endurance/ cognition on this date which requires the skill of two therapists for safety. PT focused on transfers and large body movements as OT focused on ADLs, positioning, and cognition.Pt oriented to person and place, not situation. Pt expresses max pain in L hip, nursing notified and pt's medication administered. Mental Status/Objective Patient Orientation: Person, Place Attachments: IV ADL-Treatment Therapy Code Descriptions/Definitions Functional [place] Measure: 0=Not Assessed/NA 4=Minimal Assistance 1=Total Assistance 5=Supervision or Setup 2=Maximal Assistance 6=Modified [place] 3=Moderate Assistance 7=Complete IndependenceSCALE: Activities may be completed with or without assistive devices. 6-Kuxwhtrgcu-hljvahb completes the activity by him/herself with no assistance from a helper. 5-Set-up or Clean-up Assistance-helper sets up or cleans up; patient completes activity. [place] assists only prior to or following the activity. 4-Supervision or Touching Assistance-helper provides verbal cues and/or touching/steadying and/or contact guard assistance as patient completes activity. Assistance may be provided throughout the activity or intermittently. 3-Partial/Moderate Assistance-helper does LESS THAN HALF the effort. [place] lifts, holds or supports trunk or limbs, but provides less than half the effort. 2-Substantial/Maximal Assistance-helper does MORE THAN HALF the effort. [place] lifts or holds trunk or limbs and provides more than half the effort. 6-Pbvstmsub-yrrajg does ALL the effort. Patient does none of the effort to complete the activity. Or, the assistance of 2 or more helpers is required for the patient to complete the activity. If activity was not attempted, code reason: 7-Patient Refused. 9-Not Applicable-not attempted and the patient did not perform the activity before the current illness, exacerbation or injury. 10-Not Attempted due to Environmental Limitations-(lack of equipment, weather restraints, etc.). 88-Not Attempted due to Medical Conditions or Safety Concerns. Eating (QC): 4 (S/u (pt's RUE positioned in shoulder scaption for increased success with feeding tasks). S/u and intermittent assist for cutting food/ SUP.) Shower/Bathe Self (QC): 2 (Pt able to wash face and upper thigh. when cues to wash arm pit, pt washes face. Pt unable to point to arm pit when asked. Pt requires tactile cues for arm pit recognition.) Upper Body Dressing (QC): 2 (Pt unable to follow commands to doff/ don gown without max cues and max A) On/Off Footwear: 2 (max cues use of sock aide. ) Toileting Hygiene (QC): 1 Other Treatment Pt completes bed mob with max A. Sits EOB with mod A for righting at times. Pt states she feels like she is falling forward, she is leaning to R and backward. Sit to stand EOB with max A. Transfer to chair beside bed with TD (max A x2) pt completes sponge bath/ dressing in chair. Requires assist of pillow for upright position as pt leans to L side. Pt completes and transferred back to bed with TD. DO comes in to assess. PT/ OT return. Pt completes bed positioning, pt unable to state all precautions. Pt requires max A for positioning for comfort/ success while eating (above). Pt bleeding from rectum, nursing knows. TD for clean up assist. Pt left in room sitting upright in bed, food in front of pt, pt demonstrates ability to safely eat, call light wihtin reach. All needs met. Education OT Patient Education: Correct positioning, Modified ADL techniques Teaching Recipient: Patient Teaching Methods: Demonstration, Discussion Response to Teaching: Unable to Return Demonstration, Unable to Comprehend, Reinforcement Needed OT Short Term Goals Short Term Goals Time Frame: Dec 22, 2019 Eatin Oral hygiene: 5 Shower/bathe self: 3 OT Cash Applications Clerk Goals Cash Applications Clerk Goals Time Frame: Jan 05, 2020 Eating (QC): 6 Oral Hygiene (QC): 6 Toileting Hygiene (QC): 6 Shower/Bathe Self (QC): 6 Upper Body Dressing (QC): 6 Lower Body Dressing (QC): 6 On/Off Footwear (QC): 6 Additional Goals: 1-Demonstrate ADL Tasks, 2-Verbalize Understanding, 3-ImproveStrength/Connie 1=Demonstrate adherence to instructed precautions during ADL tasks. 2=Patient will verbalize/demonstrate understanding of assistive devices/modifications for ADL. 3=Patient will improve strength/tolerance for activity to enable patient to perform ADL's. OT Education/Plan Problem List/Assessment Assessment: Decreased Activ Tolerance, Decreased Safety Aware, Decreased UE Strength, Dependent Transfers, Edema, Impaired Bed Mobility, Impaired Cognition, Impaired Funct Balance, Impaired I ADL's, Impaired Self-Care Skills, Restricted Funct UE ROM Discharge Recommendations Plan/Recommendations: Continue POC Therapy Discharge Recommendati: 24 Hour Supervision Treatment Plan/Plan of Care Treatment,Training & Education: Yes Patient would benefit from OT for education, treatment and training to promote independence in ADL's, mobility, safety and/or upper extremity function for ADL's. Plan of Care: ADL Retraining, Functional Mobility, Group Exercise/Act as Ind, UE Funct Exercise/Act Treatment Duration: Jan 05, 2020 Frequency: At least 5 of 7 days/Wk (IRF) Estimated Hrs Per Day: 1.5 hours per day Agreement: Yes Rehab Potential: Fair Time/GCodes Start Time: 10:30 Stop Time: 12:00 Total Time Billed (hr/min): 90 Billed Treatment Time 1, ADL 6 (90) OT/ PT co-treat due to pt's decreased function, decreased endurance/ strength/ cognition, and dependence on transfers. PT focused on transfers and large body movements as OT focused on ADLs, positioning, and cognition. GARRISON PAREDES OTR Dec 19, 2019 12:16
[2019-12-19 12:27] VITALS: BP 122/76
--- NOTE | 2019-12-19 12:36 | NUR ---
REPORT TO RN AT [facility].
--- NOTE | 2019-12-19 12:57 | Consultation - Surgery ---
History of Present Illness History of Present Illness Patient Consulted On(courtney/time) 12/19/19 12:51 Time Seen by Provider: 11:23 History of Present Illness Surgery asked to consult regarding Anemia and Rectal Bleed. HPI per Oncology: Ms. Mills is a 64 yo female Mosque with rheumatoi d arthritis who was admitted to inpatient rehab yesterday 12/15/19 after left hip surgery. On admission, she was noted to have a hgb of 8.2 g/dl, which declined to 7.1 this morning. She had fallen on 11/29/19 after tripping on her dog and suffered from a subcapital left femur fracture. She was transferred to [facility] for surgery, which she had on 12/05/19. After discharge home, she slipped on water and fell again, dislocating her left hip on 12/12/19. After three unsuccessful external reduction attempts, she was transferred back to [facility] for surgery. Patient says her pain is well controlled currently but feels groggy. She is a poor historian. Although she is on methotrexate for her RA, she says her arthritis has generally been well controlled. She denies any bleeding, bruising, blood in her stools or urine. Denies headache, change in vision, numbness, paresthesias or focal weakness, chest pain, palpitations, shortness of breath, abdominal pain. When I spoke to pt this afternoon she appeared very weak and had had a small BM that only had a tinge of blood. She did not really want any procedures at this time. Just after I left, the nurse called me and stated she had large BM of almost all blood and some was very red. Allergies and Home Medications Allergies Coded Allergies: prochlorperazine (Verified Allergy, Unknown, 11/29/19) Home Medications Acetaminophen 325 Mg Tablet, 650 MG PO Q4H PRN for PAIN-MILD (1-4), (Reported) Alprazolam 0.25 Mg Tablet, 0.25 MG PO Q8H PRN for ANXIETY Prescribed by: DENI JUAREZ on 12/19/19 0946 Bisacodyl 10 Mg Supp.rect, 10 MG RC DAILY PRN for CONSTIPATION-4TH LINE, (Reported) Cyanocobalamin (Vitamin B-12) 1,000 Mcg Tablet, 1,000 MCG PO DAILY@0700 Prescribed by: DENI JUAREZ on 12/18/19918 Estradiol 1 Each Patch.tdwk, 1 EACH TD Weekly, (Reported) Ferrous Gluconate 324 Mg Tablet, 324 MG PO DAILY W/ BREAKFAST, (Reported) Folic Acid 1 Mg Tablet, 1 MG PO DAILY, (Reported) Hydrocortisone 30 Gm Cream.appl, 0 GM TOP BID Prescribed by: DENI JUAREZ on 12/18/19918 Lamotrigine 150 Mg Tablet, 300 MG PO DAILY, (Reported) Magnesium Hydroxide 2,400 Mg/10 Ml Oral.susp, 10 MG PO DAILY PRN for CONSTIPATION-7TH LINE, (Reported) Methocarbamol 750 Mg Tablet, 750 MG PO TID, (Reported) Oxycodone HCl 5 Mg Tablet, 5-10 MG PO Q4H PRN for PAIN-SEVERE (8-10) Prescribed by: DENI JUAREZ on 12/18/19918 Pantoprazole Sodium 40 Mg Tablet.dr, 40 MG PO DAILY Prescribed by: DENI JUAREZ on 12/19/19945 Polyethylene Glycol 3350 17 Gm Powd.pack, 17 GM PO DAILY, (Reported) Prednisone 5 Mg Tablet, 7.5 MG PO DAILY W/ BREAKFAST, (Reported) Sennosides/Docusate Sodium 1 Each Tablet, 1 EACH PO BID, (Reported) Valacyclovir HCl 500 Mg Tablet, 1,000 MG PO TID Prescribed by: DENI JUAREZ on 12/18/19918 Patient Home Medication List Home Medication List Reviewed: Yes Past Msjcaiu-Jknfvw-Ionjie Hx Patient Social History Alcohol Use: Regular Use Number of Drinks Today: 0 Recreational Drug Use: Yes (mj AND "OTHER REC. DRUGS.") Smoking Status: Never a Smoker 2nd Hand Smoke Exposure: No Recent Foreign Travel: No Contact w/Someone Who Travel: No Recent Infectious Disease Expo: No Recent Hopitalizations: Yes (L hip surgery discharged 7 days ago) Physical Abuse Screen: No Sexual Abuse: No Immunizations Up To Date Date of Pneumonia Vaccine: Aug 16, 2019 Date of Influenza Vaccine: Jul 12, 2019 Seasonal Allergies Seasonal Allergies: No Surgeries History of Surgeries: Yes (Left femur/hip surgery. ) Surgeries: Gallbladder, Hysterectomy, Orthopedic Respiratory History of Respiratory Disorde: No Cardiovascular History of Cardiac Disorders: No Neurological History of Neurological Disord: No Reproductive System : No Genitourinary History of Genitourinary Disor: No Gastrointestinal History of Gastrointestinal Di: Yes Gastrointestinal Disorders: Chronic Constipation, Gall Bladder Disease Musculoskeletal History of Musculoskeletal Dis: Yes Musculoskeletal Disorders: Fractures Endocrine History of Endocrine Disorders: No HEENT History of HEENT Disorders: No Cancer History of Cancer: Yes Cancer: Cervical Psychosocial History of Psychiatric Problem: Yes Behavioral Health Disorders: Eating Disorder, Anxiety, Bipolar, Depression Integumentary History of Skin or Integumenta: No Blood Transfusions History of Blood Disorders: No Family Medical History Significant Family History: Heart Disease (mother) Review of Systems-General Constitutional: malaise, weakness EENTM: blurred vision; No mouth pain, No epistaxis Respiratory: No cough; dyspnea on exertion; No hemoptysis Cardiovascular: No chest pain; edema Gastrointestinal: No abdominal pain, No nausea, No vomiting Genitourinary: No dysuria; frequency; No hematuria; incontinence Musculoskeletal: back pain, joint pain, joint swelling, muscle pain, muscle stiffness Skin: No change in color, No change in hair/nails Psychiatric/Neurological: Anxiety, Depressed; Denies Seizure, Denies Tremors Other pt denies hx of abnormal bleeding or bruising Physical Exam-General Problems Physical Exam Vital Signs Vital Signs - First Documented 12/15/19 12/15/19 12:30 13:20 Temp 37.0 Pulse 120 Resp 16 B/P (MAP) 107/67 Pulse Ox 95 O2 Delivery Room Air Capillary Refill : Less Than 3 SecondsLess Than 3 Seconds General Appearance: mild distress, cachetic Eyes: Bilateral Eye PERRL, Bilateral Eye EOMI HEENT: No scleral icterus (R), No scleral icterus (L); pale conjunctivae (R), pale conjunctivae (L), other (moist mucous membranes) Neck: supple; No thyromegaly Respiratory: lungs clear, no respiratory distress, no accessory muscle use Cardiovascular: no murmur, tachycardia Gastrointestinal: normal bowel sounds, non tender, soft, no organomegaly, no pulsatile mass Rectal: deferred Back: no CVA tenderness, no vertebral tenderness Extremities: no calf tenderness, pedal edema Neurologic/Psychiatric: alert, depressed affect Skin: warm/dry; No diaphoresis; pallor Lymphatic: no adenopathy (neck, axilla or groin) Data Review Labs Laboratory Tests 12/19/19 07:35: White Blood Count 10.5, Red Blood Count 2.34L, Hemoglobin 7.5L, Hematocrit 24L, Mean Corpuscular Volume 103H, Mean Corpuscular Hemoglobin 32, Mean Corpuscular Hemoglobin Concent 31L, Red Cell Distribution Width 17.5H, Platelet Count 629H, Mean Platelet Volume 7.6, Neutrophils (%) (Auto) 72, Lymphocytes (%) (Auto) 13, Monocytes (%) (Auto) 11, Eosinophils (%) (Auto) 3, Basophils (%) (Auto) 1, Neutrophils # (Auto) 7.6, Lymphocytes # (Auto) 1.4, Monocytes # (Auto) 1.1H, Eosinophils # (Auto) 0.3, Basophils # (Auto) 0.1, Sodium Level 136, Potassium Level 3.7, Chloride Level 105, Carbon Dioxide Level 23, Anion Gap 8, Blood Urea Nitrogen 5L, Creatinine 0.61, Estimat Glomerular Filtration Rate > 60, BUN/Creatinine Ratio 8, Glucose Level 102, Calcium Level 7.8L, Corrected Calcium 9.1, Total Bilirubin 0.2, Aspartate Amino Transf (AST/SGOT) 27, Alanine Aminotra nsferase (ALT/SGPT) 28, Alkaline Phosphatase 86, Total Protein 4.6L, Albumin 2.4L, Smear Scan YES Microbiology 12/15/19 Blood Culture - Preliminary, Resulted No growth 12/15/19 Urine Culture - Final, Complete NO GROWTH Assessment/Plan Assessment/Plan Assessment/Plan Anemia Rectal Bleed H/O rheumatoid arthritis S/P two left hip surgeries Patient has been given parenteral iron therapy, folic acid daily and Epopoetin. In addition to these measures, she should be put on daily vitamin B12. Methotrexate was stopped. Family has decided to send pt to Long-term SNF and if bleeding continues are going to make her Hospice. Clinical Quality Measures DVT/VTE Risk/Contraindication: Risk Factor Score Per Nursin RFS Level Per Nursing on Admit: 4+=Very High Contraindications-Pharm: Other *list below* Other: JW and severe anemia SHARDA TUCKER DO Dec 19, 2019 12:57
--- NOTE | 2019-12-19 13:13 | NUR ---
CM/SS DISCHARGE Patient discharged to Medicare SNF status at [facility] via their transport at 1330. SUMMARY: Multiple interactions with patient, home economics expert, Unit RN, [facility] Admin/Karen and DON/Jayashree Coe, and patient's son Fredrick Mills. Patient was assessed this a.m. by home economics expert and surgeon for rectal bleeding, see EMR progress notes. No interventions at this time based on physician findings, prognosis, patient's current overall status/frailty, and refusal of blood products as one of [employer]hov[employer]es. Approached patient again about an advanced medical directive and she indicated she already had one. Lengthy exploration produced that patient had a Durable Power of [place] for Health Care Decisions signed 11/29/19 naming agents/friends Zabrina Steward and Vu Kitchen, both of [facility]. Reviewed document with patient which was folded and in her wallet, confirmed she wished this document to remain in place with those chosen agents, and updated Zabrina on speaker phone with patient about current status and post hospital care plan. Updated [facility] Admin Karen of document. Zabrina has already called there to see about transferring patient back to [facility]. Treating Engineer advised Karen that any transfer would have to be medically warranted, would have to be a physician to physician referral, and [facility] would have to accept patient for direct admission. Karen to update Zabrina re same. Treating Engineer e-scanned copy of document to son Fredrick Mills, confirmed receipt.
--- NOTE | 2019-12-19 13:18 | Physical Therapy Daily Note ---
PT Daily Note-Current Subjective Pt seen in bed. Pt agrees to therapy. OT/ PT cotreatment due to pt's dependency on transfers and decreaseds trength and endurance/ cognition on this date which requires the skill of two therapists for safety. PT focused on transfers and large body movements as OT focused on ADLs, positioning, and cognition.Pt oriented to person and place, not situation. Pt expresses max pain in L hip, nursing notified and pt's medication administered. Pain Numeric Pain Scale: 9 Location: Left Location Body Site: Hip Comment: pt requesting and rcv'd pain med from nursing Appearance Pt in bed before and after therapy session, call light, phone and bedside table within reach Mental Status Patient Orientation: Person, Place, Eyes Open Attachments: IV Transfers SCALE: Activities may be completed with or without assistive devices. 3-Ubhynqnsfm-ybascmm completes the activity by him/herself with no assistance from a helper. 5-Set-up or Clean-up Assistance-helper sets up or cleans up; patient completes activity. [place] assists only prior to or following the activity. 4-Supervision or Touching Assistance-helper provides verbal cues and/or touching/steadying and/or contact guard assistance as patient completes activity. Assistance may be provided throughout the activity or intermittently. 3-Partial/Moderate Assistance-helper does LESS THAN HALF the effort. [place] lifts, holds or supports trunk or limbs, but provides less than half the effort. 2-Substantial/Maximal Assistance-helper does MORE THAN HALF the effort. [place] lifts or holds trunk or limbs and provides more than half the effort. 5-Hjjbszoga-wluxlp does ALL the effort. Patient does none of the effort to complete the activity. Or, the assistance of 2 or more helpers is required for the patient to complete the activity. If activity was not attempted, code reason: 7-Patient Refused. 9-Not Applicable-not attempted and the patient did not perform the activity before the current illness, exacerbation or injury. 10-Not Attempted due to Environmental Limitations-(lack of equipment, weather restraints, etc.). 88-Not Attempted due to Medical Conditions or Safety Concerns. Roll Left & Right (QC): 1 Sit to Lying (QC): 1 Lying to Sitting/Side of Bed(Q: 1 Sit to Stand (QC): 1 Chair/Iyk-uv-Djyla Xfer(QC): 1 Toilet Transfer (QC): 88 Car Transfer (QC): 88 2 person A required with all transitions Weight Bearing Right Lower Extremity: Right Full Weight Bearing Left Lower Extremity: Left Weight Bearing/Tolerated Gait Training Does the Patient Walk?: No and Walking Goal IS indicated Wheelchair Training Does the Pt Use a Wheelchair?: No Exercises Supine Ex: Ankle pumps, Rolling, Heel Slides, Short Arc Quads, Straight leg raise, Hip abd/add Supine Reps: 15 (AAROM to PROM) Treatments Pt completes bed mob with max A. Sits EOB with mod A of 2 for righting at times. Pt states she feels like she is falling forward, she is leaning to R and backward. Sit to stand EOB with max A of 2. Transfer to chair beside bed (max A x2) pt completes sponge bath/ dressing in chair. Requires assist of pillow for upright position as pt leans to L side. Pt completes and transferred back to bed with max A of 2. Pt completes bed positioning, pt unable to state all precautions. Pt requires max A for positioning for comfort/ success while eating (above). Pt bleeding from rectum, nursing and physician present and aware. TD for clean up assist. Pt left in room sitting upright in bed, food in front of pt, pt demonstrates ability to safely eat, call light within reach. All needs met. Assessment Current Status: Poor Progress OT/ PT co-treat due to pt's decreased function, decreased endurance/ strength/ cognition, and dependence on transfers. PT focused on transfers and large body movements as OT focused on ADLs, positioning, and cognition. PT Short Term Goals Short Term Goals Time Frame: Dec 30, 2019 Roll Left & Right: 3 Sit to lyin Lying to sitting on side of be: 3 Sit to stand: 3 Chair/yvm-uq-ignps transfer: 3 Toilet transfer: 3 Car transfer: 3 Walk 10 feet: 3 Walk 50 feet with two turns: 3 Walk 150 feet: 3 Walking 10ft on uneven surface: 3 1 step (curb): 3 4 steps: 3 12 steps: 9 Picking up objects: 4 Does pt use a wc or scooter: Yes Wheel 50ft w/2 turns: 4 Wheel 150 feet: 4 Type: Manual PT [facility] Goals Process Stripper Goals PT Process Stripper Goals Time Frame: Jan 19, 2020 Roll Left & Right (QC): 5 Sit to Lying (QC): 5 Lying-Sitting on Side/Bed(QC): 5 Sit to Stand (QC): 5 Chair/Ufw-ho-Agppz Xfer(QC): 5 Toilet Transfer (QC): 5 Car Transfer (QC): 5 Does the Patient Walk: Yes Walk 10 feet (QC): 5 Walk 50ft with 2 Turns (QC): 5 Walk 150 ft (QC): 5 Walking 10ft on Uneven Surface: 5 1 Step (curb) (QC): 5 4 Steps (QC): 5 12 Steps (QC): 9 Picking up an Object (QC): 5 Wheel 50 feet with 2 turns (QC: 88 Wheel 150 feet: 88 PT Plan Treatment/Plan Treatment Plan: Continue Plan of Care Treatment Plan: Bed Mobility, Concurrent Therapy, Education, Functional Activity Connie, Functional Strength, Group Therapy, Gait, Safety, Therapeutic Exercise, Transfers Treatment Duration: Jan 19, 2020 Frequency: At least 5 of 7 days/Wk (IRF) Estimated Hrs Per Day: 1.5 hours per day Patient and/or Family Agrees t: Yes Safety Risks/Education Patient Education: Transfer Techniques, Reviewed Precautions (pt unable to recall or recite after review), Correct Positioning (pt tends to keep LLE flexed and internally rotated requiring A to position in neutral and support with pillows), Safety Issues Teaching Recipient: Patient Teaching Methods: Demonstration, Discussion Response to Teaching: Unable to Return Demonstration, Unable to Comprehend, Reinforcement Needed Discharge Recommendations Therapy Discharge Recommendati: 24 Hour Supervision Time/GCodes Time In: 1030 Time Out: 1200 Total Billed Treatment Time: 90 (Co treat with OT x90 min) Total Billed Treatment 1 visit, FA x75 min, EX x15 DEEP WEEKS CASER Dec 19, 2019 13:18
[2019-12-19 14:24] VITALS: BP 122/76
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
--- NOTE | 2019-12-20 09:27 | Therapy Team Discharge Summary ---
Therapy Discharge Summary Discharge Recommendations Date of Discharge Dec 19, 2019 at 14:24 Physical Therapy Patient came to rehab with a left hip fracture. Upon evaluation patient was dependent for bed mobility and transfers and did not ambulate. Patient has been performing bed mobility and transfer training, functional strengthening. 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 Patient currently is still dependent for bed mobility and transfer, still no ambulation. Patient was discharged from this facility yesterday and will be dis charged from PT at this time. Occupational Therapy Decreased Activ Tolerance, Decreased Safety Aware, Decreased UE Strength, Dependent Transfers, Edema, Impaired Bed Mobility, Impaired Cognition, Impaired Funct Balance, Impaired I ADL's, Impaired Self-Care Skills, Restricted Funct UE ROM PT Electronic Health Records Specialist Goals Senior Care Goals PT Electronic Health Records Specialist Goals Time Frame: Jan 19, 2020 Roll Left to Right (QC): 5 Sit to Lying (QC): 5 Lying-Sitting on Side/Bed(QC): 5 Sit to Stand (QC): 5 Chair/Arf-pm-Prspe Xfer(QC): 5 Car Transfer (QC): 5 Does the Patient Walk: Yes Walk 10 feet (QC): 5 Walk 10ft-Uneven Surface(QC): 5 Walk 50ft with 2 Turns (QC): 5 Walk 150 ft (QC): 5 Wheel 50 feet with 2 turns (QC: 88 1 Step (curb) (QC): 5 4 Steps (QC): 5 12 Steps (QC): 9 Picking up an Object (QC): 5 OT Electronic Health Records Specialist Goals Electronic Health Records Specialist Goals Time Frame: Jan 05, 2020 Eating (QC): 6 Oral Hygiene (QC): 6 Shower/Bathe Self (QC): 6 Upper Body Dressing (QC): 6 Lower Body Dressing (QC): 6 On/Off Footwear (QC): 6 Toileting Hygiene (QC): 6 Toilet/Commode Transfer (QC): 5 Additional Goals: 1-Demonstrate ADL Tasks, 2-Verbalize Understanding, 3- ImproveStrength/Connie 1=Demonstrate adherence to instructed precautions during ADL tasks. 2=Patient will verbalize/demonstrate understanding of assistive devices/modifications for ADL. 3=Patient will improve strength/tolerance for activity to enable patient to perform ADL's. Speech Senior Care Goals Electronic Health Records Specialist Goals Patient will improve cognitive-communication necessary for safety and daily living tasks with minimal assist. AMIRA JORDAN PT Dec 20, 2019 09:27
[2019-12-21] MEDS ORDERED: ESTRADIOL TOP SCH (12:15)
--- NOTE | 2019-12-21 14:44 | Therapy Team Discharge Summary ---
Therapy Discharge Summary Discharge Recommendations Date of Discharge Dec 19, 2019 at 14:24 Occupational Therapy Pt admits with L hip ORIF. Pt admitting QCs: oral hygiene 5, showering 2, UB dress 5, LB dress 1, footwear 2, toileting 1. Pt and OT worked towards higher functional IND through ADL training and endurance, safety training. Pt limited by medical conditions. Pt d/c from ARU with no goals attained. No additional OT recommendations. D/c OT at this time. Decreased Activ Tolerance, Decreased Safety Aware, Decreased UE Strength, Dependent Transfers, Edema, Impaired Bed Mobility, Impaired Cognition, Impaired Funct Balance, Impaired I ADL's, Impaired Self-Care Skills, Restricted Funct UE ROM PT Prison Goals Commercial Account Officer Goals PT Prison Goals Time Frame: Jan 19, 2020 Roll Left to Right (QC): 5 Sit to Lying (QC): 5 Lying-Sitting on Side/Bed(QC): 5 Sit to Stand (QC): 5 Chair/Fci-km-Upwyi Xfer(QC): 5 Car Transfer (QC): 5 Does the Patient Walk: Yes Walk 10 feet (QC): 5 Walk 10ft-Uneven Surface(QC): 5 Walk 50ft with 2 Turns (QC): 5 Walk 150 ft (QC): 5 Wheel 50 feet with 2 turns (QC: 88 1 Step (curb) (QC): 5 4 Steps (QC): 5 12 Steps (QC): 9 Picking up an Object (QC): 5 OT Commercial Account Officer Goals Commercial Account Officer Goals Time Frame: Jan 05, 2020 Eating (QC): 6 Oral Hygiene (QC): 6 Shower/Bathe Self (QC): 6 Upper Body Dressing (QC): 6 Lower Body Dressing (QC): 6 On/Off Footwear (QC): 6 Toileting Hygiene (QC): 6 Toilet/Commode Transfer (QC): 5 Additional Goals: 1-Demonstrate ADL Tasks, 2-Verbalize Understanding, 3- ImproveStrength/Connie 1=Demonstrate adherence to instructed precautions during ADL tasks. 2=Patient will verbalize/demonstrate understanding of assistive devices/modifications for ADL. 3=Patient will improve strength/tolerance for activity to enable patient to perform ADL's. Speech Prison Goals Commercial Account Officer Goals Patient will improve cognitive-communication necessary for safety and daily living tasks with minimal assist. GARRISON PAREDES OTR Dec 21, 2019 14:44
[2019-12-26] MEDS ORDERED: FERROUS SULF 325 MG (IRON) TAB PO SCH (08:00)
[2020-01-15] MEDS ORDERED: METHOTREXATE 2.5 MG TAB PO SCH (09:00)
== END 2019-12-19 14:24 | DRG 559 ==
PROVIDERS: ADMIT Internal Medicine; ATTEND Internal Medicine
DX: M97.02XD Periprosthetic fracture around internal prosthetic left hip joint, subsequent encounter (principal); T84.021D Dislocation of internal left hip prosthesis, subsequent encounter; D62 Acute posthemorrhagic anemia; E43 Unspecified severe protein-calorie malnutrition; R64 Cachexia; F50.01 Anorexia nervosa, restricting type; K62.5 Hemorrhage of anus and rectum; R33.9 Retention of urine, unspecified; N31.9 Neuromuscular dysfunction of bladder, unspecified; E86.0 Dehydration; M06.9 Rheumatoid arthritis, unspecified; R00.0 Tachycardia, unspecified; F31.9 Bipolar disorder, unspecified; R41.0 Disorientation, unspecified; F41.9 Anxiety disorder, unspecified; K59.00 Constipation, unspecified; K64.9 Unspecified hemorrhoids; K62.89 Other specified diseases of anus and rectum; Z79.52 Long term (current) use of systemic steroids; Z90.710 Acquired absence of both cervix and uterus; Z87.891 Personal history of nicotine dependence; Z85.41 Personal history of malignant neoplasm of cervix uteri
CPT/HCPCS: 36415; 76937; 80053; 81000; 82607; 82728; 82746; 83540; 83605; 84134; 84145; 85025; 87040; 87088

== ENCOUNTER 2019-12-19 20:08 | Emergency (ER) | payer MEDICARE, OTHER ==
[~2019-12-19] VITALS: Ht 165.1 cm; Wt 63.0 kg
[~2019-12-19 20:08] MED LIST: ACET325T38 PO; ALPR0.254 PO; ASPI-999 PO; BISA10SU8 RC; Bethanechol Chl PO; CYAN-41 PO; ESTR1PAT72 TD; FERR324T PO; FOLI1TAB24 PO; HYDR30CR69 TOP; LAMO150T3 PO; METH2.5T PO; METH750T3 PO; MOM10U PO; OXYC-473 PO; PANT40TA2 PO; POLY17PO6 PO; PRED5TAB PO; SENN-145 PO; TMSL.4C PO; VALA500T4 PO
[2019-12-19] MEDS ORDERED: PANTOPRAZOLE INJECTION 200 MG in NS (IVPB) 100 ML IV SCH (20:15)
[2019-12-19] MEDS ORDERED: NS IV 1000 ML 1,000 ML IV SCH (20:15)
[2019-12-19] MEDS ORDERED: PANTOPRAZOLE 40 MG (PROTONIX) VIAL IV ONE (20:15)
--- NOTE | 2019-12-19 20:19 | ED GI ---
General Stated Complaint: GI BLEED Source of Information: Patient, EMS Exam Limitations: No Limitations History of Present Illness Date Seen by Provider: Dec 19, 2019 Time Seen by Provider: 20:05 Initial Comments The patient is a 64-year-old female from long-term brought in by EMS for evaluation of the GI bleed which started yesterday. The patient had a hip replacement about a week ago and then had a hip dislocation afterward and was discharged from the hospital today. snf staff noticed some significant rectal bleeding and also noted that she was very pale. She is not currently anticoagulated the likely received blood thinning medications in the hospital. The patient is noted to be a DO NOT RESUSCITATE and also a Jehovah witness. I clarified with the patient upon arrival and explained that her bleeding does appear that it could be life-threatening and the patient is adamant that she not receive any blood transfusion or blood products. She is pale and tachycardic upon arrival. A rectal exam is performed on arrival and there is no active bleeding noted but there are some blood and blood clots noted in the patient's diaper. She denies abdominal pain, back or flank pain, chest pain or shortness of breath, nausea or vomiting. She states that she feels cold. Severity/Quality: Severe Location: Other (rectal bleeding) Radiation: No Radiation Associated Symptoms: Denies Symptoms Allergies and Home Medications Allergies Coded Allergies: prochlorperazine (Verified Allergy, Unknown, 11/29/19) Home Medications Acetaminophen 325 Mg Tablet, 650 MG PO Q4H PRN for PAIN-MILD (1-4), (Reported) Alprazolam 0.25 Mg Tablet, 0.25 MG PO Q8H PRN for ANXIETY Prescribed by: DENI JUAREZ on 12/19/19 0946 Bisacodyl 10 Mg Supp.rect, 10 MG RC DAILY PRN for CONSTIPATION-4TH LINE, (Reported) Cyanocobalamin (Vitamin B-12) 1,000 Mcg Tablet, 1,000 MCG PO DAILY@0700 Prescribed by: DENI JUAREZ on 12/18/19 0919 Estradiol 1 Each Patch.tdwk, 1 EACH TD Weekly, (Reported) Ferrous Gluconate 324 Mg Tablet, 324 MG PO DAILY W/ BREAKFAST, (Reported) Folic Acid 1 Mg Tablet, 1 MG PO DAILY, (Reported) Hydrocortisone 30 Gm Cream.appl, 0 GM TOP BID Prescribed by: DENI JUAREZ on 12/18/19918 Lamotrigine 150 Mg Tablet, 300 MG PO DAILY, (Reported) Magnesium Hydroxide 2,400 Mg/10 Ml Oral.susp, 10 MG PO DAILY PRN for CON STIPATION-7TH LINE, (Reported) Methocarbamol 750 Mg Tablet, 750 MG PO TID, (Reported) Oxycodone HCl 5 Mg Tablet, 5-10 MG PO Q4H PRN for PAIN-SEVERE (8-10) Prescribed by: DENI JUAREZ on 12/18/19918 Pantoprazole Sodium 40 Mg Tablet.dr, 40 MG PO DAILY Prescribed by: DENI JUAREZ on 12/19/19945 Polyethylene Glycol 3350 17 Gm Powd.pack, 17 GM PO DAILY, (Reported) Prednisone 5 Mg Tablet, 7.5 MG PO DAILY W/ BREAKFAST, (Reported) Sennosides/Docusate Sodium 1 Each Tablet, 1 EACH PO BID, (Reported) Valacyclovir HCl 500 Mg Tablet, 1,000 MG PO TID Prescribed by: DENI JUAREZ on 12/18/19918 Patient Home Medication List Home Medication List Reviewed: Yes Review of Systems Review of Systems Constitutional: no symptoms reported EENTM: No Symptoms Reported Respiratory: No Symptoms Reported Cardiovascular: No Symptoms Reported, Other (tachycardia) Gastrointestinal: Rectal Bleeding Genitourinary: No Symptoms Reported Musculoskeletal: no symptoms reported Skin: other (pallor) Psychiatric/Neurological: No Symptoms Reported Endocrine: No Symptoms Reported Hematologic/Lymphatic: No Symptoms Reported All Other Systems Reviewed Negative Unless Noted: Yes Past Nngbclh-Sfbenp-Dtampn Hx Past Med/Social Hx: Reviewed Nursing Past Med/Soc Hx Patient Social History Alcohol Beverage of Choice: Wine 2nd Hand Smoke Exposure: No Recent Foreign Travel: No Recent Hopitalizations: Yes (L hip surgery discharged 7 days ago) Immunizations Up To Date Date of Pneumonia Vaccine: Aug 16, 2019 Date of Influenza Vaccine: Jul 12, 2019 Seasonal Allergies Seasonal Allergies: No Past Medical History Surgeries: Yes (Left femur/hip surgery. ) Gallbladder, Hysterectomy, Orthopedic Respiratory: No Cardiac: No Neurological: No Genitourinary: No Gastrointestinal: Yes Chronic Constipation, Gall Bladder Disease Musculoskeletal: Yes Fractures Endocrine: No HEENT: No Cancer: Yes Cervical Did You Recieve Any Treatments: Yes What Type of Treatment Did You: Surgical Intervention Psychosocial: Yes Eating Disorder, Anxiety, Bipolar, Depression Integumentary: No Blood Disorders: No Family Medical History Heart Disease Physical Exam Vital Signs Vital Signs - First Documented 12/19/19 20:49 Temp 36.2 Pulse 142 Resp 23 B/P (MAP) 92/36 (54) Pulse Ox 98 O2 Delivery Room Air Capillary Refill : Height/Weight/BMI Height: '" Weight: lbs. oz. kg; 19.22 BMI Method: General Appearance: WD/WN, no apparent distress Neck: non-tender, full range of motion Respiratory: lungs clear, normal breath sounds, no respiratory distress, no accessory muscle use Cardiovascular: no edema, no JVD, tachycardia Gastrointestinal: normal bowel sounds, non tender, soft, no pulsatile mass Genital/Rectal: other (bright red blood per rectum, some clots) Extremities: normal range of motion, normal inspection, no pedal edema Back: normal inspection, no CVA tenderness, no vertebral tenderness Neurologic/Psychiatric: no motor/sensory deficits, alert, normal mood/affect, oriented x 3 Skin: warm/dry, pallor Procedures/Interventions Patient Education: Explained Benefits, Explained Risks, Pt. Ack. Understanding Patient History: Problem w/Aneshesia Breath Sounds per Auscultation: Clear Heart Sounds per Auscultation: Regular Airway Exam: Mouth opens >2 fingers, Neck Full Range of Motion, Visulation of Uvula Progress/Results/Core Measures Results/Orders Lab Results Laboratory Tests Test 12/19/19 20:53 Range/Units White Blood Count 12.6 H 4.3-11.0 10^3/uL Red Blood Count 1.21 L 4.35-5.85 10^6/uL Hemoglobin 3.9 #*L 11.5-16.0 G/DL Hematocrit 13 *L 35-52 % Mean Corpuscular Volume 109 H 80-99 FL Mean Corpuscular Hemoglobin 32 25-34 PG Mean Corpuscular Hemoglobin Concent 30 L 32-36 G/DL Red Cell Distribution Width 17.8 H 10.0-14.5 % Platelet Count 471 H 130-400 10^3/uL Mean Platelet Volume 8.3 7.4-10.4 FL Neutrophils (%) (Auto) 76 H 42-75 % Lymphocytes (%) (Auto) 8 L 12-44 % Monocytes (%) (Auto) 11 0-12 % Eosinophils (%) (Auto) 1 0-10 % Basophils (%) (Auto) 0 0-10 % Neutrophils # (Auto) 9.6 H 1.8-7.8 X 10^3 Lymphocytes # (Auto) 1.1 1.0-4.0 X 10^3 Monocytes # (Auto) 1.3 H 0.0-1.0 X 10^3 Eosinophils # (Auto) 0.1 0.0-0.3 10^3/uL Basophils # (Auto) 0.0 0.0-0.1 10^3/uL Neutrophils % (Manual) 73 % Lymphocytes % (Manual) 14 % Monocytes % (Manual) 0 % Eosinophils % (Manual) 2 % Basophils % (Manual) 0 % Metamyelocytes % 3 % Myelocytes % 2 % Band Neutrophils 6 % Prothrombin Time 15.3 H 12.2-14.7 SEC INR Comment 1.2 0.8-1.4 Activated Partial Thromboplast Time 29 24-35 SEC Sodium Level 134 L 135-145 MMOL/L Potassium Level 4.1 3.6-5.0 MMOL/L Chloride Level 105 98-107 MMOL/L Carbon Dioxide Level 20 L 21-32 MMOL/L Anion Gap 9 5-14 MMOL/L Blood Urea Nitrogen 8 7-18 MG/DL Creatinine 0.73 0.60-1.30 MG/DL Estimat Glomerular Filtration Rate > 60 BUN/Creatinine Ratio 11 Glucose Level 137 H 70-105 MG/DL Calcium Level 6.7 L 8.5-10.1 MG/DL Corrected Calcium 8.9 8.5-10.1 MG/DL Total Bilirubin 0.2 0.1-1.0 MG/DL Aspartate Amino Transf (AST/SGOT) 17 5-34 U/L Alanine Aminotransferase (ALT/SGPT) 15 0-55 U/L Alkaline Phosphatase 58 40-136 U/L Total Protein 3.0 L 6.4-8.2 GM/DL Albumin 1.2 #L 3.2-4.5 GM/DL My Orders Orders - SHEY MCINTYRE DO Comprehensive Metabolic Panel (12/19/19 20:11) Ed Iv/Invasive Line Start (12/19/19 20:11) Cbc With Automated Diff (12/19/19 20:11) Protime With Inr (12/19/19 20:11) Partial Thromboplastin Time (12/19/19 20:11) Ns (Ivpb) (Sodium C... W/Pantoprazole In (12/19/19 20:15) Pantoprazole Injection (Protonix Injecti (12/19/19 20:15) Ns Iv 1000 Ml (Sodium Chloride 0.9%) (12/19/19 20:15) Oxygen-Administer 07,19 (12/19/19 20:24) Business Unit Leader (12/19/19 20:24) Continuous Pulse Ox (12/19/19 20:24) Manual Differential (12/19/19 20:53) Medications Given in ED Current Medications Medications Dose Ordered Sig/Lesley Route Start Time Stop Time Status Last Admin Dose Admin Pantoprazole 80 mg ONCE ONCE IV 12/19/19 20:15 12/19/19 20:16 DC 12/19/19 20:44 80 MG Vital Signs/I&O 12/19/19 20:49 Temp 36.2 Pulse 142 Resp 23 B/P (MAP) 92/36 (54) Pulse Ox 98 O2 Delivery Room Air Progress Progress Note : Progress Note @2113 - Hemoglobin is critically low at 3.9. The patient still does not want a blood transfusion. Her preferred transfer facility is as she was just discharged from there. transfer line at this time and they stated they will get a physician on the line and call back. @8 - calls back with ICU doctor. They were debating whether to admit the pt to the ICU or the floor. Considering the patient is unwilling to receive transfusion and maintaining her to the ICU does not seem necessary. 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 @2218 - Dr. Edmundo Valentine accepts the transfer to at this time. Awaiting report with FERCHO William and bed assignment. Departure Impression Primary Impression: Severe anemia Additional Impressions: Rectal bleeding Hypotension Refusal of blood transfusions as patient is Hinduism DNR (do not resuscitate) Disposition: 02 XFER SHT-TRM HOSP Condition: Critical Transfer Transfer Reason: Patient preference Transfer Progress Notes Dr. Edmundo Valentine accepts the transfer to at this time. Transfer Time: 22:19 Transfer Facility: Method of Transfer: EMS Departure-Patient Inst. Referrals: [facility] [place] (PCP/Family) Primary Care Physician SHEY MCINTYRE DO Dec 19, 2019 20:19
[2019-12-19 21:05] LABS: WHITE BLOOD COUNT 12.6 10^3/uL (4.3-11.0)
[2019-12-19 21:06] LABS: HEMOGLOBIN 3.9 G/DL (11.5-16.0); MEAN CORPUSCULAR HEMOGLOBIN 32 PG (25-34)
[2019-12-19 21:07] LABS: EOSINOPHILS % (AUTO) 1 % (0-10); HEMATOCRIT 13 % (35-52); LYMPHOCYTES % (AUTO) 8 % (12-44); MEAN CORPUSCULAR HGB CONC 30 G/DL (32-36); MEAN CORPUSCULAR VOLUME 109 FL (80-99); MEAN PLATELET VOLUME 8.3 FL (7.4-10.4); MONOCYTES % (AUTO) 11 % (0-12); NEUTROPHILS % (AUTO) 76 % (42-75); PLATELET COUNT 471 10^3/uL (130-400); RED CELL DISTRIBUTION WIDTH 17.8 % (10.0-14.5)
[2019-12-19 21:08] LABS: BASOPHILS % (AUTO) 0 % (0-10); EOSINOPHILS # (AUTO) 0.1 10^3/uL (0.0-0.3); LYMPHOCYTES # (AUTO) 1.1 X 10^3 (1.0-4.0); MONOCYTES # (AUTO) 1.3 X 10^3 (0.0-1.0); NEUTROPHILS # (AUTO) 9.6 X 10^3 (1.8-7.8)
[2019-12-19 21:23] LABS: INR 1.2 (0.8-1.4); PROTHROMBIN TIME PATIENT 15.3 SEC (12.2-14.7)
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
[2019-12-19 21:29] LABS: ALANINE AMINOTRANSFERASE 15 U/L (0-55); ALKALINE PHOSPHATASE 58 U/L (40-136); BILIRUBIN,TOTAL 0.2 MG/DL (0.1-1.0); BUN/CREATININE RATIO 11; CALCIUM 6.7 MG/DL (8.5-10.1); CARBON DIOXIDE 20 MMOL/L (21-32); CHLORIDE 105 MMOL/L (98-107); CREATININE SERUM 0.73 MG/DL (0.60-1.30); GFR ESTIMATED > 60; GLUCOSE 137 MG/DL (70-105); POTASSIUM 4.1 MMOL/L (3.6-5.0); SODIUM 134 MMOL/L (135-145)
[2019-12-19 21:30] LABS: ALBUMIN 1.2 GM/DL (3.2-4.5)
[2019-12-19 21:41] LABS: BAND NEUTROPHILS 6 %; BASOPHILS % (MANUAL) 0 %; EOSINOPHILS % (MANUAL) 2 %; LYMPHOCYTES % (MANUAL) 14 %; METAMYELOCYTES % 3 %; MONOCYTES % (MANUAL) 0 %; MYELOCYTES % 2 %; NEUTROPHILS % (MANUAL) 73 %
[2019-12-19 22:56] VITALS: BP 105/53
--- NOTE | 2019-12-19 22:56 | NUR ---
ems here report and care given
== END 2019-12-19 22:56 | disposition short-term general hospital (02) ==
LOC: EDUNIT# 20:08 → ER FS 20:09
DX: D64.9 Anemia, unspecified (principal); K62.5 Hemorrhage of anus and rectum; I95.9 Hypotension, unspecified; Z66 Do not resuscitate; Z96.642 Presence of left artificial hip joint; Z90.710 Acquired absence of both cervix and uterus; Z85.41 Personal history of malignant neoplasm of cervix uteri; F50.9 Eating disorder, unspecified; F41.9 Anxiety disorder, unspecified; F31.9 Bipolar disorder, unspecified
CPT/HCPCS: 36415; 80053; 85007; 85027; 85610; 85730

== ENCOUNTER 2020-03-26 13:32 | Emergency (ER) | payer MEDICARE, OTHER ==
[~2020-03-26] VITALS: Ht 175.2 cm; Wt 59.8 kg
[2020-03-26 13:32] VITALS: BP 122/70
[2020-03-26] MEDS ORDERED: DICL75TA2 PO (14:06)
--- NOTE | 2020-03-26 14:06 | ED Lower Extremity ---
General Chief Complaint: Lower Extremity Stated Complaint: RT LWR LEG PAIN Nursing Triage Note: Patient presents to the ED with c/o of left lateral knee/valle pain. She states that she had a left hip replacement and November and has been receiving physical therapy since that time. She reports that she started back to therapy on and has increased pain since Wednesday to the point she is unable to bear any weight. Nursing Sepsis Screen: No Definite Risk History of Present Illness Date Seen by Provider: Mar 26, 2020 Time Seen by Provider: 13:50 Initial Comments This patient is a 64-year-old female that presents to the emerge department complaining of left knee pain. Patient had a left hip fracture several months ago and had a hip repair. Patient has been undergoing physical therapy. Patient states that the Overdid It of Last Week He Has Been Complaining of Knee Discomfort. States She Has No Pain in Her Hip Has Full Range Of Motion of Both Her Knee and Hip before She Standing Trying to Use Her Cane She Feels Increased Pain Just below Her Knee around the Patellar Tuberosity Insertion Point. Patient Has No Signs of Injury and No Pain on Palpation.History of Falls. Towards This and She. Patient States She Believes That They Overdid It at Physical Therapy. Patient Has Been Inpatient and Medical [place] for Rehabilitation. Then Also Has Abdomen Outpatient Physical Therapy and Does Have Home Health and Sees Her 3-4 Times A week. Pain/Injury Location: left knee Allergies and Home Medications Allergies Coded Allergies: prochlorperazine (Verified Allergy, Unknown, 11/29/19) Home Medications Acetaminophen 325 Mg Tablet, 650 MG PO Q4H PRN for PAIN-MILD (1-4), (Reported) Alprazolam 0.25 Mg Tablet, 0.25 MG PO Q8H PRN for ANXIETY Prescribed by: DENI JUAREZ on 12/19/19 0946 Bisacodyl 10 Mg Supp.rect, 10 MG RC DAILY PRN for CONSTIPATION-4TH LINE, (Reported) Cyanocobalamin (Vitamin B-12) 1,000 Mcg Tablet, 1,000 MCG PO DAILY@0700 Prescribed by: DENI JUAREZ on 12/18/19 0919 Estradiol 1 Each Patch.tdwk, 1 EACH TD Weekly, (Reported) Ferrous Gluconate 324 Mg Tablet, 324 MG PO DAILY W/ BREAKFAST, (Reported) Folic Acid 1 Mg Tablet, 1 MG PO DAILY, (Reported) Hydrocortisone 30 Gm Cream.appl, 0 GM TOP BID Prescribed by: DENI JUAREZ on 12/18/19918 Lamotrigine 150 Mg Tablet, 300 MG PO DAILY, (Reported) Magnesium Hydroxide 2,400 Mg/10 Ml Oral.susp, 10 MG PO DAILY PRN for CONSTIPATION-7TH LINE, (Reported) Methocarbamol 750 Mg Tablet, 750 MG PO TID, (Reported) Oxycodone HCl 5 Mg Tablet, 5-10 MG PO Q4H PRN for PAIN-SEVERE (8-10) Prescribed by: DENI JUAREZ on 12/18/19918 Pantoprazole Sodium 40 Mg Tablet.dr, 40 MG PO DAILY Prescribed by: DENI JUAREZ on 12/19/19945 Polyethylene Glycol 3350 17 Gm Powd.pack, 17 GM PO DAILY, (Reported) Prednisone 5 Mg Tablet, 7.5 MG PO DAILY W/ BREAKFAST, (Reported) Sennosides/Docusate Sodium 1 Each Tablet, 1 EACH PO BID, (Reported) Valacyclovir HCl 500 Mg Tablet, 1,000 MG PO TID Prescribed by: DENI JUAREZ on 12/18/19918 Patient Home Medication List Home Medication List Reviewed: Yes Review of Systems Constitutional: No no symptoms reported; see HPI; No chills, No diaphoresis, No dizziness, No fever, No malaise, No weakness, No weight gain, No weight loss, No other EENTM: No see HPI, No no symptoms reported, No ear discharge, No hearing loss, No ear pain, No blurred vision, No double vision, No eye pain, No tearing, No vision loss, No dental problems, No hoarseness, No mouth pain, No mouth swelling, No epistaxis, No nose congestion, No nose pain, No throat pain, No throat swelling, No other Respiratory: No no symptoms reported, No see HPI, No cough, No dyspnea on exertion, No hemoptysis, No orthopnea, No phlegm, No short of breath, No stridor, No wheezing, No other Gastrointestinal: No RUQ, No LUQ, No RLQ, No LLQ, No no symptoms reported, No see HPI, No abdominal pain, No constipation, No diarrhea, No dysphagia, No hematemesis, No heartburn, No jaundice, No loss of appetite, No melena, No nausea, No vomiting, No other Musculoskeletal: No no symptoms reported; see HPI; No back pain, No gout; joint pain; No joint swelling, No muscle pain, No muscle stiffness, No muscle cramps, No muscle twitching, No muscle weakness, No neck pain, No other Skin: No no symptoms reported, No see HPI, No change in color, No change in hair/nails, No dryness, No hx of skin cancer, No lesions, No lumps, No pruritus, No rash, No other All Other Systems Reviewed Negative Unless Noted: Yes Past Itlhokh-Epafhy-Qfaauf Hx Patient Social History Alcohol Use: Denies Use Number of Drinks Today: Alcohol Beverage of Choice: Wine Recreational Drug Use: No Smoking Status: Never a Smoker 2nd Hand Smoke Exposure: No Recent Foreign Travel: No Contact w/Someone Who Travel: No Recent Infectious Disease Expo: No Recent Hopitalizations: No Physical Abuse: No Sexual Abuse: No Mistreated: No Fear: No Immunizations Up To Date Tetanus Booster (TDap): Unknown Date of Pneumonia Vaccine: Aug 16, 2019 Date of Influenza Vaccine: Jul 12, 2019 Seasonal Allergies Seasonal Allergies: No Past Medical History Surgeries: Yes (Left femur/hip surgery. ) Gallbladder, Hysterectomy, Orthopedic Respiratory: No Cardiac: No Neurological: No Genitourinary: No Gastrointestinal: Yes Chronic Constipation, Gall Bladder Disease Musculoskeletal: Yes Fractures Endocrine: No HEENT: No Cancer: Yes Cervical Did You Recieve Any Treatments: Yes What Type of Treatment Did You: Surgical Intervention Psychosocial: Yes Eating Disorder, Anxiety, Bipolar, Depression Integumentary: No Blood Disorders: No Family Medical History Heart Disease Physical Exam Vital Signs Vital Signs - First Documented 03/26/20 13:32 Temp 36.8 Pulse 97 Resp 16 B/P (MAP) 122/70 (87) Pulse Ox 96 O2 Delivery Room Air Capillary Refill : Less Than 3 Seconds Height, Weight, BMI Height: '" Weight: lbs. oz. kg; 19.00 BMI Method: General Appearance: WD/WN, no apparent distress Neck: non-tender, full range of motion, supple, normal inspection Cardiovascular: normal peripheral pulses, regular rate, rhythm, no edema, no gallop, no JVD, no murmur Respiratory: chest non-tender, lungs clear, normal breath sounds, no respiratory distress, no accessory muscle use Gastrointestinal: normal bowel sounds, non tender, soft, no organomegaly, no pulsatile mass Legs: bilateral leg non-tender, bilateral leg normal inspection, bilateral leg normal range of motion, bilateral leg no evidence of injury Knees: bilateral knee non-tender, bilateral knee normal inspection, bilateral knee normal range of motion, bilateral knee no evidence of injury Reflexes: 2+ knee (R), 2+ knee (L) Neurologic/Psychiatric: welt stitch cleaner II-XII nml as tested, no motor/sensory deficits, alert, normal mood/affect, oriented x 3 Skin: normal color, warm/dry Lymphatic: no adenopathy Procedures/Interventions Patient Education: Explained Benefits, Explained Risks, Pt. Ack. Understanding Patient History: Problem w/Aneshesia Breath Sounds per Auscultation: Clear Heart Sounds per Auscultation: Regular Airway Exam: Mouth opens >2 fingers, Neck Full Range of Motion, Visulation of Uvula Progress/Results/Core Measures Results/Orders Vital Signs/I&O 03/26/20 13:32 Temp 36.8 Pulse 97 Resp 16 B/P (MAP) 122/70 (87) Pulse Ox 96 O2 Delivery Room Air Blood Pressure Mean: 87 Progress Progress Note : Time: 14:04 Progress Note Negative evaluation for any acute issue in the emergency department. We did discuss at length with patient about physical therapy weakness knee pain hip pain and other issues. We did discuss even possible MRI for the patient. However that is an outpatient study. Patient is instructed follow-up with her primary care physician and discuss further physical therapy and rehabilitation evaluation. Patient given the following instructions. Diclofenac as needed for pain. Rest ice elevation and may use Karlos wrap as needed. To help give support. Follow-up with primary care physician in 2-3 days of symptoms failed to improve or worsen. Patient understands she might need to be back in physical therapy rehabilitation type setting. She should discuss this with her PCP. Use walker as prescribed may continue all home medications. Departure Impression Primary Impression: Knee pain Disposition: 01 HOME, SELF-CARE Condition: Stable Departure-Patient Inst. Decision time for Depature: 14:06 Referrals: [facility] (PCP/Family) Primary Care Physician Patient Instructions: Knee Sprain (DC) Add. Discharge Instructions: Diclofenac as needed for pain. Rest ice elevation and may use Karlos wrap as needed. To help give support. Follow-up with primary care physician in 2-3 days of symptoms failed to improve or worsen. Patient understands she might need to be back in physical therapy rehabilitation type setting. She should discuss this with her PCP. Use walker as prescribed may continue all home medications. All discharge instructions reviewed with patient and/or family. Voiced understanding. Scripts Diclofenac Sodium (Diclofenac Sodium) 75 Mg Tablet. 75 MG PO BID for 10 Days, #20 TAB 0 Refills Prov: EMMANUEL ABARCA MD 03/26/20 EMMANUEL ABARCA MD Mar 26, 2020 14:06
--- OUTSIDE RECORDS SUMMARY | 2020-03-26 15:21 | XMS REPORT ---
Author Author Shireen YOUNGER Organization [facility] Address [address] [place] [address] Care Team Providers Care Bran Mixer Name Role Phone PEMA YOUNGER Unavailable PROBLEMS Type Condition ICD9-CM Code OXL54-RO Code Onset Dates Condition S tatus SNOMED Code Problem Personality disorder, unspecified F60.9 Active 07708490 Problem Rheumatoid arthritis involvi ng multiple sites, unspecified rheumatoid factor presence M06.9 Active 90048058 Problem Rheumatoid arthritis with po sitive rheumatoid factor, involving unspecified site M05.9 Active 036041360 Problem Post-traumatic stress disorder, chronic F43.12 Active 34074193 Problem Bipolar disorder, current episode depressed, moderate F31.32 Active 121840635 Problem Anorexia nervosa F50.00 Active 568 65246 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 [id number] ALLERGIES No Information ENCOUNTERS Encounter Location Date Diagnosis [address] [id number] [address] Mar, [facility] [address] [id number] [address] Feb, Excessive cerumen in both ea r canals H61.[address] [id number], [place] [address] Feb, [address] [id number], [place] [address] Feb, [address] [id number], [place] [address] 09 Feb, [address] [id number], [place] [address] January, Rheumatoid arthritis with po sitive rheumatoid factor, involving unspecified site M05.9 [facility] SURINDER [address] [id number] [place] [address] January, [address] [id number] [place] [address] January, [address] [id number] [place] [address] January, [address] [id number] [place] [address] January, Bipolar disorder, current ep isode depressed, moderate F31.[address] [id number] [place] [address] January, Bipolar disorder, current ep isode depressed, moderate F31.[address] 340[address] [id number] [place] [address] January, [address] [id number] [place] [address] January, [address] [id number] [place] [address] January, [address] [id number] [place] [address] January, [facility] [address] [id number] [place] [address] January, Bipolar disorder, current ep isode depressed, moderate F31.32 ; Post-traumatic stress disorder, chronic F43.12 and Anorexia nervosa F50.00 [facility] [address] [place] [address] January, [facility] resident Z59.3 ; Rheumatoid arthritis involving multiple sites, unspecified rheumatoid factor presence M06.9 ; Post-traumatic stress disorder, chronic F43.12 and Bipolar disorder, current episode depressed, moderate F31.[address] 340[address] [id number] [place] [address] January, [facility] [address] [id number] [address] [place] [address] 30 Dec, 2019 Bipolar disorder, current ep isode depressed, moderate F31.32 ; Post-traumatic stress disorder, chronic F43.12 and Anorexia nervosa F50.00 [facility] [address] [id number] [address] [place] [address] 22 Dec, 2019 Bipolar disorder, current ep isode depressed, moderate F31.32 ; Post-traumatic stress disorder, chronic F43.12 and Anorexia nervosa F50.[address] 340[address] [id number], [place] [address] 16 Dec, 2019 Bipolar disorder, current ep isode depressed, moderate F31.32 [place] [address] [facility] [id number] [address] [place] [address] 15 Dec, 2019 [place] [address] [facility] [id number] [address] [place] [address] 15 Dec, 2019 Bipolar disorder, current ep isode depressed, moderate F31.32 ; Post-traumatic stress disorder, chronic F43.12 and Anorexia nervosa F50.00 [facility] [address] [place] [address] 15 Dec, 2019 Bipolar disorder, current episode depressed, moderate F31.32 and Rheumatoid arthritis involving multiple sites, unspecified rheumatoid factor presence M06.9 [place] [address] [facility] [id number] [address] [place] [address] 14 Dec, 2019 [place] [address] [id number] [address] [place] [address] 09 Dec, 2019 Bipolar disorder, current ep isode depressed, moderate F31.32 ; Post-traumatic stress disorder, chronic F43.12 and Anorexia nervosa F50.00 [place] [address] [facility] [id number] [address] [place] [address] 08 Dec, 2019 Bipolar disorder, current ep isode depressed, moderate F31.32 ; Post-traumatic stress disorder, chronic F43.12 and Anorexia nervosa F50.00 [place] [address] [facility] [id number] [address] [place] [address] Dec, [facility] [address] [facility] [id number] [address] [place] [address] Dec, [facility] [place] [address] [facility] [id number] [place] [address] Nov, [facility] [address] [facility] [id number] [address] [place] [address] Nov, [facility] [address] [facility] [id number] [address] [place] [address] Nov, [facility] [place] [address] [facility] [id number] [place] [address] Oct, Rheumatoid arthritis involving multiple sites, unspecified rheumatoid factor presence M06.9 [facility] [place] [address] [facility] [id number] [place] [address] Oct, residential systemic steroid user Z79.52 [facility] [place] [id number] [place] [address] Oct, Bipolar disorder, current episode depressed, moderate F31.32 ; Anorexia nervosa F50.00 ; Rheumatoid arthritis involving multiple sites, unspecified rheumatoid factor presence M06.9 and residential systemic steroid user Z79.52 [facility] [address] [facility] [id number] [address] [place] [address] Sep, [facility] [address] [facility] [id number] [address] [place] [address] Sep, Bipolar disorder, current ep isode depressed, moderate F31.32 ; Post-traumatic stress disorder, chronic F43.12 and Anorexia nervosa F50.00 [facility] [address] [facility] [id number] [address] [place] [address] Sep, [facility] [address] [facility] [id number] [address] [place] [address] Aug, [facility] [address] [facility] [id number] [address] [place] [address] Aug, [facility] [address] [facility] [id number] [address] [place] [address] Aug, [place] [address] [id number] [address] [place] [address] Aug, Bipolar disorder, current ep isode depressed, moderate F31.32 ; Post-traumatic stress disorder, chronic F43.12 ; Anorexia nervosa F50.00 and Personality disorder, unspecified F60.9 [place] [address] [id number] [address] [place] [address] Jul, Bipolar disorder, current ep isode depressed, moderate F31.32 and Anorexia nervosa F50.00 [place] [address] [id number] [address] [place] [address] Jul, [place] [address] [id number] [address] [place] [address] Jul, [place] [address] [id number] [address] [place] [address] Jul, [place] [id number] [place] [address] Jun, Bipolar disorder, current ep isode depressed, moderate F31.32 ; Post-traumatic stress disorder, chronic F43.12 and Eating disorder, unspecified F50.9 [place] [id number] [place] [address] May, [place] [address] [id number] [place] [address] Apr, Bipolar disorder, current ep isode depressed, moderate F31.32 ; Post-traumatic stress disorder, chronic F43.12 and Eating disorder, unspecified F50.9 [place] [id number] [place] [address] Feb, Bipolar disorder, current ep isode depressed, moderate F31.32 ; Post-traumatic stress disorder, chronic F43.12 and Personality disorder, unspecified F60.9 [place] [id number] [place] [address] Feb, Bipolar II disorder F31.81 [facility] [address] [id number] [address] [place], [place] [address] Dec, Bipolar disorder, current ep isode depressed, moderate F31.32 ; Post-traumatic stress disorder, chronic F43.12 and Personality disorder, unspecified F60.9 [facility] [address] [id number] [address] [place] [address] Dec, Bipolar disorder, current ep isode depressed, moderate F31.32 ; Post-traumatic stress disorder, chronic F43.12 and Personality disorder, unspecified F60.9 [facility] [address] [id number] [address] [place], [place] [address] Dec, [facility] [address] [id number] [address] [place] [address] Dec, [facility] [address] [id number] [address] [place] [address] Dec, Bipolar disorder, current ep isode depressed, moderate F31.32 ; Post-traumatic stress disorder, chronic F43.12 and Personality disorder, unspecified F60.9 [place] [address] [id number] [address] [place] [address] Nov, [facility] [address] [id number] [address] [place] [address] Nov, Bipolar disorder, current ep isode depressed, moderate F31.32 ; Post-traumatic stress disorder, chronic F43.12 and Personality disorder, unspecified F60.9 [facility] [address] [id number] [address] [place] [address] Nov, Bipolar disorder, current ep isode depressed, moderate F31.32 ; Post-traumatic stress disorder, chronic F43.12 and Personality disorder, unspecified F60.9 [facility] [address] [id number] [address] [place] [address] Oct, [facility] [address] [id number] [address] [place] [address] Oct, Bipolar disorder, current ep isode depressed, moderate F31.32 ; Post-traumatic stress disorder, chronic F43.12 and Personality disorder, unspecified F60.9 [place] [address] [facility] [id number] [address] [place] [address] Oct, Bipolar disorder, current ep isode depressed, moderate F31.32 ; Post-traumatic stress disorder, chronic F43.12 and Personality disorder, unspecified F60.9 [place] [address] [facility] [id number] [address] [place] [address] Aug, Bipolar II disorder F31.81 a nd Post-traumatic stress disorder, unspecified F43.10 [place] [id number] [address] [place] [address] Aug, Bipolar disorder, current ep isode depressed, moderate F31.32 ; Post-traumatic stress disorder, chronic F43.12 and Personality disorder, unspecified F60.9 [place] [id number] [place] [address] Jul, Bipolar disorder, unspecifie d 296.80 and Posttraumatic stress disorder 309.81 [place] [id number] [address] [place] [address] Jul, Post-traumatic stress disord er, chronic F43.12 ; Personality disorder, unspecified F60.9 and Bipolar disorder, current episode depressed, moderate F31.32 [place] [id number] [place] [address] Jun, Bipolar disorder, unspecifie d 296.80 and Posttraumatic stress disorder 309.81 [place] [id number] [address] [place] [address] Jun, Bipolar disorder, unspecifie d 296.80 and Posttraumatic stress disorder 309.81 [place] [address] [id number] [address] [place] [address] Jun, Posttraumatic stress disorde r 309.81 and Bipolar disorder, unspecified 296.80 [facility] [address] [id number] [address] [place] [address] May, Bipolar II disorder 296.89 a nd Post traumatic stress disorder 309.81 [facility] [address] [id number] [address] [place] [address] May, 2014 Bipolar II disorder 296.89 a nd Post traumatic stress disorder 309.81 [facility] [address] [id number] [address] [place] [address] May, 2014 [facility] [address] [id number] [address] [place] [address] May, 2014 [facility] [address] [facility] [id number] [address] [place] [address] May, 2014 [facility] [address] [facility] [id number] [address] [place] [address] May, 2014 [facility] [address] [facility] [id number] [address] [place] [address] May, Bipolar II disorder 296.89 a nd Post traumatic stress disorder 309.81 [facility] [address] [facility] [id number] [address] [place] [address] May, Bipolar I disorder, most rec ent episode (or current) depressed, moderate 296.52 ; Posttraumatic stress disorder 309.81 and Anxiety state, unspecified 300.00 [facility] [address] [facility] [id number] [address] [place] [address] Apr, Bipolar II disorder 296.89 a nd Post traumatic stress disorder 309.81 [facility] [address] [facility] [id number] [address] [place] [address] Apr, [facility] [address] [facility] [id number] [address] [place] [address] Apr, Bipolar II disorder 296.89 a nd Post traumatic stress disorder 309.81 [facility] [address] [facility] [id number] [address] [place] [address] Apr, Bipolar II disorder 296.89 a nd Post traumatic stress disorder 309.81 [facility] [address] [id number] [address] [place] [address] Mar, Bipolar II disorder 296.89 a nd Post traumatic stress disorder 309.81 [facility] [address] [id number] [address] [place] [address] Mar, [facility] [address] [id number] [address] [place] [address] Mar, Bipolar II disorder 296.89 a nd Post traumatic stress disorder 309.81 [facility] [address] [id number] [address] [place] [address] Mar, Bipolar II disorder 296.89 a nd Post traumatic stress disorder 309.81 [facility] [address] [id number] [address] [place] [address] Mar, Bipolar II disorder 296.89 a nd Post traumatic stress disorder 309.81 [facility] [address] [id number] [address] [place] [address] Mar, [facility] [address] [id number] [address] [place] [address] Mar, Bipolar II disorder 296.89 a nd Post traumatic stress disorder 309.81 [facility] [address] [id number] [address] [place] [address] Feb, Bipolar II disorder 296.89 a nd Post traumatic stress disorder 309.81 [facility] [address] [id number] [address] [place] [address] Feb, [facility] [address] [id number] [address] [place] [address] Feb, Bipolar disorder, unspecifie d 296.80 and Anxiety state, unspecified 300.00 [facility] [address] [id number] [address] [place] [address] Feb, [facility] [address] [id number] [address] [place] [address] Feb, [facility] [address] [id number] [address] [place] [address], [place] [address] January, [facility] [address] [id number] [address] [place] [address], [place] [address] Dec, [facility] [address] [id number] [address] [place] [address], [place] [address] Dec, [facility] [address] [id number] [address] [place] [address], [place] [address] Nov, [facility] [address] [id number] [address] [place] [address], [place] [address] Nov, [facility] [address] [id number] [address] [place] [address], [place] [address] Nov, [facility] [address] [id number] [address] [place] [address], [place] [address] Nov, [facility] [address] [id number] [address] [place] [address], [place] [address] Nov, [facility] [address] [id number] [address] [place] [address], [place] [address] Nov, [facility] [address] [id number] [address] [place] [address], [place] [address] Nov, [facility] [address] [id number] [address] [place] [address], [place] [address] Nov, [facility] [address] [id number] [address] [place] [address], [place] [address] Nov, [facility] [address] [id number] [address] [place] [address], [place] [address] Oct, [facility] [address] [id number] [address] [place] [address], [place] [address] Oct, [facility] [address] [id number] [address] [place] [address], [place] [address] Oct, [facility] [address] [id number] [address] [place] [address], [place] [address] Oct, [facility] [address] [id number] [address] [place] [address], [place] [address] Oct, [facility] [address] [id number] [address] [place] [address], [place] [address] Oct, [facility] [address] [id number] [address] [place] [address], [place] [address] Oct, [facility] [address] [id number] [address] [place] [address], [place] [address] Oct, [facility] [address] [id number] [address] [place] [address], [place] [address] Sep, [facility] [address] [id number] [address] [place] [address], [place] [address] Sep, [facility] [address] [id number] [address] [place] [address], [place] [address] Sep, [facility] [address] [id number] [address] [place] [address], [place] [address] Sep, [facility] [address] [id number] [address] [place] [address] Sep, [facility] [address] [id number] [address] [place] [address] Sep, [facility] [address] [id number] [address] [place] [address] Sep, [facility] [address] [id number] [address] [place] [address], [place] [address] Sep, [facility] [address] [id number] [address] [place] [address], [place] [address] Sep, [facility] [address] [id number] [address] [place] [address] Sep, [facility] [address] [id number] [address] [place] [address] Aug, [facility] [address] [id number] [address] [place] [address], [place] [address] Aug, [facility] [address] [id number] [address] [place] [address], [place] [address] Aug, [facility] [address] [id number] [address] [place] [address], [place] [address] Aug, [facility] [address] [id number] [address] [place] [address], [place] [address] Aug, [facility] [address] [id number] [address] [place] [address], [place] [address] Aug, [facility] [address] [id number] [address] [place] [address], [place] [address] Aug, [facility] [address] [id number] [address] [place] [address], [place] [address] Aug, [facility] [address] [id number] [address] [place] [address], [place] [address] Jul, [facility] [address] [id number] [address] [place] [address], [place] [address] Jul, [facility] [address] [id number] [address] [place] [address], [place] [address] Jul, [facility] [address] [id number] [address] [place] [address], [place] [address] Jul, [facility] [address] [id number] [address] [place] [address], [place] [address] Jul, [facility] [address] [id number] [address] [place] [address], [place] [address] Jul, [facility] [address] [id number] [address] [place] [address], [place] [address] Jul, [facility] [address] [id number] [address] [place] [address], [place] [address] Jul, [facility] [address] [id number] [address] [place] [address], [place] [address] Jul, [facility] [address] [id number] [address] [place] [address], [place] [address] Jun, [facility] [address] [id number] [address] [place] [address], [place] [address] Jun, [facility] [address] [id number] [address] [place] [address], [place] [address] Jun, [facility] [address] [id number] [address] [place] [address], [place] [address] Jun, [facility] [address] [id number] [address] [place] [address], [place] [address] Jun, [facility] [address] [id number] [address] [place] [address], [place] [address] Jun, [facility] [address] [id number] [address] [place] [address], [place] [address] May, [facility] [address] [id number] [address] [place] [address], [place] [address] May, [facility] [address] [id number] [address] [place] [address], [place] [address] 16 May, 2014 [facility] [address] [id number] [address] [place] [address], [place] [address] 16 May, 2014 [facility] [address] [id number] [address] [place] [address], [place] [address] May, [facility] [address] [id number] [address] [place] [address], [place] [address] May, [facility] [address] [id number] [address] [place] [address], [place] [address] Apr, [facility] [address] [id number] [address] [place] [address], [place] [address] Apr, [facility] [address] [id number] [address] [place] [address], [place] [address] Apr, [facility] [address] [id number] [facility] [place] [address] Apr, [facility] [address] [id number] [facility] [place] [address] Apr, [facility] [address] [id number] [facility] [place] [address] Apr, [facility] [address] [id number] [address] [place] [address], [place] [address] Mar, [facility] [address] [id number] [facility] [place] [address] Mar, [facility] [address] [id number] [address] [place] [address], [place] [address] Mar, [facility] [address] [id number] [address] [place] [address], [place] [address] Mar, [facility] [address] [id number] [address] [place] [address], [place] [address] Mar, [facility] [address] [id number] [address] [place] [address], [place] [address] Mar, [facility] [address] [id number] [address] [place] [address], [place] [address] Mar, [facility] [address] [id number] [address] [place] [address], [place] [address] Mar, [facility] [address] [id number] [address] [place] [address], [place] [address] Mar, [facility] [address] [id number] [address] [place] [address], [place] [address] Mar, [facility] [address] [id number] [address] [place] [address], [place] [address] Mar, [facility] [facility] [address] [id number] [address] [place] [address], [place] [address] Mar, [facility] [address] [id number] [facility] [place] [address] Mar, [facility] [address] [id number] [address] [place] [address], [place] [address] Mar, [facility] [address] [id number] [address] [place] [address], [place] [address] Mar, [facility] [address] [id number] [address] [place] [address], [place] [address] Mar, [facility] [address] [id number] [address] [place] [address], [place] [address] Feb, [facility] [address] [id number] [address] [place] [address], [place] [address] Feb, [facility] [address] [id number] [address] [place] [address], [place] [address] Feb, [facility] [address] [id number] [address] [place] [address], [place] [address] Feb, [facility] [address] [id number] [address] [place] [address], [place] [address] Feb, [facility] [address] [id number] [address] [place] [address], [place] [address] Feb, [facility] [address] [id number] [address] [place] [address], [place] [address] Feb, [facility] [address] [id number] [address] [place] [address], [place] [address] Feb, [facility] [address] [id number] [address] [place] [address], [place] [address] Feb, [facility] [address] [id number] [address] [place] [address], [place] [address] Feb, [facility] [address] [id number] [address] [place] [address], [place] [address] Feb, [facility] [address] [id number] [address] [place] [address], [place] [address] 05 Feb, 2014 [facility] [address] [id number] [address] [place] [address], [place] [address] Feb, [facility] [address] [id number] [address] [place] [address], [place] [address] January, [facility] [address] [id number] [address] [place] [address], [place] [address] January, [facility] [address] [id number] [address] [place] [address], [place] [address] January, [facility] [address] [id number] [address] [place] [address], [place] [address] January, [facility] [address] [id number] [address] [place] [address], [place] [address] January, [facility] [address] [id number] [address] [place] [address], [place] [address] January, [facility] [address] [id number] [address] [place] [address], [place] [address] January, [facility] [address] [id number] [address] [place] [address], [place] [address] January, [facility] [address] [id number] [address] [place] [address], [place] [address] January, [facility] [address] [id number] [address] [place] [address], [place] [address] January, [facility] [address] [id number] [address] [place] [address], [place] [address] January, [facility] [address] [id number] [address] [place] [address], [place] [address] January, [facility] [address] [id number] [address] [place] [address], [place] [address] January, [facility] [address] [id number] [address] [place] [address], [place] [address] January, [facility] [address] [id number] [address] [place] [address], [place] [address] Dec, [facility] [address] [id number] [address] [place] [address], [place] [address] Dec, [facility] [address] [id number] [address] [place] [address], [place] [address] Dec, [facility] [address] [id number] [address] [place] [address], [place] [address] Dec, [facility] [address] [id number] [address] [place] [address], [place] [address] Dec, [facility] [address] [id number] [address] [place] [address], [place] [address] Dec, [facility] [address] [id number] [address] [place] [address], [place] [address] Dec, [facility] [address] [id number] [address] [place] [address], [place] [address] Dec, [facility] [address] [id number] [address] [place] [address], [place] [address] Nov, [facility] [address] [id number] [address] [place] [address], [place] [address] Nov, [facility] [address] [id number] [address] [place] [address], [place] [address] Nov, [facility] [address] [id number] [address] [place] [address], [place] [address] Nov, [facility] [address] [id number] [address] [place] [address], [place] [address] Oct, [facility] [address] [id number] [address] [place] [address], [place] [address] Oct, [facility] [address] [id number] [address] [place] [address], [place] [address] Oct, [facility] [address] [id number] [address] [place] [address], [place] [address] Oct, [facility] [address] [id number] [address] [place] [address], [place] [address] Oct, [facility] [address] [id number] [address] [place] [address], [place] [address] Oct, [facility] [address] [id number] [address] [place] [address], [place] [address] Sep, [facility] [address] [id number] [address] [place] [address], [place] [address] Sep, [facility] [address] [id number] [address] [place] [address], [place] [address] Sep, [facility] [address] [id number] [address] [place] [address], [place] [address] Sep, [facility] [address] [id number] [address] [place] [address], [place] [address] Sep, [facility] [address] [id number] [address] [place] [address], [place] [address] Sep, [facility] [address] [id number] [address] [place] [address], [place] [address] Sep, [facility] [address] [id number] [address] [place] [address], [place] [address] Sep, [facility] [address] [id number] [address] [place] [address], [place] [address] Sep, [facility] [address] [id number] [address] [place] [address], [place] [address] Sep, [facility] [address] [id number] [address] [place] [address], [place] [address] Aug, [facility] [address] [id number] [address] [place] [address], [place] [address] Aug, [facility] [address]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
--- OUTSIDE RECORDS SUMMARY | 2020-03-26 15:21 | XMS REPORT ---
Author Author Shireen YOUNGER Organization [facility] Address [address] [place] [address] Care Team Providers Care Assurance Senior Manager Name Role Phone PEMA YOUNGER Unavailable PROBLEMS Type Condition ICD9-CM Code [id number] Code Onset Dates Condition S tatus SNOMED Code Problem Personality disorder, unspecified F60.9 Active 18816792 Problem Rheumatoid arthritis involvi ng multiple sites, unspecified rheumatoid factor presence M06.9 Active 35140996 Problem Rheumatoid arthritis with po sitive rheumatoid factor, involving unspecified site M05.9 Active 680297626 Problem Post-traumatic stress disorder, chronic F43.12 Active 30215579 Problem Bipolar disorder, current episode depressed, moderate F31.32 Active 137639541 Problem Anorexia nervosa F50.00 Active 568 81404 Problem 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 Active [id number] ALLERGIES No Information ENCOUNTERS Encounter Location Date Diagnosis [address] [id number] [address] Mar, [facility] [address] [facility] [id number] [address] [place] [address] Feb, [address] [id number], [place] [address] January, Rheumatoid arthritis with po sitive rheumatoid factor, involving unspecified site M05.[address] [id number] [address] January, [address] [id number] [address] January, [address] [id number] [place] [address] January, [address] [id number] [place] [address] January, Bipolar disorder, current ep isode depressed, moderate F31.[address] [id number] [place] [address] January, Bipolar disorder, current ep isode depressed, moderate F31.[address] [id number] [place] [address] January, [address] [id number] [place] [address] January, [address] [id number] [place] [address] January, [address] [id number] [place] [address] January, [place] [address] [place] [id number] [address] [place] [address] January, Bipolar disorder, current ep isode depressed, moderate F31.32 ; Post-traumatic stress disorder, chronic F43.12 and Anorexia nervosa F50.00 [facility] [address] [place] [address] January, shelter resident Z59.3 ; Rheumatoid arthritis involving multiple sites, unspecified rheumatoid factor presence M06.9 ; Post-traumatic stress disorder, chronic F43.12 and Bipolar disorder, current episode depressed, moderate F31.[address] [id number] [place] [address] January, [facility] [address] [id number] [address] [place] [address] Dec, Bipolar disorder, current ep isode depressed, moderate F31.32 ; Post-traumatic stress disorder, chronic F43.12 and Anorexia nervosa F50.00 [place] [address] [id number] [address] [place] [address] Dec, Bipolar disorder, current ep isode depressed, moderate F31.32 ; Post-traumatic stress disorder, chronic F43.12 and Anorexia nervosa F50.00 [facility] [address] [facility] [address] [id number] [address] 16 Dec, 2019 Bipolar disorder, current ep isode depressed, moderate F31.32 [facility] [address] [id number] [address] [place] [address] 15 Dec, 2019 [facility] [address] [facility] [id number] [address] [place] [address] 15 Dec, 2019 Bipolar disorder, current ep isode depressed, moderate F31.32 ; Post-traumatic stress disorder, chronic F43.12 and Anorexia nervosa F50.00 [facility] [address] [place] [address] 15 Dec, 2019 Bipolar disorder, current episode depressed, moderate F31.32 and Rheumatoid arthritis involving multiple sites, unspecified rheumatoid factor presence M06.9 [facility] [address] [facility] [id number] [address] [place] [address] 14 Dec, 2019 [facility] [address] [facility] [id number] [address] [place] [address] 09 Dec, 2019 Bipolar disorder, current ep isode depressed, moderate F31.32 ; Post-traumatic stress disorder, chronic F43.12 and Anorexia nervosa F50.00 [facility] [address] [id number] [address] [place] [address] 08 Dec, 2019 Bipolar disorder, current ep isode depressed, moderate F31.32 ; Post-traumatic stress disorder, chronic F43.12 and Anorexia nervosa F50.00 [facility] [address] [facility] [id number] [address] [place] [address] 07 Dec, 2019 [facility] [address] [facility] [id number] [address] [place] [address] 04 Dec, 2019 [facility] [address] [id number] [place] [address] 24 Nov, 2019 [facility] [address] [facility] [id number] [address] [place] [address] Nov, [facility] [address] [facility] [id number] [address] [place] [address] Nov, [facility] [place] [address] [facility] [id number] [place] [address] Oct, Rheumatoid arthritis involving multiple sites, unspecified rheumatoid factor presence M06.9 [facility] [place] [address] [facility] [id number] [place] [address] Oct, 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 [facility] [place] [address] [facility] [id number] [place] [address] Oct, Bipolar disorder, current episode depressed, moderate F31.32 ; Anorexia nervosa F50.00 ; Rheumatoid arthritis involving multiple sites, unspecified rheumatoid factor presence M06.9 and 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 [facility] [address] [facility] [id number] [address] [place] [address] Sep, [facility] [address] [place] [id number] [address] [place] [address] Sep, Bipolar disorder, current ep isode depressed, moderate F31.32 ; Post-traumatic stress disorder, chronic F43.12 and Anorexia nervosa F50.00 [place] [address] [place] [id number] [address] [place] [address] Sep, [facility] [address] [place] [id number] [address] [place] [address] Aug, [facility] [address] [place] [id number] [address] [place] [address] Aug, [facility] [address] [facility] [id number] [address] [place] [address] Aug, [facility] [address] [place] [id number] [address] [place] [address] Aug, Bipolar disorder, current ep isode depressed, moderate F31.32 ; Post-traumatic stress disorder, chronic F43.12 ; Anorexia nervosa F50.00 and Personality disorder, unspecified F60.9 [facility] [address] [id number] [address] [place] [address] 08 Jul, 2017 Bipolar disorder, current ep isode depressed, moderate F31.32 and Anorexia nervosa F50.00 [place] [address] [facility] [id number] [address] [place] [address] Jul, [facility] [address] [facility] [id number] [address] [place] [address] Jul, [facility] [address] [facility] [id number] [address] [place] [address] Jul, [place] [address] [facility] [id number] [address] [place] [address] Jun, Bipolar disorder, current ep isode depressed, moderate F31.32 ; Post-traumatic stress disorder, chronic F43.12 and Eating disorder, unspecified F50.9 [place] [address] [facility] [id number] [address] [place] [address] May, [place] [address] [facility] [id number] [address] [place] [address] Apr, Bipolar disorder, current ep isode depressed, moderate F31.32 ; Post-traumatic stress disorder, chronic F43.12 and Eating disorder, unspecified F50.9 [place] [address] [place] [id number] [address] [place] [address] Feb, Bipolar disorder, current ep isode depressed, moderate F31.32 ; Post-traumatic stress disorder, chronic F43.12 and Personality disorder, unspecified F60.9 [place] [address] [facility] [id number] [address] [place] [address] 14 Feb, 2016 Bipolar II disorder F31.81 [place] [address] [facility] [id number] [address] [place] [address] Dec, Bipolar disorder, current ep isode depressed, moderate F31.32 ; Post-traumatic stress disorder, chronic F43.12 and Personality disorder, unspecified F60.9 [place] [address] [facility] [id number] [address] [place] [address] Dec, Bipolar disorder, current ep isode depressed, moderate F31.32 ; Post-traumatic stress disorder, chronic F43.12 and Personality disorder, unspecified F60.9 [place] [address] [id number] [address] [place], [place] [address] Dec, [facility] [address] [id number] [address] [place] [address] Dec, [facility] [address] [id number] [address] [place], [place] [address] Dec, Bipolar disorder, current ep isode depressed, moderate F31.32 ; Post-traumatic stress disorder, chronic F43.12 and Personality disorder, unspecified F60.9 [place] [address] [id number] [address] [place] [address] Nov, [place] [address] [id number] [address] [place] [address] Nov, Bipolar disorder, current ep isode depressed, moderate F31.32 ; Post-traumatic stress disorder, chronic F43.12 and Personality disorder, unspecified F60.9 [place] [address] [id number] [address] [place] [address] Nov, Bipolar disorder, current ep isode depressed, moderate F31.32 ; Post-traumatic stress disorder, chronic F43.12 and Personality disorder, unspecified F60.9 [place] [address] [id number] [address] [place] [address] Oct, [place] [address] [id number] [address] [place] [address] Oct, Bipolar disorder, current ep isode depressed, moderate F31.32 ; Post-traumatic stress disorder, chronic F43.12 and Personality disorder, unspecified F60.9 [place] [address] [id number] [address] [place] [address] Oct, Bipolar disorder, current ep isode depressed, moderate F31.32 ; Post-traumatic stress disorder, chronic F43.12 and Personality disorder, unspecified F60.9 [place] [address] [facility] [id number] [address] [place] [address] Aug, Bipolar II disorder F31.81 a nd Post-traumatic stress disorder, unspecified F43.10 [place] [address] [facility] [id number] [address] [place] [address] Aug, Bipolar disorder, current ep isode depressed, moderate F31.32 ; Post-traumatic stress disorder, chronic F43.12 and Personality disorder, unspecified F60.9 [place] [address] [facility] [id number] [address] [place] [address] Jul, Bipolar disorder, unspecifie d 296.80 and Posttraumatic stress disorder 309.81 [place] [address] [facility] [id number] [address] [place] [address] Jul, Post-traumatic stress disord er, chronic F43.12 ; Personality disorder, unspecified F60.9 and Bipolar disorder, current episode depressed, moderate F31.32 [place] [address] [facility] [id number] [address] [place] [address] Jun, Bipolar disorder, unspecifie d 296.80 and Posttraumatic stress disorder 309.81 [place] [address] [facility] [id number] [address] [place] [address] Jun, Bipolar disorder, unspecifie d 296.80 and Posttraumatic stress disorder 309.81 [place] [address] [facility] [id number] [address] [place] [address] Jun, Posttraumatic stress disorde r 309.81 and Bipolar disorder, unspecified 296.80 [place] [address] [facility] [id number] [address] [place] [address] May, Bipolar II disorder 296.89 a nd Post traumatic stress disorder 309.81 [place] [address] [facility] [id number] [address] [place] [address] 18 May, 2015 Bipolar II disorder 296.89 a nd Post traumatic stress disorder 309.81 [place] [address] [id number] [address] [place] [address] May, 2014 [facility] [address] [id number] [address] [place] [address] May, [facility] [address] [facility] [id number] [address] [place] [address] May, 2014 [facility] [address] [facility] [id number] [address] [place] [address] May, [facility] [address] [id number] [address] [place] [address] May, Bipolar II disorder 296.89 a nd Post traumatic stress disorder 309.81 [facility] [address] [facility] [id number] [address] [place] [address] May, Bipolar I disorder, most rec ent episode (or current) depressed, moderate 296.52 ; Posttraumatic stress disorder 309.81 and Anxiety state, unspecified 300.00 [facility] [address] [facility] [id number] [address] [place] [address] Apr, Bipolar II disorder 296.89 a nd Post traumatic stress disorder 309.81 [facility] [address] [facility] [id number] [address] [place] [address] Apr, [facility] [address] [facility] [id number] [address] [place] [address] Apr, Bipolar II disorder 296.89 a nd Post traumatic stress disorder 309.81 [facility] [address] [facility] [id number] [address] [place] [address] Apr, Bipolar II disorder 296.89 a nd Post traumatic stress disorder 309.81 [facility] [address] [facility] [id number] [address] [place] [address] Mar, Bipolar II disorder 296.89 a nd Post traumatic stress disorder 309.81 [facility] [address] [facility] [id number] [address] [place] [address] Mar, [facility] [address] [facility] [id number] [address] [place] [address] Mar, Bipolar II disorder 296.89 a nd Post traumatic stress disorder 309.81 [facility] [address] [id number] [address] [place] [address] Mar, Bipolar II disorder 296.89 a nd Post traumatic stress disorder 309.81 [facility] [address] [facility] [id number] [address] [place] [address] Mar, Bipolar II disorder 296.89 a nd Post traumatic stress disorder 309.81 [facility] [address] [id number] [address] [place] [address] Mar, [facility] [address] [id number] [address] [place] [address] Mar, Bipolar II disorder 296.89 a nd Post traumatic stress disorder 309.81 [facility] [address] [facility] [id number] [address] [place] [address] Feb, Bipolar II disorder 296.89 a nd Post traumatic stress disorder 309.81 [facility] [address] [id number] [address] [place] [address] Feb, [facility] [address] [facility] [id number] [address] [place] [address] Feb, Bipolar disorder, unspecifie d 296.80 and Anxiety state, unspecified 300.00 [facility] [address] [facility] [id number] [address] [place] [address] Feb, [facility] [address] [facility] [id number] [address] [place] [address] Feb, [facility] [address] [facility] [id number] [address] [place] [address] January, [facility] [address] [facility] [id number] [address] [place] [address] Dec, [facility] [address] [facility] [id number] [address] [place] [address] Dec, [facility] [address] [id number] [address] [place] [address], [place] [address] Nov, [facility] [address] [id number] [address] [place] [address], [place] [address] Nov, [facility] [address] [id number] [address] [place] [address], [place] [address] Nov, [facility] [address] [id number] [address] [place] [address], [place] [address] Nov, [facility] [address] [id number] [address] [place] [address], [place] [address] Nov, [facility] [address] [id number] [address] [place] [address], [place] [address] Nov, [facility] [address] [id number] [address] [place] [address], [place] [address] Nov, [facility] [address] [id number] [address] [place] [address], [place] [address] Nov, [facility] [address] [id number] [address] [place] [address], [place] [address] Nov, [facility] [address] [id number] [address] [place] [address], [place] [address] Oct, [facility] [address] [id number] [address] [place] [address], [place] [address] Oct, [facility] [address] [id number] [address] [place] [address], [place] [address] Oct, [facility] [address] [id number] [address] [place] [address], [place] [address] Oct, [facility] [address] [id number] [address] [place] [address], [place] [address] Oct, [facility] [address] [id number] [address] [place] [address], [place] [address] Oct, [facility] [address] [id number] [address] [place] [address], [place] [address] 04 Oct, 2014 [facility] [address] [id number] [address] [place] [address], [place] [address] Oct, [facility] [address] [id number] [address] [place] [address], [place] [address] Sep, [facility] [address] [id number] [address] [place] [address], [place] [address] Sep, [facility] [address] [id number] [address] [place] [address], [place] [address] Sep, [facility] [address] [id number] [address] [place] [address], [place] [address] Sep, [facility] [address] [id number] [address] [place] [address], [place] [address] Sep, [facility] [address] [id number] [address] [place] [address], [place] [address] Sep, [facility] [address] [id number] [address] [place] [address], [place] [address] Sep, [facility] [address] [id number] [address] [place] [address], [place] [address] Sep, [facility] [address] [id number] [address] [place] [address], [place] [address] Sep, [facility] [address] [id number] [address] [place] [address], [place] [address] Sep, [facility] [address] [id number] [address] [place] [address], [place] [address] Aug, [facility] [address] [id number] [address] [place] [address], [place] [address] Aug, [facility] [address] [id number] [address] [place] [address], [place] [address] Aug, [facility] [address] [id number] [address] [place] [address], [place] [address] Aug, [facility] [address] [id number] [address] [place] [address], [place] [address] Aug, [facility] [address] [id number] [address] [place] [address], [place] [address] Aug, [facility] [address] [id number] [address] [place] [address], [place] [address] Aug, [facility] [address] [id number] [address] [place] [address], [place] [address] Aug, [facility] [address] [id number] [address] [place] [address], [place] [address] Jul, [facility] [address] [id number] [address] [place] [address], [place] [address] Jul, [facility] [address] [id number] [address] [place] [address], [place] [address] Jul, [facility] [address] [id number] [address] [place] [address], [place] [address] Jul, [facility] [address] [id number] [address] [place] [address], [place] [address] Jul, [facility] [address] [id number] [address] [place] [address], [place] [address] Jul, [facility] [address] [id number] [address] [place] [address], [place] [address] Jul, [facility] [address] [id number] [address] [place] [address], [place] [address] Jul, [facility] [address] [id number] [address] [place] [address], [place] [address] Jul, [facility] [address] [id number] [address] [place] [address], [place] [address] Jun, [facility] [address] [id number] [address] [place] [address], [place] [address] Jun, [facility] [address] [id number] [address] [place] [address], [place] [address] Jun, [facility] [address] [id number] [address] [place] [address], [place] [address] Jun, [facility] [address] [id number] [address] [place] [address], [place] [address] Jun, [facility] [address] [id number] [address] [place] [address], [place] [address] Jun, [facility] [address] [id number] [address] [place] [address], [place] [address] May, [facility] [address] [id number] [address] [place] [address], [place] [address] May, [facility] [address] [id number] [address] [place] [address], [place] [address] May, [facility] [address] [address] [id number] [address] [place] [address], [place] [address] May, [facility] [address] [id number] [address] [place] [address], [place] [address] May, [facility] [address] [id number] [address] [place] [address], [place] [address] May, [facility] [address] [id number] [address] [place] [address], [place] [address] Apr, [facility] [address] [id number] [address] [place] [address], [place] [address] Apr, [facility] [address] [id number] [address] [place] [address], [place] [address] Apr, [facility] [address] [id number] [address] [place] [address], [place] [address] Apr, [facility] [address] [id number] [address] [place] [address], [place] [address] Apr, [facility] [address] [id number] [address] [place] [address], [place] [address] Apr, [facility] [address] [id number] [facility] [place] [address] Mar, 2013 [facility] [address] [id number] [facility] [place] [address] Mar, 2013 [facility] [address] [id number] [facility] [place] [address] Mar, 2013 [facility] [address] [id number] [address] [place] [address], [place] [address] Mar, 2013 [facility] [address] [id number] [address] [place] [address], [place] [address] Mar, 2013 [facility] [address] [id number] [address] [place] [address], [place] [address] Mar, 2013 [facility] [address] [id number] [address] [place] [address], [place] [address] Mar, 2013 [facility] [address] [id number] [address] [place] [address], [place] [address] Mar, 2013 [facility] [address] [id number] [address] [place] [address], [place] [address] Mar, 2013 [facility] [address] [id number] [address] [place] [address], [place] [address] Mar, 2013 [facility] [address] [id number] [address] [place] [address], [place] [address] Mar, 2013 [facility] [address] [id number] [address] [place] [address], [place] [address] Mar, 2013 [facility] [address] [id number] [address] [place] [address], [place] [address] Mar, 2013 [facility] [address] [id number] [address] [place] [address], [place] [address] Mar, 2013 [facility] [address] [id number] [address] [place] [address], [place] [address] Mar, 2013 [facility] [address] [id number] [address] [place] [address], [place] [address] Mar, [facility] [address] [id number] [address] [place] [address], [place] [address] Feb, [facility] [address] [id number] [address] [place] [address], [place] [address] Feb, [facility] [address] [id number] [address] [place] [address], [place] [address] Feb, [facility] [address] [id number] [address] [place] [address], [place] [address] Feb, [facility] [address] [id number] [address] [place] [address], [place] [address] Feb, [facility] [address] [id number] [address] [place] [address], [place] [address] Feb, [facility] [address] [id number] [address] [place] [address], [place] [address] Feb, [facility] [address] [id number] [address] [place] [address], [place] [address] Feb, [facility] [address] [id number] [address] [place] [address], [place] [address] Feb, [facility] [address] [id number] [address] [place] [address], [place] [address] Feb, [facility] [address] [id number] [address] [place] [address], [place] [address] Feb, [facility] [address] [id number] [address] [place] [address], [place] [address] Feb, [facility] [address] [id number] [address] [place] [address], [place] [address] Feb, [facility] [address] [id number] [address] [place] [address], [place] [address] January, [facility] [address] [id number] [address] [place] [address], [place] [address] January, [facility] [address] [id number] [address] [place] [address] January, [facility] [address] [id number] [facility] [place] [address] January, [facility] [address] [id number] [address] [place] [address], [place] [address] January, [facility] [address] [id number] [address] [place] [address], [place] [address] January, [facility] [address] [id number] [address] [place] [address], [place] [address] January, [facility] [address] [id number] [address] [place] [address], [place] [address] January, [facility] [address] [id number] [address] [place] [address], [place] [address] January, [facility] [address] [id number] [address] [place] [address], [place] [address] January, [facility] [address] [id number] [address] [place] [address], [place] [address] January, [facility] [address] [id number] [address] [place] [address], [place] [address] January, [facility] [address] [id number] [address] [place] [address], [place] [address] January, [facility] [address] [id number] [address] [place] [address], [place] [address] January, [facility] [address] [id number] [address] [place] [address], [place] [address] Dec, [facility] [address] [id number] [address] [place] [address], [place] [address] Dec, [facility] [address] [id number] [address] [place] [address], [place] [address] Dec, [facility] [address] [id number] [address] [place] [address], [place] [address] Dec, [facility] [address] [id number] [facility] [place] [address] 10 Dec, 2013 [facility] [address] [id number] [address] [place] [address], [place] [address] Dec, [facility] [address] [id number] [address] [place] [address], [place] [address] Dec, [facility] [address] [id number] [address] [place] [address], [place] [address] Dec, [facility] [address] [id number] [address] [place] [address], [place] [address] Nov, [facility] [address] [id number] [address] [place] [address], [place] [address] Nov, [facility] [address] [id number] [address] [place] [address], [place] [address] Nov, [facility] [address] [id number] [address] [place] [address], [place] [address] Nov, [facility] [address] [id number] [address] [place] [address], [place] [address] Oct, [facility] [address] [id number] [address] [place] [address], [place] [address] Oct, [facility] [address] [id number] [address] [place] [address], [place] [address] Oct, [facility] [address] [id number] [address] [place] [address], [place] [address] Oct, [facility] [address] [id number] [address] [place] [address], [place] [address] Oct, [facility] [address] [id number] [address] [place] [address], [place] [address] Oct, [facility] [address] [id number] [address] [place] [address], [place] [address] Sep, [facility] [address] [id number] [address] [place] [address], [place] [address] Sep, [facility] [address] [id number] [address] [place] [address], [place] [address] Sep, [facility] [address] [id number] [address] [place] [address], [place] [address] Sep, [facility] [address] [id number] [address] [place] [address], [place] [address] Sep, [facility] [address] [id number] [address] [place] [address], [place] [address] Sep, [facility] [address] [id number] [address] [place] [address], [place] [address] Sep, [facility] [address] [id number] [address] [place] [address], [place] [address] Sep, [facility] [address] [id number] [address] [place] [address], [place] [address] Sep, [facility] [address] [id number] [address] [place] [address], [place] [address] Sep, [facility] [address] [id number] [address] [place] [address], [place] [address] Aug, [facility] [address] [id number] [address] [place] [address], [place] [address] Aug, [facility] [address] [id number] [address] [place] [address], [place] [address] Aug, [facility] [address] [id number] [address] [place] [address], [place] [address] Aug, [facility] [address] [id number] [address] [place] [address], [place] [address] Aug, [facility] [address] [id number] [address] [place] [address], [place] [address] Aug, [facility] [address] [id number] [address] [place] [address], [place] [address] Aug, [facility] [address] [id number] [address] [place] [address], [place] [address] Aug, [facility] [address] [id number] [address] [place] [address], [place] [address] Jul, [facility] [address] [id number] [address] [place] [address], [place] [address] Jul, [facility] [address] [id number] [address] [place] [address], [place] [address] Jul, [facility] [address] [id number] [address] [place] [address], [place] [address] Jul, [facility] [address] [id number] [address] [place] [address], [place] [address] Jul, [facility] [address] [id number] [address] [place] [address], [place] [address] Jul, [facility] [address] [id number] [address] [place] [address], [place] [address] Jul, [facility] [address] [id number] [address] [place] [address], [place] [address] Jul, [facility] [address] [id number] [address] [place] [address], [place] [address] Jul, [facility] [address] [id number] [address] [place] [address], [place] [address] Jul, [facility] [address] [id number] [address] [place] [address], [place] [address] Jul, [facility] [address] [id number] [address] [place] [address], [place] [address] Jul, [facility] [address] [id number] [address] [place] [address], [place] [address] Jun, [facility] [address] [id number] [address] [place] [address], [place] [address] Jun, [facility] [address] [id number] [address] [place] [address], [place] [address] Jun, [facility] [address] [id number] [address] [place] [address], [place] [address] Jun, [facility] [address] [id number] [address] [place] [address], [place] [address] 23 Jun, 2013 [facility] [address] [id number] [address] [place] [address], [place] [address] 16 Jun, 2013 [facility] [address] [id number] [address] [place] [address], [place] [address] 16 Jun, 2013 [facility] [address] [id number] [address] [place] [address], [place] [address] 02 Jun, 2013 [facility] [address] [id number] [address] [place] [address], [place] [address] 25 May, 2013 [facility] [address] [id number] [address] [place] [address], [place] [address] 18 May, 2013 [facility] [address] [id number] [address] [place] [address], [place] [address] 11 May, 2013 [facility] [address] [id number] [address] [place] [address], [place] [address] 10 May, 2013 [facility] [address] [id number] [address] [place] [address], [place] [address] 09 May, 2013 [facility] [address] [id number] [address] [place] [address], [place] [address] 04 May, 2013 [facility] [address] [id number] [address] [place] [address], [place] [address] 30 Apr, 2013 [facility] [address] [id number] [address] [place] [address], [place] [address] 27 Apr, 2013 [facility] [address] [id number] [address] [place] [address], [place] [address] Apr, [facility] [address] [id number] [address] [place] [address], [place] [address] 14 Apr, 2013 [facility] [address] [id number] [address] [place] [address] Apr, [facility] [address] [id number] [address] [place] [id number] Mar, [facility] [address] [id number] [address] [place] [address] Mar, [facility] [address] [id number] [address] [place] [address] Mar, [facility] [address] [id number] [address] [place] [address] Feb, [facility] [address] [id number] [address] [place] [address] Feb, [facility] [address] [id number] [address] [place] [address] Feb, [facility] [address] [id number] [address] [place] [address] January, [facility] [address] [id number] [address] [place] [address] January, [facility] [address] [id number] [address] [place] [address] Dec, [facility] [address] [id number] [address] [place] [id number] Nov, [facility] [address] [id number] [address] [place] [address] Nov, IMMUNIZATIONS No Known Immunizations SOCIAL HISTORY Never Assessed REASON FOR VISIT PLAN OF CARE VITAL SIGNS MEDICATIONS Unknown Medications RESULTS No Results PROCEDURES Procedure Date Ordered Result Body Site PSYTX PT&/FAMILY 45 MINUTES May 31, 2013 INSTRUCTIONS MEDICATIONS ADMINISTERED No Known Medications [...]
--- OUTSIDE RECORDS SUMMARY | 2020-03-26 15:21 | XMS REPORT ---
Author Author Shireen YOUNGER [facility] Address [address] [place] [address] Care Team Providers Care Commercial Singer Name Role Phone PEMA YOUNGER Unavailable PROBLEMS Type Condition ICD9-CM Code JJY31-KE Code Onset Dates Condition S tatus SNOMED Code Problem Personality disorder, unspecified F60.9 Active 38986951 Problem Rheumatoid arthritis involvi ng multiple sites, unspecified rheumatoid factor presence M06.9 Active 31527362 Problem Rheumatoid arthritis with po sitive rheumatoid factor, involving unspecified site M05.9 Active 240685761 Problem Post-traumatic stress disorder, chronic F43.12 Active 40390461 Problem Bipolar disorder, current episode depressed, moderate F31.32 Active 727537368 Problem Anorexia nervosa F50.00 Active 568 11885 Problem intermission coordinator systemic steroid user Z79.52 Active [id number] ALLERGIES No Information ENCOUNTERS Encounter Location Date Diagnosis [address] [id number] [place] [address] Mar, [address] [id number] [place] [address] Feb, [address] [id number] [place] [address] Feb, [address] [id number] [place] [address] Feb, [address] [id number] [address] January, Rheumatoid arthritis with po sitive rheumatoid factor, involving unspecified site M05.[address] [id number] [place] [address] January, [address] [id number] [place] [address] January, [address] [id number] [place] [address] January, [address] [id number] [place] [address] January, Bipolar disorder, current ep isode depressed, moderate F31.[address] [id number] [place] [address] January, Bipolar disorder, current ep isode depressed, moderate F31.[address] [id number] [place] [address] January, [address] [id number] [place] [address] January, [address] [id number] [place] [address] January, [address] [id number] [place] [address] January, [facility] [address] [facility] [id number] [address] [place] [address] January, Bipolar disorder, current ep isode depressed, moderate F31.32 ; Post-traumatic stress disorder, chronic F43.12 and Anorexia nervosa F50.00 [facility] [address] [place] [address] January, [facility] resident Z59.3 ; Rheumatoid arthritis involving multiple sites, unspecified rheumatoid factor presence M06.9 ; Post-traumatic stress disorder, chronic F43.12 and Bipolar disorder, current episode depressed, moderate F31.[address] [id number] [place] [address] January, [facility] [address] [facility] [id number] [address] [place] [address] Dec, Bipolar disorder, current ep isode depressed, moderate F31.32 ; Post-traumatic stress disorder, chronic F43.12 and Anorexia nervosa F50.00 [facility] [address] [id number] [address] [place] [address] 22 Dec, 2019 Bipolar disorder, current ep isode depressed, moderate F31.32 ; Post-traumatic stress disorder, chronic F43.12 and Anorexia nervosa F50.[id number] [place] [address] 16 Dec, 2019 Bipolar disorder, current ep isode depressed, moderate F31.32 [facility] [address] [id number] [address] [place] [address] 15 Dec, 2019 [facility] [address] [facility] [id number] [address] [place] [address] 15 Dec, 2019 Bipolar disorder, current ep isode depressed, moderate F31.32 ; Post-traumatic stress disorder, chronic F43.12 and Anorexia nervosa F50.00 [facility] [address] [place] [address] 15 Dec, 2019 Bipolar disorder, current episode depressed, moderate F31.32 and Rheumatoid arthritis involving multiple sites, unspecified rheumatoid factor presence M06.9 [facility] [address] [id number] [address] [place] [address] 14 Dec, 2019 [facility] [address] [facility] [id number] [address] [place] [address] 09 Dec, 2019 Bipolar disorder, current ep isode depressed, moderate F31.32 ; Post-traumatic stress disorder, chronic F43.12 and Anorexia nervosa F50.00 [facility] [address] [id number] [address] [place] [address] 08 Dec, 2019 Bipolar disorder, current ep isode depressed, moderate F31.32 ; Post-traumatic stress disorder, chronic F43.12 and Anorexia nervosa F50.00 [facility] [address] [facility] [id number] [address] [place] [address] 07 Dec, 2019 [facility] [address] [facility] [id number] [address] [place] [address] 04 Dec, 2019 [facility] [address] [facility] [id number] [place] [address] Nov, [facility] [address] [facility] [id number] [address] [place] [address] Nov, [facility] [address] [facility] [id number] [address] [place] [address] Nov, [facility] [address] [facility] [id number] [place] [address] Oct, Rheumatoid arthritis involving multiple sites, unspecified rheumatoid factor presence M06.9 [facility] [place] [address] [facility] [id number] [place] [address] Oct, [facility] systemic steroid user Z79.52 [facility] [address] [facility] [id number] [place] [address] Oct, Bipolar disorder, current episode depressed, moderate F31.32 ; Anorexia nervosa F50.00 ; Rheumatoid arthritis involving multiple sites, unspecified rheumatoid factor presence M06.9 and intermission coordinator systemic steroid user Z79.52 [facility] [address] [facility] [id number] [address] [place] [address] Sep, [facility] [address] [place] [id number] [address] [place] [address] Sep, Bipolar disorder, current ep isode depressed, moderate F31.32 ; Post-traumatic stress disorder, chronic F43.12 and Anorexia nervosa F50.00 [facility] [address] [place] [id number] [address] [place] [address] Sep, [facility] [address] [facility] [id number] [address] [place] [address] Aug, [facility] [address] [place] [id number] [address] [place] [address] Aug, [facility] [address] [facility] [id number] [address] [place] [address] Aug, [facility] [address] [place] [id number] [address] [place] [address] Aug, Bipolar disorder, current ep isode depressed, moderate F31.32 ; Post-traumatic stress disorder, chronic F43.12 ; Anorexia nervosa F50.00 and Personality disorder, unspecified F60.9 [facility] [address] [id number] [address] [place] [address] Jul, Bipolar disorder, current ep isode depressed, moderate F31.32 and Anorexia nervosa F50.00 [facility] [address] [id number] [address] [place] [address] Jul, [facility] [address] [id number] [address] [place] [address] Jul, [place] [address] [id number] [address] [place] [address] Jul, [facility] [address] [id number] [address] [place] [address] Jun, Bipolar disorder, current ep isode depressed, moderate F31.32 ; Post-traumatic stress disorder, chronic F43.12 and Eating disorder, unspecified F50.9 [place] [address] [id number] [address] [place] [address] May, [facility] [address] [id number] [address] [place] [address] Apr, Bipolar disorder, current ep isode depressed, moderate F31.32 ; Post-traumatic stress disorder, chronic F43.12 and Eating disorder, unspecified F50.9 [facility] [address] [id number] [address] [place] [address] Feb, Bipolar disorder, current ep isode depressed, moderate F31.32 ; Post-traumatic stress disorder, chronic F43.12 and Personality disorder, unspecified F60.9 [facility] [address] [id number] [address] [place] [address] 14 Feb, 2016 Bipolar II disorder F31.81 [facility] [address] [id number] [address] [place] [address] Dec, Bipolar disorder, current ep isode depressed, moderate F31.32 ; Post-traumatic stress disorder, chronic F43.12 and Personality disorder, unspecified F60.9 [facility] [address] [id number] [address] [place] [address] Dec, Bipolar disorder, current ep isode depressed, moderate F31.32 ; Post-traumatic stress disorder, chronic F43.12 and Personality disorder, unspecified F60.9 [facility] [address] [id number] [address] [place] [address] Dec, [facility] [address] [id number] [address] [place] [address] Dec, [place] [address] [id number] [address] [place] [address] Dec, Bipolar disorder, current ep isode depressed, moderate F31.32 ; Post-traumatic stress disorder, chronic F43.12 and Personality disorder, unspecified F60.9 [place] [id number] [id number] [address] [place] [address] Nov, [place] [id number] [id number] [address] [place], [place] [address] Nov, Bipolar disorder, current ep isode depressed, moderate F31.32 ; Post-traumatic stress disorder, chronic F43.12 and Personality disorder, unspecified F60.9 [place] [address] [id number] [address] [place] [address] Nov, Bipolar disorder, current ep isode depressed, moderate F31.32 ; Post-traumatic stress disorder, chronic F43.12 and Personality disorder, unspecified F60.9 [facility] [address] [id number] [address] [place] [address] Oct, [facility] [address] [id number] [address] [place] [address] Oct, Bipolar disorder, current ep isode depressed, moderate F31.32 ; Post-traumatic stress disorder, chronic F43.12 and Personality disorder, unspecified F60.9 [place] [address] [facility] [id number] [address] [place] [address] Oct, Bipolar disorder, current ep isode depressed, moderate F31.32 ; Post-traumatic stress disorder, chronic F43.12 and Personality disorder, unspecified F60.9 [place] [address] [facility] [id number] [address] [place] [address] Aug, Bipolar II disorder F31.81 a nd Post-traumatic stress disorder, unspecified F43.10 [place] [address] [facility] [id number] [address] [place] [address] Aug, Bipolar disorder, current ep isode depressed, moderate F31.32 ; Post-traumatic stress disorder, chronic F43.12 and Personality disorder, unspecified F60.9 [place] [address] [facility] [id number] [address] [place] [address] Jul, Bipolar disorder, unspecifie d 296.80 and Posttraumatic stress disorder 309.81 [place] [address] [place] [id number] [address] [place] [address] Jul, Post-traumatic stress disord er, chronic F43.12 ; Personality disorder, unspecified F60.9 and Bipolar disorder, current episode depressed, moderate F31.32 [place] [address] [place] [id number] [address] [place] [address] Jun, Bipolar disorder, unspecifie d 296.80 and Posttraumatic stress disorder 309.81 [place] [address] [facility] [id number] [address] [place] [address] Jun, Bipolar disorder, unspecifie d 296.80 and Posttraumatic stress disorder 309.81 [place] [address] [facility] [id number] [address] [place] [address] Jun, Posttraumatic stress disorde r 309.81 and Bipolar disorder, unspecified 296.80 [place] [address] [facility] [id number] [address] [place] [address] May, Bipolar II disorder 296.89 a nd Post traumatic stress disorder 309.81 [facility] [address] [id number] [address] [place] [address] May, Bipolar II disorder 296.89 a nd Post traumatic stress disorder 309.81 [facility] [address] [id number] [address] [place] [address] May, 2014 [facility] [address] [id number] [address] [place] [address] May, 2014 [facility] [address] [id number] [address] [place] [address] May, 2014 [facility] [address] [id number] [address] [place] [address] May, 2014 [facility] [address] [facility] [id number] [address] [place] [address] May, Bipolar II disorder 296.89 a nd Post traumatic stress disorder 309.81 [facility] [address] [id number] [address] [place] [address] May, Bipolar I disorder, most rec ent episode (or current) depressed, moderate 296.52 ; Posttraumatic stress disorder 309.81 and Anxiety state, unspecified 300.00 [facility] [address] [facility] [id number] [address] [place] [address] Apr, Bipolar II disorder 296.89 a nd Post traumatic stress disorder 309.81 [facility] [address] [id number] [address] [place] [address] Apr, [facility] [address] [id number] [address] [place] [address] Apr, Bipolar II disorder 296.89 a nd Post traumatic stress disorder 309.81 [facility] [address] [facility] [id number] [address] [place] [address] Apr, Bipolar II disorder 296.89 a nd Post traumatic stress disorder 309.81 [facility] [address] [facility] [id number] [address] [place] [address] Mar, Bipolar II disorder 296.89 a nd Post traumatic stress disorder 309.81 [facility] [address] [id number] [address] [place] [address] Mar, [facility] [address] [facility] [id number] [address] [place] [address] Mar, Bipolar II disorder 296.89 a nd Post traumatic stress disorder 309.81 [facility] [address] [facility] [id number] [address] [place] [address] Mar, Bipolar II disorder 296.89 a nd Post traumatic stress disorder 309.81 [facility] [address] [id number] [address] [place] [address] Mar, Bipolar II disorder 296.89 a nd Post traumatic stress disorder 309.81 [facility] [address] [facility] [id number] [address] [place] [address] Mar, [facility] [address] [facility] [id number] [address] [place] [address] Mar, Bipolar II disorder 296.89 a nd Post traumatic stress disorder 309.81 [facility] [address] [facility] [id number] [address] [place] [address] Feb, Bipolar II disorder 296.89 a nd Post traumatic stress disorder 309.81 [facility] [address] [facility] [id number] [address] [place] [address] Feb, [facility] [address] [facility] [id number] [address] [place] [address] Feb, Bipolar disorder, unspecifie d 296.80 and Anxiety state, unspecified 300.00 [facility] [address] [id number] [address] [place] [address] Feb, [facility] [address] [facility] [id number] [address] [place] [address] Feb, [facility] [address] [facility] [id number] [address] [place] [address] January, [facility] [address] [id number] [address] [place] [address], [place] [address] 14 Dec, 2014 [facility] [address] [id number] [address] [place] [address], [place] [address] Dec, [facility] [address] [id number] [address] [place] [address], [place] [address] Nov, [facility] [address] [id number] [address] [place] [address], [place] [address] Nov, [facility] [address] [id number] [address] [place] [address], [place] [address] Nov, [facility] [address] [id number] [address] [place] [address], [place] [address] Nov, [facility] [address] [id number] [address] [place] [address], [place] [address] Nov, [facility] [address] [id number] [address] [place] [address], [place] [address] Nov, [facility] [address] [id number] [address] [place] [address], [place] [address] Nov, [facility] [address] [id number] [address] [place] [address], [place] [address] Nov, [facility] [address] [id number] [address] [place] [address], [place] [address] Nov, [facility] [address] [id number] [address] [place] [address], [place] [address] Oct, [facility] [address] [id number] [address] [place] [address], [place] [address] Oct, [facility] [address] [id number] [address] [place] [address], [place] [address] Oct, [facility] [address] [id number] [address] [place] [address], [place] [address] Oct, [facility] [address] [id number] [address] [place] [address] Oct, [facility] [address] [id number] [address] [place] [address], [place] [address] Oct, [facility] [address] [id number] [address] [place] [address], [place] [address] Oct, [facility] [address] [id number] [address] [place] [address], [place] [address] Oct, [facility] [address] [id number] [address] [place] [address], [place] [address] Sep, [facility] [address] [id number] [address] [place] [address], [place] [address] Sep, [facility] [address] [id number] [address] [place] [address], [place] [address] Sep, [facility] [address] [id number] [address] [place] [address], [place] [address] Sep, [facility] [address] [id number] [address] [place] [address], [place] [address] Sep, [facility] [address] [id number] [address] [place] [address], [place] [address] Sep, [facility] [address] [id number] [address] [place] [address], [place] [address] Sep, [facility] [address] [id number] [address] [place] [address], [place] [address] Sep, [facility] [address] [id number] [address] [place] [address], [place] [address] Sep, [facility] [address] [id number] [address] [place] [address], [place] [address] Sep, [facility] [address] [id number] [address] [place] [address], [place] [address] Aug, [facility] [address] [id number] [address] [place] [address], [place] [address] Aug, [facility] [address] [id number] [address] [place] [address], [place] [address] Aug, [facility] [address] [id number] [address] [place] [address], [place] [address] Aug, [facility] [address] [id number] [address] [place] [address], [place] [address] Aug, [facility] [address] [id number] [address] [place] [address], [place] [address] Aug, [facility] [address] [id number] [address] [place] [address], [place] [address] Aug, [facility] [address] [id number] [address] [place] [address], [place] [address] Aug, [facility] [address] [id number] [address] [place] [address], [place] [address] Jul, [facility] [address] [id number] [address] [place] [address], [place] [address] Jul, [facility] [address] [id number] [address] [place] [address], [place] [address] Jul, [facility] [address] [id number] [address] [place] [address], [place] [address] Jul, [facility] [address] [id number] [address] [place] [address], [place] [address] Jul, [facility] [address] [id number] [address] [place] [address], [place] [address] Jul, [facility] [address] [id number] [address] [place] [address], [place] [address] Jul, [facility] [address] [id number] [address] [place] [address], [place] [address] Jul, [facility] [address] [id number] [address] [place] [address], [place] [address] Jul, [facility] [address] [id number] [address] [place] [address], [place] [address] Jun, [facility] [address] [id number] [address] [place] [address], [place] [address] Jun, [facility] [address] [id number] [address] [place] [address], [place] [address] Jun, [facility] [address] [id number] [address] [place] [address], [place] [address] Jun, [facility] [address] [id number] [address] [place] [address], [place] [address] Jun, [facility] [address] [id number] [address] [place] [address], [place] [address] Jun, [facility] [address] [id number] [address] [place] [address], [place] [address] May, [facility] [address] [id number] [address] [place] [address], [place] [address] May, [facility] [address] [id number] [address] [place] [address], [place] [address] 16 May, 2014 [facility] [address] [id number] [address] [place] [address], [place] [address] 16 May, 2014 [facility] [address] [id number] [address] [place] [address], [place] [address] May, [facility] [address] [id number] [address] [place] [address], [place] [address] May, [facility] [address] [id number] [address] [place] [address], [place] [address] Apr, [facility] [address] [id number] [address] [place] [address], [place] [address] Apr, [facility] [address] [id number] [address] [place] [address], [place] [address] Apr, [facility] [address] [id number] [address] [place] [address], [place] [address] Apr, [facility] [address] [id number] [facility] [place] [address] Apr, [facility] [address] [id number] [address] [place] [address], [place] [address] Apr, [facility] [address] [id number] [facility] [place] [address] Mar, [facility] [address] [id number] [address] [place] [address], [place] [address] Mar, [facility] [address] [id number] [address] [place] [address], [place] [address] Mar, [facility] [address] [id number] [address] [place] [address], [place] [address] Mar, [facility] [address] [id number] [address] [place] [address], [place] [address] Mar, [facility] [address] [id number] [address] [place] [address], [place] [address] Mar, [facility] [address] [id number] [address] [place] [address], [place] [address] Mar, [facility] [address] [id number] [address] [place] [address], [place] [address] Mar, [facility] [address] [id number] [address] [place] [address], [place] [address] Mar, [facility] [address] [id number] [address] [place] [address], [place] [address] Mar, [facility] [address] [id number] [address] [place] [address], [place] [address] Mar, [facility] [address] [id number] [address] [place] [address], [place] [address] Mar, [facility] [address] [id number] [address] [place] [address], [place] [address] Mar, [facility] [address] [id number] [address] [place] [address], [place] [address] Mar, [facility] [address] [id number] [address] [place] [address], [place] [address] Mar, [facility] [address] [id number] [address] [place] [address], [place] [address] Mar, [facility] [address] [id number] [address] [place] [address], [place] [address] Feb, [facility] [address] [id number] [address] [place] [address], [place] [address] Feb, [facility] [address] [id number] [address] [place] [address], [place] [address] Feb, [facility] [address] [id number] [address] [place] [address], [place] [address] Feb, [facility] [address] [id number] [address] [place] [address], [place] [address] Feb, [facility] [address] [id number] [address] [place] [address], [place] [address] Feb, [facility] [address] [id number] [address] [place] [address], [place] [address] Feb, [facility] [address] [id number] [address] [place] [address], [place] [address] Feb, [facility] [address] [id number] [address] [place] [address], [place] [address] Feb, [facility] [address] [id number] [address] [place] [address], [place] [address] Feb, [facility] [address] [id number] [address] [place] [address], [place] [address] Feb, [facility] [address] [id number] [address] [place] [address], [place] [address] Feb, [facility] [address] [id number] [address] [place] [address], [place] [address] Feb, [facility] [address] [id number] [address] [place] [id number] January, [facility] [address] [id number] [address] [place] [address], [place] [address] January, [facility] [address] [id number] [address] [place] [address], [place] [address] January, [facility] [address] [id number] [address] [place] [address], [place] [address] January, [facility] [address] [id number] [address] [place] [address], [place] [address] January, [facility] [address] [id number] [address] [place] [address], [place] [address] January, [facility] [address] [id number] [address] [place] [address], [place] [address] January, [facility] [address] [id number] [address] [place] [address], [place] [address] January, [facility] [address] [id number] [address] [place] [address], [place] [address] January, [facility] [address] [id number] [address] [place] [address], [place] [address] January, [facility] [address] [id number] [address] [place] [address], [place] [address] January, [facility] [address] [id number] [address] [place] [address], [place] [address] January, [facility] [address] [id number] [address] [place] [address], [place] [address] January, [facility] [address] [id number] [address] [place] [address], [place] [address] January, [facility] [address] [id number] [address] [place] [address], [place] [address] Dec, [facility] [address] [id number] [address] [place] [address], [place] [address] Dec, [facility] [address] [id number] [facility] [place] [address] Dec, [facility] [address] [id number] [facility] [place] [address] Dec, [facility] [address] [id number] [address] [place] [address], [place] [address] Dec, [facility] [address] [id number] [address] [place] [address], [place] [address] Dec, [facility] [address] [id number] [address] [place] [address], [place] [address] Dec, [facility] [address] [id number] [address] [place] [address], [place] [address] Dec, [facility] [address] [id number] [address] [place] [address], [place] [address] Nov, [facility] [address] [id number] [address] [place] [address], [place] [address] Nov, [facility] [address] [id number] [address] [place] [address], [place] [address] Nov, [facility] [address] [id number] [address] [place] [address], [place] [address] Nov, [facility] [address] [id number] [address] [place] [address], [place] [address] Oct, [facility] [address] [id number] [address] [place] [address], [place] [address] Oct, [facility] [address] [id number] [address] [place] [address], [place] [address] Oct, [facility] [address] [id number] [address] [place] [address], [place] [address] Oct, [facility] [address] [id number] [address] [place] [address], [place] [address] 13 Oct, 2013 [facility] [address] [id number] [address] [place] [address], [place] [address] Oct, [facility] [address] [id number] [address] [place] [address], [place] [address] Sep, [facility] [address] [id number] [address] [place] [address], [place] [address] Sep, [facility] [address] [id number] [address] [place] [address], [place] [address] Sep, [facility] [address] [id number] [address] [place] [address], [place] [address] Sep, [facility] [address] [id number] [address] [place] [address], [place] [address] Sep, [facility] [address] [id number] [address] [place] [address], [place] [address] Sep, [facility] [address] [id number] [address] [place] [address], [place] [address] Sep, [facility] [address] [id number] [address] [place] [address], [place] [address] Sep, [facility] [address] [id number] [address] [place] [address], [place] [address] Sep, [facility] [address] [id number] [address] [place] [address], [place] [address] Sep, [facility] [address] [id number] [address] [place] [address], [place] [address] Aug, [facility] [address] [id number] [address] [place] [address], [place] [address] Aug, [facility] [address] [id number] [address] [place] [address], [place] [address] Aug, [facility] [address] [id number] [address] [place] [address], [place] [address] Aug, [facility] [address] [id number] [address] [place] [address], [place] [address] Aug, [facility] [address] [id number] [address] [place] [address], [place] [address] Aug, [facility] [address] [id number] [address] [place] [address], [place] [address] Aug, [facility] [address] [id number] [address] [place] [address], [place] [address] Aug, [facility] [address] [id number] [address] [place] [address], [place] [address] Jul, [facility] [address] [id number] [address] [place] [address], [place] [address] Jul, [facility] [address] [id number] [address] [place] [address], [place] [address] Jul, [facility] [address] [id number] [address] [place] [address], [place] [address] Jul, [facility] [address] [id number] [address] [place] [address], [place] [address] Jul, [facility] [address] [id number] [address] [place] [address], [place] [address] Jul, [facility] [address] [id number] [address] [place] [address], [place] [address] Jul, [facility] [address] [id number] [address] [place] [address], [place] [address] Jul, [facility] [address] [id number] [address] [place] [address], [place] [address] Jul, [facility] [address] [id number] [address] [place] [address], [place] [address] Jul, [facility] [address] [id number] [address] [place] [address], [place] [address] Jul, [facility] [address] [id number] [address] [place] [address], [place] [address] Jul, [facility] [address] [id number] [address] [place] [address], [place] [address] Jun, [facility] [address] [id number] [address] [place] [address], [place] [address] Jun, [facility] [address] [id number] [address] [place] [address], [place] [address] Jun, [facility] [address] [id number] [address] [place] [address], [place] [address] Jun, [facility] [address] [id number] [address] [place] [address], [place] [address] Jun, [facility] [address] [id number] [address] [place] [address], [place] [address] Jun, [facility] [address] [id number] [address] [place] [address], [place] [address] Jun, [facility] [address] [id number] [address] [place] [address], [place] [address] Jun, [facility] [address] [id number] [address] [place] [address], [place] [address] 25 May, 2013 [facility] [address] [id number] [address] [place] [address], [place] [address] 18 May, 2013 [facility] [address] [id number] [address] [place] [address], [place] [address] 11 May, 2013 [facility] [address] [id number] [address] [place] [address], [place] [address] 10 May, 2013 [facility] [address] [id number] [address] [place] [id number] 09 May, 2013 [facility] [address] [id number] [address] [place] [address], [place] [address] 04 May, 2013 [facility] [address] [id number] [address] [place] [address], [place] [address] 30 Apr, 2013 [facility] [address] [id number] [address] [place] [address], [place] [address] Apr, [facility] [address] [id number] [address] [place] [id number] Apr, [facility] [address] [id number] [address] [place] [id number] Apr, [facility] [address] [id number] [address] [place] [id number] Apr, [facility] [address] [id number] [address] [place] [id number] Mar, [facility] [address] [id number] [address] [place] [id number] Mar, [facility] [address] [id number] [address] [place] [id number] Mar, [facility] [address] [id number] [address] [place] [id number] Feb, [facility] [address] [id number] [address] [place] [id number] Feb, [facility] [address] [id number] [address] [place] [id number] Feb, [facility] [address] [id number] [address] [place] [id number] January, [facility] [address] [id number] [address] [place] [id number] January, [facility] [address] [id number] [address] [place] [id number] Dec, [facility] [address] [id number] [address] [place] [id number] Nov, [facility] [address] [id number] [address] [place] [id number] Nov, IMMUNIZATIONS No Known Immunizations SOCIAL HISTORY Never Assessed REASON FOR VISIT PLAN OF CARE VITAL SIGNS MEDICATIONS Unknown Medications RESULTS No Results PROCEDURES Procedure Date Ordered Result Body Site PSYTX PT&/FAMILY 45 MINUTES May 04, 2013 INSTRUCTIONS MEDICATIONS ADMINISTERED No Known Medications [...]
--- OUTSIDE RECORDS SUMMARY | 2020-03-26 15:21 | XMS REPORT ---
Author Author Shireen YOUNGER Organization [facility] Address [address] [place] [address] Care Team Providers Care Insurance Attorney Name Role Phone PEMA YOUNGER Unavailable PROBLEMS Type Condition ICD9-CM Code ITE10-KB Code Onset Dates Condition S tatus SNOMED Code Problem Personality disorder, unspecified F60.9 Active 77972904 Problem Rheumatoid arthritis involvi ng multiple sites, unspecified rheumatoid factor presence M06.9 Active 85929950 Problem Rheumatoid arthritis with po sitive rheumatoid factor, involving unspecified site M05.9 Active 911064572 Problem Post-traumatic stress disorder, chronic F43.12 Active 64212418 Problem Bipolar disorder, current episode depressed, moderate F31.32 Active 898810170 Problem Anorexia nervosa F50.00 Active 568 41338 Problem 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 [id number] ALLERGIES No Information ENCOUNTERS Encounter Location Date Diagnosis [address] [id number] [address] Mar, [facility] [address] [id number] [place] [address] Feb, Excessive cerumen in both ea r canals H61.[address] [id number] [address] Feb, [address] [id number] [address] Feb, [address] [id number] [address] Feb, [address] [id number] [address] January, Rheumatoid arthritis with po sitive rheumatoid factor, involving unspecified site M05.9 [facility] [address] 340B [id number] [place] [address] January, [address] [id number] [place] [address] January, [address] [id number] [place] [address] January, [address] [id number] [place] [address] January, Bipolar disorder, current ep isode depressed, moderate F31.[address] [id number] [place] [address] January, Bipolar disorder, current ep isode depressed, moderate F31.[address] [id number] [place] [address] January, [address] [id number] [place] [address] January, [address] [id number] [place] [address] January, [address] [id number] [place] [address] January, [facility] [address] [id number] [place] [address] January, Bipolar disorder, current ep isode depressed, moderate F31.32 ; Post-traumatic stress disorder, chronic F43.12 and Anorexia nervosa F50.00 [facility] [address] [place] [address] January, snf resident Z59.3 ; Rheumatoid arthritis involving multiple sites, unspecified rheumatoid factor presence M06.9 ; Post-traumatic stress disorder, chronic F43.12 and Bipolar disorder, current episode depressed, moderate F31.[address] [id number] [place] [address] January, [facility] [address] [id number] [address] [place] [address] 30 Dec, 2019 Bipolar disorder, current ep isode depressed, moderate F31.32 ; Post-traumatic stress disorder, chronic F43.12 and Anorexia nervosa F50.00 [facility] [address] [id number] [address] [place] [address] 22 Dec, 2019 Bipolar disorder, current ep isode depressed, moderate F31.32 ; Post-traumatic stress disorder, chronic F43.12 and Anorexia nervosa F50.[address] 340[address] [id number] [address] 16 Dec, 2019 Bipolar disorder, current ep isode depressed, moderate F31.32 [place] [address] [facility] [id number] [address] [place] [address] 15 Dec, 2019 [place] [address] [facility] [id number] [address] [place] [address] 15 Dec, 2019 Bipolar disorder, current ep isode depressed, moderate F31.32 ; Post-traumatic stress disorder, chronic F43.12 and Anorexia nervosa F50.00 [facility] [address] [place] [address] 15 Dec, 2019 Bipolar disorder, current episode depressed, moderate F31.32 and Rheumatoid arthritis involving multiple sites, unspecified rheumatoid factor presence M06.9 [place] [address] [facility] [id number] [address] [place] [address] 14 Dec, 2019 [place] [address] [id number] [address] [place] [address] 09 Dec, 2019 Bipolar disorder, current ep isode depressed, moderate F31.32 ; Post-traumatic stress disorder, chronic F43.12 and Anorexia nervosa F50.00 [place] [address] [facility] [id number] [address] [place] [address] 08 Dec, 2019 Bipolar disorder, current ep isode depressed, moderate F31.32 ; Post-traumatic stress disorder, chronic F43.12 and Anorexia nervosa F50.00 [place] [address] [facility] [id number] [address] [place] [address] Dec, [facility] [address] [facility] [id number] [address] [place] [address] Dec, [facility] [place] [address] [facility] [id number] [place] [address] Nov, [facility] [address] [facility] [id number] [address] [place] [address] Nov, [facility] [address] [facility] [id number] [address] [place] [address] Nov, [facility] [place] [address] [facility] [id number] [place] [address] Oct, Rheumatoid arthritis involving multiple sites, unspecified rheumatoid factor presence M06.9 [facility] [place] [address] [facility] [id number] [place] [address] Oct, jail systemic steroid user Z79.52 [facility] [place] [id number] [place] [address] Oct, Bipolar disorder, current episode depressed, moderate F31.32 ; Anorexia nervosa F50.00 ; Rheumatoid arthritis involving multiple sites, unspecified rheumatoid factor presence M06.9 and jail systemic steroid user Z79.52 [facility] [address] [facility] [id number] [address] [place] [address] Sep, [facility] [address] [facility] [id number] [address] [place] [address] Sep, Bipolar disorder, current ep isode depressed, moderate F31.32 ; Post-traumatic stress disorder, chronic F43.12 and Anorexia nervosa F50.00 [facility] [address] [facility] [id number] [address] [place] [address] Sep, [facility] [address] [facility] [id number] [address] [place] [address] Aug, [facility] [address] [facility] [id number] [address] [place] [address] Aug, [facility] [address] [facility] [id number] [address] [place] [address] Aug, [place] [address] [id number] [address] [place] [address] Aug, Bipolar disorder, current ep isode depressed, moderate F31.32 ; Post-traumatic stress disorder, chronic F43.12 ; Anorexia nervosa F50.00 and Personality disorder, unspecified F60.9 [place] [address] [id number] [address] [place] [address] Jul, Bipolar disorder, current ep isode depressed, moderate F31.32 and Anorexia nervosa F50.00 [place] [address] [place] [id number] [address] [place] [address] Jul, [place] [address] [place] [id number] [address] [place] [address] Jul, [place] [address] [place] [id number] [address] [place] [address] Jul, [place] [address] [place] [id number] [place] [address] Jun, Bipolar disorder, current ep isode depressed, moderate F31.32 ; Post-traumatic stress disorder, chronic F43.12 and Eating disorder, unspecified F50.9 [place] [address] [place] [id number] [address] [place] [address] May, [place] [address] [id number] [address] [place] [address] Apr, Bipolar disorder, current ep isode depressed, moderate F31.32 ; Post-traumatic stress disorder, chronic F43.12 and Eating disorder, unspecified F50.9 [place] [address] [id number] [address] [place] [address] Feb, Bipolar disorder, current ep isode depressed, moderate F31.32 ; Post-traumatic stress disorder, chronic F43.12 and Personality disorder, unspecified F60.9 [place] [address] [id number] [address] [place] [address] Feb, Bipolar II disorder F31.81 [facility] [address] [id number] [address] [place] [address] Dec, Bipolar disorder, current ep isode depressed, moderate F31.32 ; Post-traumatic stress disorder, chronic F43.12 and Personality disorder, unspecified F60.9 [facility] [address] [id number] [address] [place], [place] [address] Dec, Bipolar disorder, current ep isode depressed, moderate F31.32 ; Post-traumatic stress disorder, chronic F43.12 and Personality disorder, unspecified F60.9 [facility] [address] [id number] [address] [place] [address] Dec, [facility] [address] [id number] [address] [place] [address] Dec, [facility] [address] [id number] [address] [place] [address] Dec, Bipolar disorder, current ep isode depressed, moderate F31.32 ; Post-traumatic stress disorder, chronic F43.12 and Personality disorder, unspecified F60.9 [place] [id number] [id number] [address] [place] [address] Nov, [facility] [address] [id number] [address] [place] [address] Nov, Bipolar disorder, current ep isode depressed, moderate F31.32 ; Post-traumatic stress disorder, chronic F43.12 and Personality disorder, unspecified F60.9 [facility] [address] [id number] [address] [place] [address] Nov, Bipolar disorder, current ep isode depressed, moderate F31.32 ; Post-traumatic stress disorder, chronic F43.12 and Personality disorder, unspecified F60.9 [facility] [address] [id number] [address] [place] [address] Oct, [facility] [address] [id number] [address] [place] [address] Oct, Bipolar disorder, current ep isode depressed, moderate F31.32 ; Post-traumatic stress disorder, chronic F43.12 and Personality disorder, unspecified F60.9 [place] [address] [facility] [id number] [address] [place] [address] Oct, Bipolar disorder, current ep isode depressed, moderate F31.32 ; Post-traumatic stress disorder, chronic F43.12 and Personality disorder, unspecified F60.9 [place] [address] [facility] [id number] [address] [place] [address] Aug, Bipolar II disorder F31.81 a nd Post-traumatic stress disorder, unspecified F43.10 [place] [address] [id number] [address] [place] [address] Aug, Bipolar disorder, current ep isode depressed, moderate F31.32 ; Post-traumatic stress disorder, chronic F43.12 and Personality disorder, unspecified F60.9 [place] [id number] [place] [address] Jul, Bipolar disorder, unspecifie d 296.80 and Posttraumatic stress disorder 309.81 [place] [address] [id number] [address] [place] [address] Jul, Post-traumatic stress disord er, chronic F43.12 ; Personality disorder, unspecified F60.9 and Bipolar disorder, current episode depressed, moderate F31.32 [place] [address] [id number] [address] [place] [address] Jun, Bipolar disorder, unspecifie d 296.80 and Posttraumatic stress disorder 309.81 [place] [address] [place] [id number] [address] [place] [address] Jun, Bipolar disorder, unspecifie d 296.80 and Posttraumatic stress disorder 309.81 [place] [address] [place] [id number] [address] [place] [address] Jun, Posttraumatic stress disorde r 309.81 and Bipolar disorder, unspecified 296.80 [facility] [address] [id number] [address] [place] [address] May, Bipolar II disorder 296.89 a nd Post traumatic stress disorder 309.81 [facility] [address] [id number] [address] [place] [address] May, 2014 Bipolar II disorder 296.89 a nd Post traumatic stress disorder 309.81 [facility] [address] [id number] [address] [place] [address] May, 2014 [facility] [address] [id number] [address] [place] [address] May, 2014 [facility] [address] [facility] [id number] [address] [place] [address] May, 2014 [facility] [address] [facility] [id number] [address] [place] [address] May, 2014 [facility] [address] [facility] [id number] [address] [place] [address] May, Bipolar II disorder 296.89 a nd Post traumatic stress disorder 309.81 [facility] [address] [facility] [id number] [address] [place] [address] May, Bipolar I disorder, most rec ent episode (or current) depressed, moderate 296.52 ; Posttraumatic stress disorder 309.81 and Anxiety state, unspecified 300.00 [facility] [address] [facility] [id number] [address] [place] [address] Apr, Bipolar II disorder 296.89 a nd Post traumatic stress disorder 309.81 [facility] [address] [facility] [id number] [address] [place] [address] Apr, [facility] [address] [facility] [id number] [address] [place] [address] Apr, Bipolar II disorder 296.89 a nd Post traumatic stress disorder 309.81 [facility] [address] [facility] [id number] [address] [place] [address] Apr, Bipolar II disorder 296.89 a nd Post traumatic stress disorder 309.81 [facility] [address] [id number] [address] [place] [address] Mar, Bipolar II disorder 296.89 a nd Post traumatic stress disorder 309.81 [facility] [address] [id number] [address] [place] [address] Mar, [facility] [address] [id number] [address] [place] [address] Mar, Bipolar II disorder 296.89 a nd Post traumatic stress disorder 309.81 [facility] [address] [id number] [address] [place] [address] Mar, Bipolar II disorder 296.89 a nd Post traumatic stress disorder 309.81 [facility] [address] [id number] [address] [place] [address] Mar, Bipolar II disorder 296.89 a nd Post traumatic stress disorder 309.81 [facility] [address] [id number] [address] [place] [address] Mar, [facility] [address] [id number] [address] [place] [address] Mar, Bipolar II disorder 296.89 a nd Post traumatic stress disorder 309.81 [facility] [address] [id number] [address] [place] [address] Feb, Bipolar II disorder 296.89 a nd Post traumatic stress disorder 309.81 [facility] [address] [id number] [address] [place] [address] Feb, [facility] [address] [id number] [address] [place] [address] Feb, Bipolar disorder, unspecifie d 296.80 and Anxiety state, unspecified 300.00 [facility] [address] [id number] [address] [place] [address] Feb, [facility] [address] [id number] [address] [place] [address] Feb, [facility] [address] [id number] [address] [place] [address], [place] [address] January, [facility] [address] [id number] [address] [place] [address], [place] [address] Dec, [facility] [address] [id number] [address] [place] [address], [place] [address] Dec, [facility] [address] [id number] [address] [place] [address], [place] [address] Nov, [facility] [address] [id number] [address] [place] [address], [place] [address] Nov, [facility] [address] [id number] [address] [place] [address], [place] [address] Nov, [facility] [address] [id number] [address] [place] [address], [place] [address] Nov, [facility] [address] [id number] [address] [place] [address], [place] [address] Nov, [facility] [address] [id number] [address] [place] [address], [place] [address] Nov, [facility] [address] [id number] [address] [place] [address], [place] [address] Nov, [facility] [address] [id number] [address] [place] [address], [place] [address] Nov, [facility] [address] [id number] [address] [place] [address], [place] [address] Nov, [facility] [address] [id number] [address] [place] [address], [place] [address] Oct, [facility] [address] [id number] [address] [place] [address], [place] [address] Oct, [facility] [address] [id number] [address] [place] [address], [place] [address] Oct, [facility] [address] [id number] [address] [place] [address], [place] [address] Oct, [facility] [address] [id number] [address] [place] [address], [place] [address] Oct, [facility] [address] [id number] [address] [place] [address], [place] [address] Oct, [facility] [address] [id number] [address] [place] [address], [place] [address] Oct, [facility] [address] [id number] [address] [place] [address], [place] [address] Oct, [facility] [address] [id number] [address] [place] [address], [place] [address] Sep, [facility] [address] [id number] [address] [place] [address], [place] [address] Sep, [facility] [address] [id number] [address] [place] [address], [place] [address] Sep, [facility] [address] [id number] [address] [place] [address], [place] [address] Sep, [facility] [address] [id number] [address] [place] [address] Sep, [facility] [address] [id number] [address] [place] [address] Sep, [facility] [address] [id number] [address] [place] [address] Sep, [facility] [address] [id number] [address] [place] [address], [place] [address] Sep, [facility] [address] [id number] [address] [place] [address], [place] [address] Sep, [facility] [address] [id number] [address] [place] [address] Sep, [facility] [address] [id number] [address] [place] [address] Aug, [facility] [address] [id number] [address] [place] [address], [place] [address] Aug, [facility] [address] [id number] [address] [place] [address], [place] [address] Aug, [facility] [address] [id number] [address] [place] [address], [place] [address] Aug, [facility] [address] [id number] [address] [place] [address], [place] [address] Aug, [facility] [address] [id number] [address] [place] [address], [place] [address] Aug, [facility] [address] [id number] [address] [place] [address], [place] [address] Aug, [facility] [address] [id number] [address] [place] [address], [place] [address] Aug, [facility] [address] [id number] [address] [place] [address], [place] [address] Jul, [facility] [address] [id number] [address] [place] [address], [place] [address] Jul, [facility] [address] [id number] [address] [place] [address], [place] [address] Jul, [facility] [address] [id number] [address] [place] [address], [place] [address] Jul, [facility] [address] [id number] [address] [place] [address], [place] [address] Jul, [facility] [address] [id number] [address] [place] [address], [place] [address] Jul, [facility] [address] [id number] [address] [place] [address], [place] [address] Jul, [facility] [address] [id number] [address] [place] [address], [place] [address] Jul, [facility] [address] [id number] [address] [place] [address], [place] [address] Jul, [facility] [address] [id number] [address] [place] [address], [place] [address] Jun, [facility] [address] [id number] [address] [place] [address], [place] [address] Jun, [facility] [address] [id number] [address] [place] [address], [place] [address] Jun, [facility] [address] [id number] [address] [place] [address], [place] [address] Jun, [facility] [address] [id number] [address] [place] [address], [place] [address] Jun, [facility] [address] [id number] [address] [place] [address], [place] [address] Jun, [facility] [address] [id number] [address] [place] [address], [place] [address] May, [facility] [address] [id number] [address] [place] [address], [place] [address] May, [facility] [address] [id number] [address] [place] [address], [place] [address] 16 May, 2014 [facility] [address] [id number] [address] [place] [address], [place] [address] 16 May, 2014 [facility] [address] [id number] [address] [place] [address], [place] [address] May, [facility] [address] [id number] [address] [place] [address], [place] [address] May, [facility] [address] [id number] [address] [place] [address], [place] [address] Apr, [facility] [address] [id number] [address] [place] [address], [place] [address] Apr, [facility] [address] [id number] [address] [place] [address], [place] [address] Apr, [facility] [address] [id number] [facility] [place] [address] Apr, [facility] [address] [id number] [facility] [place] [address] Apr, [facility] [address] [id number] [facility] [place] [address] Apr, [facility] [address] [id number] [address] [place] [address], [place] [address] Mar, [facility] [address] [id number] [address] [place] [address] Mar, [facility] [address] [id number] [address] [place] [address], [place] [address] Mar, [facility] [address] [id number] [address] [place] [address], [place] [address] Mar, [facility] [address] [id number] [address] [place] [address] [address] Mar, [facility] [address] [id number] [address] [place] [address], [place] [address] Mar, [facility] [address] [id number] [address] [place] [address], [place] [address] Mar, [facility] [address] [id number] [address] [place] [address], [place] [address] Mar, [facility] [address] [id number] [address] [place] [address], [place] [address] Mar, [facility] [address] [id number] [address] [place] [address], [place] [address] Mar, [facility] [address] [id number] [address] [place] [address], [place] [address] Mar, [facility] [address] [id number] [address] [place] [address], [place] [address] Mar, [facility] [address] [id number] [facility] [place] [address] Mar, [facility] [address] [id number] [address] [place] [address], [place] [address] Mar, [facility] [address] [id number] [address] [place] [address], [place] [address] Mar, [facility] [address] [id number] [address] [place] [address], [place] [address] Mar, [facility] [address] [id number] [address] [place] [address], [place] [address] Feb, [facility] [address] [id number] [address] [place] [address], [place] [address] Feb, [facility] [address] [id number] [address] [place] [address], [place] [address] Feb, [facility] [address] [id number] [address] [place] [address], [place] [address] Feb, [facility] [address] [id number] [address] [place] [address], [place] [address] Feb, [facility] [address] [id number] [address] [place] [address], [place] [address] Feb, [facility] [address] [id number] [address] [place] [address], [place] [address] Feb, [facility] [address] [id number] [address] [place] [address], [place] [address] Feb, [facility] [address] [id number] [address] [place] [address], [place] [address] Feb, [facility] [address] [id number] [address] [place] [address], [place] [address] Feb, [facility] [address] [id number] [address] [place] [address], [place] [address] Feb, [facility] [address] [id number] [address] [place] [address], [place] [address] 05 Feb, 2014 [facility] [address] [id number] [address] [place] [address], [place] [address] Feb, [facility] [address] [id number] [address] [place] [address], [place] [address] January, [facility] [address] [id number] [address] [place] [address], [place] [address] January, [facility] [address] [id number] [address] [place] [address], [place] [address] January, [facility] [address] [id number] [address] [place] [address], [place] [address] January, [facility] [address] [id number] [address] [place] [address], [place] [address] January, [facility] [address] [id number] [address] [place] [address], [place] [address] January, [facility] [address] [id number] [address] [place] [address], [place] [address] January, [facility] [address] [id number] [address] [place] [address], [place] [address] January, [facility] [address] [id number] [address] [place] [address], [place] [address] January, [facility] [address] [id number] [address] [place] [address], [place] [address] January, [facility] [address] [id number] [address] [place] [address], [place] [address] January, [facility] [address] [id number] [address] [place] [address], [place] [address] January, [facility] [address] [id number] [address] [place] [address], [place] [address] January, [facility] [address] [id number] [address] [place] [address], [place] [address] January, [facility] [address] [id number] [address] [place] [address], [place] [address] Dec, [facility] [address] [id number] [address] [place] [address], [place] [address] Dec, [facility] [address] [id number] [address] [place] [address], [place] [address] Dec, [facility] [address] [id number] [address] [place] [address], [place] [address] Dec, [facility] [address] [id number] [address] [place] [address], [place] [address] Dec, [facility] [address] [id number] [address] [place] [address], [place] [address] Dec, [facility] [address] [id number] [address] [place] [address], [place] [address] Dec, [facility] [address] [id number] [address] [place] [address], [place] [address] Dec, [facility] [address] [id number] [address] [place] [address], [place] [address] Nov, [facility] [address] [id number] [address] [place] [address], [place] [address] Nov, [facility] [address] [id number] [address] [place] [address], [place] [address] Nov, [facility] [address] [id number] [address] [place] [address], [place] [address] Nov, [facility] [address] [id number] [address] [place] [address], [place] [address] Oct, [facility] [address] [id number] [address] [place] [address], [place] [address] Oct, [facility] [address] [id number] [address] [place] [address], [place] [address] Oct, [facility] [address] [id number] [address] [place] [address], [place] [address] Oct, [facility] [address] [id number] [address] [place] [address], [place] [address] Oct, [facility] [address] [id number] [address] [place] [address], [place] [address] Oct, [facility] [address] [id number] [address] [place] [address], [place] [address] Sep, [facility] [address] [id number] [address] [place] [address], [place] [address] Sep, [facility] [address] [id number] [address] [place] [address], [place] [address] Sep, [facility] [address] [id number] [address] [place] [address], [place] [address] Sep, [facility] [address] [id number] [address] [place] [address], [place] [address] Sep, [facility] [address] [id number] [address] [place] [address], [place] [address] Sep, [facility] [address] [id number] [address] [place] [address], [place] [address] Sep, [facility] [address] [id number] [address] [place] [address], [place] [address] Sep, [facility] [address] [id number] [address] [place] [address], [place] [address] Sep, [facility] [address] [id number] [address] [place] [address], [place] [address] Sep, [facility] [address] [id number] [address] [place] [address], [place] [address] Aug, [facility] [address] [id number] [address] [place] [address], [place] [address] Aug, [facility] [address] [id number] [address] [place] [address], [place] [address] Aug, [facility] [address] [id number] [address] [place] [address], [place] [address] Aug, [facility] [address] [id number] [address] [place] [address], [place] [address] Aug, [facility] [address] [id number] [address] [place] [address], [place] [address] Aug, [facility] [address] [id number] [address] [place] [address], [place] [address] Aug, [facility] [address] [id number] [address] [place] [address], [place] [address] Aug, [facility] [address] [id number] [address] [place] [address], [place] [address] Jul, [facility] [address] [id number] [address] [place] [address] Jul, [facility] [address] [id number] [address] [place] [address], [place] [address] Jul, [facility] [address] [id number] [address] [place] [address] Jul, [facility] [address] [id number] [address] [place] [address] Jul, [facility] [address] [id number] [address] [place] [address] Jul, [facility] [address] [id number] [address] [place] [address] Jul, [facility] [address] [id number] [address] [place] [address] Jul, [facility] [address] [id number] [address] [place] [address] Jul, [facility] [address] [id number] [address] [place] [address] Jul, [facility] [address] [id number] [address] [place] [address] Jul, [facility] [address] [id number] [address] [place] [address], [place] [address] 06 Jul, 2013 [facility] [address] [id number] [address] [place] [address], [place] [address] 30 Jun, 2013 [facility] [address] [id number] [address] [place] [address], [place] [address] 30 Jun, 2013 [facility] [address] [id number] [address] [place] [address], [place] [address] 29 Jun, 2013 [facility] [address] [id number] [address] [place] [address], [place] [address] Jun, [facility] [address] [id number] [address] [place] [address], [place] [address] Jun, [facility] [address] [id number] [address] [place] [address], [place] [address] Jun, [facility] [address] [id number] [address] [place] [address], [place] [address] Jun, [facility] [address] [id number] [address] [place] [address], [place] [address] Jun, [facility] [address] [id number] [address] [place] [address], [place] [address] 25 May, 2013 [facility] [address] [id number] [address] [place] [address], [place] [address] 18 May, 2013 [facility] [address] [id number] [address] [place] [address], [place] [address] 11 May, 2012 [facility] [address] [id number] [address] [place] [address], [place] [address] 10 May, 2012 [facility] [address] [id number] [address] [place] [address], [place] [address] 09 May, 2013 [facility] [address] [id number] [address] [place] [address], [place] [address] 04 May, 2012 [facility] [address] [id number] [address] [place] [address], [place] [address] Apr, [facility] [address] [id number] [address] [place] [address] Apr, [facility] [address] [id number] [address] [place] [address] Apr, [facility] [address] [id number] [address] [place] [address] Apr, [facility] [address] [id number] [address] [place] [address] Apr, [facility] [address] [id number] [address] [place] [address] Mar, [facility] [address] [id number] [address] [place] [address] Mar, [facility] [address] [id number] [address] [place] [address] Mar, [facility] [address] [id number] [address] [place] [address] Feb, [facility] [address] [id number] [address] [place] [address] Feb, [facility] [address] [id number] [address] [place] [address] Feb, [facility] [address] [id number] [address] [place] [address] January, [facility] [address] [id number] [address] [place] [address] January, [facility] [address] [id number] [address] [place] [address] Dec, [facility] [address] [id number] [address] [place] [address] Nov, [facility] [address] [id number] [address] [place] [address] Nov, IMMUNIZATIONS No Known Immunizations SOCIAL HISTORY Never Assessed REASON FOR VISIT PLAN OF CARE VITAL SIGNS MEDICATIONS Unknown Medications RESULTS No Results PROCEDURES Procedure Date Ordered Result Body Site PSYTX PT&/FAMILY 45 MINUTES Jun 07, 2013 INSTRUCTIONS MEDICATIONS ADMINISTERED No Known [...]
--- OUTSIDE RECORDS SUMMARY | 2020-03-26 15:22 | XMS REPORT ---
Author Author Shireen YOUNGER [facility] Address [address] [place] [address] Care Team Providers Care Learning Disabilities Specialist Name Role Phone PEMA YOUNGER Unavailable PROBLEMS Type Condition ICD9-CM Code [id number] Code Onset Dates Condition S tatus SNOMED Code Problem [facility] systemic steroid user Z79.52 Active [id number] Problem Rheumatoid arthritis involvi ng multiple sites, unspecified rheumatoid factor presence M06.9 Active 95044056 Problem Personality disorder, unspecified F60.9 Active 22984549 Problem Post-traumatic stress disorder, chronic F43.12 Active 17603629 Problem Bipolar disorder, current episode depressed, moderate F31.32 Active 287991380 Problem Anorexia nervosa F50.00 Active 568 20022 ALLERGIES No Information ENCOUNTERS Encounter Location Date Diagnosis [address] [id number] [address] January, [facility] [address] [facility] [id number] [place] [address] January, [address] [id number], [place] [address] January, [address] 340[address] [id number], [place] [address] January, [address] 340[address] [id number], [place] [address] January, [address] 340[address] [id number], [place] [address] January, Bipolar disorder, current ep isode depressed, moderate F31.[address] [id number], [place] [address] January, Bipolar disorder, current ep isode depressed, moderate F31.[address] 340[address] [id number] [place] [address] January, [address] 340[address] [id number] [place] [address] January, [address] 340B [id number] [place] [address] January, [address] 340[address] [id number] [place] [address] January, [facility] [address] [facility] [id number] [address] [place] [address] January, Bipolar disorder, current ep isode depressed, moderate F31.32 ; Post-traumatic stress disorder, chronic F43.12 and Anorexia nervosa F50.00 [facility] [address] [place] [address] January, senior living resident Z59.3 ; Rheumatoid arthritis involving multiple sites, unspecified rheumatoid factor presence M06.9 ; Post-traumatic stress disorder, chronic F43.12 and Bipolar disorder, current episode depressed, moderate F31.[address] 340[address] [id number] [place] [address] January, [facility] [address] [facility] [id number] [address] [place] [address] Dec, Bipolar disorder, current ep isode depressed, moderate F31.32 ; Post-traumatic stress disorder, chronic F43.12 and Anorexia nervosa F50.00 [facility] [address] [id number] [address] [place] [address] Dec, Bipolar disorder, current ep isode depressed, moderate F31.32 ; Post-traumatic stress disorder, chronic F43.12 and Anorexia nervosa F50.[address] 340B [id number] [place] [address] Dec, Bipolar disorder, current ep isode depressed, moderate F31.32 [facility] [address] [id number] [address] [place] [address] 15 Dec, 2019 [facility] [address] [id number] [address] [place] [address] 15 Dec, 2019 Bipolar disorder, current ep isode depressed, moderate F31.32 ; Post-traumatic stress disorder, chronic F43.12 and Anorexia nervosa F50.00 [facility] [address] [place] [address] 15 Dec, 2019 Bipolar disorder, current episode depressed, moderate F31.32 and Rheumatoid arthritis involving multiple sites, unspecified rheumatoid factor presence M06.9 [facility] [address] [id number] [address] [place] [address] 14 Dec, 2019 [facility] [address] [id number] [address] [place] [address] 09 Dec, 2019 Bipolar disorder, current ep isode depressed, moderate F31.32 ; Post-traumatic stress disorder, chronic F43.12 and Anorexia nervosa F50.00 [facility] [address] [facility] [id number] [address] [place] [address] 08 Dec, 2019 Bipolar disorder, current ep isode depressed, moderate F31.32 ; Post-traumatic stress disorder, chronic F43.12 and Anorexia nervosa F50.00 [facility] [address] [id number] [address] [place] [address] 07 Dec, 2019 [facility] [address] [id number] [address] [place] [address] 04 Dec, 2019 [facility] [place] [address] [facility] [id number] [place] [address] Nov, [facility] [address] [id number] [address] [place] [address] Nov, [facility] [address] [id number] [address] [place] [address] Nov, [facility] [place] [address] [facility] [id number] [place] [address] Oct, Rheumatoid arthritis involving multiple sites, unspecified rheumatoid factor presence M06.9 [facility] [place] [address] [facility] [id number] [place] [address] Oct, 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 [facility] [place] [address] [facility] [id number] [place] [address] Oct, Bipolar disorder, current episode depressed, moderate F31.32 ; Anorexia nervosa F50.00 ; Rheumatoid arthritis involving multiple sites, unspecified rheumatoid factor presence M06.9 and [facility] systemic steroid user Z79.52 [facility] [address] [facility] [id number] [address] [place] [address] Sep, [facility] [address] [facility] [id number] [address] [place] [address] Sep, Bipolar disorder, current ep isode depressed, moderate F31.32 ; Post-traumatic stress disorder, chronic F43.12 and Anorexia nervosa F50.00 [facility] [address] [facility] [id number] [address] [place] [address] Sep, [facility] [address] [facility] [id number] [address] [place] [address] Aug, [facility] [address] [facility] [id number] [address] [place] [address] Aug, [facility] [address] [facility] [id number] [address] [place] [address] Aug, [facility] [address] [facility] [id number] [address] [place] [address] Aug, Bipolar disorder, current ep isode depressed, moderate F31.32 ; Post-traumatic stress disorder, chronic F43.12 ; Anorexia nervosa F50.00 and Personality disorder, unspecified F60.9 [facility] [address] [facility] [id number] [address] [place] [address] Jul, Bipolar disorder, current ep isode depressed, moderate F31.32 and Anorexia nervosa F50.00 [facility] [address] [facility] [id number] [address] [place] [address] Jul, [facility] [address] [facility] [id number] [address] [place] [address] Jul, [facility] [address] [facility] [id number] [address] [place] [address] Jul, [facility] [address] [facility] [id number] [address] [place] [address] Jun, Bipolar disorder, current ep isode depressed, moderate F31.32 ; Post-traumatic stress disorder, chronic F43.12 and Eating disorder, unspecified F50.9 [place] [address] [facility] [id number] [address] [place] [address] May, [place] [address] [facility] [id number] [address] [place] [address] Apr, Bipolar disorder, current ep isode depressed, moderate F31.32 ; Post-traumatic stress disorder, chronic F43.12 and Eating disorder, unspecified F50.9 [place] [address] [place] [id number] [address] [place] [address] Feb, Bipolar disorder, current ep isode depressed, moderate F31.32 ; Post-traumatic stress disorder, chronic F43.12 and Personality disorder, unspecified F60.9 [place] [address] [place] [id number] [address] [place] [address] 14 Feb, 2016 Bipolar II disorder F31.81 [place] [address] [facility] [id number] [address] [place] [address] Dec, Bipolar disorder, current ep isode depressed, moderate F31.32 ; Post-traumatic stress disorder, chronic F43.12 and Personality disorder, unspecified F60.9 [place] [address] [facility] [id number] [address] [place] [address] 14 Dec, 2015 Bipolar disorder, current ep isode depressed, moderate F31.32 ; Post-traumatic stress disorder, chronic F43.12 and Personality disorder, unspecified F60.9 [place] [address] [facility] [id number] [address] [place] [address] Dec, [facility] [address] [id number] [address] [place] [address] Dec, [facility] [address] [facility] [id number] [address] [place] [address] Dec, Bipolar disorder, current ep isode depressed, moderate F31.32 ; Post-traumatic stress disorder, chronic F43.12 and Personality disorder, unspecified F60.9 [facility] [address] [facility] [id number] [address] [place] [address] Nov, [facility] [address] [id number] [address] [place] [address] Nov, Bipolar disorder, current ep isode depressed, moderate F31.32 ; Post-traumatic stress disorder, chronic F43.12 and Personality disorder, unspecified F60.9 [place] [address] [facility] [id number] [address] [place] [address] Nov, Bipolar disorder, current ep isode depressed, moderate F31.32 ; Post-traumatic stress disorder, chronic F43.12 and Personality disorder, unspecified F60.9 [place] [address] [facility] [id number] [address] [place] [address] Oct, [facility] [address] [id number] [address] [place] [address] Oct, Bipolar disorder, current ep isode depressed, moderate F31.32 ; Post-traumatic stress disorder, chronic F43.12 and Personality disorder, unspecified F60.9 [place] [address] [id number] [address] [place] [address] Oct, Bipolar disorder, current ep isode depressed, moderate F31.32 ; Post-traumatic stress disorder, chronic F43.12 and Personality disorder, unspecified F60.9 [place] [address] [facility] [id number] [address] [place] [address] Aug, Bipolar II disorder F31.81 a nd Post-traumatic stress disorder, unspecified F43.10 [place] [address] [facility] [id number] [address] [place] [address] Aug, Bipolar disorder, current ep isode depressed, moderate F31.32 ; Post-traumatic stress disorder, chronic F43.12 and Personality disorder, unspecified F60.9 [place] [address] [facility] [id number] [address] [place] [address] Jul, Bipolar disorder, unspecifie d 296.80 and Posttraumatic stress disorder 309.81 [place] [address] [place] [id number] [address] [place] [address] Jul, Post-traumatic stress disord er, chronic F43.12 ; Personality disorder, unspecified F60.9 and Bipolar disorder, current episode depressed, moderate F31.32 [place] [address] [place] [id number] [address] [place] [address] Jun, Bipolar disorder, unspecifie d 296.80 and Posttraumatic stress disorder 309.81 [place] [address] [place] [id number] [address] [place] [address] Jun, Bipolar disorder, unspecifie d 296.80 and Posttraumatic stress disorder 309.81 [place] [address] [place] [id number] [address] [place] [address] Jun, Posttraumatic stress disorde r 309.81 and Bipolar disorder, unspecified 296.80 [place] [address] [facility] [id number] [address] [place] [address] May, Bipolar II disorder 296.89 a nd Post traumatic stress disorder 309.81 [place] [address] [facility] [id number] [address] [place] [address] May, Bipolar II disorder 296.89 a nd Post traumatic stress disorder 309.81 [place] [address] [place] [id number] [address] [place] [address] 17 May, 2015 [place] [address] [place] [id number] [address] [place] [address] May, [place] [address] [place] [id number] [address] [place] [address] May, [facility] [address] [id number] [address] [place] [address] May, [facility] [address] [facility] [id number] [address] [place] [address] May, Bipolar II disorder 296.89 a nd Post traumatic stress disorder 309.81 [facility] [address] [facility] [id number] [address] [place] [address] May, Bipolar I disorder, most rec ent episode (or current) depressed, moderate 296.52 ; Posttraumatic stress disorder 309.81 and Anxiety state, unspecified 300.00 [facility] [address] [facility] [id number] [address] [place] [address] Apr, Bipolar II disorder 296.89 a nd Post traumatic stress disorder 309.81 [facility] [address] [facility] [id number] [address] [place] [address] Apr, [facility] [address] [facility] [id number] [address] [place] [address] Apr, Bipolar II disorder 296.89 a nd Post traumatic stress disorder 309.81 [facility] [address] [facility] [id number] [address] [place] [address] Apr, Bipolar II disorder 296.89 a nd Post traumatic stress disorder 309.81 [facility] [address] [facility] [id number] [address] [place] [address] Mar, Bipolar II disorder 296.89 a nd Post traumatic stress disorder 309.81 [facility] [address] [facility] [id number] [address] [place] [address] Mar, [facility] [address] [facility] [id number] [address] [place] [address] Mar, Bipolar II disorder 296.89 a nd Post traumatic stress disorder 309.81 [facility] [address] [facility] [id number] [address] [place] [address] Mar, Bipolar II disorder 296.89 a nd Post traumatic stress disorder 309.81 [facility] [address] [id number] [address] [place] [address] Mar, Bipolar II disorder 296.89 a nd Post traumatic stress disorder 309.81 [facility] [address] [id number] [address] [place] [address] Mar, [facility] [address] [id number] [address] [place] [address] Mar, Bipolar II disorder 296.89 a nd Post traumatic stress disorder 309.81 [facility] [address] [id number] [address] [place] [address] Feb, Bipolar II disorder 296.89 a nd Post traumatic stress disorder 309.81 [facility] [address] [id number] [address] [place] [address] Feb, [facility] [address] [id number] [address] [place] [address] Feb, Bipolar disorder, unspecifie d 296.80 and Anxiety state, unspecified 300.00 [facility] [address] [id number] [address] [place] [address] Feb, [facility] [address] [id number] [address] [place] [address] Feb, [facility] [address] [id number] [address] [place] [address] January, [facility] [address] [id number] [address] [place] [address] Dec, [facility] [address] [id number] [address] [place] [address] Dec, [facility] [address] [id number] [address] [place] [address] Nov, [facility] [address] [id number] [address] [place] [address] Nov, [facility] [address] [id number] [address] [place] [address], [place] [address] Nov, [facility] [address] [id number] [address] [place] [address], [place] [address] Nov, [facility] [address] [id number] [address] [place] [address], [place] [address] Nov, [facility] [address] [id number] [address] [place] [address], [place] [address] Nov, [facility] [address] [id number] [address] [place] [address], [place] [address] Nov, [facility] [address] [id number] [address] [place] [address], [place] [address] Nov, [facility] [address] [id number] [address] [place] [address], [place] [address] Nov, [facility] [address] [id number] [address] [place] [address], [place] [address] Oct, [facility] [address] [id number] [address] [place] [address], [place] [address] Oct, 2014 [facility] [address] [id number] [address] [place] [address], [place] [address] Oct, [facility] [address] [id number] [address] [place] [address], [place] [address] Oct, 2014 [facility] [address] [id number] [address] [place] [address] Oct, 2014 [facility] [address] [id number] [address] [place] [address], [place] [address] Oct, 2014 [facility] [address] [id number] [address] [place] [address], [place] [address] Oct, 2014 [facility] [address] [id number] [address] [place] [address] Oct, 2014 [facility] [address] [id number] [address] [place] [address] Sep, [facility] [address] [id number] [address] [place] [address], [place] [address] Sep, [facility] [address] [id number] [address] [place] [address], [place] [address] Sep, [facility] [address] [id number] [address] [place] [address], [place] [address] Sep, [facility] [address] [id number] [address] [place] [address], [place] [address] Sep, [facility] [address] [id number] [address] [place] [address], [place] [address] Sep, [facility] [address] [id number] [address] [place] [address], [place] [address] Sep, [facility] [address] [id number] [address] [place] [address], [place] [address] Sep, [facility] [address] [id number] [address] [place] [address], [place] [address] Sep, [facility] [address] [id number] [address] [place] [address], [place] [address] Sep, [facility] [address] [id number] [address] [place] [address], [place] [address] Aug, [facility] [address] [id number] [address] [place] [address], [place] [address] Aug, [facility] [address] [id number] [address] [place] [address], [place] [address] Aug, [facility] [address] [id number] [address] [place] [address], [place] [address] Aug, [facility] [address] [id number] [address] [place] [address], [place] [address] Aug, [facility] [address] [id number] [address] [place] [address], [place] [address] Aug, [facility] [address] [id number] [address] [place] [address], [place] [address] Aug, [facility] [address] [id number] [address] [place] [address], [place] [address] Aug, [facility] [address] [id number] [address] [place] [address], [place] [address] Jul, [facility] [address] [id number] [address] [place] [address], [place] [address] Jul, [facility] [address] [id number] [address] [place] [address], [place] [address] Jul, [facility] [address] [id number] [address] [place] [address], [place] [address] Jul, [facility] [address] [id number] [address] [place] [address], [place] [address] Jul, [facility] [address] [id number] [address] [place] [address], [place] [address] Jul, [facility] [address] [id number] [address] [place] [address], [place] [address] Jul, [facility] [address] [id number] [address] [place] [address], [place] [address] Jul, [facility] [address] [id number] [address] [place] [address], [place] [address] Jul, [facility] [address] [id number] [address] [place] [address], [place] [address] Jun, [facility] [address] [id number] [address] [place] [address], [place] [address] Jun, [facility] [address] [id number] [address] [place] [address], [place] [address] Jun, [facility] [address] [id number] [address] [place] [address], [place] [address] Jun, [facility] [address] [id number] [address] [place] [address], [place] [address] Jun, [facility] [address] [id number] [address] [place] [address], [place] [address] Jun, [facility] [address] [id number] [address] [place] [address], [place] [address] May, [facility] [address] [id number] [address] [place] [address], [place] [address] May, [facility] [address] [id number] [address] [place] [address], [place] [address] May, [facility] [address] [id number] [address] [place] [address], [place] [address] May, [facility] [address] [id number] [address] [place] [address], [place] [address] May, [facility] [address] [id number] [address] [place] [address], [place] [address] May, [facility] [address] [id number] [address] [place] [address], [place] [address] Apr, [facility] [address] [id number] [address] [place] [address], [place] [address] Apr, [facility] [address] [id number] [address] [place] [address], [place] [address] Apr, [facility] [address] [id number] [address] [place] [address], [place] [address] Apr, [facility] [address] [id number] [address] [place] [address], [place] [address] Apr, [facility] [address] [id number] [address] [place] [address], [place] [address] Apr, [facility] [address] [id number] [address] [place] [address], [place] [address] Mar, [facility] [address] [id number] [address] [place] [address], [place] [address] Mar, [facility] [address] [id number] [address] [place] [address], [place] [address] Mar, 2013 [facility] [address] [id number] [facility] [place] [address] Mar, 2013 [facility] [address] [id number] [address] [place] [address], [place] [address] Mar, 2013 [facility] [address] [id number] [address] [place] [address], [place] [address] Mar, 2013 [facility] [address] [id number] [address] [place] [address], [place] [address] Mar, 2013 [facility] [address] [id number] [address] [place] [address], [place] [address] Mar, 2013 [facility] [address] [id number] [address] [place] [address], [place] [address] Mar, 2013 [facility] [address] [id number] [address] [place] [address], [place] [address] Mar, 2013 [facility] [address] [id number] [address] [place] [address], [place] [address] Mar, [facility] [address] [id number] [address] [place] [address], [place] [address] Mar, 2013 [facility] [address] [id number] [address] [place] [address], [place] [address] Mar, [facility] [address] [id number] [address] [place] [address], [place] [address] Mar, [facility] [address] [id number] [address] [place] [address], [place] [address] Mar, [facility] [address] [id number] [address] [place] [address], [place] [address] Mar, [facility] [address] [id number] [address] [place] [address], [place] [address] Feb, [facility] [address] [id number] [address] [place] [address], [place] [address] Feb, [facility] [address] [id number] [facility] [place] [address] Feb, [facility] [address] [id number] [facility] [place] [address] Feb, [facility] [address] [id number] [facility] [place] [address] Feb, [facility] [address] [id number] [address] [place] [address], [place] [address] Feb, [facility] [address] [id number] [facility] [place] [address] Feb, [facility] [address] [id number] [address] [place] [address], [place] [address] Feb, [facility] [address] [id number] [address] [place] [address], [place] [address] Feb, [facility] [address] [id number] [address] [place] [address], [place] [address] Feb, [facility] [address] [id number] [address] [place] [address], [place] [address] Feb, [facility] [address] [id number] [address] [place] [address], [place] [address] Feb, [facility] [address] [id number] [address] [place] [address], [place] [address] Feb, [facility] [address] [id number] [address] [place] [address], [place] [address] January, [facility] [address] [id number] [address] [place] [address], [place] [address] January, [facility] [address] [id number] [address] [place] [address], [place] [address] January, [facility] [address] [id number] [address] [place] [address], [place] [address] January, [facility] [address] [id number] [address] [place] [address], [place] [address] January, [facility] [address] [id number] [facility] [place] [address] January, [facility] [address] [id number] [address] [place] [address], [place] [address] January, [facility] [address] [id number] [address] [place] [address], [place] [address] January, [facility] [address] [id number] [address] [place] [address], [place] [address] January, [facility] [address] [id number] [address] [place] [address], [place] [address] January, [facility] [address] [id number] [address] [place] [address], [place] [address] January, [facility] [address] [id number] [address] [place] [address], [place] [address] January, [facility] [address] [id number] [address] [place] [address], [place] [address] January, [facility] [address] [id number] [address] [place] [address], [place] [address] January, [facility] [address] [id number] [address] [place] [address], [place] [address] Dec, [facility] [address] [id number] [address] [place] [address], [place] [address] Dec, [facility] [address] [id number] [address] [place] [address], [place] [address] Dec, [facility] [address] [id number] [address] [place] [address], [place] [address] Dec, [facility] [address] [id number] [address] [place] [address], [place] [address] Dec, [facility] [address] [id number] [address] [place] [address], [place] [address] Dec, [facility] [address] [id number] [address] [place] [address], [place] [address] Dec, [facility] [address] [id number] [address] [place] [address], [place] [address] Dec, [facility] [address] [id number] [address] [place] [address], [place] [address] Nov, [facility] [address] [id number] [address] [place] [address], [place] [address] Nov, [facility] [address] [id number] [address] [place] [address], [place] [address] Nov, [facility] [address] [id number] [address] [place] [address], [place] [address] Nov, [facility] [address] [id number] [address] [place] [address], [place] [address] Oct, [facility] [address] [id number] [address] [place] [address], [place] [address] Oct, [facility] [address] [id number] [address] [place] [address], [place] [address] Oct, [facility] [address] [id number] [address] [place] [address], [place] [address] Oct, [facility] [address] [id number] [address] [place] [address], [place] [address] Oct, [facility] [address] [id number] [address] [place] [address], [place] [address] Oct, [facility] [address] [id number] [address] [place] [address], [place] [address] Sep, [facility] [address] [id number] [address] [place] [address], [place] [address] Sep, [facility] [address] [id number] [address] [place] [address], [place] [address] Sep, [facility] [address] [id number] [address] [place] [address], [place] [address] Sep, [facility] [address] [id number] [address] [place] [address], [place] [address] Sep, [facility] [address] [id number] [address] [place] [address], [place] [address] Sep, [facility] [address] [id number] [address] [place] [address], [place] [address] Sep, [facility] [address] [id number] [address] [place] [address], [place] [address] Sep, [facility] [address] [id number] [address] [place] [address], [place] [address] Sep, [facility] [address] [id number] [address] [place] [address], [place] [address] Sep, [facility] [address] [id number] [address] [place] [address], [place] [address] Aug, [facility] [address] [id number] [address] [place] [address], [place] [address] Aug, [facility] [address] [id number] [address] [place] [address], [place] [address] Aug, [facility] [address] [id number] [address]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
--- OUTSIDE RECORDS SUMMARY | 2020-03-26 15:22 | XMS REPORT ---
Author Author Shireen Moyer Doctor Organization [facility] Address Unknown Phone Unavailable Care Team Providers Care Typewriter Ribbon Winder Name Role Phone Migration, Doctor Unavailable Unavailable PROBLEMS Type Condition ICD9-CM Code QYL38-NU Code Onset Dates Condition S tatus SNOMED Code Problem Personality disorder, unspecified F60.9 Active 53791647 Problem Rheumatoid arthritis involvi ng multiple sites, unspecified rheumatoid factor presence M06.9 Active 21471694 Problem Rheumatoid arthritis with po sitive rheumatoid factor, involving unspecified site M05.9 Active 510427967 Problem Post-traumatic stress disorder, chronic F43.12 Active 41451338 Problem Bipolar disorder, current episode depressed, moderate F31.32 Active 229029182 Problem Anorexia nervosa F50.00 Active 568 99549 Problem 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 Active [id number] ALLERGIES No Information ENCOUNTERS Encounter Location Date Diagnosis [address] [id number] [address] Mar, [facility] [address] [facility] [id number] [address] [place] [address] Feb, [address] [id number], [place] [address] January, Rheumatoid arthritis with po sitive rheumatoid factor, involving unspecified site M05.[address] [id number], [place] [address] January, [address] [id number], [place] [address] January, [address] [id number], [place] [address] January, [address] [id number], [place] [address] January, Bipolar disorder, current ep isode depressed, moderate F31.[address] [id number] [place] [address] January, Bipolar disorder, current ep isode depressed, moderate F31.[address] [id number] [place] [address] January, [address] [id number] [place] [address] January, [address] [id number] [place] [address] January, [address] [id number] [address] January, [place] [address] [place] [id number] [address] [place] [address] January, Bipolar disorder, current ep isode depressed, moderate F31.32 ; Post-traumatic stress disorder, chronic F43.12 and Anorexia nervosa F50.00 [facility] [address] [place] [address] January, snf resident Z59.3 ; Rheumatoid arthritis involving multiple sites, unspecified rheumatoid factor presence M06.9 ; Post-traumatic stress disorder, chronic F43.12 and Bipolar disorder, current episode depressed, moderate F31.32 [place] [address] [place] [address] January, [place] [address] [facility] [id number] [address] [place] [address] Dec, Bipolar disorder, current ep isode depressed, moderate F31.32 ; Post-traumatic stress disorder, chronic F43.12 and Anorexia nervosa F50.00 [place] [address] [facility] [id number] [address] [place] [address] Dec, Bipolar disorder, current ep isode depressed, moderate F31.32 ; Post-traumatic stress disorder, chronic F43.12 and Anorexia nervosa F50.[address] [place], [place] [address] 16 Dec, 2019 Bipolar disorder, current ep isode depressed, moderate F31.32 [place] [address] [id number] [address] [place] [address] 15 Dec, 2019 [facility] [address] [id number] [address] [place] [address] 15 Dec, 2019 Bipolar disorder, current ep isode depressed, moderate F31.32 ; Post-traumatic stress disorder, chronic F43.12 and Anorexia nervosa F50.00 [facility] [address] [place] [address] 15 Dec, 2019 Bipolar disorder, current episode depressed, moderate F31.32 and Rheumatoid arthritis involving multiple sites, unspecified rheumatoid factor presence M06.9 [place] [address] [id number] [address] [place] [address] 14 Dec, 2019 [place] [address] [id number] [address] [place] [address] 09 Dec, 2019 Bipolar disorder, current ep isode depressed, moderate F31.32 ; Post-traumatic stress disorder, chronic F43.12 and Anorexia nervosa F50.00 [place] [address] [id number] [address] [place] [address] 08 Dec, 2019 Bipolar disorder, current ep isode depressed, moderate F31.32 ; Post-traumatic stress disorder, chronic F43.12 and Anorexia nervosa F50.00 [place] [address] [id number] [address] [place] [address] 07 Dec, 2019 [facility] [address] [id number] [address] [place] [address] 04 Dec, 2019 [facility] [address] [facility] [id number] [place] [address] 24 Nov, 2019 [facility] [address] [id number] [address] [place] [address] Nov, [facility] [address] [id number] [address] [place] [address] Nov, [facility] [address] [facility] [id number] [place] [address] Oct, Rheumatoid arthritis involving multiple sites, unspecified rheumatoid factor presence M06.9 [facility] [address] [facility] [id number] [place] [address] Oct, USP systemic steroid user Z79.52 [facility] [address] [facility] [id number] [place] [address] Oct, Bipolar disorder, current episode depressed, moderate F31.32 ; Anorexia nervosa F50.00 ; Rheumatoid arthritis involving multiple sites, unspecified rheumatoid factor presence M06.9 and USP systemic steroid user Z79.52 [facility] [address] [id number] [address] [place] [address] Sep, [facility] [address] [facility] [id number] [address] [place] [address] Sep, Bipolar disorder, current ep isode depressed, moderate F31.32 ; Post-traumatic stress disorder, chronic F43.12 and Anorexia nervosa F50.00 [facility] [address] [facility] [id number] [address] [place] [address] Sep, [facility] [address] [facility] [id number] [address] [place] [address] Aug, [facility] [address] [facility] [id number] [address] [place] [address] Aug, [facility] [address] [facility] [id number] [address] [place] [address] Aug, [facility] [address] [facility] [id number] [address] [place] [address] Aug, Bipolar disorder, current ep isode depressed, moderate F31.32 ; Post-traumatic stress disorder, chronic F43.12 ; Anorexia nervosa F50.00 and Personality disorder, unspecified F60.9 [facility] [address] [id number] [address] [place] [address] Jul, Bipolar disorder, current ep isode depressed, moderate F31.32 and Anorexia nervosa F50.00 [facility] [address] [id number] [address] [place] [address] Jul, [facility] [address] [id number] [address] [place] [address] Jul, [facility] [address] [id number] [address] [place] [address] Jul, [facility] [address] [id number] [address] [place] [address] Jun, Bipolar disorder, current ep isode depressed, moderate F31.32 ; Post-traumatic stress disorder, chronic F43.12 and Eating disorder, unspecified F50.9 [place] [address] [id number] [address] [place] [address] May, [place] [address] [id number] [address] [place] [address] Apr, Bipolar disorder, current ep isode depressed, moderate F31.32 ; Post-traumatic stress disorder, chronic F43.12 and Eating disorder, unspecified F50.9 [place] [address] [facility] [id number] [address] [place] [address] 14 Feb, 2016 Bipolar disorder, current ep isode depressed, moderate F31.32 ; Post-traumatic stress disorder, chronic F43.12 and Personality disorder, unspecified F60.9 [place] [address] [facility] [id number] [address] [place] [address] 14 Feb, 2016 Bipolar II disorder F31.81 [place] [address] [id number] [address] [place] [address] 27 Dec, 2015 Bipolar disorder, current ep isode depressed, moderate F31.32 ; Post-traumatic stress disorder, chronic F43.12 and Personality disorder, unspecified F60.9 [place] [address] [facility] [id number] [address] [place] [address] 14 Dec, 2015 Bipolar disorder, current ep isode depressed, moderate F31.32 ; Post-traumatic stress disorder, chronic F43.12 and Personality disorder, unspecified F60.9 [facility] [address] [id number] [address] [place] [address] Dec, [facility] [address] [id number] [address] [place] [address] Dec, [facility] [address] [id number] [address] [place] [address] Dec, Bipolar disorder, current ep isode depressed, moderate F31.32 ; Post-traumatic stress disorder, chronic F43.12 and Personality disorder, unspecified F60.9 [facility] [address] [id number] [address] [place] [address] Nov, [place] [address] [id number] [address] [place] [address] Nov, Bipolar disorder, current ep isode depressed, moderate F31.32 ; Post-traumatic stress disorder, chronic F43.12 and Personality disorder, unspecified F60.9 [place] [address] [id number] [address] [place] [address] Nov, Bipolar disorder, current ep isode depressed, moderate F31.32 ; Post-traumatic stress disorder, chronic F43.12 and Personality disorder, unspecified F60.9 [place] [address] [id number] [address] [place] [address] Oct, [facility] [address] [id number] [address] [place] [address] Oct, Bipolar disorder, current ep isode depressed, moderate F31.32 ; Post-traumatic stress disorder, chronic F43.12 and Personality disorder, unspecified F60.9 [place] [address] [id number] [address] [place] [address] Oct, Bipolar disorder, current ep isode depressed, moderate F31.32 ; Post-traumatic stress disorder, chronic F43.12 and Personality disorder, unspecified F60.9 [place] [address] [place] [id number] [address] [place] [address] Aug, Bipolar II disorder F31.81 a nd Post-traumatic stress disorder, unspecified F43.10 [place] [address] [place] [id number] [address] [place] [address] Aug, Bipolar disorder, current ep isode depressed, moderate F31.32 ; Post-traumatic stress disorder, chronic F43.12 and Personality disorder, unspecified F60.9 [place] [address] [address] Jul, Bipolar disorder, unspecifie d 296.80 and Posttraumatic stress disorder 309.81 [place] [address] [address] Jul, Post-traumatic stress disord er, chronic F43.12 ; Personality disorder, unspecified F60.9 and Bipolar disorder, current episode depressed, moderate F31.32 [place] [address] [place] [id number] [address] [place] [address] Jun, Bipolar disorder, unspecifie d 296.80 and Posttraumatic stress disorder 309.81 [place] [address] [place] [id number] [address] [place] [address] Jun, Bipolar disorder, unspecifie d 296.80 and Posttraumatic stress disorder 309.81 [place] [address] [place] [id number] [address] [place] [address] Jun, Posttraumatic stress disorde r 309.81 and Bipolar disorder, unspecified 296.80 [place] [address] [place] [id number] [address] [place] [address] May, Bipolar II disorder 296.89 a nd Post traumatic stress disorder 309.81 [place] [address] [place] [id number] [address] [place] [address] 18 May, 2015 Bipolar II disorder 296.89 a nd Post traumatic stress disorder 309.81 [place] [address] [place] [id number] [address] [place] [address] 17 May, 2015 [facility] [address] [id number] [address] [place] [address] May, [facility] [address] [id number] [address] [place] [address] May, [facility] [address] [id number] [address] [place] [address] May, [facility] [address] [id number] [address] [place] [address] May, Bipolar II disorder 296.89 a nd Post traumatic stress disorder 309.81 [facility] [address] [id number] [address] [place] [address] May, Bipolar I disorder, most rec ent episode (or current) depressed, moderate 296.52 ; Posttraumatic stress disorder 309.81 and Anxiety state, unspecified 300.00 [facility] [address] [id number] [address] [place] [address] Apr, Bipolar II disorder 296.89 a nd Post traumatic stress disorder 309.81 [facility] [address] [id number] [address] [place] [address] Apr, [facility] [address] [facility] [id number] [address] [place] [address] Apr, Bipolar II disorder 296.89 a nd Post traumatic stress disorder 309.81 [facility] [address] [id number] [address] [place] [address] Apr, Bipolar II disorder 296.89 a nd Post traumatic stress disorder 309.81 [facility] [address] [id number] [address] [place] [address] Mar, Bipolar II disorder 296.89 a nd Post traumatic stress disorder 309.81 [facility] [address] [id number] [address] [place] [address] Mar, [facility] [address] [id number] [address] [place] [address] Mar, Bipolar II disorder 296.89 a nd Post traumatic stress disorder 309.81 [facility] [address] [id number] [address] [place] [address] Mar, Bipolar II disorder 296.89 a nd Post traumatic stress disorder 309.81 [facility] [address] [id number] [address] [place] [address] Mar, Bipolar II disorder 296.89 a nd Post traumatic stress disorder 309.81 [facility] [address] [id number] [address] [place] [address] Mar, [facility] [address] [id number] [address] [place] [address] Mar, Bipolar II disorder 296.89 a nd Post traumatic stress disorder 309.81 [facility] [address] [id number] [address] [place] [address] Feb, Bipolar II disorder 296.89 a nd Post traumatic stress disorder 309.81 [facility] [address] [id number] [address] [place] [address] Feb, [facility] [address] [id number] [address] [place] [address] Feb, Bipolar disorder, unspecifie d 296.80 and Anxiety state, unspecified 300.00 [facility] [address] [id number] [address] [place] [address] Feb, [facility] [address] [id number] [address] [place] [address] Feb, [facility] [address] [id number] [address] [place] [address] January, [facility] [address] [facility] [id number] [address] [place] [address] Dec, [facility] [address] [id number] [address] [place] [address] Dec, [facility] [address] [facility] [id number] [address] [place] [address] Nov, [facility] [address] [id number] [address] [place] [address], [place] [address] Nov, [facility] [address] [id number] [address] [place] [address], [place] [address] Nov, [facility] [address] [id number] [address] [place] [address], [place] [address] Nov, [facility] [address] [id number] [address] [place] [address], [place] [address] Nov, [facility] [address] [id number] [address] [place] [address], [place] [address] Nov, [facility] [address] [id number] [address] [place] [address], [place] [address] Nov, [facility] [address] [id number] [address] [place] [address], [place] [address] Nov, [facility] [address] [id number] [address] [place] [address], [place] [address] Nov, [facility] [address] [id number] [address] [place] [address], [place] [address] Oct, [facility] [address] [id number] [address] [place] [address], [place] [address] Oct, [facility] [address] [id number] [address] [place] [address], [place] [address] Oct, [facility] [address] [id number] [address] [place] [address] Oct, 2014 [facility] [address] [id number] [address] [place] [address], [place] [address] Oct, [facility] [address] [id number] [address] [place] [address], [place] [address] Oct, [facility] [address] [id number] [address] [place] [address], [place] [address] Oct, [facility] [address] [id number] [address] [place] [address], [place] [address] Oct, [facility] [address] [id number] [address] [place] [address], [place] [address] Sep, [facility] [address] [id number] [address] [place] [address], [place] [address] Sep, [facility] [address] [id number] [address] [place] [address], [place] [address] Sep, [facility] [address] [id number] [address] [place] [address], [place] [address] Sep, [facility] [address] [id number] [address] [place] [address], [place] [address] Sep, [facility] [address] [id number] [address] [place] [address], [place] [address] Sep, [facility] [address] [id number] [address] [place] [address], [place] [address] Sep, [facility] [address] [id number] [address] [place] [address], [place] [address] Sep, [facility] [address] [id number] [address] [place] [address], [place] [address] Sep, [facility] [address] [id number] [address] [place] [address], [place] [address] Sep, [facility] [address] [id number] [address] [place] [address], [place] [address] Aug, [facility] [address] [id number] [address] [place] [address], [place] [address] Aug, [facility] [address] [id number] [address] [place] [address], [place] [address] Aug, [facility] [address] [id number] [address] [place] [address], [place] [address] Aug, [facility] [address] [id number] [address] [place] [address], [place] [address] Aug, [facility] [address] [id number] [address] [place] [address], [place] [address] Aug, [facility] [address] [id number] [address] [place] [address], [place] [address] Aug, [facility] [address] [id number] [address] [place] [address], [place] [address] Aug, [facility] [address] [id number] [address] [place] [address], [place] [address] Jul, [facility] [address] [id number] [address] [place] [address], [place] [address] Jul, [facility] [address] [id number] [address] [place] [address], [place] [address] Jul, [facility] [address] [id number] [address] [place] [address], [place] [address] Jul, [facility] [address] [id number] [address] [place] [address], [place] [address] Jul, [facility] [address] [id number] [address] [place] [address], [place] [address] Jul, [facility] [address] [id number] [address] [place] [address], [place] [address] Jul, [facility] [address] [id number] [address] [place] [address], [place] [address] Jul, [facility] [address] [id number] [address] [place] [address] Jul, [facility] [address] [id number] [address] [place] [address], [place] [address] Jun, [facility] [address] [id number] [address] [place] [address], [place] [address] Jun, [facility] [address] [id number] [address] [place] [address] Jun, [facility] [address] [id number] [address] [place] [address] Jun, [facility] [address] [id number] [address] [place] [address], [place] [address] Jun, [facility] [address] [id number] [address] [place] [address], [place] [address] Jun, [facility] [address] [id number] [address] [place] [address], [place] [address] May, [facility] [address] [id number] [address] [place] [address], [place] [address] May, [facility] [address] [id number] [address] [place] [address], [place] [address] May, [facility] [address] [id number] [address] [place] [address], [place] [address] May, [facility] [address] [id number] [address] [place] [address], [place] [address] May, [facility] [address] [id number] [address] [place] [address], [place] [address] May, [facility] [address] [id number] [address] [place] [address], [place] [address] Apr, [facility] [address] [id number] [address] [place] [address], [place] [address] Apr, [facility] [address] [id number] [address] [place] [address], [place] [address] Apr, [facility] [address] [id number] [address] [place] [address], [place] [address] Apr, [facility] [address] [id number] [address] [place] [address], [place] [address] Apr, [facility] [address] [id number] [address] [place] [address], [place] [address] Apr, [facility] [address] [id number] [address] [place] [address], [place] [address] Mar, [facility] [address] [id number] [facility] [address] Mar, 2013 [facility] [address] [id number] [facility] [address] Mar, 2013 [facility] [address] [id number] [address] [address] Mar, 2013 [facility] [address] [id number] [address] [place] [address], [place] [address] Mar, 2013 [facility] [address] [id number] [address] [place] [address], [place] [address] Mar, 2013 [facility] [address] [id number] [address] [place] [address], [place] [address] Mar, 2013 [facility] [address] [id number] [address] [place] [address], [place] [address] Mar, 2013 [facility] [address] [id number] [address] [place] [address], [place] [address] Mar, 2013 [facility] [address] [id number] [address] [place] [address], [place] [address] Mar, 2013 [facility] [address] [id number] [address] [place] [address], [place] [address] Mar, 2013 [facility] [address] [id number] [address] [place] [address], [place] [address] Mar, 2013 [facility] [address] [id number] [address] [place] [address], [place] [address] Mar, 2013 [facility] [address] [id number] [address] [place] [address], [place] [address] Mar, [facility] [address] [id number] [address] [place] [address], [place] [address] Mar, [facility] [address] [id number] [address] [place] [address], [place] [address] Mar, [facility] [address] [id number] [address] [place] [address], [place] [address] Feb, [facility] [address] [id number] [facility] [address] Feb, [facility] [address] [id number] [address] [place] [address], [place] [address] Feb, [facility] [address] [id number] [address] [place] [address], [place] [address] Feb, [facility] [address] [id number] [address] [place] [address], [place] [address] Feb, [facility] [address] [id number] [address] [place] [address], [place] [address] Feb, [facility] [address] [id number] [address] [place] [address], [place] [address] Feb, [facility] [address] [id number] [address] [place] [address], [place] [address] Feb, [facility] [address] [id number] [address] [place] [address], [place] [address] Feb, [facility] [address] [id number] [address] [place] [address], [place] [address] Feb, [facility] [address] [id number] [address] [place] [address], [place] [address] Feb, [facility] [address] [id number] [address] [place] [address], [place] [address] Feb, [facility] [address] [id number] [address] [place] [address], [place] [address] Feb, [facility] [address] [id number] [address] [place] [address], [place] [address] January, [facility] [address] [id number] [address] [place] [address], [place] [address] January, [facility] [address] [id number] [address] [place] [address], [place] [address] January, [facility] [address] [id number] [address] [place] [address], [place] [address] January, [facility] [address] [id number] [address] [place] [address], [place] [address] January, [facility] [address] [id number] [address] [place] [address], [place] [address] January, [facility] [address] [id number] [address] [place] [address], [place] [address] January, [facility] [address] [id number] [address] [place] [address], [place] [address] January, [facility] [address] [id number] [address] [place] [address], [place] [address] January, [facility] [address] [id number] [address] [place] [address], [place] [address] January, [facility] [address] [id number] [address] [place] [address], [place] [address] January, [facility] [address] [id number] [address] [place] [address], [place] [address] January, [facility] [address] [id number] [address] [place] [address], [place] [address] January, [facility] [address] [id number] [address] [place] [address], [place] [address] January, [facility] [address] [id number] [address] [place] [address], [place] [address] Dec, [facility] [address] [id number] [address] [place] [address], [place] [address] Dec, [facility] [address] [id number] [address] [place] [address], [place] [address] Dec, [facility] [address] [id number] [address] [place] [address], [place] [address] Dec, [facility] [address] [id number] [address] [place] [address], [place] [address] Dec, [facility] [address] [id number] [address] [place] [address], [place] [address] Dec, [facility] [address] [id number] [address] [place] [address], [place] [address] Dec, [facility] [address] [id number] [address] [place] [address], [place] [address] Dec, [facility] [address] [id number] [address] [place] [address], [place] [address] Nov, [facility] [address] [id number] [address] [place] [address], [place] [address] Nov, [facility] [address] [id number] [address] [place] [address], [place] [address] Nov, [facility] [address] [id number] [address] [place] [address], [place] [address] Nov, [facility] [address] [id number] [address] [place] [address], [place] [address] Oct, [facility] [address] [id number] [address] [place] [address], [place] [address] Oct, [facility] [address] [id number] [address] [place] [address], [place] [address] Oct, [facility] [address] [id number] [address] [place] [address], [place] [address] Oct, [facility] [address] [id number] [address] [place] [address], [place] [address] Oct, [facility] [address] [id number] [address] [place] [address], [place] [address] Oct, [facility] [address] [id number] [address] [place] [address], [place] [address] Sep, [facility] [address] [id number] [address] [place] [address], [place] [address] Sep, [facility] [address] [id number] [address] [place] [address], [place] [address] Sep, [facility] [address] [id number] [address] [place] [address], [place] [address] Sep, [facility] [address] [id number] [address] [place] [address], [place] [address] Sep, [facility] [address] [id number] [address] [place] [address], [place] [address] Sep, [facility] [address] [id number] [address] [place] [address], [place] [address] Sep, [facility] [address] [id number] [address] [place] [address], [place] [address] Sep, [facility] [address] [id number] [address] [place] [address], [place] [address] Sep, [facility] [address] [id number] [address] [place] [address], [place] [address] Sep, [facility] [address] [id number] [address] [place] [address], [place] [address] Aug, [facility] [address] [id number] [address] [place] [address], [place] [address] Aug, [facility] [address] [id number] [address] [place] [address], [place] [address] Aug, [facility] [address] [id number] [address] [place] [address], [place] [address] Aug, [facility] [address] [id number] [address] [place] [address], [place] [address] Aug, [facility] [address] [id number] [address] [place] [address], [place] [address] Aug, [facility] [address] [id number] [address] [place] [address], [place] [address] Aug, [facility] [address] [id number] [address] [place] [address], [place] [address] Aug, [facility] [address] [id number] [address] [place] [address], [place] [address] Jul, [facility] [address] [id number] [address] [place] [address], [place] [address] Jul, [facility] [address] [id number] [address] [place] [address], [place] [address] Jul, [facility] [address] [id number] [address] [place] [address], [place] [address] Jul, [facility] [address] [id number] [address] [place] [address], [place] [address] Jul, [facility] [address] [id number] [address] [place] [address], [place] [address] Jul, [facility] [address] [id number] [address] [place] [address], [place] [address] Jul, [facility] [address] [id number] [address] [place] [address], [place] [address] Jul, [facility] [address] [id number] [address] [place] [address], [place] [address] Jul, [facility] [address] [id number] [address] [place] [address], [place] [address] Jul, [facility] [address] [id number] [address] [place] [address], [place] [address] Jul, [facility] [address] [id number] [address] [place] [address], [place] [address] Jul, [facility] [address] [id number] [address] [place] [address], [place] [address] Jun, [facility] [address] [id number] [address] [place] [address], [place] [address] Jun, [facility] [address] [id number] [address] [place] [address], [place] [address] Jun, [facility] [address] [id number] [address] [place] [address], [place] [address] Jun, [facility] [address] [id number] [address] [place] [address], [place] [address] Jun, [facility] [address] [id number] [address] [place] [address], [place] [address] Jun, [facility] [address] [id number] [address] [place] [address], [place] [address] 16 Jun, 2013 [facility] [address] [id number] [address] [place] [address], [place] [address] Jun, [facility] [address] [id number] [address] [place] [address], [place] [address] 25 May, 2013 [facility] [address] [id number] [address] [place] [address], [place] [address] 18 May, 2013 [facility] [address] [id number] [address] [place] [address], [place] [address] 11 May, 2013 [facility] [address] [id number] [address] [place] [address], [place] [address] 10 May, 2013 [facility] [address] [id number] [address] [place] [address], [place] [address] 09 May, 2013 [facility] [address] [id number] [address] [place] [address], [place] [address] 04 May, 2013 [facility] [address] [id number] [address] [place] [address], [place] [address] 30 Apr, 2013 [facility] [address] [id number] [address] [place] [address], [place] [address] Apr, [facility] [address] [id number] [address] [place] [address], [place] [address] Apr, [facility] [address] [id number] [address] [place] [address], [place] [address] 14 Apr, 2013 [facility] [address] [id number] [address] [place] [address], [place] [address] 08 Apr, 2013 [facility] [address] [id number] [address] [place] [address] Mar, [facility] [address] [id number] [address] [place] [address] Mar, [facility] [address] [id number] [address] [place] [address] Mar, [facility] [address] [id number] [address] [place] [address] Feb, [facility] [address] [id number] [address] [place] [address] Feb, [facility] [address] [id number] [address] [place] [address] Feb, [facility] [address] [id number] [address] [place] [address] January, [facility] [address] [id number] [address] [place] [address] January, [facility] [address] [id number] [address] [place] [address] Dec, [facility] [address] [id number] [address] [place] [address] Nov, [facility] [address] [id number] [address] [place] [address] Nov, IMMUNIZATIONS No Known Immunizations SOCIAL HISTORY [...]
--- OUTSIDE RECORDS SUMMARY | 2020-03-26 15:22 | XMS REPORT ---
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 Attendant Name Role Phone Migration, Doctor Unavailable Unavailable PROBLEMS Type Condition ICD9-CM Code LPF02-PB Code Onset Dates Condition S tatus SNOMED Code Problem senior care systemic steroid user Z79.52 Active 53735233547261176 Problem Rheumatoid arthritis involvi ng multiple sites, unspecified rheumatoid factor presence M06.9 Active 08332586 Problem Personality disorder, unspecified F60.9 Active 51600544 Problem Post-traumatic stress disorder, chronic F43.12 Active 49567830 Problem Bipolar disorder, current episode depressed, moderate F31.32 Active 280332933 Problem Anorexia nervosa F50.00 Active 568 03609 ALLERGIES No Information ENCOUNTERS Encounter Location Date Diagnosis [address] [id number] [address] January, [facility] [address] [facility] [id number] [place] [address] January, [address] [id number], [place] [address] January, [address] [id number], [place] [address] January, [address] [id number], [place] [address] January, [address] 340[address] [id number], [place] [address] January, Bipolar disorder, current ep isode depressed, moderate F31.[address] [id number], [place] [address] January, Bipolar disorder, current ep isode depressed, moderate F31.[address] [id number], [place] [address] January, [address] [id number] [place] [address] January, [address] [id number], [place] [address] January, [address] [id number], [place] [address] January, [facility] [address] [facility] [id number] [address] [place] [address] January, Bipolar disorder, current ep isode depressed, moderate F31.32 ; Post-traumatic stress disorder, chronic F43.12 and Anorexia nervosa F50.00 [facility] [address] [place] [address] January, [facility] resident Z59.3 ; Rheumatoid arthritis involving multiple sites, unspecified rheumatoid factor presence M06.9 ; Post-traumatic stress disorder, chronic F43.12 and Bipolar disorder, current episode depressed, moderate F31.[address] 340[address] [id number], [place] [address] January, [facility] [address] [facility] [id number] [address] [place] [address] Dec, Bipolar disorder, current ep isode depressed, moderate F31.32 ; Post-traumatic stress disorder, chronic F43.12 and Anorexia nervosa F50.00 [facility] [address] [id number] [address] [place] [address] Dec, Bipolar disorder, current ep isode depressed, moderate F31.32 ; Post-traumatic stress disorder, chronic F43.12 and Anorexia nervosa F50.[address] 340[address] [id number], [place] [address] Dec, Bipolar disorder, current ep isode depressed, moderate F31.32 [facility] [address] [id number] [address] [place] [address] Dec, [facility] [address] [id number] [address] [place] [address] 15 Dec, 2019 Bipolar disorder, current ep isode depressed, moderate F31.32 ; Post-traumatic stress disorder, chronic F43.12 and Anorexia nervosa F50.00 [facility] [address] [place] [address] 15 Dec, 2019 Bipolar disorder, current episode depressed, moderate F31.32 and Rheumatoid arthritis involving multiple sites, unspecified rheumatoid factor presence M06.9 [facility] [address] [facility] [id number] [address] [place] [address] 14 Dec, 2019 [facility] [address] [facility] [id number] [address] [place] [address] 09 Dec, 2019 Bipolar disorder, current ep isode depressed, moderate F31.32 ; Post-traumatic stress disorder, chronic F43.12 and Anorexia nervosa F50.00 [facility] [address] [facility] [id number] [address] [place] [address] 08 Dec, 2019 Bipolar disorder, current ep isode depressed, moderate F31.32 ; Post-traumatic stress disorder, chronic F43.12 and Anorexia nervosa F50.00 [facility] [address] [facility] [id number] [address] [place] [address] 07 Dec, 2019 [facility] [address] [facility] [id number] [address] [place] [address] 04 Dec, 2019 [facility] [address] [facility] [id number] [place] [address] 24 Nov, 2019 [facility] [address] [facility] [id number] [address] [place] [address] Nov, [facility] [address] [facility] [id number] [address] [place] [address] Nov, [facility] [address] [place] [id number] [place] [address] Oct, Rheumatoid arthritis involving multiple sites, unspecified rheumatoid factor presence M06.9 [facility] [address] 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 [facility] [address] [id number] [place] [address] Oct, Bipolar disorder, current episode depressed, moderate F31.32 ; Anorexia nervosa F50.00 ; Rheumatoid arthritis involving multiple sites, unspecified rheumatoid factor presence M06.9 and senior care systemic steroid user Z79.52 [facility] [address] [facility] [id number] [address] [place] [address] Sep, [facility] [address] [facility] [id number] [address] [place] [address] Sep, Bipolar disorder, current ep isode depressed, moderate F31.32 ; Post-traumatic stress disorder, chronic F43.12 and Anorexia nervosa F50.00 [facility] [address] [facility] [id number] [address] [place] [address] Sep, [facility] [address] [facility] [id number] [address] [place] [address] Aug, [facility] [address] [facility] [id number] [address] [place] [address] Aug, [facility] [address] [facility] [id number] [address] [place] [address] Aug, [facility] [address] [facility] [id number] [address] [place] [address] Aug, Bipolar disorder, current ep isode depressed, moderate F31.32 ; Post-traumatic stress disorder, chronic F43.12 ; Anorexia nervosa F50.00 and Personality disorder, unspecified F60.9 [facility] [address] [facility] [id number] [address] [place] [address] Jul, Bipolar disorder, current ep isode depressed, moderate F31.32 and Anorexia nervosa F50.00 [facility] [address] [facility] [id number] [address] [place] [address] Jul, [facility] [address] [facility] [id number] [address] [place] [address] Jul, [place] [address] [id number] [address] [place] [address] Jul, [place] [address] [id number] [address] [place] [address] Jun, Bipolar disorder, current ep isode depressed, moderate F31.32 ; Post-traumatic stress disorder, chronic F43.12 and Eating disorder, unspecified F50.9 [place] [address] [id number] [address] [place] [address] May, [place] [address] [id number] [address] [place] [address] Apr, Bipolar disorder, current ep isode depressed, moderate F31.32 ; Post-traumatic stress disorder, chronic F43.12 and Eating disorder, unspecified F50.9 [place] [address] [id number] [address] [place] [address] Feb, Bipolar disorder, current ep isode depressed, moderate F31.32 ; Post-traumatic stress disorder, chronic F43.12 and Personality disorder, unspecified F60.9 [place] [address] [id number] [address] [place] [address] Feb, Bipolar II disorder F31.81 [place] [address] [id number] [address] [place] [address] Dec, Bipolar disorder, current ep isode depressed, moderate F31.32 ; Post-traumatic stress disorder, chronic F43.12 and Personality disorder, unspecified F60.9 [place] [address] [id number] [address] [place] [address] 14 Dec, 2015 Bipolar disorder, current ep isode depressed, moderate F31.32 ; Post-traumatic stress disorder, chronic F43.12 and Personality disorder, unspecified F60.9 [place] [address] [id number] [address] [place] [address] 08 Dec, 2015 [place] [address] [id number] [address] [place] [address] Dec, [place] [address] [facility] [id number] [address] [place] [address] Dec, Bipolar disorder, current ep isode depressed, moderate F31.32 ; Post-traumatic stress disorder, chronic F43.12 and Personality disorder, unspecified F60.9 [place] [address] [facility] [id number] [address] [place] [address] Nov, [place] [address] [facility] [id number] [address] [place], [place] [address] Nov, Bipolar disorder, current ep isode depressed, moderate F31.32 ; Post-traumatic stress disorder, chronic F43.12 and Personality disorder, unspecified F60.9 [place] [address] [facility] [id number] [address] [place] [address] Nov, Bipolar disorder, current ep isode depressed, moderate F31.32 ; Post-traumatic stress disorder, chronic F43.12 and Personality disorder, unspecified F60.9 [place] [address] [facility] [id number] [address] [place] [address] Oct, [place] [address] [facility] [id number] [address] [place] [address] Oct, Bipolar disorder, current ep isode depressed, moderate F31.32 ; Post-traumatic stress disorder, chronic F43.12 and Personality disorder, unspecified F60.9 [place] [address] [facility] [id number] [address] [place] [address] Oct, Bipolar disorder, current ep isode depressed, moderate F31.32 ; Post-traumatic stress disorder, chronic F43.12 and Personality disorder, unspecified F60.9 [place] [address] [facility] [id number] [address] [place] [address] Aug, Bipolar II disorder F31.81 a nd Post-traumatic stress disorder, unspecified F43.10 [place] [address] [facility] [id number] [address] [place] [address] Aug, Bipolar disorder, current ep isode depressed, moderate F31.32 ; Post-traumatic stress disorder, chronic F43.12 and Personality disorder, unspecified F60.9 [facility] [address] [facility] [id number] [address] [place] [address] Jul, Bipolar disorder, unspecifie d 296.80 and Posttraumatic stress disorder 309.81 [facility] [address] [facility] [id number] [address] [place] [address] Jul, Post-traumatic stress disord er, chronic F43.12 ; Personality disorder, unspecified F60.9 and Bipolar disorder, current episode depressed, moderate F31.32 [place] [address] [facility] [id number] [address] [place] [address] Jun, Bipolar disorder, unspecifie d 296.80 and Posttraumatic stress disorder 309.81 [place] [address] [facility] [id number] [address] [place] [address] Jun, Bipolar disorder, unspecifie d 296.80 and Posttraumatic stress disorder 309.81 [place] [address] [facility] [id number] [address] [place] [address] Jun, Posttraumatic stress disorde r 309.81 and Bipolar disorder, unspecified 296.80 [facility] [address] [facility] [id number] [address] [place] [address] May, Bipolar II disorder 296.89 a nd Post traumatic stress disorder 309.81 [facility] [address] [id number] [address] [place] [address] May, Bipolar II disorder 296.89 a nd Post traumatic stress disorder 309.81 [facility] [address] [id number] [address] [place] [address] 17 May, 2015 [facility] [address] [facility] [id number] [address] [place] [address] May, [facility] [address] [facility] [id number] [address] [place] [address] May, [facility] [address] [id number] [address] [place] [address] May, [facility] [address] [id number] [address] [place] [address] May, Bipolar II disorder 296.89 a nd Post traumatic stress disorder 309.81 [facility] [address] [id number] [address] [place] [address] May, Bipolar I disorder, most rec ent episode (or current) depressed, moderate 296.52 ; Posttraumatic stress disorder 309.81 and Anxiety state, unspecified 300.00 [facility] [address] [id number] [address] [place] [address] Apr, Bipolar II disorder 296.89 a nd Post traumatic stress disorder 309.81 [facility] [address] [id number] [address] [place] [address] Apr, [facility] [address] [id number] [address] [place] [address] Apr, Bipolar II disorder 296.89 a nd Post traumatic stress disorder 309.81 [facility] [address] [id number] [address] [place] [address] Apr, Bipolar II disorder 296.89 a nd Post traumatic stress disorder 309.81 [facility] [address] [id number] [address] [place] [address] Mar, Bipolar II disorder 296.89 a nd Post traumatic stress disorder 309.81 [facility] [address] [id number] [address] [place] [address] Mar, [facility] [address] [id number] [address] [place] [address] Mar, Bipolar II disorder 296.89 a nd Post traumatic stress disorder 309.81 [facility] [address] [id number] [address] [place] [address] Mar, Bipolar II disorder 296.89 a nd Post traumatic stress disorder 309.81 [facility] [address] [id number] [address] [place] [address] Mar, Bipolar II disorder 296.89 a nd Post traumatic stress disorder 309.81 [facility] [address] [id number] [address] [place] [address] Mar, [facility] [address] [facility] [id number] [address] [place] [address] Mar, Bipolar II disorder 296.89 a nd Post traumatic stress disorder 309.81 [facility] [address] [id number] [address] [place] [address] Feb, Bipolar II disorder 296.89 a nd Post traumatic stress disorder 309.81 [facility] [address] [id number] [address] [place] [address] Feb, [facility] [address] [facility] [id number] [address] [place] [address] Feb, Bipolar disorder, unspecifie d 296.80 and Anxiety state, unspecified 300.00 [facility] [address] [id number] [address] [place] [address] Feb, [facility] [address] [id number] [address] [place] [address] Feb, [facility] [address] [facility] [id number] [address] [place] [address] January, [facility] [address] [facility] [id number] [address] [place] [address] Dec, [facility] [address] [id number] [address] [place] [address] Dec, [facility] [address] [id number] [address] [place] [address] Nov, [facility] [address] [id number] [address] [place] [address] Nov, [facility] [address] [facility] [id number] [address] [place] [address] Nov, [facility] [address] [id number] [address] [place] [address], [place] [address] Nov, [facility] [address] [id number] [address] [place] [address], [place] [address] Nov, [facility] [address] [id number] [address] [place] [address], [place] [address] Nov, [facility] [address] [id number] [address] [place] [address], [place] [address] Nov, [facility] [address] [id number] [address] [place] [address], [place] [address] Nov, [facility] [address] [id number] [address] [place] [address], [place] [address] Nov, [facility] [address] [id number] [address] [place] [address], [place] [address] Oct, [facility] [address] [id number] [address] [place] [address], [place] [address] Oct, [facility] [address] [id number] [address] [place] [address], [place] [address] Oct, [facility] [address] [id number] [address] [place] [address], [place] [address] Oct, [facility] [address] [id number] [address] [place] [address], [place] [address] Oct, [facility] [address] [id number] [address] [place] [address] Oct, [facility] [address] [id number] [address] [place] [address], [place] [address] Oct, [facility] [address] [id number] [address] [place] [address], [place] [address] Oct, [facility] [address] [id number] [address] [place] [address] Sep, [facility] [address] [id number] [address] [place] [address] Sep, [facility] [address] [id number] [address] [place] [address], [place] [address] Sep, [facility] [address] [id number] [address] [place] [address], [place] [address] Sep, [facility] [address] [id number] [address] [place] [address], [place] [address] Sep, [facility] [address] [id number] [address] [place] [address], [place] [address] Sep, [facility] [address] [id number] [address] [place] [address], [place] [address] Sep, [facility] [address] [id number] [address] [place] [address], [place] [address] Sep, [facility] [address] [id number] [address] [place] [address], [place] [address] Sep, [facility] [address] [id number] [address] [place] [address], [place] [address] Sep, [facility] [address] [id number] [address] [place] [address], [place] [address] Aug, [facility] [address] [id number] [address] [place] [address], [place] [address] Aug, [facility] [address] [id number] [address] [place] [address], [place] [address] Aug, [facility] [address] [id number] [address] [place] [address], [place] [address] Aug, [facility] [address] [id number] [address] [place] [address], [place] [address] Aug, [facility] [address] [id number] [address] [place] [address], [place] [address] Aug, [facility] [address] [id number] [address] [place] [address], [place] [address] Aug, [facility] [address] [id number] [address] [place] [address], [place] [address] Aug, [facility] [address] [id number] [address] [place] [address], [place] [address] Jul, [facility] [address] [id number] [address] [place] [address], [place] [address] Jul, [facility] [address] [id number] [address] [place] [address], [place] [address] Jul, [facility] [address] [id number] [address] [place] [address], [place] [address] Jul, [facility] [address] [id number] [address] [place] [address], [place] [address] Jul, [facility] [address] [id number] [address] [place] [address], [place] [address] Jul, [facility] [address] [id number] [address] [place] [address], [place] [address] Jul, [facility] [address] [id number] [address] [place] [address], [place] [address] Jul, [facility] [address] [id number] [address] [place] [address], [place] [address] Jul, [facility] [address] [id number] [address] [place] [address], [place] [address] Jun, [facility] [address] [id number] [address] [place] [address], [place] [address] Jun, [facility] [address] [id number] [address] [place] [address], [place] [address] Jun, [facility] [address] [id number] [address] [place] [address], [place] [address] Jun, [facility] [address] [id number] [address] [place] [address], [place] [address] Jun, [facility] [address] [id number] [address] [place] [address], [place] [address] Jun, [facility] [address] [id number] [facility] [place] [address] May, [facility] [address] [id number] [address] [place] [address], [place] [address] May, [facility] [address] [id number] [address] [place] [address], [place] [address] May, [facility] [address] [id number] [address] [place] [address], [place] [address] May, [facility] [address] [id number] [address] [place] [address], [place] [address] May, [facility] [address] [id number] [address] [place] [address], [place] [address] May, [facility] [address] [id number] [address] [place] [address], [place] [address] Apr, [facility] [address] [id number] [address] [place] [address], [place] [address] Apr, [facility] [address] [id number] [address] [place] [address], [place] [address] Apr, [facility] [address] [id number] [address] [place] [address], [place] [address] Apr, [facility] [address] [id number] [address] [place] [address], [place] [address] Apr, [facility] [address] [id number] [address] [place] [address], [place] [address] Apr, [facility] [address] [id number] [address] [place] [address], [place] [address] Mar, [facility] [address] [id number] [address] [place] [address], [place] [address] Mar, [facility] [address] [id number] [address] [place] [address], [place] [address] Mar, [facility] [address] [id number] [address] [place] [address], [place] [address] Mar, 2013 [facility] [address] [id number] [facility] [place] [address] Mar, 2013 [facility] [address] [id number] [address] [place] [address], [place] [address] Mar, 2013 [facility] [address] [id number] [address] [place] [address], [place] [address] Mar, 2013 [facility] [address] [id number] [address] [place] [address], [place] [address] Mar, 2013 [facility] [address] [id number] [address] [place] [address], [place] [address] Mar, 2013 [facility] [address] [id number] [address] [place] [address], [place] [address] Mar, 2013 [facility] [address] [id number] [address] [place] [address], [place] [address] Mar, 2013 [facility] [address] [id number] [address] [place] [address], [place] [address] Mar, 2013 [facility] [address] [id number] [address] [place] [address], [place] [address] Mar, [facility] [address] [id number] [address] [place] [address], [place] [address] Mar, [facility] [address] [id number] [address] [place] [address], [place] [address] Mar, [facility] [address] [id number] [address] [place] [address], [place] [address] Mar, [facility] [address] [id number] [address] [place] [address], [place] [address] Feb, [facility] [address] [id number] [address] [place] [address], [place] [address] Feb, [facility] [address] [id number] [address] [place] [address], [place] [address] Feb, [facility] [address] [id number] [facility] [place] [address] Feb, [facility] [address] [id number] [facility] [place] [address] Feb, [facility] [address] [id number] [facility] [place] [address] Feb, [facility] [address] [id number] [address] [place] [address], [place] [address] Feb, [facility] [address] [id number] [address] [place] [address], [place] [address] Feb, [facility] [address] [id number] [address] [place] [address], [place] [address] Feb, [facility] [address] [id number] [address] [place] [address], [place] [address] Feb, [facility] [address] [id number] [address] [place] [address], [place] [address] Feb, [facility] [address] [id number] [address] [place] [address], [place] [address] Feb, [facility] [address] [id number] [address] [place] [address], [place] [address] Feb, [facility] [address] [id number] [address] [place] [address], [place] [address] January, [facility] [address] [id number] [address] [place] [address], [place] [address] January, [facility] [address] [id number] [address] [place] [address], [place] [address] January, [facility] [address] [id number] [address] [place] [address], [place] [address] January, [facility] [address] [id number] [address] [place] [address], [place] [address] January, [facility] [address] [id number] [address] [place] [address], [place] [address] January, [facility] [address] [id number] [address] [place] [address], [place] [address] January, [facility] [address] [id number] [address] [place] [address], [place] [address] January, [facility] [address] [id number] [address] [place] [address], [place] [address] January, [facility] [address] [id number] [address] [place] [address], [place] [address] January, [facility] [address] [id number] [address] [place] [address], [place] [address] January, [facility] [address] [id number] [address] [place] [address], [place] [address] January, [facility] [address] [id number] [address] [place] [address], [place] [address] January, [facility] [address] [id number] [address] [place] [address], [place] [address] January, [facility] [address] [id number] [address] [place] [address], [place] [address] Dec, [facility] [address] [id number] [address] [place] [address], [place] [address] Dec, [facility] [address] [id number] [address] [place] [address], [place] [address] Dec, [facility] [address] [id number] [address] [place] [address], [place] [address] Dec, [facility] [address] [id number] [address] [place] [address], [place] [address] Dec, [facility] [address] [id number] [address] [place] [address], [place] [address] Dec, [facility] [address] [id number] [address] [place] [address], [place] [address] Dec, [facility] [address] [id number] [address] [place] [address], [place] [address] Dec, [facility] [address] [id number] [address] [place] [address], [place] [address] Nov, [facility] [address] [id number] [address] [place] [address], [place] [address] Nov, [facility] [address] [id number] [address] [place] [address], [place] [address] Nov, [facility] [address] [id number] [address] [place] [address], [place] [address] Nov, [facility] [address] [id number] [address] [place] [address], [place] [address] Oct, [facility] [address] [id number] [address] [place] [address], [place] [address] Oct, [facility] [address] [id number] [address] [place] [address], [place] [address] Oct, [facility] [address] [id number] [address] [place] [address], [place] [address] Oct, [facility] [address] [id number] [address] [place] [address], [place] [address] Oct, [facility] [address] [id number] [address] [place] [address], [place] [address] Oct, [facility] [address] [id number] [address] [place] [address], [place] [address] Sep, [facility] [address] [id number] [address] [place] [address], [place] [address] Sep, [facility] [address] [id number] [address] [place] [address], [place] [address] Sep, [facility] [address] [id number] [address] [place] [address], [place] [address] Sep, [facility] [address] [id number] [address] [place] [address] [address] Sep, [facility] [address] [id number] [address] [place] [address], [place] [address] Sep, [facility] [address] [id number] [address] [place] [address], [place] [address] Sep, [facility] [address] [id number] [address] [place] [address], [place] [address] Sep, [facility] [address] [id number] [address] [place] [address], [place] [address] Sep, [facility] [address] [id number] [address] [place] [address], [place] [address] Sep, [facility] [address] [id number] [address] [place] [address], [place] [address] Aug, [facility] [address] [id number] [address] [place] [address], [place] [address] Aug, [facility] [address] [id number] [address] [place] [address], [place] [address] Aug, [facility] [address] [id number] [address] [place] [address], [place] [address] Aug, [facility] [address] [id number] [address] [place] [address], [place]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
--- OUTSIDE RECORDS SUMMARY | 2020-03-26 15:23 | XMS REPORT ---
Author Author Shireen YOUNGER [facility] Address [address] [place] [address] Care Team Providers [facility] Name Role Phone PEMA YOUNGER Unavailable PROBLEMS Type Condition ICD9-CM Code EKR88-OP Code Onset Dates Condition S tatus SNOMED Code Problem half-way systemic steroid user Z79.52 Active 27724773234665052 Problem Rheumatoid arthritis involvi ng multiple sites, unspecified rheumatoid factor presence M06.9 Active 80278623 Problem Personality disorder, unspecified F60.9 Active 23280959 Problem Post-traumatic stress disorder, chronic F43.12 Active 31252703 Problem Bipolar disorder, current episode depressed, moderate F31.32 Active 841284306 Problem Anorexia nervosa F50.00 Active 568 94724 ALLERGIES No Information ENCOUNTERS Encounter Location Date Diagnosis [facility] [address] [facility] [id number] [address] [place] [address] January, [address] [id number] [address] January, [address] [id number], [place] [address] January, [facility] [address] [facility] [id number] [address] [place] [address] January, Bipolar disorder, current ep isode depressed, moderate F31.32 ; Post-traumatic stress disorder, chronic F43.12 and Anorexia nervosa F50.00 [facility] [address] [place] [address] January, group home resident Z59.3 ; Rheumatoid arthritis involving multiple sites, unspecified rheumatoid factor presence M06.9 ; Post-traumatic stress disorder, chronic F43.12 and Bipolar disorder, current episode depressed, moderate F31.[address] [id number] [address] 05 Jan, 2020 [facility] [address] [id number] [address] [place] [phone] 30 Dec, 2019 Bipolar disorder, current ep isode depressed, moderate F31.32 ; Post-traumatic stress disorder, chronic F43.12 and Anorexia nervosa F50.00 [facility] [address] [facility] [id number] [address] [place] [address] 22 Dec, 2019 Bipolar disorder, current ep isode depressed, moderate F31.32 ; Post-traumatic stress disorder, chronic F43.12 and Anorexia nervosa F50.[address] [id number], [place] [address] 16 Dec, 2019 Bipolar disorder, current ep isode depressed, moderate F31.32 [facility] [address] [facility] [id number] [address] [place] [phone] 15 Dec, 2019 [facility] [address] [facility] [id number] [address] [place] [address] 15 Dec, 2019 Bipolar disorder, current ep isode depressed, moderate F31.32 ; Post-traumatic stress disorder, chronic F43.12 and Anorexia nervosa F50.00 [facility] [address] [place] [address] 15 Dec, 2019 [facility] [address] [facility] [id number] [address] [place] [phone] 14 Dec, 2019 [facility] [address] [id number] [address] [place] [phone] 09 Dec, 2019 Bipolar disorder, current ep isode depressed, moderate F31.32 ; Post-traumatic stress disorder, chronic F43.12 and Anorexia nervosa F50.00 [facility] [address] [id number] [address] [place] [phone] 08 Dec, 2019 Bipolar disorder, current ep isode depressed, moderate F31.32 ; Post-traumatic stress disorder, chronic F43.12 and Anorexia nervosa F50.00 [facility] [address] [id number] [address] [place] [address] Dec, [facility] [address] [facility] [id number] [address] [place] [address] Dec, [facility] [place] [address] [facility] [id number] [place] [address] Nov, [facility] [address] [facility] [id number] [address] [place] [address] Nov, [facility] [address] [facility] [id number] [address] [place] [address] Nov, [facility] [place] [address] [facility] [id number] [place] [address] Oct, Rheumatoid arthritis involving multiple sites, unspecified rheumatoid factor presence M06.9 [facility] [address] [facility] [id number] [place] [address] Oct, 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 [facility] [address] [place] [id number] [place] [address] Oct, Bipolar disorder, current episode depressed, moderate F31.32 ; Anorexia nervosa F50.00 ; Rheumatoid arthritis involving multiple sites, unspecified rheumatoid factor presence M06.9 and 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 [facility] [address] [facility] [id number] [address] [place] [address] Sep, [facility] [address] [facility] [id number] [address] [place] [address] Sep, Bipolar disorder, current ep isode depressed, moderate F31.32 ; Post-traumatic stress disorder, chronic F43.12 and Anorexia nervosa F50.00 [facility] [address] [facility] [id number] [address] [place] [address] Sep, [facility] [address] [facility] [id number] [address] [place] [address] Aug, [facility] [address] [facility] [id number] [address] [place] [address] Aug, [facility] [address] [id number] [address] [place] [address] Aug, [place] [address] [id number] [address] [place] [address] Aug, Bipolar disorder, current ep isode depressed, moderate F31.32 ; Post-traumatic stress disorder, chronic F43.12 ; Anorexia nervosa F50.00 and Personality disorder, unspecified F60.9 [place] [address] [facility] [id number] [address] [place] [address] Jul, Bipolar disorder, current ep isode depressed, moderate F31.32 and Anorexia nervosa F50.00 [place] [address] [id number] [address] [place] [address] Jul, [place] [address] [facility] [id number] [address] [place] [address] Jul, [place] [address] [facility] [id number] [address] [place] [address] Jul, [place] [address] [facility] [id number] [address] [place] [phone] Jun, Bipolar disorder, current ep isode depressed, moderate F31.32 ; Post-traumatic stress disorder, chronic F43.12 and Eating disorder, unspecified F50.9 [place] [address] [place] [id number] [address] [place] [address] May, [place] [address] [id number] [address] [place] [phone] Apr, Bipolar disorder, current ep isode depressed, moderate F31.32 ; Post-traumatic stress disorder, chronic F43.12 and Eating disorder, unspecified F50.9 [place] [address] [facility] [id number] [address] [place] [phone] Feb, Bipolar disorder, current ep isode depressed, moderate F31.32 ; Post-traumatic stress disorder, chronic F43.12 and Personality disorder, unspecified F60.9 [place] [address] [place] [id number] [address] [place] [address] 14 Feb, 2016 Bipolar II disorder F31.81 [facility] [address] [id number] [address] [place], [place] [address] Dec, Bipolar disorder, current ep isode depressed, moderate F31.32 ; Post-traumatic stress disorder, chronic F43.12 and Personality disorder, unspecified F60.9 [place] [address] [facility] [id number] [address] [place], [place] [address] Dec, Bipolar disorder, current ep isode depressed, moderate F31.32 ; Post-traumatic stress disorder, chronic F43.12 and Personality disorder, unspecified F60.9 [place] [address] [facility] [id number] [address] [place] [address] Dec, [place] [address] [facility] [id number] [address] [place] [address] Dec, [place] [address] [facility] [id number] [address] [place] [address] Dec, Bipolar disorder, current ep isode depressed, moderate F31.32 ; Post-traumatic stress disorder, chronic F43.12 and Personality disorder, unspecified F60.9 [place] [address] [facility] [id number] [address] [place] [phone] Nov, [place] [address] [facility] [id number] [address] [place] [address] Nov, Bipolar disorder, current ep isode depressed, moderate F31.32 ; Post-traumatic stress disorder, chronic F43.12 and Personality disorder, unspecified F60.9 [place] [id number] [id number] [address] [place] [phone] Nov, Bipolar disorder, current ep isode depressed, moderate F31.32 ; Post-traumatic stress disorder, chronic F43.12 and Personality disorder, unspecified F60.9 [place] [id number] [facility] [id number] [address] [place] [address] Oct, [place] [address] [facility] [id number] [address] [place] [address] Oct, Bipolar disorder, current ep isode depressed, moderate F31.32 ; Post-traumatic stress disorder, chronic F43.12 and Personality disorder, unspecified F60.9 [place] [address] [facility] [id number] [address] [place] [address] Oct, Bipolar disorder, current ep isode depressed, moderate F31.32 ; Post-traumatic stress disorder, chronic F43.12 and Personality disorder, unspecified F60.9 [place] [address] [facility] [id number] [address] [place] [address] Aug, Bipolar II disorder F31.81 a nd Post-traumatic stress disorder, unspecified F43.10 [place] [address] [facility] [id number] [address] [place] [address] Aug, Bipolar disorder, current ep isode depressed, moderate F31.32 ; Post-traumatic stress disorder, chronic F43.12 and Personality disorder, unspecified F60.9 [place] [address] [facility] [id number] [address] [place] [address] Jul, Bipolar disorder, unspecifie d 296.80 and Posttraumatic stress disorder 309.81 [place] [address] [facility] [id number] [address] [place] [phone] Jul, Post-traumatic stress disord er, chronic F43.12 ; Personality disorder, unspecified F60.9 and Bipolar disorder, current episode depressed, moderate F31.32 [place] [address] [facility] [id number] [address] [place] [address] Jun, Bipolar disorder, unspecifie d 296.80 and Posttraumatic stress disorder 309.81 [place] [address] [facility] [id number] [address] [place] [address] Jun, Bipolar disorder, unspecifie d 296.80 and Posttraumatic stress disorder 309.81 [place] [address] [facility] [id number] [address] [place] [address] Jun, Posttraumatic stress disorde r 309.81 and Bipolar disorder, unspecified 296.80 [facility] [address] [id number] [address] [place] [address] May, Bipolar II disorder 296.89 a nd Post traumatic stress disorder 309.81 [facility] [address] [facility] [id number] [address] [place] [address] May, 2014 Bipolar II disorder 296.89 a nd Post traumatic stress disorder 309.81 [facility] [address] [id number] [address] [place] [address] May, 2014 [facility] [address] [id number] [address] [place] [address] May, 2014 [facility] [address] [facility] [id number] [address] [place] [address] May, 2014 [facility] [address] [facility] [id number] [address] [place] [address] May, 2014 [facility] [address] [facility] [id number] [address] [place] [address] May, Bipolar II disorder 296.89 a nd Post traumatic stress disorder 309.81 [facility] [address] [facility] [id number] [address] [place] [address] May, Bipolar I disorder, most rec ent episode (or current) depressed, moderate 296.52 ; Posttraumatic stress disorder 309.81 and Anxiety state, unspecified 300.00 [facility] [address] [facility] [id number] [address] [place] [address] Apr, Bipolar II disorder 296.89 a nd Post traumatic stress disorder 309.81 [facility] [address] [facility] [id number] [address] [place] [address] Apr, [facility] [address] [facility] [id number] [address] [place] [address] Apr, Bipolar II disorder 296.89 a nd Post traumatic stress disorder 309.81 [facility] [address] [facility] [id number] [address] [place] [address] Apr, Bipolar II disorder 296.89 a nd Post traumatic stress disorder 309.81 [facility] [address] [id number] [address] [place] [address] Mar, Bipolar II disorder 296.89 a nd Post traumatic stress disorder 309.81 [facility] [address] [id number] [address] [place] [address] Mar, [facility] [address] [id number] [address] [place] [address] Mar, Bipolar II disorder 296.89 a nd Post traumatic stress disorder 309.81 [facility] [address] [id number] [address] [place] [address] Mar, Bipolar II disorder 296.89 a nd Post traumatic stress disorder 309.81 [facility] [address] [id number] [address] [place] [address] Mar, Bipolar II disorder 296.89 a nd Post traumatic stress disorder 309.81 [facility] [address] [id number] [address] [place] [address] Mar, [facility] [address] [id number] [address] [place] [phone] Mar, Bipolar II disorder 296.89 a nd Post traumatic stress disorder 309.81 [facility] [address] [id number] [address] [place] [address] Feb, Bipolar II disorder 296.89 a nd Post traumatic stress disorder 309.81 [facility] [address] [id number] [address] [place] [address] Feb, [facility] [address] [id number] [address] [place] [address] Feb, Bipolar disorder, unspecifie d 296.80 and Anxiety state, unspecified 300.00 [facility] [address] [id number] [address] [place] [phone] Feb, [facility] [address] [id number] [address] [place] [address], [place] [address] Feb, [facility] [address] [id number] [address] [place] [address], [place] [address] January, [facility] [address] [id number] [address] [place] [address], [place] [address] Dec, [facility] [address] [id number] [address] [place] [address], [place] [address] Dec, [facility] [address] [id number] [address] [place] [address], [place] [address] Nov, [facility] [address] [id number] [address] [place] [address], [place] [address] Nov, [facility] [address] [id number] [address] [place] [address], [place] [address] Nov, [facility] [address] [id number] [address] [place] [address], [place] [address] Nov, [facility] [address] [id number] [address] [place] [address], [place] [address] Nov, [facility] [address] [id number] [address] [place] [address], [place] [address] Nov, [facility] [address] [id number] [address] [place] [address], [place] [address] Nov, [facility] [address] [id number] [address] [place] [address], [place] [address] Nov, [facility] [address] [id number] [address] [place] [address], [place] [address] Nov, [facility] [address] [id number] [address] [place] [address], [place] [address] Oct, [facility] [address] [id number] [address] [place] [address], [place] [address] Oct, [facility] [address] [id number] [address] [place] [address], [place] [address] Oct, [facility] [address] [id number] [address] [place] [address], [place] [address] Oct, [facility] [address] [id number] [address] [place] [address], [place] [address] Oct, [facility] [address] [id number] [address] [place] [address], [place] [address] Oct, [facility] [address] [id number] [address] [place] [address], [place] [address] Oct, [facility] [address] [id number] [address] [place] [address], [place] [address] Oct, [facility] [address] [id number] [address] [place] [address], [place] [address] Sep, [facility] [address] [id number] [address] [place] [address], [place] [address] Sep, [facility] [address] [id number] [address] [place] [address], [place] [address] Sep, [facility] [address] [id number] [address] [place] [address], [place] [address] Sep, [facility] [address] [id number] [address] [place] [address], [place] [address] Sep, [facility] [address] [id number] [address] [place] [phone] Sep, [facility] [address] [id number] [address] [place] [address] Sep, [facility] [address] [id number] [address] [place] [address], [place] [address] Sep, [facility] [address] [id number] [address] [place] [address], [place] [address] Sep, [facility] [address] [id number] [address] [place] [address], [place] [address] Sep, [facility] [address] [id number] [address] [place] [address], [place] [address] Aug, [facility] [address] [id number] [address] [place] [address], [place] [address] Aug, [facility] [address] [id number] [address] [place] [address], [place] [address] Aug, [facility] [address] [id number] [address] [place] [address], [place] [address] Aug, [facility] [address] [id number] [address] [place] [address], [place] [address] Aug, [facility] [address] [id number] [address] [place] [address], [place] [address] Aug, [facility] [address] [id number] [address] [place] [address], [place] [address] Aug, [facility] [address] [id number] [address] [place] [address], [place] [address] Aug, [facility] [address] [id number] [address] [place] [address], [place] [address] Jul, [facility] [address] [id number] [address] [place] [address], [place] [address] Jul, [facility] [address] [id number] [address] [place] [address], [place] [address] Jul, [facility] [address] [id number] [address] [place] [address], [place] [address] Jul, [facility] [address] [id number] [address] [place] [address], [place] [address] Jul, [facility] [address] [id number] [address] [place] [address], [place] [address] Jul, [facility] [address] [id number] [address] [place] [address], [place] [address] Jul, [facility] [address] [id number] [address] [place] [address], [place] [address] Jul, [facility] [address] [id number] [address] [place] [address], [place] [address] Jul, [facility] [address] [id number] [address] [place] [address], [place] [address] Jun, [facility] [address] [id number] [address] [place] [address], [place] [address] Jun, [facility] [address] [id number] [address] [place] [address], [place] [address] Jun, [facility] [address] [id number] [address] [place] [address], [place] [address] Jun, [facility] [address] [id number] [address] [place] [address], [place] [address] Jun, [facility] [address] [id number] [address] [place] [address], [place] [address] Jun, [facility] [address] [id number] [address] [place] [address], [place] [address] May, [facility] [address] [id number] [address] [place] [address], [place] [address] May, [facility] [address] [id number] [address] [place] [address], [place] [address] May, [facility] [address] [id number] [address] [place] [address], [place] [address] May, [facility] [address] [id number] [address] [place] [address], [place] [address] May, [facility] [address] [id number] [address] [place] [address], [place] [address] May, [facility] [address] [id number] [address] [place] [address], [place] [address] Apr, [facility] [address] [id number] [address] [place] [address], [place] [address] Apr, [facility] [address] [id number] [address] [place] [address], [place] [address] Apr, [facility] [address] [id number] [facility] [place] [address] Apr, [facility] [address] [id number] [address] [place] [address], [place] [address] Apr, [facility] [address] [id number] [address] [place] [address], [place] [address] Apr, [facility] [address] [id number] [address] [place] [address], [place] [address] Mar, [facility] [address] [id number] [address] [place] [address], [place] [address] Mar, [facility] [address] [id number] [address] [place] [address], [place] [address] Mar, [facility] [address] [id number] [address] [place] [address], [place] [address] Mar, [facility] [address] [id number] [address] [place] [address], [place] [address] Mar, [facility] [address] [id number] [address] [place] [address], [place] [address] Mar, [facility] [address] [id number] [address] [place] [address], [place] [address] Mar, [facility] [address] [id number] [address] [place] [address], [place] [address] Mar, [facility] [address] [id number] [address] [place] [address], [place] [address] Mar, [facility] [address] [id number] [address] [place] [address], [place] [address] Mar, [facility] [address] [id number] [address] [place] [address], [place] [address] Mar, [facility] [address] [id number] [address] [place] [address], [place] [address] Mar, [facility] [address] [id number] [facility] [place] [address] Mar, [facility] [address] [id number] [address] [place] [address], [place] [address] Mar, [facility] [address] [id number] [address] [place] [address], [place] [address] Mar, [facility] [address] [id number] [address] [place] [address], [place] [address] Mar, [facility] [address] [id number] [address] [place] [address], [place] [address] Feb, [facility] [address] [id number] [address] [place] [address], [place] [address] Feb, [facility] [address] [id number] [address] [place] [address], [place] [address] Feb, [facility] [address] [id number] [address] [place] [address], [place] [address] Feb, [facility] [address] [id number] [address] [place] [address], [place] [address] Feb, [facility] [address] [id number] [address] [place] [address], [place] [address] Feb, [facility] [address] [id number] [address] [place] [address], [place] [address] Feb, [facility] [address] [id number] [address] [place] [address], [place] [address] Feb, [facility] [address] [id number] [address] [place] [address], [place] [address] Feb, [facility] [address] [id number] [address] [place] [address], [place] [address] Feb, [facility] [address] [id number] [address] [place] [address], [place] [address] Feb, [facility] [address] [id number] [address] [place] [address], [place] [address] Feb, [facility] [address] [id number] [address] [place] [address], [place] [address] Feb, [facility] [address] [id number] [address] [place] [address], [place] [address] January, [facility] [address] [id number] [address] [place] [address], [place] [address] January, [facility] [address] [id number] [address] [place] [address], [place] [address] January, [facility] [address] [id number] [address] [place] [address], [place] [address] January, [facility] [address] [id number] [address] [place] [address], [place] [address] January, [facility] [address] [id number] [address] [place] [address], [place] [address] January, [facility] [address] [id number] [address] [place] [address], [place] [address] January, [facility] [address] [id number] [address] [place] [address], [place] [address] January, [facility] [address] [id number] [address] [place] [address], [place] [address] January, [facility] [address] [id number] [address] [place] [address], [place] [address] January, [facility] [address] [id number] [address] [place] [address], [place] [address] January, [facility] [address] [id number] [address] [place] [address], [place] [address] January, [facility] [address] [id number] [address] [place] [address], [place] [address] January, [facility] [address] [id number] [address] [place] [address], [place] [address] January, [facility] [address] [id number] [address] [place] [address], [place] [address] Dec, [facility] [address] [id number] [address] [place] [address], [place] [address] Dec, [facility] [address] [id number] [address] [place] [address], [place] [address] Dec, [facility] [address] [id number] [address] [place] [address], [place] [address] Dec, [facility] [address] [id number] [address] [place] [address], [place] [address] Dec, [facility] [address] [id number] [address] [place] [address], [place] [address] Dec, [facility] [address] [id number] [address] [place] [address], [place] [address] Dec, [facility] [address] [id number] [address] [place] [address], [place] [address] Dec, [facility] [address] [id number] [address] [place] [address], [place] [address] Nov, [facility] [address] [id number] [address] [place] [address], [place] [address] Nov, [facility] [address] [id number] [address] [place] [address], [place] [address] Nov, [facility] [address] [id number] [address] [place] [address], [place] [address] Nov, [facility] [address] [id number] [address] [place] [address], [place] [address] Oct, [facility] [address] [id number] [address] [place] [address], [place] [address] Oct, [facility] [address] [id number] [address] [place] [address], [place] [address] Oct, [facility] [address] [id number] [address] [place] [address], [place] [address] Oct, [facility] [address] [id number] [address] [place] [address], [place] [address] Oct, [facility] [address] [id number] [address] [place] [address], [place] [address] Oct, [facility] [address] [id number] [address] [place] [address], [place] [address] Sep, [facility] [address] [id number] [address] [place] [address], [place] [address] Sep, [facility] [address] [id number] [address] [place] [address], [place] [address] Sep, [facility] [address] [id number] [address] [place] [address], [place] [address] Sep, [facility] [address] [id number] [address] [place] [address], [place] [address] Sep, [facility] [address] [id number] [address] [place] [address], [place] [address] Sep, [facility] [address] [id number] [address] [place] [address], [place] [address] Sep, [facility] [address] [id number] [address] [place] [address], [place] [address] Sep, [facility] [address] [id number] [address] [place] [address], [place] [address] Sep, [facility] [address] [id number] [address] [place] [address], [place] [address] Sep, [facility] [address] [id number] [address] [place] [address], [place] [address] Aug, [facility] [address] [id number] [address] [place] [address], [place] [address] Aug, [facility] [address] [id number] [address] [place] [address], [place] [address] Aug, [facility] [address] [id number] [address] [place] [address] Aug, [facility] [address] [id number] [address] [place] [address], [place] [address] Aug, [facility] [address] [id number] [address] [place] [address] Aug, [facility] [address] [id number] [address] [place] [address], [place] [address] Aug, [facility] [address] [id number] [address] [place] [address] Aug, [facility] [address] [id number] [address] [place] [address], [place] [address] Jul, [facility] [address] [id number] [address] [place] [address] Jul, [facility] [address] [id number] [address] [place] [address] Jul, [facility] [address] [id number] [address] [place] [address], [place] [address] Jul, [facility] [address]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
--- OUTSIDE RECORDS SUMMARY | 2020-03-26 15:23 | XMS REPORT ---
Author Author Shireen YOUNGER [facility] Address [address] [place] [address] Care Team Providers Care Human Services Case Manager Name Role Phone PEMA YOUNGER Unavailable PROBLEMS Type Condition ICD9-CM Code [id number] Code Onset Dates Condition S tatus SNOMED Code Problem USP systemic steroid user Z79.52 Active 78121875258155774 Problem Rheumatoid arthritis involvi ng multiple sites, unspecified rheumatoid factor presence M06.9 Active 63106960 Problem Personality disorder, unspecified F60.9 Active 56827062 Problem Post-traumatic stress disorder, chronic F43.12 Active 72799183 Problem Bipolar disorder, current episode depressed, moderate F31.32 Active 000910632 Problem Anorexia nervosa F50.00 Active 568 58475 ALLERGIES No Information ENCOUNTERS Encounter Location Date Diagnosis [address] [id number] [address] January, [facility] [address] [facility] [id number] [address] [place] [address] January, [address] [id number], [place] [address] January, [address] 340[address] [id number], [place] [address] January, [address] [id number], [place] [address] January, Bipolar disorder, current ep isode depressed, moderate F31.[address] [id number] [place] [address] January, Bipolar disorder, current ep isode depressed, moderate F31.[address] [id number], [place] [address] January, [address] [id number] [place] [address] January, [address] [id number] [place] [address] January, [address] [id number] [place] [address] January, [facility] [address] [facility] [id number] [address] [place] [address] January, Bipolar disorder, current ep isode depressed, moderate F31.32 ; Post-traumatic stress disorder, chronic F43.12 and Anorexia nervosa F50.00 [facility] [address] [place] [address] January, [facility] resident Z59.3 ; Rheumatoid arthritis involving multiple sites, unspecified rheumatoid factor presence M06.9 ; Post-traumatic stress disorder, chronic F43.12 and Bipolar disorder, current episode depressed, moderate F31.[address] [id number] [place] [address] January, [facility] [address] [facility] [id number] [address] [place] [address] Dec, Bipolar disorder, current ep isode depressed, moderate F31.32 ; Post-traumatic stress disorder, chronic F43.12 and Anorexia nervosa F50.00 [facility] [address] [facility] [id number] [address] [place] [address] Dec, Bipolar disorder, current ep isode depressed, moderate F31.32 ; Post-traumatic stress disorder, chronic F43.12 and Anorexia nervosa F50.[address] 340B [id number], [place] [address] Dec, Bipolar disorder, current ep isode depressed, moderate F31.32 [facility] [address] [facility] [id number] [address] [place] [address] Dec, [facility] [address] [facility] [id number] [address] [place] [address] 15 Dec, 2019 Bipolar disorder, current ep isode depressed, moderate F31.32 ; Post-traumatic stress disorder, chronic F43.12 and Anorexia nervosa F50.00 [facility] [address] [place] [address] 15 Dec, 2019 [facility] [address] [facility] [id number] [address] [place] [address] 14 Dec, 2019 [facility] [address] [facility] [id number] [address] [place] [address] 09 Dec, 2019 Bipolar disorder, current ep isode depressed, moderate F31.32 ; Post-traumatic stress disorder, chronic F43.12 and Anorexia nervosa F50.00 [facility] [address] [facility] [id number] [address] [place] [address] 08 Dec, 2019 Bipolar disorder, current ep isode depressed, moderate F31.32 ; Post-traumatic stress disorder, chronic F43.12 and Anorexia nervosa F50.00 [facility] [address] [facility] [id number] [address] [place] [address] 07 Dec, 2019 [facility] [address] [facility] [id number] [address] [place] [address] 04 Dec, [address] [facility] [id number] [place], [place] [address] 24 Nov, 2019 [place] [address] [facility] [id number] [address] [place] [address] Nov, [facility] [address] [facility] [id number] [address] [place] [address] Nov, [facility] [id number] [place] [phone] Oct, Rheumatoid arthritis involving multiple sites, unspecified rheumatoid factor presence M06.9 [facility] [address] [place] [address] 2[address] Oct, USP systemic steroid user Z79.52 [facility] [address] [place] [id number] [place], [place] [address] 2-[address] Oct, Bipolar disorder, current episode depressed, moderate F31.32 ; Anorexia nervosa F50.00 ; Rheumatoid arthritis involving multiple sites, unspecified rheumatoid factor presence M06.9 and glove former systemic steroid user Z79.52 [facility] [address] [id number] [address] [place] [address] Sep, [facility] [address] [id number] [address] [place] [address] Sep, Bipolar disorder, current ep isode depressed, moderate F31.32 ; Post-traumatic stress disorder, chronic F43.12 and Anorexia nervosa F50.00 [place] [address] [id number] [address] [place] [address] Sep, [facility] [address] [id number] [address] [place] [address] Aug, [facility] [address] [id number] [address] [place] [address] Aug, [facility] [address] [id number] [address] [place] [address] Aug, [facility] [address] [facility] [id number] [address] [place] [address] Aug, Bipolar disorder, current ep isode depressed, moderate F31.32 ; Post-traumatic stress disorder, chronic F43.12 ; Anorexia nervosa F50.00 and Personality disorder, unspecified F60.9 [place] [address] [id number] [address] [place] [address] Jul, Bipolar disorder, current ep isode depressed, moderate F31.32 and Anorexia nervosa F50.00 [facility] [address] [facility] [id number] [address] [place] [address] Jul, [facility] [address] [facility] [id number] [address] [place] [address] Jul, [facility] [address] [facility] [id number] [address] [place] [address] Jul, [place] [address] [id number] [address] [place] [address] Jun, Bipolar disorder, current ep isode depressed, moderate F31.32 ; Post-traumatic stress disorder, chronic F43.12 and Eating disorder, unspecified F50.9 [place] [address] [facility] [id number] [address] [place] [address] May, [place] [address] [id number] [address] [place] [address] Apr, Bipolar disorder, current ep isode depressed, moderate F31.32 ; Post-traumatic stress disorder, chronic F43.12 and Eating disorder, unspecified F50.9 [place] [address] [facility] [id number] [address] [place] [address] Feb, Bipolar disorder, current ep isode depressed, moderate F31.32 ; Post-traumatic stress disorder, chronic F43.12 and Personality disorder, unspecified F60.9 [place] [address] [facility] [id number] [address] [place] [address] Feb, Bipolar II disorder F31.81 [place] [address] [facility] [id number] [address] [place] [address] Dec, Bipolar disorder, current ep isode depressed, moderate F31.32 ; Post-traumatic stress disorder, chronic F43.12 and Personality disorder, unspecified F60.9 [place] [address] [facility] [id number] [address] [place] [address] Dec, Bipolar disorder, current ep isode depressed, moderate F31.32 ; Post-traumatic stress disorder, chronic F43.12 and Personality disorder, unspecified F60.9 [place] [address] [facility] [id number] [address] [place] [address] Dec, [place] [address] [facility] [id number] [address] [place] [address] Dec, [place] [address] [facility] [id number] [address] [place] [address] Dec, Bipolar disorder, current ep isode depressed, moderate F31.32 ; Post-traumatic stress disorder, chronic F43.12 and Personality disorder, unspecified F60.9 [place] [address] [id number] [address] [place] [address] Nov, [place] [address] [id number] [address] [place], [place] [address] Nov, Bipolar disorder, current ep isode depressed, moderate F31.32 ; Post-traumatic stress disorder, chronic F43.12 and Personality disorder, unspecified F60.9 [place] [address] [id number] [address] [place] [address] Nov, Bipolar disorder, current ep isode depressed, moderate F31.32 ; Post-traumatic stress disorder, chronic F43.12 and Personality disorder, unspecified F60.9 [place] [address] [id number] [address] [place] [address] Oct, [place] [address] [id number] [address] [place] [address] Oct, Bipolar disorder, current ep isode depressed, moderate F31.32 ; Post-traumatic stress disorder, chronic F43.12 and Personality disorder, unspecified F60.9 [place] [address] [id number] [address] [place] [address] Oct, Bipolar disorder, current ep isode depressed, moderate F31.32 ; Post-traumatic stress disorder, chronic F43.12 and Personality disorder, unspecified F60.9 [place] [address] [id number] [address] [place] [address] Aug, Bipolar II disorder F31.81 a nd Post-traumatic stress disorder, unspecified F43.10 [place] [address] [id number] [address] [place] [address] Aug, Bipolar disorder, current ep isode depressed, moderate F31.32 ; Post-traumatic stress disorder, chronic F43.12 and Personality disorder, unspecified F60.9 [facility] [address] [facility] [id number] [address] [place] [address] Jul, Bipolar disorder, unspecifie d 296.80 and Posttraumatic stress disorder 309.81 [facility] [address] [facility] [id number] [address] [place] [address] Jul, Post-traumatic stress disord er, chronic F43.12 ; Personality disorder, unspecified F60.9 and Bipolar disorder, current episode depressed, moderate F31.32 [facility] [address] [facility] [id number] [address] [place] [address] Jun, Bipolar disorder, unspecifie d 296.80 and Posttraumatic stress disorder 309.81 [facility] [address] [facility] [id number] [address] [place] [address] Jun, Bipolar disorder, unspecifie d 296.80 and Posttraumatic stress disorder 309.81 [facility] [address] [place] [id number] [address] [place] [address] Jun, Posttraumatic stress disorde r 309.81 and Bipolar disorder, unspecified 296.80 [place] [address] [place] [id number] [address] [place] [address] May, Bipolar II disorder 296.89 a nd Post traumatic stress disorder 309.81 [facility] [address] [facility] [id number] [address] [place] [address] 18 May, 2015 Bipolar II disorder 296.89 a nd Post traumatic stress disorder 309.81 [facility] [address] [facility] [id number] [address] [place] [address] 17 May, 2015 [facility] [address] [facility] [id number] [address] [place] [address] 09 May, 2015 [facility] [address] [facility] [id number] [address] [place] [address] May, [facility] [address] [facility] [id number] [address] [place] [address] May, 2014 [facility] [address] [place] [id number] [address] [place] [address] May, Bipolar II disorder 296.89 a nd Post traumatic stress disorder 309.81 [facility] [address] [facility] [id number] [address] [place] [address] May, Bipolar I disorder, most rec ent episode (or current) depressed, moderate 296.52 ; Posttraumatic stress disorder 309.81 and Anxiety state, unspecified 300.00 [facility] [address] [facility] [id number] [address] [place] [address] Apr, Bipolar II disorder 296.89 a nd Post traumatic stress disorder 309.81 [facility] [address] [facility] [id number] [address] [place] [address] Apr, [facility] [address] [facility] [id number] [address] [place] [address] Apr, Bipolar II disorder 296.89 a nd Post traumatic stress disorder 309.81 [facility] [address] [facility] [id number] [address] [place] [address] Apr, Bipolar II disorder 296.89 a nd Post traumatic stress disorder 309.81 [facility] [address] [facility] [id number] [address] [place] [address] Mar, Bipolar II disorder 296.89 a nd Post traumatic stress disorder 309.81 [facility] [address] [facility] [id number] [address] [place] [address] Mar, [facility] [address] [facility] [id number] [address] [place] [address] Mar, Bipolar II disorder 296.89 a nd Post traumatic stress disorder 309.81 [facility] [address] [facility] [id number] [address] [place] [address] Mar, Bipolar II disorder 296.89 a nd Post traumatic stress disorder 309.81 [facility] [address] [facility] [id number] [address] [place] [address] Mar, Bipolar II disorder 296.89 a nd Post traumatic stress disorder 309.81 [facility] [address] [id number] [address] [place] [address] Mar, [facility] [address] [id number] [address] [place] [address] Mar, Bipolar II disorder 296.89 a nd Post traumatic stress disorder 309.81 [facility] [address] [id number] [address] [place] [address] Feb, Bipolar II disorder 296.89 a nd Post traumatic stress disorder 309.81 [facility] [address] [id number] [address] [place] [address] Feb, [facility] [address] [id number] [address] [place] [address] Feb, Bipolar disorder, unspecifie d 296.80 and Anxiety state, unspecified 300.00 [facility] [address] [id number] [address] [place] [address] Feb, [facility] [address] [id number] [address] [place] [address] Feb, [facility] [address] [facility] [id number] [address] [place] [address] January, [facility] [address] [facility] [id number] [address] [place] [address] Dec, [facility] [address] [facility] [id number] [address] [place] [address] Dec, [facility] [address] [id number] [address] [place] [address] Nov, [facility] [address] [id number] [address] [place] [address] Nov, [facility] [address] [id number] [address] [place] [address] Nov, [facility] [address] [id number] [address] [place] [address] Nov, [facility] [address] [id number] [address] [place] [address], [place] [address] Nov, [facility] [address] [id number] [address] [place] [address], [place] [address] Nov, [facility] [address] [id number] [address] [place] [address], [place] [address] Nov, [facility] [address] [id number] [address] [place] [address], [place] [address] Nov, [facility] [address] [id number] [address] [place] [address], [place] [address] Nov, [facility] [address] [id number] [address] [place] [address], [place] [address] Oct, [facility] [address] [id number] [address] [place] [address], [place] [address] Oct, [facility] [address] [id number] [address] [place] [address], [place] [address] Oct, [facility] [address] [id number] [address] [place] [address], [place] [address] Oct, [facility] [address] [id number] [address] [place] [address], [place] [address] Oct, [facility] [address] [id number] [address] [place] [address], [place] [address] Oct, [facility] [address] [id number] [address] [place] [address] Oct, [facility] [address] [id number] [address] [place] [address], [place] [address] Oct, [facility] [address] [id number] [address] [place] [address], [place] [address] Sep, [facility] [address] [id number] [address] [place] [address] Sep, [facility] [address] [id number] [address] [place] [address] Sep, [facility] [address] [id number] [address] [place] [address], [place] [address] Sep, [facility] [address] [id number] [address] [place] [address], [place] [address] Sep, [facility] [address] [id number] [address] [place] [address], [place] [address] Sep, [facility] [address] [id number] [address] [place] [address], [place] [address] Sep, [facility] [address] [id number] [address] [place] [address], [place] [address] Sep, [facility] [address] [id number] [address] [place] [address], [place] [address] Sep, [facility] [address] [id number] [address] [place] [address], [place] [address] Sep, [facility] [address] [id number] [address] [place] [address], [place] [address] Aug, [facility] [address] [id number] [address] [place] [address], [place] [address] Aug, [facility] [address] [id number] [address] [place] [address], [place] [address] Aug, [facility] [address] [id number] [address] [place] [address], [place] [address] Aug, [facility] [address] [id number] [address] [place] [address], [place] [address] Aug, [facility] [address] [id number] [address] [place] [address], [place] [address] Aug, [facility] [address] [id number] [address] [place] [address], [place] [address] Aug, [facility] [address] [id number] [address] [place] [address], [place] [address] Aug, [facility] [address] [id number] [address] [place] [address], [place] [address] Jul, [facility] [address] [id number] [address] [place] [address], [place] [address] Jul, [facility] [address] [id number] [address] [place] [address], [place] [address] Jul, [facility] [address] [id number] [address] [place] [address], [place] [address] Jul, [facility] [address] [id number] [address] [place] [address], [place] [address] Jul, [facility] [address] [id number] [address] [place] [address], [place] [address] Jul, [facility] [address] [id number] [address] [place] [address], [place] [address] Jul, [facility] [address] [id number] [address] [place] [address], [place] [address] Jul, [facility] [address] [id number] [address] [place] [address], [place] [address] Jul, [facility] [address] [id number] [address] [place] [address], [place] [address] Jun, [facility] [address] [id number] [address] [place] [address], [place] [address] Jun, [facility] [address] [id number] [address] [place] [address], [place] [address] Jun, [facility] [address] [id number] [address] [place] [address], [place] [address] Jun, [facility] [address] [id number] [address] [place] [address], [place] [address] Jun, [facility] [address] [id number] [address] [place] [address], [place] [address] Jun, [facility] [address] [id number] [address] [place] [address], [place] [address] May, [facility] [address] [id number] [address] [place] [address] May, [facility] [address] [id number] [address] [place] [address] May, [facility] [address] [id number] [address] [place] [address], [place] [address] May, [facility] [address] [id number] [address] [place] [address], [place] [address] May, [facility] [address] [id number] [address] [place] [address], [place] [address] May, [facility] [address] [id number] [address] [place] [address], [place] [address] Apr, [facility] [address] [id number] [address] [place] [address], [place] [address] Apr, [facility] [address] [id number] [address] [place] [address], [place] [address] Apr, [facility] [address] [id number] [address] [place] [address], [place] [address] Apr, [facility] [address] [id number] [address] [place] [address], [place] [address] Apr, [facility] [address] [id number] [address] [place] [address], [place] [address] Apr, [facility] [address] [id number] [address] [place] [address], [place] [address] Mar, [facility] [address] [id number] [address] [place] [address], [place] [address] Mar, [facility] [address] [id number] [address] [place] [address], [place] [address] Mar, [facility] [address] [id number] [address] [place] [address], [place] [address] Mar, [facility] [address] [id number] [address] [place] [address] Mar, 2013 [facility] [address] [id number] [address] [place] [address], [place] [address] Mar, 2013 [facility] [address] [id number] [address] [place] [address], [place] [address] Mar, 2013 [facility] [address] [id number] [address] [place] [address], [place] [address] Mar, 2013 [facility] [address] [id number] [address] [place] [address], [place] [address] Mar, 2013 [facility] [address] [id number] [address] [place] [address], [place] [address] Mar, 2013 [facility] [address] [id number] [address] [place] [address], [place] [address] Mar, 2013 [facility] [address] [id number] [address] [place] [address], [place] [address] Mar, 2013 [facility] [address] [id number] [address] [place] [address], [place] [address] Mar, 2013 [facility] [address] [id number] [address] [place] [address], [place] [address] Mar, 2013 [facility] [address] [id number] [address] [place] [address], [place] [address] Mar, [facility] [address] [id number] [address] [place] [address], [place] [address] Mar, [facility] [address] [id number] [address] [place] [address], [place] [address] Feb, [facility] [address] [id number] [address] [place] [address], [place] [address] Feb, [facility] [address] [id number] [address] [place] [address], [place] [address] Feb, [facility] [address] [id number] [address] [place] [address], [place] [address] Feb, [facility] [address] [id number] [address] [place] [address], [place] [address] Feb, [facility] [address] [id number] [address] [place] [address], [place] [address] Feb, [facility] [address] [id number] [address] [place] [address], [place] [address] Feb, [facility] [address] [id number] [address] [place] [address], [place] [address] Feb, [facility] [address] [id number] [address] [place] [address], [place] [address] Feb, [facility] [address] [id number] [address] [place] [address], [place] [address] Feb, [facility] [address] [id number] [address] [place] [address], [place] [address] Feb, [facility] [address] [id number] [address] [place] [address], [place] [address] Feb, [facility] [address] [id number] [address] [place] [address], [place] [address] Feb, [facility] [address] [id number] [address] [place] [address], [place] [address] January, [facility] [address] [id number] [address] [place] [address], [place] [address] January, [facility] [address] [id number] [address] [place] [address], [place] [address] January, [facility] [address] [id number] [address] [place] [address], [place] [address] January, [facility] [address] [id number] [address] [place] [address], [place] [address] January, [facility] [address] [id number] [address] [place] [address], [place] [address] January, [facility] [address] [id number] [address] [place] [address], [place] [address] January, [facility] [address] [id number] [facility] [place] [address] January, [facility] [address] [id number] [address] [place] [address], [place] [address] January, [facility] [address] [id number] [address] [place] [address], [place] [address] January, [facility] [address] [id number] [address] [place] [address], [place] [address] January, [facility] [address] [id number] [address] [place] [address], [place] [address] January, [facility] [address] [id number] [address] [place] [address], [place] [address] January, [facility] [address] [id number] [address] [place] [address], [place] [address] January, [facility] [address] [id number] [address] [place] [address], [place] [address] Dec, [facility] [address] [id number] [address] [place] [address], [place] [address] Dec, [facility] [address] [id number] [address] [place] [address], [place] [address] Dec, [facility] [address] [id number] [address] [place] [address], [place] [address] Dec, [facility] [address] [id number] [address] [place] [address], [place] [address] Dec, [facility] [address] [id number] [address] [place] [address], [place] [address] Dec, [facility] [address] [id number] [address] [place] [address], [place] [address] Dec, [facility] [address] [id number] [address] [place] [address], [place] [address] Dec, [facility] [address] [id number] [address] [place] [address], [place] [address] Nov, [facility] [address] [id number] [address] [place] [address], [place] [address] Nov, [facility] [address] [id number] [address] [place] [address], [place] [address] Nov, [facility] [address] [id number] [address] [place] [address], [place] [address] Nov, [facility] [address] [id number] [address] [place] [address], [place] [address] Oct, [facility] [address] [id number] [address] [place] [address], [place] [address] Oct, [facility] [address] [id number] [address] [place] [address], [place] [address] Oct, [facility] [address] [id number] [address] [place] [address], [place] [address] Oct, [facility] [address] [id number] [address] [place] [address], [place] [address] Oct, [facility] [address] [id number] [address] [place] [address], [place] [address] Oct, [facility] [address] [id number] [address] [place] [address], [place] [address] Sep, [facility] [address] [id number] [address] [place] [address], [place] [address] Sep, [facility] [address] [id number] [address] [place] [address], [place] [address] Sep, [facility] [address] [id number] [address] [place] [address], [place] [address] Sep, [facility] [address] [id number] [address] [place] [address], [place] [address] Sep, [facility] [address] [id number] [address] [place] [address], [place] [address] 14 Sep, 2013 [facility] [address] [id number] [address] [place] [address], [place] [address] 14 Sep, 2013 [facility] [address] [id number] [address] [place] [address], [place] [address] Sep, [facility] [address] [id number] [address] [place] [address], [place] [address] Sep, [facility] [address] [id number] [address] [place] [address], [place] [address] Sep, [facility] [address] [id number] [address] [place] [address], [place] [address] Aug, [facility] [address] [id number] [address] [place] [address], [place] [address] Aug, [facility] [address] [id number] [address] [place] [address], [place] [address] Aug, [facility] [address] [id number] [address] [place] [address], [place] [address] Aug, [facility] [address] [id number] [address] [place] [address], [place] [address] Aug, [facility] [address] [id number] [address] [place] [address], [place] [address] Aug, [facility] [address] [id number] [address] [place] [address], [place] [address] Aug, [facility] [address] [id number] [address] [place] [address], [place] [address]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
--- OUTSIDE RECORDS SUMMARY | 2020-03-26 15:23 | XMS REPORT ---
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 Name Role Phone PEMA YOUNGER Unavailable PROBLEMS Type Condition ICD9-CM Code ZGV25-DQ Code Onset Dates Condition S tatus SNOMED Code Problem custodial systemic steroid user Z79.52 Active 53956058407358660 Problem Rheumatoid arthritis involvi ng multiple sites, unspecified rheumatoid factor presence M06.9 Active 08504042 Problem Personality disorder, unspecified F60.9 Active 00500192 Problem Post-traumatic stress disorder, chronic F43.12 Active 90873856 Problem Bipolar disorder, current episode depressed, moderate F31.32 Active 635473387 Problem Anorexia nervosa F50.00 Active 568 [id number] ALLERGIES No Information ENCOUNTERS Encounter Location Date Diagnosis [facility] [address] [facility] [id number] [address] [place] [address] January, [address] [id number] [address] January, [address] [id number] [address] January, [facility] [address] [facility] [id number] [address] [place] [address] January, Bipolar disorder, current ep isode depressed, moderate F31.32 ; Post-traumatic stress disorder, chronic F43.12 and Anorexia nervosa F50.00 [facility] [address] [place] [address] January, retirement resident Z59.3 ; Rheumatoid arthritis involving multiple sites, unspecified rheumatoid factor presence M06.9 ; Post-traumatic stress disorder, chronic F43.12 and Bipolar disorder, current episode depressed, moderate F31.[address] [id number] [address] 05 Jan, 2020 [facility] [address] [id number] [address] [place] [address] 30 Dec, 2019 Bipolar disorder, current ep isode depressed, moderate F31.32 ; Post-traumatic stress disorder, chronic F43.12 and Anorexia nervosa F50.00 [facility] [address] [facility] [id number] [address] [place] [address] 22 Dec, 2019 Bipolar disorder, current ep isode depressed, moderate F31.32 ; Post-traumatic stress disorder, chronic F43.12 and Anorexia nervosa F50.[address] [id number] [address] 16 Dec, 2019 Bipolar disorder, current ep isode depressed, moderate F31.32 [facility] [address] [facility] [id number] [address] [place] [id number] 15 Dec, 2019 [facility] [address] [facility] [id number] [address] [place] [address] 15 Dec, 2019 Bipolar disorder, current ep isode depressed, moderate F31.32 ; Post-traumatic stress disorder, chronic F43.12 and Anorexia nervosa F50.00 [facility] [address] [place] [address] 15 Dec, 2019 [facility] [address] [facility] [id number] [address] [place] [id number] 14 Dec, 2019 [facility] [address] [id number] [address] [place] [address] 09 Dec, 2019 Bipolar disorder, current ep isode depressed, moderate F31.32 ; Post-traumatic stress disorder, chronic F43.12 and Anorexia nervosa F50.00 [facility] [address] [id number] [address] [place] [address] 08 Dec, 2019 Bipolar disorder, current ep isode depressed, moderate F31.32 ; Post-traumatic stress disorder, chronic F43.12 and Anorexia nervosa F50.00 [facility] [address] [id number] [address] [place] [address] Dec, [facility] [address] [facility] [id number] [address] [place] [address] Dec, [facility] [place] [address] [facility] [id number] [place] [address] Nov, [facility] [address] [facility] [id number] [address] [place] [address] Nov, [facility] [address] [facility] [id number] [address] [place] [address] Nov, [facility] [place] [address] [facility] [id number] [place] [address] Oct, Rheumatoid arthritis involving multiple sites, unspecified rheumatoid factor presence M06.9 [facility] [place] [address] [facility] [id number] [place] [address] 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, 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 [facility] [address] [place] [id number] [place] [address] Oct, Bipolar disorder, current episode depressed, moderate F31.32 ; Anorexia nervosa F50.00 ; Rheumatoid arthritis involving multiple sites, unspecified rheumatoid factor presence M06.9 and 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 [facility] [address] [facility] [id number] [address] [place] [address] Sep, [facility] [address] [facility] [id number] [address] [place] [address] Sep, Bipolar disorder, current ep isode depressed, moderate F31.32 ; Post-traumatic stress disorder, chronic F43.12 and Anorexia nervosa F50.00 [facility] [address] [facility] [id number] [address] [place] [address] Sep, [facility] [address] [facility] [id number] [address] [place] [address] Aug, [facility] [address] [facility] [id number] [address] [place] [address] Aug, [facility] [address] [id number] [address] [place] [address] Aug, [place] [address] [id number] [address] [place] [address] Aug, Bipolar disorder, current ep isode depressed, moderate F31.32 ; Post-traumatic stress disorder, chronic F43.12 ; Anorexia nervosa F50.00 and Personality disorder, unspecified F60.9 [place] [address] [facility] [id number] [address] [place] [address] Jul, Bipolar disorder, current ep isode depressed, moderate F31.32 and Anorexia nervosa F50.00 [place] [address] [id number] [address] [place] [address] Jul, [place] [address] [facility] [id number] [address] [place] [address] Jul, [place] [address] [facility] [id number] [address] [place] [address] Jul, [place] [address] [facility] [id number] [address] [place] [address] Jun, Bipolar disorder, current ep isode depressed, moderate F31.32 ; Post-traumatic stress disorder, chronic F43.12 and Eating disorder, unspecified F50.9 [place] [address] [place] [id number] [address] [place] [address] May, [place] [address] [id number] [address] [place] [address] Apr, Bipolar disorder, current ep isode depressed, moderate F31.32 ; Post-traumatic stress disorder, chronic F43.12 and Eating disorder, unspecified F50.9 [place] [address] [facility] [id number] [address] [place] [address] Feb, Bipolar disorder, current ep isode depressed, moderate F31.32 ; Post-traumatic stress disorder, chronic F43.12 and Personality disorder, unspecified F60.9 [place] [address] [place] [id number] [address] [place] [address] 14 Feb, 2016 Bipolar II disorder F31.81 [facility] [address] [id number] [address] [place], [place] [address] Dec, Bipolar disorder, current ep isode depressed, moderate F31.32 ; Post-traumatic stress disorder, chronic F43.12 and Personality disorder, unspecified F60.9 [place] [address] [facility] [id number] [address] [place], [place] [address] Dec, Bipolar disorder, current ep isode depressed, moderate F31.32 ; Post-traumatic stress disorder, chronic F43.12 and Personality disorder, unspecified F60.9 [place] [address] [facility] [id number] [address] [place] [address] Dec, [place] [address] [facility] [id number] [address] [place] [address] Dec, [place] [address] [facility] [id number] [address] [place] [address] Dec, Bipolar disorder, current ep isode depressed, moderate F31.32 ; Post-traumatic stress disorder, chronic F43.12 and Personality disorder, unspecified F60.9 [place] [address] [facility] [id number] [address] [place] [address] Nov, [place] [address] [facility] [id number] [address] [place] [phone] Nov, Bipolar disorder, current ep isode depressed, moderate F31.32 ; Post-traumatic stress disorder, chronic F43.12 and Personality disorder, unspecified F60.9 [place] [id number] [id number] [address] [place] [address] Nov, Bipolar disorder, current ep isode depressed, moderate F31.32 ; Post-traumatic stress disorder, chronic F43.12 and Personality disorder, unspecified F60.9 [place] [id number] [facility] [id number] [address] [place] [address] Oct, [place] [address] [facility] [id number] [address] [place] [address] Oct, Bipolar disorder, current ep isode depressed, moderate F31.32 ; Post-traumatic stress disorder, chronic F43.12 and Personality disorder, unspecified F60.9 [place] [address] [facility] [id number] [address] [place] [address] Oct, Bipolar disorder, current ep isode depressed, moderate F31.32 ; Post-traumatic stress disorder, chronic F43.12 and Personality disorder, unspecified F60.9 [place] [address] [facility] [id number] [address] [place] [address] Aug, Bipolar II disorder F31.81 a nd Post-traumatic stress disorder, unspecified F43.10 [place] [address] [facility] [id number] [address] [place] [address] Aug, Bipolar disorder, current ep isode depressed, moderate F31.32 ; Post-traumatic stress disorder, chronic F43.12 and Personality disorder, unspecified F60.9 [place] [address] [facility] [id number] [address] [place] [address] Jul, Bipolar disorder, unspecifie d 296.80 and Posttraumatic stress disorder 309.81 [place] [address] [facility] [id number] [address] [place] [address] Jul, Post-traumatic stress disord er, chronic F43.12 ; Personality disorder, unspecified F60.9 and Bipolar disorder, current episode depressed, moderate F31.32 [place] [address] [facility] [id number] [address] [place] [address] Jun, Bipolar disorder, unspecifie d 296.80 and Posttraumatic stress disorder 309.81 [place] [address] [facility] [id number] [address] [place] [address] Jun, Bipolar disorder, unspecifie d 296.80 and Posttraumatic stress disorder 309.81 [place] [address] [facility] [id number] [address] [place] [address] Jun, Posttraumatic stress disorde r 309.81 and Bipolar disorder, unspecified 296.80 [facility] [address] [id number] [address] [place] [address] May, Bipolar II disorder 296.89 a nd Post traumatic stress disorder 309.81 [facility] [address] [facility] [id number] [address] [place] [address] May, 2014 Bipolar II disorder 296.89 a nd Post traumatic stress disorder 309.81 [facility] [address] [id number] [address] [place] [address] May, 2014 [facility] [address] [id number] [address] [place] [address] May, 2014 [facility] [address] [facility] [id number] [address] [place] [address] May, 2014 [facility] [address] [facility] [id number] [address] [place] [address] May, 2014 [facility] [address] [facility] [id number] [address] [place] [address] May, Bipolar II disorder 296.89 a nd Post traumatic stress disorder 309.81 [facility] [address] [facility] [id number] [address] [place] [address] May, Bipolar I disorder, most rec ent episode (or current) depressed, moderate 296.52 ; Posttraumatic stress disorder 309.81 and Anxiety state, unspecified 300.00 [facility] [address] [facility] [id number] [address] [place] [address] Apr, Bipolar II disorder 296.89 a nd Post traumatic stress disorder 309.81 [facility] [address] [facility] [id number] [address] [place] [address] Apr, [facility] [address] [facility] [id number] [address] [place] [address] Apr, Bipolar II disorder 296.89 a nd Post traumatic stress disorder 309.81 [facility] [address] [facility] [id number] [address] [place] [address] Apr, Bipolar II disorder 296.89 a nd Post traumatic stress disorder 309.81 [facility] [address] [id number] [address] [place] [address] Mar, Bipolar II disorder 296.89 a nd Post traumatic stress disorder 309.81 [facility] [address] [id number] [address] [place] [address] Mar, [facility] [address] [id number] [address] [place] [address] Mar, Bipolar II disorder 296.89 a nd Post traumatic stress disorder 309.81 [facility] [address] [id number] [address] [place] [address] Mar, Bipolar II disorder 296.89 a nd Post traumatic stress disorder 309.81 [facility] [address] [id number] [address] [place] [address] Mar, Bipolar II disorder 296.89 a nd Post traumatic stress disorder 309.81 [facility] [address] [id number] [address] [place] [address] Mar, [facility] [address] [id number] [address] [place] [address] Mar, Bipolar II disorder 296.89 a nd Post traumatic stress disorder 309.81 [facility] [address] [id number] [address] [place] [address] Feb, Bipolar II disorder 296.89 a nd Post traumatic stress disorder 309.81 [facility] [address] [id number] [address] [place] [address] Feb, [facility] [address] [id number] [address] [place] [address] Feb, Bipolar disorder, unspecifie d 296.80 and Anxiety state, unspecified 300.00 [facility] [address] [id number] [address] [place] [phone] Feb, [facility] [address] [id number] [address] [place] [address], [place] [address] Feb, [facility] [address] [id number] [address] [place] [address], [place] [address] January, [facility] [address] [id number] [address] [place] [address], [place] [address] Dec, [facility] [address] [id number] [address] [place] [address], [place] [address] Dec, [facility] [address] [id number] [address] [place] [address], [place] [address] Nov, [facility] [address] [id number] [address] [place] [address], [place] [address] Nov, [facility] [address] [id number] [address] [place] [address], [place] [address] Nov, [facility] [address] [id number] [address] [place] [address], [place] [address] Nov, [facility] [address] [id number] [address] [place] [address], [place] [address] Nov, [facility] [address] [id number] [address] [place] [address], [place] [address] Nov, [facility] [address] [id number] [address] [place] [address], [place] [address] Nov, [facility] [address] [id number] [address] [place] [address], [place] [address] Nov, [facility] [address] [id number] [address] [place] [address], [place] [address] Nov, [facility] [address] [id number] [address] [place] [address], [place] [address] Oct, [facility] [address] [id number] [address] [place] [address], [place] [address] Oct, [facility] [address] [id number] [address] [place] [address], [place] [address] Oct, [facility] [address] [id number] [address] [place] [address], [place] [address] Oct, [facility] [address] [id number] [address] [place] [address], [place] [address] Oct, [facility] [address] [id number] [address] [place] [address], [place] [address] Oct, [facility] [address] [id number] [address] [place] [address], [place] [address] Oct, [facility] [address] [id number] [address] [place] [address], [place] [address] Oct, [facility] [address] [id number] [address] [place] [address], [place] [address] Sep, [facility] [address] [id number] [address] [place] [address], [place] [address] Sep, [facility] [address] [id number] [address] [place] [address], [place] [address] Sep, [facility] [address] [id number] [address] [place] [address], [place] [address] Sep, [facility] [address] [id number] [address] [place] [address], [place] [address] Sep, [facility] [address] [id number] [address] [place] [address] Sep, [facility] [address] [id number] [address] [place] [address] Sep, [facility] [address] [id number] [address] [place] [address], [place] [address] Sep, [facility] [address] [id number] [address] [place] [address], [place] [address] Sep, [facility] [address] [id number] [address] [place] [address], [place] [address] Sep, [facility] [address] [id number] [address] [place] [address], [place] [address] Aug, [facility] [address] [id number] [address] [place] [address], [place] [address] Aug, [facility] [address] [id number] [address] [place] [address], [place] [address] Aug, [facility] [address] [id number] [address] [place] [address], [place] [address] Aug, [facility] [address] [id number] [address] [place] [address], [place] [address] Aug, [facility] [address] [id number] [address] [place] [address], [place] [address] Aug, [facility] [address] [id number] [address] [place] [address], [place] [address] Aug, [facility] [address] [id number] [address] [place] [address], [place] [address] Aug, [facility] [address] [id number] [address] [place] [address], [place] [address] Jul, [facility] [address] [id number] [address] [place] [address], [place] [address] Jul, [facility] [address] [id number] [address] [place] [address], [place] [address] Jul, [facility] [address] [id number] [address] [place] [address], [place] [address] Jul, [facility] [address] [id number] [address] [place] [address], [place] [address] Jul, [facility] [address] [id number] [address] [place] [address], [place] [address] Jul, [facility] [address] [id number] [address] [place] [address], [place] [address] Jul, [facility] [address] [id number] [address] [place] [address], [place] [address] Jul, [facility] [address] [id number] [address] [place] [address], [place] [address] Jul, [facility] [address] [id number] [address] [place] [address], [place] [address] Jun, [facility] [address] [id number] [address] [place] [address], [place] [address] Jun, [facility] [address] [id number] [address] [place] [address], [place] [address] Jun, [facility] [address] [id number] [address] [place] [address], [place] [address] Jun, [facility] [address] [id number] [address] [place] [address], [place] [address] Jun, [facility] [address] [id number] [address] [place] [address], [place] [address] Jun, [facility] [address] [id number] [address] [place] [address], [place] [address] May, [facility] [address] [id number] [address] [place] [address], [place] [address] May, [facility] [address] [id number] [address] [place] [address], [place] [address] May, [facility] [address] [id number] [address] [place] [address], [place] [address] May, [facility] [address] [id number] [address] [place] [address], [place] [address] May, [facility] [address] [id number] [address] [place] [address], [place] [address] May, [facility] [address] [id number] [address] [place] [address], [place] [address] Apr, [facility] [address] [id number] [address] [place] [address], [place] [address] Apr, [facility] [address] [id number] [address] [place] [address], [place] [address] Apr, [facility] [address] [id number] [facility] [place] [address] Apr, [facility] [address] [id number] [address] [place] [address], [place] [address] Apr, [facility] [address] [id number] [address] [place] [address], [place] [address] Apr, [facility] [address] [id number] [address] [place] [address], [place] [address] Mar, [facility] [address] [id number] [address] [place] [address], [place] [address] Mar, [facility] [address] [id number] [address] [place] [address], [place] [address] Mar, [facility] [address] [id number] [address] [place] [address], [place] [address] Mar, [facility] [address] [id number] [address] [place] [address], [place] [address] Mar, [facility] [address] [id number] [address] [place] [address], [place] [address] Mar, [facility] [address] [id number] [address] [place] [address], [place] [address] Mar, [facility] [address] [id number] [address] [place] [address], [place] [address] Mar, [facility] [address] [id number] [address] [place] [address], [place] [address] Mar, [facility] [address] [id number] [address] [place] [address], [place] [address] Mar, [facility] [address] [id number] [address] [place] [address], [place] [address] Mar, [facility] [facility] [address] [id number] [address] [place] [address], [place] [address] Mar, [facility] [address] [id number] [facility] [place] [address] Mar, [facility] [address] [id number] [address] [place] [address], [place] [address] Mar, [facility] [address] [id number] [address] [place] [address], [place] [address] Mar, [facility] [address] [id number] [address] [place] [address], [place] [address] Mar, [facility] [address] [id number] [address] [place] [address], [place] [address] Feb, [facility] [address] [id number] [address] [place] [address], [place] [address] Feb, [facility] [address] [id number] [address] [place] [address], [place] [address] Feb, [facility] [address] [id number] [address] [place] [address], [place] [address] Feb, [facility] [address] [id number] [address] [place] [address], [place] [address] Feb, [facility] [address] [id number] [address] [place] [address], [place] [address] Feb, [facility] [address] [id number] [address] [place] [address], [place] [address] Feb, [facility] [address] [id number] [address] [place] [address], [place] [address] Feb, [facility] [address] [id number] [address] [place] [address], [place] [address] Feb, [facility] [address] [id number] [address] [place] [address], [place] [address] Feb, [facility] [address] [id number] [address] [place] [address], [place] [address] Feb, [facility] [address] [id number] [address] [place] [address], [place] [address] Feb, [facility] [address] [id number] [address] [place] [address], [place] [address] Feb, [facility] [address] [id number] [address] [place] [address], [place] [address] January, [facility] [address] [id number] [address] [place] [address], [place] [address] January, [facility] [address] [id number] [address] [place] [address], [place] [address] January, [facility] [address] [id number] [address] [place] [address], [place] [address] January, [facility] [address] [id number] [address] [place] [address], [place] [address] January, [facility] [address] [id number] [address] [place] [address], [place] [address] January, [facility] [address] [id number] [address] [place] [address], [place] [address] January, [facility] [address] [id number] [address] [place] [address], [place] [address] January, [facility] [address] [id number] [address] [place] [address], [place] [address] January, [facility] [address] [id number] [address] [place] [address], [place] [address] January, [facility] [address] [id number] [address] [place] [address], [place] [address] January, [facility] [address] [id number] [address] [place] [address], [place] [address] January, [facility] [address] [id number] [address] [place] [address], [place] [address] January, [facility] [address] [id number] [address] [place] [address], [place] [address] January, [facility] [address] [id number] [address] [place] [address], [place] [address] Dec, [facility] [address] [id number] [address] [place] [address], [place] [address] Dec, [facility] [address] [id number] [address] [place] [address], [place] [address] Dec, [facility] [address] [id number] [address] [place] [address], [place] [address] Dec, [facility] [address] [id number] [address] [place] [address], [place] [address] Dec, [facility] [address] [id number] [address] [place] [address], [place] [address] Dec, [facility] [address] [id number] [address] [place] [address], [place] [address] Dec, [facility] [address] [id number] [address] [place] [address], [place] [address] Dec, [facility] [address] [id number] [address] [place] [address], [place] [address] Nov, [facility] [address] [id number] [address] [place] [address], [place] [address] Nov, [facility] [address] [id number] [address] [place] [address], [place] [address] Nov, [facility] [address] [id number] [address] [place] [address], [place] [address] Nov, [facility] [address] [id number] [address] [place] [address], [place] [address] Oct, [facility] [address] [id number] [address] [place] [address], [place] [address] Oct, [facility] [address] [id number] [address] [place] [address], [place] [address] Oct, [facility] [address] [id number] [address] [place] [address], [place] [address] Oct, [facility] [address] [id number] [address] [place] [address], [place] [address] Oct, [facility] [address] [id number] [address] [place] [address], [place] [address] Oct, [facility] [address] [id number] [address] [place] [address], [place] [address] Sep, [facility] [address] [id number] [address] [place] [address], [place] [address] Sep, [facility] [address] [id number] [address] [place] [address], [place] [address] Sep, [facility] [address] [id number] [address] [place] [address], [place] [address] Sep, [facility] [address] [id number] [address] [place] [address], [place] [address] Sep, [facility] [address] [id number] [address] [place] [address], [place] [address] Sep, [facility] [address] [id number] [address] [place] [address], [place] [address] Sep, [facility] [address] [id number] [address] [place] [address], [place] [address] Sep, [facility] [address] [id number] [address] [place] [address], [place] [address] Sep, [facility] [address] [id number] [address] [place] [address], [place] [address] Sep, [facility] [address] [id number] [address] [place] [address], [place] [address] Aug, [facility] [address] [id number] [address] [place] [address], [place] [address] Aug, [facility] [address] [id number] [address] [place] [address], [place] [address] Aug, [facility] [address] [id number] [address] [place] [address] Aug, [facility] [address] [id number] [address] [place] [address], [place] [address] Aug, [facility] [address] [id number] [address] [place] [address] Aug, [facility] [address] [id number] [address] [place] [address], [place] [address] Aug, [facility] [address] [id number] [address] [place] [address] Aug, [facility] [address] [id number] [address] [place] [address], [place] [address] Jul, [facility] [address] [id number] [address] [place] [address] Jul, [facility] [address] [id number] [address] [place] [address] Jul, [facility] [address] [id number] [address] [place] [address], [place] [address] Jul, [facility] [address] [id number] [address]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
--- OUTSIDE RECORDS SUMMARY | 2020-03-26 15:23 | XMS REPORT ---
Author Author Shireen YOUNGER [facility] Address [address] [place] [address] Care Team Providers Care Carburetor Specialist Name Role Phone PEMA YOUNGER Unavailable PROBLEMS Type Condition ICD9-CM Code LIZ45-JU Code Onset Dates Condition S tatus SNOMED Code Problem skilled nursing systemic steroid user Z79.52 Active 40932023056903516 Problem Rheumatoid arthritis involvi ng multiple sites, unspecified rheumatoid factor presence M06.9 Active 11109992 Problem Personality disorder, unspecified F60.9 Active 61826209 Problem Post-traumatic stress disorder, chronic F43.12 Active 94717513 Problem Bipolar disorder, current episode depressed, moderate F31.32 Active 672039344 Problem Anorexia nervosa F50.00 Active 568 01633 ALLERGIES No Information ENCOUNTERS Encounter Location Date Diagnosis [place] [address] [facility] [id number] [address] [place] [phone] January, [address] [id number] [address] [place] [phone] Dec, Bipolar disorder, current ep isode depressed, moderate F31.32 ; Post-traumatic stress disorder, chronic F43.12 and Anorexia nervosa F50.00 [facility] [address] [facility] [id number] [address] [place] [phone] Dec, Bipolar disorder, current ep isode depressed, moderate F31.32 ; Post-traumatic stress disorder, chronic F43.12 and Anorexia nervosa F50.[address] [id number] [address] Dec, Bipolar disorder, current ep isode depressed, moderate F31.32 [place] [address] [facility] [id number] [address] [place] [phone] Dec, [place] [address] [facility] [id number] [address] [place] [phone] 15 Dec, 2019 Bipolar disorder, current ep isode depressed, moderate F31.32 ; Post-traumatic stress disorder, chronic F43.12 and Anorexia nervosa F50.00 [facility] [address] [place] [address] 15 Dec, 2019 [facility] [address] [facility] [id number] [address] [place] [id number] 14 Dec, 2019 [facility] [address] [facility] [id number] [address] [place] [phone] 09 Dec, 2019 Bipolar disorder, current ep isode depressed, moderate F31.32 ; Post-traumatic stress disorder, chronic F43.12 and Anorexia nervosa F50.00 [facility] [address] [facility] [id number] [address] [place] [phone] 08 Dec, 2019 Bipolar disorder, current ep isode depressed, moderate F31.32 ; Post-traumatic stress disorder, chronic F43.12 and Anorexia nervosa F50.00 [facility] [address] [facility] [id number] [address] [place] [phone] 07 Dec, 2019 [place] [address] [facility] [id number] [address] [place] [phone] 04 Dec, 2019 [facility] [id number] [place] [phone] 24 Nov, 2019 [facility] [address] [facility] [id number] [address] [place] [id number] Nov, [facility] [address] [facility] [id number] [address] [place] [phone] Nov, [facility] [address] [place] [id number] [place] [phone] Oct, Rheumatoid arthritis involving multiple sites, unspecified rheumatoid factor presence M06.9 [facility] [id number] [place] [phone] Oct, 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 [facility] [address] [place] [id number] [place] [phone] Oct, Bipolar disorder, current episode depressed, moderate F31.32 ; Anorexia nervosa F50.00 ; Rheumatoid arthritis involving multiple sites, unspecified rheumatoid factor presence M06.9 and 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 [facility] [address] [facility] [id number] [address] [place] [phone] Sep, [facility] [address] [facility] [id number] [address] [place] [phone] Sep, Bipolar disorder, current ep isode depressed, moderate F31.32 ; Post-traumatic stress disorder, chronic F43.12 and Anorexia nervosa F50.00 [place] [address] [facility] [id number] [address] [place] [phone] Sep, [facility] [address] [facility] [id number] [address] [place] [phone] Aug, [facility] [address] [facility] [id number] [address] [place] [phone] Aug, [facility] [address] [facility] [id number] [address] [place] [phone] Aug, [place] [address] [facility] [id number] [address] [place] [phone] Aug, Bipolar disorder, current ep isode depressed, moderate F31.32 ; Post-traumatic stress disorder, chronic F43.12 ; Anorexia nervosa F50.00 and Personality disorder, unspecified F60.9 [facility] [address] [facility] [id number] [address] [place] [phone] Jul, Bipolar disorder, current ep isode depressed, moderate F31.32 and Anorexia nervosa F50.00 [facility] [address] [facility] [id number] [address] [place] [phone] Jul, [facility] [address] [facility] [id number] [address] [place] [phone] Jul, [facility] [address] [id number] [address] [place] [phone] Jul, [facility] [address] [id number] [address] [place] [phone] Jun, Bipolar disorder, current ep isode depressed, moderate F31.32 ; Post-traumatic stress disorder, chronic F43.12 and Eating disorder, unspecified F50.9 [place] [address] [facility] [id number] [address] [place] [phone] May, [place] [address] [facility] [id number] [address] [place] [phone] Apr, Bipolar disorder, current ep isode depressed, moderate F31.32 ; Post-traumatic stress disorder, chronic F43.12 and Eating disorder, unspecified F50.9 [place] [address] [facility] [id number] [address] [place] [phone] Feb, Bipolar disorder, current ep isode depressed, moderate F31.32 ; Post-traumatic stress disorder, chronic F43.12 and Personality disorder, unspecified F60.9 [place] [address] [facility] [id number] [address] [place] [phone] Feb, Bipolar II disorder F31.81 [place] [address] [facility] [id number] [address] [place] [phone] Dec, Bipolar disorder, current ep isode depressed, moderate F31.32 ; Post-traumatic stress disorder, chronic F43.12 and Personality disorder, unspecified F60.9 [place] [address] [facility] [id number] [address] [place] [phone] Dec, Bipolar disorder, current ep isode depressed, moderate F31.32 ; Post-traumatic stress disorder, chronic F43.12 and Personality disorder, unspecified F60.9 [place] [address] [facility] [id number] [address] [place] [phone] Dec, [place] [address] [facility] [id number] [address] [place] [phone] Dec, [place] [address] [place] [id number] [address] [place] [phone] Dec, Bipolar disorder, current ep isode depressed, moderate F31.32 ; Post-traumatic stress disorder, chronic F43.12 and Personality disorder, unspecified F60.9 [place] [address] [id number] [address] [place] [phone] Nov, [place] [address] [id number] [address] [place], [place] [address] Nov, Bipolar disorder, current ep isode depressed, moderate F31.32 ; Post-traumatic stress disorder, chronic F43.12 and Personality disorder, unspecified F60.9 [place] [address] [id number] [address] [place] [phone] Nov, Bipolar disorder, current ep isode depressed, moderate F31.32 ; Post-traumatic stress disorder, chronic F43.12 and Personality disorder, unspecified F60.9 [place] [address] [facility] [id number] [address] [place] [phone] Oct, [place] [address] [id number] [address] [place] [phone] Oct, Bipolar disorder, current ep isode depressed, moderate F31.32 ; Post-traumatic stress disorder, chronic F43.12 and Personality disorder, unspecified F60.9 [place] [address] [id number] [address] [place] [phone] Oct, Bipolar disorder, current ep isode depressed, moderate F31.32 ; Post-traumatic stress disorder, chronic F43.12 and Personality disorder, unspecified F60.9 [place] [address] [id number] [address] [place] [id number] Aug, Bipolar II disorder F31.81 a nd Post-traumatic stress disorder, unspecified F43.10 [place] [address] [id number] [address] [place] [phone] Aug, Bipolar disorder, current ep isode depressed, moderate F31.32 ; Post-traumatic stress disorder, chronic F43.12 and Personality disorder, unspecified F60.9 [facility] [address] [id number] [address] [place] [phone] Jul, Bipolar disorder, unspecifie d 296.80 and Posttraumatic stress disorder 309.81 [facility] [address] [facility] [id number] [address] [place] [phone] Jul, Post-traumatic stress disord er, chronic F43.12 ; Personality disorder, unspecified F60.9 and Bipolar disorder, current episode depressed, moderate F31.32 [facility] [address] [facility] [id number] [address] [place] [phone] Jun, Bipolar disorder, unspecifie d 296.80 and Posttraumatic stress disorder 309.81 [facility] [address] [facility] [id number] [address] [place] [phone] Jun, Bipolar disorder, unspecifie d 296.80 and Posttraumatic stress disorder 309.81 [facility] [address] [facility] [id number] [address] [place] [phone] Jun, Posttraumatic stress disorde r 309.81 and Bipolar disorder, unspecified 296.80 [facility] [address] [facility] [id number] [address] [place] [phone] May, Bipolar II disorder 296.89 a nd Post traumatic stress disorder 309.81 [facility] [address] [facility] [id number] [address] [place] [phone] 18 May, 2015 Bipolar II disorder 296.89 a nd Post traumatic stress disorder 309.81 [facility] [address] [id number] [address] [place] [phone] 17 May, 2015 [facility] [address] [facility] [id number] [address] [place] [phone] 09 May, 2015 [facility] [address] [facility] [id number] [address] [place] [phone] May, [facility] [address] [facility] [id number] [address] [place] [phone] May, [facility] [address] [id number] [address] [place] [phone] May, Bipolar II disorder 296.89 a nd Post traumatic stress disorder 309.81 [facility] [address] [id number] [address] [place] [phone] May, Bipolar I disorder, most rec ent episode (or current) depressed, moderate 296.52 ; Posttraumatic stress disorder 309.81 and Anxiety state, unspecified 300.00 [facility] [address] [id number] [address] [place] [phone] Apr, Bipolar II disorder 296.89 a nd Post traumatic stress disorder 309.81 [facility] [address] [id number] [address] [place] [phone] Apr, [facility] [address] [facility] [id number] [address] [place] [phone] Apr, Bipolar II disorder 296.89 a nd Post traumatic stress disorder 309.81 [facility] [address] [id number] [address] [place] [phone] Apr, Bipolar II disorder 296.89 a nd Post traumatic stress disorder 309.81 [facility] [address] [facility] [id number] [address] [place] [phone] Mar, Bipolar II disorder 296.89 a nd Post traumatic stress disorder 309.81 [facility] [address] [facility] [id number] [address] [place] [phone] Mar, [facility] [address] [id number] [address] [place] [phone] Mar, Bipolar II disorder 296.89 a nd Post traumatic stress disorder 309.81 [facility] [address] [id number] [address] [place] [phone] Mar, Bipolar II disorder 296.89 a nd Post traumatic stress disorder 309.81 [facility] [address] [facility] [id number] [address] [place] [phone] Mar, Bipolar II disorder 296.89 a nd Post traumatic stress disorder 309.81 [facility] [address] [id number] [address] [place] [phone] Mar, [facility] [address] [id number] [address] [place] [phone] Mar, Bipolar II disorder 296.89 a nd Post traumatic stress disorder 309.81 [facility] [address] [id number] [address] [place] [phone] Feb, Bipolar II disorder 296.89 a nd Post traumatic stress disorder 309.81 [facility] [address] [id number] [address] [place] [phone] Feb, [facility] [address] [id number] [address] [place] [phone] Feb, Bipolar disorder, unspecifie d 296.80 and Anxiety state, unspecified 300.00 [facility] [address] [id number] [address] [place] [phone] Feb, [facility] [address] [id number] [address] [place] [phone] Feb, [facility] [address] [id number] [address] [place] [phone] January, [facility] [address] [id number] [address] [place] [phone] Dec, [facility] [address] [id number] [address] [place] [phone] Dec, [facility] [address] [id number] [address] [place] [phone] Nov, [facility] [address] [id number] [address] [place] [phone] Nov, [facility] [address] [id number] [address] [place] [phone] Nov, [facility] [address] [id number] [address] [place] [phone] Nov, [facility] [address] [id number] [address] [place] [address], [place] [address] Nov, [facility] [address] [id number] [address] [place] [address], [place] [address] Nov, [facility] [address] [id number] [address] [place] [address], [place] [address] Nov, [facility] [address] [id number] [address] [place] [phone] Nov, [facility] [address] [id number] [address] [place] [address], [place] [address] Nov, [facility] [address] [id number] [address] [place] [phone] Oct, [facility] [address] [id number] [address] [place] [address], [place] [address] Oct, [facility] [address] [id number] [address] [place] [phone] Oct, [facility] [address] [id number] [address] [place] [address], [place] [address] Oct, [facility] [address] [id number] [address] [place] [phone] Oct, [facility] [address] [id number] [address] [place] [address], [place] [address] Oct, [facility] [address] [id number] [address] [place] [phone] Oct, [facility] [address] [id number] [address] [place] [phone] Oct, [facility] [address] [id number] [address] [place] [phone] Sep, [facility] [address] [id number] [address] [place] [phone] Sep, [facility] [address] [id number] [address] [place] [address], [place] [address] Sep, [facility] [address] [id number] [address] [place] [address], [place] [address] Sep, [facility] [address] [id number] [address] [place] [address], [place] [address] Sep, [facility] [address] [id number] [address] [place] [address], [place] [address] Sep, [facility] [address] [id number] [address] [place] [address], [place] [address] Sep, [facility] [address] [id number] [address] [place] [address], [place] [address] Sep, [facility] [address] [id number] [address] [place] [address], [place] [address] Sep, [facility] [address] [id number] [address] [place] [address], [place] [address] Sep, [facility] [address] [id number] [address] [place] [address], [place] [address] Aug, [facility] [address] [id number] [address] [place] [address], [place] [address] Aug, [facility] [address] [id number] [address] [place] [address], [place] [address] Aug, [facility] [address] [id number] [address] [place] [address], [place] [address] Aug, [facility] [address] [id number] [address] [place] [address], [place] [address] Aug, [facility] [address] [id number] [address] [place] [address], [place] [address] Aug, [facility] [address] [id number] [address] [place] [address], [place] [address] Aug, [facility] [address] [id number] [place] [address] Aug, [facility] [address] [id number] [address] [place] [address], [place] [address] Jul, [facility] [address] [id number] [address] [place] [address], [place] [address] Jul, [facility] [address] [id number] [address] [place] [address], [place] [address] Jul, [facility] [address] [id number] [address] [place] [phone] Jul, [facility] [address] [id number] [address] [place] [address], [place] [address] Jul, [facility] [address] [id number] [address] [place] [phone] Jul, [facility] [address] [id number] [address] [place] [address], [place] [address] Jul, [facility] [address] [id number] [address] [place] [phone] Jul, [facility] [address] [id number] [address] [place] [phone] Jul, [facility] [address] [id number] [address] [place] [phone] Jun, [facility] [address] [id number] [address] [place] [phone] Jun, [facility] [address] [id number] [address] [place] [phone] Jun, [facility] [address] [id number] [address] [place] [address], [place] [address] Jun, [facility] [address] [id number] [address] [place] [id number] Jun, [facility] [address] [id number] [address] [place] [id number] Jun, [facility] [address] [id number] [facility] [place] [address] 25 May, 2013 [facility] [address] [id number] [facility] [place] [address] 25 May, 2013 [facility] [address] [id number] [facility] [place] [address] 16 May, 2014 [facility] [address] [id number] [address] [place] [address], [place] [address] 16 May, 2013 [facility] [address] [id number] [address] [place] [address], [place] [address] May, [facility] [address] [id number] [address] [place] [address], [place] [address] May, [facility] [address] [id number] [address] [place] [address], [place] [address] Apr, [facility] [address] [id number] [address] [place] [address], [place] [address] Apr, [facility] [address] [id number] [address] [place] [address], [place] [address] Apr, [facility] [address] [id number] [address] [place] [address], [place] [address] Apr, [facility] [address] [id number] [address] [place] [address], [place] [address] Apr, [facility] [address] [id number] [address] [place] [address], [place] [address] Apr, [facility] [address] [id number] [address] [place] [address], [place] [address] Mar, [facility] [address] [id number] [address] [place] [address], [place] [address] Mar, [facility] [address] [id number] [address] [place] [address], [place] [address] Mar, [facility] [address] [id number] [address] [place] [address], [place] [address] Mar, [facility] [address] [id number] [address] [place] [address], [place] [address] Mar, 2013 [facility] [address] [id number] [address] [place] [address], [place] [address] Mar, 2013 [facility] [address] [id number] [address] [place] [address], [place] [address] Mar, 2013 [facility] [address] [id number] [address] [place] [address], [place] [address] Mar, 2013 [facility] [address] [id number] [address] [place] [address], [place] [address] Mar, 2013 [facility] [address] [id number] [address] [place] [address], [place] [address] Mar, 2013 [facility] [address] [id number] [address] [place] [address], [place] [address] Mar, 2013 [facility] [address] [id number] [address] [place] [address], [place] [address] Mar, 2013 [facility] [address] [id number] [address] [place] [address], [place] [address] Mar, [facility] [address] [id number] [address] [place] [address], [place] [address] Mar, [facility] [address] [id number] [address] [place] [address], [place] [address] Mar, [facility] [address] [id number] [address] [place] [address], [place] [address] Mar, [facility] [address] [id number] [address] [place] [address], [place] [address] Feb, [facility] [address] [id number] [address] [place] [address], [place] [address] Feb, [facility] [address] [id number] [address] [place] [address], [place] [address] Feb, [facility] [address] [id number] [address] [place] [address], [place] [address] Feb, [facility] [address] [id number] [address] [place] [address], [place] [address] Feb, [facility] [address] [id number] [address] [place] [address], [place] [address] Feb, [facility] [address] [id number] [address] [place] [address], [place] [address] Feb, [facility] [address] [id number] [address] [place] [address], [place] [address] Feb, [facility] [address] [id number] [address] [place] [address], [place] [address] Feb, [facility] [address] [id number] [address] [place] [address], [place] [address] Feb, [facility] [address] [id number] [address] [place] [address], [place] [address] Feb, [facility] [address] [id number] [address] [place] [address], [place] [address] Feb, [facility] [address] [id number] [address] [place] [address], [place] [address] Feb, [facility] [address] [id number] [address] [place] [address], [place] [address] January, [facility] [address] [id number] [address] [place] [address], [place] [address] January, [facility] [address] [id number] [address] [place] [address], [place] [address] January, [facility] [address] [id number] [address] [place] [address], [place] [address] January, [facility] [address] [id number] [address] [place] [address], [place] [address] January, [facility] [address] [id number] [address] [place] [address], [place] [address] January, [facility] [address] [id number] [facility] [place] [address] January, [facility] [address] [id number] [facility] [place] [address] January, [facility] [address] [id number] [address] [place] [address], [place] [address] January, [facility] [address] [id number] [address] [place] [address], [place] [address] January, [facility] [address] [id number] [address] [place] [address], [place] [address] January, [facility] [address] [id number] [address] [place] [address], [place] [address] January, [facility] [address] [id number] [address] [place] [address], [place] [address] January, [facility] [address] [id number] [address] [place] [address], [place] [address] January, [facility] [address] [id number] [address] [place] [address], [place] [address] Dec, [facility] [address] [id number] [address] [place] [address], [place] [address] Dec, [facility] [address] [id number] [address] [place] [address], [place] [address] Dec, [facility] [address] [id number] [address] [place] [address], [place] [address] Dec, [facility] [address] [id number] [address] [place] [address], [place] [address] Dec, [facility] [address] [id number] [address] [place] [address], [place] [address] Dec, [facility] [address] [id number] [address] [place] [address], [place] [address] Dec, [facility] [address] [id number] [address] [place] [address], [place] [address] Dec, [facility] [address] [id number] [facility] [place] [address] Nov, [facility] [address] [id number] [address] [place] [address], [place] [address] Nov, [facility] [address] [id number] [address] [place] [address], [place] [address] Nov, [facility] [address] [id number] [address] [place] [address], [place] [address] Nov, [facility] [address] [id number] [address] [place] [address], [place] [address] Oct, [facility] [address] [id number] [address] [place] [address], [place] [address] Oct, [facility] [address] [id number] [address] [place] [address], [place] [address] Oct, [facility] [address] [id number] [address] [place] [address], [place] [address] Oct, [facility] [address] [id number] [address] [place] [address], [place] [address] Oct, [facility] [address] [id number] [address] [place] [address], [place] [address] Oct, [facility] [address] [id number] [address] [place] [address], [place] [address] Sep, [facility] [address] [id number] [address] [place] [address], [place] [address] Sep, [facility] [address] [id number] [address] [place] [address], [place] [address] Sep, [facility] [address] [id number] [address] [place] [address], [place] [address] Sep, [facility] [address] [id number] [address] [place] [address], [place] [address] Sep, [facility] [address] [id number] [address] [place] [address], [place] [address] 14 Sep, 2013 [facility] [address] [id number] [address] [place] [address], [place] [address] 14 Sep, 2013 [facility] [address] [id number] [address] [place] [address], [place] [address] Sep, [facility] [address] [id number] [address] [place] [address], [place] [address] Sep, [facility] [address] [id number] [address] [place] [address], [place] [address] Sep, [facility] [address] [id number] [address] [place] [address], [place] [address] Aug, [facility] [address] [id number] [address] [place] [address], [place] [address] Aug, [facility] [address] [id number] [address] [place] [address], [place] [address] Aug, [facility] [address] [id number] [address] [place] [address], [place] [address] Aug, [facility] [address] [id number] [address] [place] [address], [place] [address] Aug, [facility] [address] [id number] [address] [place] [address], [place] [address] Aug, [facility] [address] [id number] [address] [place] [address], [place] [address] Aug, [facility] [address] [id number] [address] [place] [address], [place] [address] Aug, [facility] [address] [id number] [address] [place] [address], [place] [address] Jul, [facility] [address] [id number] [address] [place] [address], [place] [address] Jul, [facility] [address] [id number] [address] [place] [address], [place] [address] Jul, [facility] [address] [id number] [address] [place] [address], [place] [address] Jul, [facility] [address] [id number] [address] [place] [address], [place] [address] Jul, [facility] [address] [id number] [address] [place] [address], [place] [address] Jul, [facility] [address] [id number] [address] [place] [address], [place] [address] Jul, [facility] [address] [id number] [address] [place] [address], [place] [address] Jul, [facility] [address] [id number] [address] [place] [address], [place] [address] Jul, [facility] [address] [id number] [address] [place] [address], [place] [address] Jul, [facility] [address] [id number] [address] [place] [address], [place] [address] Jul, [facility] [address] [id number] [address] [place] [address], [place] [address] Jul, [facility] [address] [id number] [address] [place] [address] Jun, [facility] [address] [id number] [address] [place] [address] Jun, [facility] [address] [id number] [address] [place] [address] 29 Jun, 2013 [facility] [address] [id number] [address] [place] [address], [place] [address] Jun, [facility] [address] [id number] [address] [place] [address], [place] [address] Jun, [facility] [address] [id number] [address] [place] [address] 16 Jun, 2013 [facility] [address] [id number]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
--- OUTSIDE RECORDS SUMMARY | 2020-03-26 15:24 | XMS REPORT ---
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 Name Role Phone PEMA YOUNGER Unavailable PROBLEMS Type Condition ICD9-CM Code LFR99-ZR Code Onset Dates Condition S tatus SNOMED Code Problem halfway systemic steroid user Z79.52 Active 02278477745172982 Problem Rheumatoid arthritis involvi ng multiple sites, unspecified rheumatoid factor presence M06.9 Active 32638257 Problem Personality disorder, unspecified F60.9 Active 86592020 Problem Post-traumatic stress disorder, chronic F43.12 Active 44090871 Problem Bipolar disorder, current episode depressed, moderate F31.32 Active 526087668 Problem Anorexia nervosa F50.00 Active 568 13721 ALLERGIES No Information ENCOUNTERS Encounter Location Date Diagnosis [place] [address] [address] [facility] [id number] [address] [place] [address] January, [address] [id number] [address] [place] [address] Dec, Bipolar disorder, current ep isode depressed, moderate F31.32 ; Post-traumatic stress disorder, chronic F43.12 and Anorexia nervosa F50.00 [facility] [place] [address] [facility] [id number] [address] [place] [address] Dec, Bipolar disorder, current ep isode depressed, moderate F31.32 ; Post-traumatic stress disorder, chronic F43.12 and Anorexia nervosa F50.[address] [id number] [address] Dec, Bipolar disorder, current ep isode depressed, moderate F31.32 [place] [address] [address] [facility] [id number] [address] [place] [address] Dec, [place] [id number] [facility] [id number] [address] [place] [phone] 15 Dec, 2019 Bipolar disorder, current ep isode depressed, moderate F31.32 ; Post-traumatic stress disorder, chronic F43.12 and Anorexia nervosa F50.00 [facility] [address] [place] [address] 15 Dec, 2019 [facility] [place] [address] [facility] [id number] [address] [place] [address] 14 Dec, 2019 [facility] [place] [address] [facility] [id number] [address] [place] [phone] 09 Dec, 2019 Bipolar disorder, current ep isode depressed, moderate F31.32 ; Post-traumatic stress disorder, chronic F43.12 and Anorexia nervosa F50.00 [facility] [place] [address] [facility] [id number] [address] [place] [address] 08 Dec, 2019 Bipolar disorder, current ep isode depressed, moderate F31.32 ; Post-traumatic stress disorder, chronic F43.12 and Anorexia nervosa F50.00 [facility] [place] [address] [facility] [id number] [address] [place] [phone] 07 Dec, 2019 [place] [address] [address] [facility] [id number] [address] [place] [address] 04 Dec, 2019 [facility] [id number] [place] [phone] 24 Nov, 2019 [facility] [place] [address] [facility] [id number] [address] [place] [address] Nov, [facility] [place] [address] [facility] [id number] [address] [place] [address] Nov, [facility] [address] [place] [id number] [place] [phone] Oct, Rheumatoid arthritis involving multiple sites, unspecified rheumatoid factor presence M06.9 [facility] [address] [place] [phone] Oct, terminal carman systemic steroid user Z79.52 [facility] [address] [place] [id number] [place] [address] [phone] Oct, Bipolar disorder, current episode depressed, moderate F31.32 ; Anorexia nervosa F50.00 ; Rheumatoid arthritis involving multiple sites, unspecified rheumatoid factor presence M06.9 and terminal carman systemic steroid user Z79.52 [facility] [place] [address] [facility] [id number] [address] [place] [address] Sep, [facility] [place] [address] [facility] [id number] [address] [place] [address] Sep, Bipolar disorder, current ep isode depressed, moderate F31.32 ; Post-traumatic stress disorder, chronic F43.12 and Anorexia nervosa F50.00 [place] [address] [address] [facility] [id number] [address] [place] [address] Sep, [facility] [place] [address] [facility] [id number] [address] [place] [address] Aug, [facility] [place] [address] [facility] [id number] [address] [place] [address] Aug, [facility] [place] [address] [facility] [id number] [address] [place] [address] Aug, [place] [address] [address] [facility] [id number] [address] [place] [address] Aug, Bipolar disorder, current ep isode depressed, moderate F31.32 ; Post-traumatic stress disorder, chronic F43.12 ; Anorexia nervosa F50.00 and Personality disorder, unspecified F60.9 [facility] [place] [address] [facility] [id number] [address] [place] [address] Jul, Bipolar disorder, current ep isode depressed, moderate F31.32 and Anorexia nervosa F50.00 [facility] [place] [address] [facility] [id number] [address] [place] [phone] Jul, [facility] [place] [address] [facility] [id number] [address] [place] [address] Jul, [facility] [place] [address] [id number] [address] [place] [address] Jul, [facility] [place] [address] [id number] [address] [place] [address] Jun, Bipolar disorder, current ep isode depressed, moderate F31.32 ; Post-traumatic stress disorder, chronic F43.12 and Eating disorder, unspecified F50.9 [place] [address] [address] [facility] [id number] [address] [place] [address] May, [place] [address] [address] [facility] [id number] [address] [place] [address] Apr, Bipolar disorder, current ep isode depressed, moderate F31.32 ; Post-traumatic stress disorder, chronic F43.12 and Eating disorder, unspecified F50.9 [place] [address] [address] [facility] [id number] [address] [place] [address] Feb, Bipolar disorder, current ep isode depressed, moderate F31.32 ; Post-traumatic stress disorder, chronic F43.12 and Personality disorder, unspecified F60.9 [place] [address] [address] [facility] [id number] [address] [place] [address] Feb, Bipolar II disorder F31.81 [place] [address] [address] [facility] [id number] [address] [place] [address] Dec, Bipolar disorder, current ep isode depressed, moderate F31.32 ; Post-traumatic stress disorder, chronic F43.12 and Personality disorder, unspecified F60.9 [place] [address] [address] [facility] [id number] [address] [place] [address] Dec, Bipolar disorder, current ep isode depressed, moderate F31.32 ; Post-traumatic stress disorder, chronic F43.12 and Personality disorder, unspecified F60.9 [place] [address] [address] [facility] [id number] [address] [place] [address] Dec, [place] [address] [address] [facility] [id number] [address] [place] [address] Dec, [place] [address] [address] [place] [id number] [address] [place] [address] Dec, Bipolar disorder, current ep isode depressed, moderate F31.32 ; Post-traumatic stress disorder, chronic F43.12 and Personality disorder, unspecified F60.9 [place] [address] [id number] [address] [place] [address] Nov, [place] [address] [id number] [address] [place], [place] [address] Nov, Bipolar disorder, current ep isode depressed, moderate F31.32 ; Post-traumatic stress disorder, chronic F43.12 and Personality disorder, unspecified F60.9 [place] [address] [id number] [address] [place] [address] Nov, Bipolar disorder, current ep isode depressed, moderate F31.32 ; Post-traumatic stress disorder, chronic F43.12 and Personality disorder, unspecified F60.9 [place] [address] [address] [facility] [id number] [address] [place] [address] Oct, [place] [address] [id number] [address] [place] [address] Oct, Bipolar disorder, current ep isode depressed, moderate F31.32 ; Post-traumatic stress disorder, chronic F43.12 and Personality disorder, unspecified F60.9 [place] [address] [id number] [address] [place] [address] Oct, Bipolar disorder, current ep isode depressed, moderate F31.32 ; Post-traumatic stress disorder, chronic F43.12 and Personality disorder, unspecified F60.9 [place] [address] [id number] [address] [place] [address] Aug, Bipolar II disorder F31.81 a nd Post-traumatic stress disorder, unspecified F43.10 [place] [address] [id number] [address] [place] [address] Aug, Bipolar disorder, current ep isode depressed, moderate F31.32 ; Post-traumatic stress disorder, chronic F43.12 and Personality disorder, unspecified F60.9 [facility] [place] [address] [id number] [address] [place] [address] Jul, Bipolar disorder, unspecifie d 296.80 and Posttraumatic stress disorder 309.81 [facility] [place] [address] [facility] [id number] [address] [place] [address] Jul, Post-traumatic stress disord er, chronic F43.12 ; Personality disorder, unspecified F60.9 and Bipolar disorder, current episode depressed, moderate F31.32 [facility] [place] [address] [facility] [id number] [address] [place] [address] Jun, Bipolar disorder, unspecifie d 296.80 and Posttraumatic stress disorder 309.81 [facility] [place] [address] [facility] [id number] [address] [place] [address] Jun, Bipolar disorder, unspecifie d 296.80 and Posttraumatic stress disorder 309.81 [facility] [place] [address] [facility] [id number] [address] [place] [address] Jun, Posttraumatic stress disorde r 309.81 and Bipolar disorder, unspecified 296.80 [facility] [place] [address] [facility] [id number] [address] [place] [address] May, Bipolar II disorder 296.89 a nd Post traumatic stress disorder 309.81 [facility] [place] [address] [facility] [id number] [address] [place] [phone] 18 May, 2015 Bipolar II disorder 296.89 a nd Post traumatic stress disorder 309.81 [facility] [place] [address] [id number] [address] [place] [phone] 17 May, 2015 [facility] [place] [address] [facility] [id number] [address] [place] [address] 09 May, 2015 [facility] [place] [address] [facility] [id number] [address] [place] [address] May, [facility] [place] [address] [facility] [id number] [address] [place] [phone] May, [facility] [place] [address] [id number] [address] [place] [address] May, Bipolar II disorder 296.89 a nd Post traumatic stress disorder 309.81 [facility] [place] [address] [id number] [address] [place] [phone] May, Bipolar I disorder, most rec ent episode (or current) depressed, moderate 296.52 ; Posttraumatic stress disorder 309.81 and Anxiety state, unspecified 300.00 [facility] [place] [address] [id number] [address] [place] [address] Apr, Bipolar II disorder 296.89 a nd Post traumatic stress disorder 309.81 [facility] [place] [address] [id number] [address] [place] [phone] Apr, [facility] [place] [address] [facility] [id number] [address] [place] [address] Apr, Bipolar II disorder 296.89 a nd Post traumatic stress disorder 309.81 [facility] [place] [address] [id number] [address] [place] [address] Apr, Bipolar II disorder 296.89 a nd Post traumatic stress disorder 309.81 [facility] [place] [address] [facility] [id number] [address] [place] [address] Mar, Bipolar II disorder 296.89 a nd Post traumatic stress disorder 309.81 [facility] [place] [address] [facility] [id number] [address] [place] [address] Mar, [facility] [place] [address] [id number] [address] [place] [address] Mar, Bipolar II disorder 296.89 a nd Post traumatic stress disorder 309.81 [facility] [place] [address] [id number] [address] [place] [address] Mar, Bipolar II disorder 296.89 a nd Post traumatic stress disorder 309.81 [facility] [place] [address] [facility] [id number] [address] [place] [address] Mar, Bipolar II disorder 296.89 a nd Post traumatic stress disorder 309.81 [facility] [place] [address] [id number] [address] [place] [address] Mar, [facility] [place] [address] [id number] [address] [place] [address] Mar, Bipolar II disorder 296.89 a nd Post traumatic stress disorder 309.81 [facility] [place] [address] [id number] [address] [place] [phone] Feb, Bipolar II disorder 296.89 a nd Post traumatic stress disorder 309.81 [facility] [place] [address] [id number] [address] [place] [address] Feb, [facility] [place] [address] [id number] [address] [place] [phone] Feb, Bipolar disorder, unspecifie d 296.80 and Anxiety state, unspecified 300.00 [facility] [place] [address] [id number] [address] [place] [address] Feb, [facility] [place] [address] [id number] [address] [place] [address] Feb, [facility] [place] [address] [id number] [address] [place] [address] January, [facility] [place] [address] [id number] [address] [place] [address] Dec, [facility] [place] [address] [id number] [address] [place] [phone] Dec, [facility] [place] [address] [id number] [address] [place] [phone] Nov, [facility] [place] [address] [id number] [address] [place] [address] Nov, [facility] [place] [address] [id number] [address] [place] [phone] Nov, [facility] [place] [address] [id number] [address] [place] [phone] Nov, [facility] [address] [id number] [address] [place] [address], [place] [address] Nov, [facility] [address] [id number] [address] [place] [address], [place] [address] Nov, [facility] [address] [id number] [address] [place] [address], [place] [address] Nov, [facility] [address] [id number] [address] [place] [phone] Nov, [facility] [address] [id number] [address] [place] [address], [place] [address] Nov, [facility] [address] [id number] [address] [place] [phone] Oct, [facility] [address] [id number] [address] [place] [address], [place] [address] Oct, [facility] [address] [id number] [address] [place] [id number] Oct, [facility] [address] [id number] [address] [place] [address], [place] [address] Oct, [facility] [address] [id number] [address] [place] [phone] Oct, [facility] [address] [id number] [address] [place] [address], [place] [address] Oct, [facility] [address] [id number] [address] [place] [phone] Oct, [facility] [address] [id number] [address] [place] [phone] Oct, [facility] [address] [id number] [address] [place] [address] Sep, [facility] [address] [id number] [address] [place] [phone] Sep, [facility] [address] [id number] [address] [place] [address], [place] [address] Sep, [facility] [address] [id number] [address] [place] [address], [place] [address] Sep, [facility] [address] [id number] [address] [place] [address], [place] [address] Sep, [facility] [address] [id number] [address] [place] [address], [place] [address] Sep, [facility] [address] [id number] [address] [place] [address], [place] [address] Sep, [facility] [address] [id number] [address] [place] [address], [place] [address] Sep, [facility] [address] [id number] [address] [place] [address], [place] [address] Sep, [facility] [address] [id number] [address] [place] [address], [place] [address] Sep, [facility] [address] [id number] [address] [place] [address], [place] [address] Aug, [facility] [address] [id number] [address] [place] [address], [place] [address] Aug, [facility] [address] [id number] [address] [place] [address], [place] [address] Aug, [facility] [address] [id number] [address] [place] [address], [place] [address] Aug, [facility] [address] [id number] [address] [place] [address], [place] [address] Aug, [facility] [address] [id number] [address] [place] [address], [place] [address] Aug, [facility] [address] [id number] [address] [place] [address], [place] [address] Aug, [facility] [address] [id number] [address] [address] Aug, [facility] [address] [id number] [address] [place] [address], [place] [address] Jul, [facility] [address] [id number] [address] [place] [address], [place] [address] Jul, [facility] [address] [id number] [address] [place] [address], [place] [address] Jul, [facility] [address] [id number] [address] [place] [id number] Jul, [facility] [address] [id number] [address] [place] [address], [place] [address] Jul, [facility] [address] [id number] [address] [place] [id number] Jul, [facility] [address] [id number] [address] [place] [address], [place] [address] Jul, [facility] [address] [id number] [address] [place] [id number] Jul, [facility] [address] [id number] [address] [place] [id number] Jul, [facility] [address] [id number] [address] [place] [id number] Jun, [facility] [address] [id number] [address] [place] [id number] Jun, [facility] [address] [id number] [address] [place] [id number] Jun, [facility] [address] [id number] [address] [place] [address], [place] [address] Jun, [facility] [address] [id number] [address] [place] [id number] Jun, [facility] [address] [id number] [address] [place] [id number] Jun, [facility] [address] [id number] [facility] [place] [address] 25 May, 2013 [facility] [address] [id number] [facility] [place] [address] 25 May, 2013 [facility] [address] [id number] [facility] [place] [address] 16 May, 2014 [facility] [address] [id number] [address] [place] [address], [place] [address] 16 May, 2013 [facility] [address] [id number] [address] [place] [address], [place] [address] May, [facility] [address] [id number] [address] [place] [address], [place] [address] May, [facility] [address] [id number] [address] [place] [address], [place] [address] Apr, [facility] [address] [id number] [address] [place] [address], [place] [address] Apr, [facility] [address] [id number] [address] [place] [address], [place] [address] Apr, [facility] [address] [id number] [address] [place] [address], [place] [address] Apr, [facility] [address] [id number] [address] [place] [address], [place] [address] Apr, [facility] [address] [id number] [address] [place] [address], [place] [address] Apr, [facility] [address] [id number] [address] [place] [address], [place] [address] Mar, [facility] [address] [id number] [address] [place] [address], [place] [address] Mar, [facility] [address] [id number] [address] [place] [address], [place] [address] Mar, [facility] [address] [id number] [address] [place] [address], [place] [address] Mar, [facility] [address] [id number] [address] [place] [address], [place] [address] Mar, 2013 [facility] [address] [id number] [address] [place] [address], [place] [address] Mar, 2013 [facility] [address] [id number] [address] [place] [address], [place] [address] Mar, 2013 [facility] [address] [id number] [address] [place] [address], [place] [address] Mar, 2013 [facility] [address] [id number] [address] [place] [address], [place] [address] Mar, 2013 [facility] [address] [id number] [address] [place] [address], [place] [address] Mar, 2013 [facility] [address] [id number] [address] [place] [address], [place] [address] Mar, 2013 [facility] [address] [id number] [address] [place] [address], [place] [address] Mar, 2013 [facility] [address] [id number] [address] [place] [address], [place] [address] Mar, [facility] [address] [id number] [address] [place] [address], [place] [address] Mar, [facility] [address] [id number] [address] [place] [address], [place] [address] Mar, [facility] [address] [id number] [address] [place] [address], [place] [address] Mar, [facility] [address] [id number] [address] [place] [address], [place] [address] Feb, [facility] [address] [id number] [address] [place] [address], [place] [address] Feb, [facility] [address] [id number] [address] [place] [address], [place] [address] Feb, [facility] [address] [id number] [address] [place] [address], [place] [address] Feb, [facility] [address] [id number] [address] [place] [address], [place] [address] Feb, [facility] [address] [id number] [address] [place] [address], [place] [address] Feb, [facility] [address] [id number] [address] [place] [address], [place] [address] Feb, [facility] [address] [id number] [address] [place] [address], [place] [address] Feb, [facility] [address] [id number] [address] [place] [address], [place] [address] Feb, [facility] [address] [id number] [address] [place] [address], [place] [address] Feb, [facility] [address] [id number] [address] [place] [address], [place] [address] Feb, [facility] [address] [id number] [address] [place] [address], [place] [address] Feb, [facility] [address] [id number] [address] [place] [address], [place] [address] Feb, [facility] [address] [id number] [address] [place] [address], [place] [address] January, [facility] [address] [id number] [address] [place] [address], [place] [address] January, [facility] [address] [id number] [address] [place] [address], [place] [address] January, [facility] [address] [id number] [address] [place] [address], [place] [address] January, [facility] [address] [id number] [address] [place] [address], [place] [address] January, [facility] [address] [id number] [address] [place] [address], [place] [address] January, [facility] [address] [id number] [facility] [place] [address] January, [facility] [address] [id number] [facility] [place] [address] January, [facility] [address] [id number] [address] [place] [address], [place] [address] January, [facility] [address] [id number] [address] [place] [address], [place] [address] January, [facility] [address] [id number] [address] [place] [address], [place] [address] January, [facility] [address] [id number] [address] [place] [address], [place] [address] January, [facility] [address] [id number] [address] [place] [address], [place] [address] January, [facility] [address] [id number] [address] [place] [address], [place] [address] January, [facility] [address] [id number] [address] [place] [address], [place] [address] Dec, [facility] [address] [id number] [address] [place] [address], [place] [address] Dec, [facility] [address] [id number] [address] [place] [address], [place] [address] Dec, [facility] [address] [id number] [address] [place] [address], [place] [address] Dec, [facility] [address] [id number] [address] [place] [address], [place] [address] Dec, [facility] [address] [id number] [address] [place] [address], [place] [address] Dec, [facility] [address] [id number] [address] [place] [address], [place] [address] Dec, [facility] [address] [id number] [address] [place] [address], [place] [address] Dec, [facility] [address] [id number] [facility] [place] [address] Nov, [facility] [address] [id number] [address] [place] [address], [place] [address] Nov, [facility] [address] [id number] [address] [place] [address], [place] [address] Nov, [facility] [address] [id number] [address] [place] [address], [place] [address] Nov, [facility] [address] [id number] [address] [place] [address], [place] [address] Oct, [facility] [address] [id number] [address] [place] [address], [place] [address] Oct, [facility] [address] [id number] [address] [place] [address], [place] [address] Oct, [facility] [address] [id number] [address] [place] [address], [place] [address] Oct, [facility] [address] [id number] [address] [place] [address], [place] [address] Oct, [facility] [address] [id number] [address] [place] [address], [place] [address] Oct, [facility] [address] [id number] [address] [place] [address], [place] [address] Sep, [facility] [address] [id number] [address] [place] [address], [place] [address] Sep, [facility] [address] [id number] [address] [place] [address], [place] [address] Sep, [facility] [address] [id number] [address] [place] [address], [place] [address] Sep, [facility] [address] [id number] [address] [place] [address], [place] [address] Sep, [facility] [address] [id number] [address] [place] [address], [place] [address] 14 Sep, 2013 [facility] [address] [id number] [address] [place] [address], [place] [address] 14 Sep, 2013 [facility] [address] [id number] [address] [place] [address], [place] [address] Sep, [facility] [address] [id number] [address] [place] [address], [place] [address] Sep, [facility] [address] [id number] [address] [place] [address], [place] [address] Sep, [facility] [address] [id number] [address] [place] [address], [place] [address] Aug, [facility] [address] [id number] [address] [place] [address], [place] [address] Aug, [facility] [address] [id number] [address] [place] [address], [place] [address] Aug, [facility] [address] [id number] [address] [place] [address], [place] [address] Aug, [facility] [address] [id number] [address] [place] [address], [place] [address] Aug, [facility] [address] [id number] [address] [place] [address], [place] [address] Aug, [facility] [address] [id number] [address] [place] [address], [place] [address] Aug, [facility] [address] [id number] [address] [place] [address], [place] [address] Aug, [facility] [address] [id number] [address] [place] [address], [place] [address] Jul, [facility] [address] [id number] [address] [place] [address], [place] [address] Jul, [facility] [address] [id number] [address] [place] [address], [place] [address] Jul, [facility] [address] [id number] [address] [place] [address], [place] [address] Jul, [facility] [address] [id number] [address] [place] [address], [place] [address] Jul, [facility] [address] [id number] [address] [place] [address], [place] [address] Jul, [facility] [address] [id number] [address] [place] [address], [place] [address] Jul, [facility] [address] [id number] [address] [place] [address], [place] [address] Jul, [facility] [address] [id number] [address] [place] [address], [place] [address] Jul, [facility] [address] [id number] [address] [place] [address], [place] [address] Jul, [facility] [address] [id number] [address]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
--- OUTSIDE RECORDS SUMMARY | 2020-03-26 15:24 | XMS REPORT ---
Author Author Shireen YOUNGER Organization [facility] Address [address] [place] [address] Care Team Providers Care Glass Artist Name Role Phone PEMA YOUNGER Unavailable PROBLEMS Type Condition ICD9-CM Code CIY05-PC Code Onset Dates Condition S tatus SNOMED Code Problem detention systemic steroid user Z79.52 Active [id number] Problem Rheumatoid arthritis involvi ng multiple sites, unspecified rheumatoid factor presence M06.9 Active 38618633 Problem Personality disorder, unspecified F60.9 Active 59837479 Problem Post-traumatic stress disorder, chronic F43.12 Active 76006928 Problem Bipolar disorder, current episode depressed, moderate F31.32 Active 190287256 Problem Anorexia nervosa F50.00 Active 568 57120 ALLERGIES No Information ENCOUNTERS Encounter Location Date Diagnosis [place] [address] [facility] [id number] [address] [place] [phone] January, [place] [address] [facility] [id number] [address] [place] [phone] Dec, [facility] [address] [facility] [id number] [address] [place] [address] Dec, Bipolar disorder, current ep isode depressed, moderate F31.32 ; Post-traumatic stress disorder, chronic F43.12 and Anorexia nervosa F50.[address] [place] [id number] [place] [address] Dec, Bipolar disorder, current ep isode depressed, moderate F31.32 [facility] [address] [facility] [id number] [address] [place] [phone] Dec, [facility] [address] [facility] [id number] [address] [place] [address] Dec, Bipolar disorder, current ep isode depressed, moderate F31.32 ; Post-traumatic stress disorder, chronic F43.12 and Anorexia nervosa F50.00 [facility] [address] [place] [address] 15 Dec, 2019 [facility] [address] [id number] [address] [place] [phone] 14 Dec, 2019 [facility] [address] [facility] [id number] [address] [place] [phone] 09 Dec, 2019 Bipolar disorder, current ep isode depressed, moderate F31.32 ; Post-traumatic stress disorder, chronic F43.12 and Anorexia nervosa F50.00 [facility] [address] [facility] [id number] [address] [place] [phone] 08 Dec, 2019 Bipolar disorder, current ep isode depressed, moderate F31.32 ; Post-traumatic stress disorder, chronic F43.12 and Anorexia nervosa F50.00 [facility] [address] [facility] [id number] [address] [place] [phone] 07 Dec, 2019 [facility] [address] [facility] [id number] [address] [place] [phone] 04 Dec, 2019 [facility] [id number] [place] [phone] Nov, [facility] [address] [facility] [id number] [address] [place] [address] Nov, [facility] [address] [facility] [id number] [address] [place] [address] Nov, [facility] [address] [place] [id number] [place] [phone] Oct, Rheumatoid arthritis involving multiple sites, unspecified rheumatoid factor presence M06.9 [facility] [id number] [place] [phone] Oct, 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 [facility] [address] [place] [id number] [place] [phone] Oct, Bipolar disorder, current episode depressed, moderate F31.32 ; Anorexia nervosa F50.00 ; Rheumatoid arthritis involving multiple sites, unspecified rheumatoid factor presence M06.9 and detention systemic steroid user Z79.52 [facility] [address] [id number] [address] [place] [phone] Sep, [facility] [address] [id number] [address] [place] [address] Sep, Bipolar disorder, current ep isode depressed, moderate F31.32 ; Post-traumatic stress disorder, chronic F43.12 and Anorexia nervosa F50.00 [facility] [address] [id number] [address] [place] [phone] Sep, [facility] [address] [id number] [address] [place] [phone] Aug, [facility] [address] [id number] [address] [place] [phone] Aug, [facility] [address] [id number] [address] [place] [address] Aug, [facility] [address] [id number] [address] [place] [phone] Aug, Bipolar disorder, current ep isode depressed, moderate F31.32 ; Post-traumatic stress disorder, chronic F43.12 ; Anorexia nervosa F50.00 and Personality disorder, unspecified F60.9 [facility] [address] [id number] [address] [place] [phone] Jul, Bipolar disorder, current ep isode depressed, moderate F31.32 and Anorexia nervosa F50.00 [facility] [address] [id number] [address] [place] [phone] Jul, [facility] [address] [id number] [address] [place] [address] Jul, [facility] [address] [id number] [address] [place] [address] Jul, [facility] [address] [id number] [address] [place] [address] Jun, Bipolar disorder, current ep isode depressed, moderate F31.32 ; Post-traumatic stress disorder, chronic F43.12 and Eating disorder, unspecified F50.9 [facility] [address] [id number] [address] [place] [phone] May, [facility] [address] [id number] [address] [place] [address] Apr, Bipolar disorder, current ep isode depressed, moderate F31.32 ; Post-traumatic stress disorder, chronic F43.12 and Eating disorder, unspecified F50.9 [place] [address] [id number] [address] [place] [id number] Feb, Bipolar disorder, current ep isode depressed, moderate F31.32 ; Post-traumatic stress disorder, chronic F43.12 and Personality disorder, unspecified F60.9 [place] [address] [id number] [address] [place] [address] Feb, Bipolar II disorder F31.81 [place] [address] [id number] [address] [place] [address] Dec, Bipolar disorder, current ep isode depressed, moderate F31.32 ; Post-traumatic stress disorder, chronic F43.12 and Personality disorder, unspecified F60.9 [place] [address] [id number] [address] [place] [address] Dec, Bipolar disorder, current ep isode depressed, moderate F31.32 ; Post-traumatic stress disorder, chronic F43.12 and Personality disorder, unspecified F60.9 [place] [address] [id number] [address] [place] [phone] Dec, [place] [address] [id number] [address] [place] [phone] Dec, [place] [address] [id number] [address] [place] [phone] Dec, Bipolar disorder, current ep isode depressed, moderate F31.32 ; Post-traumatic stress disorder, chronic F43.12 and Personality disorder, unspecified F60.9 [place] [address] [id number] [address] [place] [address] Nov, [place] [address] [id number] [address] [place] [address] Nov, Bipolar disorder, current ep isode depressed, moderate F31.32 ; Post-traumatic stress disorder, chronic F43.12 and Personality disorder, unspecified F60.9 [place] [address] [id number] [address] [place] [address] Nov, Bipolar disorder, current ep isode depressed, moderate F31.32 ; Post-traumatic stress disorder, chronic F43.12 and Personality disorder, unspecified F60.9 [place] [address] [facility] [id number] [address] [place] [phone] Oct, [place] [address] [id number] [address] [place] [address] Oct, Bipolar disorder, current ep isode depressed, moderate F31.32 ; Post-traumatic stress disorder, chronic F43.12 and Personality disorder, unspecified F60.9 [place] [address] [facility] [id number] [address] [place] [phone] Oct, Bipolar disorder, current ep isode depressed, moderate F31.32 ; Post-traumatic stress disorder, chronic F43.12 and Personality disorder, unspecified F60.9 [place] [address] [id number] [address] [place] [phone] Aug, Bipolar II disorder F31.81 a nd Post-traumatic stress disorder, unspecified F43.10 [place] [address] [id number] [address] [place] [address] Aug, Bipolar disorder, current ep isode depressed, moderate F31.32 ; Post-traumatic stress disorder, chronic F43.12 and Personality disorder, unspecified F60.9 [place] [address] [place] [id number] [address] [place] [address] Jul, Bipolar disorder, unspecifie d 296.80 and Posttraumatic stress disorder 309.81 [facility] [address] [place] [id number] [address] [place] [address] Jul, Post-traumatic stress disord er, chronic F43.12 ; Personality disorder, unspecified F60.9 and Bipolar disorder, current episode depressed, moderate F31.32 [facility] [address] [place] [id number] [address] [place] [address] Jun, Bipolar disorder, unspecifie d 296.80 and Posttraumatic stress disorder 309.81 [facility] [address] [place] [id number] [address] [place] [address] Jun, Bipolar disorder, unspecifie d 296.80 and Posttraumatic stress disorder 309.81 [facility] [address] [place] [id number] [address] [place] [address] Jun, Posttraumatic stress disorde r 309.81 and Bipolar disorder, unspecified 296.80 [facility] [address] [place] [id number] [address] [place] [address] May, Bipolar II disorder 296.89 a nd Post traumatic stress disorder 309.81 [facility] [address] [place] [id number] [address] [place] [address] May, Bipolar II disorder 296.89 a nd Post traumatic stress disorder 309.81 [facility] [address] [place] [id number] [address] [place] [phone] 17 May, 2015 [facility] [address] [place] [id number] [address] [place] [id number] 09 May, 2014 [facility] [address] [place] [id number] [address] [place] [phone] May, 2014 [facility] [address] [place] [id number] [address] [place] [address] May, 2014 [facility] [address] [place] [id number] [address] [place] [address] May, Bipolar II disorder 296.89 a nd Post traumatic stress disorder 309.81 [facility] [address] [id number] [address] [place] [id number] May, Bipolar I disorder, most rec ent episode (or current) depressed, moderate 296.52 ; Posttraumatic stress disorder 309.81 and Anxiety state, unspecified 300.00 [facility] [address] [id number] [address] [place] [address] Apr, Bipolar II disorder 296.89 a nd Post traumatic stress disorder 309.81 [facility] [address] [id number] [address] [place] [phone] Apr, [facility] [address] [id number] [address] [place] [address] Apr, Bipolar II disorder 296.89 a nd Post traumatic stress disorder 309.81 [facility] [address] [id number] [address] [place] [address] Apr, Bipolar II disorder 296.89 a nd Post traumatic stress disorder 309.81 [facility] [address] [id number] [address] [place] [address] Mar, Bipolar II disorder 296.89 a nd Post traumatic stress disorder 309.81 [facility] [address] [id number] [address] [place] [address] Mar, [facility] [address] [id number] [address] [place] [address] Mar, Bipolar II disorder 296.89 a nd Post traumatic stress disorder 309.81 [facility] [address] [id number] [address] [place] [address] Mar, Bipolar II disorder 296.89 a nd Post traumatic stress disorder 309.81 [facility] [address] [id number] [address] [place] [address] Mar, Bipolar II disorder 296.89 a nd Post traumatic stress disorder 309.81 [facility] [address] [id number] [address] [place] [address] Mar, [facility] [address] [id number] [address] [place] [address] Mar, Bipolar II disorder 296.89 a nd Post traumatic stress disorder 309.81 [facility] [address] [id number] [address] [place] [address] Feb, Bipolar II disorder 296.89 a nd Post traumatic stress disorder 309.81 [facility] [address] [id number] [address] [place] [address] Feb, [facility] [address] [id number] [address] [place] [address] Feb, Bipolar disorder, unspecifie d 296.80 and Anxiety state, unspecified 300.00 [facility] [address] [id number] [address] [place] [phone] Feb, [facility] [address] [id number] [address] [place] [phone] Feb, [facility] [address] [id number] [address] [place] [phone] January, [facility] [address] [id number] [address] [place] [address] Dec, [facility] [address] [id number] [address] [place] [phone] Dec, [facility] [address] [id number] [address] [place] [address] Nov, [facility] [address] [id number] [address] [place] [phone] Nov, [facility] [address] [id number] [address] [place] [phone] Nov, [facility] [address] [id number] [address] [place] [phone] Nov, [facility] [address] [id number] [address] [place] [phone] Nov, [facility] [address] [id number] [address] [place] [address], [place] [address] Nov, [facility] [address] [id number] [address] [place] [address], [place] [address] Nov, [facility] [address] [id number] [address] [place] [address], [place] [address] Nov, [facility] [address] [id number] [address] [place] [address], [place] [address] Nov, [facility] [address] [id number] [address] [place] [address], [place] [address] Oct, [facility] [address] [id number] [address] [place] [address], [place] [address] Oct, [facility] [address] [id number] [address] [place] [address], [place] [address] Oct, [facility] [address] [id number] [address] [place] [address], [place] [address] Oct, [facility] [address] [id number] [address] [place] [address], [place] [address] Oct, [facility] [address] [id number] [address] [place] [address], [place] [address] Oct, [facility] [address] [id number] [address] [place] [address], [place] [address] Oct, [facility] [address] [id number] [address] [place] [address], [place] [address] Oct, [facility] [address] [id number] [address] [place] [address], [place] [address] Sep, [facility] [address] [id number] [address] [place] [phone] Sep, [facility] [address] [id number] [address] [place] [phone] Sep, [facility] [address] [id number] [address] [place] [address], [place] [address] Sep, [facility] [address] [id number] [address] [place] [address], [place] [address] Sep, [facility] [address] [id number] [address] [place] [address], [place] [address] Sep, [facility] [address] [id number] [address] [place] [address], [place] [address] Sep, [facility] [address] [id number] [address] [place] [address], [place] [address] Sep, [facility] [address] [id number] [address] [place] [address], [place] [address] Sep, [facility] [address] [id number] [address] [place] [address], [place] [address] Sep, [facility] [address] [id number] [address] [place] [address], [place] [address] Aug, [facility] [address] [id number] [address] [place] [address], [place] [address] Aug, [facility] [address] [id number] [address] [place] [address], [place] [address] Aug, [facility] [address] [id number] [address] [place] [address], [place] [address] Aug, [facility] [address] [id number] [address] [place] [address], [place] [address] Aug, [facility] [address] [id number] [address] [place] [address], [place] [address] Aug, [facility] [address] [id number] [address] [place] [address], [place] [address] Aug, [facility] [address] [id number] [address] [place] [address], [place] [address] Aug, [facility] [address] [id number] [address] [place] [address], [place] [address] Jul, [facility] [address] [id number] [address] [place] [address], [place] [address] Jul, [facility] [address] [id number] [address] [place] [address], [place] [address] Jul, [facility] [address] [id number] [address] [place] [address], [place] [address] Jul, [facility] [address] [id number] [address] [place] [address], [place] [address] Jul, [facility] [address] [id number] [address] [place] [address], [place] [address] Jul, [facility] [address] [id number] [address] [place] [address], [place] [address] Jul, [facility] [address] [id number] [address] [place] [address], [place] [address] Jul, [facility] [address] [id number] [address] [place] [address], [place] [address] Jul, [facility] [address] [id number] [address] [place] [address], [place] [address] Jun, [facility] [address] [id number] [address] [place] [address], [place] [address] Jun, [facility] [address] [id number] [address] [place] [address] Jun, [facility] [address] [id number] [address] [place] [address] Jun, [facility] [address] [id number] [address] [place] [address], [place] [address] Jun, [facility] [address] [id number] [address] [place] [address] Jun, [facility] [address] [id number] [address] [place] [address], [place] [address] May, [facility] [address] [id number] [facility] [place] [address] 25 May, 2013 [facility] [address] [id number] [facility] [place] [address] 16 May, 2014 [facility] [address] [id number] [facility] [place] [address] 16 May, 2014 [facility] [address] [id number] [address] [place] [address], [place] [address] 05 May, 2014 [facility] [address] [id number] [address] [place] [address], [place] [address] May, [facility] [address] [id number] [address] [place] [address], [place] [address] Apr, [facility] [address] [id number] [address] [place] [address], [place] [address] Apr, [facility] [address] [id number] [address] [place] [address], [place] [address] Apr, [facility] [address] [id number] [address] [place] [address], [place] [address] Apr, [facility] [address] [id number] [address] [place] [address], [place] [id number] Apr, [facility] [address] [id number] [address] [place] [address], [place] [address] Apr, [facility] [address] [id number] [address] [place] [address], [place] [id number] Mar, [facility] [address] [id number] [address] [place] [address], [place] [address] Mar, [facility] [address] [id number] [address] [place] [address], [place] [address] Mar, [facility] [address] [id number] [address] [place] [address], [place] [id number] Mar, [facility] [address] [id number] [address] [place] [address], [place] [address] Mar, [facility] [address] [id number] [address] [place] [address], [place] [address] Mar, 2013 [facility] [address] [id number] [address] [place] [address], [place] [address] Mar, 2013 [facility] [address] [id number] [address] [place] [address], [place] [address] Mar, 2013 [facility] [address] [id number] [address] [place] [address], [place] [address] Mar, 2013 [facility] [address] [id number] [address] [place] [address], [place] [address] Mar, 2013 [facility] [address] [id number] [address] [place] [address], [place] [address] Mar, 2013 [facility] [address] [id number] [address] [place] [address], [place] [address] Mar, 2013 [facility] [address] [id number] [address] [place] [address], [place] [address] Mar, 2013 [facility] [address] [id number] [address] [place] [address], [place] [address] Mar, [facility] [address] [id number] [address] [place] [address], [place] [address] Mar, [facility] [address] [id number] [address] [place] [address], [place] [address] Mar, [facility] [address] [id number] [address] [place] [address], [place] [id number] Feb, [facility] [address] [address] [id number] [address] [place] [address], [place] [address] Feb, [facility] [address] [id number] [address] [place] [address], [place] [address] Feb, [facility] [address] [id number] [address] [place] [address], [place] [address] Feb, [facility] [address] [id number] [address] [place] [address], [place] [address] Feb, [facility] [address] [id number] [address] [place] [address], [place] [address] Feb, [facility] [address] [id number] [address] [place] [address], [place] [address] Feb, [facility] [address] [id number] [address] [place] [address], [place] [address] Feb, [facility] [address] [id number] [address] [place] [address], [place] [address] Feb, [facility] [address] [id number] [address] [place] [address], [place] [address] Feb, [facility] [address] [id number] [address] [place] [address], [place] [address] Feb, [facility] [address] [id number] [address] [place] [address], [place] [address] Feb, [facility] [address] [id number] [address] [place] [address], [place] [address] Feb, [facility] [address] [id number] [address] [place] [address], [place] [address] January, [facility] [address] [id number] [address] [place] [address], [place] [address] January, [facility] [address] [id number] [address] [place] [address], [place] [address] January, [facility] [address] [id number] [address] [place] [address], [place] [address] January, [facility] [address] [id number] [address] [place] [address], [place] [address] January, [facility] [address] [id number] [address] [place] [address], [place] [address] January, [facility] [address] [id number] [address] [place] [address], [place] [address] January, [facility] [address] [id number] [address] [place] [address], [place] [address] January, [facility] [address] [id number] [address] [place] [address], [place] [address] January, [facility] [address] [id number] [address] [place] [address], [place] [address] January, [facility] [address] [id number] [address] [place] [address], [place] [address] January, [facility] [address] [id number] [address] [place] [address], [place] [address] January, [facility] [address] [id number] [address] [place] [address], [place] [address] January, [facility] [address] [id number] [address] [place] [address], [place] [address] January, [facility] [address] [id number] [address] [place] [address], [place] [address] Dec, [facility] [address] [id number] [address] [place] [address], [place] [address] Dec, [facility] [address] [id number] [address] [place] [address], [place] [address] Dec, [facility] [address] [id number] [address] [place] [address], [place] [address] Dec, [facility] [address] [id number] [address] [place] [address], [place] [address] Dec, [facility] [address] [id number] [address] [place] [address], [place] [address] Dec, [facility] [address] [id number] [address] [place] [address], [place] [address] Dec, [facility] [address] [id number] [address] [place] [address], [place] [address] Dec, [facility] [address] [id number] [address] [place] [address], [place] [address] Nov, [facility] [address] [id number] [facility] [place] [address] Nov, [facility] [address] [id number] [address] [place] [address], [place] [address] Nov, [facility] [address] [id number] [facility] [place] [address] Nov, [facility] [address] [id number] [address] [place] [address], [place] [address] Oct, [facility] [address] [id number] [address] [place] [address], [place] [address] Oct, [facility] [address] [id number] [address] [place] [address], [place] [address] Oct, [facility] [address] [id number] [address] [place] [address], [place] [address] Oct, [facility] [address] [id number] [address] [place] [address], [place] [address] Oct, [facility] [address] [id number] [address] [place] [address], [place] [address] Oct, [facility] [address] [id number] [address] [place] [address], [place] [address] Sep, [facility] [address] [id number] [address] [place] [address], [place] [address] Sep, [facility] [address] [id number] [address] [place] [address], [place] [address] Sep, [facility] [address] [id number] [address] [place] [address], [place] [address] Sep, [facility] [address] [id number] [address] [place] [address], [place] [address] Sep, [facility] [address] [id number] [address] [place] [address], [place] [address] Sep, [facility] [address] [id number] [address] [place] [address], [place] [address] 14 Sep, 2013 [facility] [address] [id number] [address] [place] [address], [place] [address] Sep, [facility] [address] [id number] [address] [place] [address], [place] [address] Sep, [facility] [address] [id number] [address] [place] [address], [place] [address] Sep, [facility] [address] [id number] [address] [place] [address], [place] [address] Aug, [facility] [address] [id number] [address] [place] [address], [place] [address] Aug, [facility] [address] [id number] [address] [place] [address], [place] [address] Aug, [facility] [address] [id number] [address] [place] [address], [place] [address] Aug, [facility] [address] [id number] [address] [place] [address], [place] [address] Aug, [facility] [address] [id number] [address] [place] [address], [place] [address] Aug, [facility] [address] [id number] [address] [place] [address], [place] [address] Aug, [facility] [address] [id number] [address] [place] [address], [place] [address] Aug, [facility] [address] [id number] [address] [place] [address], [place] [address] Jul, [facility] [address] [id number] [address] [place] [address], [place] [address] Jul, [facility] [address] [id number] [address] [place] [address], [place] [address] Jul, [facility] [address] [id number] [address] [place] [address], [place] [address] Jul, [facility] [address] [id number] [address] [place] [address], [place] [address] Jul, [facility] [address] [id number] [address] [place] [address], [place] [address] Jul, [facility] [address] [id number] [address] [place] [address], [place] [address] Jul, [facility] [address] [id number] [address] [place] [address], [place] [address] Jul, [facility] [address] [id number] [address] [place] [address], [place] [address] Jul, [facility] [address] [id number] [address] [place] [address], [place] [address] Jul, [facility] [address] [id number] [address] [place] [address], [place] [address] Jul, [facility] [address] [id number] [address] [place] [address] Jul, [facility] [address] [id number] [address] [place] [address] Jun, [facility] [address] [id number] [address] [place] [address] Jun, [facility] [address] [id number] [address] [place] [address] 29 Jun, 2013 [facility] [address] [id number] [address] [place] [address] Jun, [facility] [address] [id number] [address] [place] [address] Jun, [facility] [address] [id number] [address] [place] [address] Jun, [facility] [address] [id number] [address] [place] [address] Jun, [facility] [address] [id number] [address] [place] [address] 02 Jun, 2013 [facility] [address] [id number]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
--- OUTSIDE RECORDS SUMMARY | 2020-03-26 15:24 | XMS REPORT ---
Author Author Shireen YOUNGER [facility] Address [address] [place] [address] Care Team Providers Care Workday Manager Name Role Phone PEMA YOUNGER Unavailable PROBLEMS Type Condition ICD9-CM Code DBX40-MB Code Onset Dates Condition S tatus SNOMED Code Problem senior care systemic steroid user Z79.52 Active 14136267639223518 Problem Rheumatoid arthritis involvi ng multiple sites, unspecified rheumatoid factor presence M06.9 Active 67073541 Problem Personality disorder, unspecified F60.9 Active 16277401 Problem Post-traumatic stress disorder, chronic F43.12 Active 12263269 Problem Bipolar disorder, current episode depressed, moderate F31.32 Active 171238935 Problem Anorexia nervosa F50.00 Active 568 [id number] ALLERGIES No Information ENCOUNTERS Encounter Location Date Diagnosis [facility] [address] [facility] [id number] [address] [place] [address] January, [facility] [address] [facility] [id number] [address] [place] [address] Dec, [facility] [address] [facility] [id number] [address] [place] [address] Dec, [id number] [place] [address] Dec, Bipolar disorder, current ep isode depressed, moderate F31.32 [facility] [address] [facility] [id number] [address] [place] [address] Dec, [facility] [address] [facility] [id number] [address] [place] [address] Dec, Bipolar disorder, current ep isode depressed, moderate F31.32 ; Post-traumatic stress disorder, chronic F43.12 and Anorexia nervosa F50.[address] [place] [address] 15 Dec, 2019 [facility] [address] [facility] [id number] [address] [place] [address] 14 Dec, 2019 [facility] [address] [facility] [id number] [address] [place] [address] 09 Dec, 2019 Bipolar disorder, current ep isode depressed, moderate F31.32 ; Post-traumatic stress disorder, chronic F43.12 and Anorexia nervosa F50.00 [facility] [address] [facility] [id number] [address] [place] [address] 08 Dec, 2019 Bipolar disorder, current ep isode depressed, moderate F31.32 ; Post-traumatic stress disorder, chronic F43.12 and Anorexia nervosa F50.00 [facility] [address] [facility] [id number] [address] [place] [address] 07 Dec, 2019 [facility] [address] [facility] [id number] [address] [place] [address] 04 Dec, 2019 [facility] [id number] [place], [place] [id number] Nov, [facility] [address] [facility] [id number] [address] [place] [address] Nov, [facility] [address] [facility] [id number] [address] [place] [address] Nov, [facility] [id number] [id number] Oct, Rheumatoid arthritis involving multiple sites, unspecified rheumatoid factor presence M06.9 [facility] [address] [id number] [address] Oct, 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 [facility] [address] [id number] [address] Oct, Bipolar disorder, current episode depressed, moderate F31.32 ; Anorexia nervosa F50.00 ; Rheumatoid arthritis involving multiple sites, unspecified rheumatoid factor presence M06.9 and senior care systemic steroid user Z79.52 [facility] [address] [id number] [address] [place] [address] Sep, [facility] [address] [id number] [address] [place] [address] Sep, Bipolar disorder, current ep isode depressed, moderate F31.32 ; Post-traumatic stress disorder, chronic F43.12 and Anorexia nervosa F50.00 [facility] [address] [id number] [address] [place] [address] Sep, [facility] [address] [id number] [address] [place] [address] Aug, [facility] [address] [id number] [address] [place] [address] Aug, [facility] [address] [facility] [id number] [address] [place] [address] Aug, [place] [address] [facility] [id number] [address] [place] [address] Aug, Bipolar disorder, current ep isode depressed, moderate F31.32 ; Post-traumatic stress disorder, chronic F43.12 ; Anorexia nervosa F50.00 and Personality disorder, unspecified F60.9 [place] [address] [id number] [address] [place] [address] 08 Jul, 2017 Bipolar disorder, current ep isode depressed, moderate F31.32 and Anorexia nervosa F50.00 [place] [address] [id number] [address] [place] [address] Jul, [facility] [address] [id number] [address] [place] [address] Jul, [facility] [address] [id number] [address] [place] [address] Jul, [facility] [address] [id number] [address] [place] [address] Jun, Bipolar disorder, current ep isode depressed, moderate F31.32 ; Post-traumatic stress disorder, chronic F43.12 and Eating disorder, unspecified F50.9 [place] [address] [facility] [id number] [address] [place] [address] May, [place] [address] [facility] [id number] [address] [place] [address] Apr, Bipolar disorder, current ep isode depressed, moderate F31.32 ; Post-traumatic stress disorder, chronic F43.12 and Eating disorder, unspecified F50.9 [place] [address] [facility] [id number] [address] [place] [address] 14 Feb, 2016 Bipolar disorder, current ep isode depressed, moderate F31.32 ; Post-traumatic stress disorder, chronic F43.12 and Personality disorder, unspecified F60.9 [place] [address] [place] [address] [id number] [place] [address] 14 Feb, 2016 Bipolar II disorder F31.81 [place] [address] [place] [id number] [address] [place] [address] Dec, Bipolar disorder, current ep isode depressed, moderate F31.32 ; Post-traumatic stress disorder, chronic F43.12 and Personality disorder, unspecified F60.9 [place] [address] [place] [id number] [address] [place] [address] Dec, Bipolar disorder, current ep isode depressed, moderate F31.32 ; Post-traumatic stress disorder, chronic F43.12 and Personality disorder, unspecified F60.9 [place] [address] [place] [id number] [address] [place] [address] Dec, [place] [address] [facility] [id number] [address] [place] [address] Dec, [place] [address] [place] [id number] [address] [place] [address] Dec, Bipolar disorder, current ep isode depressed, moderate F31.32 ; Post-traumatic stress disorder, chronic F43.12 and Personality disorder, unspecified F60.9 [place] [address] [id number] [address] [place] [address] Nov, [facility] [address] [id number] [address] [place] [address] Nov, Bipolar disorder, current ep isode depressed, moderate F31.32 ; Post-traumatic stress disorder, chronic F43.12 and Personality disorder, unspecified F60.9 [place] [address] [facility] [id number] [address] [place] [address] Nov, Bipolar disorder, current ep isode depressed, moderate F31.32 ; Post-traumatic stress disorder, chronic F43.12 and Personality disorder, unspecified F60.9 [place] [address] [facility] [id number] [address] [place] [address] Oct, [place] [address] [facility] [id number] [address] [place] [address] Oct, Bipolar disorder, current ep isode depressed, moderate F31.32 ; Post-traumatic stress disorder, chronic F43.12 and Personality disorder, unspecified F60.9 [place] [address] [id number] [address] [place] [address] Oct, Bipolar disorder, current ep isode depressed, moderate F31.32 ; Post-traumatic stress disorder, chronic F43.12 and Personality disorder, unspecified F60.9 [place] [address] [facility] [id number] [address] [place] [address] Aug, Bipolar II disorder F31.81 a nd Post-traumatic stress disorder, unspecified F43.10 [place] [address] [id number] [address] [place] [address] Aug, Bipolar disorder, current ep isode depressed, moderate F31.32 ; Post-traumatic stress disorder, chronic F43.12 and Personality disorder, unspecified F60.9 [place] [address] [facility] [id number] [address] [place] [address] Jul, Bipolar disorder, unspecifie d 296.80 and Posttraumatic stress disorder 309.81 [facility] [address] [id number] [address] [place] [address] Jul, Post-traumatic stress disord er, chronic F43.12 ; Personality disorder, unspecified F60.9 and Bipolar disorder, current episode depressed, moderate F31.32 [facility] [address] [facility] [id number] [address] [place] [address] Jun, Bipolar disorder, unspecifie d 296.80 and Posttraumatic stress disorder 309.81 [facility] [address] [id number] [address] [place] [address] Jun, Bipolar disorder, unspecifie d 296.80 and Posttraumatic stress disorder 309.81 [facility] [address] [facility] [id number] [address] [place] [address] Jun, Posttraumatic stress disorde r 309.81 and Bipolar disorder, unspecified 296.80 [facility] [address] [facility] [id number] [address] [place] [address] 23 May, 2014 Bipolar II disorder 296.89 a nd Post traumatic stress disorder 309.81 [facility] [address] [facility] [id number] [address] [place] [address] 18 May, 2014 Bipolar II disorder 296.89 a nd Post traumatic stress disorder 309.81 [facility] [address] [facility] [id number] [address] [place] [address] 17 Sep, 2014 [facility] [address] [facility] [id number] [address] [place] [address] 09 May, 2014 [facility] [address] [facility] [id number] [address] [place] [address] 03 Sep, 2014 [facility] [address] [facility] [id number] [address] [place] [address] May, 2014 [facility] [address] [facility] [id number] [address] [place] [address] May, 2014 Bipolar II disorder 296.89 a nd Post traumatic stress disorder 309.81 [facility] [address] [facility] [id number] [address] [place] [address] May, Bipolar I disorder, most rec ent episode (or current) depressed, moderate 296.52 ; Posttraumatic stress disorder 309.81 and Anxiety state, unspecified 300.00 [facility] [address] [id number] [address] [place] [address] Apr, Bipolar II disorder 296.89 a nd Post traumatic stress disorder 309.81 [facility] [address] [id number] [address] [place] [address] Apr, [facility] [address] [id number] [address] [place] [address] Apr, Bipolar II disorder 296.89 a nd Post traumatic stress disorder 309.81 [facility] [address] [id number] [address] [place] [address] Apr, Bipolar II disorder 296.89 a nd Post traumatic stress disorder 309.81 [facility] [address] [id number] [address] [place] [address] Mar, Bipolar II disorder 296.89 a nd Post traumatic stress disorder 309.81 [facility] [address] [id number] [address] [place] [address] Mar, [facility] [address] [id number] [address] [place] [address] Mar, Bipolar II disorder 296.89 a nd Post traumatic stress disorder 309.81 [facility] [address] [id number] [address] [place] [address] Mar, Bipolar II disorder 296.89 a nd Post traumatic stress disorder 309.81 [facility] [address] [id number] [address] [place] [address] Mar, Bipolar II disorder 296.89 a nd Post traumatic stress disorder 309.81 [facility] [address] [id number] [address] [place] [address] Mar, [facility] [address] [id number] [address] [place] [address] Mar, Bipolar II disorder 296.89 a nd Post traumatic stress disorder 309.81 [facility] [address] [id number] [address] [place] [address] Feb, Bipolar II disorder 296.89 a nd Post traumatic stress disorder 309.81 [facility] [address] [id number] [address] [place] [address] Feb, [facility] [address] [id number] [address] [place] [address] Feb, Bipolar disorder, unspecifie d 296.80 and Anxiety state, unspecified 300.00 [facility] [address] [id number] [address] [place] [address] Feb, [facility] [address] [id number] [address] [place] [address] Feb, [facility] [address] [id number] [address] [place] [address] January, [facility] [address] [id number] [address] [place] [address] Dec, [facility] [address] [id number] [address] [place] [address] Dec, [facility] [address] [id number] [address] [place] [address] Nov, [facility] [address] [id number] [address] [place] [address] Nov, [facility] [address] [id number] [address] [place] [address] Nov, [facility] [address] [id number] [address] [place] [address] Nov, [facility] [address] [id number] [address] [place] [address] Nov, [facility] [address] [id number] [address] [place] [address] Nov, [facility] [address] [id number] [address] [place] [address], [place] [address] Nov, [facility] [address] [id number] [address] [place] [address], [place] [address] Nov, [facility] [address] [id number] [address] [place] [address], [place] [address] Nov, [facility] [address] [id number] [address] [place] [address], [place] [address] Oct, [facility] [address] [id number] [address] [place] [address], [place] [address] Oct, [facility] [address] [id number] [address] [place] [address], [place] [address] Oct, [facility] [address] [id number] [address] [place] [address], [place] [address] Oct, [facility] [address] [id number] [address] [place] [address], [place] [address] Oct, [facility] [address] [id number] [address] [place] [address], [place] [address] Oct, [facility] [address] [id number] [address] [place] [address], [place] [address] Oct, [facility] [address] [id number] [address] [place] [address], [place] [address] Oct, [facility] [address] [id number] [address] [place] [address] Sep, [facility] [address] [id number] [address] [place] [address] Sep, [facility] [address] [id number] [address] [place] [address] Sep, [facility] [address] [id number] [address] [place] [address] Sep, [facility] [address] [id number] [address] [place] [address], [place] [address] Sep, [facility] [address] [id number] [address] [place] [address], [place] [address] Sep, [facility] [address] [id number] [address] [place] [address], [place] [address] Sep, [facility] [address] [id number] [address] [place] [address], [place] [address] Sep, [facility] [address] [id number] [address] [place] [address], [place] [address] Sep, [facility] [address] [id number] [address] [place] [address], [place] [address] Sep, [facility] [address] [id number] [address] [place] [address], [place] [address] Aug, [facility] [address] [id number] [address] [place] [address], [place] [address] Aug, [facility] [address] [id number] [address] [place] [address], [place] [address] Aug, [facility] [address] [id number] [address] [place] [address], [place] [address] Aug, [facility] [address] [id number] [address] [place] [address], [place] [address] Aug, [facility] [address] [id number] [address] [place] [address], [place] [address] Aug, [facility] [address] [id number] [address] [place] [address], [place] [address] Aug, [facility] [address] [id number] [address] [place] [address], [place] [address] Aug, [facility] [address] [id number] [address] [place] [address], [place] [address] Jul, [facility] [address] [id number] [address] [place] [address], [place] [address] Jul, [facility] [address] [id number] [address] [place] [address], [place] [address] Jul, [facility] [address] [id number] [address] [place] [address], [place] [address] Jul, [facility] [address] [id number] [address] [place] [address], [place] [address] Jul, [facility] [address] [id number] [address] [place] [address], [place] [address] Jul, [facility] [address] [id number] [address] [place] [address], [place] [address] Jul, [facility] [address] [id number] [address] [place] [address], [place] [address] Jul, [facility] [address] [id number] [address] [place] [address], [place] [address] Jul, [facility] [address] [id number] [address] [place] [address] Jun, [facility] [address] [id number] [address] [place] [address], [place] [address] Jun, [facility] [address] [id number] [address] [place] [address] Jun, [facility] [address] [id number] [address] [place] [address] Jun, [facility] [address] [id number] [address] [place] [address] Jun, [facility] [address] [id number] [address] [place] [address], [place] [address] Jun, [facility] [address] [id number] [address] [place] [address] May, [facility] [address] [id number] [address] [place] [address], [place] [address] May, [facility] [address] [id number] [facility] [place] [address] 16 May, 2013 [facility] [address] [id number] [address] [place] [address] 16 May, 2014 [facility] [address] [id number] [facility] [place] [address] May, [facility] [address] [id number] [address] [place] [address], [place] [address] May, [facility] [address] [id number] [address] [place] [address], [place] [address] Apr, [facility] [address] [id number] [address] [place] [address], [place] [address] Apr, [facility] [address] [id number] [address] [place] [address], [place] [address] Apr, [facility] [address] [id number] [address] [place] [address], [place] [address] Apr, [facility] [address] [id number] [address] [place] [address], [place] [address] Apr, [facility] [address] [id number] [address] [place] [address], [place] [address] Apr, [facility] [address] [id number] [address] [place] [address], [place] [address] Mar, [facility] [address] [id number] [address] [place] [address], [place] [address] Mar, [facility] [address] [id number] [address] [place] [address], [place] [address] Mar, [facility] [address] [id number] [address] [place] [address], [place] [address] Mar, [facility] [address] [id number] [address] [place] [address], [place] [address] Mar, [facility] [address] [id number] [address] [place] [address], [place] [address] Mar, [facility] [address] [id number] [address] [place] [address], [place] [address] Mar, 2013 [facility] [address] [id number] [address] [place] [address], [place] [address] Mar, 2013 [facility] [address] [id number] [address] [place] [address], [place] [address] Mar, 2013 [facility] [address] [id number] [address] [place] [address], [place] [address] Mar, 2013 [facility] [address] [id number] [address] [place] [address], [place] [address] Mar, 2013 [facility] [address] [id number] [address] [place] [address], [place] [address] Mar, 2013 [facility] [address] [id number] [address] [place] [address], [place] [address] Mar, 2013 [facility] [address] [id number] [address] [place] [address], [place] [address] Mar, 2013 [facility] [address] [id number] [address] [place] [address], [place] [address] Mar, [facility] [address] [address] [id number] [address] [place] [address], [place] [address] Mar, [facility] [address] [id number] [address] [place] [address], [place] [address] Feb, [facility] [address] [id number] [address] [place] [address], [place] [address] Feb, [facility] [address] [id number] [address] [place] [address], [place] [address] Feb, [facility] [address] [id number] [address] [place] [address], [place] [address] Feb, [facility] [address] [id number] [address] [place] [address], [place] [address] Feb, [facility] [address] [id number] [address] [place] [address], [place] [address] Feb, [facility] [address] [id number] [facility] [place] [address] Feb, [facility] [address] [id number] [address] [place] [address], [place] [address] Feb, [facility] [address] [id number] [address] [place] [address], [place] [address] Feb, [facility] [address] [id number] [address] [place] [address], [place] [address] Feb, [facility] [address] [id number] [address] [place] [address], [place] [address] Feb, [facility] [address] [id number] [address] [place] [address], [place] [address] Feb, [facility] [address] [id number] [address] [place] [address], [place] [address] Feb, [facility] [address] [id number] [address] [place] [address], [place] [address] January, [facility] [address] [id number] [address] [place] [address], [place] [address] January, [facility] [address] [id number] [address] [place] [address], [place] [address] January, [facility] [address] [id number] [address] [place] [address], [place] [address] January, [facility] [address] [id number] [address] [place] [address], [place] [address] January, [facility] [address] [id number] [address] [place] [address], [place] [address] January, [facility] [address] [id number] [address] [place] [address], [place] [address] January, [facility] [address] [id number] [address] [place] [address], [place] [address] January, [facility] [address] [id number] [facility] [place] [address] January, [facility] [address] [id number] [address] [place] [address], [place] [address] January, [facility] [address] [id number] [address] [place] [address], [place] [address] January, [facility] [address] [id number] [address] [place] [address], [place] [address] January, [facility] [address] [id number] [address] [place] [address], [place] [address] January, [facility] [address] [id number] [address] [place] [address], [place] [address] January, [facility] [address] [id number] [address] [place] [address], [place] [address] Dec, [facility] [address] [id number] [address] [place] [address], [place] [address] Dec, [facility] [address] [id number] [address] [place] [address], [place] [address] Dec, [facility] [address] [id number] [address] [place] [address], [place] [address] Dec, [facility] [address] [id number] [address] [place] [address], [place] [address] Dec, [facility] [address] [id number] [address] [place] [address], [place] [address] Dec, [facility] [address] [id number] [address] [place] [address], [place] [address] Dec, [facility] [address] [id number] [address] [place] [address], [place] [address] Dec, [facility] [address] [id number] [address] [place] [address], [place] [address] Nov, [facility] [address] [id number] [address] [place] [address], [place] [address] Nov, [facility] [address] [id number] [address] [place] [address] Nov, [facility] [address] [id number] [address] [place] [address], [place] [address] Nov, [facility] [address] [id number] [address] [place] [address], [place] [address] Oct, [facility] [address] [id number] [address] [place] [address], [place] [address] Oct, [facility] [address] [id number] [address] [place] [address], [place] [address] Oct, [facility] [address] [id number] [address] [place] [address], [place] [address] Oct, [facility] [address] [id number] [address] [place] [address], [place] [address] Oct, [facility] [address] [id number] [address] [place] [address], [place] [address] Oct, [facility] [address] [id number] [address] [place] [address], [place] [address] Sep, [facility] [address] [id number] [address] [place] [address], [place] [address] Sep, [facility] [address] [id number] [address] [place] [address], [place] [address] Sep, [facility] [address] [id number] [address] [place] [address], [place] [address] Sep, [facility] [address] [id number] [address] [place] [address], [place] [address] Sep, [facility] [address] [id number] [address] [place] [address], [place] [address] Sep, [facility] [address] [id number] [address] [place] [address], [place] [address] Sep, [facility] [address] [id number] [address] [place] [address], [place] [address] Sep, [facility] [address] [id number] [address] [place] [address], [place] [address] Sep, [facility] [address] [id number] [address] [place] [address], [place] [address] Sep, [facility] [address] [id number] [address] [place] [address], [place] [address] Aug, [facility] [address] [id number] [address] [place] [address], [place] [address] Aug, [facility] [address] [id number] [address] [place] [address], [place] [address] Aug, [facility] [address] [id number] [address] [place] [address], [place] [address] Aug, [facility] [address] [id number] [address] [place] [address], [place] [address] Aug, [facility] [address] [id number] [address] [place] [address], [place] [address] Aug, [facility] [address] [id number] [address] [place] [address], [place] [address] Aug, [facility] [address] [id number] [address] [place] [address], [place] [address] Aug, [facility] [address] [id number] [address] [place] [address], [place] [address] Jul, [facility] [address] [id number] [address] [place] [address], [place] [address] Jul, [facility] [address] [id number] [address] [place] [address], [place] [address] Jul, [facility] [address] [id number] [address] [place] [address], [place] [address] Jul, [facility] [address] [id number] [address] [place] [address], [place] [address] Jul, [facility] [address] [id number] [address] [place] [address], [place] [address] Jul, [facility] [address] [id number] [address] [place] [address], [place] [address] Jul, [facility] [address] [id number] [address] [place] [address] Jul, [facility] [address] [id number] [address] [place] [address] Jul, [facility] [address] [id number] [address] [place] [address], [place] [address] Jul, [facility] [address] [id number] [address] [place] [address] Jul, [facility] [address] [id number] [address] [place] [address], [place] [address] Jul, [facility] [address] [id number] [address] [place] [address] Jun, [facility] [address] [id number] [address] [place] [address] Jun, [facility] [address] [id number] [address] [place] [address] Jun, [facility] [address] [id number] [address] [place] [address] Jun, [facility] [address] [id number] [address] [place] [address] Jun, [facility] [address] [id number] [address] [place] [address] Jun, [facility] [address] [id number] [address] [place] [address] Jun, [facility] [address] [id number] [address] [place] [address] Jun, [facility] [address] [id number] [address] [place] [address] 25 May, 2013 [facility] [address] [id number] [address] [place] [address], [place] [address] 18 May, 2013 [facility] [address] [id number] [address] [place] [address], [place] [address] 11 May, 2013 [facility]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
--- OUTSIDE RECORDS SUMMARY | 2020-03-26 15:25 | XMS REPORT ---
Author Author Shireen YOUNGER [facility] Address [address] [place] [address] Care Team Providers Care Rehab Nursing Tech Name Role Phone PEMA YOUNGER Unavailable PROBLEMS Type Condition ICD9-CM Code [id number] Code Onset Dates Condition S tatus SNOMED Code Problem [facility] systemic steroid user Z79.52 Active [id number] Problem Rheumatoid arthritis involvi ng multiple sites, unspecified rheumatoid factor presence M06.9 Active 48696037 Problem Personality disorder, unspecified F60.9 Active 33592131 Problem Post-traumatic stress disorder, chronic F43.12 Active 89610509 Problem Bipolar disorder, current episode depressed, moderate F31.32 Active 079143926 Problem Anorexia nervosa F50.00 Active 568 [id number] ALLERGIES No Information ENCOUNTERS Encounter Location Date Diagnosis [facility] [address] [facility] [id number] [address] [place] [address] Dec, Bipolar disorder, current ep isode depressed, moderate F31.32 ; Post-traumatic stress disorder, chronic F43.12 and Anorexia nervosa F50.00 [facility] [address] [facility] [id number] [address] [place] [address] Dec, Bipolar disorder, current ep isode depressed, moderate F31.32 ; Post-traumatic stress disorder, chronic F43.12 and Anorexia nervosa F50.00 [facility] [address] [facility] [id number] [address] [place] [address] Dec, [facility] [address] [facility] [id number] [address] [place] [address] Dec, [facility] [address] [id number] [place] [phone] Nov, [facility] [address] [facility] [id number] [address] [place] [address] Nov, [facility] [address] [facility] [id number] [address] [place] [address] Nov, [facility] [address] [facility] [id number] [place] [address] Oct, Rheumatoid arthritis involving multiple sites, unspecified rheumatoid factor presence M06.9 [facility] [address] [facility] [id number] [place] [address] Oct, [facility] systemic steroid user Z79.52 [facility] [address] [facility] [id number] [place] [address] Oct, Bipolar disorder, current episode depressed, moderate F31.32 ; Anorexia nervosa F50.00 ; Rheumatoid arthritis involving multiple sites, unspecified rheumatoid factor presence M06.9 and 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 [facility] [address] [facility] [id number] [address] [place] [address] Sep, [facility] [address] [facility] [id number] [address] [place] [address] Sep, Bipolar disorder, current ep isode depressed, moderate F31.32 ; Post-traumatic stress disorder, chronic F43.12 and Anorexia nervosa F50.00 [facility] [address] [facility] [id number] [address] [place] [address] Sep, [facility] [address] [facility] [id number] [address] [place] [address] Aug, [facility] [address] [facility] [id number] [address] [place] [address] Aug, [facility] [address] [facility] [id number] [address] [place] [address] Aug, [facility] [address] [facility] [id number] [address] [place] [address] Aug, Bipolar disorder, current ep isode depressed, moderate F31.32 ; Post-traumatic stress disorder, chronic F43.12 ; Anorexia nervosa F50.00 and Personality disorder, unspecified F60.9 [facility] [address] [id number] [address] [place] [address] Jul, Bipolar disorder, current ep isode depressed, moderate F31.32 and Anorexia nervosa F50.00 [facility] [address] [id number] [address] [place] [address] Jul, [facility] [address] [id number] [address] [place] [address] Jul, [facility] [address] [id number] [address] [place] [address] Jul, [place] [address] [id number] [address] [place] [address] Jun, Bipolar disorder, current ep isode depressed, moderate F31.32 ; Post-traumatic stress disorder, chronic F43.12 and Eating disorder, unspecified F50.9 [place] [address] [id number] [address] [place] [address] May, [place] [address] [id number] [address] [place] [address] Apr, Bipolar disorder, current ep isode depressed, moderate F31.32 ; Post-traumatic stress disorder, chronic F43.12 and Eating disorder, unspecified F50.9 [place] [address] [id number] [address] [place] [address] Feb, Bipolar disorder, current ep isode depressed, moderate F31.32 ; Post-traumatic stress disorder, chronic F43.12 and Personality disorder, unspecified F60.9 [place] [address] [id number] [address] [place] [address] Feb, Bipolar II disorder F31.81 [place] [address] [id number] [address] [place] [address] Dec, Bipolar disorder, current ep isode depressed, moderate F31.32 ; Post-traumatic stress disorder, chronic F43.12 and Personality disorder, unspecified F60.9 [facility] [address] [id number] [address] [place] [address] Dec, Bipolar disorder, current ep isode depressed, moderate F31.32 ; Post-traumatic stress disorder, chronic F43.12 and Personality disorder, unspecified F60.9 [facility] [address] [id number] [address] [place] [address] Dec, [facility] [address] [id number] [address] [place] [address] Dec, [facility] [address] [id number] [address] [place] [address] Dec, Bipolar disorder, current ep isode depressed, moderate F31.32 ; Post-traumatic stress disorder, chronic F43.12 and Personality disorder, unspecified F60.9 [place] [id number] [id number] [address] [place] [address] Nov, [place] [address] [id number] [address] [place] [address] Nov, Bipolar disorder, current ep isode depressed, moderate F31.32 ; Post-traumatic stress disorder, chronic F43.12 and Personality disorder, unspecified F60.9 [place] [address] [facility] [id number] [address] [place] [address] Nov, Bipolar disorder, current ep isode depressed, moderate F31.32 ; Post-traumatic stress disorder, chronic F43.12 and Personality disorder, unspecified F60.9 [place] [address] [id number] [address] [place] [address] Oct, [facility] [address] [id number] [address] [place] [address] Oct, Bipolar disorder, current ep isode depressed, moderate F31.32 ; Post-traumatic stress disorder, chronic F43.12 and Personality disorder, unspecified F60.9 [place] [id number] [facility] [id number] [address] [place] [address] Oct, Bipolar disorder, current ep isode depressed, moderate F31.32 ; Post-traumatic stress disorder, chronic F43.12 and Personality disorder, unspecified F60.9 [place] [address] [place] [id number] [address] [place] [address] Aug, Bipolar II disorder F31.81 a nd Post-traumatic stress disorder, unspecified F43.10 [place] [address] [place] [id number] [place] [address] Aug, Bipolar disorder, current ep isode depressed, moderate F31.32 ; Post-traumatic stress disorder, chronic F43.12 and Personality disorder, unspecified F60.9 [place] [address] [place] [id number] [place] [address] Jul, Bipolar disorder, unspecifie d 296.80 and Posttraumatic stress disorder 309.81 [place] [address] [address] Jul, Post-traumatic stress disord er, chronic F43.12 ; Personality disorder, unspecified F60.9 and Bipolar disorder, current episode depressed, moderate F31.32 [place] [address] [place] [id number] [address] [place] [address] Jun, Bipolar disorder, unspecifie d 296.80 and Posttraumatic stress disorder 309.81 [place] [address] [place] [id number] [address] [place] [address] Jun, Bipolar disorder, unspecifie d 296.80 and Posttraumatic stress disorder 309.81 [place] [address] [place] [id number] [address] [place] [address] Jun, Posttraumatic stress disorde r 309.81 and Bipolar disorder, unspecified 296.80 [place] [address] [place] [id number] [address] [place] [address] May, Bipolar II disorder 296.89 a nd Post traumatic stress disorder 309.81 [place] [address] [place] [id number] [address] [place] [address] May, Bipolar II disorder 296.89 a nd Post traumatic stress disorder 309.81 [facility] [address] [id number] [address] [place] [address] May, 2014 [facility] [address] [id number] [address] [place] [address] May, 2014 [facility] [address] [id number] [address] [place] [address] May, 2014 [facility] [address] [id number] [address] [place] [address] May, 2014 [facility] [address] [id number] [address] [place] [address] May, Bipolar II disorder 296.89 a nd Post traumatic stress disorder 309.81 [facility] [address] [id number] [address] [place] [address] May, Bipolar I disorder, most rec ent episode (or current) depressed, moderate 296.52 ; Posttraumatic stress disorder 309.81 and Anxiety state, unspecified 300.00 [facility] [address] [id number] [address] [place] [address] Apr, Bipolar II disorder 296.89 a nd Post traumatic stress disorder 309.81 [facility] [address] [id number] [address] [place] [address] Apr, [facility] [address] [id number] [address] [place] [address] Apr, Bipolar II disorder 296.89 a nd Post traumatic stress disorder 309.81 [facility] [address] [id number] [address] [place] [address] Apr, Bipolar II disorder 296.89 a nd Post traumatic stress disorder 309.81 [facility] [address] [id number] [address] [place] [address] Mar, Bipolar II disorder 296.89 a nd Post traumatic stress disorder 309.81 [facility] [address] [id number] [address] [place] [address] Mar, [facility] [address] [id number] [address] [place] [address] Mar, Bipolar II disorder 296.89 a nd Post traumatic stress disorder 309.81 [facility] [address] [id number] [address] [place] [address] Mar, Bipolar II disorder 296.89 a nd Post traumatic stress disorder 309.81 [facility] [address] [id number] [address] [place] [address] Mar, Bipolar II disorder 296.89 a nd Post traumatic stress disorder 309.81 [facility] [address] [id number] [address] [place] [address] Mar, [facility] [address] [id number] [address] [place] [address] Mar, Bipolar II disorder 296.89 a nd Post traumatic stress disorder 309.81 [facility] [address] [id number] [address] [place] [address] Feb, Bipolar II disorder 296.89 a nd Post traumatic stress disorder 309.81 [facility] [address] [id number] [address] [place] [address] Feb, [facility] [address] [id number] [address] [place] [address] Feb, Bipolar disorder, unspecifie d 296.80 and Anxiety state, unspecified 300.00 [facility] [address] [id number] [address] [place] [phone] Feb, [facility] [address] [id number] [address] [place] [phone] Feb, [facility] [address] [facility] [id number] [address] [place] [phone] January, [facility] [address] [facility] [id number] [address] [place] [phone] Dec, [facility] [address] [id number] [address] [place] [address], [place] [address] 13 Dec, 2014 [facility] [address] [id number] [address] [place] [address], [place] [address] Nov, [facility] [address] [id number] [address] [place] [address], [place] [address] Nov, [facility] [address] [id number] [address] [place] [address], [place] [address] Nov, [facility] [address] [id number] [address] [place] [address], [place] [address] Nov, [facility] [address] [id number] [address] [place] [address], [place] [address] Nov, [facility] [address] [id number] [address] [place] [address], [place] [address] Nov, [facility] [address] [id number] [address] [place] [address], [place] [address] Nov, [facility] [address] [id number] [address] [place] [address], [place] [address] Nov, [facility] [address] [id number] [address] [place] [address], [place] [address] Nov, [facility] [address] [id number] [address] [place] [address], [place] [address] Oct, [facility] [address] [id number] [address] [place] [address], [place] [address] Oct, [facility] [address] [id number] [address] [place] [address], [place] [address] Oct, [facility] [address] [id number] [address] [place] [address], [place] [address] Oct, [facility] [address] [id number] [address] [place] [address], [place] [address] Oct, [facility] [address] [id number] [address] [place] [address], [place] [address] Oct, [facility] [address] [id number] [address] [place] [address], [place] [address] Oct, [facility] [address] [id number] [address] [place] [address], [place] [address] Oct, [facility] [address] [id number] [address] [place] [address], [place] [address] Sep, [facility] [address] [id number] [address] [place] [address], [place] [address] Sep, [facility] [address] [id number] [address] [place] [address], [place] [address] Sep, [facility] [address] [id number] [address] [place] [address], [place] [address] Sep, [facility] [address] [id number] [address] [place] [address], [place] [address] Sep, [facility] [address] [id number] [address] [place] [address], [place] [address] Sep, [facility] [address] [id number] [address] [place] [address], [place] [address] Sep, [facility] [address] [id number] [address] [place] [address], [place] [address] Sep, [facility] [address] [id number] [address] [place] [address], [place] [address] Sep, [facility] [address] [id number] [address] [place] [address], [place] [address] Sep, [facility] [address] [id number] [address] [place] [address], [place] [address] Aug, [facility] [address] [id number] [address] [place] [address], [place] [address] Aug, [facility] [address] [id number] [address] [place] [address], [place] [address] Aug, [facility] [address] [id number] [address] [place] [address], [place] [address] Aug, [facility] [address] [id number] [address] [place] [address], [place] [address] Aug, [facility] [address] [id number] [address] [place] [address], [place] [address] Aug, [facility] [address] [id number] [address] [place] [address], [place] [address] Aug, [facility] [address] [id number] [address] [place] [address], [place] [address] Aug, [facility] [address] [id number] [address] [place] [address], [place] [address] Jul, [facility] [address] [id number] [address] [place] [address], [place] [address] Jul, [facility] [address] [id number] [address] [place] [address], [place] [address] Jul, [facility] [address] [id number] [address] [place] [address], [place] [address] Jul, [facility] [address] [id number] [address] [place] [address], [place] [address] Jul, [facility] [address] [id number] [address] [place] [address], [place] [address] Jul, [facility] [address] [id number] [address] [place] [address], [place] [address] Jul, [facility] [address] [id number] [address] [place] [address], [place] [address] Jul, [facility] [address] [id number] [address] [place] [address], [place] [address] Jul, [facility] [address] [id number] [address] [place] [address], [place] [address] Jun, [facility] [address] [id number] [address] [place] [address], [place] [address] Jun, [facility] [address] [id number] [address] [place] [address], [place] [address] Jun, [facility] [address] [id number] [address] [place] [address], [place] [address] Jun, [facility] [address] [id number] [address] [place] [address], [place] [address] Jun, [facility] [address] [id number] [address] [place] [address], [place] [address] Jun, [facility] [address] [id number] [address] [place] [address], [place] [address] May, [facility] [address] [id number] [address] [place] [address], [place] [address] May, [facility] [address] [id number] [address] [place] [address], [place] [address] May, [facility] [address] [id number] [address] [place] [address], [place] [address] 16 May, 2014 [facility] [address] [id number] [address] [place] [address], [place] [address] May, [facility] [address] [id number] [address] [place] [address], [place] [address] May, [facility] [address] [id number] [address] [place] [address], [place] [address] Apr, [facility] [address] [id number] [address] [place] [address], [place] [address] Apr, [facility] [address] [id number] [address] [place] [address], [place] [address] Apr, [facility] [address] [id number] [address] [place] [address], [place] [address] Apr, [facility] [address] [id number] [address] [place] [address], [place] [address] Apr, [facility] [address] [id number] [address] [place] [address], [place] [address] Apr, [facility] [address] [id number] [facility] [place] [address] Mar, 2013 [facility] [address] [id number] [address] [place] [address], [place] [address] Mar, 2013 [facility] [address] [id number] [address] [place] [address], [place] [address] Mar, 2013 [facility] [address] [id number] [address] [place] [address], [place] [address] Mar, 2013 [facility] [address] [id number] [address] [place] [address], [place] [address] Mar, [facility] [address] [id number] [address] [place] [address], [place] [address] Mar, [facility] [address] [id number] [address] [place] [address], [place] [address] Mar, [facility] [address] [id number] [address] [place] [address], [place] [address] Mar, [facility] [address] [id number] [address] [place] [address], [place] [address] Mar, [facility] [address] [id number] [address] [place] [address], [place] [address] Mar, [facility] [address] [id number] [address] [place] [address], [place] [address] Mar, 2013 [facility] [address] [id number] [address] [place] [address], [place] [address] Mar, [facility] [address] [id number] [address] [place] [address], [place] [address] Mar, [facility] [address] [id number] [address] [place] [address], [place] [address] Mar, [facility] [address] [id number] [address] [place] [address], [place] [address] Mar, 2013 [facility] [address] [id number] [address] [place] [address], [place] [address] Mar, [facility] [address] [id number] [address] [place] [address], [place] [address] Feb, [facility] [address] [id number] [address] [place] [address], [place] [address] Feb, [facility] [address] [id number] [address] [place] [address], [place] [address] Feb, [facility] [address] [id number] [address] [place] [address], [place] [address] Feb, [facility] [address] [id number] [address] [place] [address], [place] [address] Feb, [facility] [address] [id number] [address] [place] [address], [place] [address] Feb, [facility] [address] [id number] [address] [place] [address], [place] [address] Feb, [facility] [address] [address] [id number] [address] [place] [address], [place] [address] Feb, [facility] [address] [id number] [address] [place] [address], [place] [address] Feb, [facility] [address] [id number] [address] [place] [address], [place] [address] Feb, [facility] [address] [id number] [address] [place] [address], [place] [address] Feb, [facility] [address] [id number] [address] [place] [address], [place] [address] Feb, [facility] [address] [id number] [address] [place] [address], [place] [address] Feb, [facility] [address] [id number] [address] [place] [address], [place] [address] January, [facility] [address] [id number] [address] [place] [address], [place] [address] January, [facility] [address] [id number] [facility] [place] [address] January, [facility] [address] [id number] [address] [place] [address], [place] [address] January, [facility] [address] [id number] [address] [place] [address], [place] [address] January, [facility] [address] [id number] [address] [place] [address], [place] [address] January, [facility] [address] [id number] [address] [place] [address], [place] [address] January, [facility] [address] [id number] [address] [place] [address], [place] [address] January, [facility] [address] [id number] [address] [place] [address], [place] [address] January, [facility] [address] [id number] [address] [place] [address], [place] [address] January, [facility] [address] [id number] [address] [place] [address], [place] [address] January, [facility] [address] [id number] [address] [place] [address], [place] [address] January, [facility] [address] [id number] [address] [place] [address], [place] [address] January, [facility] [address] [id number] [address] [place] [address], [place] [address] January, [facility] [address] [id number] [address] [place] [address], [place] [address] Dec, [facility] [address] [id number] [address] [place] [address], [place] [address] Dec, [facility] [address] [id number] [address] [place] [address], [place] [address] Dec, [facility] [address] [id number] [address] [place] [address], [place] [address] 22 Dec, 2013 [facility] [address] [id number] [address] [place] [address], [place] [address] Dec, [facility] [address] [id number] [address] [place] [address], [place] [address] Dec, [facility] [address] [id number] [address] [place] [address], [place] [address] Dec, [facility] [address] [id number] [address] [place] [address], [place] [address] Dec, [facility] [address] [id number] [address] [place] [address], [place] [address] Nov, [facility] [address] [id number] [address] [place] [address], [place] [address] Nov, [facility] [address] [id number] [address] [place] [address], [place] [address] Nov, [facility] [address] [id number] [address] [place] [address], [place] [address] Nov, [facility] [address] [id number] [address] [place] [address], [place] [address] Oct, [facility] [address] [id number] [address] [place] [address], [place] [address] Oct, [facility] [address] [id number] [address] [place] [address], [place] [address] Oct, [facility] [address] [id number] [address] [place] [address], [place] [address] Oct, [facility] [address] [id number] [address] [place] [address], [place] [address] Oct, [facility] [address] [id number] [address] [place] [address], [place] [address] Oct, [facility] [address] [id number] [address] [place] [address], [place] [address] Sep, [facility] [address] [id number] [address] [place] [address], [place] [address] Sep, [facility] [address] [id number] [address] [place] [address], [place] [address] Sep, [facility] [address] [id number] [address] [place] [address], [place] [address] Sep, [facility] [address] [id number] [address] [place] [address], [place] [address] Sep, [facility] [address] [id number] [address] [place] [address], [place] [address] Sep, [facility] [address] [id number] [address] [place] [address], [place] [address] Sep, [facility] [address] [id number] [address] [place] [address], [place] [address] Sep, [facility] [address] [id number] [address] [place] [address], [place] [address] Sep, [facility] [address] [id number] [address] [place] [address], [place] [address] Sep, [facility] [address] [id number] [address] [place] [address], [place] [address] Aug, [facility] [address] [id number] [address] [place] [address], [place] [address] Aug, [facility] [address] [id number] [address] [place] [address], [place] [address] Aug, [facility] [address] [id number] [address] [place] [address], [place] [address] Aug, [facility] [address] [id number] [address] [place] [address], [place] [address] Aug, [facility] [address] [id number] [address] [place] [address], [place] [address] Aug, [facility] [address] [id number] [address] [place] [address] Aug, [facility] [address] [id number] [address] [place] [address], [place] [address] Aug, [facility] [address] [id number] [address] [place] [address] Jul, [facility] [address] [id number] [address] [place] [address] Jul, [facility] [address] [id number] [address] [place] [address] Jul, [facility] [address] [id number] [address] [place] [address] Jul, [facility] [address] [id number] [address] [place] [address] Jul, [facility] [address] [id number] [address] [place] [address] Jul, [facility] [address] [id number] [address] [place] [address] Jul, [facility] [address] [id number] [address] [place] [address] Jul, [facility] [address] [id number] [address] [place] [address] Jul, [facility] [address] [id number] [address] [place] [address] Jul, [facility] [address] [id number] [address] [place] [address] Jul, [facility] [address] [id number] [address] [place] [address] Jul, [facility] [address] [id number] [address] [place] [address] Jun, [facility] [address] [id number] [address] [place] [address] Jun, [facility] [address] [id number] [address] [place] [address], [place] [address] 29 Jun, 2013 [facility] [address] [id number] [address] [place] [address], [place] [address] Jun, [facility] [address] [id number] [address] [place] [address], [place] [address] Jun, [facility] [address] [id number] [address] [place] [address], [place] [address] 16 Jun, 2013 [facility] [address] [id number] [address] [place] [address], [place] [address] 16 Jun, 2013 [facility] [address] [id number] [address] [place] [address], [place] [address] 02 Jun, 2013 [facility] [address] [id number] [address] [place] [address], [place] [address] 25 May, 2013 [facility] [address] [id number] [address] [place] [address], [place] [address] 18 May, 2012 [facility] [address] [id number] [address] [place] [address], [place] [address] 11 May, 2012 [facility] [address] [id number] [address] [place] [address], [place] [address] 10 May, 2013 [facility] [address] [id number] [address] [place] [address], [place] [address] 09 May, 2013 [facility] [address] [id number] [address] [place] [address], [place] [address] 04 May, 2013 [facility] [address] [id number] [address] [place] [address], [place] [address] 30 Apr, 2013 [facility] [address] [id number] [address] [place] [address], [place] [address] 27 Apr, 2013 [facility] [address] [id number] [address] [place]

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
--- OUTSIDE RECORDS SUMMARY | 2020-03-26 15:25 | XMS REPORT ---
Author Author Shireen YOUNGER [facility] Address [address] [place] [address] Care Team Providers Care Vest Busheler Name Role Phone PEMA YOUNGER Unavailable PROBLEMS Type Condition ICD9-CM Code [id number] Code Onset Dates Condition S tatus SNOMED Code Problem alf systemic steroid user Z79.52 Active [id number] Problem Rheumatoid arthritis involvi ng multiple sites, unspecified rheumatoid factor presence M06.9 Active 33262108 Problem Personality disorder, unspecified F60.9 Active 70889437 Problem Post-traumatic stress disorder, chronic F43.12 Active 84271945 Problem Bipolar disorder, current episode depressed, moderate F31.32 Active 797161947 Problem Anorexia nervosa F50.00 Active 568 30189 ALLERGIES No Information ENCOUNTERS Encounter Location Date Diagnosis [facility] [id number] [place] [id number] Nov, [facility] [address] [facility] [id number] [address] [place] [phone] Nov, [facility] [address] [facility] [id number] [address] [place] [phone] Nov, [facility] [id number] [place] [address] Oct, Rheumatoid arthritis involving multiple sites, unspecified rheumatoid factor presence M06.9 [facility] [id number] [place] [address] 6[address] Oct, alf systemic steroid user Z79.52 [facility] [id number] [address] Oct, Bipolar disorder, current episode depressed, moderate F31.32 ; Anorexia nervosa F50.00 ; Rheumatoid arthritis involving multiple sites, unspecified rheumatoid factor presence M06.9 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 [facility] [address] [id number] [address] [place] [phone] Sep, [facility] [address] [id number] [address] [place] [address] Sep, Bipolar disorder, current ep isode depressed, moderate F31.32 ; Post-traumatic stress disorder, chronic F43.12 and Anorexia nervosa F50.00 [facility] [address] [id number] [address] [place] [phone] Sep, [facility] [address] [id number] [address] [place] [phone] Aug, [facility] [address] [id number] [address] [place] [phone] Aug, [facility] [address] [id number] [address] [place] [phone] Aug, [facility] [address] [id number] [address] [place] [address] Aug, Bipolar disorder, current ep isode depressed, moderate F31.32 ; Post-traumatic stress disorder, chronic F43.12 ; Anorexia nervosa F50.00 and Personality disorder, unspecified F60.9 [facility] [address] [id number] [address] [place] [id number] Jul, Bipolar disorder, current ep isode depressed, moderate F31.32 and Anorexia nervosa F50.00 [facility] [address] [id number] [address] [place] [phone] Jul, [facility] [address] [id number] [address] [place] [phone] Jul, [facility] [address] [facility] [id number] [address] [place] [id number] Jul, [facility] [address] [facility] [id number] [address] [place] [phone] Jun, Bipolar disorder, current ep isode depressed, moderate F31.32 ; Post-traumatic stress disorder, chronic F43.12 and Eating disorder, unspecified F50.9 [address] [address] [id number] [address] [place], [place] [address] May, [place] [address] [id number] [address] [place] [phone] Apr, Bipolar disorder, current ep isode depressed, moderate F31.32 ; Post-traumatic stress disorder, chronic F43.12 and Eating disorder, unspecified F50.9 [address] [address] [id number] [address] [place] [phone] Feb, Bipolar disorder, current ep isode depressed, moderate F31.32 ; Post-traumatic stress disorder, chronic F43.12 and Personality disorder, unspecified F60.9 [address] [address] [id number] [address] [place] [address] Feb, Bipolar II disorder F31.81 [address] [address] [id number] [address] [place] [phone] Dec, Bipolar disorder, current ep isode depressed, moderate F31.32 ; Post-traumatic stress disorder, chronic F43.12 and Personality disorder, unspecified F60.9 [place] [address] [id number] [address] [place] [phone] Dec, Bipolar disorder, current ep isode depressed, moderate F31.32 ; Post-traumatic stress disorder, chronic F43.12 and Personality disorder, unspecified F60.9 [place] [address] [id number] [address] [place] [phone] Dec, [place] [address] [id number] [address] [place] [phone] Dec, [place] [address] [id number] [address] [place] [phone] Dec, Bipolar disorder, current ep isode depressed, moderate F31.32 ; Post-traumatic stress disorder, chronic F43.12 and Personality disorder, unspecified F60.9 [place] [id number] [id number] [address] [place] [phone] Nov, [facility] [address] [facility] [id number] [address] [place], [place] [address] Nov, Bipolar disorder, current ep isode depressed, moderate F31.32 ; Post-traumatic stress disorder, chronic F43.12 and Personality disorder, unspecified F60.9 [place] [address] [facility] [id number] [address] [place], [place] [address] Nov, Bipolar disorder, current ep isode depressed, moderate F31.32 ; Post-traumatic stress disorder, chronic F43.12 and Personality disorder, unspecified F60.9 [place] [address] [facility] [id number] [address] [place] [phone] Oct, [place] [address] [facility] [id number] [address] [place] [phone] Oct, Bipolar disorder, current ep isode depressed, moderate F31.32 ; Post-traumatic stress disorder, chronic F43.12 and Personality disorder, unspecified F60.9 [place] [address] [facility] [id number] [address] [place] [phone] Oct, Bipolar disorder, current ep isode depressed, moderate F31.32 ; Post-traumatic stress disorder, chronic F43.12 and Personality disorder, unspecified F60.9 [place] [address] [facility] [id number] [address] [place] [address] Aug, Bipolar II disorder F31.81 a nd Post-traumatic stress disorder, unspecified F43.10 [place] [address] [id number] [address] [place] [address] Aug, Bipolar disorder, current ep isode depressed, moderate F31.32 ; Post-traumatic stress disorder, chronic F43.12 and Personality disorder, unspecified F60.9 [place] [address] [facility] [id number] [address] [place] [phone] Jul, Bipolar disorder, unspecifie d 296.80 and Posttraumatic stress disorder 309.81 [facility] [address] [id number] [address] [place] [address] Jul, Post-traumatic stress disord er, chronic F43.12 ; Personality disorder, unspecified F60.9 and Bipolar disorder, current episode depressed, moderate F31.32 [facility] [address] [id number] [address] [place] [address] Jun, Bipolar disorder, unspecifie d 296.80 and Posttraumatic stress disorder 309.81 [facility] [address] [id number] [address] [place] [phone] Jun, Bipolar disorder, unspecifie d 296.80 and Posttraumatic stress disorder 309.81 [facility] [address] [facility] [id number] [address] [place] [phone] Jun, Posttraumatic stress disorde r 309.81 and Bipolar disorder, unspecified 296.80 [facility] [address] [facility] [id number] [address] [place] [address] May, 2014 Bipolar II disorder 296.89 a nd Post traumatic stress disorder 309.81 [facility] [address] [facility] [id number] [address] [place] [phone] 18 May, 2014 Bipolar II disorder 296.89 a nd Post traumatic stress disorder 309.81 [facility] [address] [facility] [id number] [address] [place] [phone] 17 May, 2014 [facility] [address] [facility] [id number] [address] [place] [phone] 09 May, 2014 [facility] [address] [id number] [address] [place] [phone] May, 2014 [facility] [address] [facility] [id number] [address] [place] [phone] May, 2014 [facility] [address] [facility] [id number] [address] [place] [phone] May, 2014 Bipolar II disorder 296.89 a nd Post traumatic stress disorder 309.81 [facility] [address] [id number] [address] [place] [phone] May, Bipolar I disorder, most rec ent episode (or current) depressed, moderate 296.52 ; Posttraumatic stress disorder 309.81 and Anxiety state, unspecified 300.00 [facility] [address] [id number] [address] [place] [address] Apr, Bipolar II disorder 296.89 a nd Post traumatic stress disorder 309.81 [facility] [address] [id number] [address] [place] [phone] Apr, [facility] [address] [id number] [address] [place] [phone] Apr, Bipolar II disorder 296.89 a nd Post traumatic stress disorder 309.81 [facility] [address] [id number] [address] [place] [address] Apr, Bipolar II disorder 296.89 a nd Post traumatic stress disorder 309.81 [facility] [address] [id number] [address] [place] [phone] Mar, Bipolar II disorder 296.89 a nd Post traumatic stress disorder 309.81 [facility] [address] [id number] [address] [place] [phone] Mar, [facility] [address] [id number] [address] [place] [phone] Mar, Bipolar II disorder 296.89 a nd Post traumatic stress disorder 309.81 [facility] [address] [id number] [address] [place] [address] Mar, Bipolar II disorder 296.89 a nd Post traumatic stress disorder 309.81 [facility] [address] [id number] [address] [place] [phone] Mar, Bipolar II disorder 296.89 a nd Post traumatic stress disorder 309.81 [facility] [address] [id number] [address] [place] [phone] Mar, [facility] [address] [id number] [address] [place] [phone] Mar, Bipolar II disorder 296.89 a nd Post traumatic stress disorder 309.81 [facility] [address] [id number] [address] [place] [phone] Feb, Bipolar II disorder 296.89 a nd Post traumatic stress disorder 309.81 [facility] [address] [id number] [address] [place] [phone] Feb, [facility] [address] [id number] [address] [place] [phone] Feb, Bipolar disorder, unspecifie d 296.80 and Anxiety state, unspecified 300.00 [facility] [address] [id number] [address] [place] [phone] Feb, [facility] [address] [id number] [address] [place] [phone] Feb, [facility] [address] [id number] [address] [place] [phone] January, [facility] [address] [id number] [address] [place] [phone] Dec, [facility] [address] [id number] [address] [place] [phone] Dec, [facility] [address] [id number] [address] [place] [phone] Nov, [facility] [address] [id number] [address] [place] [phone] Nov, [facility] [address] [id number] [address] [place] [phone] Nov, [facility] [address] [id number] [address] [place] [phone] Nov, [facility] [address] [id number] [address] [place] [phone] Nov, [facility] [address] [id number] [address] [place] [address], [place] [address] Nov, [facility] [address] [id number] [address] [place] [address], [place] [address] Nov, [facility] [address] [id number] [address] [place] [address], [place] [address] Nov, [facility] [address] [id number] [address] [place] [address], [place] [address] Nov, [facility] [address] [id number] [address] [place] [address], [place] [address] Oct, [facility] [address] [id number] [address] [place] [address], [place] [address] Oct, [facility] [address] [id number] [address] [place] [address], [place] [address] Oct, [facility] [address] [id number] [address] [place] [address], [place] [address] Oct, [facility] [address] [id number] [address] [place] [address], [place] [address] Oct, [facility] [address] [id number] [address] [place] [address], [place] [address] Oct, [facility] [address] [id number] [address] [place] [address], [place] [address] Oct, [facility] [address] [id number] [address] [place] [address], [place] [address] Oct, [facility] [address] [id number] [address] [place] [address], [place] [address] Sep, [facility] [address] [id number] [address] [place] [address], [place] [address] Sep, [facility] [address] [id number] [address] [place] [address], [place] [address] Sep, [facility] [address] [id number] [address] [place] [address] [address] Sep, [facility] [address] [id number] [address] [place] [address], [place] [address] Sep, [facility] [address] [id number] [address] [place] [address], [place] [address] Sep, [facility] [address] [id number] [address] [place] [address], [place] [address] Sep, [facility] [address] [id number] [address] [place] [address], [place] [address] Sep, [facility] [address] [id number] [address] [place] [address], [place] [address] Sep, [facility] [address] [id number] [address] [place] [address], [place] [address] Sep, [facility] [address] [id number] [address] [place] [address], [place] [address] Aug, [facility] [address] [id number] [address] [place] [address], [place] [address] Aug, [facility] [address] [id number] [address] [place] [address], [place] [address] Aug, [facility] [address] [id number] [address] [place] [address], [place] [address] Aug, [facility] [address] [id number] [address] [place] [address], [place] [address] Aug, [facility] [address] [id number] [address] [place] [address], [place] [address] Aug, [facility] [address] [id number] [address] [place] [address], [place] [address] Aug, [facility] [address] [id number] [address] [place] [address], [place] [address] Aug, [facility] [address] [id number] [address] [place] [address], [place] [address] Jul, [facility] [address] [id number] [address] [place] [address], [place] [address] Jul, [facility] [address] [id number] [address] [place] [address], [place] [address] Jul, [facility] [address] [id number] [address] [place] [address], [place] [address] Jul, [facility] [address] [id number] [address] [place] [address], [place] [address] Jul, [facility] [address] [id number] [address] [place] [address], [place] [address] Jul, [facility] [address] [id number] [address] [place] [address], [place] [address] Jul, [facility] [address] [id number] [address] [place] [address], [place] [address] Jul, [facility] [address] [id number] [address] [place] [address], [place] [address] Jul, [facility] [address] [id number] [address] [place] [address], [place] [address] Jun, [facility] [address] [id number] [address] [place] [address], [place] [address] Jun, [facility] [address] [id number] [address] [place] [address], [place] [address] Jun, [facility] [address] [id number] [address] [place] [address], [place] [address] Jun, [facility] [address] [id number] [address] [place] [id number] Jun, [facility] [address] [id number] [address] [place] [address], [place] [address] Jun, [facility] [address] [id number] [address] [place] [address], [place] [address] May, [facility] [address] [id number] [address] [place] [address], [place] [address] May, [facility] [address] [id number] [facility] [place] [address] May, [facility] [address] [id number] [address] [place] [address], [place] [address] May, [facility] [address] [id number] [address] [place] [address], [place] [address] May, [facility] [address] [id number] [address] [place] [address], [place] [address] May, [facility] [address] [id number] [address] [place] [address], [place] [address] Apr, [facility] [address] [id number] [address] [place] [address], [place] [address] Apr, [facility] [address] [id number] [address] [place] [address], [place] [address] Apr, [facility] [address] [id number] [address] [place] [address], [place] [address] Apr, [facility] [address] [id number] [address] [place] [address], [place] [address] Apr, [facility] [address] [id number] [address] [place] [address], [place] [address] Apr, [facility] [address] [id number] [address] [place] [address], [place] [address] Mar, [facility] [address] [id number] [address] [place] [address], [place] [address] Mar, [facility] [address] [id number] [address] [place] [address], [place] [address] Mar, [facility] [address] [id number] [address] [place] [address], [place] [address] Mar, [facility] [address] [id number] [address] [place] [address], [place] [address] Mar, [facility] [address] [id number] [address] [place] [address], [place] [address] Mar, 2013 [facility] [address] [id number] [facility] [place] [address] Mar, 2013 [facility] [address] [id number] [address] [place] [address], [place] [address] Mar, 2013 [facility] [address] [id number] [address] [place] [address], [place] [address] Mar, 2013 [facility] [address] [id number] [address] [place] [address], [place] [address] Mar, 2013 [facility] [address] [id number] [address] [place] [address], [place] [address] Mar, 2013 [facility] [address] [id number] [address] [place] [address], [place] [address] Mar, 2013 [facility] [address] [id number] [address] [place] [address], [place] [address] Mar, [facility] [address] [id number] [address] [place] [address], [place] [address] Mar, [facility] [address] [id number] [address] [place] [address], [place] [address] Mar, [facility] [address] [id number] [address] [place] [address], [place] [address] Mar, [facility] [address] [id number] [address] [place] [address], [place] [address] Feb, [facility] [address] [id number] [address] [place] [address], [place] [address] Feb, [facility] [address] [id number] [address] [place] [address], [place] [address] Feb, [facility] [address] [id number] [address] [place] [address], [place] [address] Feb, [facility] [address] [id number] [address] [place] [address], [place] [address] Feb, [facility] [address] [id number] [facility] [place] [address] Feb, [facility] [address] [id number] [facility] [place] [address] Feb, [facility] [address] [id number] [facility] [place] [address] Feb, [facility] [address] [id number] [address] [place] [address], [place] [address] Feb, [facility] [address] [id number] [address] [place] [address], [place] [address] Feb, [facility] [address] [id number] [address] [place] [address], [place] [address] Feb, [facility] [address] [id number] [address] [place] [address], [place] [address] Feb, [facility] [address] [id number] [address] [place] [address], [place] [address] Feb, [facility] [address] [id number] [address] [place] [address], [place] [address] January, [facility] [address] [id number] [address] [place] [address], [place] [address] January, [facility] [address] [id number] [address] [place] [address], [place] [address] January, [facility] [address] [id number] [address] [place] [address], [place] [address] January, [facility] [address] [id number] [address] [place] [address], [place] [address] January, [facility] [address] [id number] [address] [place] [address], [place] [address] January, [facility] [address] [id number] [address] [place] [address], [place] [address] January, [facility] [address] [id number] [address] [place] [address], [place] [address] January, [facility] [address] [id number] [address] [place] [address], [place] [address] January, [facility] [address] [id number] [address] [place] [address], [place] [address] January, [facility] [address] [id number] [address] [place] [address], [place] [address] January, [facility] [address] [id number] [address] [place] [address], [place] [address] January, [facility] [address] [id number] [address] [place] [address], [place] [address] January, [facility] [address] [id number] [address] [place] [address], [place] [address] January, [facility] [address] [id number] [address] [place] [address], [place] [address] Dec, [facility] [address] [id number] [address] [place] [address], [place] [address] Dec, [facility] [address] [id number] [address] [place] [address], [place] [address] Dec, [facility] [address] [id number] [address] [place] [address], [place] [address] Dec, [facility] [address] [id number] [address] [place] [address], [place] [address] Dec, [facility] [address] [id number] [address] [place] [address], [place] [address] Dec, [facility] [address] [id number] [address] [place] [address], [place] [address] Dec, [facility] [address] [id number] [address] [place] [address], [place] [address] Dec, [facility] [address] [id number] [address] [place] [address], [place] [address] Nov, [facility] [address] [id number] [address] [place] [address], [place] [address] Nov, [facility] [address] [id number] [address] [place] [address], [place] [address] Nov, [facility] [address] [id number] [address] [place] [address], [place] [address] Nov, [facility] [address] [id number] [address] [place] [address], [place] [address] Oct, [facility] [address] [id number] [address] [place] [address], [place] [address] Oct, [facility] [address] [id number] [address] [place] [address], [place] [address] Oct, [facility] [address] [id number] [address] [place] [address], [place] [address] Oct, [facility] [address] [id number] [address] [place] [address], [place] [address] Oct, [facility] [address] [id number] [address] [place] [address], [place] [address] Oct, [facility] [address] [id number] [address] [place] [address], [place] [address] Sep, [facility] [address] [id number] [address] [place] [address], [place] [address] Sep, [facility] [address] [id number] [address] [place] [address], [place] [address] Sep, [facility] [address] [id number] [address] [place] [address], [place] [address] Sep, [facility] [address] [id number] [address] [place] [address], [place] [address] Sep, [facility] [address] [id number] [address] [place] [address], [place] [address] Sep, [facility] [address] [id number] [address] [place] [address], [place] [address] Sep, [facility] [address] [id number] [address] [place] [address], [place] [address] Sep, [facility] [address] [id number] [address] [place] [address], [place] [address] Sep, [facility] [address] [id number] [address] [place] [address], [place] [address] Sep, [facility] [address] [id number] [address] [place] [address], [place] [address] Aug, [facility] [address] [id number] [address] [place] [address], [place] [address] Aug, [facility] [address] [id number] [address] [place] [address], [place] [address] Aug, [facility] [address] [id number] [address] [place] [address], [place] [address] Aug, [facility] [address] [id number] [address] [place] [address], [place] [address] Aug, [facility] [address] [id number] [address] [place] [address], [place] [address] Aug, [facility] [address] [id number] [address] [place] [address], [place] [address] Aug, [facility] [address] [id number] [address] [place] [address], [place] [address] Aug, [facility] [address] [id number] [address] [place] [address], [place] [address] Jul, [facility] [address] [id number] [address] [place] [address], [place] [address] Jul, [facility] [address] [id number] [address] [place] [address], [place] [address] Jul, [facility] [address] [id number] [address] [place] [address], [place] [address] Jul, [facility] [address] [id number] [address] [place] [id number] Jul, [facility] [address] [id number] [address] [place] [address], [place] [address] Jul, [facility] [address] [id number] [address] [place] [address] Jul, [facility] [address] [id number] [address] [place] [id number] Jul, [facility] [address] [id number] [address] [place] [id number] Jul, [facility] [address] [id number] [address] [place] [address], [place] [address] Jul, [facility] [address] [id number] [address] [place] [id number] Jul, [facility] [address] [id number] [address] [place] [id number] Jul, [facility] [address] [id number] [address] [place] [phone] Jun, [facility] [address] [id number] [address] [place] [address] Jun, [facility] [address] [id number] [address] [place] [id number] 29 Jun, 2013 [facility] [address] [id number] [address] [place] [phone] Jun, [facility] [address] [id number] [address] [place] [phone] Jun, [facility] [address] [id number] [address] [place] [phone] Jun, [facility] [address] [id number] [address] [place] [phone] Jun, [facility] [address] [id number] [address] [place] [phone] Jun, [facility] [address] [id number] [facility] [place] [address] 25 May, 2012 [facility] [address] [id number] [address] [place] [address], [place] [address] 18 May, 2013 [facility] [address] [id number] [address] [place] [address], [place] [address] 11 May, 2012 [facility] [address] [id number] [address] [place] [address], [place] [address] 10 May, 2012 [facility] [address] [id number] [address] [place] [address], [place] [address] 09 May, 2013 [facility] [address] [id number] [address] [place] [address], [place] [address] 04 May, 2013 [facility] [address] [id number] [address] [place] [address], [place] [address] 30 Apr, 2013 [facility] [address] [id number] [address] [place] [address], [place] [address] Apr, [facility] [address] [id number] [address] [place] [address], [place] [address] Apr, [facility] [address] [id number] [address] [place] [address], [place] [address] Apr, [facility] [address] [id number] [address] [place] [address], [place] [address] Apr, [facility] [address] [id number] [address] [place] [address], [place] [address] Mar, [facility] [address] [id number] [address] [place] [address], [place] [address] Mar, [facility] [address] [id number] [address] [place] [address], [place] [address] Mar, [facility] [address] [id number] [address] [place] [address], [place] [address] 24 Feb, 2013 [facility] [address] [id number] [address] [place] [address], [place] [address] Feb, [facility] [address] [facility] [id number] [address] [place] [id number] Feb, [facility] [address] [facility] [id number] [address] [place] [phone] January, [facility] [address] [facility] [id number] [address] [place] [id number] January, [facility]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
--- OUTSIDE RECORDS SUMMARY | 2020-03-26 15:25 | XMS REPORT ---
Author Author Shireen YOUNGER [facility] Address [address] [place] [address] Care Team Providers Care Water Resource Consultant Name Role Phone PEMA YOUNGER Unavailable PROBLEMS Type Condition ICD9-CM Code [id number] Code Onset Dates Condition S tatus SNOMED Code Problem jail systemic steroid user Z79.52 Active 28443226543608910 Problem Rheumatoid arthritis involvi ng multiple sites, unspecified rheumatoid factor presence M06.9 Active 81758861 Problem Personality disorder, unspecified F60.9 Active 99451212 Problem Post-traumatic stress disorder, chronic F43.12 Active 43764560 Problem Bipolar disorder, current episode depressed, moderate F31.32 Active 275152309 Problem Anorexia nervosa F50.00 Active 568 06387 ALLERGIES No Information ENCOUNTERS Encounter Location Date Diagnosis [facility] [id number] [place] [phone] Nov, [facility] [address] [facility] [id number] [address] [place] [address] Nov, [facility] [address] [facility] [id number] [address] [place] [address] Nov, [facility] [id number] [place] [address] 6[address] Oct, Rheumatoid arthritis involving multiple sites, unspecified rheumatoid factor presence M06.9 [facility] [id number] [place] [address] 6[address] Oct, jail systemic steroid user Z79.52 [facility] [id number] [address] Oct, Bipolar disorder, current episode depressed, moderate F31.32 ; Anorexia nervosa F50.00 ; Rheumatoid arthritis involving multiple sites, unspecified rheumatoid factor presence M06.9 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 [facility] [address] [id number] [address] [place] [address] Sep, [facility] [address] [id number] [address] [place] [address] Sep, Bipolar disorder, current ep isode depressed, moderate F31.32 ; Post-traumatic stress disorder, chronic F43.12 and Anorexia nervosa F50.00 [facility] [address] [id number] [address] [place] [address] Sep, [facility] [address] [id number] [address] [place] [address] Aug, [facility] [address] [id number] [address] [place] [address] Aug, [facility] [address] [id number] [address] [place] [address] Aug, [facility] [address] [id number] [address] [place] [address] Aug, Bipolar disorder, current ep isode depressed, moderate F31.32 ; Post-traumatic stress disorder, chronic F43.12 ; Anorexia nervosa F50.00 and Personality disorder, unspecified F60.9 [facility] [address] [id number] [address] [place] [address] Jul, Bipolar disorder, current ep isode depressed, moderate F31.32 and Anorexia nervosa F50.00 [facility] [address] [id number] [address] [place] [address] Jul, [facility] [address] [id number] [address] [place] [address] Jul, [facility] [address] [facility] [id number] [address] [place] [address] Jul, [facility] [address] [facility] [id number] [address] [place] [address] Jun, Bipolar disorder, current ep isode depressed, moderate F31.32 ; Post-traumatic stress disorder, chronic F43.12 and Eating disorder, unspecified F50.9 [place] [facility] [address] [id number] [address] [place] [address] May, [place] [address] [id number] [address] [place] [address] Apr, Bipolar disorder, current ep isode depressed, moderate F31.32 ; Post-traumatic stress disorder, chronic F43.12 and Eating disorder, unspecified F50.9 [place] [address] [id number] [address] [place] [address] Feb, Bipolar disorder, current ep isode depressed, moderate F31.32 ; Post-traumatic stress disorder, chronic F43.12 and Personality disorder, unspecified F60.9 [place] [address] [id number] [address] [place] [address] Feb, Bipolar II disorder F31.81 [place] [address] [id number] [address] [place] [address] Dec, Bipolar disorder, current ep isode depressed, moderate F31.32 ; Post-traumatic stress disorder, chronic F43.12 and Personality disorder, unspecified F60.9 [place] [address] [id number] [address] [place] [address] Dec, Bipolar disorder, current ep isode depressed, moderate F31.32 ; Post-traumatic stress disorder, chronic F43.12 and Personality disorder, unspecified F60.9 [place] [address] [id number] [address] [place] [address] Dec, [place] [address] [id number] [address] [place] [address] Dec, [place] [address] [id number] [address] [place] [address] Dec, Bipolar disorder, current ep isode depressed, moderate F31.32 ; Post-traumatic stress disorder, chronic F43.12 and Personality disorder, unspecified F60.9 [place] [address] [id number] [address] [place] [address] Nov, [facility] [address] [facility] [id number] [address] [place] [address] Nov, Bipolar disorder, current ep isode depressed, moderate F31.32 ; Post-traumatic stress disorder, chronic F43.12 and Personality disorder, unspecified F60.9 [place] [address] [facility] [id number] [address] [place] [address] Nov, Bipolar disorder, current ep isode depressed, moderate F31.32 ; Post-traumatic stress disorder, chronic F43.12 and Personality disorder, unspecified F60.9 [place] [address] [facility] [id number] [address] [place] [address] Oct, [place] [address] [facility] [id number] [address] [place] [address] Oct, Bipolar disorder, current ep isode depressed, moderate F31.32 ; Post-traumatic stress disorder, chronic F43.12 and Personality disorder, unspecified F60.9 [place] [address] [facility] [id number] [address] [place] [address] Oct, Bipolar disorder, current ep isode depressed, moderate F31.32 ; Post-traumatic stress disorder, chronic F43.12 and Personality disorder, unspecified F60.9 [place] [address] [facility] [id number] [address] [place] [address] Aug, Bipolar II disorder F31.81 a nd Post-traumatic stress disorder, unspecified F43.10 [place] [address] [id number] [address] [place] [address] Aug, Bipolar disorder, current ep isode depressed, moderate F31.32 ; Post-traumatic stress disorder, chronic F43.12 and Personality disorder, unspecified F60.9 [place] [address] [facility] [id number] [address] [place] [address] Jul, Bipolar disorder, unspecifie d 296.80 and Posttraumatic stress disorder 309.81 [facility] [address] [id number] [address] [place] [address] Jul, Post-traumatic stress disord er, chronic F43.12 ; Personality disorder, unspecified F60.9 and Bipolar disorder, current episode depressed, moderate F31.32 [facility] [address] [id number] [address] [place] [address] Jun, Bipolar disorder, unspecifie d 296.80 and Posttraumatic stress disorder 309.81 [facility] [address] [id number] [address] [place] [address] Jun, Bipolar disorder, unspecifie d 296.80 and Posttraumatic stress disorder 309.81 [facility] [address] [facility] [id number] [address] [place] [address] Jun, Posttraumatic stress disorde r 309.81 and Bipolar disorder, unspecified 296.80 [facility] [address] [facility] [id number] [address] [place] [address] May, 2014 Bipolar II disorder 296.89 a nd Post traumatic stress disorder 309.81 [facility] [address] [facility] [id number] [address] [place] [address] 18 May, 2014 Bipolar II disorder 296.89 a nd Post traumatic stress disorder 309.81 [facility] [address] [facility] [id number] [address] [place] [address] 17 May, 2014 [facility] [address] [facility] [id number] [address] [place] [address] 09 May, 2014 [facility] [address] [id number] [address] [place] [address] May, 2014 [facility] [address] [facility] [id number] [address] [place] [address] May, 2014 [facility] [address] [facility] [id number] [address] [place] [address] May, 2014 Bipolar II disorder 296.89 a nd Post traumatic stress disorder 309.81 [facility] [address] [id number] [address] [place] [address] May, Bipolar I disorder, most rec ent episode (or current) depressed, moderate 296.52 ; Posttraumatic stress disorder 309.81 and Anxiety state, unspecified 300.00 [facility] [address] [id number] [address] [place] [address] Apr, Bipolar II disorder 296.89 a nd Post traumatic stress disorder 309.81 [facility] [address] [id number] [address] [place] [address] Apr, [facility] [address] [id number] [address] [place] [address] Apr, Bipolar II disorder 296.89 a nd Post traumatic stress disorder 309.81 [facility] [address] [id number] [address] [place] [address] Apr, Bipolar II disorder 296.89 a nd Post traumatic stress disorder 309.81 [facility] [address] [id number] [address] [place] [address] Mar, Bipolar II disorder 296.89 a nd Post traumatic stress disorder 309.81 [facility] [address] [id number] [address] [place] [address] Mar, [facility] [address] [id number] [address] [place] [address] Mar, Bipolar II disorder 296.89 a nd Post traumatic stress disorder 309.81 [facility] [address] [id number] [address] [place] [address] Mar, Bipolar II disorder 296.89 a nd Post traumatic stress disorder 309.81 [facility] [address] [id number] [address] [place] [address] Mar, Bipolar II disorder 296.89 a nd Post traumatic stress disorder 309.81 [facility] [address] [id number] [address] [place] [address] Mar, [facility] [address] [id number] [address] [place] [address] Mar, Bipolar II disorder 296.89 a nd Post traumatic stress disorder 309.81 [facility] [address] [id number] [address] [place] [address] Feb, Bipolar II disorder 296.89 a nd Post traumatic stress disorder 309.81 [facility] [address] [id number] [address] [place] [address] Feb, [facility] [address] [id number] [address] [place] [address] Feb, Bipolar disorder, unspecifie d 296.80 and Anxiety state, unspecified 300.00 [facility] [address] [id number] [address] [place] [address] Feb, [facility] [address] [id number] [address] [place] [address] Feb, [facility] [address] [id number] [address] [place] [address] January, [facility] [address] [id number] [address] [place] [address] Dec, [facility] [address] [id number] [address] [place] [address] Dec, [facility] [address] [id number] [address] [place] [address] Nov, [facility] [address] [id number] [address] [place] [address] Nov, [facility] [address] [id number] [address] [place] [address] Nov, [facility] [address] [id number] [address] [place] [address] Nov, [facility] [address] [id number] [address] [place] [address] Nov, [facility] [address] [id number] [address] [place] [address], [place] [address] Nov, [facility] [address] [id number] [address] [place] [address], [place] [address] Nov, [facility] [address] [id number] [address] [place] [address], [place] [address] Nov, [facility] [address] [id number] [address] [place] [address], [place] [address] Nov, [facility] [address] [id number] [address] [place] [address], [place] [address] Oct, [facility] [address] [id number] [address] [place] [address], [place] [address] Oct, [facility] [address] [id number] [address] [place] [address], [place] [address] Oct, [facility] [address] [id number] [address] [place] [address], [place] [address] Oct, [facility] [address] [id number] [address] [place] [address], [place] [address] Oct, [facility] [address] [id number] [address] [place] [address], [place] [address] Oct, [facility] [address] [id number] [address] [place] [address], [place] [address] Oct, [facility] [address] [id number] [address] [place] [address], [place] [address] Oct, [facility] [address] [id number] [address] [place] [address], [place] [address] Sep, [facility] [address] [id number] [address] [place] [address], [place] [address] Sep, [facility] [address] [id number] [address] [place] [address], [place] [address] Sep, [facility] [address] [id number] [address] [place] [address] [address] Sep, [facility] [address] [id number] [address] [place] [address], [place] [address] Sep, [facility] [address] [id number] [address] [place] [address], [place] [address] Sep, [facility] [address] [id number] [address] [place] [address], [place] [address] Sep, [facility] [address] [id number] [address] [place] [address], [place] [address] Sep, [facility] [address] [id number] [address] [place] [address], [place] [address] Sep, [facility] [address] [id number] [address] [place] [address], [place] [address] Sep, [facility] [address] [id number] [address] [place] [address], [place] [address] Aug, [facility] [address] [id number] [address] [place] [address], [place] [address] Aug, [facility] [address] [id number] [address] [place] [address], [place] [address] Aug, [facility] [address] [id number] [address] [place] [address], [place] [address] Aug, [facility] [address] [id number] [address] [place] [address], [place] [address] Aug, [facility] [address] [id number] [address] [place] [address], [place] [address] Aug, [facility] [address] [id number] [address] [place] [address], [place] [address] Aug, [facility] [address] [id number] [address] [place] [address], [place] [address] Aug, [facility] [address] [id number] [address] [place] [address], [place] [address] Jul, [facility] [address] [id number] [address] [place] [address], [place] [address] Jul, [facility] [address] [id number] [address] [place] [address], [place] [address] Jul, [facility] [address] [id number] [address] [place] [address], [place] [address] Jul, [facility] [address] [id number] [address] [place] [address], [place] [address] Jul, [facility] [address] [id number] [address] [place] [address], [place] [address] Jul, [facility] [address] [id number] [address] [place] [address], [place] [address] Jul, [facility] [address] [id number] [address] [place] [address], [place] [address] Jul, [facility] [address] [id number] [address] [place] [address], [place] [address] Jul, [facility] [address] [id number] [address] [place] [address], [place] [address] Jun, [facility] [address] [id number] [address] [place] [address], [place] [address] Jun, [facility] [address] [id number] [address] [place] [address], [place] [address] Jun, [facility] [address] [id number] [address] [place] [address], [place] [address] Jun, [facility] [address] [id number] [address] [place] [address] Jun, [facility] [address] [id number] [address] [place] [address], [place] [address] Jun, [facility] [address] [id number] [address] [place] [address], [place] [address] May, [facility] [address] [id number] [address] [place] [address], [place] [address] May, [facility] [address] [id number] [facility] [place] [address] May, [facility] [address] [id number] [address] [place] [address], [place] [address] May, [facility] [address] [id number] [address] [place] [address], [place] [address] May, [facility] [address] [id number] [address] [place] [address], [place] [address] May, [facility] [address] [id number] [address] [place] [address], [place] [address] Apr, [facility] [address] [id number] [address] [place] [address], [place] [address] Apr, [facility] [address] [id number] [address] [place] [address], [place] [address] Apr, [facility] [address] [id number] [address] [place] [address], [place] [address] Apr, [facility] [address] [id number] [address] [place] [address], [place] [address] Apr, [facility] [address] [id number] [address] [place] [address], [place] [address] Apr, [facility] [address] [id number] [address] [place] [address], [place] [address] Mar, [facility] [address] [id number] [address] [place] [address], [place] [address] Mar, [facility] [address] [id number] [address] [place] [address], [place] [address] Mar, [facility] [address] [id number] [address] [place] [address], [place] [address] Mar, [facility] [address] [id number] [address] [place] [address], [place] [address] Mar, [facility] [address] [id number] [address] [place] [address], [place] [address] Mar, 2013 [facility] [address] [id number] [facility] [place] [address] Mar, 2013 [facility] [address] [id number] [address] [place] [address], [place] [address] Mar, 2013 [facility] [address] [id number] [address] [place] [address], [place] [address] Mar, 2013 [facility] [address] [id number] [address] [place] [address], [place] [address] Mar, 2013 [facility] [address] [id number] [address] [place] [address], [place] [address] Mar, 2013 [facility] [address] [id number] [address] [place] [address], [place] [address] Mar, 2013 [facility] [address] [id number] [address] [place] [address], [place] [address] Mar, [facility] [address] [id number] [address] [place] [address], [place] [address] Mar, [facility] [address] [id number] [address] [place] [address], [place] [address] Mar, [facility] [address] [id number] [address] [place] [address], [place] [address] Mar, [facility] [address] [id number] [address] [place] [address], [place] [address] Feb, [facility] [address] [id number] [address] [place] [address], [place] [address] Feb, [facility] [address] [id number] [address] [place] [address], [place] [address] Feb, [facility] [address] [id number] [address] [place] [address], [place] [address] Feb, [facility] [address] [id number] [address] [place] [address], [place] [address] Feb, [facility] [address] [id number] [facility] [place] [address] Feb, [facility] [address] [id number] [facility] [place] [address] Feb, [facility] [address] [id number] [facility] [place] [address] Feb, [facility] [address] [id number] [address] [place] [address], [place] [address] Feb, [facility] [address] [id number] [address] [place] [address], [place] [address] Feb, [facility] [address] [id number] [address] [place] [address], [place] [address] Feb, [facility] [address] [id number] [address] [place] [address], [place] [address] Feb, [facility] [address] [id number] [address] [place] [address], [place] [address] Feb, [facility] [address] [id number] [address] [place] [address], [place] [address] January, [facility] [address] [id number] [address] [place] [address], [place] [address] January, [facility] [address] [id number] [address] [place] [address], [place] [address] January, [facility] [address] [id number] [address] [place] [address], [place] [address] January, [facility] [address] [id number] [address] [place] [address], [place] [address] January, [facility] [address] [id number] [address] [place] [address], [place] [address] January, [facility] [address] [id number] [address] [place] [address], [place] [address] January, [facility] [address] [id number] [address] [place] [address], [place] [address] January, [facility] [address] [id number] [address] [place] [address], [place] [address] January, [facility] [address] [id number] [address] [place] [address], [place] [address] January, [facility] [address] [id number] [address] [place] [address], [place] [address] January, [facility] [address] [id number] [address] [place] [address], [place] [address] January, [facility] [address] [id number] [address] [place] [address], [place] [address] January, [facility] [address] [id number] [address] [place] [address], [place] [address] January, [facility] [address] [id number] [address] [place] [address], [place] [address] Dec, [facility] [address] [id number] [address] [place] [address], [place] [address] Dec, [facility] [address] [id number] [address] [place] [address], [place] [address] Dec, [facility] [address] [id number] [address] [place] [address], [place] [address] Dec, [facility] [address] [id number] [address] [place] [address], [place] [address] Dec, [facility] [address] [id number] [address] [place] [address], [place] [address] Dec, [facility] [address] [id number] [address] [place] [address], [place] [address] Dec, [facility] [address] [id number] [address] [place] [address], [place] [address] Dec, [facility] [address] [id number] [address] [place] [address], [place] [address] Nov, [facility] [address] [id number] [address] [place] [address], [place] [address] Nov, [facility] [address] [id number] [address] [place] [address], [place] [address] Nov, [facility] [address] [id number] [address] [place] [address], [place] [address] Nov, [facility] [address] [id number] [address] [place] [address], [place] [address] Oct, [facility] [address] [id number] [address] [place] [address], [place] [address] Oct, [facility] [address] [id number] [address] [place] [address], [place] [address] Oct, [facility] [address] [id number] [address] [place] [address], [place] [address] Oct, [facility] [address] [id number] [address] [place] [address], [place] [address] Oct, [facility] [address] [id number] [address] [place] [address], [place] [address] Oct, [facility] [address] [id number] [address] [place] [address], [place] [address] Sep, [facility] [address] [id number] [address] [place] [address], [place] [address] Sep, [facility] [address] [id number] [address] [place] [address], [place] [address] Sep, [facility] [address] [id number] [address] [place] [address], [place] [address] Sep, [facility] [address] [id number] [address] [place] [address], [place] [address] Sep, [facility] [address] [id number] [address] [place] [address], [place] [address] Sep, [facility] [address] [id number] [address] [place] [address], [place] [address] Sep, [facility] [address] [id number] [address] [place] [address], [place] [address] Sep, [facility] [address] [id number] [address] [place] [address], [place] [address] Sep, [facility] [address] [id number] [address] [place] [address], [place] [address] Sep, [facility] [address] [id number] [address] [place] [address], [place] [address] Aug, [facility] [address] [id number] [address] [place] [address], [place] [address] Aug, [facility] [address] [id number] [address] [place] [address], [place] [address] Aug, [facility] [address] [id number] [address] [place] [address], [place] [address] Aug, [facility] [address] [id number] [address] [place] [address], [place] [address] Aug, [facility] [address] [id number] [address] [place] [address], [place] [address] Aug, [facility] [address] [id number] [address] [place] [address], [place] [address] Aug, [facility] [address] [id number] [address] [place] [address], [place] [address] Aug, [facility] [address] [id number] [address] [place] [address], [place] [address] Jul, [facility] [address] [id number] [address] [place] [address], [place] [address] Jul, [facility] [address] [id number] [address] [place] [address], [place] [address] Jul, [facility] [address] [id number] [address] [place] [address], [place] [address] Jul, [facility] [address] [id number] [address] [place] [address] Jul, [facility] [address] [id number] [address] [place] [address], [place] [address] Jul, [facility] [address] [id number] [address] [place] [address] Jul, [facility] [address] [id number] [address] [place] [address] Jul, [facility] [address] [id number] [address] [place] [address] Jul, [facility] [address] [id number] [address] [place] [address], [place] [address] Jul, [facility] [address] [id number] [address] [place] [address] Jul, [facility] [address] [id number] [address] [place] [address] Jul, [facility] [address] [id number] [address] [place] [address] Jun, [facility] [address] [id number] [address] [place] [address] Jun, [facility] [address] [id number] [address] [place] [address] 29 Jun, 2013 [facility] [address] [id number] [address] [place] [address] Jun, [facility] [address] [id number] [address] [place] [address] Jun, [facility] [address] [id number] [address] [place] [address] Jun, [facility] [address] [id number] [address] [place] [address] Jun, [facility] [address] [id number] [address] [place] [address] Jun, [facility] [address] [id number] [facility] [address] 25 May, 2012 [facility] [address] [id number] [address] [place] [address], [place] [address] 18 May, 2013 [facility] [address] [id number] [address] [place] [address], [place] [address] 11 May, 2012 [facility] [address] [id number] [address] [place] [address], [place] [address] 10 May, 2012 [facility] [address] [id number] [address] [place] [address], [place] [address] 09 May, 2013 [facility] [address] [id number] [address] [place] [address], [place] [address] 04 May, 2013 [facility] [address] [id number] [address] [place] [address], [place] [address] 30 Apr, 2013 [facility] [address] [id number] [address] [place] [address], [place] [address] Apr, [facility] [address] [id number] [address] [place] [address], [place] [address] Apr, [facility] [address] [id number] [address] [place] [address], [place] [address] Apr, [facility] [address] [id number] [address] [place] [address], [place] [address] Apr, [facility] [address] [id number] [address] [place] [address], [place] [address] Mar, [facility] [address] [id number] [address] [place] [address], [place] [address] Mar, [facility] [address] [id number] [address] [place] [address], [place] [address] Mar, [facility] [address] [id number] [address] [place] [address], [place] [address] 24 Feb, 2013 [facility] [address] [id number] [address] [place] [address], [place] [address] Feb, [facility] [address] [facility] [id number] [address] [place] [address] Feb, [facility] [address] [facility] [id number] [address] [place] [address] January, [facility] [address] [facility] [id number] [address] [place] [address] January, [facility]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
--- OUTSIDE RECORDS SUMMARY | 2020-03-26 15:35 | XMS REPORT | Continuity of Care Document ---
Author Organization Unknown Address Unknown Phone Unavailable Allergies Active Description Code Type Severity Reaction Onset Reported/Identified Relationship to Patient Clinical Status Yes Compazine Drug Allergy N/A N/A 03/20/2013 Yes venlafaxine 37.5 mg tablet Drug Allergy N/A N/A 05/26/2013 Yes prochlorperazine [id number] Drug Allergy Unknown N/A 11/29/2019 Medications There is no data. Problems Date Dx Coded Attending Type Code Diagnosis Diagnosed By 11/30/2012 296.89 MO BIPOLAR II 11/30/2012 296.89 MO BIPOLAR II 11/30/2012 296.89 MO BIPOLAR II 11/30/2012 296.89 MO BIPOLAR II 11/30/2012 296.89 MO BIPOLAR II 11/30/2012 296.89 MO BIPOLAR II 11/30/2012 296.89 MO BIPOLAR II 11/30/2012 296.89 MO BIPOLAR II 11/30/2012 296.89 MO BIPOLAR II 11/30/2012 296.89 MO BIPOLAR II 11/30/2012 296.89 MO BIPOLAR II 11/30/2012 PEMA YOUNGER PSYD L 296.89 MO BIPOLAR II 11/30/2012 PEMA YOUNGER PSYD ANN L 296.89 MO BIPOLAR II 11/30/2012 PEMA YOUNGER PSYD L 296.89 MO BIPOLAR II 11/30/2012 PEMA YOUNGER PSYD ANN L 296.89 MO BIPOLAR II 11/30/2012 PEMA YOUNGER PSYD L 296.89 MO BIPOLAR II 11/30/2012 PEMA YOUNGER PSYD L 296.89 MO BIPOLAR II 11/30/2012 PEMA YOUNGER PSYD L 296.89 MO BIPOLAR II 11/30/2012 PEMA YOUNGER PSYD L 296.89 MO BIPOLAR II 11/30/2012 PEMA YOUNGER PSYD L 296.89 MO BIPOLAR II 11/30/2012 PEMA YOUNGER PSYD L 296.89 MO BIPOLAR II 11/30/2012 SARMAD SEGURA APRN 296.89 MO BIPOLAR II 11/30/2012 PEMA YOUNGER PSYD ANN L 296.89 MO BIPOLAR II 11/30/2012 PEMA YOUNGER PSYD ANN L 296.89 MO BIPOLAR II 11/30/2012 PEMA YOUNGER PSYD ANN L 296.89 MO BIPOLAR II 11/30/2012 PEMA YOUNGER PSYD ANN L 296.89 MO BIPOLAR II 11/30/2012 CINDY CHAPMAN ISAURO JESSE 296.89 MO BIPOLAR II 11/30/2012 PEMA YOUNGER PSYD ANN L 296.89 MO BIPOLAR II 11/30/2012 PEMA YOUNGER PSYD ANN L 296.89 MO BIPOLAR II 11/30/2012 PEMA YOUNGER PSYD ANN L 296.89 MO BIPOLAR II 11/30/2012 PEMA YOUNGER PSYD ANN L 296.89 MO BIPOLAR II 11/30/2012 PEMA YOUNGER PSYD ANN L 296.89 MO BIPOLAR II 11/30/2012 PEMA YOUNGER PSYD ANN L 296.89 MO BIPOLAR II 11/30/2012 PEMA YOUNGER PSYD ANN L 296.89 MO BIPOLAR II 11/30/2012 PEMA YOUNGER PSYD ANN L 296.89 MO BIPOLAR II 11/30/2012 PEMA YOUNGER PSYD ANN L 296.89 MO BIPOLAR II 11/30/2012 PEMA YOUNGER PSYD ANN L 296.89 MO BIPOLAR II 11/30/2012 CINDY CHAPMAN ISAURO JESSE 296.89 MO BIPOLAR II 11/30/2012 PEMA YOUNGER PSYD ANN L 296.89 MO BIPOLAR II 11/30/2012 PEMA YOUNGER PSYD ANN L 296.89 MO BIPOLAR II 11/30/2012 PEMA YOUNGER PSYD ANN L 296.89 MO BIPOLAR II 11/30/2012 PEMA YOUNGER PSYD ANN L 296.89 MO BIPOLAR II 11/30/2012 PEMA YOUNGER PSYD ANN L 296.89 MO BIPOLAR II 11/30/2012 PEMA YOUNGER PSYD ANN L 296.89 MO BIPOLAR II 11/30/2012 PEMA YOUNGER PSYD ANN L 296.89 MO BIPOLAR II 11/30/2012 PEMA YOUNGER PSYD ANN L 296.89 MO BIPOLAR II 11/30/2012 PEMA YOUNGER PSYD ANN L 296.89 MO BIPOLAR II 11/30/2012 PEMA YOUNGER PSYD ANN L 296.89 MO BIPOLAR II 11/30/2012 PEMA YOUNGER PSYD ANN L 296.89 MO BIPOLAR II 11/30/2012 PEMA YOUNGER PSYD ANN L 296.89 MO BIPOLAR II 11/30/2012 PEMA YOUNGER PSYD ANN L 296.89 MO BIPOLAR II 11/30/2012 PEMA YOUNGER PSYD ANN L 296.89 MO BIPOLAR II 11/30/2012 PEMA YOUNGER PSYD ANN L 296.89 MO BIPOLAR II 11/30/2012 PEMA YOUNGER PSYD ANN L 296.89 MO BIPOLAR II 11/30/2012 PEMA YOUNGER PSYD ANN L 296.89 MO BIPOLAR II 11/30/2012 PEMA YOUNGER PSYD ANN L 296.89 MO BIPOLAR II 11/30/2012 PEMA YOUNGER PSYD ANN L 296.89 MO BIPOLAR II 11/30/2012 PEMA YOUNGER PSYD ANN L 296.89 MO BIPOLAR II 11/30/2012 PEMA YOUNGER PSYD ANN L 296.89 MO BIPOLAR II 11/30/2012 PEMA YOUNGER PSYD ANN L 296.89 MO BIPOLAR II 11/30/2012 PEMA YOUNGER PSYD ANN L 296.89 MO BIPOLAR II 11/30/2012 PEMA YOUNGER PSYD ANN L 296.89 MO BIPOLAR II 11/30/2012 PEMA YOUNGER PSYD ANN L 296.89 MO BIPOLAR II 11/30/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, 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 296 .89 MO BIPOLAR II 11/30/2012 PEMA YOUNGER PSYD ANN L 296.89 MO BIPOLAR II 11/30/2012 PEMA YOUNGER PSYD ANN L 296.89 MO BIPOLAR II 11/30/2012 PEMA YOUNGER PSYD ANN L 296.89 MO BIPOLAR II 11/30/2012 PEMA YOUNGER PSYD ANN L 296.89 MO BIPOLAR II 11/30/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, 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 296 .89 MO BIPOLAR II 11/30/2012 PEMA YOUNGER PSYD ANN L 296.89 MO BIPOLAR II 12/13/2012 309.81 AN PTSD 12/13/2012 309.81 AN PTSD 12/13/2012 309.81 AN PTSD 12/13/2012 309.81 AN PTSD 12/13/2012 309.81 AN PTSD 12/13/2012 309.81 AN PTSD 12/13/2012 309.81 AN PTSD 12/13/2012 309.81 AN PTSD 12/13/2012 309.81 AN PTSD 12/13/2012 309.81 AN PTSD 12/13/2012 PEMA YOUNGER PSYD ANN L 309.81 AN PTSD 12/13/2012 PEMA YOUNGER PSYD ANN L 309.81 AN PTSD 12/13/2012 PEMA YOUNGER PSYD ANN L 309.81 AN PTSD 12/13/2012 PEMA YOUNGER PSYD ANN L 309.81 AN PTSD 12/13/2012 PEMA YOUNGER PSYD ANN L 309.81 AN PTSD 12/13/2012 PEMA YOUNEGR PSYD ANN L 309.81 AN PTSD 12/13/2012 PEMA YOUNGER PSYD ANN L 309.81 AN PTSD 12/13/2012 PEMA YOUNGER PSYD ANN L 309.81 AN PTSD 12/13/2012 PEMA YOUNGER PSYD ANN L 309.81 AN PTSD 12/13/2012 PEMA YOUNGER PSYD ANN L 309.81 AN PTSD 12/13/2012 SARMAD SEGURA APRN 309.81 AN PTSD 12/13/2012 PEMA YOUNGER PSYD ANN L 309.81 AN PTSD 12/13/2012 PEMA YOUNGER PSYD ANN L 309.81 AN PTSD 12/13/2012 PEMA YOUNGER PSYD ANN L 309.81 AN PTSD 12/13/2012 PEMA YOUNGER PSYD ANN L 309.81 AN PTSD 12/13/2012 ISAURO WHITE APRN 309.81 AN PTSD 12/13/2012 PEMA YOUNGER PSYD ANN L 309.81 AN PTSD 12/13/2012 PEMA YOUNGER PSYD ANN L 309.81 AN PTSD 12/13/2012 PEMA YOUNGER PSYD ANN L 309.81 AN PTSD 12/13/2012 PEMA YOUNGER PSYD ANN L 309.81 AN PTSD 12/13/2012 PEMA YOUNGER PSYD ANN L 309.81 AN PTSD 12/13/2012 PEMA YOUNGER PSYD ANN L 309.81 AN PTSD 12/13/2012 PEMA YOUNGER PSYD ANN L 309.81 AN PTSD 12/13/2012 PEMA YOUNGER PSYD ANN L 309.81 AN PTSD 12/13/2012 PEMA YOUNGER PSYD ANN L 309.81 AN PTSD 12/13/2012 PEMA YOUNGER PSYD ANN L 309.81 AN PTSD 12/13/2012 CINDY CHAPMAN ISAURO JESSE 309.81 AN PTSD 12/13/2012 PEMA YOUNGER PSYD ANN L 309.81 AN PTSD 12/13/2012 PEMA YOUNGER PSYD ANN L 309.81 AN PTSD 12/13/2012 PEMA YOUNGER PSYD ANN L 309.81 AN PTSD 12/13/2012 PEMA YOUNGER PSYD ANN L 309.81 AN PTSD 12/13/2012 PEMA YOUNGER PSYD ANN L 309.81 AN PTSD 12/13/2012 PEMA YOUNGER PSYD ANN L 309.81 AN PTSD 12/13/2012 PEMA YOUNGER PSYD ANN L 309.81 AN PTSD 12/13/2012 PEMA YOUNGER PSYD ANN L 309.81 AN PTSD 12/13/2012 PEMA YOUNGER PSYD ANN L 309.81 AN PTSD 12/13/2012 PEMA YOUNGER PSYD ANN L 309.81 AN PTSD 12/13/2012 PEMA YOUNGER PSYD ANN L 309.81 AN PTSD 12/13/2012 PEMA YOUNGER PSYD ANN L 309.81 AN PTSD 12/13/2012 PEMA YOUNGER PSYD ANN L 309.81 AN PTSD 12/13/2012 PEMA YOUNGER PSYD ANN L 309.81 AN PTSD 12/13/2012 PEMA YOUNGER PSYD ANN L 309.81 AN PTSD 12/13/2012 PEMA YOUNGER PSYD ANN L 309.81 AN PTSD 12/13/2012 PEMA YOUNGER PSYD ANN L 309.81 AN PTSD 12/13/2012 PEMA YOUNGER PSYD ANN L 309.81 AN PTSD 12/13/2012 PEMA YOUNGER PSYD ANN L 309.81 AN PTSD 12/13/2012 PEMA YOUNGER PSYD ANN L 309.81 AN PTSD 12/13/2012 PEMA YOUNGER PSYD ANN L 309.81 AN PTSD 12/13/2012 PEMA YOUNGER PSYD ANN L 309.81 AN PTSD 12/13/2012 PEMA YOUNGER PSYD ANN L 309.81 AN PTSD 12/13/2012 PEMA YOUNGER PSYD ANN L 309.81 AN PTSD 12/13/2012 PEMA YOUNGER PSYD ANN L 309.81 AN PTSD 12/13/2012 GENARENNY CHAPMAN SONAL 309 .81 AN PTSD 12/13/2012 PEMA YOUNGER PSYD ANN L 309.81 AN PTSD 12/13/2012 PEMA YOUNGER PSYD ANN L 309.81 AN PTSD 12/13/2012 PEMA YOUNGER PSYD ANN L 309.81 AN PTSD 12/13/2012 PEMA YOUNGER PSYD ANN L 309.81 AN PTSD 12/13/2012 GENARENNY CHAPMAN SONAL 309 .81 AN PTSD 12/13/2012 PEMA YOUNGER PSYD ANN L 309.81 AN PTSD 05/04/2013 296.32 MO DEPRESSIVE RECURRENT MODERATE 05/04/2013 296.32 MO DEPRESSIVE RECURRENT MODERATE 05/04/2013 296.32 MO DEPRESSIVE RECURRENT MODERATE 05/04/2013 296.32 MO DEPRESSIVE RECURRENT MODERATE 05/04/2013 PEMA YOUNGER PSYD ANN L 296.32 MO DEPRESSIVE RECURRENT MODERATE 05/04/2013 PEMA YOUNGER PSYD ANN L 296.32 MO DEPRESSIVE RECURRENT MODERATE 05/04/2013 PEMA YOUNGER PSYD ANN L 296.32 MO DEPRESSIVE RECURRENT MODERATE 05/04/2013 PEMA YOUNGER PSYD ANN L 296.32 MO DEPRESSIVE RECURRENT MODERATE 05/04/2013 PEMA YOUNGER PSYD ANN L 296.32 MO DEPRESSIVE RECURRENT MODERATE 05/04/2013 PEMA YOUNGER PSYD ANN L 296.32 MO DEPRESSIVE RECURRENT MODERATE 05/04/2013 PEMA YOUNGER PSYD ANN L 296.32 MO DEPRESSIVE RECURRENT MODERATE 05/04/2013 PEMA YOUNGER PSYD ANN L 296.32 MO DEPRESSIVE RECURRENT MODERATE 05/04/2013 PEMA YOUNGER PSYD ANN L 296.32 MO DEPRESSIVE RECURRENT MODERATE 05/04/2013 PEMA YOUNGER PSYD ANN L 296.32 MO DEPRESSIVE RECURRENT MODERATE 05/04/2013 SARMAD SEGURA APRN 296.32 MO DEPRESSIVE RECURRENT MODERATE 05/04/2013 PEMA YOUNGER PSYD ANN L 296.32 MO DEPRESSIVE RECURRENT MODERATE 05/04/2013 PEMA YOUNGER PSYD ANN L 296.32 MO DEPRESSIVE RECURRENT MODERATE 05/04/2013 PEMA YOUNGER PSYD ANN L 296.32 MO DEPRESSIVE RECURRENT MODERATE 05/04/2013 PEMA YOUNGER PSYD ANN L 296.32 MO DEPRESSIVE RECURRENT MODERATE 05/04/2013 CINDY CHAPMANISAURO 296.32 MO DEPRESSIVE RECURRENT MODERATE 05/04/2013 PEMA YOUNGER PSYD ANN L 296.32 MO DEPRESSIVE RECURRENT MODERATE 05/04/2013 PEMA YOUNGER PSYD ANN L 296.32 MO DEPRESSIVE RECURRENT MODERATE 05/04/2013 PEMA YOUNGER PSYD ANN L 296.32 MO DEPRESSIVE RECURRENT MODERATE 05/04/2013 PEMA YOUNGER PSYD ANN L 296.32 MO DEPRESSIVE RECURRENT MODERATE 05/04/2013 PEMA YOUNGER PSYD ANN L 296.32 MO DEPRESSIVE RECURRENT MODERATE 05/04/2013 PEMA YOUNGER PSYD ANN L 296.32 MO DEPRESSIVE RECURRENT MODERATE 05/04/2013 PEMA YOUNGER PSYD ANN L 296.32 MO DEPRESSIVE RECURRENT MODERATE 05/04/2013 PEMA YOUNGER PSYD ANN L 296.32 MO DEPRESSIVE RECURRENT MODERATE 05/04/2013 PEMA YOUNGER PSYD ANN L 296.32 MO DEPRESSIVE RECURRENT MODERATE 05/04/2013 PEMA YOUNGER PSYD ANN L 296.32 MO DEPRESSIVE RECURRENT MODERATE 05/04/2013 CINDY CHAPMAN ISAURO MOLINA 296.32 MO DEPRESSIVE RECURRENT MODERATE 05/04/2013 PEMA YOUNGER PSYD ANN L 296.32 MO DEPRESSIVE RECURRENT MODERATE 05/04/2013 PEMA YOUNGER PSYD ANN L 296.32 MO DEPRESSIVE RECURRENT MODERATE 05/04/2013 PEMA YOUNGER PSYD ANN L 296.32 MO DEPRESSIVE RECURRENT MODERATE 05/04/2013 PEMA YOUNGER PSYD ANN L 296.32 MO DEPRESSIVE RECURRENT MODERATE 05/04/2013 PEMA YOUNGER PSYD ANN L 296.32 MO DEPRESSIVE RECURRENT MODERATE 05/04/2013 PEMA YOUNGER PSYD ANN L 296.32 MO DEPRESSIVE RECURRENT MODERATE 05/04/2013 PEMA YOUNGER PSYD ANN L 296.32 MO DEPRESSIVE RECURRENT MODERATE 05/04/2013 PEMA YOUNGER PSYD ANN L 296.32 MO DEPRESSIVE RECURRENT MODERATE 05/04/2013 PEMA YOUNGER PSYD ANN L 296.32 MO DEPRESSIVE RECURRENT MODERATE 05/04/2013 PEMA YOUNGER PSYD ANN L 296.32 MO DEPRESSIVE RECURRENT MODERATE 05/04/2013 PEMA YOUNGER PSYD ANN L 296.32 MO DEPRESSIVE RECURRENT MODERATE 05/04/2013 PEMA YOUNGER PSYD ANN L 296.32 MO DEPRESSIVE RECURRENT MODERATE 05/04/2013 PEMA YOUNGER PSYD ANN L 296.32 MO DEPRESSIVE RECURRENT MODERATE 05/04/2013 PEMA YOUNGER PSYD ANN L 296.32 MO DEPRESSIVE RECURRENT MODERATE 05/04/2013 PEMA YOUNGER PSYD ANN L 296.32 MO DEPRESSIVE RECURRENT MODERATE 05/04/2013 PEMA YOUNGER PSYD ANN L 296.32 MO DEPRESSIVE RECURRENT MODERATE 05/04/2013 PEMA YOUNGER PSYD ANN L 296.32 MO DEPRESSIVE RECURRENT MODERATE 05/04/2013 PEMA YOUNGER PSYD ANN L 296.32 MO DEPRESSIVE RECURRENT MODERATE 05/04/2013 PEMA YOUNGER PSYD ANN L 296.32 MO DEPRESSIVE RECURRENT MODERATE 05/04/2013 PEMA YOUNGER PSYD ANN L 296.32 MO DEPRESSIVE RECURRENT MODERATE 05/04/2013 PEMA YOUNGER PSYD ANN L 296.32 MO DEPRESSIVE RECURRENT MODERATE 05/04/2013 PEMA YOUNGER PSYD ANN L 296.32 MO DEPRESSIVE RECURRENT MODERATE 05/04/2013 PEMA YOUNGER PSYD ANN L 296.32 MO DEPRESSIVE RECURRENT MODERATE 05/04/2013 PEMA YOUNGER PSYD ANN L 296.32 MO DEPRESSIVE RECURRENT MODERATE 05/04/2013 PEMA YOUNGER PSYD ANN L 296.32 MO DEPRESSIVE RECURRENT MODERATE 05/04/2013 [employer]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, 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 296 .32 MO DEPRESSIVE RECURRENT MODERATE 05/04/2013 PEMA YOUNGER PSYD ANN L 296.32 MO DEPRESSIVE RECURRENT MODERATE 05/04/2013 PEMA YOUNGER PSYD ANN L 296.32 MO DEPRESSIVE RECURRENT MODERATE 05/04/2013 PEMA YOUNGER PSYD ANN L 296.32 MO DEPRESSIVE RECURRENT MODERATE 05/04/2013 PEMA YOUNGER PSYD ANN L 296.32 MO DEPRESSIVE RECURRENT MODERATE 05/04/2013 SONAL AVERY APRN 296 .32 MO DEPRESSIVE RECURRENT MODERATE 05/04/2013 PEMA YOUNGER PSYD ANN L 296.32 MO DEPRESSIVE RECURRENT MODERATE 05/26/2013 PEMA YOUNGER PSYD ANN L 300.23 AN SOCIAL PHOBIA 05/26/2013 PEMA YOUNGER PSYD ANN L 300.23 AN SOCIAL PHOBIA 05/26/2013 PEMA YOUNGER PSYD ANN L 300.23 AN SOCIAL PHOBIA 05/26/2013 PEMA YOUNGER PSYD ANN L 300.23 AN SOCIAL PHOBIA 05/26/2013 PEMA YOUNGER PSYD ANN L 300.23 AN SOCIAL PHOBIA 05/26/2013 PEMA YOUNGER PSYD ANN L 300.23 AN SOCIAL PHOBIA 05/26/2013 PEMA YOUNGER PSYD ANN L 300.23 AN SOCIAL PHOBIA 05/26/2013 PEMA YOUNGER PSYD ANN L 300.23 AN SOCIAL PHOBIA 05/26/2013 PEMA YOUNGER PSYD ANN L 300.23 AN SOCIAL PHOBIA 05/26/2013 PEMA YOUNGER PSYD ANN L 300.23 AN SOCIAL PHOBIA 05/26/2013 SARMAD SEGURA APRN 300.23 AN SOCIAL PHOBIA 05/26/2013 PEMA YOUNGER PSYD ANN L 300.23 AN SOCIAL PHOBIA 05/26/2013 PEMA YOUNGER PSYD ANN L 300.23 AN SOCIAL PHOBIA 05/26/2013 PEMA YOUNGER PSYD ANN L 300.23 AN SOCIAL PHOBIA 05/26/2013 PEMA YOUNGER PSYD ANN L 300.23 AN SOCIAL PHOBIA 05/26/2013 ISAURO WHITE APRN 300.23 AN SOCIAL PHOBIA 05/26/2013 PEMA YOUNGER PSYD ANN L 300.23 AN SOCIAL PHOBIA 05/26/2013 ZAMZAMEARY PSRIKKI, ANU L 300.23 AN SOCIAL PHOBIA 05/26/2013 LUIS FY PSRIKKI, ANU L 300.23 AN SOCIAL PHOBIA 05/26/2013 MCCLEEARY PSYD, ANU L 300.23 AN SOCIAL PHOBIA 05/26/2013 AREN VELOZ, ANU L 300.23 AN SOCIAL PHOBIA 05/26/2013 MCCADAM PSRIKKI, ANU L 300.23 AN SOCIAL PHOBIA 05/26/2013 ZAMZAMEARY PSYD, ANU L 300.23 AN SOCIAL PHOBIA 05/26/2013 AREN VELOZ, ANU L 300.23 AN SOCIAL PHOBIA 05/26/2013 PEMA YOUNGER PSYD ANN L 300.23 AN SOCIAL PHOBIA 05/26/2013 PEMA YOUNGER PSYD ANN L 300.23 AN SOCIAL PHOBIA 05/26/2013 ISAURO WHITE APRN JESSE 300.23 AN SOCIAL PHOBIA 05/26/2013 PEMA YOUNGER PSYD ANN L 300.23 AN SOCIAL PHOBIA 05/26/2013 AREN VELOZ, ANU L 300.23 AN SOCIAL PHOBIA 05/26/2013 PEMA YOUNGER PSYD ANN L 300.23 AN SOCIAL PHOBIA 05/26/2013 PEMA YOUNGER PSYD ANN L 300.23 AN SOCIAL PHOBIA 05/26/2013 PEMA YOUNGER PSYD ANN L 300.23 AN SOCIAL PHOBIA 05/26/2013 PEMA YOUNGER PSYD ANN L 300.23 AN SOCIAL PHOBIA 05/26/2013 ZAMZAMEARY BERNARDINOYD, ANU L 300.23 AN SOCIAL PHOBIA 05/26/2013 ZAMZAMEARToan VELOZ, ANU L 300.23 AN SOCIAL PHOBIA 05/26/2013 PEMA YOUNGER PSYD ANN L 300.23 AN SOCIAL PHOBIA 05/26/2013 PEMA YOUNGER PSYD ANN L 300.23 AN SOCIAL PHOBIA 05/26/2013 PEMA YOUNGER PSYD ANN L 300.23 AN SOCIAL PHOBIA 05/26/2013 PEMA YOUNGER PSYD ANN L 300.23 AN SOCIAL PHOBIA 05/26/2013 PEMA YOUNGER PSYD ANN L 300.23 AN SOCIAL PHOBIA 05/26/2013 PEMA YOUNGER PSYD ANN L 300.23 AN SOCIAL PHOBIA 05/26/2013 PEMA YOUNGER PSYD ANN L 300.23 AN SOCIAL PHOBIA 05/26/2013 PEMA YOUNGER PSYD ANN L 300.23 AN SOCIAL PHOBIA 05/26/2013 PEMA YOUNGER PSYD ANN L 300.23 AN SOCIAL PHOBIA 05/26/2013 PEMA YOUNGER PSYD ANN L 300.23 AN SOCIAL PHOBIA 05/26/2013 PEMA YOUNGER PSYD ANN L 300.23 AN SOCIAL PHOBIA 05/26/2013 PEMA YOUNGER PSYD ANN L 300.23 AN SOCIAL PHOBIA 05/26/2013 PEMA YOUNGER PSYD ANN L 300.23 AN SOCIAL PHOBIA 05/26/2013 PEMA YOUNGER PSYD ANN L 300.23 AN SOCIAL PHOBIA 05/26/2013 PEMA YOUNGER PSYD ANN L 300.23 AN SOCIAL PHOBIA 05/26/2013 PEMA YOUNGER PSYD ANN L 300.23 AN SOCIAL PHOBIA 05/26/2013 PEMA YOUNGER PSYD ANN L 300.23 AN SOCIAL PHOBIA 05/26/2013 GE[employer]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, 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 300 .23 AN SOCIAL PHOBIA 05/26/2013 PEMA YOUNGER PSYD ANN L 300.23 AN SOCIAL PHOBIA 05/26/2013 PEMA YOUNGER PSYD ANN L 300.23 AN SOCIAL PHOBIA 05/26/2013 PEMA YOUNGER PSYD ANN L 300.23 AN SOCIAL PHOBIA 05/26/2013 PEMA YOUNGER PSYD ANN L 300.23 AN SOCIAL PHOBIA 05/26/2013 GENA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, 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 300 .23 AN SOCIAL PHOBIA 05/26/2013 PEMA YOUNGER PSYD ANN L 300.23 AN SOCIAL PHOBIA 02/06/2014 PEMA YOUNGER PSYD ANN L 296.80 MO BIPOLAR NOS 02/06/2014 PEMA YOUNGER PSYD ANN L 296.80 MO BIPOLAR NOS 02/06/2014 PEMA YOUNGER PSYD ANN L 296.80 MO BIPOLAR NOS 02/06/2014 PEMA YOUNGER PSYD ANN L 296.80 MO BIPOLAR NOS 02/06/2014 PEMA YOUNGER PSYD ANN L 296.80 MO BIPOLAR NOS 02/06/2014 PEMA YOUNGER PSYD ANN L 296.80 MO BIPOLAR NOS 02/06/2014 PEMA YOUNGER PSYD ANN L 296.80 MO BIPOLAR NOS 02/06/2014 PEMA YOUNGER PSYD ANN L 296.80 MO BIPOLAR NOS 02/06/2014 PEMA YOUNGER PSYD ANN L 296.80 MO BIPOLAR NOS 02/06/2014 PEMA YOUNGER PSYD ANN L 296.80 MO BIPOLAR NOS 02/06/2014 PEMA YOUNGER PSYD ANN L 296.80 MO BIPOLAR NOS 02/06/2014 PEMA YOUNGER PSYD ANN L 296.80 MO BIPOLAR NOS 02/06/2014 PEMA YOUNGER PSYD ANN L 296.80 MO BIPOLAR NOS 02/06/2014 PEMA YOUNGER PSYD ANN L 296.80 MO BIPOLAR NOS 02/06/2014 PEMA YOUNGER PSYD ANN L 296.80 MO BIPOLAR NOS 02/06/2014 PEMA YOUNGER PSYD ANN L 296.80 MO BIPOLAR NOS 02/06/2014 PEMA YOUNGER PSYD ANN L 296.80 MO BIPOLAR NOS 02/06/2014 PEMA YOUNGER PSYD ANN L 296.80 MO BIPOLAR NOS 02/06/2014 PEMA YOUNGER PSYD ANN L 296.80 MO BIPOLAR NOS 02/06/2014 PEMA YOUNGER PSYD ANN L 296.80 MO BIPOLAR NOS 02/06/2014 PEMA YOUNGER PSYD ANN L 296.80 MO BIPOLAR NOS 02/06/2014 PEMA YOUNGER PSYD ANN L 296.80 MO BIPOLAR NOS 02/06/2014 PEMA YOUNGER PSYD ANN L 296.80 MO BIPOLAR NOS 02/06/2014 PEMA YOUNGER PSYD ANN L 296.80 MO BIPOLAR NOS 02/06/2014 PEMA YOUNGER PSYD ANN L 296.80 MO BIPOLAR NOS 02/06/2014 SONAL AVERY APRN 296 .80 MO BIPOLAR NOS 02/06/2014 PEMA YOUNGER PSYD ANN L 296.80 MO BIPOLAR NOS 02/06/2014 PEMA YOUNGER PSYD ANN L 296.80 MO BIPOLAR NOS 02/06/2014 PEMA YOUNGER PSYD ANN L 296.80 MO BIPOLAR NOS 02/06/2014 PEMA YOUNGER PSYD ANN L 296.80 MO BIPOLAR NOS 02/06/2014 SONAL AVERY APRN 296 .80 MO BIPOLAR NOS 02/06/2014 PEMA YOUNGER PSYD ANN L 296.80 MO BIPOLAR NOS 03/26/2014 PEMA YOUNGER PSYD ANN L 301.9 PD PERS DIS NOS 03/26/2014 PEMA YOUNGER PSYD ANN L 301.9 PD PERS DIS NOS 03/26/2014 PEMA YOUNGER PSYD ANN L 301.9 PD PERS DIS NOS 03/26/2014 PEMA YOUNGER PSYD ANN L 301.9 PD PERS DIS NOS 03/26/2014 PEMA YOUNGER PSYD ANN L 301.9 PD PERS DIS NOS 03/26/2014 PEMA YOUNGER PSYD ANN L 301.9 PD PERS DIS NOS 03/26/2014 PEMA YOUNGER PSYD ANN L 301.9 PD PERS DIS NOS 03/26/2014 PEMA YOUNGER PSYD ANN L 301.9 PD PERS DIS NOS 03/26/2014 PEMA YOUNGER PSYD ANN L 301.9 PD PERS DIS NOS 03/26/2014 PEMA YOUNGER PSYD ANN L 301.9 PD PERS DIS NOS 03/26/2014 PEMA YOUNGER PSYD ANN L 301.9 PD PERS DIS NOS 03/26/2014 PEMA YOUNGER PSYD ANN L 301.9 PD PERS DIS NOS 03/26/2014 PEMA YOUNGER PSYD ANN L 301.9 PD PERS DIS NOS 03/26/2014 PEMA YOUNGER PSYD ANN L 301.9 PD PERS DIS NOS 03/26/2014 PEMA YOUNGER PSYD ANN L 301.9 PD PERS DIS NOS 03/26/2014 PEMA YOUNGER PSYD ANN L 301.9 PD PERS DIS NOS 03/26/2014 PEMA YOUNGER PSYD ANN L 301.9 PD PERS DIS NOS 03/26/2014 PEMA YOUNGER PSYD ANN L 301.9 PD PERS DIS NOS 03/26/2014 PEMA YOUNGER PSYD ANN L 301.9 PD PERS DIS NOS 03/26/2014 PEMA YOUNGER PSYD ANN L 301.9 PD PERS DIS NOS 03/26/2014 PEMA YOUNGER PSYD ANN L 301.9 PD PERS DIS NOS 03/26/2014 SONAL AVERY APRN 301 .9 PD PERS DIS NOS 03/26/2014 PEMA YOUNGER PSYD ANN L 301.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 PERS DIS NOS 03/26/2014 PEMA YOUNGER PSYD ANN L 301.9 PD PERS DIS NOS 03/26/2014 PEMA YOUNGER PSYD ANN L 301.9 PD PERS DIS NOS 03/26/2014 PEMA YOUNGER PSYD ANN L 301.9 PD PERS DIS NOS 03/26/2014 SONAL AVERY APRN 301 .9 PD PERS DIS NOS 03/26/2014 PEMA YOUNGER PSYD ANN L 301.9 PD PERS DIS NOS 09/28/2014 SONAL AVERY APRN 296 .52 MO BIPOLAR I DEPRESSED MODERATE 09/28/2014 PEMA YOUNGER PSYD ANN L 296.52 MO BIPOLAR I DEPRESSED MODERATE 09/28/2014 PEMA YOUNGER PSYD ANN L 296.52 MO BIPOLAR I DEPRESSED MODERATE 09/28/2014 PEMA YOUNGER PSYD ANN L 296.52 MO BIPOLAR I DEPRESSED MODERATE 09/28/2014 PEMA YOUNGER PSYD ANN L 296.52 MO BIPOLAR I DEPRESSED MODERATE 09/28/2014 SONAL AVERY APRN 296 .52 MO BIPOLAR I DEPRESSED MODERATE 09/28/2014 PEMA YOUNGER PSYD ANN L 296.52 MO BIPOLAR I DEPRESSED MODERATE 12/06/2014 PEMA YOUNGER PSYD ANN L 300.00 AN ANXIETY UNSPEC 12/06/2014 SONAL AVERY APRN 300 .00 AN ANXIETY UNSPEC 12/06/2014 PEMA YOUNGER PSYD ANN L 300.00 AN ANXIETY UNSPEC 10/04/2019 ANI VARMA DO Ot M06.811 OTHER SPECIFIED RHEUMATOID ARTHRITIS, RI 10/06/2019 ANI VARMA DO Ot M06.811 OTHER SPECIFIED RHEUMATOID ARTHRITIS, RI 11/29/2019 KLEVER KEBEDE MD Ot M25.5 52 PAIN IN LEFT HIP 11/29/2019 KLEVER KEBEDE MD Ot R40.2142 COMA SCALE, EYES OPEN, SPONTANEOUS, EMR 11/29/2019 YANDY MAE, KLEVER Hoffmann Ot R40.2252 COMA SCALE, BEST VERBAL RESPONSE, ORIENT 11/29/2019 KLEVER KEBEDE MD Ot R40.2362 COMA SCALE, BEST MOTOR RESPONSE, OBEYS C 11/29/2019 KLEVER KEBEDE MD Ot S72.042A DISP FX OF BASE OF NECK OF LEFT FEMUR, I 11/29/2019 KLEVER KEBEDE MD Ot W01.0XXA FALL SAME LEV FROM SLIP/TRIP W/O STRIKE 11/29/2019 KLEVER KEBEDE MD Ot Y92.[address] IN [facility] 11/29/2019 KLEVER KEBEDE MD Ot Z85.4 1 PERSONAL HISTORY OF MALIGNANT NEOPLASM O 11/29/2019 KLEVER KEBEDE MD, Ot Z88.8 ALLERGY STATUS TO OTH DRUG/MEDS/BIOL SUB 12/04/2019 KLEVER KEBEDE MD Ot M25.5 52 PAIN IN LEFT HIP 12/04/2019 YANDY MAE, KLEVER Hoffmann Ot R40.2142 COMA SCALE, EYES OPEN, SPONTANEOUS, EMR 12/04/2019 YANDY MAE, KLEVER Hoffmann Ot R40.2252 COMA SCALE, BEST VERBAL RESPONSE, ORIENT 12/04/2019 KLEVER KEBEDE MD Ot R40.2362 COMA SCALE, BEST MOTOR RESPONSE, OBEYS C 12/04/2019 KLEVER KEBEDE MD Ot S72.042A DISP FX OF BASE OF NECK OF LEFT FEMUR, I 12/04/2019 KLEVER KEBEDE MD Ot W01.0XXA FALL SAME LEV FROM SLIP/TRIP W/O STRIKE 12/04/2019 KLEVER KEBEDE MD Ot Y92.[address] [facility] 12/04/2019 KLEVER KEBEDE MD, Ot Z85.4 1 PERSONAL HISTORY OF MALIGNANT NEOPLASM O 12/04/2019 KLEVER KEBEDE MD, Ot Z88.8 ALLERGY STATUS TO OTH DRUG/MEDS/BIOL SUB 12/12/2019 SHELIA DAVID DO Ot A41 .9 SEPSIS, UNSPECIFIED ORGANISM 12/12/2019 SHELIA DAVID DO Ot M25.552 PAIN IN LEFT HIP 12/12/2019 SHELIA DAVID DO Ot N39 .0 URINARY TRACT INFECTION, SITE NOT SPECIF 12/12/2019 JOANN SHELIA MONTGOMERY Ot S73.005A UNSPECIFIED DISLOCATION OF LEFT HIP, INI 12/12/2019 JOANN , SHELIA Vidya Ot W01.0XXA FALL SAME LEV FROM SLIP/TRIP W/O STRIKE 12/12/2019 JOANN SHELIA MONTGOMERY Ot Z85.41 PERSONAL HISTORY OF MALIGNANT NEOPLASM O 12/12/2019 JOANN SHELIA MONTGOMERY Ot Z88 .8 ALLERGY STATUS TO OTH DRUG/MEDS/BIOL SUB 12/13/2019 YANDY MAE, KLEVER Hoffmann Ot M25.5 52 PAIN IN LEFT HIP 12/13/2019 YANDY MAE, KLEVER Hoffmann Ot R40.2142 COMA SCALE, EYES OPEN, SPONTANEOUS, EMR 12/13/2019 YANDY MAE, KLEVER Hoffmann Ot R40.2252 COMA SCALE, BEST VERBAL RESPONSE, ORIENT 12/13/2019 YANDY MAE, KLEVER Hoffmann Ot R40.2362 COMA SCALE, BEST MOTOR RESPONSE, OBEYS C 12/13/2019 YANDY MAE, KLEVER Hoffmann Ot S72.042A DISP FX OF BASE OF NECK OF LEFT FEMUR, I 12/13/2019 YANDY MAE, KLEVER Hoffmann Ot W01.0XXA FALL SAME LEV FROM SLIP/TRIP W/O STRIKE 12/13/2019 YANDY MAE, KLEVER Hoffmann Ot Y92.[address] [facility] [address] [facility] 12/13/2019 YANDY MAE, KLEVER Hoffmann Ot Z85.4 1 PERSONAL HISTORY OF MALIGNANT NEOPLASM O 12/13/2019 YANDY MAE, KLEVER Hoffmann Ot Z88.8 ALLERGY STATUS TO OTH DRUG/MEDS/BIOL SUB 12/19/2019 ANN DO DENI Ot D62 ACUTE POSTHEMORRHAGIC ANEMIA 12/19/2019 ANN MONTGOMERY DENI Ot E43 UNSPECIFIED SEVERE PROTEIN-CALORIE MALNU 12/19/2019 ANN MONTGOMERY DENI Ot E86.0 DEHYDRATION 12/19/2019 ANN MONTGOMERY DENI Ot F31.9 BIPOLAR DISORDER, UNSPECIFIED 12/19/2019 ANN MONTGOMERY DENI Ot F41.9 ANXIETY DISORDER, UNSPECIFIED 12/19/2019 ANN MONTGOMERY DENI Ot F50.01 ANOREXIA NERVOSA, RESTRICTING TYPE 12/19/2019 JUAREZ DO, DENI Ot K59.00 CONSTIPATION, UNSPECIFIED 12/19/2019 JUAREZ DO, DENI Ot K62.5 HEMORRHAGE OF ANUS AND RECTUM 12/19/2019 JUAREZ DO, DENI Ot K62.89 OTHER SPECIFIED DISEASES OF ANUS AND REC 12/19/2019 JUAREZ DO, DENI Ot K64.9 UNSPECIFIED HEMORRHOIDS 12/19/2019 JUAREZ DO, DENI Ot M06.9 RHEUMATOID ARTHRITIS, UNSPECIFIED 12/19/2019 JUAREZ DO, DENI Ot M97.02 XD PERIPROSTH FRACTURE AROUND INTERNAL PROS 12/19/2019 JUAREZ DO, DENI Ot N31.9 NEUROMUSCULAR DYSFUNCTION OF BLADDER, UN 12/19/2019 JUAREZ DO, DENI Ot R00.0 TACHYCARDIA, UNSPECIFIED 12/19/2019 JUAREZ DO, DENI Ot R33.9 RETENTION OF URINE, UNSPECIFIED 12/19/2019 JUAREZ DO, DENI Ot R41.0 DISORIENTATION, UNSPECIFIED 12/19/2019 JUAREZ DO, DENI Ot R64 CACHEXIA 12/19/2019 JUAREZ DO, DENI Ot T84.02 1D DISLOCATION OF INTERNAL LEFT HIP PROSTHE 12/19/2019 JUAREZ DO, DENI Ot Z79.52 JAIL (CURRENT) USE OF SYSTEMIC STER 12/19/2019 JUAREZ DO, DENI Ot Z85.41 PERSONAL HISTORY OF MALIGNANT NEOPLASM O 12/19/2019 JUAREZ DO, DENI Ot Z87.89 1 PERSONAL HISTORY OF NICOTINE DEPENDENCE 12/19/2019 JUAREZ DO, DENI Ot 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 9 ANEMIA, UNSPECIFIED 12/19/2019 MIGUELINA KAT DO Ot F31. 9 BIPOLAR DISORDER, UNSPECIFIED 12/19/2019 MIGUELINA KAT DO Ot F41. 9 ANXIETY DISORDER, UNSPECIFIED 12/19/2019 MIGUELINA KAT DO Ot F50. 9 EATING DISORDER, UNSPECIFIED 12/19/2019 MIGUELINA KAT DO Ot I95. 9 HYPOTENSION, UNSPECIFIED 12/19/2019 MIGUELINA KAT DO Ot K62. 5 HEMORRHAGE OF ANUS AND RECTUM 12/19/2019 MIGUELINA KAT DO Ot Z66 DO NOT RESUSCITATE 12/19/2019 MIGUELINA KAT DO Ot Z85. 41 PERSONAL HISTORY OF MALIGNANT NEOPLASM O 12/19/2019 MIGUELINA KAT DO Ot Z90.710 ACQUIRED ABSENCE OF BOTH CERVIX AND UTER 12/19/2019 MIGUELINA KAT DO Ot Z96.642 PRESENCE OF LEFT ARTIFICIAL HIP JOINT 12/25/2019 MIGUELINA KAT DO Ot D64. 9 ANEMIA, UNSPECIFIED 12/25/2019 SHEY MONTGOMERY MIGUELINA B Ot F31. 9 BIPOLAR DISORDER, UNSPECIFIED 12/25/2019 SHEY MONTGOMERY MIGUELINA B Ot F41. 9 ANXIETY DISORDER, UNSPECIFIED 12/25/2019 SHEY MONTGOMERY MIGUELINA B Ot F50. 9 EATING DISORDER, UNSPECIFIED 12/25/2019 SHEY MONTGOMERY MIGUELINA Dante Ot I95. 9 HYPOTENSION, UNSPECIFIED 12/25/2019 SHEY MONTGOMERY MIGUEILNA Dante Ot K62. 5 HEMORRHAGE OF ANUS AND RECTUM 12/25/2019 SHEY MONTGOMERY MIGUELINA B Ot Z66 DO NOT RESUSCITATE 12/25/2019 SHEY MONTGOMERY MIGUELINA Dante Ot Z85. 41 PERSONAL HISTORY OF MALIGNANT NEOPLASM O 12/25/2019 SHEY MONTGOMERY MIGUELINA Dante Ot Z90.710 ACQUIRED ABSENCE OF BOTH CERVIX AND UTER 12/25/2019 SHEY MONTGOMERY MIGUELINA Dante Ot Z96.642 PRESENCE OF LEFT ARTIFICIAL HIP JOINT Procedures Code [place] [address] PSYC H DIAGNOSTIC EVALUATION 11/30/2012 00960 PSYT X PT&/FAMILY 45 MINUTES 12/14/2012 07188 PSYT X PT&/FAMILY 45 MINUTES 01/18/2013 44135 PSYT X PT&/FAMILY 45 MINUTES 01/31/2013 74578 PSYT X PT&/FAMILY 45 MINUTES 02/21/2013 44444 PSYT X PT&/FAMILY 45 MINUTES 03/01/2013 05662 PSYT X PT&/FAMILY 45 MINUTES 03/13/2013 84627 PSYT X PT&/FAMILY 45 MINUTES 05/11/2013 43409 PSYT X PT&/FAMILY 45 MINUTES 05/22/2013 22709 PSYT X PT&/FAMILY 45 MINUTES 05/24/2013 63057 PSYT X PT&/FAMILY 45 MINUTES 06/05/2013 69472 PSYT X PT&/FAMILY 45 MINUTES 06/08/2013 17947 PSYT X PT&/FAMILY 45 MINUTES 2013 53915 PSYT X PT&/FAMILY 30 MINUTES 06/30/2013 80681 PSYT X PT&/FAMILY 45 MINUTES 07/14/2013 79307 PSYT X PT&/FAMILY 45 MINUTES 07/27/2013 38656 PSYT X PT&/FAMILY 45 MINUTES 08/10/2013 99694 PSYT X PT&/FAMILY 45 MINUTES 08/15/2013 68970 PSYT X PT&/FAMILY 45 MINUTES 08/21/2013 86944 PSYT X PT&/FAMILY 45 MINUTES 09/07/2013 18888 PSYT X PT&/FAMILY 45 MINUTES 09/15/2013 86442 PSYT X PT&/FAMILY 45 MINUTES 09/28/2013 16414 PSYT X PT&/FAMILY 45 MINUTES 10/10/2013 26942 PSYT X PT&/FAMILY 45 MINUTES 10/20/2013 07000 PSYT X PT&/FAMILY 45 MINUTES 10/25/2013 43374 PSYT X PT&/FAMILY 45 MINUTES 11/14/2013 48359 PSYT X PT&/FAMILY 45 MINUTES 11/17/2013 94197 PSYT X PT&/FAMILY 45 MINUTES 12/07/2013 78023 PSYT X PT&/FAMILY 45 MINUTES 12/15/2013 35213 PSYT X PT&/FAMILY 45 MINUTES 12/28/2013 41873 PSYT X PT&/FAMILY 45 MINUTES 01/04/2014 83089 PSYT X PT&/FAMILY 45 MINUTES 01/17/2014 37630 PSYT X PT&/FAMILY 45 MINUTES 01/18/2014 52769 PSYT X PT&/FAMILY 45 MINUTES 01/25/2014 94766 PSYT X PT&/FAMILY 45 MINUTES 01/31/2014 70353 PSYT X PT&/FAMILY 45 MINUTES 02/06/2014 37920 PSYT X PT&/FAMILY 45 MINUTES 02/13/2014 02365 PSYT X PT&/FAMILY 45 MINUTES 03/01/2014 78454 PSYT X PT&/FAMILY 45 MINUTES 03/05/2014 98755 PSYT X PT&/FAMILY 45 MINUTES 03/12/2014 91906 PSYT X PT&/FAMILY 45 MINUTES 03/28/2014 75875 PSYT X PT&/FAMILY 45 MINUTES 04/04/2014 89305 PSYT X PT&/FAMILY 45 MINUTES 04/11/2014 75523 PSYT X PT&/FAMILY 45 MINUTES 04/18/2014 40657 PSYT X PT&/FAMILY 45 MINUTES 04/23/2014 50432 PSYT X PT&/FAMILY 45 MINUTES 05/08/2014 26980 PSYT X PT&/FAMILY 45 MINUTES 05/16/2014 42079 PSYT X PT&/FAMILY 45 MINUTES 05/23/2014 24787 PSYT X PT&/FAMILY 45 MINUTES 06/01/2014 41352 PSYT X PT&/FAMILY 45 MINUTES 06/12/2014 74174 PSYT X PT&/FAMILY 45 MINUTES 06/21/2014 87655 PSYT X PT&/FAMILY 45 MINUTES 07/05/2014 91408 PSYT X PT&/FAMILY 45 MINUTES 07/12/2014 84452 PSYT X PT&/FAMILY 45 MINUTES 07/26/2014 86634 PSYT X PT&/FAMILY 45 MINUTES 07/30/2014 64210 PSYT X PT&/FAMILY 45 MINUTES 08/09/2014 51783 PSYT X PT&/FAMILY 45 MINUTES 08/16/2014 74957 PSYT X PT&/FAMILY 45 MINUTES 08/29/2014 43342 PSYT X PT&/FAMILY 45 MINUTES 09/05/2014 10226 PSYT X PT&/FAMILY 45 MINUTES 09/13/2014 65439 PSYT X PT&/FAMILY 45 MINUTES 09/18/2014 50523 PSYT X PT&/FAMILY 45 MINUTES 10/09/2014 07956 PSYT X PT&/FAMILY 45 MINUTES 10/31/2014 02301 PSYT X PT&/FAMILY 45 MINUTES 11/07/2014 15152 PSYT X PT&/FAMILY 45 MINUTES 12/19/2014 64804 PSYT X PT&/FAMILY 45 MINUTES 01/16/2015 Results Test Result Range CMP - 11/20/19 14:32 GLUCOSE 85 mg/dL 65-99 UREA NITROGEN (BUN) 13 mg/dL 7-25 CREATININE 1.13 mg/dL 0.50-0.99 eGFR NON-AFR. [place] 51 mL/min/1.73m2 > OR = 60 eGFR 59 mL/min/1.73m2 > OR = 60 BUN/CREATININE RATIO 12 (calc) 6-22 SODIUM 136 mmol/L 135-146 POTASSIUM 4.1 mmol/L 3.5-5.3 CHLORIDE 102 mmol/L 98-110 CARBON DIOXIDE 27 mmol/L 20-32 CALCIUM 9.3 mg/dL 8.6-10.4 PROTEIN, TOTAL 6.3 g/dL 6.1-8.1 ALBUMIN 4.0 g/dL 3.6-5.1 GLOBULIN 2.3 g/dL (calc) 1.9-3.7 ALBUMIN/GLOBULIN RATIO 1.7 (calc) 1.0-2. 5 BILIRUBIN, TOTAL 0.4 mg/dL 0.2-1.2 ALKALINE PHOSPHATASE 68 U/L 37-153 AST 21 U/L 10-35 ALT 16 U/L 6-29 ESR/SED RATE - 11/20/19 14:32 SED RATE BY MODIFIED WESTERGREN 9 mm/h < OR = 30 CRP - 11/20/19 14:32 C-REACTIVE PROTEIN 0.3 mg/L <8.0 RA (RHEUMATOID) FACTOR - 11/20/19 14:32 RHEUMATOID FACTOR 23 IU/mL <14 CCP ANTIBODY - 11/20/19 14:32 CYCLIC CITRULLINATED PEPTIDE (CCP) AB (IGG) >250 U NITS [facility] ÁNGEL ANALYZER - 11/20/19 14:32 ÁNGEL SCREEN, IFA NEGATIVE NEGATIVE PT panel in platelet poor plasma by coag ulation assay - 11/29/19 20:00 Prothrombin time (PT) in platelet poor plasma by coagu lation assay 12.9 s 12.2-14.7 INR in platelet poor plasma or blood by coagulation as say 0.9 0.8-1.4 Activated partial thromboplastin time (a PTT) in platelet poor plasma bycoagulation assay - 11/29/19 20:00 Activated partial thromboplastin time (a PTT) in platelet poor plasma bycoagulation assay 26 s 24-35 Comprehensive metabolic panel - 11/29/19 20:00 Serum or plasma sodium measurement (moles/volume) 140 mmol/L 135-145 Serum or plasma potassium measurement (moles/volume) 4.3 mmol/L 3.6-5.0 Serum or plasma chloride measurement (moles/volume) 103 mmol/L 98-107 Carbon dioxide 23 mmol/L 21-32 Serum or plasma anion gap determination (moles/volume) 14 mmol/L 5-14 Serum or plasma urea nitrogen measurement (mass/volume ) 15 mg/dL 7-18 Serum or plasma creatinine measurement (mass/volume) 0.98 mg/dL 0.60-1.30 Serum or plasma urea nitrogen/creatinine mass ratio 15 NRG Serum or plasma creatinine measurement w ith calculation of estimated glomerular filtration rate 57 NRG Serum or plasma glucose measurement (mass/volume) 108 mg/dL 70-105 Serum or plasma calcium measurement (mass/volume) 8.7 mg/dL 8.5-10.1 Serum or plasma total bilirubin measurement (mass/volu me) 0.2 mg/dL 0.1-1.0 Serum or plasma alkaline phosphatase pk surement (enzymatic activity/volume) 68 U/L 40-136 Serum or plasma aspartate aminotransfera se measurement (enzymatic activity/volume) 22 U/L 5-34 Serum or plasma alanine aminotransferase measurement (enzymatic activity/volume) 18 U/L 0-55 Serum or plasma protein measurement (mass/volume) 6.3 g/dL 6.4-8.2 Serum or plasma albumin measurement (mass/volume) 3.8 g/dL 3.2-4.5 CALCIUM CORRECTED 8.9 mg/dL 8.5-10.1 Complete blood count (CBC) with automate d white blood cell (WBC) differential - 11/29/19 20:00 Blood leukocytes automated count (number/volume) 7.5 10*3/uL 4.3-11.0 Blood erythrocytes automated count (number/volume) 3.53 10*6/uL 4.35-5.85 Venous blood hemoglobin measurement (mass/volume) 11.4 g/dL 11.5-16.0 Blood hematocrit (volume fraction) 35 % 35-52 Automated erythrocyte mean corpuscular volume 100 [foz_us] 80-99 Automated erythrocyte mean corpuscular h emoglobin (mass per erythrocyte) 32 pg 25-34 Automated erythrocyte mean corpuscular h emoglobin concentration measurement (mass/volume) 32 g/dL 32-36 Automated erythrocyte distribution width ratio 15. 3 % 10.0- 14.5 Automated blood platelet count (count/volume) 289 10*3/uL 130-400 Automated blood platelet mean volume measurement 8.8 [foz_us] 7.4-10.4 Automated blood neutrophils/100 leukocytes 75 % 42-75 Automated blood lymphocytes/100 leukocytes 19 % 12-44 Blood monocytes/100 leukocytes 5 % 0-12 Automated blood eosinophils/100 leukocytes 0 % 0-10 Automated blood basophils/100 leukocytes 1 % 0-10 Blood neutrophils automated count (number/volume) 5.6 10*3 1.8-7.8 Blood lymphocytes automated count (number/volume) 1.4 10*3 1.0-4.0 Blood monocytes automated count (number/volume) 0. 3 10*3 0.0-1.0 Automated eosinophil count 0.0 10*3/uL 0 .0-0.3 Automated blood basophil count (count/volume) 0.1 10*3/uL 0.0-0.1 Complete urinalysis with reflex to cultu re - 11/29/19 21:04 Urine color determination YELLOW NRG Urine clarity determination CLEAR NR G Urine pH measurement by test strip 7.5 5-9 Specific gravity of urine by test strip 1.020 1.016-1.022 Urine protein assay by test strip, semi-quantitative NEGATIVE NEGATIVE Urine glucose detection by automated test strip NE GATIVE NEGATIVE Erythrocytes detection in urine sediment by light micr oscopy NEGATIVE NEGATIVE Urine ketones detection by automated test strip NE GATIVE NEGATIVE Urine nitrite detection by test strip NEGATIVE NEGATIVE Urine total bilirubin detection by test strip NEGA TIVE NEGATIVE Urine urobilinogen measurement by automated test strip (mass/volume) 0.2 mg/dL < = 1.0 Urine leukocyte esterase detection by dipstick NEG ATIVE NEGATIVE Automated urine sediment erythrocyte cou nt by microscopy (number/high power field) [HPF] NRG Automated urine sediment leukocyte count by microscopy (number/high power field) NONE NRG Bacteria detection in urine sediment by light microsco py NEGATIVE NRG Squamous epithelial cells detection in u rine sediment by light microscopy 0-2 NRG Crystals detection in urine sediment by light microsco py NONE NRG Casts detection in urine sediment by light microscopy NONE NRG Mucus detection in urine sediment by light microscopy SMALL NRG Complete urinalysis with reflex to culture NO NRG Complete blood count (CBC) with automate d white blood cell (WBC) differential - 12/12/19 13:20 Blood leukocytes automated count (number/volume) 21.5 10*3/uL 4.3-11.0 Blood erythrocytes automated count (number/volume) 3.28 10*6/uL 4.35-5.85 Venous blood hemoglobin measurement (mass/volume) 10.7 g/dL 11.5-16.0 Blood hematocrit (volume fraction) 32 % 35-52 Automated erythrocyte mean corpuscular volume 99 [ foz_us] 80-99 Automated erythrocyte mean corpuscular h emoglobin (mass per erythrocyte) 33 pg 25-34 Automated erythrocyte mean corpuscular h emoglobin concentration measurement (mass/volume) 33 g/dL 32-36 Automated erythrocyte distribution width ratio 16. 3 % 10.0- 14.5 Automated blood platelet count (count/volume) 764 10*3/uL 130-400 Automated blood platelet mean volume measurement 8.4 [foz_us] 7.4-10.4 Automated blood neutrophils/100 leukocytes 89 % 42-75 Automated blood lymphocytes/100 leukocytes 5 % 12-44 Blood monocytes/100 leukocytes 6 % 0-12 Automated blood eosinophils/100 leukocytes 0 % 0-10 Automated blood basophils/100 leukocytes 0 % 0-10 Blood neutrophils automated count (number/volume) 18.2 10*3 1.8-7.8 Blood lymphocytes automated count (number/volume) 1.1 10*3 1.0-4.0 Blood monocytes automated count (number/volume) 1. 3 10*3 0.0-1.0 Automated eosinophil count 0.0 10*3/uL 0 .0-0.3 Automated blood basophil count (count/volume) 0.1 10*3/uL 0.0-0.1 PT panel in platelet poor plasma by coag ulation assay - 12/12/19 13:20 Prothrombin time (PT) in platelet poor plasma by coagu lation assay 13.7 s 12.2-14.7 INR in platelet poor plasma or blood by coagulation as say 1.0 0.8-1.4 Activated partial thromboplastin time (a PTT) in platelet poor plasma bycoagulation assay - 12/12/19 13:20 Activated partial thromboplastin time (a PTT) in platelet poor plasma bycoagulation assay 34 s 24-35 Comprehensive metabolic panel - 12/12/19 13:20 Serum or plasma sodium measurement (moles/volume) 133 mmol/L 135-145 Serum or plasma potassium measurement (moles/volume) 3.8 mmol/L 3.6-5.0 Serum or plasma chloride measurement (moles/volume) 94 mmol/L 98-107 Carbon dioxide 25 mmol/L 21-32 Serum or plasma anion gap determination (moles/volume) 14 mmol/L 5-14 Serum or plasma urea nitrogen measurement (mass/volume ) 14 mg/dL 7-18 Serum or plasma creatinine measurement (mass/volume) 0.77 mg/dL 0.60-1.30 Serum or plasma urea nitrogen/creatinine mass ratio 18 NRG Serum or plasma creatinine measurement w ith calculation of estimated glomerular filtration rate > NRG Serum or plasma glucose measurement (mass/volume) 106 mg/dL 70-105 Serum or plasma calcium measurement (mass/volume) 9.1 mg/dL 8.5-10.1 Serum or plasma total bilirubin measurement (mass/volu me) 0.5 mg/dL 0.1-1.0 Serum or plasma alkaline phosphatase pk surement (enzymatic activity/volume) 121 U/L 40-136 Serum or plasma aspartate aminotransfera se measurement (enzymatic activity/volume) 33 U/L 5-34 Serum or plasma alanine aminotransferase measurement (enzymatic activity/volume) 23 U/L 0-55 Serum or plasma protein measurement (mass/volume) 6.4 g/dL 6.4-8.2 Serum or plasma albumin measurement (mass/volume) 3.0 g/dL 3.2-4.5 CALCIUM CORRECTED 9.9 mg/dL 8.5-10.1 Manual absolute plasma cell count - 11/25 04/15 13:20 Blood monocytes/100 leukocytes 5 % NRG Manual blood segmented neutrophils/100 leukocytes 87 % NRG Blood band neutrophils/100 leukocytes 3 % NRG Manual blood lymphocytes/100 leukocytes 5 % NRG Manual eosinophils/100 leukocytes in nose 0 % NRG Manual blood basophils/100 leukocytes 0 % NRG Blood macrocytes detection by light microscopy 1+ NRG Blood hypochromia detection by light microscopy 1+ NRG Blood microcytes detection by light microscopy 1+ NRG Blood platelet adequacy detection by light microscopy INCREASED NRG Complete urinalysis with reflex to cultu re - 12/12/19 14:20 Urine color determination YELLOW NRG Urine clarity determination CLOUDY NR G Urine pH measurement by test strip 6.0 5-9 Specific gravity of urine by test strip 1.020 1.016-1.022 Urine protein assay by test strip, semi-quantitative 2+ NEGATIVE Urine glucose detection by automated test strip NE GATIVE NEGATIVE Erythrocytes detection in urine sediment by light micr oscopy 2+ NEGATIVE Urine ketones detection by automated test strip 1+ NEGATIVE Urine nitrite detection by test strip POSITIVE NEGATIVE Urine total bilirubin detection by test strip NEGA TIVE NEGATIVE Urine urobilinogen measurement by automated test strip (mass/volume) 0.2 mg/dL < = 1.0 Urine leukocyte esterase detection by dipstick 2+ NEGATIVE Automated urine sediment erythrocyte cou nt by microscopy (number/high power field) [HPF] NRG Automated urine sediment leukocyte count by microscopy (number/high power field) > [HPF] NRG Bacteria detection in urine sediment by light microsco py LARGE NRG Squamous epithelial cells detection in u rine sediment by light microscopy NONE NRG Crystals detection in urine sediment by light microsco py NONE NRG Casts detection in urine sediment by light microscopy NONE NRG Mucus detection in urine sediment by light microscopy SMALL NRG Complete urinalysis with reflex to culture YES NRG Bacterial urine culture - 12/12/19 14:20 Bacterial urine culture [id number] NRG COLONY COUNT >100,000/ML NRG SUSCEPTIBILITY SUSCEPTIBILITY REPORTED 12-15-19,121 1 NRG MRSA SCREEN PRELIM RAPID ID BY VCP 12-14-19, 1048 NRG RAPID ID ID CONFIRMED NRG Dirithromycin susceptibility test by dis k diffusion - 12/12/19 14:20 Gentamicin susceptibility test by minimum inhibitory c oncentration <= NRG Trimethoprim/sulfamethoxazole susceptibi lity test by minimum inhibitoryconcentration <= NRG Levofloxacin susceptibility test by minimum inhibitory concentration <= NRG Ampicillin susceptibility test by minimum inhibitory c oncentration <= NRG Cefazolin susceptibility test by minimum inhibitory co ncentration <= NRG Ceftriaxone susceptibility test by minimum inhibitory concentration <= NRG Ciprofloxacin susceptibility test by minimum inhibitor y concentration <= NRG Meropenem susceptibility test by minimum inhibitory co ncentration <= NRG Nitrofurantoin susceptibility test by mi nimum inhibitory concentration <= NRG Amoxicillin and clavulanate potassium susc [place] <= NRG Complete blood count (CBC) with automate d white blood cell (WBC) differential - 12/15/19 13:50 Blood leukocytes automated count (number/volume) 16.8 10*3/uL 4.3-11.0 Blood erythrocytes automated count (number/volume) 2.62 10*6/uL 4.35-5.85 Venous blood hemoglobin measurement (mass/volume) 8.2 g/dL 11.5-16.0 Blood hematocrit (volume fraction) 26 % 35-52 Automated erythrocyte mean corpuscular volume 100 [foz_us] 80-99 Automated erythrocyte mean corpuscular h emoglobin (mass per erythrocyte) 31 pg 25-34 Automated erythrocyte mean corpuscular h emoglobin concentration measurement (mass/volume) 31 g/dL 32-36 Automated erythrocyte distribution width ratio 16. 1 % 10.0- 14.5 Automated blood platelet count (count/volume) 791 10*3/uL 130-400 Automated blood platelet mean volume measurement 8.1 [foz_us] 7.4-10.4 Automated blood neutrophils/100 leukocytes 92 % 42-75 Automated blood lymphocytes/100 leukocytes 3 % 12-44 Blood monocytes/100 leukocytes 5 % 0-12 Automated blood eosinophils/100 leukocytes 0 % 0-10 Automated blood basophils/100 leukocytes 0 % 0-10 Blood neutrophils automated count (number/volume) 15.3 10*3 1.8-7.8 Blood lymphocytes automated count (number/volume) 0.5 10*3 1.0-4.0 Blood monocytes automated count (number/volume) 0. 8 10*3 0.0-1.0 Automated eosinophil count 0.1 10*3/uL 0 .0-0.3 Automated blood basophil count (count/volume) 0.0 10*3/uL 0.0-0.1 Comprehensive metabolic panel - 12/15/19 13:50 Serum or plasma sodium measurement (moles/volume) 135 mmol/L 135-145 Serum or plasma potassium measurement (moles/volume) 4.2 mmol/L 3.6-5.0 Serum or plasma chloride measurement (moles/volume) 101 mmol/L 98-107 Carbon dioxide 21 mmol/L 21-32 Serum or plasma anion gap determination (moles/volume) 13 mmol/L 5-14 Serum or plasma urea nitrogen measurement (mass/volume ) 11 mg/dL 7-18 Serum or plasma creatinine measurement (mass/volume) 0.72 mg/dL 0.60-1.30 Serum or plasma urea nitrogen/creatinine mass ratio 15 NRG Serum or plasma creatinine measurement w ith calculation of estimated glomerular filtration rate > NRG Serum or plasma glucose measurement (mass/volume) 128 mg/dL 70-105 Serum or plasma calcium measurement (mass/volume) 8.2 mg/dL 8.5-10.1 Serum or plasma total bilirubin measurement (mass/volu me) 0.4 mg/dL 0.1-1.0 Serum or plasma alkaline phosphatase pk surement (enzymatic activity/volume) 109 U/L 40-136 Serum or plasma aspartate aminotransfera se measurement (enzymatic activity/volume) 52 U/L 5-34 Serum or plasma alanine aminotransferase measurement (enzymatic activity/volume) 37 U/L 0-55 Serum or plasma protein measurement (mass/volume) 5.8 g/dL 6.4-8.2 Serum or plasma albumin measurement (mass/volume) 3.0 g/dL 3.2-4.5 CALCIUM CORRECTED 9.0 mg/dL 8.5-10.1 IRON TEST - 12/15/19 13:50 Serum or plasma iron measurement (mass/volume) 28 % 33-167 Prealbumin - 12/15/19 13:50 Serum or plasma prealbumin measurement (mass/volume) 8.7 % 18.0-37.0 Blood lactic acid measurement (moles/vol ume) - 12/15/19 17:10 Blood lactic acid measurement (moles/volume) 0.96 mmol/L 0.50-2.00 PROCALCITONIN (PCT) - 12/15/19 17:10 PROCALCITONIN (PCT) 0.36 ng/mL <0.10 Complete urinalysis with reflex to cultu re - 12/15/19 18:14 Urine color determination YELLOW NRG Urine clarity determination CLEAR NR G Urine pH measurement by test strip 7.5 5-9 Specific gravity of urine by test strip 1.015 1.016-1.022 Urine protein assay by test strip, semi-quantitative NEGATIVE NEGATIVE Urine glucose detection by automated test strip NE GATIVE NEGATIVE Erythrocytes detection in urine sediment by light micr oscopy TRACE-I NEGATIVE Urine ketones detection by automated test strip NE GATIVE NEGATIVE Urine nitrite detection by test strip NEGATIVE NEGATIVE Urine total bilirubin detection by test strip NEGA TIVE NEGATIVE Urine urobilinogen measurement by automated test strip (mass/volume) 0.2 mg/dL < = 1.0 Urine leukocyte esterase detection by dipstick TRA CE NEGATIVE Automated urine sediment erythrocyte cou nt by microscopy (number/high power field) [HPF] NRG Automated urine sediment leukocyte count by microscopy (number/high power field) [HPF] NRG Bacteria detection in urine sediment by light microsco py FEW NRG Squamous epithelial cells detection in u rine sediment by light microscopy 2-5 NRG Crystals detection in urine sediment by light microsco py PRESENT NRG Casts detection in urine sediment by light microscopy NONE NRG Mucus detection in urine sediment by light microscopy NEGATIVE NRG Complete urinalysis with reflex to culture CULTURE PENDING NRG Amorphous sediment detection in urine sediment by ligh t microscopy FEW LOLIS PHOSPHATE NRG Bacterial urine culture - 12/15/19 18:14 Bacterial urine culture NG NRG Bacterial blood culture - 12/15/19 19:01 Bacterial blood culture NG NRG Bacterial blood culture - 12/15/19 19:01 Bacterial blood culture NG NRG Complete blood count (CBC) with automate d white blood cell (WBC) differential - 12/16/19 07:20 Blood leukocytes automated count (number/volume) 10.5 10*3/uL 4.3-11.0 Blood erythrocytes automated count (number/volume) 2.23 10*6/uL 4.35-5.85 Venous blood hemoglobin measurement (mass/volume) 7.1 g/dL 11.5-16.0 Blood hematocrit (volume fraction) 22 % 35-52 Automated erythrocyte mean corpuscular volume 100 [foz_us] 80-99 Automated erythrocyte mean corpuscular h emoglobin (mass per erythrocyte) 32 pg 25-34 Automated erythrocyte mean corpuscular h emoglobin concentration measurement (mass/volume) 32 g/dL 32-36 Automated erythrocyte distribution width ratio 16. 4 % 10.0- 14.5 Automated blood platelet count (count/volume) 692 10*3/uL 130-400 Automated blood platelet mean volume measurement 7.7 [foz_us] 7.4-10.4 Automated blood neutrophils/100 leukocytes 76 % 42-75 Automated blood lymphocytes/100 leukocytes 12 % 12-44 Blood monocytes/100 leukocytes 9 % 0-12 Automated blood eosinophils/100 leukocytes 3 % 0-10 Automated blood basophils/100 leukocytes 1 % 0-10 Blood neutrophils automated count (number/volume) 7.9 10*3 1.8-7.8 Blood lymphocytes automated count (number/volume) 1.3 10*3 1.0-4.0 Blood monocytes automated count (number/volume) 0. 9 10*3 0.0-1.0 Automated eosinophil count 0.3 10*3/uL 0 .0-0.3 Automated blood basophil count (count/volume) 0.1 10*3/uL 0.0-0.1 Comprehensive metabolic panel - 12/16/19 08:20 Serum or plasma sodium measurement (moles/volume) 133 mmol/L 135-145 Serum or plasma potassium measurement (moles/volume) 4.0 mmol/L 3.6-5.0 Serum or plasma chloride measurement (moles/volume) 101 mmol/L 98-107 Carbon dioxide 22 mmol/L 21-32 Serum or plasma anion gap determination (moles/volume) 10 mmol/L 5-14 Serum or plasma urea nitrogen measurement (mass/volume ) 9 mg/dL 7-18 Serum or plasma creatinine measurement (mass/volume) 0.61 mg/dL 0.60-1.30 Serum or plasma urea nitrogen/creatinine mass ratio 15 NRG Serum or plasma creatinine measurement w ith calculation of estimated glomerular filtration rate > NRG Serum or plasma glucose measurement (mass/volume) 80 mg/dL 70-105 Serum or plasma calcium measurement (mass/volume) 7.9 mg/dL 8.5-10.1 Serum or plasma total bilirubin measurement (mass/volu me) 0.3 mg/dL 0.1-1.0 Serum or plasma alkaline phosphatase pk surement (enzymatic activity/volume) 93 U/L 40-136 Serum or plasma aspartate aminotransfera se measurement (enzymatic activity/volume) 39 U/L 5-34 Serum or plasma alanine aminotransferase measurement (enzymatic activity/volume) 30 U/L 0-55 Serum or plasma protein measurement (mass/volume) 4.7 g/dL 6.4-8.2 Serum or plasma albumin measurement (mass/volume) 2.5 g/dL 3.2-4.5 CALCIUM CORRECTED 9.1 mg/dL 8.5-10.1 PROCALCITONIN (PCT) - 12/16/19 08:20 PROCALCITONIN (PCT) 0.32 ng/mL <0.10 Complete blood count (CBC) with automate d white blood cell (WBC) differential - 12/18/19 02:45 Blood leukocytes automated count (number/volume) 10.4 10*3/uL 4.3-11.0 Blood erythrocytes automated count (number/volume) 2.06 10*6/uL 4.35-5.85 Venous blood hemoglobin measurement (mass/volume) 7.0 g/dL 11.5-16.0 Blood hematocrit (volume fraction) 21 % 35-52 Automated erythrocyte mean corpuscular volume 102 [foz_us] 80-99 Automated erythrocyte mean corpuscular h emoglobin (mass per erythrocyte) 34 pg 25-34 Automated erythrocyte mean corpuscular h emoglobin concentration measurement (mass/volume) 32 g/dL 32-36 Automated erythrocyte distribution width ratio 17. 0 % 10.0- 14.5 Automated blood platelet count (count/volume) 663 10*3/uL 130-400 Automated blood platelet mean volume measurement 7.6 [foz_us] 7.4-10.4 Automated blood neutrophils/100 leukocytes 74 % 42-75 Automated blood lymphocytes/100 leukocytes 12 % 12-44 Blood monocytes/100 leukocytes 11 % 0-12 Automated blood eosinophils/100 leukocytes 3 % 0-10 Automated blood basophils/100 leukocytes 1 % 0-10 Blood neutrophils automated count (number/volume) 7.7 10*3 1.8-7.8 Blood lymphocytes automated count (number/volume) 1.3 10*3 1.0-4.0 Blood monocytes automated count (number/volume) 1. 1 10*3 0.0-1.0 Automated eosinophil count 0.3 10*3/uL 0 .0-0.3 Automated blood basophil count (count/volume) 0.1 10*3/uL 0.0-0.1 Comprehensive metabolic panel - 12/18/19 02:45 Serum or plasma sodium measurement (moles/volume) 136 mmol/L 135-145 Serum or plasma potassium measurement (moles/volume) 3.9 mmol/L 3.6-5.0 Serum or plasma chloride measurement (moles/volume) 105 mmol/L 98-107 Carbon dioxide 24 mmol/L 21-32 Serum or plasma anion gap determination (moles/volume) 7 mmol/L 5-14 Serum or plasma urea nitrogen measurement (mass/volume ) 7 mg/dL 7-18 Serum or plasma creatinine measurement (mass/volume) 0.63 mg/dL 0.60-1.30 Serum or plasma urea nitrogen/creatinine mass ratio 11 NRG Serum or plasma creatinine measurement w ith calculation of estimated glomerular filtration rate > NRG Serum or plasma glucose measurement (mass/volume) 94 mg/dL 70-105 Serum or plasma calcium measurement (mass/volume) 7.7 mg/dL 8.5-10.1 Serum or plasma total bilirubin measurement (mass/volu me) 0.2 mg/dL 0.1-1.0 Serum or plasma alkaline phosphatase pk surement (enzymatic activity/volume) 84 U/L 40-136 Serum or plasma aspartate aminotransfera se measurement (enzymatic activity/volume) 30 U/L 5-34 Serum or plasma alanine aminotransferase measurement (enzymatic activity/volume) 26 U/L 0-55 Serum or plasma protein measurement (mass/volume) 4.2 g/dL 6.4-8.2 Serum or plasma albumin measurement (mass/volume) 2.2 g/dL 3.2-4.5 CALCIUM CORRECTED 9.1 mg/dL 8.5-10.1 Serum or plasma folate measurement (mass /volume) - 12/18/19 02:45 Serum or plasma folate measurement (mass/volume) 1 4.1 % >=4.0 Serum iron and total iron binding capaci ty panel - 12/18/19 02:45 TIBC 123 % 280-380 UIBC 87 % 55-450 Serum or plasma iron measurement (mass/volume) 36 % 35-180 Total iron binding capacity and transferrin saturation measurement 29 % 15-50 Serum or plasma ferritin measurement (mass/volume) 2545.9 % 20.0-177.0 VITAMIN B 12 - 12/18/19 02:45 VITAMIN B 12 640 pg/mL 190-1100 Complete blood count (CBC) with automate d white blood cell (WBC) differential - 12/19/19 07:35 Blood leukocytes automated count (number/volume) 10.5 10*3/uL 4.3-11.0 Blood erythrocytes automated count (number/volume) 2.34 10*6/uL 4.35-5.85 Venous blood hemoglobin measurement (mass/volume) 7.5 g/dL 11.5-16.0 Blood hematocrit (volume fraction) 24 % 35-52 Automated erythrocyte mean corpuscular volume 103 [foz_us] 80-99 Automated erythrocyte mean corpuscular h emoglobin (mass per erythrocyte) 32 pg 25-34 Automated erythrocyte mean corpuscular h emoglobin concentration measurement (mass/volume) 31 g/dL 32-36 Automated erythrocyte distribution width ratio 17. 5 % 10.0- 14.5 Automated blood platelet count (count/volume) 629 10*3/uL 130-400 Automated blood platelet mean volume measurement 7.6 [foz_us] 7.4-10.4 Automated blood neutrophils/100 leukocytes 72 % 42-75 Automated blood lymphocytes/100 leukocytes 13 % 12-44 Blood monocytes/100 leukocytes 11 % 0-12 Automated blood eosinophils/100 leukocytes 3 % 0-10 Automated blood basophils/100 leukocytes 1 % 0-10 Blood neutrophils automated count (number/volume) 7.6 10*3 1.8-7.8 Blood lymphocytes automated count (number/volume) 1.4 10*3 1.0-4.0 Blood monocytes automated count (number/volume) 1. 1 10*3 0.0-1.0 Automated eosinophil count 0.3 10*3/uL 0 .0-0.3 Automated blood basophil count (count/volume) 0.1 10*3/uL 0.0-0.1 Blood blood smear finding identification by light micr oscopy YES [facility] Comprehensive metabolic panel - 12/19/19 07:35 Serum or plasma sodium measurement (moles/volume) 136 mmol/L 135-145 Serum or plasma potassium measurement (moles/volume) 3.7 mmol/L 3.6-5.0 Serum or plasma chloride measurement (moles/volume) 105 mmol/L 98-107 Carbon dioxide 23 mmol/L 21-32 Serum or plasma anion gap determination (moles/volume) 8 mmol/L 5-14 Serum or plasma urea nitrogen measurement (mass/volume ) 5 mg/dL 7-18 Serum or plasma creatinine measurement (mass/volume) 0.61 mg/dL 0.60-1.30 Serum or plasma urea nitrogen/creatinine mass ratio 8 NRG Serum or plasma creatinine measurement w ith calculation of estimated glomerular filtration rate > NRG Serum or plasma glucose measurement (mass/volume) 102 mg/dL 70-105 Serum or plasma calcium measurement (mass/volume) 7.8 mg/dL 8.5-10.1 Serum or plasma total bilirubin measurement (mass/volu me) 0.2 mg/dL 0.1-1.0 Serum or plasma alkaline phosphatase pk surement (enzymatic activity/volume) 86 U/L 40-136 Serum or plasma aspartate aminotransfera se measurement (enzymatic activity/volume) 27 U/L 5-34 Serum or plasma alanine aminotransferase measurement (enzymatic activity/volume) 28 U/L 0-55 Serum or plasma protein measurement (mass/volume) 4.6 g/dL 6.4-8.2 Serum or plasma albumin measurement (mass/volume) 2.4 g/dL 3.2-4.5 CALCIUM CORRECTED 9.1 mg/dL 8.5-10.1 Complete blood count (CBC) with automate d white blood cell (WBC) differential - 12/19/19 20:53 Blood leukocytes automated count (number/volume) 12.6 10*3/uL 4.3-11.0 Blood erythrocytes automated count (number/volume) 1.21 10*6/uL 4.35-5.85 Venous blood hemoglobin measurement (mass/volume) 3.9 g/dL 11.5-16.0 Blood hematocrit (volume fraction) 13 % 35-52 Automated erythrocyte mean corpuscular volume 109 [foz_us] 80-99 Automated erythrocyte mean corpuscular h emoglobin (mass per erythrocyte) 32 pg 25-34 Automated erythrocyte mean corpuscular h emoglobin concentration measurement (mass/volume) 30 g/dL 32-36 Automated erythrocyte distribution width ratio 17. 8 % 10.0- 14.5 Automated blood platelet count (count/volume) 471 10*3/uL 130-400 Automated blood platelet mean volume measurement 8.3 [foz_us] 7.4-10.4 Automated blood neutrophils/100 leukocytes 76 % 42-75 Automated blood lymphocytes/100 leukocytes 8 % 12-44 Blood monocytes/100 leukocytes 11 % 0-12 Automated blood eosinophils/100 leukocytes 1 % 0-10 Automated blood basophils/100 leukocytes 0 % 0-10 Blood neutrophils automated count (number/volume) 9.6 10*3 1.8-7.8 Blood lymphocytes automated count (number/volume) 1.1 10*3 1.0-4.0 Blood monocytes automated count (number/volume) 1. 3 10*3 0.0-1.0 Automated eosinophil count 0.1 10*3/uL 0 .0-0.3 Automated blood basophil count (count/volume) 0.0 10*3/uL 0.0-0.1 PT panel in platelet poor plasma by coag ulation assay - 12/19/19 20:53 Prothrombin time (PT) in platelet poor plasma by coagu lation assay 15.3 s 12.2-14.7 INR in platelet poor plasma or blood by coagulation as say 1.2 0.8-1.4 Activated partial thromboplastin time (a PTT) in platelet poor plasma bycoagulation assay - 12/19/19 20:53 Activated partial thromboplastin time (a PTT) in platelet poor plasma bycoagulation assay 29 s 24-35 Comprehensive metabolic panel - 12/19/19 20:53 Serum or plasma sodium measurement (moles/volume) 134 mmol/L 135-145 Serum or plasma potassium measurement (moles/volume) 4.1 mmol/L 3.6-5.0 Serum or plasma chloride measurement (moles/volume) 105 mmol/L 98-107 Carbon dioxide 20 mmol/L 21-32 Serum or plasma anion gap determination (moles/volume) 9 mmol/L 5-14 Serum or plasma urea nitrogen measurement (mass/volume ) 8 mg/dL 7-18 Serum or plasma creatinine measurement (mass/volume) 0.73 mg/dL 0.60-1.30 Serum or plasma urea nitrogen/creatinine mass ratio 11 NRG Serum or plasma creatinine measurement w ith calculation of estimated glomerular filtration rate > NRG Serum or plasma glucose measurement (mass/volume) 137 mg/dL 70-105 Serum or plasma calcium measurement (mass/volume) 6.7 mg/dL 8.5-10.1 Serum or plasma total bilirubin measurement (mass/volu me) 0.2 mg/dL 0.1-1.0 Serum or plasma alkaline phosphatase pk surement (enzymatic activity/volume) 58 U/L 40-136 Serum or plasma aspartate aminotransfera se measurement (enzymatic activity/volume) 17 U/L 5-34 Serum or plasma alanine aminotransferase measurement (enzymatic activity/volume) 15 U/L 0-55 Serum or plasma protein measurement (mass/volume) 3.0 g/dL 6.4-8.2 Serum or plasma albumin measurement (mass/volume) 1.2 g/dL 3.2-4.5 CALCIUM CORRECTED 8.9 mg/dL 8.5-10.1 Manual absolute plasma cell count - 11/26 01/14 20:53 Blood monocytes/100 leukocytes 0 % NRG Manual blood segmented neutrophils/100 leukocytes 73 % NRG Blood band neutrophils/100 leukocytes 6 % NRG Manual blood lymphocytes/100 leukocytes 14 % NRG Manual eosinophils/100 leukocytes in nose 2 % NRG Manual blood basophils/100 leukocytes 0 % NRG Manual blood metamyelocytes/100 leukocytes 3 % NRG Manual blood myelocytes/100 leukocytes 2 % NRG Encounters ACCT No. Visit Date/Time Discharge Status Pt. Type Provider Facility Loc./Unit Complaint [id number] 01/16/2015 15:02:00 01/16/2015 23:59: 59 CLS Outpatient PEMA YOUNGER PSYD [id number] 12/19/2014 14:58:00 12/19/2014 23:59: 59 SOUMYA Outpatient PEMA YOUNGER PSYD [id number] 12/06/2014 13:58:00 12/06/2014 23:59: 59 CLS Outpatient SONAL AVERY APRN [id number] 11/07/2014 14:56:00 11/07/2014 23:59: 59 CLS Outpatient PEMA YOUNGER PSYD [id number] 10/31/2014 14:43:00 10/31/2014 23:59: 59 CLS Outpatient PEMA YOUNGER PSYD [id number] 10/09/2014 14:48:00 10/09/2014 23:59: 59 CLS Outpatient PEMA YOUNGER PSYD [id number] 09/28/2014 11:53:00 09/28/2014 23:59: 59 CLS Outpatient SONAL AVERY APRN [id number] 09/18/2014 14:55:00 09/18/2014 23:59: 59 CLS Outpatient PEMA YOUNGER PSYD [id number] 09/13/2014 14:52:00 09/13/2014 23:59: 59 CLS Outpatient PEMA YOUNGER PSYD [id number] 09/05/2014 14:42:00 09/05/2014 23:59: 59 CLS Outpatient PEMA YOUNGER PSYD [id number] 08/29/2014 14:48:00 08/29/2014 23:59: 59 SOUMYA Outpatient PEMA YOUNGER PSYD [id number] 08/16/2014 14:54:00 08/16/2014 23:59: 59 CLS Outpatient PEMA YOUNGER PSYD [id number] 08/09/2014 14:57:00 08/09/2014 23:59: 59 CLS Outpatient MCCLEEARY PSRIKKI, PEMA BRO L [id number] 07/30/2014 13:47:00 07/30/2014 23:59: 59 CLS Outpatient MCCLEEARY PSRIKKI, PEMA BRO L [id number] 07/26/2014 14:51:00 07/26/2014 23:59: 59 CLS Outpatient MCCLEEARY PSRIKKI, PEMA BRO L [id number] 07/12/2014 14:50:00 07/12/2014 23:59: 59 CLS Outpatient MCCLEEARY PSYD, PEMA BRO L [id number] 07/05/2014 14:46:00 07/05/2014 23:59: 59 CLS Outpatient MCCLEEARY PSRIKKIPEMA L [id number] 06/21/2014 15:09:00 06/21/2014 23:59: 59 CLS Outpatient MCCLEEARY PSRIKKIPEMA L [id number] 06/12/2014 10:17:00 06/12/2014 23:59: 59 CLS Outpatient MCCLEEARY PSRIKKIPEMA L [id number] 06/01/2014 11:55:00 06/01/2014 23:59: 59 CLS Outpatient MCCLEEARY PSRIKKIPEMA L [id number] 05/23/2014 14:53:00 05/23/2014 23:59: 59 CLS Outpatient MCCLEEARY PSRIKKIPEMA L [id number] 05/16/2014 15:42:00 05/16/2014 23:59: 59 CLS Outpatient MCCLEEARY PSRIKKIPEMA L [id number] 05/08/2014 14:45:00 05/08/2014 23:59: 59 CLS Outpatient MCCLEEARY PSYD, PEMA BRO L [id number] 04/23/2014 15:36:00 04/23/2014 23:59: 59 CLS Outpatient MCCLEEARY PSRIKKIPEMA L [id number] 04/18/2014 14:19:00 04/18/2014 23:59: 59 CLS Outpatient MCCLEEARY PSPEMA BRANDT L [id number] 04/11/2014 14:51:00 04/11/2014 23:59: 59 CLS Outpatient MCCLEEARY PSPEMA BRANDT L [id number] 04/04/2014 14:54:00 04/04/2014 23:59: 59 CLS Outpatient MCCLEEARY PSPEMA BRANDT L [id number] 03/28/2014 14:55:00 03/28/2014 23:59: 59 CLS Outpatient MCCLEEARY PSPEMA BRANDT L [id number] 03/12/2014 13:36:00 03/12/2014 23:59: 59 CLS Outpatient DAPHNIELEEARY PSPEMA BRANDT L [id number] 03/05/2014 15:55:00 03/05/2014 23:59: 59 CLS Outpatient MCCLEEARY PSYD, PEMA BRO L [id number] 03/01/2014 15:06:00 03/01/2014 23:59: 59 CLS Outpatient MCCLEEARY PSPEMA BRANDT L [id number] 02/13/2014 15:56:00 02/13/2014 23:59: 59 CLS Outpatient MCCLEEARY PSPEMA BRANDT L [id number] 02/06/2014 15:01:00 02/06/2014 23:59: 59 CLS Outpatient ISAURO WHITE APRN [id number] 02/06/2014 13:00:00 02/06/2014 23:59: 59 CLS Outpatient DAPHNIELEEARY PSPEMA BRANDT L [id number] 01/31/2014 15:46:00 01/31/2014 23:59: 59 CLS Outpatient DAPHNIELEEARY PEMA VELOZ L [id number] 01/25/2014 12:53:00 01/25/2014 23:59: 59 CLS Outpatient MCCLEEARY PSPEMA BRANDT L [id number] 01/18/2014 13:15:00 01/18/2014 23:59: 59 CLS Outpatient MCCLEEARY PSYDPEMA L [id number] 01/16/2014 15:38:00 01/16/2014 23:59: 59 CLS Outpatient MCCLEEARY PSPEMA BRANDT L [id number] 01/04/2014 15:48:00 01/04/2014 23:59: 59 CLS Outpatient MCCLEEARY PSPEMA BRANDT L [id number] 12/28/2013 15:45:00 12/28/2013 23:59: 59 CLS Outpatient MCCLEEARY PSPEMA BRANDT L [id number] 12/14/2013 15:45:00 12/14/2013 23:59: 59 CLS Outpatient MCCLEEARY PEMA VELOZ L [id number] 12/07/2013 15:48:00 12/07/2013 23:59: 59 CLS Outpatient PEMA YOUNGER PSYD L [id number] 11/16/2013 15:53:00 11/16/2013 23:59: 59 CLS Outpatient PEMA YOUNGER PSYD L [id number] 11/13/2013 14:39:00 11/13/2013 23:59: 59 CLS Outpatient ISAURO WHITE APRN [id number] 10/25/2013 17:35:00 10/25/2013 23:59: 59 CLS Outpatient PEMA YOUNGER PSYD L [id number] 10/19/2013 12:59:00 10/19/2013 23:59: 59 CLS Outpatient PEMA YOUNGER PSYD L [id number] 10/10/2013 12:51:00 10/10/2013 23:59: 59 CLS Outpatient PEMA YOUNGER PSYD L [id number] 09/26/2013 13:39:00 09/26/2013 23:59: 59 CLS Outpatient LUIS FY PEMA VELOZ [id number] 09/14/2013 14:09:00 09/14/2013 23:59: 59 CLS Outpatient PEMA YOUNGER PSYD L [id number] 09/06/2013 16:25:00 09/06/2013 23:59: 59 CLS Outpatient PEMA YOUNGER PSYD [id number] 08/21/2013 14:40:00 08/21/2013 23:59: 59 CLS Outpatient PEMA YOUNGER PSYD L [id number] 08/15/2013 11:43:00 08/15/2013 23:59: 59 CLS Outpatient PEMA YOUNGER PSYD L [id number] 08/15/2013 11:22:00 08/15/2013 23:59: 59 CLS Outpatient IMELDA KINGNSARMAD Viraj [id number] 08/09/2013 11:05:00 08/09/2013 23:59: 59 CLS Outpatient PEMA YOUNGER PSYD L [id number] 07/26/2013 11:09:00 07/26/2013 23:59: 59 CLS Outpatient PEMA YOUNGER PSYD L [id number] 07/12/2013 11:06:00 07/12/2013 23:59: 59 CLS Outpatient AREN VELOZPEMA [id number] 06/28/2013 11:25:00 06/28/2013 23:59: 59 CLS Outpatient AREN LEBRONPEMA BRANDT [id number] 06/21/2013 11:06:00 06/21/2013 23:59: 59 CLS Outpatient DAPHNIEADAM PEMA VELOZ [id number] 06/07/2013 16:01:00 06/07/2013 23:59: 59 CLS Outpatient AREN PEMA VELOZ [id number] 12/13/2012 09:59:00 12/13/2012 23:59: 59 CLS Outpatient [id number] 11/30/2012 11:05:00 11/30/2012 23:59: 59 CLS Outpatient [id number] 05/31/2013 11:01:00 Document Registration [id number] 05/23/2013 11:08:00 Document Registration [id number] 05/18/2013 14:39:00 Document Registration [id number] 05/10/2013 10:52:00 Document Registration [id number] 03/10/2013 12:54:00 Document Registration [id number] 02/27/2013 14:04:00 Document Registration [id number] 02/16/2013 11:01:00 Document Registration [id number] 01/31/2013 11:00:00 Document Registration [id number] 01/17/2013 11:01:00 Document Registration [id number] 03/13/2020 15:20:00 03/13/2020 23:59:5 9 CLS Outpatient TERI IOANA K [facility] [id number] 11/20/2019 13:40:00 Document Registration [id number] 12/19/2019 20:09:00 22:56:00 DIS Emergency MIGUELINA KAT DO [facility] ER FS GI BLEED [id number] 12/15/2019 12:30:00 020 14:24:00 DIS Inpatient DENI JUAREZ DO [facility] IRF L HIP FX [id number] 12/12/2019 13:05:00 020 17:18:00 DIS Emergency SHELIA DAVID DO [facility] ER FS FALL; HIP PAIN [id number] 11/29/2019 19:47:00 23:35:00 DIS Emergency KLEVER KEBEDE MD [facility] ER FS LEFT SUBCAPITAL HIP FRA CTURE [id number] 11/23/2019 14:45:00 23:59:59 CLS Preadmit ANI VARMA DO [facility] RAD SCREENING [id number] 10/04/2019 10:10:00 23:59:59 CLS Preadmit ANI VARMA DO [facility] RAD SCREENING [id number] 09/26/2019 14:59:00 23:59:59 CLS Outpatient ANI VARMA DO [facility] RAD FS M06.811
== END 2020-03-26 14:19 | disposition home or self-care (01) ==
LOC: EDUNIT# 13:32 → ER FS 13:33
DX: M25.561 Pain in right knee (principal); Z96.642 Presence of left artificial hip joint; Z88.8 Allergy status to other drugs, medicaments and biological substances; Z79.899 Other long term (current) drug therapy; K59.09 Other constipation; F41.9 Anxiety disorder, unspecified; F31.9 Bipolar disorder, unspecified; F50.9 Eating disorder, unspecified; Z85.41 Personal history of malignant neoplasm of cervix uteri
CPT/HCPCS: 99283

== ENCOUNTER → 2020-03-29 | Outpatient (CLI) | payer MEDICARE, OTHER ==
[~2020-03-29] MED LIST changes: +DICL75TA2 PO
--- NOTE | 2020-03-29 11:17 | Diagnostic Imaging Report ---
INDICATION: Left knee pain. TIME OF EXAM: 11:07 AM 3 views of the left knee were obtained. Alignment is normal. Joint spaces are well maintained. Articular surfaces are smooth. No fracture, dislocation or effusion is seen. IMPRESSION: No acute bony abnormality is detected. Dictated by: Dictated on workstation # [id number]
== END ==
LOC: RAD FS 10:58
PROVIDERS: ATTEND Nurse Practitioner Family
DX: S89.92XD Unspecified injury of left lower leg, subsequent encounter (principal); X58.XXXD Exposure to other specified factors, subsequent encounter
CPT/HCPCS: 73562

== ENCOUNTER 2020-11-11 09:23 | Emergency (ER) | payer MEDICARE, OTHER ==
[~2020-11-11 09:23] MED LIST changes: +ALPR.25T PO; -ALPR0.254 PO; -FOLI1TAB24 PO; +FOLI1TAB33 PO; +METH-732 PO; -METH750T3 PO
[2020-11-11 09:33] VITALS: BP 142/71
--- NOTE | 2020-11-11 09:40 | ED Upper Extremity ---
General Chief Complaint: Upper Extremity Stated Complaint: LT SHOULDER PAIN Source: patient, EMS History of Present Illness Date Seen by Provider: Nov 11, 2020 Time Seen by Provider: 09:23 Initial Comments 65 yo female presents to the ED by EMS with complaints of left arm pain from her shoulder to her elbow. She denies any specific injury. She states that it was worse today when she was trying to do her exercises for her hip replacement. She had her hip replacement in November 2019. She denies any fall or direct trauma to her arm. She denies any numbness or tingling. She does have a history of rheumatoid arthritis. She has taken acetaminophen for pain. She states that in general she does not usually tolerate pain medicine very well. She has had rotator cuff issues especially on the right side. She thinks that the pain started yesterday but again was more noticeable this morning when she was trying to do her exercises so she called 911 and had him transported here to the emergency department. She did not try calling her primary care physician or see about trying to get into be seen for an office visit. Allergies and Home Medications Allergies Coded Allergies: prochlorperazine (Verified Allergy, Unknown, 11/29/19) Home Medications ALPRAZolam 0.25 Mg Tablet, 0.25 MG PO Q8H PRN for ANXIETY Prescribed by: DENI JUAREZ on 12/19/19 09 Acetaminophen 325 Mg Tablet, 650 MG PO Q4H PRN for PAIN-MILD (1-4), (Reported) Bisacodyl 10 Mg Supp.rect, 10 MG RC DAILY PRN for CONSTIPATION-4TH LINE, (Reported) Cyanocobalamin (Vitamin B-12) 1,000 Mcg Tablet, 1,000 MCG PO DAILY@0700 Prescribed by: DENI JUAREZ on 12/18/19918 Diclofenac Sodium 75 Mg Tablet.dr, 75 MG PO BID Prescribed by: EMMANUEL ABARCA on 03/26/20 1406 Estradiol 1 Each Patch.tdwk, 1 EACH TD Weekly, (Reported) Ferrous Gluconate 324 Mg Tablet, 324 MG PO DAILY W/ BREAKFAST, (Reported) Folic Acid 1 Mg Tablet, 1 MG PO DAILY, (Reported) Hydrocortisone 30 Gm Cream.appl, 0 GM TOP BID Prescribed by: DENI JUAREZ on 12/18/19918 Lamotrigine 150 Mg Tablet, 300 MG PO DAILY, (Reported) Magnesium Hydroxide 2,400 Mg/10 Ml Oral.susp, 10 MG PO DAILY PRN for CONSTIPATION-7TH LINE, (Reported) Methocarbamol 750 Mg Tablet, 750 MG PO TID, (Reported) Oxycodone HCl 5 Mg Tablet, 5-10 MG PO Q4H PRN for PAIN-SEVERE (8-10) Prescribed by: DENI JUAREZ on 12/18/19918 Pantoprazole Sodium 40 Mg Tablet.dr, 40 MG PO DAILY Prescribed by: DENI JUAREZ on 12/19/19 0946 Polyethylene Glycol 3350 17 Gm Powd.pack, 17 GM PO DAILY, (Reported) Prednisone 5 Mg Tablet, 7.5 MG PO DAILY W/ BREAKFAST, (Reported) Sennosides/Docusate Sodium 1 Each Tablet, 1 EACH PO BID, (Reported) Tramadol HCl 50 Mg Tablet, 25 MG PO Q8H PRN for PAIN-SEVERE (8-10) Prescribed by: KLEVER KEBEDE on 11/11/20 1027 Valacyclovir HCl 500 Mg Tablet, 1,000 MG PO TID Prescribed by: DENI JUAREZ on 12/18/19918 Patient Home Medication List Home Medication List Reviewed: Yes Review of Systems Constitutional: No chills, No fever EENTM: no symptoms reported Respiratory: no symptoms reported Cardiovascular: no symptoms reported Gastrointestinal: no symptoms reported Genitourinary: incontinence (chronic issue with leaking from her bladder) Musculoskeletal: see HPI Skin: no symptoms reported Psychiatric/Neurological: Denies Numbness, Denies Paresthesia Past Wzrnidn-Upzwem-Awejjj Hx Past Med/Social Hx: Reviewed Nursing Past Med/Soc Hx Patient Social History Alcohol Use: Denies Use Number of Drinks Today: Alcohol Beverage of Choice: Wine Smoking Status: Never a Smoker 2nd Hand Smoke Exposure: No Recent Hopitalizations: No Immunizations Up To Date Tetanus Booster (TDap): Unknown Date of Pneumonia Vaccine: Aug 16, 2019 Date of Influenza Vaccine: Jul 12, 2019 Seasonal Allergies Seasonal Allergies: No Past Medical History Surgeries: Yes (Left femur/hip surgery. ) Gallbladder, Hysterectomy, Orthopedic Respiratory: No Cardiac: No Neurological: No Genitourinary: No Gastrointestinal: Yes Chronic Constipation, Gall Bladder Disease Musculoskeletal: Yes (Right torn rotator cuff) Fractures Endocrine: No HEENT: No Cancer: Yes Cervical Did You Recieve Any Treatments: Yes What Type of Treatment Did You: Surgical Intervention Psychosocial: Yes Eating Disorder, Anxiety, Bipolar, Depression Integumentary: No Blood Disorders: No Family Medical History Heart Disease Physical Exam Vital Signs Vital Signs - First Documented 11/11/20 09:33 Temp 36.9 Pulse 105 Resp 13 B/P (MAP) 142/71 (94) Pulse Ox 100 O2 Delivery Room Air Capillary Refill : Height, Weight, BMI Height: '" Weight: lbs. oz. 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 Ack. Understanding Patient History: Problem w/Aneshesia Breath Sounds per Auscultation: Clear Heart Sounds per Auscultation: Regular Airway Exam: Mouth opens >2 fingers, Neck Full Range of Motion, Visulation of Uvula Progress/Results/Core Measures Results/Orders My Orders Orders - KLEVER KEBEDE MD Humerus 2 View Left (11/11/20 09:34) Ondansetron Oral Dissolve Tab (Zofran (11/11/20 10:19) Tramadol Tablet (Ultram Tablet) (11/11/20 10:19) Nursing Communication (Order) (11/11/20 10:19) Vital Signs/I&O 11/11/20 09:33 Temp 36.9 Pulse 105 Resp 13 B/P (MAP) 142/71 (94) Pulse Ox 100 O2 Delivery Room Air Progress Progress Note #1: Progress Note Patient reports taking acetaminophen at home for pain. No specific injury. Will obtain xrays of left humerus to see if any acute bony injury might show up to account for pain. Differential diagnosis would include occult fracture, rotator cuff injury, rheumatoid arthritis, osteoarthritis, muscle strain from doing exercises for hip. Progress Note #2: Time: 10:06 Progress Note xrays do not demonstrate any acute fracture or bony abnormality. Will try treating for soft tissue or rotator cuff pain and have her follow up with clinic for continued concerns and further evaluation since there has been no acute injury. Progress Note #3: Progress Note When reviewing results and plan with the patient she seemed unhappy to be told that she did not have a fracture and kept stating that her arm hurt a lot. I again asked if she had any injury or trauma to cause pain to her arm and she again denied any trauma or injury. I told her it could be a strain or she may have injured the rotator cuff on the left side and now it is going to hurt and be causing pain like she has on the right side. I offered a sling to rest her arm and stressed it would only be used for 2-3 days max so that she does not have her shoulder stiffen and freeze up from not being used. She agreed to this. For pain I asked if she could tolerate anything stronger than Acetaminophen and if she had taken anything stronger in the past or needed something stronger written. She stated she has Tramadol at home and said she could try taking 1/2 of a pill. I offered to give her a 1/2 of a pill here for pain and she agreed. Then she said she was getting nauseated with the pain and anxious about not knowing how she would get home since nobody wanted to get out in the snow to come get her. I gave her an emesis bag and opened it up for her, told her I would order a Zofran to help with her nausea and see if the nurses knew if PSYCHIATRIC or anyone had transport services available since we did not have that here in the ED. After I left the room I updated the nurse, placed the orders and worked on completing her discharge instructions for printing. The nurses within minutes came to inform me that despite giving the patient an emesis bag she had instead thrown up on herself, the bed and the floor. The pt refused nausea medicine, ricardo n medicine. After being placed in sling she almost immediately demanded to have it removed because she felt it was making her hurt worse. She also told the nurse that she could not believe that her arm and shoulder was not broken. Diagnostic Imaging Diagonstic Imaging: Xray Plain Films/CT/US/NM/MRI: other (humerus) Comments NAME: [facility] REC#: [id number] PT STATUS: REG ER : 1955 PHYSICIAN: KLEVER KEBEDE MD ADMIT DATE: 11/11/20/ER FS Draft Date of Exam:11/11/20 HUMERUS 2 VIEW LEFT INDICATION: Pain. 4 views were obtained FINDINGS: The alignment is normal. There is no fracture or dislocation. Soft tissues are unremarkable. Left lungs clear IMPRESSION: No acute fracture or dislocation. Dictated on workstation # [id number] Dict: 11/11/20 1002 Trans: 11/11/20 1004 [facility] [id number] Interpreted by: CHIQUI MISTRY MD Electronically signed by: Departure Impression Primary Impression: Left shoulder strain Qualified Codes: S46.912A - Strain of unspecified muscle, fascia and tendon at shoulder and upper arm level, left arm, initial encounter Additional Impression: Pain of left humerus Disposition: 01 HOME, SELF-CARE Condition: Stable Departure-Patient Inst. Decision time for Depature: 10:27 Referrals: IOANA WILLIAMSON MD (PCP/Family) Primary Care Physician Patient Instructions: How to Use a Shoulder Sling, Muscle Strain ED, Overuse Injuries (DC), Shoulder Pain ED Add. Discharge Instructions: Continue with Acetaminophen for pain. Check with Dr. Williamson for continued concerns and you may need to see O rthopedics or have further testing/imaging or Physical therapy to help with pain. Use sling for next 2-3 days to help rest your left arm. Then make sure to take your arm out and move it around so that your arm does not get stiff from not using it. You could try alternating ice and heat packs to your shoulder and arm to help with the pain All discharge instructions reviewed with patient and/or family. Voiced understanding. Scripts Tramadol HCl (Tramadol HCl) 50 Mg Tablet 25 MG PO Q8H PRN for PAIN-SEVERE (8-10) for 4 Days, #6 TAB 0 Refills Prov: KLEVER KEBEDE MD 11/11/20 KELVER KEBEDE MD Nov 11, 2020 09:40
--- NOTE | 2020-11-11 10:04 | Diagnostic Imaging Report ---
INDICATION: Pain. 4 views were obtained FINDINGS: The alignment is normal. There is no fracture or dislocation. Soft tissues are unremarkable. Left lungs clear IMPRESSION: No acute fracture or dislocation. Dictated by: Dictated on workstation # [id number]
[2020-11-11] MEDS ORDERED: ONDANSETRON 4 MG (ZOFRAN) ORAL DISSOLVE TAB PO STA (10:19)
[2020-11-11] MEDS ORDERED: TRM50T PO (10:27)
== END 2020-11-11 10:30 | disposition home or self-care (01) ==
LOC: EDUNIT# 09:23 → ER FS 09:24
DX: S46.912A Strain of unspecified muscle, fascia and tendon at shoulder and upper arm level, left arm, initial encounter (principal); F41.9 Anxiety disorder, unspecified; Z88.8 Allergy status to other drugs, medicaments and biological substances; Z85.41 Personal history of malignant neoplasm of cervix uteri; Z82.49 Family history of ischemic heart disease and other diseases of the circulatory system; Z79.52 Long term (current) use of systemic steroids; Y93.B9 Activity, other involving muscle strengthening exercises
CPT/HCPCS: 73060; A4565

== ENCOUNTER → 2021-09-11 | Outpatient (CLI) | payer MEDICARE, OTHER ==
[~2021-09-11] MED LIST changes: +TRM50T PO
== END ==
LOC: ORTHO 13:30
PROVIDERS: ATTEND Orthopaedic Surgery
DX: M12.511 Traumatic arthropathy, right shoulder (principal)

== ENCOUNTER → 2022-03-12 | Outpatient (CLI) | payer MEDICARE, OTHER | LOC: ORTHO 15:39 | PROVIDERS: ATTEND Orthopaedic Surgery | DX: M19.011 Primary osteoarthritis, right shoulder (principal) ==

== ENCOUNTER 2022-05-14 21:59 | Inpatient (IN) | payer MEDICARE, OTHER ==
[~2022-05-14] VITALS: Ht 167 cm; Wt 53.9 kg
[2022-05-14 22:24] LABS: BASOPHILS % (AUTO) 0 % (0-10); EOSINOPHILS # (AUTO) 0.1 10^3/uL (0.0-0.3); EOSINOPHILS % (AUTO) 1 % (0-10); HEMATOCRIT 27 % (35-52); HEMOGLOBIN 9.4 g/dL (11.5-16.0); LYMPHOCYTES # (AUTO) 1.2 10^3/uL (1.0-4.0); LYMPHOCYTES % (AUTO) 10 % (12-44); MEAN CORPUSCULAR HEMOGLOBIN 34 pg (25-34); MEAN CORPUSCULAR HGB CONC 35 g/dL (32-36); MEAN CORPUSCULAR VOLUME 96 fL (80-99); MEAN PLATELET VOLUME 8.3 fL (9.0-12.2); MONOCYTES # (AUTO) 0.8 10^3/uL (0.0-1.0); MONOCYTES % (AUTO) 7 % (0-12); NEUTROPHILS # (AUTO) 9.9 10^3/uL (1.8-7.8); NEUTROPHILS % (AUTO) 82 % (42-75); PLATELET COUNT 266 10^3/uL (130-400); WHITE BLOOD COUNT 12.1 10^3/uL (4.3-11.0)
--- NOTE | 2022-05-14 22:25 | ED Lower Extremity ---
General Chief Complaint: Lower Extremity Stated Complaint: MOBILITY ISSUES Source: patient Exam Limitations: no limitations History of Present Illness Date Seen by Provider: May 14, 2022 Time Seen by Provider: 22:02 Initial Comments 66-year-old female with past medical history of rheumatoid arthritis on methotrexate and prednisone as well as bipolar disorder coming in via EMS from home due to difficulty walking. Patient states she has had difficulty walking f or some time since her hip was replaced in 2019. Things have been slowly worsening and she felt like she was not able to walk tonight to go to the bathroom. She says she believes it is because of the excessive valgus in her knee since the hip replacement. She is to do physical therapy, but does not do that anymore. She does live alone, takes care of her self, gets around the ho use with a walker. She has someone come to help clean the house sometimes once or twice a week but otherwise does everything herself. Has lost about 5 pounds in the past several months from decreased p.o. she says. Denies any chest pain, shortness of breath, abdominal pain, nausea, vomiting, diarrhea, dysuria, focal weakness or numbness, headache, vision changes, speech changes, or any other concerns. EMS reports stable vitals, and that she physically walked from her chair, to the living room, through the kitchen, outside, and onto the EMS cot with minimal assistance. They placed an IV and started IV fluids. Allergies and Home Medications Allergies Coded Allergies: prochlorperazine (Verified Allergy, Unknown, 11/29/19) Patient Home Medication List Home Medication List Reviewed: Yes ALPRAZolam (Xanax Tablet) 0.25 Mg Tablet, 0.25 MG PO Q8H PRN for ANXIETY Prescribed by: DENI JUAREZ on 12/19/19 0946 Acetaminophen (Tylenol) 325 Mg Tablet, 650 MG PO Q4H PRN for PAIN-MILD (1-4), (Reported) Entered as Reported by: KEVIN ALLEN on 12/15/19 1055 Bisacodyl (Bisacodyl) 10 Mg Supp.rect, 10 MG RC DAILY PRN for CONSTIPATION-4TH LINE, (Reported) Entered as Reported by: KEVIN ALLEN on 12/15/19 1055 Cyanocobalamin (Vitamin B-12) (Vitamin B-12) 1,000 Mcg Tablet, 1,000 MCG PO DAILY@0700 Prescribed by: DENI JUAREZ on 12/18/19918 Diclofenac Sodium (Diclofenac Sodium) 75 Mg Tablet.dr, 75 MG PO BID Prescribed by: EMMANUEL ABARCA on 03/26/20 1406 Estradiol (Climara Patch Weekly 0.05mg/hr) 1 Each Patch.tdwk, 1 EACH TD Weekly, (Reported) Entered as Reported by: KEVIN ALLEN on 12/15/19 105 Ferrous Gluconate (Ferrous Gluconate) 324 Mg Tablet, 324 MG PO DAILY W/ BREAKFAST, (Reported) Entered as Reported by: KEVIN ALLEN on 12/15/19 105 Folic Acid (Folic Acid) 1 Mg Tablet, 1 MG PO DAILY, (Reported) Entered as Reported by: KEVIN ALLEN on 12/15/191054 Hydrocortisone (Proctozone-Hc) 30 Gm Cream.appl, 0 GM TOP BID Prescribed by: DENI JUAREZ on 12/18/19918 Lamotrigine (Lamictal) 150 Mg Tablet, 300 MG PO DAILY, (Reported) Entered as Reported by: KEVIN ALLEN on 12/15/19 105 Magnesium Hydroxide (Milk of Magnesia) 2,400 Mg/10 Ml Oral.susp, 10 MG PO DAILY PRN for CONSTIPATION-7TH LINE, (Reported) Entered as Reported by: KEVIN ALLEN on 12/15/19 105 Methocarbamol (Methocarbamol) 750 Mg Tablet, 750 MG PO TID, (Reported) Entered as Reported by: KEVIN ALLEN on 12/15/19 105 Oxycodone HCl (Roxicodone) 5 Mg Tablet, 5-10 MG PO Q4H PRN for PAIN-SEVERE (8- 10) Prescribed by: DENI JUAREZ on 12/18/19918 Pantoprazole Sodium (Protonix) 40 Mg Tablet.dr, 40 MG PO DAILY Prescribed by: DENI JUAREZ on 12/19/19 09 Polyethylene Glycol 3350 (Miralax) 17 Gm Powd.pack, 17 GM PO DAILY, (Reported) Entered as Reported by: KEVIN ALLEN on 12/15/19 105 Prednisone (Prednisone) 5 Mg Tablet, 7.5 MG PO DAILY W/ BREAKFAST, (Reported) Entered as Reported by: KEVIN ALLEN on 12/15/19 1055 Sennosides/Docusate Sodium (Senna S Tablet) 1 Each Tablet, 1 EACH PO BID, (Reported) Entered as Reported by: KEVIN ALLEN on 12/15/19 1055 Tramadol HCl (Tramadol HCl) 50 Mg Tablet, 25 MG PO Q8H PRN for PAIN-SEVERE (8- 10) Prescribed by: KLEVER KEBEDE on 11/11/20 1027 Valacyclovir HCl (Valtrex) 500 Mg Tablet, 1,000 MG PO TID Prescribed by: DENI JUAREZ on 12/18/19 0919 Review of Systems Constitutional: No fever EENTM: No blurred vision Respiratory: No cough Cardiovascular: No chest pain Gastrointestinal: No abdominal pain Genitourinary: no symptoms reported Musculoskeletal: No back pain Skin: no symptoms reported Psychiatric/Neurological: Weakness (General) All Other Systems Reviewed Negative Unless Noted: Yes Past Qotegdy-Gzpihm-Vhoprt Hx Immunizations Up To Date Tetanus Booster (TDap): Unknown Seasonal Allergies Seasonal Allergies: No Past Medical History Surgeries: Yes (Left femur/hip surgery. ) Gallbladder, Hysterectomy, Orthopedic Respiratory: No Cardiac: No Neurological: No Genitourinary: No Gastrointestinal: Yes Chronic Constipation, Gall Bladder Disease Musculoskeletal: Yes (Right torn rotator cuff) Fractures Endocrine: No HEENT: No Cancer: Yes Cervical Did You Recieve Any Treatments: Yes What Type of Treatment Did You: Surgical Intervention Psychosocial: Yes Eating Disorder, Anxiety, Bipolar, Depression Integumentary: No Blood Disorders: No Family Medical History Heart Disease Physical Exam Vital Signs Vital Signs - First Documented 05/14/22 22:00 Temp 36.8 Pulse 118 Resp 15 B/P (MAP) 148/76 (100) Pulse Ox 98 O2 Delivery Room Air Capillary Refill : Height, Weight, BMI Height: '" Weight: lbs. oz. kg; 19.00 BMI Method: General Appearance: WD/WN, no apparent distress, thin HEENT: PERRL/EOMI, normal ENT inspection, pharynx normal Neck: non-tender, full range of motion, supple, normal inspection Cardiovascular: regular rate, rhythm, no edema, no murmur Respiratory: chest non-tender, lungs clear, normal breath sounds, no respira tory distress, no accessory muscle use Gastrointestinal: normal bowel sounds, non tender, soft; No distended, No guarding, No rebound Back: normal inspection, no CVA tenderness, no vertebral tenderness Hips: bilateral hip non-tender, bilateral hip normal inspection, bilateral hip normal range of motion, bilateral hip no evidence of injury Legs: bilateral leg non-tender, bilateral leg normal inspection, bilateral leg normal range of motion, bilateral leg no evidence of injury Knees: bilateral knee non-tender, bilateral knee normal inspection, bilateral knee normal range of motion, bilateral knee no evidence of injury Ankles: bilateral ankle non-tender, bilateral ankle normal inspection, bilateral ankle normal range of motion, bilateral ankle no evidence of injury Neurologic/Tendon: normal sensation, normal motor functions, normal tendon functions 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 Ack. Understanding Patient History: Problem w/Aneshesia Breath Sounds per Auscultation: Clear Heart Sounds per Auscultation: Regular Airway Exam: Mouth opens >2 fingers, Neck Full Range of Motion, Visulation of Uvula Progress/Results/Core Measures Results/Orders Lab Results Laboratory Tests Test 05/14/22 22:11 05/14/22 22:20 Range/Units White Blood Count 12.1 H 4.3-11.0 10^3/uL Red Blood Count 2.78 L 3.80-5.11 10^6/uL Hemoglobin 9.4 L 11.5-16.0 g/dL Hematocrit 27 L 35-52 % Mean Corpuscular Volume 96 80-99 fL Mean Corpuscular Hemoglobin 34 25-34 pg Mean Corpuscular Hemoglobin Concent 35 32-36 g/dL Red Cell Distribution Width 12.6 10.0-14.5 % Platelet Count 266 130-400 10^3/uL Mean Platelet Volume 8.3 L 9.0-12.2 fL Immature Granulocyte % (Auto) 0 % Neutrophils (%) (Auto) 82 H 42-75 % Lymphocytes (%) (Auto) 10 L 12-44 % Monocytes (%) (Auto) 7 0-12 % Eosinophils (%) (Auto) 1 0-10 % Basophils (%) (Auto) 0 0-10 % Neutrophils # (Auto) 9.9 H 1.8-7.8 10^3/uL Lymphocytes # (Auto) 1.2 1.0-4.0 10^3/uL Monocytes # (Auto) 0.8 0.0-1.0 10^3/uL Eosinophils # (Auto) 0.1 0.0-0.3 10^3/uL Basophils # (Auto) 0.0 0.0-0.1 10^3/uL Immature Granulocyte # (Auto) 0.0 0.0-0.1 10^3/uL Sodium Level 124 *L 135-145 MMOL/L Potassium Level 4.0 3.6-5.0 MMOL/L Chloride Level 93 L 98-107 MMOL/L Carbon Dioxide Level 19 L 21-32 MMOL/L Anion Gap 12 5-14 MMOL/L Blood Urea Nitrogen 17 7-18 MG/DL Creatinine 0.80 0.60-1.30 MG/DL Estimat Glomerular Filtration Rate 81 BUN/Creatinine Ratio 21 Glucose Level 115 H 70-105 MG/DL Calcium Level 8.5 8.5-10.1 MG/DL Corrected Calcium 8.5 8.5-10.1 MG/DL Magnesium Level 1.9 1.6-2.4 MG/DL Total Bilirubin 0.3 0.1-1.0 MG/DL Aspartate Amino Transf (AST/SGOT) 14 5-34 U/L Alanine Aminotransferase (ALT/SGPT) 8 0-55 U/L Alkaline Phosphatase 60 40-136 U/L Total Protein 6.2 L 6.4-8.2 GM/DL Albumin 4.0 3.2-4.5 GM/DL Urine Color YELLOW Urine Clarity CLOUDY Urine pH 6.0 5-9 Urine Specific Mcdavid 1.015 L 1.016-1.022 Urine Protein NEGATIVE NEGATIVE Urine Glucose (UA) NEGATIVE NEGATIVE Urine Ketones TRACE H NEGATIVE Urine Nitrite POSITIVE H NEGATIVE Urine Bilirubin NEGATIVE NEGATIVE Urine Urobilinogen 0.2 < = 1.0 MG/DL Urine Leukocyte Esterase 2+ H NEGATIVE Urine RBC (Auto) NEGATIVE NEGATIVE Urine RBC RARE /HPF Urine WBC 10-25 H /HPF Urine Squamous Epithelial Cells 0-2 /HPF Urine Crystals NONE /LPF Urine Bacteria LARGE H /HPF Urine Casts NONE /LPF Urine Mucus SMALL H /LPF Urine Yeast FEW H /HPF Urine Culture Indicated YES My Orders Orders - JADE SMITH MD Cbc With Automated Diff (05/14/22 22:19) Comprehensive Metabolic Panel (05/14/22 22:19) Magnesium (05/14/22 22:19) Ua Culture If Indicated (05/14/22 22:19) Phosphorus (05/14/22 22:42) Osmolality Serum (05/14/22 22:44) Urine Culture (05/14/22 22:20) Ceftriaxone 1gm/50ml (1xdose) (05/14/22 23:00) Normal Saline 500 Ml Iv (05/14/22 22:56) Vital Signs/I&O 05/14/22 05/14/22 22:00 22:30 Temp 36.8 Pulse 118 102 Resp 15 17 B/P (MAP) 148/76 (100) 118/62 Pulse Ox 98 97 O2 Delivery Room Air Room Air Progress Progress Note : Progress Note 66-year-old female with above history coming in due to general weakness. ABCs were intact and vitals were stable on presentation. Physical exam with no focal abnormalities. An IV was placed and basic labs were obtained including electrolytes. Her sodium was low at 124 and most recent was around 134 here. Patient's friends came and were able to add to the history. Apparently the patient has been anorexic for many years, and is at a low baseline weight. She had dentures placed last week and because of the pain she has eaten significantly less. She is mildly tachycardic on exam. The history seems to fit hypovolemic hyponatremia. We will give a gentle bolus of fluids. Urinalysis with concerns for infection. She has had some urinary frequency symptoms while in the ER. We will treat it with a gram of ceftriaxone here. I contacted Dr. Juarez due to the hyponatremia with her general weakness. She recommended inpatient admission since she may need eventual placement. She will go to the [facility] floor for further evaluation and management Departure Impression Primary Impression: Hyponatremia Additional Impressions: Weakness Cystitis Disposition: 30 STILL A PATIENT Condition: Stable Admissions Decision to Admit Reason: Admit from ER (General) Decision to Admit/Date: May 14, 2022 Time/Decision to Admit Time: 22:50 Transfer Method of Transfer: EMS Departure-Patient Inst. Referrals: IOANA WILLIAMSON MD (PCP/Family) Primary Care Physician JADE SMITH MD May 14, 2022 22:25
[2022-05-14 22:33] LABS: BILIRUBIN,URINE NEGATIVE (NEGATIVE); CLARITY,URINE CLOUDY; COLOR,URINE YELLOW; GLUCOSE, URINE (UA) NEGATIVE (NEGATIVE); KETONES,URINE TRACE (NEGATIVE); LEUKOCYTE ESTERASE ,URINE 2+ (NEGATIVE); NITRITE,URINE POSITIVE (NEGATIVE); PROTEIN,URINE NEGATIVE (NEGATIVE)
[2022-05-14 22:40] LABS: BILIRUBIN,TOTAL 0.3 MG/DL (0.1-1.0); CALCIUM 8.5 MG/DL (8.5-10.1); CREATININE SERUM 0.8 MG/DL (0.60-1.30); MAGNESIUM 1.9 MG/DL (1.6-2.4)
[2022-05-14 22:41] LABS: TOTAL PROTEIN 6.2 GM/DL (6.4-8.2)
[2022-05-14 22:43] LABS: BACTERIA,URINE LARGE /HPF; RBC,URINE RARE /HPF; SQUAMOUS EPITHELIAL CELL,UR 0-2 /HPF; YEAST,URINE FEW /HPF
[2022-05-14] MEDS ORDERED: NS IV 500 ML 500 ML IV STA (22:56)
[2022-05-14] MEDS ORDERED: cefTRIAXone 1 GM PRE-MIX 50 ML IV ONE (23:00)
[2022-05-14] MEDS ORDERED: ACETAMINOPHEN 500 MG TAB (TYLENOL) PO ONE (23:15)
[2022-05-15] VITALS (7 sets, daily range): BP systolic 98–143; BP diastolic 55–75
[2022-05-15] MEDS ORDERED: ACETAMINOPHEN 500 MG TAB (TYLENOL) ONE (01:21)
[2022-05-15] MEDS ORDERED: ONDANSETRON 4 MG/2 ML (SDV) Z0FRAN IV PRN (01:30)
[2022-05-15] MEDS ORDERED: ACETAMINOPHEN 500 MG TAB (TYLENOL) PO PRN (01:30)
[2022-05-15] MEDS ORDERED: BISACODYL 10 MG SUPP (DULCOLAX) PR PRN (01:30)
[2022-05-15] MEDS ORDERED: CATHETER FLUSH 10 ML SYR IVP PRN (01:30)
[2022-05-15] MEDS ORDERED: ALPRAZolam 0.5 MG (XANAX) TAB PO PRN (01:30)
[2022-05-15] MEDS ORDERED: FAMOTIDINE 20 MG (PEPCID) TABLET PO PRN ×2 (01:30→09:00)
[2022-05-15] MEDS ORDERED: NAPROXEN 250 MG (NAPROSYN) TABLET PO PRN (01:30)
[2022-05-15] MEDS ORDERED: SENNA W/DOCUSATE (SENOKOT S) TABLET PO PRN (01:30)
[2022-05-15] MEDS: CATHETER FLUSH 10 ML SYR IVP SCH ×3 (05:04→21:32)
[2022-05-15 06:14] LABS: POTASSIUM 4.3 MMOL/L (3.6-5.0)
[2022-05-15 06:15] LABS: CALCIUM 8.8 MG/DL (8.5-10.1)
[2022-05-15 06:20] LABS: CREATININE SERUM 0.77 MG/DL (0.60-1.30)
[2022-05-15] MEDS ORDERED: NS IV 500 ML 500 ML IV PRN (08:30)
[2022-05-15] MEDS ORDERED: predniSONE 5 MG TAB PO NR (08:30)
--- NOTE | 2022-05-15 11:09 | Physical Therapy Evaluation ---
PT Evaluation-General Medical Diagnosis Admission Date May 15, 2022 at 00:34 Medical Diagnosis: hyponatremia Onset Date: May 15, 2022 Therapy Diagnosis Therapy Diagnosis: debility/weakness Precautions Precautions/Isolations: Fall Prevention, Standard Precautions Referral Physician: Sky Reason for Referral: Evaluation/Treatment Medical History Pertinent Medical History: Rheumatoid Arthritis Additional Medical History bipolar Current History ER secondary to mobility issues Reviewed History: Yes Social History Home: Single Level Current Living Status: Alone Entry Into Home: Level Entry Prior Prior Level of Function SCALE: Activities may be completed with or without assistive devices. 3-Suryeppkdj-pxghkhx completes the activity by him/herself with no assistance from a helper. 5-Set-up or Clean-up Assistance-helper sets up or cleans up; patient completes activity. [place] assists only prior to or following the activity. 4-Supervision or Touching Assistance-helper provides verbal cues and/or touching/steadying and/or contact guard assistance as patient completes activity. Assistance may be provided throughout the activity or intermittently. 3-Partial/Moderate Assistance-helper does LESS THAN HALF the effort. [place] lifts, holds or supports trunk or limbs, but provides less than half the effort. 2-Substantial/Maximal Assistance-helper does MORE THAN HALF the effort. [place] lifts or holds trunk or limbs and provides more than half the effort. 8-Duuumueup-uhaibh does ALL the effort. Patient does none of the effort to complete the activity. Or, the assistance of 2 or more helpers is required for the patient to complete the activity. If activity was not attempted, code reason: 7-Patient Refused. 9-Not Applicable-not attempted and the patient did not perform the activity before the current illness, exacerbation or injury. 10-Not Attempted due to Environmental Limitations-(lack of equipment, weather restraints, etc.). 88-Not Attempted due to Medical Conditions or Safety Concerns. Bed Mobility: 6 Transfers (B,C,W/C): 6 Gait: 6 Stairs: 9 Indoor Mobility (Ambulation): Independent Stairs: Not Applicalbe Prior Devices Use: Walker PT Evaluation-Current Subjective Patient agrees to PT. Pain Numeric Pain Scale: 5-Moderate Pain Location: Right, Left Location Body Site: Wrist Pain Description: Chronic Objective Patient Orientation: Normal For Age ROM/Strength ROM Lower Extremities bilateral LE WFL Strength Lower Extremities 3+/5 grossly bilateral LE Integumentary/Posture Integumentary refer to nursing notes Bowel Incontinence: No Bladder Incontinence: No Posture trunk flexed posture in stand with mobility Neuromuscular (Tone, Coordination, Reflexes) grossly intact (very slow with all movement) Sensory Vision: Functional Hearing: Functional Transfers Roll Left to Right (QC): 6 Lying to Sitting/Side of Bed(Q: 6 Sit to Stand (QC): 4 Chair/Ftq-xf-Zsnee Xfer(QC): 4 Toilet Transfer (QC): 4 (patient toileted independently and washed hands) Gait Does the Patient Walk?: Yes Mode of Locomotion: Walk Anticipated Mode of Locomotion: Walk Walk 10 feet (QC): 4 Walk 50 ft with 2 Turns(QC): 4 Walk 150 ft (QC): 4 Distance: 175' Gait Assistive Device: FWW Comments/Gait Description very slow, shuffle gait sequence with trunk rotation to left posture due to patient c/o right shoulder pain (Patient would not maintain correct posture with tactile and verbal cues going back into rotation after attaining correct posture) Balance Sitting Static: Normal Sitting Dynamic: Normal Standing Static: Fair Standing Dynamic: Fair Assessment/Needs 66 y.o. female, will benefit from skilled PT to address functional strength and mobility to improve current LOF. Patient appears to self limit due to arthritic pain. Increase activity as tolerated by patient. Rehab Potential: Fair PT [facility] Goals Accordion Tuner Goals PT Accordion Tuner Goals Time Frame: May 23, 2022 Roll Left & Right (QC): 6 Sit to Lying (QC): 6 Lying-Sitting on Side/Bed(QC): 6 Sit to Stand (QC): 6 Chair/Wnp-zz-Uhrla Xfer(QC): 6 Toilet Transfer (QC): 6 Walk 10 feet (QC): 6 Walk 50ft with 2 Turns (QC): 6 Walk 150 ft (QC): 6 PT Plan Problem List Problem List: Activity Tolerance, Functional Strength, Safety, Balance, Gait, Transfer Treatment/Plan Treatment Plan: Continue Plan of Care Treatment Plan: Education, Functional Activity Connie, Functional Strength, Gait, Safety, Therapeutic Exercise, Transfers Treatment Duration: May 23, 2022 Frequency: 6 times per week Estimated Hrs Per Day: .25 hour per day Patient and/or Family Agrees t: Yes Time/GCodes Time In: 1032 Time Out: 1100 Total Billed Treatment Time: 28 Total Billed Treatment 1 visit EVModC 14 min GT 14 min SUJIT GONZALES PT May 15, 2022 11:09
[2022-05-15] MEDS: NS IV 1000 ML 1,000 ML IV SCH ×2 (11:36→21:31)
[2022-05-15] MEDS ORDERED: BENZOCAINE 20% ORAL GEL (ORALJEL MAX ST) MM PRN (11:45)
--- NOTE | 2022-05-15 11:45 | Occupational Therapy Eval ---
OT Evaluation-General/PLF Medical Diagnosis Admission Date May 15, 2022 at 00:34 Medical Diagnosis: hyponatremia Onset Date: May 15, 2022 Therapy Diagnosis Therapy Diagnosis: decreased ADL status and weakness Precautions Precautions/Isolations: Fall Prevention, Standard Precautions Referral Physician: Sky Sharp Reason: Evaluation/Treatment Medical History Pertinent Medical History: Rheumatoid Arthritis Additional Medical History RA, bipolar, anxiety/depression, L hip sx, cervical cancer, R torn rotator cuff, and eating disorder. Current History EMS from home d/t difficulty walking Social History Home: Single Level Current Living Status: Alone Entry Into Home: Level Entry ADL-Prior Level of Function SCALE: Activities may be completed with or without assistive devices. 4-Yfohfyzqki-ooieynq completes the activity by him/herself with no assistance from a helper. 5-Set-up or Clean-up Assistance-helper sets up or cleans up; patient completes activity. [place] assists only prior to or following the activity. 4-Supervision or Touching Assistance-helper provides verbal cues and/or touching/steadying and/or contact guard assistance as patient completes activity. Assistance may be provided throughout the activity or intermittently. 3-Partial/Moderate Assistance-helper does LESS THAN HALF the effort. [place] lifts, holds or supports trunk or limbs, but provides less than half the effort. 2-Substantial/Maximal Assistance-helper does MORE THAN HALF the effort. [place] lifts or holds trunk or limbs and provides more than half the effort. 1-Iyxogtiyx-uubggt does ALL the effort. Patient does none of the effort to complete the activity. Or, the assistance of 2 or more helpers is required for the patient to complete the activity. If activity was not attempted, code reason: 7-Patient Refused. 9-Not Applicable-not attempted and the patient did not perform the activity be fore the current illness, exacerbation or injury. 10-Not Attempted due to Environmental Limitations-(lack of equipment, weather restraints, etc.). 88-Not Attempted due to Medical Conditions or Safety Concerns. ADL PLOF Comments Pt reports being IND with ADLs at [facility], but says she was experiencing increasing difficulty with tasks d/t BLE weakness. She has a SPC and FWW, but she has not been using FWW because she says it hurts her wrists to last picker the FWW during transfers. Pt also reports increasing difficulty with tasks d/t bilateral carpal tunnel and arthritis. Pt receives assistance with IADLs twice a week (helps with cooking, cleaning, and running errands). Self Care: Independent Functional Cognition: Independent DME/Equipment: Bath Bench, Grab Bars OT Current Status Subjective Pt seated in recliner on phone call upon OT arrival, agreeable to eval/tx. Mental Status/Objective Patient Orientation: Person, Place, Situation Current Dentures/Partials: Yes Hand Dominance: Right Upper Extremity ROM LUE: WFL RUE: limited d/t previous rotator cuff injury Upper Extremity Coordination diminished bilaterally d/t carpal tunnel ADL-Treatment Eating (QC): 6 (per nursing report) On/Off Footwear (QC): 4 (Supervision with gripper socks) Toileting Hygiene (QC): 4 (CGA-SBA per PT report, pt able to manage hygiene herself) Other Treatments Pt educated about the purpose and benefit of skilled OT services in increasing IND in ADLs, pt verbalized understanding. Pt provided information about PLOF and home set up, participated in BUE screen, and demonstrated footwear while seated in recliner. She declined all other ADLs at this time. Pt was thankful for OT visit, stating that she wants to receive skilled OT services to increase activity tolerance and BUE strength. Post tx, pt left in recliner with call light in reach and all needs met. Education OT Patient Education: Correct positioning, Energy conservation, Modified ADL techniques, Progress toward Goal/Update tx plan, Purpose of tx/functional activities, Rehab process Teaching Recipient: Patient Teaching Methods: Discussion Response to Teaching: Verbalize Understanding OT Lead Principal Technical Architect Goals Longterm Goals Time Frame: Jun 05, 2022 Oral Hygiene (QC): 6 Toileting Hygiene (QC): 6 Upper Body Dressing (QC): 6 Lower Body Dressing (QC): 6 On/Off Footwear (QC): 6 Additional Goals: 1-Demonstrate ADL Tasks, 2-Verbalize Understanding, 3- ImproveStrength/Connie 1=Demonstrate adherence to instructed precautions during ADL tasks. 2=Patient will verbalize/demonstrate understanding of assistive devices/modifications for ADL. 3=Patient will improve strength/tolerance for activity to enable patient to perform ADL's. OT Education/Plan Problem List/Assessment Assessment: Decreased Activ Tolerance, Decreased UE Strength, Impaired Coordination, Impaired I ADL's, Impaired Self-Care Skills, Restricted Funct UE ROM Pt would benefit from skilled OT services that focus on increasing activity tolerance and BUE strength in order to d/c to least restrictive environment and maximize IND in ADLs. Discharge Recommendations Plan/Recommendations: Continue POC Treatment Plan/Plan of Care Patient would benefit from OT for education, treatment and training to promote independence in ADL's, mobility, safety and/or upper extremity function for ADL's. Plan of Care: ADL Retraining, Functional Mobility, UE Funct Exercise/Act Treatment Duration: Jun 05, 2022 Frequency: 3 times per week (3-5x per week) Estimated Hrs Per Day: .25 hour per day Rehab Potential: Fair Time/GCodes Start Time: 11:10 Stop Time: 11:23 Total Time Billed (hr/min): 13 Billed Treatment Time 1, EDUARDO CABEZAS OT May 15, 2022 11:45
[2022-05-15] MEDS ORDERED: SODIUM CHLORIDE 1 GM TABLET PO NR (13:00)
[2022-05-15] MEDS ORDERED: PREN-8 PO (15:11)
[2022-05-15] MEDS ORDERED: METH2.5T PO (15:11)
[2022-05-15] MEDS ORDERED: LAMO150T4 PO (15:11)
[2022-05-15] MEDS ORDERED: ALEN70TA2 PO (15:11)
[2022-05-15] MEDS ORDERED: CITA40TA13 PO (15:11)
--- NOTE | 2022-05-15 19:19 | History & Physical-Hospitalist ---
History of Present Illness HPI/Chief Complaint Shireen Mills is a 66 year old female with PMH rheumatoid arthritis on methotrexate, bipolar disorder, who presented with weakness. She reports it has been progressing over the past few weeks. She has not been eating much lately. She reports a few pound weight loss. She denies fevers and chills. She denies shortness of breath and cough. She denies chest pain and palpitations. She denies abdominal pain, nausea, vomiting, and diarrhea. She denies dysuria. She reports urinary frequency and urgency. Source: patient Exam Limitations: no limitations Date Seen 05/15/22 Time Seen by a Provider: 11:25 Attending Physician Ozzy Kam DO PCP Admitting Physician: Jennifer Gage DO Attending Physician: Denia Rodriguez MD Referring Physician Date of Admission May 15, 2022 at 00:34 Home Medications & Allergies Home Medications Reviewed patient Home Medication Reconciliation performed by pharmacy medication reconciliations microbiological lab technician and/or nursing. Patients Allergies have been reviewed. Allergies Allergies Coded Allergies prochlorperazine (Verified Allergy, Unknown, 11/29/19) Past Nuzfvhe-Ogkijq-Uquhnu Hx Patient Social History Tobacco Use?: No Smoking Status: Never a Smoker Smokeless Tobacco Frequency: Never a User Use of E-Cig and/or Vaping dev: No Substance use?: No Alcohol Use?: No Pt feels they are or have been: No Immunizations Up To Date Date of Influenza Vaccine: Jul 12, 2019 First/Initial COVID19 Vaccinat: Moderna Second COVID19 Vaccination Jin: Moderna Tetanus Booster (TDap): Unknown Date of Pneumonia Vaccine: Aug 16, 2019 Seasonal Allergies Seasonal Allergies: No Current Status status: No status: No Advance Directives: Unable to obtain Communicates: Verbally Primary Language: Vincentian Preferred Spoken Language: Vincentian Is interpretation needed?: No Implanted or Applied Medical D: Orthopedic hardware Past Medical History Surgeries: Gallbladder, Hysterectomy, Orthopedic Chronic Constipation, Gall Bladder Disease Fractures Cervical Did You Recieve Any Treatments: Yes What Type of Treatment Did You: Surgical Intervention Eating Disorder, Anxiety, Bipolar, Depression Blood Disorders: No Family Medical History Heart Disease Review of Systems Constitutional: weakness EENTM: no symptoms reported Respiratory: no symptoms reported Cardiovascular: no symptoms reported Gastrointestinal: no symptoms reported Physical Exam Physical Exam Vital Signs Vital Signs - First Documented 05/14/22 22:00 Temp 36.8 Pulse 118 Resp 15 B/P (MAP) 148/76 (100) Pulse Ox 98 O2 Delivery Room Air Capillary Refill : Less Than 3 Seconds Height, Weight, BMI Height: '" Weight: lbs. oz. kg; 19.32 BMI Method: General Appearance: No Apparent Distress, Thin HEENT: PERRL/EOMI, Pharynx Normal Neck: Normal Inspection, Supple Respiratory: Lungs Clear, Normal Breath Sounds, No Respiratory Distress Cardiovascular: Regular Rate, Rhythm, No Edema, No Murmur Gastrointestinal: Normal Bowel Sounds, Non Tender, Soft Extremity: Normal Inspection, Non Tender, No Pedal Edema Neurologic/Psychiatric: Alert, Oriented x3, Normal Mood/Affect Skin: Normal Color, Warm/Dry Results Results/Procedures Labs Laboratory Tests 05/14/22 22:11 05/15/22 05:33 Patient resulted labs reviewed. Imaging: Reviewed Imaging Report Assessment/Plan Admission Diagnosis UTI Admission Status: Inpatient Order (span 2 midnights) Reason for Inpatient Admission: IV antibiotics Hyponatremia Debility Assessment and Plan UTI Not septic UA consistent with UTI Urine culture pending Rocephin Hyponatremia Mild IV fluids Debility PT/OT SW consulted for HH Bipolar Continue Lamictal RA Weekly methotrexate DVT prophylaxis: Lovenox Diagnosis/Problems Diagnosis/Problems (1) UTI (urinary tract infection) Status: Acute (2) Hyponatremia Status: Acute (3) Weakness Status: Acute (4) Bipolar disorder Status: Chronic (5) On methotrexate therapy Status: Chronic (6) Rheumatoid arthritis Status: Chronic DENIA RODRIGUEZ MD May 15, 2022 19:19
[2022-05-15] MEDS: SODIUM CHLORIDE 1 GM TABLET PO SCH (20:25)
[2022-05-15] MEDS ORDERED: ENOXAPARIN 40 MG/0.4 ML (LOVENOX) SYR SC SCH (21:30)
[2022-05-15] MEDS ORDERED: ALPRAZolam 0.5 MG (XANAX) TAB PO ONE (23:00)
[2022-05-16 03:37] VITALS: BP 103/64
[2022-05-16] MEDS ORDERED: MAGNESIUM 1 GM/100 ML IVPB 100 ML IV SCH (06:00)
[2022-05-16] MEDS ORDERED: KCL 20 MEQ TAB (K-DUR) PO SCH (06:00)
[2022-05-16] MEDS ORDERED: POTASSIUM CL 10MEQ/50ML IVPB 50 ML IV SCH (06:00)
[2022-05-16 06:45] LABS: HEMATOCRIT 25 % (35-52); HEMOGLOBIN 8.4 g/dL (11.5-16.0); MEAN CORPUSCULAR HEMOGLOBIN 34 pg (25-34); MEAN CORPUSCULAR HGB CONC 34 g/dL (32-36); MEAN CORPUSCULAR VOLUME 100 fL (80-99); MEAN PLATELET VOLUME 8.4 fL (9.0-12.2); PLATELET COUNT 232 10^3/uL (130-400); WHITE BLOOD COUNT 7.9 10^3/uL (4.3-11.0)
[2022-05-16] MEDS: CATHETER FLUSH 10 ML SYR IVP SCH (06:52)
[2022-05-16] MEDS: predniSONE 5 MG TAB PO SCH ×2 (06:52→07:32)
[2022-05-16] MEDS: NS IV 1000 ML 1,000 ML IV SCH (07:02)
[2022-05-16 07:13] LABS: CALCIUM 8.5 MG/DL (8.5-10.1)
[2022-05-16 07:17] LABS: CREATININE SERUM 0.69 MG/DL (0.60-1.30)
[2022-05-16 07:19] LABS: MAGNESIUM 2.2 MG/DL (1.6-2.4)
[2022-05-16 07:25] VITALS: BP 99/52
[2022-05-16] MEDS: SODIUM CHLORIDE 1 GM TABLET PO SCH (09:01)
--- NOTE | 2022-05-16 09:29 | Physical Therapy Daily Note ---
PT Daily Note-Current Subjective Patient states she is feeling better today and agrees to PT. Mental Status Patient Orientation: Normal For Age Attachments: IV Transfers SCALE: Activities may be completed with or without assistive devices. 8-Elfnrhaywc-wykucrf completes the activity by him/herself with no assistance from a helper. 5-Set-up or Clean-up Assistance-helper sets up or cleans up; patient completes activity. [place] assists only prior to or following the activity. 4-Supervision or Touching Assistance-helper provides verbal cues and/or touching/steadying and/or contact guard assistance as patient completes activity. Assistance may be provided throughout the activity or intermittently. 3-Partial/Moderate Assistance-helper does LESS THAN HALF the effort. [place] lifts, holds or supports trunk or limbs, but provides less than half the effort. 2-Substantial/Maximal Assistance-helper does MORE THAN HALF the effort. [place] lifts or holds trunk or limbs and provides more than half the effort. 3-Hihyjcdlc-prrrsc does ALL the effort. Patient does none of the effort to complete the activity. Or, the assistance of 2 or more helpers is required for the patient to complete the activity. If activity was not attempted, code reason: 7-Patient Refused. 9-Not Applicable-not attempted and the patient did not perform the activity before the current illness, exacerbation or injury. 10-Not Attempted due to Environmental Limitations-(lack of equipment, weather restraints, etc.). 88-Not Attempted due to Medical Conditions or Safety Concerns. Sit to Lying (QC): 6 Lying to Sitting/Side of Bed(Q: 6 Sit to Stand (QC): 6 Gait Training Distance: 300' Walk 10 feet (QC): 5 Walk 50 ft with 2 Turns(QC): 5 Walk 150 ft (QC): 5 Gait Assistive Device: FWW Assessment Improved gait sequence and distance on this date. Patient returned to bed with needs met. PT County Program Technician Goals [facility] Goals PT County Program Technician Goals Time Frame: May 23, 2022 Roll Left & Right (QC): 6 Sit to Lying (QC): 6 Lying-Sitting on Side/Bed(QC): 6 Sit to Stand (QC): 6 Chair/Zxz-db-Qodwh Xfer(QC): 6 Toilet Transfer (QC): 6 Walk 10 feet (QC): 6 Walk 50ft with 2 Turns (QC): 6 Walk 150 ft (QC): 6 PT Plan Treatment/Plan Treatment Plan: Continue Plan of Care Treatment Plan: Education, Functional Activity Connie, Functional Strength, Gait, Safety, Therapeutic Exercise, Transfers Treatment Duration: May 23, 2022 Frequency: 6 times per week Estimated Hrs Per Day: .25 hour per day Patient and/or Family Agrees t: Yes Time/GCodes Time In: 826 Time Out: 836 Total Billed Treatment Time: 10 Total Billed Treatment 1 visit FA 10 min SUJIT GONZALES PT May 16, 2022 09:29
[2022-05-16 11:17] VITALS: BP 91/51
[2022-05-16] MEDS ORDERED: NITR-65 PO (11:27)
[2022-05-16 13:25] VITALS: BP 91/51
--- NOTE | 2022-05-16 17:02 | Discharge Summary ---
Discharge Summary Hospital Course Was the Problem List Reviewed?: Yes Problems/Dx: (1) UTI (urinary tract infection) Status: Acute (2) Hyponatremia Status: Acute (3) Weakness Status: Acute (4) Bipolar disorder Status: Chronic (5) On methotrexate therapy Status: Chronic (6) Rheumatoid arthritis Status: Chronic Hospital Course Date of Admission: May 15, 2022 at 00:34 Admission Diagnosis: UTI, Hyponatremia Family Physician/Provider: Ozzy Kam DO Date of Discharge: 05/16/22 Discharge Diagnosis: UTI, Hyponatremia Hospital Course: Shireen Mills is a 66 year old female with PMH RA on methotrexate, bipolar disorder, who was admitted with UTI. She was not septic. She was started on IV Rocephin and transitioned to Macrobid. Her urine culture was growing E coli but final susceptibilities were not available at the time of discharge. She also had hyponatremia which improved with IV fluids and salt tabs. She was debilitated and was set up with home health on discharge. She was discharged home in stable condition. She should follow up with Dr. Kam in about a week. Labs and Pending Lab Test: Laboratory Tests 05/16/22 06:36: White Blood Count 7.9, Red Blood Count 2.49L, Hemoglobin 8.4L, Hematocrit 25L, Mean Corpuscular Volume 100H, Mean Corpuscular Hemoglobin 34, Mean Corpuscular Hemoglobin Concent 34, Red Cell Distribution Width 12.9, Platelet Count 232, Mean Platelet Volume 8.4L, Sodium Level 133L, Potassium Level 4.0, Chloride Level 107, Carbon Dioxide Level 19L, Anion Gap 7, Blood Urea Nitrogen 7, Creatinine 0.69, Estimat Glomerular Filtration Rate 95, BUN/Creatinine Ratio 10, Glucose Level 86, Calcium Level 8.5, Magnesium Level 2.2 Microbiology 05/14/22 Urine Culture - Preliminary, Resulted Escherichia coli Home Meds Active Macrobid 100 mg Capsule (Nitrofurantoin Monohyd/M-Cryst) 100 Mg Capsule 1 Tab PO BID 5 Days Reported Formula ( Vit W-Ca,Fe,FA(<1 mg)) 28 Mg Iron-800 Mcg Tablet 1 Each PO DAILY Fosamax (Alendronate Sodium) 70 Mg Tablet 70 Mg PO WED Citalopram HBr (Citalopram Hydrobromide) 40 Mg Tablet 40 Mg PO DAILY Lamotrigine 150 Mg Tablet 300 Mg PO DAILY TAKES 2 (150MG) TABS Methotrexate (Methotrexate Sodium) 2.5 Mg Tablet 15 Mg PO MON TAKES 6 (2.5MG) TABS Prednisone 5 Mg Tablet 5 Mg PO DAILY Folic Acid 1 Mg Tablet 1 Mg PO DAILY Assessment/Pt Instructions See instructions Discharge Planning: >30 minutes discharge planning Discharge Instructions Discharge Diet: No Restrictions Activity as Tolerated: Yes Discharge Physical Examination Vital Signs Vital Signs Date Time Temp Pulse Resp B/P (MAP) Pulse Ox O2 Delivery O2 Flow Rate FiO2 05/16/22 13:25 36.4 86 18 91/51 100 Room Air General Appearance: No Apparent Distress, Thin Respiratory: Lungs Clear, No Respiratory Distress Cardiovascular: Regular Rate, Rhythm, No Murmur Gastrointestinal: Normal Bowel Sounds, Soft Extremity: Normal Inspection, No Pedal Edema Skin: Normal Color, Warm/Dry Neurologic/Psychiatric: Alert, Normal Mood/Affect Allergies: Coded Allergies: prochlorperazine (Verified Allergy, Unknown, 11/29/19) Copy Copies To 1: OZZY KAM DO Discharge Summary Date of Admission May 15, 2022 at 00:34 Date of Discharge May 16, 2022 at 13:31 Discharge Date: May 16, 2022 Discharge Time: 13:31 Admission Diagnosis UTI Discharge Diagnosis UTI Hyponatremia Debility Bipolar RA (1) UTI (urinary tract infection) Status: Acute (2) Hyponatremia Status: Acute (3) Weakness Status: Acute (4) Bipolar disorder Status: Chronic (5) On methotrexate therapy Status: Chronic (6) Rheumatoid arthritis Status: Chronic DENIA RODRIGUEZ MD May 16, 2022 17:01
== END 2022-05-16 13:31 | disposition home health service (06) | DRG 690 ==
LOC: EDUNIT# 21:59 → ER FS 22:00 → 4TH 05-15 00:34
PROVIDERS: ADMIT Internal Medicine; ATTEND Internal Medicine
DX: N39.0 Urinary tract infection, site not specified (principal); E87.1 Hypo-osmolality and hyponatremia; B96.20 Unspecified Escherichia coli [E. coli] as the cause of diseases classified elsewhere; F31.9 Bipolar disorder, unspecified; M06.9 Rheumatoid arthritis, unspecified; Z79.52 Long term (current) use of systemic steroids; Z79.899 Other long term (current) drug therapy; Z85.41 Personal history of malignant neoplasm of cervix uteri
CPT/HCPCS: 36415; 80048; 80053; 81000; 83735; 83930; 84100; 85025; 85027; 87077; 87088; 87186; 99284

== ENCOUNTER 2022-05-19 11:10 | Inpatient (IN) | payer MEDICARE, OTHER ==
[~2022-05-19] VITALS: Ht 175.3 cm; Wt 57.1 kg
[~2022-05-19 11:10] MED LIST changes: +ALEN70TA2 PO; +CITA40TA13 PO; +LAMO150T4 PO; +NITR-65 PO; +PREN-8 PO
[2022-05-19] MEDS ORDERED: NS IV 500 ML 500 ML IV ONE (12:00)
--- NOTE | 2022-05-19 12:02 | ED Fall/Injury ---
General Chief Complaint: Trauma-Non Activation Stated Complaint: FALL R HIP PAIN Source: patient Exam Limitations: no limitations History of Present Illness Date Seen by Provider: May 19, 2022 Time Seen by Provider: 11:41 Initial Comments Patient presents the ER by EMS from [place] where she lives with chief complaint that last night she was sitting on a stool and fell off while changing her socks and is now having some shortening external rotation and pain in her right hip. She is had her left hip replaced by a orthopedic surgeon in many years ago. She does not have heart or lung history. She denies diabetes hypertension or hyperlipidemia. She is on Fosamax for low bone mineral density and methotrexate and prednisone for rheumatoid arthritis. She takes Lamictal for bipolar. She received 50 mcg of fentanyl from EMS when they picked her up and another 50 mcg of fentanyl just before arrival. The patient has asked that she not receive any blood products. Allergies and Home Medications Allergies Coded Allergies: prochlorperazine (Verified Allergy, Unknown, 11/29/19) Patient Home Medication List Home Medication List Reviewed: Yes Alendronate Sodium (Fosamax) 70 Mg Tablet, 70 MG PO WED, (Reported) Entered as Reported by: KEVIN ALLEN on 05/15/22 151 Citalopram Hydrobromide (Citalopram HBr) 40 Mg Tablet, 40 MG PO DAILY, (Reported) Entered as Reported by: KEVIN ALLEN on 05/15/22 1511 Folic Acid (Folic Acid) 1 Mg Tablet, 1 MG PO DAILY, (Reported) Entered as Reported by: KEVIN ALLEN on 12/15/19 1055 Lamotrigine (Lamotrigine) 150 Mg Tablet, 300 MG PO DAILY, (Reported) Entered as Reported by: KEVIN ALLEN on 05/15/22 1511 Methotrexate Sodium (Methotrexate) 2.5 Mg Tablet, 15 MG PO MON, (Reported) Entered as Reported by: KEVIN ALLEN on 05/15/22 1511 Nitrofurantoin Monohyd/M-Cryst (Macrobid 100 mg Capsule) 100 Mg Capsule, 1 TAB PO BID Prescribed by: DENIA RODRIGUEZ on 05/16/22 1127 Prednisone (Prednisone) 5 Mg Tablet, 5 MG PO DAILY, (Reported) Entered as Reported by: KEVIN ALLEN on 12/15/19 1055 Vit W-Ca,Fe,FA(<1 mg) ( Formula) 28 Mg Iron-800 Mcg Tablet, 1 EACH PO DAILY, (Reported) Entered as Reported by: KEVIN ALLEN on 05/15/22 1511 Discontinued Medications ALPRAZolam (Xanax Tablet) 0.25 Mg Tablet, 0.25 MG PO Q8H PRN for ANXIETY Discontinued Reason: Duplicate Order Prescribed by: DENI JUAREZ on 12/19/19 0946 Acetaminophen (Tylenol) 325 Mg Tablet, 650 MG PO Q4H PRN for PAIN-MILD (1-4), (Reported) Discontinued Reason: Duplicate Order Entered as Reported by: KEVIN ALLEN on 12/15/19 105 Bisacodyl (Bisacodyl) 10 Mg Supp.rect, 10 MG RC DAILY PRN for CONSTIPATION-4TH LINE, (Reported) Discontinued Reason: Duplicate Order Entered as Reported by: KEVIN ALLEN on 12/15/19 1055 Cyanocobalamin (Vitamin B-12) (Vitamin B-12) 1,000 Mcg Tablet, 1,000 MCG PO DAILY@0700 Discontinued Reason: Duplicate Order Prescribed by: DENI JUAREZ on 12/18/19918 Diclofenac Sodium (Diclofenac Sodium) 75 Mg Tablet.dr, 75 MG PO BID Discontinued Reason: Duplicate Order Prescribed by: EMMANUEL ABARCA on 03/26/20 1406 Estradiol (Climara Patch Weekly 0.05mg/hr) 1 Each Patch.tdwk, 1 EACH TD Weekly, (Reported) Discontinued Reason: Duplicate Order Entered as Reported by: KEVIN ALLEN on 12/15/19 1055 Ferrous Gluconate (Ferrous Gluconate) 324 Mg Tablet, 324 MG PO DAILY W/ BREAKFAST, (Reported) Discontinued Reason: Duplicate Order Entered as Reported by: KEVIN ALLEN on 12/15/19 1055 Hydrocortisone (Proctozone-Hc) 30 Gm Cream.appl, 0 GM TOP BID Discontinued Reason: Duplicate Order Prescribed by: DENI JUAREZ on 12/18/19918 Lamotrigine (Lamictal) 150 Mg Tablet, 300 MG PO DAILY, (Reported) Discontinued Reason: Duplicate Order Entered as Reported by: KEVIN ALLEN on 12/15/19 105 Magnesium Hydroxide (Milk of Magnesia) 2,400 Mg/10 Ml Oral.susp, 10 MG PO DAILY PRN for CONSTIPATION-7TH LINE, (Reported) Discontinued Reason: Duplicate Order Entered as Reported by: KEVIN ALLEN on 12/15/19 1055 Methocarbamol (Methocarbamol) 750 Mg Tablet, 750 MG PO TID, (Reported) Discontinued Reason: Duplicate Order Entered as Reported by: KEVIN ALLEN on 12/15/19 1055 Oxycodone HCl (Roxicodone) 5 Mg Tablet, 5-10 MG PO Q4H PRN for PAIN-SEVERE (8- 10) Discontinued Reason: Duplicate Order Prescribed by: DENI JUAREZ on 12/18/19 09 Pantoprazole Sodium (Protonix) 40 Mg Tablet.dr, 40 MG PO DAILY Discontinued Reason: Duplicate Order Prescribed by: DENI JUAREZ on 12/19/19 09 Polyethylene Glycol 3350 (Miralax) 17 Gm Powd.pack, 17 GM PO DAILY, (Reported) Discontinued Reason: Duplicate Order Entered as Reported by: KEVIN ALLEN on 12/15/19 1055 Sennosides/Docusate Sodium (Senna S Tablet) 1 Each Tablet, 1 EACH PO BID, (Reported) Discontinued Reason: Duplicate Order Entered as Reported by: KEVIN ALLEN on 12/15/19 1055 Tramadol HCl (Tramadol HCl) 50 Mg Tablet, 25 MG PO Q8H PRN for PAIN-SEVERE (8- 10) Discontinued Reason: Duplicate Order Prescribed by: KLEVER KEBEDE on 11/11/20 1027 Valacyclovir HCl (Valtrex) 500 Mg Tablet, 1,000 MG PO TID Discontinued Reason: Duplicate Order Prescribed by: DENI JUAREZ on 12/18/19918 Review of Systems Review of Systems Constitutional: No chills, No diaphoresis Eyes: Denies Blindness, Denies Blurred Vision Ears, Nose, Mouth, Throat: denies ear pain, denies ear discharge Respiratory: No cough, No hemoptysis, No phlegm, No short of breath Cardiovascular: No chest pain, No edema, No Hx of Intervention Gastrointestinal: No abdominal pain, No constipation, No diarrhea Genitourinary: No decreased output, No discharge : No Musculoskeletal: see HPI; No back pain; joint pain Skin: No change in color, No change in hair/nails Psychiatric/Neurological: Denies Anxiety, Denies Depressed All Other Systems Reviewed Negative Unless Noted: Yes Past Rtszehd-Vtkujp-Ogpvvi Hx Patient Social History Tobacco Use?: No Use of E-Cig and/or Vaping dev: No Substance use?: No Alcohol Use?: No Pt feels they are or have been: No Immunizations Up To Date Tetanus Booster (TDap): Unknown Influenza Vaccine Up-to-Date: Yes; Up-to-Date First/Initial COVID19 Vaccinat: Moderna Second COVID19 Vaccination Jin: Moderna Seasonal Allergies Seasonal Allergies: No Past Medical History Surgery/Hospitalization HX: RA, DEPRESSION L HIP REPLACEMENT, HYSTO, HANNA Surgeries: Yes (Left femur/hip surgery. ) Gallbladder, Hysterectomy, Orthopedic Respiratory: No Cardiac: No Neurological: No Genitourinary: No Gastrointestinal: Yes Chronic Constipation, Gall Bladder Disease Musculoskeletal: Yes (Right torn rotator cuff) Fractures Endocrine: No HEENT: No Cancer: Yes Cervical Did You Recieve Any Treatments: Yes What Type of Treatment Did You: Surgical Intervention Psychosocial: Yes Eating Disorder, Anxiety, Bipolar, Depression Integumentary: No Blood Disorders: No Family Medical History Heart Disease Physical Exam Vital Signs Vital Signs - First Documented 05/19/22 11:46 Temp 37.0 Pulse 105 Resp 16 B/P (MAP) 156/82 (106) Capillary Refill : Height, Weight, BMI Height: '" Weight: lbs. oz. kg; 19.32 BMI Method: General Appearance: WD/WN, mild distress HEENT: PERRL/EOMI (3 mm without evidence of raccoon eyes), normal ENT inspection, TMs normal (Negative for hemotympanums or torre sign), pharynx normal Neck: non-tender, full range of motion, supple, normal inspection Cardiovascular: normal peripheral pulses, regular rate, rhythm, tachycardia Respiratory: chest non-tender, lungs clear, normal breath sounds, no respiratory distress, no accessory muscle use Peripheral Pulses: 2+ Radial Pulses (R), 2+ Radial Pulses (L) Gastrointestinal: normal bowel sounds, non tender, soft, no organomegaly Extremities: no pedal edema, normal capillary refill, other (Tenderness over the greater trochanter of the right hip and on movement of the right hip. 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 Ack. Understanding Patient History: Problem w/Aneshesia Breath Sounds per Auscultation: Clear Heart Sounds per Auscultation: Regular Airway Exam: Mouth opens >2 fingers, Neck Full Range of Motion, Visulation of Uvula Progress/Results/Core Measures Results/Orders Lab Results Laboratory Tests Test 05/19/22 12:04 05/19/22 12:46 Range/Units Urine Color YELLOW Urine Clarity CLEAR Urine pH 6.5 5-9 Urine Specific [place] 1.020 1.016-1.022 Urine Protein NEGATIVE NEGATIVE Urine Glucose (UA) NEGATIVE NEGATIVE Urine Ketones 1+ H NEGATIVE Urine Nitrite NEGATIVE NEGATIVE Urine Bilirubin NEGATIVE NEGATIVE Urine Urobilinogen 0.2 < = 1.0 MG/DL Urine Leukocyte Esterase 2+ H NEGATIVE Urine RBC (Auto) TRACE-I H NEGATIVE Urine RBC RARE /HPF Urine WBC 10-25 H /HPF Urine Squamous Epithelial Cells 5-10 /HPF Urine Crystals NONE /LPF Urine Bacteria FEW H /HPF Urine Casts NONE /LPF Urine Mucus NEGATIVE /LPF Urine Culture Indicated YES White Blood Count 7.9 4.3-11.0 10^3/uL Red Blood Count 2.66 L 3.80-5.11 10^6/uL Hemoglobin 8.8 L 11.5-16.0 g/dL Hematocrit 27 L 35-52 % Mean Corpuscular Volume 100 H 80-99 fL Mean Corpuscular Hemoglobin 33 25-34 pg Mean Corpuscular Hemoglobin Concent 33 32-36 g/dL Red Cell Distribution Width 13.1 10.0-14.5 % Platelet Count 251 130-400 10^3/uL Mean Platelet Volume 8.2 L 9.0-12.2 fL Immature Granulocyte % (Auto) 0 % Neutrophils (%) (Auto) 81 H 42-75 % Lymphocytes (%) (Auto) 8 L 12-44 % Monocytes (%) (Auto) 10 0-12 % Eosinophils (%) (Auto) 0 0-10 % Basophils (%) (Auto) 1 0-10 % Neutrophils # (Auto) 6.4 1.8-7.8 10^3/uL Lymphocytes # (Auto) 0.6 L 1.0-4.0 10^3/uL Monocytes # (Auto) 0.8 0.0-1.0 10^3/uL Eosinophils # (Auto) 0.0 0.0-0.3 10^3/uL Basophils # (Auto) 0.0 0.0-0.1 10^3/uL Immature Granulocyte # (Auto) 0.0 0.0-0.1 10^3/uL Neutrophils % (Manual) 86 % Lymphocytes % (Manual) 9 % Monocytes % (Manual) 5 % Hypochromasia SLIGHT Tano Cells SLIGHT Sodium Level 132 L 135-145 MMOL/L Potassium Level 4.3 3.6-5.0 MMOL/L Chloride Level 101 98-107 MMOL/L Carbon Dioxide Level 22 21-32 MMOL/L Anion Gap 9 5-14 MMOL/L Blood Urea Nitrogen 12 7-18 MG/DL Creatinine 0.67 0.60-1.30 MG/DL Estimat Glomerular Filtration Rate 96 BUN/Creatinine Ratio 18 Glucose Level 100 70-105 MG/DL Calcium Level 8.5 8.5-10.1 MG/DL Corrected Calcium 9.0 8.5-10.1 MG/DL Total Bilirubin 0.4 0.1-1.0 MG/DL Aspartate Amino Transf (AST/SGOT) 24 5-34 U/L Alanine Aminotransferase (ALT/SGPT) 16 0-55 U/L Alkaline Phosphatase 41 40-136 U/L Total Protein 6.0 L 6.4-8.2 GM/DL Albumin 3.4 3.2-4.5 GM/DL My Orders Orders - JORGE HACKETT Ct Head/Cervical Spine Wo (05/19/22 11:53) Ed Iv/Invasive Line Start (05/19/22 11:53) Ns Iv 500 Ml (Sodium Chloride 0.9%) (05/19/22 12:00) Chest 1 View, Ap/Pa Only (05/19/22 11:53) Hip, Right, 2 Views (05/19/22 11:53) Catheter(Urinary) Insert & Ass 03,15 (05/19/22 11:53) Ekg Tracing (05/19/22 11:53) Continuous Ekg Monitoring (05/19/22 11:53) Cbc With Automated Diff (05/19/22 11:53) Comprehensive Metabolic Panel (05/19/22 11:53) Fentanyl Inj (Sublimaze Injection) (05/19/22 12:30) End Tidal Co2 (05/19/22 12:26) Fentanyl Inj (Sublimaze Injection) (05/19/22 12:27) Ua Culture If Indicated (05/19/22 12:39) Manual Differential (05/19/22 12:46) Urine Culture (05/19/22 12:04) Ketamine Syringe (Ketamine Syringe) (05/19/22 14:00) Lactated Ringers (Lr 1000 Ml Iv Solution (05/19/22 14:00) Creatine Kinase (05/19/22 13:54) Ed Admission (Communication) (05/19/22 13:56) Type And Screen (05/19/22 13:57) Medications Given in ED Current Medications Medications Dose Ordered Sig/Lesley Route Start Time Stop Time Status Last Admin Dose Admin Fentanyl Citrate 50 mcg ONCE ONCE IVP 05/19/22 12:30 05/19/22 12:31 DC 05/19/22 12:29 50 MCG Sodium Chloride 500 ml @ 0 mls/hr Q0M ONCE IV 05/19/22 12:00 05/19/22 12:01 DC 05/19/22 12:29 500 MLS/HR Vital Signs/I&O 05/19/22 11:46 Temp 37.0 Pulse 105 Resp 16 B/P (MAP) 156/82 (106) Progress Progress Note : Time: 12:10 Progress Note X-ray of the chest EKG labs and a Freire catheter in preparation for anticipated right hip fracture. CT of the head and C-spine. She declined a thing else for pain at this time. She is mentating well and protecting her own airway. Initial ECG Impression Date: May 19, 2022 Initial ECG Impression Time: 12:14 Initial ECG Rate: 95 Initial ECG Rhythm: Normal Sinus Initial ECG Intervals: Normal Initial ECG Impression: Normal Comment Normal sinus rhythm without evident clinical relevant ST aberration. Diagnostic Imaging Diagonstic Imaging: Xray Plain Films/CT/US/NM/MRI: chest Comments [facility], [place] NAME: [facility] REC#: [id number] PT STATUS: REG ER : 1955 PHYSICIAN: JORGE HACKETT MD ADMIT DATE: 05/19/22/ER Draft Date of Exam:05/19/22 CHEST 1 VIEW, AP/PA ONLY INDICATION: Fall, hip pain. COMPARISON: November 29, 2019. TECHNIQUE: Two radiographs of the chest dated May 19, 2022. FINDINGS: The cardiac silhouette is within normal limits in size. No significant pulmonary vascular congestion. 1.4 cm nodular density is noted overlying the right lung base. Otherwise, the lungs appear clear. The lungs are hyperinflated. No pleural effusion. No pneumothorax. Scattered osseous degenerative changes, including significant degenerative changes in the right shoulder. Surgical clips within the right upper abdomen. No acute osseous abnormality. IMPRESSION: 1.4 cm nodular density overlying the right lung base. This appears to be a change from the prior examination. This could simply relate to superimposition of structures, including ribs and underlying pulmonary parenchyma, though pulmonary nodule needs to be excluded. Recommend dedicated frontal and lateral radiographs of the chest for further evaluation. If this persists, then a CT of the chest would be recommended. Background pulmonary hyperinflation. Dictated on workstation # [id number] Dict: 05/19/22 1310 Trans: 05/19/22 1318 [id number] Interpreted by: NERISSA LEON MD Electronically signed by: Reviewed: Reviewed by Me Diagonstic Imaging: Xray Plain Films/CT/US/NM/MRI: hip (r) Comments [facility] [place] NAME: [facility] REC#: [id number] PT STATUS: REG ER : 1955 PHYSICIAN: JORGE HACKETT MD ADMIT DATE: 05/19/22/ER Draft Date of Exam:05/19/22 HIP, RIGHT, 2 VIEWS INDICATION: Hip pain. COMPARISON: None available. TECHNIQUE: Two radiographs of the right hip dated 05/19/2022. FINDINGS: Acute mildly comminuted right intertrochanteric femoral fracture is recommended. Fracture is mildly impacted with resultant varus angulation. [place] anterior angulation is also noted. The lesser trochanter fragments are medially displaced. No additional fracture or dislocation. Left hip arthroplasty is minimally visualized. Multiple surgical clips are seen overlying the pelvis, particularly on the right. IMPRESSION: Acute mildly comminuted right intertrochanteric femoral fracture with resultant varus configuration and mild apex anterior angulation. Dictated on workstation # [id number] Dict: 05/19/22 1313 Trans: 05/19/22 1317 [id number] Interpreted by: NERISSA LEON MD Electronically signed by: Reviewed: Reviewed by Me Diagonstic Imaging: CT Plain Films/CT/US/NM/MRI: c-spine, head Comments [facility] [place] NAME: [facility] REC#: [id number] PT STATUS: REG ER : 1955 PHYSICIAN: JORGE HACKETT MD ADMIT DATE: 05/19/22/ER Draft Date of Exam:05/19/22 CT HEAD/CERVICAL SPINE WO PROCEDURE: CT head and CT cervical spine without contrast. TECHNIQUE: Multiple contiguous axial images were obtained through the brain and cervical spine without the use of intravenous contrast. Sagittal and coronal reformations through the cervical spine were then performed. Auto Exposure Controls were utilized during the CT exam to meet ALARA standards for radiation dose reduction. INDICATION: Fall at home. COMPARISON: No priors. FINDINGS: CT HEAD: Cerebral cortical atrophy is noted, more advanced than would be anticipated for age. There is chronic periventricular white matter hypodensity, also likely small vessel disease and greater than typically encountered in this age; correlate for risk factors of vasculopathy. There are some intracranial atherosclerotic vascular calcifications as a chronic finding. No findings of cortical edema. No sulcal effacement. There is no hemorrhage, and there are no abnormal extra-axial fluid collections. There is no evidence for an elevation of the intracranial pressures. Orbits, sinuses, and calvarium all appeared nonacute. No pneumocephalus. No fracture demonstrated. CT CERVICAL SPINE: There is retrolisthesis of C2 on C3 and anterolisthesis of C3 on C4. Posterior cortices at those levels were off 3 mm and 5 mm respectively. There is trace 1 mm anterolisthesis of C4 on C5 and trace retrolisthesis of C5 on C6. The malalignments are accompanied by bulky degenerative facet arthrosis and severe spondylosis as well as uncovertebral joint spurring. No cervical fracture or facet joint dislocation, however. There is no evidence for paraspinal hemorrhage. Hyoid structures of the larynx and the thyroid cartilage showed no traumatic deformity. Central skull base appeared intact, and the craniocervical relationship is intact. There is a moderate severity of canal stenosis at C2-C3 where there is mild left foraminal narrowing. At C3-C4, there is mild canal stenosis with moderate left and mild right foraminal narrowing. At C5-C6, there is moderate canal with [id number] bony right foraminal stenosis. At C6-C7, there is moderate canal and moderate biforaminal narrowing. IMPRESSION: CT HEAD: Somewhat premature senescent pattern with atrophy and nonspecific white matter disease, but no hemorrhage, fracture, or acute appearing pathology. CT CERVICAL SPINE: Extensive degenerative changes with multilevel presumptive degenerative grade 1 listheses without fracture or dislocation. Canal and bony foraminal stenoses on a chronic basis noted. Dictated on workstation # [id number] Dict: 05/19/22 1300 Trans: 05/19/22 1316 [id number] Interpreted by: PEMA CASTAÑEDA Electronically signed by: Reviewed: Reviewed by Me Departure Communication (Admissions) Time/Spoke to Admitting Phy: 13:[address] Pradhan. Spoke to Dr. Up at 1352 and she agrees to admit the patient. N.p.o. at midnight. She will put in queued orders. Time/Spoke to Consulting Phy: 13:[address] SHEETS and he will not be able to get her case done today so n.p.o. at midnight. Agrees to consult orthopedics. Impression Primary Impression: Fall Qualified Codes: W19.XXXA - Unspecified fall, initial encounter Additional Impressions: Closed right hip fracture Qualified Codes: S72.001A - Fracture of unspecified part of neck of right femur, initial encounter for closed fracture Pulmonary nodule Disposition: ADMITTED INPATIENT Condition: Stable Admissions Decision to Admit Reason: Admit from ER (General) Decision to Admit/Date: May 19, 2022 Time/Decision to Admit Time: 13:45 Departure-Patient Inst. Referrals: ANI VARMA DO (PCP/Family) Primary Care Physician JORGE HACKETT May 19, 2022 12:02
[2022-05-19] MEDS ORDERED: fentaNYL INJ 100 MCG/2 ML AMP ONE (12:27)
[2022-05-19] MEDS ORDERED: fentaNYL INJ 100 MCG/2 ML AMP IVP ONE (12:30)
[2022-05-19 12:45] LABS: BILIRUBIN,URINE NEGATIVE (NEGATIVE); CLARITY,URINE CLEAR; COLOR,URINE YELLOW; GLUCOSE, URINE (UA) NEGATIVE (NEGATIVE); KETONES,URINE 1+ (NEGATIVE); LEUKOCYTE ESTERASE ,URINE 2+ (NEGATIVE); NITRITE,URINE NEGATIVE (NEGATIVE); PH,URINE 6.5 (5-9); PROTEIN,URINE NEGATIVE (NEGATIVE)
[2022-05-19 12:53] LABS: BASOPHILS % (AUTO) 1 % (0-10); EOSINOPHILS % (AUTO) 0 % (0-10); HEMATOCRIT 27 % (35-52); HEMOGLOBIN 8.8 g/dL (11.5-16.0); LYMPHOCYTES # (AUTO) 0.6 10^3/uL (1.0-4.0); LYMPHOCYTES % (AUTO) 8 % (12-44); MEAN CORPUSCULAR HEMOGLOBIN 33 pg (25-34); MEAN CORPUSCULAR HGB CONC 33 g/dL (32-36); MEAN CORPUSCULAR VOLUME 100 fL (80-99); MEAN PLATELET VOLUME 8.2 fL (9.0-12.2); MONOCYTES # (AUTO) 0.8 10^3/uL (0.0-1.0); MONOCYTES % (AUTO) 10 % (0-12); NEUTROPHILS # (AUTO) 6.4 10^3/uL (1.8-7.8); NEUTROPHILS % (AUTO) 81 % (42-75); PLATELET COUNT 251 10^3/uL (130-400); WHITE BLOOD COUNT 7.9 10^3/uL (4.3-11.0)
[2022-05-19 12:55] LABS: BACTERIA,URINE FEW /HPF; RBC,URINE RARE /HPF
--- NOTE | 2022-05-19 13:16 | Diagnostic Imaging Report ---
PROCEDURE: CT head and CT cervical spine without contrast. TECHNIQUE: Multiple contiguous axial images were obtained through the brain and cervical spine without the use of intravenous contrast. Sagittal and coronal reformations through the cervical spine were then performed. Auto Exposure Controls were utilized during the CT exam to meet ALARA standards for radiation dose reduction. INDICATION: Fall at home. COMPARISON: No priors. FINDINGS: CT HEAD: Cerebral cortical atrophy is noted, more advanced than would be anticipated for age. There is chronic periventricular white matter hypodensity, also likely small vessel disease and greater than typically encountered in this age; correlate for risk factors of vasculopathy. There are some intracranial atherosclerotic vascular calcifications as a chronic finding. No findings of cortical edema. No sulcal effacement. There is no hemorrhage, and there are no abnormal extra-axial fluid collections. There is no evidence for an elevation of the intracranial pressures. Orbits, sinuses, and calvarium all appeared nonacute. No pneumocephalus. No fracture demonstrated. CT CERVICAL SPINE: There is retrolisthesis of C2 on C3 and anterolisthesis of C3 on C4. Posterior cortices at those levels were off 3 mm and 5 mm respectively. There is trace 1 mm anterolisthesis of C4 on C5 and trace retrolisthesis of C5 on C6. The malalignments are accompanied by bulky degenerative facet arthrosis and severe spondylosis as well as uncovertebral joint spurring. No cervical fracture or facet joint dislocation, however. There is no evidence for paraspinal hemorrhage. Hyoid structures of the larynx and the thyroid cartilage showed no traumatic deformity. Central skull base appeared intact, and the craniocervical relationship is intact. There is a moderate severity of canal stenosis at C2-C3 where there is mild left foraminal narrowing. At C3-C4, there is mild canal stenosis with moderate left and mild right foraminal narrowing. At C5-C6, there is moderate canal with [id number]-smcskl bony right foraminal stenosis. At C6-C7, there is moderate canal and moderate biforaminal narrowing. IMPRESSION: CT HEAD: Somewhat premature senescent pattern with atrophy and nonspecific white matter disease, but no hemorrhage, fracture, or acute appearing pathology. CT CERVICAL SPINE: Extensive degenerative changes with multilevel presumptive degenerative grade 1 listheses without fracture or dislocation. Canal and bony foraminal stenoses on a chronic basis noted. Dictated by: Dictated on workstation # [id number]
[2022-05-19 13:17] LABS: ALBUMIN 3.4 GM/DL (3.2-4.5); POTASSIUM 4.3 MMOL/L (3.6-5.0)
[2022-05-19 13:18] LABS: CALCIUM 8.5 MG/DL (8.5-10.1)
--- NOTE | 2022-05-19 13:18 | Diagnostic Imaging Report ---
INDICATION: Hip pain. COMPARISON: None available. TECHNIQUE: Two radiographs of the right hip dated 05/19/2022. FINDINGS: Acute mildly comminuted right intertrochanteric femoral fracture is recommended. Fracture is mildly impacted with resultant varus angulation. [place] anterior angulation is also noted. The lesser trochanter fragments are medially displaced. No additional fracture or dislocation. Left hip arthroplasty is minimally visualized. Multiple surgical clips are seen overlying the pelvis, particularly on the right. IMPRESSION: Acute mildly comminuted right intertrochanteric femoral fracture with resultant varus configuration and mild apex anterior angulation. Dictated by: Dictated on workstation # [id number]
--- NOTE | 2022-05-19 13:19 | Diagnostic Imaging Report ---
INDICATION: Fall, hip pain. COMPARISON: November 29, 2019. TECHNIQUE: Two radiographs of the chest dated May 19, 2022. FINDINGS: The cardiac silhouette is within normal limits in size. No significant pulmonary vascular congestion. 1.4 cm nodular density is noted overlying the right lung base. Otherwise, the lungs appear clear. The lungs are hyperinflated. No pleural effusion. No pneumothorax. Scattered osseous degenerative changes, including significant degenerative changes in the right shoulder. Surgical clips within the right upper abdomen. No acute osseous abnormality. IMPRESSION: 1.4 cm nodular density overlying the right lung base. This appears to be a change from the prior examination. This could simply relate to superimposition of structures, including ribs and underlying pulmonary parenchyma, though pulmonary nodule needs to be excluded. Recommend dedicated frontal and lateral radiographs of the chest for further evaluation. If this persists, then a CT of the chest would be recommended. Background pulmonary hyperinflation. Dictated by: Dictated on workstation # [id number]
[2022-05-19 13:21] LABS: BILIRUBIN,TOTAL 0.4 MG/DL (0.1-1.0)
[2022-05-19 13:23] LABS: CREATININE SERUM 0.67 MG/DL (0.60-1.30)
[2022-05-19 13:26] LABS: LYMPHOCYTES % (MANUAL) 9 %; MONOCYTES % (MANUAL) 5 %; NEUTROPHILS % (MANUAL) 86 %
[2022-05-19 13:27] LABS: BURR CELLS SLIGHT; HYPOCHROMASIA SLIGHT
[2022-05-19] MEDS ORDERED: KETAMINE 50 MG/5 ML SYRINGE IV ONE (14:00)
[2022-05-19] MEDS ORDERED: LACTATED RINGERS 1,000 ML IV ONE (14:00)
[2022-05-19] MEDS ORDERED: ACETAMINOPHEN 325 MG TABLET PO PRN (14:45)
[2022-05-19] MEDS ORDERED: MELATONIN 3 MG TABLET PO PRN (14:45)
[2022-05-19] MEDS ORDERED: CALCIUM CARBONATE 500 MG (TUMS) TAB.CHEW PO PRN (14:45)
[2022-05-19] MEDS ORDERED: morphine INJ 10 MG/ML 1ML (SYR OR VIAL) IVP PRN ×2 (14:45→15:15)
[2022-05-19 14:54] VITALS: BP 138/75
[2022-05-19] MEDS: morphine INJ 4 MG/ML 1 ML (VIAL/SYRINGE) IV PRN ×2 (15:16→17:20)
[2022-05-19] MEDS: NS IV 1000 ML 1,000 ML IV SCH ×2 (15:17→21:50)
--- NOTE | 2022-05-19 15:29 | History & Physical-Hospitalist ---
History of Present Illness HPI/Chief Complaint Patient is a 66-year-old female with a past medical history of rheumatoid arthritis who presented to the emergency department due to hip pain. She reports she was sitting on a stool last night and fell off while she was changing her socks and was there from 11 PM until 11 AM this morning. She was unable to get up all night. She is on methotrexate for rheumatoid arthritis and took her dose yesterday. She has had a left hip replaced previously. She reports persistent pain despite multiple doses of fentanyl and ketamine in the emergency department. She also complains of being very anxious regarding the need for surgery. Source: patient Date Seen 05/19/22 Time Seen by a Provider: 15:05 Attending Physician Ozzy Kam DO PCP Admitting Physician: Noemi Pradhan MD Attending Physician: Noemi Pradhan MD Referring Physician Date of Admission May 19, 2022 at 13:57 Home Medications & Allergies Home Medications Reviewed patient Home Medication Reconciliation performed by pharmacy medication reconciliations registered pharmacy technician and/or nursing. Patients Allergies have been reviewed. Allergies Allergies Coded Allergies prochlorperazine (Verified Allergy, Unknown, 11/29/19) Past Kywbjot-Whibln-Jlmhgy Hx Patient Social History Tobacco Use?: No Smoking Status: Never a Smoker Use of E-Cig and/or Vaping dev: No Substance use?: No Alcohol Use?: No Pt feels they are or have been: No Immunizations Up To Date Date of Influenza Vaccine: Jul 12, 2019 First/Initial COVID19 Vaccinat: Moderna Second COVID19 Vaccination Jin: Moderna Tetanus Booster (TDap): Unknown Date of Pneumonia Vaccine: Aug 16, 2019 Seasonal Allergies Seasonal Allergies: No Current Status status: No status: No Advance Directives: Yes Advance Directive Location: Unable to obtain copy Communicates: Verbally Primary Language: Paraguayan Preferred Spoken Language: Paraguayan Is interpretation needed?: No Sensory deficits: Vision impairment Past Medical History Surgeries: Gallbladder, Hysterectomy, Orthopedic (left hip) Chronic Constipation, Gall Bladder Disease Rheumatoid Arthritis, Fractures Cervical Did You Recieve Any Treatments: Yes What Type of Treatment Did You: Surgical Intervention Eating Disorder, Anxiety, Bipolar, Depression Blood Disorders: No Family Medical History Reviewed Nursing Family Hx Heart Disease Review of Systems Constitutional: No chills, No fever EENTM: no symptoms reported Respiratory: no symptoms reported Cardiovascular: no symptoms reported Gastrointestinal: no symptoms reported Genitourinary: no symptoms reported Musculoskeletal: see HPI Skin: no symptoms reported Psychiatric/Neurological: Anxiety Physical Exam Physical Exam Vital Signs Vital Signs - First Documented 05/19/22 05/19/22 11:46 14:54 Temp 37.0 Pulse 105 Resp 16 B/P (MAP) 156/82 (106) Pulse Ox 96 O2 Delivery Room Air Capillary Refill : Height, Weight, BMI Height: '" Weight: lbs. oz. kg; 18.41 BMI Method: General Appearance: Anxious, Mild Distress (appears uncomfortable), Thin HEENT: PERRL/EOMI, Moist Mucous Membranes Neck: Full Range of Motion, Supple Respiratory: Lungs Clear, No Respiratory Distress Cardiovascular: Regular Rate, Rhythm, No JVD, No Murmur Gastrointestinal: Normal Bowel Sounds, Non Tender, Soft Extremity: Normal Capillary Refill, No Calf Tenderness, No Pedal Edema Neurologic/Psychiatric: Alert, Oriented x3, Normal Mood/Affect Skin: Normal Color, Warm/Dry; No Mottled Results Results/Procedures Labs Laboratory Tests 05/19/22 12:46 05/20/22 05:45 Patient resulted labs reviewed. Imaging: Reviewed Imaging Report Imaging [facility], [place] NAME: DEEP CARLOS [facility] REC#: [id number] PT STATUS: ADM IN : 1955 PHYSICIAN: JORGE HACKETT MD ADMIT DATE: 05/19/22 Signed Date of Exam:05/19/22 HIP, RIGHT, 2 VIEWS INDICATION: Hip pain. COMPARISON: None available. TECHNIQUE: Two radiographs of the right hip dated 05/19/2022. FINDINGS: Acute mildly comminuted right intertrochanteric femoral fracture is recommended. Fracture is mildly impacted with resultant varus angulation. [place] anterior angulation is also noted. The lesser trochanter fragments are medially displaced. No additional fracture or dislocation. Left hip arthroplasty is minimally visualized. Multiple surgical clips are seen overlying the pelvis, particularly on the right. IMPRESSION: Acute mildly comminuted right intertrochanteric femoral fracture with resultant varus configuration and mild apex anterior angulation. Dictated by: Dictated on workstation # [id number] Dict: 05/19/22 1313 Trans: 05/19/22 1435 [id number] Interpreted by: NERISSA LEON MD Electronically signed by: NERISSA LEON MD 05/19/22 1435 Assessment/Plan Admission Diagnosis Right Hip fracture Admission Status: Inpatient Order (span 2 midnights) Reason for Inpatient Admission: see below Assessment and Plan Right Hip fracture Osteoporosis Rhabdomyolysis Ortho consulted, appreciate recs Hydrocodone for pain and morphine for breakthrough pain IVF fluids Monitor UOP Plan for OR tomorrow RA Took her methotrexate dose yesterday Continue prednisone Anemia- chronic Hgb 8.8 during admission last week History of severe GI bleed in 2019 (hgb 3.4) Pt declines any blood products DVT ppx: SCD only until postop Diagnosis/Problems Diagnosis/Problems (1) Closed right hip fracture Status: Acute Qualifiers: Encounter type: initial encounter Qualified Codes: S72.001A - Fracture of unspecified part of neck of right femur, initial encounter for closed fracture (2) UTI (urinary tract infection) Status: Acute (3) On methotrexate therapy Status: Chronic (4) Bipolar disorder Status: Chronic (5) Rheumatoid arthritis Status: Chronic (6) DVT prophylaxis NOEMI PRADHAN MD May 19, 2022 15:29
[2022-05-19 15:37] VITALS: BP 122/77
[2022-05-19] MEDS ORDERED: NITR100C10 PO (15:56)
[2022-05-19] MEDS: HYDROcodone/APAP 5 MG/325 MG (LORTAB) TAB PO PRN ×2 (16:53→21:50)
--- NOTE | 2022-05-19 17:37 | CONSULTATION REPORT ---
DATE OF SERVICE: 05/19/2022 INPATIENT CONSULTATION REASON FOR CONSULTATION: Right intertrochanteric femur fracture. HISTORY OF PRESENT ILLNESS: The patient is an almost 67-year-old female who fell last evening. She fell off of a stool while sitting and has had hip pain since that point. She was presented to the Emergency Department where she was found to have a right intertrochanteric femur fracture. She denies antecedent pain. She denies loss of consciousness. I was consulted for the fracture. REVIEW OF SYSTEMS: No chest pain, no shortness of breath, no dysuria. MEDICATIONS: Fosamax, citalopram, folic acid, lamotrigine, methotrexate, Macrobid, and prednisone. PAST MEDICAL HISTORY: Left hip replacement, cholecystectomy, hysterectomy, rheumatoid arthritis, depression. ORTHOPEDIC PHYSICAL EXAMINATION: The right lower extremity is slightly shortened and externally rotated. She has intact dorsiflexion and plantarflexion of the toes symmetrically at symmetric pulses. Sensation is intact to light touch distally. Radiographs reveal displaced right intertrochanteric femur fracture. PLAN: Right hip intramedullary nail. The risks, benefits, options, ramifications and recovery were discussed at length with the patient. She understands and wishes to proceed. Job ID: [id number] DocumentID: [id number] Dictated Date: 05/19/2022 16:08:25 Hydraulic Punch Press Operator Date: 05/19/2022 17:37:02 Dictated By: ROSA SHEETS MD
[2022-05-19 19:26] VITALS: BP 133/81
[2022-05-19 23:30] VITALS: BP 123/75
[2022-05-20] VITALS (12 sets, daily range): BP systolic 100–151; BP diastolic 58–77
[2022-05-20] MEDS: morphine INJ 4 MG/ML 1 ML (VIAL/SYRINGE) IV PRN ×2 (00:41→03:48)
[2022-05-20] MEDS: predniSONE 5 MG TAB PO SCH (05:03)
[2022-05-20] MEDS: PRENATAL VITAMIN 1 EA TAB PO SCH (05:03)
[2022-05-20] MEDS: NS IV 1000 ML 1,000 ML IV SCH ×3 (05:41→17:11)
[2022-05-20 05:57] LABS: HEMATOCRIT 27 % (35-52); HEMOGLOBIN 8.7 g/dL (11.5-16.0); MEAN CORPUSCULAR HEMOGLOBIN 33 pg (25-34); MEAN CORPUSCULAR HGB CONC 32 g/dL (32-36); MEAN CORPUSCULAR VOLUME 103 fL (80-99); MEAN PLATELET VOLUME 8.2 fL (9.0-12.2); PLATELET COUNT 253 10^3/uL (130-400); WHITE BLOOD COUNT 6.3 10^3/uL (4.3-11.0)
[2022-05-20 06:17] LABS: POTASSIUM 3.9 MMOL/L (3.6-5.0)
[2022-05-20 06:18] LABS: CALCIUM 8.5 MG/DL (8.5-10.1)
[2022-05-20 06:22] LABS: CREATININE SERUM 0.68 MG/DL (0.60-1.30)
[2022-05-20] MEDS: ENOXAPARIN 40 MG/0.4 ML (LOVENOX) SYR SC SCH (08:45)
[2022-05-20] MEDS: morphine INJ 4 MG/ML 1 ML (VIAL/SYRINGE) IVP PRN ×4 (08:57→23:13)
[2022-05-20] MEDS ORDERED: LAMOTRIGINE 300 MG PO SCH (09:00)
[2022-05-20] MEDS: FOLIC ACID 1 MG TAB PO SCH (09:00)
[2022-05-20] MEDS ORDERED: PRENATAL VIT W CA FE FA PO SCH (09:00)
[2022-05-20] MEDS ORDERED: [UNRECOGNIZED DRUG - OTHER] PO SCH (09:00)
[2022-05-20] MEDS ORDERED: NON-FORMULARY MEDICATION 1 EA EA (Citalopram Hydrobromide (Citalopram HBr) 40 MG) PO SCH (09:00)
[2022-05-20] MEDS: LACTATED RINGERS 1,000 ML IV PRN ×2 (09:37→10:54)
[2022-05-20] MEDS ORDERED: BUPIVACAINE 0.25% 30 ML (SENSORCAINE) VIAL ONE (09:52)
[2022-05-20] MEDS ORDERED: ceFAZolin 2 GM IV Premixed 50 ML ONE (09:55)
[2022-05-20] MEDS ORDERED: fentaNYL INJ 100 MCG/2 ML AMP ONE ×2 (10:04→11:54)
[2022-05-20] MEDS ORDERED: LIDOCAINE PF 2% 5 ML (XYLOCAINE) VIAL ONE (10:27)
[2022-05-20] MEDS ORDERED: proPOfol 200 MG/20 ML (DIPRIVAN) VIAL IV ONE (10:27)
[2022-05-20] MEDS ORDERED: ONDANSETRON 4 MG/2 ML (SDV) Z0FRAN ONE (10:27)
[2022-05-20] MEDS ORDERED: ceFAZolin INJECTION 2,000 MG in NS (IVPB) 50 ML IV NR (11:15)
[2022-05-20] MEDS ORDERED: SEVOFLURANE (ULTANE) 15 ML INHAL SOLN ONE (11:33)
--- NOTE | 2022-05-20 11:41 | Progress Note-Pre Operative ---
Pre-Operative Progress Note Date of Available H&P: May 20, 2022 Date H&P Reviewed: May 20, 2022 Time H&P Reviewed: 10:00 Changes from last HP none Pre-Operative Diagnosis: right intertrochanteric femur fracture ROSA SHEETS MD May 20, 2022 11:41
--- NOTE | 2022-05-20 11:42 | Progress Note-Post Operative ---
Post-Operative Progess Note Surgeon (s)/Client Application Support Engineer (s) Surgeon ROSA SHEETS MD Client Application Support Engineer: Kenneth Nunez Pre-Operative Diagnosis right intertrochanteric femur fracture Post-Operative Diagnosis right intertrochanteric femur fracture Procedure & Operative Findings Date of Procedure 05/20/22 Procedure Performed/Findings right hip IM nail Anesthesia Type GETA Estimated Blood Loss Estimated blood loss (mL): 100 ml Specimens/Packing Specimens Removed none Packing: none ROSA SHEETS MD May 20, 2022 11:42
[2022-05-20] MEDS ORDERED: fentaNYL INJ 100 MCG/2 ML AMP IVP ONE (11:45)
[2022-05-20] MEDS ORDERED: ONDANSETRON 4 MG/2 ML (SDV) Z0FRAN IVP PRN (11:45)
--- NOTE | 2022-05-20 13:33 | Physical Therapy Evaluation ---
PT Evaluation-General Medical Diagnosis Admission Date May 19, 2022 at 13:57 Medical Diagnosis: right hip nailing, ORIF Onset Date: May 20, 2022 Therapy Diagnosis Therapy Diagnosis: impaired mobility Precautions Precautions/Isolations: Fall Prevention, Standard Precautions Weight Bear Status Right Lower Extremity: Right Partial Weight Bearing Referral Physician: Enrique Reason for Referral: Evaluation/Treatment Medical History Pertinent Medical History: Rheumatoid Arthritis Additional Medical History Past Medical History Surgeries: Gallbladder, Hysterectomy, Orthopedic (left hip) Chronic Constipation, Gall Bladder Disease Rheumatoid Arthritis, Fractures Cervical Did You Recieve Any Treatments: Yes What Type of Treatment Did You: Surgical Intervention Eating Disorder, Anxiety, Bipolar, Depression Blood Disorders: No Reviewed History: Yes Social History Current Living Status: Alone Entry Into Home: Stairs Without Railing PT Steps Into Home: 1 Prior Prior Level of Function SCALE: Activities may be completed with or without assistive devices. 8-Lpbkffpvyd-jxbmves completes the activity by him/herself with no assistance from a helper. 5-Set-up or Clean-up Assistance-helper sets up or cleans up; patient completes activity. [place] assists only prior to or following the activity. 4-Supervision or Touching Assistance-helper provides verbal cues and/or touching/steadying and/or contact guard assistance as patient completes activity. Assistance may be provided throughout the activity or intermittently. 3-Partial/Moderate Assistance-helper does LESS THAN HALF the effort. [place] lifts, holds or supports trunk or limbs, but provides less than half the effort. 2-Substantial/Maximal Assistance-helper does MORE THAN HALF the effort. [place] lifts or holds trunk or limbs and provides more than half the effort. 0-Uqtpphaky-zcvkqa does ALL the effort. Patient does none of the effort to complete the activity. Or, the assistance of 2 or more helpers is required for the patient to complete the activity. If activity was not attempted, code reason: 7-Patient Refused. 9-Not Applicable-not attempted and the patient did not perform the activity before the current illness, exacerbation or injury. 10-Not Attempted due to Environmental Limitations-(lack of equipment, weather restraints, etc.). 88-Not Attempted due to Medical Conditions or Safety Concerns. Bed Mobility: 6 Transfers (B,C,W/C): 6 Gait: 6 Stairs: 6 Indoor Mobility (Ambulation): Independent Stairs: Independent SPC PT Evaluation-Current Subjective Patient in bed pre tx, agrees to PT, has 3/10 pain in right hip. Pt/Family Goals to be independent at home Objective Patient Orientation: Person, Place, Situation Attachments: Freire Catheter, IV Sensory Hearing: Functional Sensation Right Lower Extremit: Intact Sensation Left Lower Extremity: Intact Transfers Roll Left to Right (QC): 2 Sit to Lying (QC): 2 Lying to Sitting/Side of Bed(Q: 2 Sit to Stand (QC): 3 Patient needed max assist for supine <-> sit, min assist for sit <-> stand. Patient was not able to sidestep toward the head of the bed, she could not lift her right leg even with therapist assist but she was able to stand for about a minute before needing to sit and she started getting nauseated. Balance Sitting Static: Normal Sitting Dynamic: Normal Standing Static: Fair Standing Dynamic: Fair Treatment RLE hip protocol x10 (AP, QS, GS, HS, SAQ, hip abd/add, SLR), mostly AAROM Assessment/Needs Patient in bed post tx with nurse call, phone, tray, all needs met. Nurse notified of patient's nausea and she has some skin breakdown on her back. Rehab Potential: Fair PT Route Sales Delivery Drivers Supervisor Goals Route Sales Delivery Drivers Supervisor Goals PT Route Sales Delivery Drivers Supervisor Goals Time Frame: May 27, 2022 Roll Left & Right (QC): 3 Sit to Lying (QC): 3 Lying-Sitting on Side/Bed(QC): 3 Sit to Stand (QC): 4 Chair/Ryo-ml-Edmgk Xfer(QC): 4 Walk 10 feet (QC): 4 Walk 50ft with 2 Turns (QC): 4 PT Plan Problem List Problem List: Activity Tolerance, Functional Strength, Safety, Balance, Gait, Transfer, Bed Mobility, ROM Treatment/Plan Treatment Plan: Continue Plan of Care Treatment Plan: Bed Mobility, Education, Functional Activity Connie, Functional Strength, Gait, Safety, Therapeutic Exercise, Transfers Treatment Duration: May 27, 2022 Frequency: 11 times per week Estimated Hrs Per Day: .25 hour per day Patient and/or Family Agrees t: Yes Safety Risks/Education Patient Education: Correct Positioning, Safety Issues Teaching Recipient: Patient Teaching Methods: Demonstration, Discussion Response to Teaching: Reinforcement Needed Discharge Recommendations Plan Patient will perform bed mobility and transfer training, balance and endurance training, functional strengthening, stair training, gait training, and education, to improve functional mobility and independence at home. Therapy Discharge Recommendati: Scheduled Assistance, Home & Family, Post Acute PT Time/GCodes Time In: 1304 Time Out: 1321 Total Billed Treatment Time: 17 Total Billed Treatment 1 visit DEQUAN Pradhan' AMIRA JORDAN PT May 20, 2022 13:33
--- NOTE | 2022-05-20 14:06 | Diagnostic Imaging Report ---
INDICATION: Right intertrochanteric fracture COMPARISON: None available. IMPRESSION: 3 spot images are submitted and show placement of proximal femoral nail with antirotation blade in the femoral neck. The intertrochanteric fracture is reduced. Air Kerma is 10.62 mGy. Please see procedure report for more details. Dictated by: Dictated on workstation # [id number]
--- NOTE | 2022-05-20 14:51 | Progress Note - Hospitalist ---
Subjective HPI/CC On Admission Date Seen by Provider: May 20, 2022 Patient is a 66-year-old female with a past medical history of rheumatoid arthritis who presented to the emergency department due to hip pain. She reports she was sitting on a stool last night and fell off while she was changing her socks and was there from 11 PM until 11 AM this morning. She was unable to get up all night. She is on methotrexate for rheumatoid arthritis and took her dose yesterday. She has had a left hip replaced previously. She reports persistent pain despite multiple doses of fentanyl and ketamine in the emergency department. She also complains of being very anxious regarding the need for surgery. Subjective/Events-last exam Saw patient just prior to surgery.No complains. Report pain controlled. Anxious for surgery. Objective Exam Vital Signs Vital Signs Date Time Temp Pulse Resp B/P (MAP) Pulse Ox O2 Delivery O2 Flow Rate FiO2 05/20/22 12:55 35.8 116 18 118/63 (81) 96 Room Air 05/20/22 12:10 10.00 Capillary Refill : Less Than 3 Seconds General Appearance: No Apparent Distress, Anxious, Chronically ill, Thin Respiratory: Lungs Clear, No Respiratory Distress Cardiovascular: Regular Rate, Rhythm, No Murmur Neurologic/Psychiatric: Alert, Oriented x3 Results/Procedures Lab Laboratory Tests 05/20/22 05:45 Patient resulted labs reviewed. Imaging: Reviewed Imaging Report Assessment/Plan Assessment and Plan Assess & Plan/Chief Complaint Right Hip fracture Osteoporosis Rhabdomyolysis Ortho consulted, appreciate recs Hydrocodone for pain and morphine for breakthrough pain IVF fluids Monitor UOP Plan for operative repair today RA Took her methotrexate dose 05/18 Continue prednisone Anemia- chronic Hgb stable History of severe GI bleed in 2019 (hgb 3.4) Pt declines any blood products DVT ppx: SCD only until postop Diagnosis/Problems Diagnosis/Problems (1) Closed right hip fracture Status: Acute Qualifiers: Encounter type: initial encounter Qualified Codes: S72.001A - Fracture of unspecified part of neck of right femur, initial encounter for closed fracture (2) UTI (urinary tract infection) Status: Acute (3) On methotrexate therapy Status: Chronic (4) Bipolar disorder Status: Chronic (5) Rheumatoid arthritis Status: Chronic (6) DVT prophylaxis NOEMI TAN MD May 20, 2022 14:51
[2022-05-20] MEDS: ceFAZolin INJECTION 2,000 MG in NS (IVPB) 50 ML IV SCH (17:11)
--- NOTE | 2022-05-20 18:18 | OPERATIVE REPORT ---
DATE OF SERVICE: 05/20/2022 PREOPERATIVE DIAGNOSIS: Closed right intertrochanteric femur fracture. POSTOPERATIVE DIAGNOSIS: Closed right intertrochanteric femur fracture. PROCEDURE: Right hip intramedullary nail. SURGEON: Pedro Sheets MD BRAND REPRESENTATIVE: Kenneth Nunez, who assisted throughout the procedure and closed the incisions. ANESTHESIA: General endotracheal by Anastasia Ramos CRNA. ESTIMATED BLOOD LOSS: 100 mL. DRAINS: None. COMPLICATIONS: None. POSTOPERATIVE PLAN: 50% weightbearing right lower extremity. MATERIALS: Synthes short hip nail, 11 mm in diameter proximally and distally locked. STATEMENT OF MEDICAL NECESSITY: The patient is a 66-year-old female with multiple medical problems with chronic steroid use secondary to rheumatoid arthritis, who fell at home. She presented to the Emergency Department yesterday afternoon and was found to have an intertrochanteric femur fracture. In order to maintain mobility, the patient elected to proceed with surgical intervention. DESCRIPTION OF PROCEDURE: After risks and benefits of the procedure were discussed and questions were answered, an informed consent was signed and placed on chart, the operative site was confirmed in the preoperative holding area initialed by the surgeon. The patient was then transferred to the operating room and after adequate levels of general endotracheal anesthetic were obtained, a timeout was called, confirming the operative site. The patient was carefully placed on the fracture table and closed reduction was performed. Good alignment was obtained in both the AP and lateral planes. The right hip and lower extremity were then prepped and draped in the usual sterile fashion. The percutaneous incision was made proximally at the greater trochanter and under fluoroscopic guidance, the guidewire was passed into the femoral canal. This was found to be in good position in both AP and lateral planes. This was then overreamed and an 11 mm nail was placed through a second percutaneous incision, the guidepin was passed into the femoral head and felt to be in excellent position in both the AP and lateral planes. This was then drilled and a 90 mm blade was placed and again felt to be in excellent position in both the AP and lateral planes. The proximal locking mechanism was tightened and through the same percutaneous incision distally, the locking screw was placed with good purchase obtained. Fluoroscopy in the AP, lateral and oblique planes revealed well-reduced fracture with well-placed hardware. The femur was then rotated and moved as a unit. The wounds were copiously irrigated. The iliotibial band was closed in the proximal incision with #1 Vicryl, 2-0 Vicryl was used to reapproximate subcutaneous tissue at both incisions and phyllis were used to close the skin. The incisions were infiltrated with plain Marcaine. A soft dressing was applied. The patient was transferred to recovery room awake and in stable condition. Job ID: [id number] DocumentID: [id number] Dictated Date: 05/20/2022 11:41:46 College Recruiter Date: 05/20/2022 18:17:20 Dictated By: PEDRO SHEETS MD
[2022-05-20] MEDS: polyethylene glycoL POWDER 17 GM (MIRALAX) PACK PO PRN (20:38)
[2022-05-20] MEDS: HYDROcodone/APAP 7.5 MG/325 MG (LORTAB, LORCET PLUS) TABLET PO PRN (23:13)
[2022-05-21 00:06] VITALS: BP 102/66
[2022-05-21] MEDS: ceFAZolin INJECTION 2,000 MG in NS (IVPB) 50 ML IV SCH (01:08)
[2022-05-21] MEDS: HYDROcodone/APAP 7.5 MG/325 MG (LORTAB, LORCET PLUS) TABLET PO PRN ×4 (03:10→23:50)
[2022-05-21] MEDS: morphine INJ 4 MG/ML 1 ML (VIAL/SYRINGE) IVP PRN ×2 (03:12→05:44)
[2022-05-21] MEDS: ONDANSETRON 4 MG/2 ML (SDV) Z0FRAN IVP PRN ×2 (03:54→08:04)
[2022-05-21 04:09] VITALS: BP 116/69
[2022-05-21] MEDS: predniSONE 5 MG TAB PO SCH (05:44)
[2022-05-21] MEDS: PRENATAL VITAMIN 1 EA TAB PO SCH (05:44)
[2022-05-21] MEDS ORDERED: morphine INJ 4 MG/ML 1 ML (VIAL/SYRINGE) IVP PRN (06:30)
[2022-05-21] MEDS: NS IV 1000 ML 1,000 ML IV SCH ×3 (06:45→18:16)
[2022-05-21 07:55] VITALS: BP 110/56
--- NOTE | 2022-05-21 07:59 | Progress Note ---
Standard Progress Note Progress Notes/Assess & Plan Date Seen by a Provider: May 21, 2022 Time Seen by a Provider: 07:57 Progress/Assessment & Plan no complaints Vital Signs Date Time Temp Pulse Resp B/P (MAP) Pulse Ox O2 Delivery O2 Flow Rate FiO2 05/21/22 04:09 37.1 95 18 116/69 (85) 97 Room Air 05/21/22 01:00 87 05/21/22 00:06 37.6 102 18 102/66 (78) 97 Room Air 05/20/22 21:36 100 Room Air 05/20/22 20:23 37.2 129 18 100/58 (72) 98 Room Air 05/20/22 19:00 124 05/20/22 16:03 36.7 110 18 107/62 (77) 99 Room Air 05/20/22 12:55 35.8 116 18 118/63 (81) 96 Room Air 05/20/22 12:30 Room Air 05/20/22 12:26 36.1 12 136/73 (94) 100 Room Air 05/20/22 12:20 13 142/76 (98) 100 Room Air 05/20/22 12:10 16 146/74 (98) 100 OxyMask 10.00 05/20/22 12:00 OxyMask 10.00 05/20/22 12:00 14 151/77 (101) 100 OxyMask 10.00 05/20/22 11:50 17 146/76 (99) 100 OxyMask 10.00 05/20/22 11:40 16 143/72 (95) 100 OxyMask 10.00 05/20/22 11:35 OxyMask 10.00 05/20/22 11:35 36.5 20 144/75 (98) 100 OxyMask 10.00 05/20/22 09:00 100 Room Air 05/20/22 08:40 36.5 90 18 118/67 (84) 100 Room Air I & O 05/21/22 07:00 Intake Total 1720 ml Output Total 1875 ml Balance -155 ml Laboratory Tests Test 05/21/22 07:20 Range/Units Hemoglobin 7.0 L 11.5-16.0 g/dL Hematocrit 22 L 35-52 % R hip dressing intact intact DF and PF of toes and ankle distally with intact sensation throughout s/p R hip IM bill PT with PWB will need NH placement no blood products ROSA SHEETS MD May 21, 2022 07:59
[2022-05-21] MEDS: ENOXAPARIN 40 MG/0.4 ML (LOVENOX) SYR SC SCH (08:01)
[2022-05-21] MEDS: FOLIC ACID 1 MG TAB PO SCH (08:02)
--- NOTE | 2022-05-21 09:15 | Progress Note - Hospitalist ---
Subjective HPI/CC On Admission Date Seen by Provider: May 21, 2022 Patient is a 66-year-old female with a past medical history of rheumatoid arthritis who presented to the emergency department due to hip pain. She reports she was sitting on a stool last night and fell off while she was changing her socks and was there from 11 PM until 11 AM this morning. She was unable to get up all night. She is on methotrexate for rheumatoid arthritis and took her dose yesterday. She has had a left hip replaced previously. She reports persistent pain despite multiple doses of fentanyl and ketamine in the emergency department. She also complains of being very anxious regarding the need for surgery. Subjective/Events-last exam Pt reports doing well today. About to work with PT and just ordered breakfast. Interested in IRF or SNF pending on how she does. Objective Exam Vital Signs Vital Signs Date Time Temp Pulse Resp B/P (MAP) Pulse Ox O2 Delivery O2 Flow Rate FiO2 05/21/22 08:19 100 Room Air 05/21/22 07:55 36.6 97 17 110/56 (74) 05/20/22 12:10 10.00 Capillary Refill : Less Than 3 Seconds General Appearance: No Apparent Distress, Chronically ill, Thin Respiratory: Lungs Clear, No Respiratory Distress Cardiovascular: Regular Rate, Rhythm, No Murmur Neurologic/Psychiatric: Alert, Oriented x3 Results/Procedures Lab Laboratory Tests 05/21/22 07:20 Patient resulted labs reviewed. Imaging: Reviewed Imaging Report Assessment/Plan Assessment and Plan Assess & Plan/Chief Complaint Right Hip fracture Osteoporosis Rhabdomyolysis POD #1 Ortho consulted, appreciate recs Hydrocodone for pain and morphine for breakthrough pain PT/OT IRF dorothy RA Took her methotrexate dose 05/18 Continue prednisone Anemia- chronic Hgb down to 7.0 History of severe GI bleed in 2019 (hgb 3.4) Pt declines any blood products DVT ppx: SCD only until postop Diagnosis/Problems Diagnosis/Problems (1) Closed right hip fracture Status: Acute Qualifiers: Encounter type: initial encounter Qualified Codes: S72.001A - Fracture of unspecified part of neck of right femur, initial encounter for closed fracture (2) UTI (urinary tract infection) Status: Acute (3) On methotrexate therapy Status: Chronic (4) Bipolar disorder Status: Chronic (5) Rheumatoid arthritis Status: Chronic (6) DVT prophylaxis NOEMI TAN MD May 21, 2022 09:15
--- NOTE | 2022-05-21 09:49 | Physical Therapy Daily Note ---
PT Daily Note-Current Subjective Patient agrees to PT. Pain Numeric Pain Scale: 5-Moderate Pain Location: Right Location Body Site: Hip Pain Description: Acute Mental Status Patient Orientation: Normal For Age Attachments: Freire Catheter, IV Transfers SCALE: Activities may be completed with or without assistive devices. 3-Zjgcxwbunr-hvbzvuf completes the activity by him/herself with no assistance from a helper. 5-Set-up or Clean-up Assistance-helper sets up or cleans up; patient completes activity. [place] assists only prior to or following the activity. 4-Supervision or Touching Assistance-helper provides verbal cues and/or touching/steadying and/or contact guard assistance as patient completes activity. Assistance may be provided throughout the activity or intermittently. 3-Partial/Moderate Assistance-helper does LESS THAN HALF the effort. [place] lifts, holds or supports trunk or limbs, but provides less than half the effort. 2-Substantial/Maximal Assistance-helper does MORE THAN HALF the effort. [place] l ifts or holds trunk or limbs and provides more than half the effort. 9-Doekirdzo-ootsia does ALL the effort. Patient does none of the effort to complete the activity. Or, the assistance of 2 or more helpers is required for the patient to complete the activity. If activity was not attempted, code reason: 7-Patient Refused. 9-Not Applicable-not attempted and the patient did not perform the activity before the current illness, exacerbation or injury. 10-Not Attempted due to Environmental Limitations-(lack of equipment, weather restraints, etc.). 88-Not Attempted due to Medical Conditions or Safety Concerns. 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 Exercises Supine Ex: Ankle pumps, Quad Set, Heel Slides (AAROM right LE) Supine Reps: 10 Seated Therapy Exercises: Ankle pumps, Long arc quads Seated Reps: 15 (AAROM right LE) Assessment Patient requires time to complete all functional tasks. PT to increase activity as tolerated by patient. Patient presents with trunk flexed posture with FWW use. Patient up in recliner with needs met. Patient instructed to remain in recliner for 1-2 hours to prevent pneumonia and to increase strength. Patient voices understanding. PT Resource Program Teacher Goals Resource Program Teacher Goals PT Resource Program Teacher Goals Time Frame: May 27, 2022 Roll Left & Right (QC): 3 Sit to Lying (QC): 3 Lying-Sitting on Side/Bed(QC): 3 Sit to Stand (QC): 4 Chair/Uet-ad-Fnbai Xfer(QC): 4 Walk 10 feet (QC): 4 Walk 50ft with 2 Turns (QC): 4 PT Plan Treatment/Plan Treatment Plan: Continue Plan of Care Treatment Plan: Bed Mobility, Education, Functional Activity Connie, Functional Strength, Gait, Safety, Therapeutic Exercise, Transfers Treatment Duration: May 27, 2022 Frequency: 11 times per week Estimated Hrs Per Day: .25 hour per day Patient and/or Family Agrees t: Yes Time/GCodes Time In: 830 Time Out: 853 Total Billed Treatment Time: 23 Total Billed Treatment 1 visit EX 10min FA 13 min SUJIT GONZALES PT May 21, 2022 09:49
[2022-05-21] MEDS ORDERED: SCOPOLAMINE 1.5 MG (TRANSDERM-SCOP) PATCH TD ONE (10:30)
[2022-05-21 11:50] VITALS: BP 120/67
--- NOTE | 2022-05-21 12:42 | Discharge Inst-Skilled Nursing ---
Discharge Inst-Skilled NF Chief Complaint Patient is a 66-year-old female with a past medical history of rheumatoid arthritis who presented to the emergency department due to hip pain. She reports she was sitting on a stool last night and fell off while she was changing her socks and was there from 11 PM until 11 AM this morning. She was unable to get up all night. She is on methotrexate for rheumatoid arthritis and took her dose yesterday. She has had a left hip replaced previously. She reports persistent pain despite multiple doses of fentanyl and ketamine in the emergency department. She also complains of being very anxious regarding the need for surgery. Consult/Follow Up/Orders Skilled NF Admit to: [facility] Certification (SNF) I certify that SNF services are required to be given on an inpatient basis because of the above named patient's need for snf care on a continuing basis for the conditions(s) for which he/she was receiving inpatient hospital services prior to his/her transfer to the SNF. Senior Living Facility Order: Nursing Services, Art Therapy Specialist-Evaluate & Treat, Physical Therapy-Evaluate & Treat, Wound Care-Eval/Treat Oxygen Delivery Method: Room Air Discharge Diet: No Restrictions Daily Activity as Tolerated: Yes (partial weight bearing RLE) Resuscitation Status: Do Not Resuscitate New & Resume Previous Orders Noemi Pradhan May 21, 2022 12:41 NOEMI PRADHAN MD May 21, 2022 12:42
--- NOTE | 2022-05-21 14:01 | Anesthesia-General Post-Op ---
General Patient Condition Mental Status/LOC: Same as Preop Cardiovascular: Satisfactory Nausea/Vomiting: Absent Respiratory: Satisfactory Pain: Controlled Complications: Absent Post Op Complications Complications None Follow Up Care/Instructions Patient Instructions None needed. Anesthesia/Patient Condition Patient Condition Patient is doing well, no complaints, stable vital signs, no apparent adverse anesthesia problems. No complications reported per nursing. LAURIE SILVA CRNA May 21, 2022 14:01
--- NOTE | 2022-05-21 14:07 | Physical Therapy Daily Note ---
PT Daily Note-Current Subjective Patient initially declined PT. After much encouragement, agrees to up to recliner only. Declined exercises. Pain Numeric Pain Scale: 7 Location: Right Location Body Site: Hip Pain Description: Acute Mental Status Patient Orientation: Normal For Age Attachments: Freire Catheter, IV Transfers SCALE: Activities may be completed with or without assistive devices. 0-Waljbefaif-grrsjlr completes the activity by him/herself with no assistance from a helper. 5-Set-up or Clean-up Assistance-helper sets up or cleans up; patient completes activity. [place] assists only prior to or following the activity. 4-Supervision or Touching Assistance-helper provides verbal cues and/or touching/steadying and/or contact guard assistance as patient completes activity. Assistance may be provided throughout the activity or intermittently. 3-Partial/Moderate Assistance-helper does LESS THAN HALF the effort. [place] lifts, holds or supports trunk or limbs, but provides less than half the effort. 2-Substantial/Maximal Assistance-helper does MORE THAN HALF the effort. [place] lifts or holds trunk or limbs and provides more than half the effort. 0-Gzouxogct-lwxpol does ALL the effort. Patient does none of the effort to complete the activity. Or, the assistance of 2 or more helpers is required for the patient to complete the activity. If activity was not attempted, code reason: 7-Patient Refused. 9-Not Applicable-not attempted and the patient did not perform the activity before the current illness, exacerbation or injury. 10-Not Attempted due to Environmental Limitations-(lack of equipment, weather restraints, etc.). 88-Not Attempted due to Medical Conditions or Safety Concerns. Lying to Sitting/Side of Bed(Q: 2 Sit to Stand (QC): 2 Chair/Ecm-nj-Mgmht Xfer(QC): 2 Weight Bearing Right Lower Extremity: Right Partial Weight Bearing Assessment Patient requires time to complete all functional tasks. Patient is up in recliner. Unable to comply with PWB right LE with sit to stand and SPT with FWW use. PT Longterm Goals Longterm Goals PT Peoplesoft Business Analyst Goals Time Frame: May 27, 2022 Roll Left & Right (QC): 3 Sit to Lying (QC): 3 Lying-Sitting on Side/Bed(QC): 3 Sit to Stand (QC): 4 Chair/Ycz-lw-Mejnj Xfer(QC): 4 Walk 10 feet (QC): 4 Walk 50ft with 2 Turns (QC): 4 PT Plan Treatment/Plan Treatment Plan: Continue Plan of Care Treatment Plan: Bed Mobility, Education, Functional Activity Connie, Functional Strength, Gait, Safety, Therapeutic Exercise, Transfers Treatment Duration: May 27, 2022 Frequency: 11 times per week Estimated Hrs Per Day: .25 hour per day Patient and/or Family Agrees t: Yes Time/GCodes Time In: 1345 Time Out: 1355 Total Billed Treatment Time: 10 Total Billed Treatment 1 visit FA 10 min SUJIT GONZALES PT May 21, 2022 14:07
[2022-05-21] MEDS: ONDANSETRON 4 MG/2 ML (SDV) Z0FRAN IV PRN (15:10)
[2022-05-21 15:46] VITALS: BP 106/52
[2022-05-21] MEDS: polyethylene glycoL POWDER 17 GM (MIRALAX) PACK PO PRN (18:16)
[2022-05-21 19:22] VITALS: BP 91/54
[2022-05-22] VITALS (8 sets, daily range): BP systolic 96–145; BP diastolic 57–71
[2022-05-22] MEDS: NS IV 1000 ML 1,000 ML IV SCH (02:34)
[2022-05-22 05:49] LABS: HEMOGLOBIN 5.4 g/dL (11.5-16.0)
[2022-05-22] MEDS: HYDROcodone/APAP 7.5 MG/325 MG (LORTAB, LORCET PLUS) TABLET PO PRN ×2 (06:20→15:59)
[2022-05-22] MEDS: PRENATAL VITAMIN 1 EA TAB PO SCH (06:20)
[2022-05-22] MEDS: predniSONE 5 MG TAB PO SCH (06:20)
--- NOTE | 2022-05-22 07:05 | Progress Note ---
Standard Progress Note Progress Notes/Assess & Plan Date Seen by a Provider: May 22, 2022 Time Seen by a Provider: 07:04 Progress/Assessment & Plan no complaints Vital Signs Date Time Temp Pulse Resp B/P (MAP) Pulse Ox O2 Delivery O2 Flow Rate FiO2 05/21/22 04:09 37.1 95 18 116/69 (85) 97 Room Air 05/21/22 01:00 87 05/21/22 00:06 37.6 102 18 102/66 (78) 97 Room Air 05/20/22 21:36 100 Room Air 05/20/22 20:23 37.2 129 18 100/58 (72) 98 Room Air 05/20/22 19:00 124 05/20/22 16:03 36.7 110 18 107/62 (77) 99 Room Air 05/20/22 12:55 35.8 116 18 118/63 (81) 96 Room Air 05/20/22 12:30 Room Air 05/20/22 12:26 36.1 12 136/73 (94) 100 Room Air 05/20/22 12:20 13 142/76 (98) 100 Room Air 05/20/22 12:10 16 146/74 (98) 100 OxyMask 10.00 05/20/22 12:00 OxyMask 10.00 05/20/22 12:00 14 151/77 (101) 100 OxyMask 10.00 05/20/22 11:50 17 146/76 (99) 100 OxyMask 10.00 05/20/22 11:40 16 143/72 (95) 100 OxyMask 10.00 05/20/22 11:35 OxyMask 10.00 05/20/22 11:35 36.5 20 144/75 (98) 100 OxyMask 10.00 05/20/22 09:00 100 Room Air 05/20/22 08:40 36.5 90 18 118/67 (84) 100 Room Air I & O 05/21/22 07:00 Intake Total 1720 ml Output Total 1875 ml Balance -155 ml Laboratory Tests Test 05/21/22 07:20 Range/Units Hemoglobin 7.0 L 11.5-16.0 g/dL Hematocrit 22 L 35-52 % R hip dressing intact intact DF and PF of toes and ankle distally with intact sensation throughout s/p R hip IM bill PT with PWB will need NH placement no blood products Final Diagnosis reports hip feels better Vital Signs Date Time Temp Pulse Resp B/P (MAP) Pulse Ox O2 Delivery O2 Flow Rate FiO2 05/22/22 04:29 37.0 80 16 96/57 (70) 96 Room Air 05/22/22 01:00 78 05/22/22 00:06 37.2 87 16 106/63 (77) 97 Room Air 05/21/22 20:31 98 Room Air 05/21/22 19:22 35.7 101 18 91/54 (66) 98 Room Air 05/21/22 19:00 83 05/21/22 15:46 36.2 95 18 106/52 (70) 97 Room Air 05/21/22 13:00 85 05/21/22 11:50 35.6 108 18 120/67 (84) 100 Room Air 05/21/22 08:19 100 Room Air 05/21/22 07:55 36.6 97 17 110/56 (74) 99 Room Air I & O 05/22/22 07:00 Intake Total 1990 ml Output Total 650 ml Balance 1340 ml Laboratory Tests Test 05/21/22 07:20 Range/Units Hemoglobin 7.0 L 11.5-16.0 g/dL Hematocrit 22 L 35-52 % R hip incision clean and dry. No calf tenderness s/p R hip IM bill mobility poor refuses blood products PT as tolerated await NH placement ROSA SHEETS MD May 22, 2022 07:05
[2022-05-22] MEDS: FOLIC ACID 1 MG TAB PO SCH (08:32)
[2022-05-22] MEDS: ENOXAPARIN INJECTION 30 MG/0.3 ML SYR SC SCH (08:33)
[2022-05-22 08:40] LABS: HEMOGLOBIN 5.7 g/dL (11.5-16.0)
[2022-05-22 08:41] LABS: HEMATOCRIT 18 % (35-52)
[2022-05-22] MEDS ORDERED: IRON SUCROSE 200 MG/10 ML (VENOFER) VIAL IV SCH (09:00)
[2022-05-22 09:12] LABS: ABSOLUTE RETIC # 16 10e9/uL (24-90); BASOPHILS % (AUTO) 0 % (0-10); EOSINOPHILS # (AUTO) 0.1 10^3/uL (0.0-0.3); EOSINOPHILS % (AUTO) 1 % (0-10); LYMPHOCYTES # (AUTO) 1.2 10^3/uL (1.0-4.0); LYMPHOCYTES % (AUTO) 16 % (12-44); MEAN CORPUSCULAR HEMOGLOBIN 33 pg (25-34); MEAN CORPUSCULAR HGB CONC 32 g/dL (32-36); MEAN CORPUSCULAR VOLUME 104 fL (80-99); MEAN PLATELET VOLUME 8.6 fL (9.0-12.2); MONOCYTES # (AUTO) 0.4 10^3/uL (0.0-1.0); MONOCYTES % (AUTO) 6 % (0-12); NEUTROPHILS # (AUTO) 5.3 10^3/uL (1.8-7.8); NEUTROPHILS % (AUTO) 76 % (42-75); PLATELET COUNT 283 10^3/uL (130-400); RETICULOCYTE % 0.94 % (0.50-2.40)
--- NOTE | 2022-05-22 09:38 | Physical Therapy Daily Note ---
PT Daily Note-Current Subjective Patient agrees to PT. Pain Numeric Pain Scale: 5-Moderate Pain Location: Right Location Body Site: Hip Pain Description: Acute Mental Status Patient Orientation: Normal For Age Attachments: Freire Catheter Transfers SCALE: Activities may be completed with or without assistive devices. 0-Vsdvzflrky-tandmfe completes the activity by him/herself with no assistance from a helper. 5-Set-up or Clean-up Assistance-helper sets up or cleans up; patient completes activity. [place] assists only prior to or following the activity. 4-Supervision or Touching Assistance-helper provides verbal cues and/or touching/steadying and/or contact guard assistance as patient completes activity. Assistance may be provided throughout the activity or intermittently. 3-Partial/Moderate Assistance-helper does LESS THAN HALF the effort. [place] lifts, holds or supports trunk or limbs, but provides less than half the effort. 2-Substantial/Maximal Assistance-helper does MORE THAN HALF the effort. [place] lifts or holds trunk or limbs and provides more than half the effort. 7-Ovelnaala-augvnp does ALL the effort. Patient does none of the effort to complete the activity. Or, the assistance of 2 or more helpers is required for the patient to complete the activity. If activity was not attempted, code reason: 7-Patient Refused. 9-Not Applicable-not attempted and the patient did not perform the activity before the current illness, exacerbation or injury. 10-Not Attempted due to Environmental Limitations-(lack of equipment, weather restraints, etc.). 88-Not Attempted due to Medical Conditions or Safety Concerns. Lying to Sitting/Side of Bed(Q: 2 Sit to Stand (QC): 2 Chair/Cjv-wv-Lqonk Xfer(QC): 2 difficulty with maintaining PWB right LE due to left LE pain and weakness Weight Bearing Right Lower Extremity: Right Partial Weight Bearing Exercises Seated Therapy Exercises: Ankle pumps, Long arc quads Seated Reps: 15 (x 2 sets) Assessment Patient tolerated treatment well and is up in recliner with needs met. PT to increase activity as tolerated by patient. PT Halfway Goals Halfway Goals PT Machinery Cleaner Goals Time Frame: May 27, 2022 Roll Left & Right (QC): 3 Sit to Lying (QC): 3 Lying-Sitting on Side/Bed(QC): 3 Sit to Stand (QC): 4 Chair/Ruc-gr-Aewcs Xfer(QC): 4 Walk 10 feet (QC): 4 Walk 50ft with 2 Turns (QC): 4 PT Plan Treatment/Plan Treatment Plan: Continue Plan of Care Treatment Plan: Bed Mobility, Education, Functional Activity Connie, Functional Strength, Gait, Safety, Therapeutic Exercise, Transfers Treatment Duration: May 27, 2022 Frequency: 11 times per week Estimated Hrs Per Day: .25 hour per day Patient and/or Family Agrees t: Yes Time/GCodes Time In: 848 Time Out: 901 Total Billed Treatment Time: 13 Total Billed Treatment 1 visit FA 13 min SUJIT GONZALES PT May 22, 2022 09:38
[2022-05-22 10:01] LABS: ACANTHOCYTES SLIGHT; BASOPHILS % (MANUAL) 1 %; BURR CELLS SLIGHT; ELLIPT/OVALOCYTES SLIGHT; EOSINOPHILS % (MANUAL) 3 %; LYMPHOCYTES % (MANUAL) 20 %; MONOCYTES % (MANUAL) 5 %; NEUTROPHILS % (MANUAL) 71 %; POLYCHROMASIA SLIGHT
[2022-05-22] MEDS ORDERED: SCOPOLAMINE PATCH REMOVAL TP ONE (10:30)
--- NOTE | 2022-05-22 10:46 | Progress Note - Hospitalist ---
Subjective HPI/CC On Admission Date Seen by Provider: May 22, 2022 Patient is a 66-year-old female with a past medical history of rheumatoid arthritis who presented to the emergency department due to hip pain. She reports she was sitting on a stool last night and fell off while she was changing her socks and was there from 11 PM until 11 AM this morning. She was unable to get up all night. She is on methotrexate for rheumatoid arthritis and took her dose yesterday. She has had a left hip replaced previously. She reports persistent pain despite multiple doses of fentanyl and ketamine in the emergency department. She also complains of being very anxious regarding the need for surgery. Subjective/Events-last exam Pt on the phone when I entered room and telling friend, Yola that we wouldn't tell her lab results. I offered to speak with Yola and let her know that the mini lab operator was in the room about to draw the labs so we couldn't give results yet because they hadn't been done as pt was on the phone still. Yola expressed understanding and requested patient receive B12, folic acid, and epo for her anemia. Objective Exam Vital Signs Vital Signs Date Time Temp Pulse Resp B/P (MAP) Pulse Ox O2 Delivery O2 Flow Rate FiO2 05/22/22 09:36 37.6 98 18 99/60 (73) 90 Room Air 05/20/22 12:10 10.00 Capillary Refill : Less Than 3 Seconds General Appearance: No Apparent Distress, Chronically ill, Thin Respiratory: Lungs Clear, No Respiratory Distress Cardiovascular: Regular Rate, Rhythm, No Murmur Neurologic/Psychiatric: Alert, Oriented x3 (to major details but a little confused today) Results/Procedures Lab Laboratory Tests 05/22/22 05:15 05/22/22 08:26 Patient resulted labs reviewed. Imaging: Reviewed Imaging Report Assessment/Plan Assessment and Plan Assess & Plan/Chief Complaint Right Hip fracture Osteoporosis Rhabdomyolysis POD #2 Ortho consulted, appreciate recs Hydrocodone for pain and morphine for breakthrough pain PT/OT Planned to DC to SNF today but due to anemia will keep and trend Hgb RA Took her methotrexate dose 05/18 Continue prednisone Anemia- acute postoperative loss on Chronic Hgb down to 7.0 History of severe GI bleed in 2019 (hgb 3.4) Pt declines any blood products Hgb 5.4 today, recheck 5.7 Will check iron, b12, folate levels and get a peripheral smear due to chronic anemia DVT ppx: SCD only due to anemia Diagnosis/Problems Diagnosis/Problems (1) Closed right hip fracture Status: Acute Qualifiers: Encounter type: initial encounter Qualified Codes: S72.001A - Fracture of unspecified part of neck of right femur, initial encounter for closed fracture (2) UTI (urinary tract infection) Status: Acute (3) On methotrexate therapy Status: Chronic (4) Bipolar disorder Status: Chronic (5) Rheumatoid arthritis Status: Chronic (6) DVT prophylaxis NOEMI TAN MD May 22, 2022 10:46
[2022-05-22] MEDS ORDERED: RT-ALBUTEROL SULF 2.5 MG/3 ML PRE-MIX VIAL IH PRN (11:15)
[2022-05-22] MEDS ORDERED: NS IV 500 ML 500 ML IV SCH (11:15)
[2022-05-22] MEDS ORDERED: HYDROCORTISONE 100 MG/2 ML (Solu-CORTEF) VIAL IV PRN (11:15)
[2022-05-22] MEDS ORDERED: diphenhydrAMINE 50 MG/ML INJ (BENADRYL) IV PRN (11:15)
[2022-05-22] MEDS ORDERED: EPINEPHrine INJECTION 1 MG/ML AMP IM PRN (11:15)
[2022-05-22] MEDS ORDERED: IRON DEXTRAN INJECTION 25 MG in NS (IVPB) 5.75 ML IV NR (11:30)
[2022-05-22] MEDS ORDERED: IRON DEXTRAN INJECTION 1,000 MG in NS (IVPB) 250 ML IV ONE (11:45)
--- NOTE | 2022-05-22 14:39 | Physical Therapy Daily Note ---
PT Daily Note-Current Subjective Patient repeats,"I have valgus in my knee. That is why I can't stand." This PT educated patient on her ability last week during her hospital stay thay she was able to ambulate with FWW without difficulty. Patient adamantly denied this. Mental Status Patient Orientation: Person Attachments: Freire Catheter, IV Transfers SCALE: Activities may be completed with or without assistive devices. 9-Wynythiein-nzcuzgs completes the activity by him/herself with no assistance from a helper. 5-Set-up or Clean-up Assistance-helper sets up or cleans up; patient completes activity. [place] assists only prior to or following the activity. 4-Supervision or Touching Assistance-helper provides verbal cues and/or touching/steadying and/or contact guard assistance as patient completes activity. Assistance may be provided throughout the activity or intermittently. 3-Partial/Moderate Assistance-helper does LESS THAN HALF the effort. [place] lifts, holds or supports trunk or limbs, but provides less than half the effort. 2-Substantial/Maximal Assistance-helper does MORE THAN HALF the effort. [place] lifts or holds trunk or limbs and provides more than half the effort. 9-Qftfegxde-eypvow does ALL the effort. Patient does none of the effort to com plete the activity. Or, the assistance of 2 or more helpers is required for the patient to complete the activity. If activity was not attempted, code reason: 7-Patient Refused. 9-Not Applicable-not attempted and the patient did not perform the activity before the current illness, exacerbation or injury. 10-Not Attempted due to Environmental Limitations-(lack of equipment, weather restraints, etc.). 88-Not Attempted due to Medical Conditions or Safety Concerns. Lying to Sitting/Side of Bed(Q: 2 Sit to Stand (QC): 3 Chair/Vyc-lm-Ujqyv Xfer(QC): 3 (mod assist ) Weight Bearing Right Lower Extremity: Right Partial Weight Bearing Assessment Patient is up in recliner with needs met. Patient appears to be lethargic and had difficulty with sitting balance EOB but was able to correct when redirected. PT Skilled Nursing Goals Skilled Nursing Goals PT Skilled Nursing Goals Time Frame: May 27, 2022 Roll Left & Right (QC): 3 Sit to Lying (QC): 3 Lying-Sitting on Side/Bed(QC): 3 Sit to Stand (QC): 4 Chair/Ydx-qq-Ndydc Xfer(QC): 4 Walk 10 feet (QC): 4 Walk 50ft with 2 Turns (QC): 4 PT Plan Treatment/Plan Treatment Plan: Continue Plan of Care Treatment Plan: Bed Mobility, Education, Functional Activity Connie, Functional Strength, Gait, Safety, Therapeutic Exercise, Transfers Treatment Duration: May 27, 2022 Frequency: 11 times per week Estimated Hrs Per Day: .25 hour per day Patient and/or Family Agrees t: Yes Time/GCodes Time In: 1405 Time Out: 1418 Total Billed Treatment Time: 13 Total Billed Treatment 1 visit FA 13 min SUJIT GONZALES PT May 22, 2022 14:39
[2022-05-23] VITALS (7 sets, daily range): BP systolic 95–153; BP diastolic 47–78
[2022-05-23] MEDS: predniSONE 5 MG TAB PO SCH (05:48)
[2022-05-23] MEDS: HYDROcodone/APAP 7.5 MG/325 MG (LORTAB, LORCET PLUS) TABLET PO PRN ×2 (05:48→13:11)
[2022-05-23] MEDS: PRENATAL VITAMIN 1 EA TAB PO SCH (05:48)
[2022-05-23] MEDS: ENOXAPARIN INJECTION 30 MG/0.3 ML SYR SC SCH (09:08)
[2022-05-23] MEDS: FOLIC ACID 1 MG TAB PO SCH (09:08)
[2022-05-23 09:19] LABS: HEMOGLOBIN 5.5 g/dL (11.5-16.0)
--- NOTE | 2022-05-23 11:26 | Progress Note ---
Standard Progress Note Progress Notes/Assess & Plan Date Seen by a Provider: May 23, 2022 Time Seen by a Provider: 11:25 Progress/Assessment & Plan no complaints Vital Signs Date Time Temp Pulse Resp B/P (MAP) Pulse Ox O2 Delivery O2 Flow Rate FiO2 05/21/22 04:09 37.1 95 18 116/69 (85) 97 Room Air 05/21/22 01:00 87 05/21/22 00:06 37.6 102 18 102/66 (78) 97 Room Air 05/20/22 21:36 100 Room Air 05/20/22 20:23 37.2 129 18 100/58 (72) 98 Room Air 05/20/22 19:00 124 05/20/22 16:03 36.7 110 18 107/62 (77) 99 Room Air 05/20/22 12:55 35.8 116 18 118/63 (81) 96 Room Air 05/20/22 12:30 Room Air 05/20/22 12:26 36.1 12 136/73 (94) 100 Room Air 05/20/22 12:20 13 142/76 (98) 100 Room Air 05/20/22 12:10 16 146/74 (98) 100 OxyMask 10.00 05/20/22 12:00 OxyMask 10.00 05/20/22 12:00 14 151/77 (101) 100 OxyMask 10.00 05/20/22 11:50 17 146/76 (99) 100 OxyMask 10.00 05/20/22 11:40 16 143/72 (95) 100 OxyMask 10.00 05/20/22 11:35 OxyMask 10.00 05/20/22 11:35 36.5 20 144/75 (98) 100 OxyMask 10.00 05/20/22 09:00 100 Room Air 05/20/22 08:40 36.5 90 18 118/67 (84) 100 Room Air I & O 05/21/22 07:00 Intake Total 1720 ml Output Total 1875 ml Balance -155 ml Laboratory Tests Test 05/21/22 07:20 Range/Units Hemoglobin 7.0 L 11.5-16.0 g/dL Hematocrit 22 L 35-52 % R hip dressing intact intact DF and PF of toes and ankle distally with intact sensation throughout s/p R hip IM bill PT with PWB will need NH placement no blood products Final Diagnosis fells a little out of sorts Vital Signs Date Time Temp Pulse Resp B/P (MAP) Pulse Ox O2 Delivery O2 Flow Rate FiO2 05/23/22 09:00 98 Nasal Cannula 2.00 05/23/22 08:00 37.2 80 16 137/64 (88) 96 Nasal Cannula 2.00 05/23/22 07:00 77 05/23/22 06:18 37.1 05/23/22 05:48 37.1 05/23/22 04:00 37.1 89 18 140/63 (88) 97 Nasal Cannula 2.00 05/23/22 01:00 82 05/23/22 00:00 36.8 81 18 121/70 (87) 98 Nasal Cannula 2.00 05/22/22 23:02 36.4 93 20 120/69 (86) 98 Nasal Cannula 2.00 05/22/22 21:00 98 Nasal Cannula 2.00 05/22/22 20:40 36.4 102 20 123/65 (84) 94 Room Air 05/22/22 19:00 90 05/22/22 16:29 37.6 83 20 104/61 (75) 95 Room Air 05/22/22 12:51 95 05/22/22 11:59 37.7 110 19 145/71 (95) 96 Room Air I & O 05/23/22 07:00 Intake Total 2496.25 ml Output Total 2325 ml Balance 171.25 ml Laboratory Tests Test 05/23/22 09:05 Range/Units Hemoglobin 5.5 *L 11.5-16.0 g/dL Hematocrit 17 *L 35-52 % R hip dressing intact no calf tenderness s/p R hip IM bill to NH wednesday FU two weeks ROSA SHEETS MD May 23, 2022 11:26
--- NOTE | 2022-05-23 11:57 | Physical Therapy Daily Note ---
PT Daily Note-Current Subjective Patient lying supine in bed upon PT arrival, agreeable to treatment. Rates pain at 7/10 in right hip. Transfers SCALE: Activities may be completed with or without assistive devices. 3-Rcmicmkhly-pwqniic completes the activity by him/herself with no assistance from a helper. 5-Set-up or Clean-up Assistance-helper sets up or cleans up; patient completes activity. [place] assists only prior to or following the activity. 4-Supervision or Touching Assistance-helper provides verbal cues and/or touching/steadying and/or contact guard assistance as patient completes activity. Assistance may be provided throughout the activity or intermittently. 3-Partial/Moderate Assistance-helper does LESS THAN HALF the effort. [place] lifts, holds or supports trunk or limbs, but provides less than half the effort. 2-Substantial/Maximal Assistance-helper does MORE THAN HALF the effort. [place] lifts or holds trunk or limbs and provides more than half the effort. 0-Yzuihwygm-cgzjxb does ALL the effort. Patient does none of the effort to complete the activity. Or, the assistance of 2 or more helpers is required for the patient to complete the activity. If activity was not attempted, code reason: 7-Patient Refused. 9-Not Applicable-not attempted and the patient did not perform the activity before the current illness, exacerbation or injury. 10-Not Attempted due to Environmental Limitations-(lack of equipment, weather restraints, etc.). 88-Not Attempted due to Medical Conditions or Safety Concerns. Roll Left & Right (QC): 2 Sit to Lying (QC): 2 Lying to Sitting/Side of Bed(Q: 2 Sit to Stand (QC): 2 Chair/Mdo-co-Kojlx Xfer(QC): 2 Weight Bearing Right Lower Extremity: Right Partial Weight Bearing Gait Training Does the Patient Walk?: No and Walking Goal IS indicated Exercises Supine Ex: Ankle pumps, Quad Set, Glut sets Supine Reps: 20 Assessment Current Status: Poor Progress Patient tolerated poorly. Reports she feels weak and just can't move. Patient performs therapeutic exercise as listed above. Patient performs sit to stand with Max A, however is unable to fully stand erect. Left hip demonstrates significant adduction, mild flexion and internal rotation. Appears her left LE is longer than her right LE in standing, however difficulty to assess as patient requires max A to maintain standing. Patient requires max A for all bed mobility and transfers. Patient in chair post treatment with all needs met, nursing notified, call light in hand. PT Brand Representative Goals Detention Goals PT Brand Representative Goals Time Frame: May 27, 2022 Roll Left & Right (QC): 3 Sit to Lying (QC): 3 Lying-Sitting on Side/Bed(QC): 3 Sit to Stand (QC): 4 Chair/Xbb-fw-Vufox Xfer(QC): 4 Walk 10 feet (QC): 4 Walk 50ft with 2 Turns (QC): 4 PT Plan Treatment/Plan Treatment Plan: Continue Plan of Care Treatment Plan: Bed Mobility, Education, Functional Activity Connie, Functional Strength, Gait, Safety, Therapeutic Exercise, Transfers Treatment Duration: May 27, 2022 Frequency: 11 times per week Estimated Hrs Per Day: .25 hour per day Patient and/or Family Agrees t: Yes Safety Risks/Education Patient Education: Transfer Techniques, Reviewed Precautions, Safety Issues Teaching Recipient: Patient Teaching Methods: Demonstration, Discussion Response to Teaching: Reinforcement Needed Time/GCodes Time In: 1117 Time Out: 1141 Total Billed Treatment Time: 24 Total Billed Treatment Visit, FA, Ex YESY RUSSELL PT May 23, 2022 11:57
--- NOTE | 2022-05-23 18:22 | Progress Note - Hospitalist ---
Subjective HPI/CC On Admission Date Seen by Provider: May 23, 2022 Time Seen by Provider: 11:20 Patient is a 66-year-old female with a past medical history of rheumatoid arthritis who presented to the emergency department due to hip pain. She reports she was sitting on a stool last night and fell off while she was changing her socks and was there from 11 PM until 11 AM this morning. She was unable to get up all night. She is on methotrexate for rheumatoid arthritis and took her dose yesterday. She has had a left hip replaced previously. She reports persistent pain despite multiple doses of fentanyl and ketamine in the emergency department. She also complains of being very anxious regarding the need for surgery. Subjective/Events-last exam She is having weakness. She denies pain. She denies shortness of breath. Objective Exam Vital Signs Vital Signs Date Time Temp Pulse Resp B/P (MAP) Pulse Ox O2 Delivery O2 Flow Rate FiO2 05/23/22 15:36 35.8 101 18 153/78 (103) Nasal Cannula 1.00 05/23/22 12:01 97 Capillary Refill : Less Than 3 Seconds General Appearance: No Apparent Distress, Thin Respiratory: Lungs Clear, No Respiratory Distress Cardiovascular: Regular Rate, Rhythm, No Murmur Gastrointestinal: Normal Bowel Sounds, Soft Extremity: Normal Inspection, No Pedal Edema Neurologic/Psychiatric: Alert, Normal Mood/Affect, Motor Weakness Results/Procedures Lab Laboratory Tests 05/23/22 09:05 Patient resulted labs reviewed. Imaging: Reviewed Imaging Report Assessment/Plan Assessment and Plan Assess & Plan/Chief Complaint Right Hip fracture Osteoporosis POD #3 Ortho following Pain regimen PT/OT Plan to DC to SNF Wednesday RA Weekly Methotrexate Folic acid Continue prednisone Acute on chronic anemia due to expected postoperative blood loss History of severe GI bleed in 2019 (hgb 3.4) Pt declines any blood products B12 and folate normal Iron low s/p Infed Hgb 5.5 today Minimize blood draws DVT ppx: SCD only due to anemia Rhabdomyolysis, resolved Diagnosis/Problems Diagnosis/Problems (1) Closed right hip fracture Status: Acute Qualifiers: Encounter type: initial encounter Qualified Codes: S72.001A - Fracture of unspecified part of neck of right femur, initial encounter for closed fracture (2) Acute postoperative anemia due to expected blood loss Status: Acute (3) Blood transfusion declined because patient is [employer] Status: Acute (4) Rheumatoid arthritis Status: Chronic (5) On methotrexate therapy Status: Chronic (6) Bipolar disorder Status: Chronic DENIA RODRIGUEZ MD May 23, 2022 18:22
[2022-05-24 03:58] VITALS: BP 111/59
[2022-05-24] MEDS: PRENATAL VITAMIN 1 EA TAB PO SCH (06:09)
[2022-05-24] MEDS: predniSONE 5 MG TAB PO SCH (06:09)
[2022-05-24 08:00] VITALS: BP 113/65
[2022-05-24] MEDS: ONDANSETRON 4 MG/2 ML (SDV) Z0FRAN IV PRN (08:18)
[2022-05-24 08:53] LABS: HEMOGLOBIN 5.8 g/dL (11.5-16.0)
[2022-05-24] MEDS: FOLIC ACID 1 MG TAB PO SCH (08:53)
[2022-05-24] MEDS: HYDROcodone/APAP 7.5 MG/325 MG (LORTAB, LORCET PLUS) TABLET PO PRN (08:53)
[2022-05-24] MEDS ORDERED: SCOPOLAMINE PATCH REMOVAL TP ONE (10:30)
[2022-05-24 11:38] VITALS: BP 101/57
--- NOTE | 2022-05-24 14:23 | Physical Therapy Progress Note ---
Therapy Progress Note Patient reports she has been vomiting this morning and does not want to participate in PT treatment. Patient educated on benefits of treatment and potential negative affects of inactivity. She states "I'm leaving tomorrow too." Nurse notified. YESY RUSSELL PT May 24, 2022 14:22
[2022-05-24 16:49] VITALS: BP 124/61
--- NOTE | 2022-05-24 17:08 | Progress Note - Hospitalist ---
Subjective HPI/CC On Admission Date Seen by Provider: May 24, 2022 Time Seen by Provider: 10:25 Patient is a 66-year-old female with a past medical history of rheumatoid arthritis who presented to the emergency department due to hip pain. She reports she was sitting on a stool last night and fell off while she was changing her socks and was there from 11 PM until 11 AM this morning. She was unable to get up all night. She is on methotrexate for rheumatoid arthritis and took her dose yesterday. She has had a left hip replaced previously. She reports persistent pain despite multiple doses of fentanyl and ketamine in the emergency department. She also complains of being very anxious regarding the need for surgery. Subjective/Events-last exam She is feeling weak and tired. She denies pain. She denies shortness of breath. She has no other complaints. Objective Exam Vital Signs Vital Signs Date Time Temp Pulse Resp B/P (MAP) Pulse Ox O2 Delivery O2 Flow Rate FiO2 05/24/22 16:49 37.5 86 18 124/61 (82) 94 Room Air 05/24/22 09:00 2.00 Capillary Refill : Less Than 3 Seconds General Appearance: No Apparent Distress, Thin Respiratory: Lungs Clear, No Respiratory Distress Cardiovascular: Regular Rate, Rhythm, No Murmur Gastrointestinal: Normal Bowel Sounds, Soft Extremity: Normal Inspection, No Pedal Edema Neurologic/Psychiatric: Alert, Motor Weakness Skin: Warm/Dry, Pallor Results/Procedures Lab Laboratory Tests 05/24/22 08:45 Patient resulted labs reviewed. Assessment/Plan Assessment and Plan Assess & Plan/Chief Complaint Right Hip fracture Osteoporosis POD #4 Ortho following Pain regimen PT/OT Plan to DC to SNF Wednesday RA Weekly Methotrexate Folic acid Continue prednisone Acute on chronic anemia due to expected postoperative blood loss History of severe GI bleed in 2019 (hgb 3.4) Pt declines any blood products B12 and folate normal Iron low s/p Infed Hgb improving, 5.8 today Minimize blood draws DVT ppx: SCD only due to anemia Rhabdomyolysis, resolved Diagnosis/Problems Diagnosis/Problems (1) Closed right hip fracture Status: Acute Qualifiers: Encounter type: initial encounter Qualified Codes: S72.001A - Fracture of unspecified part of neck of right femur, initial encounter for closed fracture (2) Acute postoperative anemia due to expected blood loss Status: Acute (3) Blood transfusion 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
[2022-05-24 20:55] VITALS: BP 102/55
[2022-05-25] VITALS: BP 105/66
[2022-05-25] MEDS: HYDROcodone/APAP 7.5 MG/325 MG (LORTAB, LORCET PLUS) TABLET PO PRN (00:09)
[2022-05-25 04:00] VITALS: BP 101/61
[2022-05-25 05:40] LABS: BASOPHILS % (AUTO) 0 % (0-10); EOSINOPHILS # (AUTO) 0.1 10^3/uL (0.0-0.3); EOSINOPHILS % (AUTO) 1 % (0-10); LYMPHOCYTES # (AUTO) 1.5 10^3/uL (1.0-4.0); LYMPHOCYTES % (AUTO) 18 % (12-44); MEAN CORPUSCULAR HEMOGLOBIN 33 pg (25-34); MEAN CORPUSCULAR HGB CONC 32 g/dL (32-36); MEAN CORPUSCULAR VOLUME 102 fL (80-99); MEAN PLATELET VOLUME 8.6 fL (9.0-12.2); MONOCYTES # (AUTO) 0.7 10^3/uL (0.0-1.0); MONOCYTES % (AUTO) 8 % (0-12); NEUTROPHILS # (AUTO) 6.1 10^3/uL (1.8-7.8); NEUTROPHILS % (AUTO) 72 % (42-75); PLATELET COUNT 267 10^3/uL (130-400); WHITE BLOOD COUNT 8.5 10^3/uL (4.3-11.0)
[2022-05-25 05:44] LABS: HEMATOCRIT 18 % (35-52); HEMOGLOBIN 5.8 g/dL (11.5-16.0)
[2022-05-25] MEDS: predniSONE 5 MG TAB PO SCH (06:48)
[2022-05-25] MEDS: PRENATAL VITAMIN 1 EA TAB PO SCH (06:48)
[2022-05-25] MEDS: FOLIC ACID 1 MG TAB PO SCH (07:58)
[2022-05-25 08:06] VITALS: BP 116/59
[2022-05-25] MEDS ORDERED: DOCUSATE SODIUM 100 MG (COLACE) CAP PO NR (10:45)
[2022-05-25] MEDS ORDERED: SENNA W/DOCUSATE (SENOKOT S) TABLET PO NR (10:45)
[2022-05-25] MEDS ORDERED: polyethylene glycoL POWDER 17 GM (MIRALAX) PACK PO NR (10:45)
[2022-05-25 11:43] VITALS: BP 115/61
== END 2022-05-25 13:07 | DRG 481 ==
LOC: EDUNIT# 11:10 → ER 11:14 → 4TH 13:57
PROVIDERS: ADMIT Family Medicine; ATTEND Internal Medicine
PROC: 0QS636Z Reposition Right Upper Femur with Intramedullary Internal Fixation Device, Percutaneous Approach (ICD-10-PCS; principal; 2022-05-20 10:03)
DX: S72.141A Displaced intertrochanteric fracture of right femur, initial encounter for closed fracture (principal); M62.82 Rhabdomyolysis; D62 Acute posthemorrhagic anemia; N39.0 Urinary tract infection, site not specified; Z68.1 Body mass index [BMI] 19.9 or less, adult; M06.9 Rheumatoid arthritis, unspecified; F31.9 Bipolar disorder, unspecified; Z66 Do not resuscitate; F41.9 Anxiety disorder, unspecified; M81.0 Age-related osteoporosis without current pathological fracture; R91.1 Solitary pulmonary nodule; Z96.642 Presence of left artificial hip joint; Z85.41 Personal history of malignant neoplasm of cervix uteri; F50.9 Eating disorder, unspecified; Z79.52 Long term (current) use of systemic steroids; Z88.8 Allergy status to other drugs, medicaments and biological substances; W07.XXXA Fall from chair, initial encounter
CPT/HCPCS: 36415; 51702; 70450; 71045; 72125; 73502; 76000; 80048; 80053; 81000; 82550; 82607; 82668; 82728; 82746; 83540; 83550; 85007; 85014; 85018; 85025; 85027; 85045; 85055; 86850; 86900; 86901; 87088; 93005; 96361; 96374; 96375

== ENCOUNTER → 2022-07-02 | Outpatient (CLI) | payer MEDICARE, OTHER ==
[~2022-07-02] MED LIST changes: -ALEN70TA2 PO; +ALEN70TA85 PO; +NITR100C10 PO
== END ==
LOC: ORTHO 10:13
PROVIDERS: ATTEND Orthopaedic Surgery
DX: M19.011 Primary osteoarthritis, right shoulder (principal)
CPT/HCPCS: 20610

== ENCOUNTER 2022-09-04 18:58 | Emergency (ER) | payer MEDICARE, OTHER ==
[~2022-09-04] VITALS: Ht 175.2 cm; Wt 55.8 kg
[2022-09-04] MEDS ORDERED: NS IV 500 ML 500 ML IV STA (19:09)
--- NOTE | 2022-09-04 19:14 | ED GU-Female ---
General Chief Complaint: - Reproductive Stated Complaint: UTI SYMPTOMS Nursing Triage Note: Increased weakness per pt. Pt also stating she has frequent UTIs and is starting to notice strong smelling urine though she does not know for sure. Pt did have a recent hip fracture and gets around the house with a walker. Source: patient, EMS Exam Limitations: no limitations History of Present Illness Date Seen by Provider: Sep 04, 2022 Time Seen by Provider: 19:00 Initial Comments 67yoF with PMH of recent right hip fracture s/p surgery and rehab stay coming in due to general weakness. She was discharged home from rehab a couple weeks ago. She has a home health worker that comes daily and as needed. She is been getting around with a walker, eating and drinking okay. Denies any chest pain, shortness of breath, abdominal pain, nausea, vomiting, diarrhea, fever, chills, focal weakness or numbness, headache, neck stiffness, new falls, or any other concerns. She states she is just generally weak and feels similar to when she last had a UTI. She states her urine has a foul smell and there is some mild dysuria. Otherwise denying any other acute complaints. Allergies and Home Medications Allergies Coded Allergies: prochlorperazine (Verified Allergy, Unknown, 11/29/19) Patient Home Medication List Home Medication List Reviewed: Yes Alendronate Sodium (Fosamax) 70 Mg Tablet, 70 MG PO WED, (Reported) Entered as Reported by: KEVIN ALLEN on 05/15/221510 Cefdinir (Cefdinir) 300 Mg Capsule, 300 MG PO BID Prescribed by: JADE SMITH on 09/04/221946 Citalopram Hydrobromide (Citalopram HBr) 40 Mg Tablet, 40 MG PO DAILY, (Reported) Entered as Reported by: KEVIN ALLEN on 05/15/22 151 Folic Acid (Folic Acid) 1 Mg Tablet, 1 MG PO DAILY, (Reported) Entered as Reported by: KEVIN ALLEN on 12/15/19 105 Lamotrigine (Lamotrigine) 150 Mg Tablet, 300 MG PO DAILY, (Reported) Entered as Reported by: KEVIN ALLEN on 05/15/22 151 Methotrexate Sodium (Methotrexate) 2.5 Mg Tablet, 15 MG PO MON, (Reported) Entered as Reported by: KEVIN ALLEN on 05/15/22 1511 Prednisone (Prednisone) 5 Mg Tablet, 5 MG PO DAILY, (Reported) Entered as Reported by: KEVIN ALLEN on 12/15/19 1055 Vit W-Ca,Fe,FA(<1 mg) ( Formula) 28 Mg Iron-800 Mcg Tablet, 1 EACH PO DAILY, (Reported) Entered as Reported by: KEVIN ALLEN on 05/15/22 1511 Review of Systems Review of Systems Constitutional: No fever EENTM: no symptoms reported Respiratory: no symptoms reported Cardiovascular: no symptoms reported Gastrointestinal: no symptoms reported Genitourinary: see HPI Musculoskeletal: no symptoms reported Skin: no symptoms reported Psychiatric/Neurological: Weakness (general) Endocrine: No Symptoms Reported Hematologic/Lymphatic: No Symptoms Reported All Other Systemes Reviewed Negative Unless Noted: Yes Past Fagvkvk-Znjabw-Nnwrlt Hx Patient Social History Tobacco Use?: No Immunizations Up To Date Tetanus Booster (TDap): Unknown First/Initial COVID19 Vaccinat: Moderna Second COVID19 Vaccination Jin: Jasmina Seasonal Allergies Seasonal Allergies: No Past Medical History Surgery/Hospitalization HX: RA, DEPRESSION L HIP REPLACEMENT, HYSTO, HANNA Surgeries: Yes (Left femur/hip surgery. ) Gallbladder, Hysterectomy, Orthopedic Respiratory: No Cardiac: No Neurological: No Genitourinary: No Gastrointestinal: Yes Chronic Constipation, Gall Bladder Disease Musculoskeletal: Yes (Right torn rotator cuff) Rheumatoid Arthritis, Fractures Endocrine: No HEENT: No Cancer: Yes Cervical Did You Recieve Any Treatments: Yes What Type of Treatment Did You: Surgical Intervention Psychosocial: Yes Eating Disorder, Anxiety, Bipolar, Depression Integumentary: No Blood Disorders: No Family Medical History Heart Disease Physical Exam Vital Signs Vital Signs - First Documented 09/04/22 19:03 Pulse 115 Resp 16 B/P (MAP) 141/81 (101) Pulse Ox 100 Capillary Refill : Height, Weight, BMI Height: '" Weight: lbs. oz. kg; 18.00 BMI Method: General Appearance: WD/WN, no apparent distress HEENT: PERRL/EOMI, normal ENT inspection, pharynx normal Neck: non-tender, full range of motion, supple, normal inspection Cardiovascular: regular rate, rhythm, no edema Respiratory: chest non-tender, lungs clear, normal breath sounds, no respiratory distress, no accessory muscle use Gastrointestinal: normal bowel sounds, non tender, soft; No distended, No guarding, No rebound Back: normal inspection, no CVA tenderness, no vertebral tenderness Extremities: normal range of motion, non-tender, normal inspection, no pedal edema, no calf tenderness, normal capillary refill Neurologic/Psychiatric: cst II-XII nml as tested, no motor/sensory deficits, alert, normal mood/affect, oriented x 3 Skin: normal color, warm/dry Lymphatic: no adenopathy Procedures/Interventions Patient Education: Explained Benefits, Explained Risks, Pt. Ack. Understanding Patient History: Problem w/Aneshesia Breath Sounds per Auscultation: Clear Heart Sounds per Auscultation: Regular Airway Exam: Mouth opens >2 fingers, Neck Full Range of Motion, Visulation of Uvula Progress/Results/Core Measures Suspected Sepsis SIRS Temperature: Pulse: 115 Respiratory Rate: 16 Laboratory Tests 09/04/22 19:11: White Blood Count 8.2 Blood Pressure 141 /81 Mean: 101 Laboratory Tests 09/04/22 19:11: Creatinine 1.63H, Platelet Count 232, Total Bilirubin 0.2 Results/Orders Lab Results Laboratory Tests Test 09/04/22 19:11 Range/Units White Blood Count 8.2 4.3-11.0 10^3/uL Red Blood Count 3.29 L 3.80-5.11 10^6/uL Hemoglobin 10.8 L 11.5-16.0 g/dL Hematocrit 32 L 35-52 % Mean Corpuscular Volume 98 80-99 fL Mean Corpuscular Hemoglobin 33 25-34 pg Mean Corpuscular Hemoglobin Concent 34 32-36 g/dL Red Cell Distribution Width 13.8 10.0-14.5 % Platelet Count 232 130-400 10^3/uL Mean Platelet Volume 8.3 L 9.0-12.2 fL Immature Granulocyte % (Auto) 0 % Neutrophils (%) (Auto) 81 H 42-75 % Lymphocytes (%) (Auto) 12 12-44 % Monocytes (%) (Auto) 7 0-12 % Eosinophils (%) (Auto) 0 0-10 % Basophils (%) (Auto) 1 0-10 % Neutrophils # (Auto) 6.6 1.8-7.8 10^3/uL Lymphocytes # (Auto) 1.0 1.0-4.0 10^3/uL Monocytes # (Auto) 0.5 0.0-1.0 10^3/uL Eosinophils # (Auto) 0.0 0.0-0.3 10^3/uL Basophils # (Auto) 0.0 0.0-0.1 10^3/uL Immature Granulocyte # (Auto) 0.0 0.0-0.1 10^3/uL Urine Color YELLOW Urine Clarity SLIGHTLY CLOUDY Urine pH 6.0 5-9 Urine Specific Brule 1.015 L 1.016-1.022 Urine Protein NEGATIVE NEGATIVE Urine Glucose (UA) NEGATIVE NEGATIVE Urine Ketones NEGATIVE NEGATIVE Urine Nitrite POSITIVE H NEGATIVE Urine Bilirubin NEGATIVE NEGATIVE Urine Urobilinogen 0.2 < = 1.0 MG/DL Urine Leukocyte Esterase 2+ H NEGATIVE Urine RBC (Auto) NEGATIVE NEGATIVE Urine RBC NONE /HPF Urine WBC 50-100 H /HPF Urine Crystals NONE /LPF Urine Bacteria LARGE H /HPF Urine Casts NONE /LPF Urine Mucus NEGATIVE /LPF Urine Culture Indicated YES Sodium Level 133 L 135-145 MMOL/L Potassium Level 4.7 3.6-5.0 MMOL/L Chloride Level 101 98-107 MMOL/L Carbon Dioxide Level 24 21-32 MMOL/L Anion Gap 8 5-14 MMOL/L Blood Urea Nitrogen 31 H 7-18 MG/DL Creatinine 1.63 H 0.60-1.30 MG/DL Estimat Glomerular Filtration Rate 34 BUN/Creatinine Ratio 19 Glucose Level 115 H 70-105 MG/DL Calcium Level 9.5 8.5-10.1 MG/DL Corrected Calcium 9.4 8.5-10.1 MG/DL Magnesium Level 2.1 1.6-2.4 MG/DL Total Bilirubin 0.2 0.1-1.0 MG/DL Aspartate Amino Transf (AST/SGOT) 15 5-34 U/L Alanine Aminotransferase (ALT/SGPT) 12 0-55 U/L Alkaline Phosphatase 98 40-136 U/L Troponin I < 0.30 <0.30 NG/ML Total Protein 6.8 6.4-8.2 GM/DL Albumin 4.1 3.2-4.5 GM/DL My Orders Orders - JADE SMITH MD Cbc With Automated Diff (09/04/22 19:09) Comprehensive Metabolic Panel (09/04/22 19:09) Magnesium (09/04/22 19:09) Ua Culture If Indicated (09/04/22 19:09) Troponin I Fs (09/04/22 19:09) Ns Iv 500 Ml (Sodium Chloride 0.9%) (09/04/22 19:09) Urine Culture (09/04/22 19:11) Ceftriaxone 1 Gm Pre-Mix (Rocephin 1 Gm (09/04/22 19:45) Acetaminophen Tablet (Tylenol Tablet) (09/04/22 20:45) Medications Given in ED Current Medications Medications Dose Ordered Sig/Lesley Route Start Time Stop Time Status Last Admin Dose Admin Acetaminophen 1,000 mg ONCE ONCE PO 09/04/22 20:45 09/04/22 20:46 DC 09/04/22 20:43 1,000 MG Ceftriaxone Sodium/Dextrose 50 ml @ 100 mls/hr ONCE ONCE IV 09/04/22 19:45 09/04/22 20:14 DC 09/04/22 19:55 100 MLS/HR Vital Signs/I&O 09/04/22 19:03 Pulse 115 Resp 16 B/P (MAP) 141/81 (101) Pulse Ox 100 Capillary Refill : Blood Pressure Mean: 101 Progress Note : Progress Note 67-year-old female with above history coming in due to general weakness and dysuria. ABCs were intact and vitals were stable on presentation although she is mildly tachycardic. An IV was placed and basic labs were obtained and significant for mild PHILIP as well as urinary tract infection with nitrites, leukocyte esterase, and white blood cells in her urine. She was given a bolus of IV fluids as well as ceftriaxone. She is tolerating p.o. here. I suspect her PHILIP is due to decreased p.o. at home. I will recommend she has follow-up lab work within the next week to ensure her kidney function improves which she is agreeable to. No focal weakness on exam, and otherwise I believe she is stable for discharge with outpatient follow-up. She was sent home with strict return precautions. Of note, prior to discharge, the patient was requesting if she could be put back in a halfway since she would feel safer there. I contacted numerous nursing homes within [facility], and [place] and unfortunately none of them are taking emergency admissions tonight. The patient is able to ambulate with a walker, does have assistance at home, and I do not believe is immediate danger to herself. Departure Impression Primary Impression: Cystitis Additional Impression: PHILIP (acute kidney injury) Disposition: 01 HOME, SELF-CARE Condition: Stable Departure-Patient Inst. Decision time for Depature: 20:10 Referrals: ANI VARMA DO (PCP/Family) Primary Care Physician Patient Instructions: Urinary Tract Infections in Adults, Acute Kidney Injury (DC) Add. Discharge Instructions: You have a kidney infection so you will be on antibiotics for the next week. Be sure to double up on your fluids to stay hydrated since your kidney function was a little bit worse today. Please be sure to have your lab work redrawn to check your kidney function within the next week. Scripts Cefdinir (Cefdinir) 300 Mg Capsule 300 MG PO BID for 7 Days, #14 CAP 0 Refills Prov: JADE SMITH MD 09/04/22 JADE SMITH MD Sep 04, 2022 19:14
[2022-09-04 19:18] LABS: BASOPHILS % (AUTO) 1 % (0-10); EOSINOPHILS % (AUTO) 0 % (0-10); HEMATOCRIT 32 % (35-52); HEMOGLOBIN 10.8 g/dL (11.5-16.0); LYMPHOCYTES % (AUTO) 12 % (12-44); MEAN CORPUSCULAR HEMOGLOBIN 33 pg (25-34); MEAN CORPUSCULAR HGB CONC 34 g/dL (32-36); MEAN CORPUSCULAR VOLUME 98 fL (80-99); MEAN PLATELET VOLUME 8.3 fL (9.0-12.2); MONOCYTES # (AUTO) 0.5 10^3/uL (0.0-1.0); MONOCYTES % (AUTO) 7 % (0-12); NEUTROPHILS # (AUTO) 6.6 10^3/uL (1.8-7.8); NEUTROPHILS % (AUTO) 81 % (42-75); PLATELET COUNT 232 10^3/uL (130-400); WHITE BLOOD COUNT 8.2 10^3/uL (4.3-11.0)
[2022-09-04 19:20] LABS: BILIRUBIN,URINE NEGATIVE (NEGATIVE); COLOR,URINE YELLOW; GLUCOSE, URINE (UA) NEGATIVE (NEGATIVE); KETONES,URINE NEGATIVE (NEGATIVE); LEUKOCYTE ESTERASE ,URINE 2+ (NEGATIVE); NITRITE,URINE POSITIVE (NEGATIVE); PROTEIN,URINE NEGATIVE (NEGATIVE)
[2022-09-04 19:24] LABS: BACTERIA,URINE LARGE /HPF; CLARITY,URINE SLIGHTLY CLOUDY; WBC,URINE 50-100 /HPF
[2022-09-04 19:40] LABS: ALANINE AMINOTRANSFERASE 12 U/L (0-55); ALBUMIN 4.1 GM/DL (3.2-4.5); ALKALINE PHOSPHATASE 98 U/L (40-136); BILIRUBIN,TOTAL 0.2 MG/DL (0.1-1.0); BUN/CREATININE RATIO 19; CALCIUM 9.5 MG/DL (8.5-10.1); CARBON DIOXIDE 24 MMOL/L (21-32); CHLORIDE 101 MMOL/L (98-107); CREATININE SERUM 1.63 MG/DL (0.60-1.30); GFR ESTIMATED 34; GLUCOSE 115 MG/DL (70-105); MAGNESIUM 2.1 MG/DL (1.6-2.4); POTASSIUM 4.7 MMOL/L (3.6-5.0); SODIUM 133 MMOL/L (135-145); TOTAL PROTEIN 6.8 GM/DL (6.4-8.2)
[2022-09-04] MEDS ORDERED: cefTRIAXone 1 GM PRE-MIX 50 ML IV ONE (19:45)
[2022-09-04] MEDS ORDERED: CEFD300C3 PO (19:47)
[2022-09-04] MEDS ORDERED: ACETAMINOPHEN 500 MG TAB (TYLENOL) PO ONE (20:45)
[2022-09-04 21:54] VITALS: BP 128/74
== END 2022-09-04 21:54 ==
LOC: EDUNIT# 18:58 → ER FS 18:59
DX: N30.90 Cystitis, unspecified without hematuria (principal); N17.9 Acute kidney failure, unspecified; R00.0 Tachycardia, unspecified
CPT/HCPCS: 36415; 80053; 81000; 83735; 84484; 85025; 87077; 87088; 87186; 99284

== ENCOUNTER 2022-09-08 17:41 | Emergency (ER) | payer MEDICARE, OTHER ==
[~2022-09-08] VITALS: Ht 175.3 cm; Wt 56.2 kg
[~2022-09-08 17:41] MED LIST changes: +CEFD300C3 PO
--- NOTE | 2022-09-08 17:55 | ED General ---
General Chief Complaint: Lower Extremity Stated Complaint: R HIP PAIN History of Present Illness Date Seen by Provider: Sep 08, 2022 Time Seen by Provider: 17:51 Initial Comments 67-year-old female brought in for generalized weakness and some right hip pain. Patient reports that she was diagnosed with a UTI couple days ago. That she was doing pretty good however today she had an episode where she was really weak walking to the restroom and kind of slid down to the ground with some help. She reports some mild pain in the right hip from when she twisted when she slid to the floor. Presents today because "for like she needs to be admitted somewhere " because she cant take care of her self at home because she lives alone. Patient's symptoms of just generalized weakness and some hip pain but denies fevers chills nausea vomiting or other systemic complaints Allergies and Home Medications Allergies Coded Allergies: prochlorperazine (Verified Allergy, Unknown, 11/29/19) Patient Home Medication List Home Medication List Reviewed: Yes Alendronate Sodium (Fosamax) 70 Mg Tablet, 70 MG PO WED, (Reported) Entered as Reported by: KEVIN ALLEN on 05/15/221510 Cefdinir (Cefdinir) 300 Mg Capsule, 300 MG PO BID Prescribed by: JADE SMITH on 09/04/221946 Citalopram Hydrobromide (Citalopram HBr) 40 Mg Tablet, 40 MG PO DAILY, (Repor ana) Entered as Reported by: KEVIN ALLEN on 05/15/22 151 Folic Acid (Folic Acid) 1 Mg Tablet, 1 MG PO DAILY, (Reported) Entered as Reported by: KEVIN ALLEN on 12/15/19 105 Lamotrigine (Lamotrigine) 150 Mg Tablet, 300 MG PO DAILY, (Reported) Entered as Reported by: KEVIN ALLEN on 05/15/221510 Methotrexate Sodium (Methotrexate) 2.5 Mg Tablet, 15 MG PO MON, (Reported) Entered as Reported by: KEVIN ALLEN on 05/15/22 151 Prednisone (Prednisone) 5 Mg Tablet, 5 MG PO DAILY, (Reported) Entered as Reported by: KEVIN ALLEN on 12/15/19 1055 Vit W-Ca,Fe,FA(<1 mg) ( Formula) 28 Mg Iron-800 Mcg Tablet, 1 EACH PO DAILY, (Reported) Entered as Reported by: EKVIN ALLEN on 05/15/22 1511 Review of Systems Review of Systems Constitutional: No chills, No fever; malaise, weakness EENTM: no symptoms reported Respiratory: no symptoms reported Cardiovascular: no symptoms reported Gastrointestinal: no symptoms reported Genitourinary: see HPI Musculoskeletal: no symptoms reported Skin: no symptoms reported Psychiatric/Neurological: No Symptoms Reported Past Lqctvph-Ofitag-Jraivs Hx Patient Social History Tobacco Use?: No Use of E-Cig and/or Vaping dev: No Substance use?: No Alcohol Use?: No Pt feels they are or have been: No Immunizations Up To Date Tetanus Booster (TDap): Unknown First/Initial COVID19 Vaccinat: Moderna Second COVID19 Vaccination Jin: Moderna Third COVID19 Vaccination Date: Seasonal Allergies Seasonal Allergies: No Past Medical History Surgery/Hospitalization HX: RA, DEPRESSION L HIP REPLACEMENT, HYSTO, HANNA Surgeries: Yes (Left femur/hip surgery. ) Gallbladder, Hysterectomy, Orthopedic Respiratory: No Cardiac: No Neurological: No Genitourinary: No Gastrointestinal: Yes Chronic Constipation, Gall Bladder Disease Musculoskeletal: Yes (Right torn rotator cuff) Rheumatoid Arthritis, Fractures Endocrine: No HEENT: No Cancer: Yes Cervical Did You Recieve Any Treatments: Yes What Type of Treatment Did You: Surgical Intervention Psychosocial: Yes Eating Disorder, Anxiety, Bipolar, Depression Integumentary: No Blood Disorders: No Family Medical History Heart Disease Physical Exam Vital Signs Vital Signs - First Documented 09/08/22 17:42 Temp 36.6 Pulse 109 Resp 16 B/P (MAP) 117/66 (83) Pulse Ox 99 O2 Delivery Room Air Capillary Refill : Height, Weight, BMI Height: '" Weight: lbs. oz. kg; 18.00 BMI Method: General Appearance: Chronically ill, Other (Appears older than stated age) Neck: Full Range of Motion Respiratory: Lungs Clear, Normal Breath Sounds Cardiovascular: Regular Rate, Rhythm, No Edema Gastrointestinal: Non Tender, Soft Extremity: Normal Capillary Refill, Other (Mild tenderness palpation right hip) Neurologic/Psychiatric: Alert, Oriented x3, No Motor/Sensory Deficits, Normal Mood/Affect, social service agency director II-XII Norm as Tested Skin: Normal Color, Warm/Dry Procedures/Interventions Patient Education: Explained Benefits, Explained Risks, Pt. Ack. Understanding Patient History: Problem w/Aneshesia Breath Sounds per Auscultation: Clear Heart Sounds per Auscultation: Regular Airway Exam: Mouth opens >2 fingers, Neck Full Range of Motion, Visulation of Uvula Progress/Results/Core Measures Suspected Sepsis SIRS Temperature: Pulse: Respiratory Rate: Laboratory Tests 09/08/22 18:15: White Blood Count 11.1H Blood Pressure / Mean: Laboratory Tests 09/08/22 18:15: Creatinine 0.89, Platelet Count 213, Total Bilirubin 0.2 Results/Orders Lab Results Laboratory Tests Test 09/08/22 18:15 09/08/22 18:55 Range/Units White Blood Count 11.1 H 4.3-11.0 10^3/uL Red Blood Count 3.58 L 3.80-5.11 10^6/uL Hemoglobin 11.9 11.5-16.0 g/dL Hematocrit 36 35-52 % Mean Corpuscular Volume 100 H 80-99 fL Mean Corpuscular Hemoglobin 33 25-34 pg Mean Corpuscular Hemoglobin Concent 33 32-36 g/dL Red Cell Distribution Width 14.1 10.0-14.5 % Platelet Count 213 130-400 10^3/uL Mean Platelet Volume 8.7 L 9.0-12.2 fL Immature Granulocyte % (Auto) 0 % Neutrophils (%) (Auto) 85 H 42-75 % Lymphocytes (%) (Auto) 6 L 12-44 % Monocytes (%) (Auto) 8 0-12 % Eosinophils (%) (Auto) 0 0-10 % Basophils (%) (Auto) 0 0-10 % Neutrophils # (Auto) 9.4 H 1.8-7.8 10^3/uL Lymphocytes # (Auto) 0.7 L 1.0-4.0 10^3/uL Monocytes # (Auto) 0.9 0.0-1.0 10^3/uL Eosinophils # (Auto) 0.0 0.0-0.3 10^3/uL Basophils # (Auto) 0.0 0.0-0.1 10^3/uL Immature Granulocyte # (Auto) 0.0 0.0-0.1 10^3/uL Neutrophils % (Manual) 86 % Lymphocytes % (Manual) 6 % Monocytes % (Manual) 8 % Eosinophils % (Manual) 0 % Basophils % (Manual) 0 % Band Neutrophils 0 % Sodium Level 134 L 135-145 MMOL/L Potassium Level 4.1 3.6-5.0 MMOL/L Chloride Level 98 98-107 MMOL/L Carbon Dioxide Level 27 21-32 MMOL/L Anion Gap 9 5-14 MMOL/L Blood Urea Nitrogen 25 H 7-18 MG/DL Creatinine 0.89 0.60-1.30 MG/DL Estimat Glomerular Filtration Rate 71 BUN/Creatinine Ratio 28 Glucose Level 112 H 70-105 MG/DL Calcium Level 9.8 8.5-10.1 MG/DL Corrected Calcium 9.5 8.5-10.1 MG/DL Total Bilirubin 0.2 0.1-1.0 MG/DL Aspartate Amino Transf (AST/SGOT) 16 5-34 U/L Alanine Aminotransferase (ALT/SGPT) 12 0-55 U/L Alkaline Phosphatase 108 40-136 U/L Troponin I < 0.30 <0.30 NG/ML Total Protein 7.4 6.4-8.2 GM/DL Albumin 4.4 3.2-4.5 GM/DL Urine Color YELLOW Urine Clarity CLEAR Urine pH 6.0 5-9 Urine Specific [place] 1.020 1.016-1.022 Urine Protein NEGATIVE NEGATIVE Urine Glucose (UA) NEGATIVE NEGATIVE Urine Ketones NEGATIVE NEGATIVE Urine Nitrite NEGATIVE NEGATIVE Urine Bilirubin NEGATIVE NEGATIVE Urine Urobilinogen 0.2 < = 1.0 MG/DL Urine Leukocyte Esterase TRACE H NEGATIVE Urine RBC (Auto) NEGATIVE NEGATIVE Urine RBC NONE /HPF Urine WBC 2-5 /HPF Urine Squamous Epithelial Cells 0-2 /HPF Urine Crystals NONE /LPF Urine Bacteria TRACE /HPF Urine Casts NONE /LPF Urine Mucus SMALL H /LPF Urine Culture Indicated NO My Orders Orders - TERRAZAS,JORGE A L DO Cbc With Automated Diff (09/08/22 18:00) Comprehensive Metabolic Panel (09/08/22 18:00) Ua Culture If Indicated (09/08/22 18:00) Troponin I Fs (09/08/22 18:00) Ekg Tracing (09/08/22 18:00) Monitor-Rhythm Ecg Trace Only (09/08/22 18:00) Chest 1 View Ap/Pa Only (09/08/22 18:00) Hip 2-3 View Left (09/08/22 18:00) Lactated Ringers (Lr 1000 Ml Iv Solution (09/08/22 18:00) Manual Differential (09/08/22 18:15) Vital Signs/I&O 09/08/22 17:42 Temp 36.6 Pulse 109 Resp 16 B/P (MAP) 117/66 (83) Pulse Ox 99 O2 Delivery Room Air Capillary Refill : Progress Note : Progress Note Patient ambulated in the ER approximately 15 to 20 feet with the help of a walker. At this time there are no indications for acute admission. Discussed with her the need to call her primary care provider tomorrow for either more home health care needs or to help with placement. She is stable and discharged ECG Initial ECG Impression Date: Sep 08, 2022 Initial ECG Impression Time: 18:12 Initial ECG Rate: 106 Initial ECG Rhythm: S.Tach Initial ECG Impression: Nonspecific Changes Comment no acute changes Departure Impression Primary Impression: Generalized weakness Disposition: 01 HOME, SELF-CARE Condition: Stable Departure-Patient Inst. Referrals: ANI VARMA DO (PCP/Family) Primary Care Physician Patient Instructions: Generalized Weakness (DC) Add. Discharge Instructions: Please call Dr. VARMA's office in the morning to help arrange for either full-time home health or help with rehab placement or [facility] short[facility]. All discharge instructions reviewed with patient and/or family. Voiced understanding. JORGE A TERRAZAS DO Sep 08, 2022 17:55
[2022-09-08] MEDS ORDERED: LACTATED RINGERS 1,000 ML IV STA (18:00)
[2022-09-08 18:19] LABS: BASOPHILS % (AUTO) 0 % (0-10); EOSINOPHILS % (AUTO) 0 % (0-10); HEMATOCRIT 36 % (35-52); HEMOGLOBIN 11.9 g/dL (11.5-16.0); LYMPHOCYTES # (AUTO) 0.7 10^3/uL (1.0-4.0); LYMPHOCYTES % (AUTO) 6 % (12-44); MEAN CORPUSCULAR HEMOGLOBIN 33 pg (25-34); MEAN CORPUSCULAR HGB CONC 33 g/dL (32-36); MEAN CORPUSCULAR VOLUME 100 fL (80-99); MEAN PLATELET VOLUME 8.7 fL (9.0-12.2); MONOCYTES # (AUTO) 0.9 10^3/uL (0.0-1.0); MONOCYTES % (AUTO) 8 % (0-12); NEUTROPHILS # (AUTO) 9.4 10^3/uL (1.8-7.8); NEUTROPHILS % (AUTO) 85 % (42-75); PLATELET COUNT 213 10^3/uL (130-400); WHITE BLOOD COUNT 11.1 10^3/uL (4.3-11.0)
[2022-09-08 18:37] LABS: BAND NEUTROPHILS 0 %; LYMPHOCYTES % (MANUAL) 6 %; MONOCYTES % (MANUAL) 8 %; NEUTROPHILS % (MANUAL) 86 %
[2022-09-08 18:38] LABS: BASOPHILS % (MANUAL) 0 %; EOSINOPHILS % (MANUAL) 0 %
[2022-09-08 18:44] LABS: BUN/CREATININE RATIO 28; CALCIUM 9.8 MG/DL (8.5-10.1); CARBON DIOXIDE 27 MMOL/L (21-32); CHLORIDE 98 MMOL/L (98-107); CREATININE SERUM 0.89 MG/DL (0.60-1.30); GFR ESTIMATED 71; GLUCOSE 112 MG/DL (70-105); POTASSIUM 4.1 MMOL/L (3.6-5.0); SODIUM 134 MMOL/L (135-145)
[2022-09-08 18:45] LABS: ALANINE AMINOTRANSFERASE 12 U/L (0-55); ALBUMIN 4.4 GM/DL (3.2-4.5); ALKALINE PHOSPHATASE 108 U/L (40-136); BILIRUBIN,TOTAL 0.2 MG/DL (0.1-1.0); TOTAL PROTEIN 7.4 GM/DL (6.4-8.2)
--- NOTE | 2022-09-08 18:46 | Diagnostic Imaging Report ---
INDICATION: Weakness. 3 views were obtained FINDINGS: There are post-surgical changes of a left hip arthroplasty with intramedullary extension into the femur. This is bound by cerclage wires. There are dystrophic calcifications superiorly and about the lesser trochanter. There is no evidence of acute fracture or dislocation. IMPRESSION: Postsurgical changes of the left hip with dystrophic calcifications, as described. Dictated by: Dictated on workstation # [id number]
--- NOTE | 2022-09-08 18:46 | Diagnostic Imaging Report ---
INDICATION: Weakness. COMPARISON is made with prior exam of 05/19/2022 FINDINGS: The heart size is normal. The previously described nodular densities in the right lung base appear to be subacute rib fractures. No pleural effusion or pneumothorax. The mediastinum is unremarkable. IMPRESSION: No acute cardiopulmonary abnormality. Right posterolateral lower subacute rib fractures; this appears be the 8th and 9th ribs. Dictated by: Dictated on workstation # [id number]
[2022-09-08 19:03] LABS: BILIRUBIN,URINE NEGATIVE (NEGATIVE); CLARITY,URINE CLEAR; COLOR,URINE YELLOW; GLUCOSE, URINE (UA) NEGATIVE (NEGATIVE); KETONES,URINE NEGATIVE (NEGATIVE); LEUKOCYTE ESTERASE ,URINE TRACE (NEGATIVE); NITRITE,URINE NEGATIVE (NEGATIVE); PROTEIN,URINE NEGATIVE (NEGATIVE)
[2022-09-08 19:08] LABS: BACTERIA,URINE TRACE /HPF; SQUAMOUS EPITHELIAL CELL,UR 0-2 /HPF
[2022-09-08 20:40] VITALS: BP 138/71
== END 2022-09-08 20:40 | disposition home or self-care (01) ==
LOC: EDUNIT# 17:41 → ER FS 17:42
DX: R53.1 Weakness (principal)
CPT/HCPCS: 36415; 71045; 73502; 80053; 81000; 84484; 85007; 85027; 93005; 93041

== ENCOUNTER 2022-11-15 00:05 | Emergency (ER) | payer MEDICARE, OTHER ==
[~2022-11-15] VITALS: Ht 175.2 cm; Wt 56.8 kg
--- NOTE | 2022-11-15 00:11 | ED Back Pain ---
General Stated Complaint: LOW BACK PAIN History of Present Illness Date Seen by Provider: Nov 15, 2022 Time Seen by Provider: 00:10 Initial Comments 67-year-old female with PMH of chronic back pain and recent right hip surgery approximately 4 months ago, is brought in by EMS with complaints of acute on chronic low back pain. Patient sits in a chair all day in her home, and states that her back pain began today morning around 11 AM. Patient has been having polyuria. Patient's pain level is 7/10, and she was unable to walk to her commode. Patient has a home health care nurse who comes to her home daily. Denies falls, injury, trauma, sensory loss in her legs, bowel and bladder dysfunction, dysuria, hematuria. Allergies and Home Medications Allergies Coded Allergies: prochlorperazine (Verified Allergy, Unknown, 11/29/19) Patient Home Medication List Home Medication List Reviewed: Yes Alendronate Sodium (Fosamax) 70 Mg Tablet, 70 MG PO WED, (Reported) Entered as Reported by: KEVIN ALLEN on 05/15/221510 Cefdinir (Cefdinir) 300 Mg Capsule, 300 MG PO BID Prescribed by: JADE SMITH on 09/04/221946 Citalopram Hydrobromide (Citalopram HBr) 40 Mg Tablet, 40 MG PO DAILY, (Reported) Entered as Reported by: KEVIN ALLEN on 05/15/22 151 Folic Acid (Folic Acid) 1 Mg Tablet, 1 MG PO DAILY, (Reported) Entered as Reported by: KEVIN ALLEN on 12/15/19 1055 Lamotrigine (Lamotrigine) 150 Mg Tablet, 300 MG PO DAILY, (Reported) Entered as Reported by: KEVIN ALLEN on 05/15/22 151 Methotrexate Sodium (Methotrexate) 2.5 Mg Tablet, 15 MG PO MON, (Reported) Entered as Reported by: KEVIN ALLEN on 05/15/22 151 Prednisone (Prednisone) 5 Mg Tablet, 5 MG PO DAILY, (Reported) Entered as Reported by: KEVIN ALLEN on 12/15/19 1055 Vit W-Ca,Fe,FA(<1 mg) ( Formula) 28 Mg Iron-800 Mcg Tablet, 1 EACH PO DAILY, (Reported) Entered as Reported by: KEVIN ALLEN on 05/15/22 1511 Review of Systems Constitutional: no symptoms reported EENTM: no symptoms reported Respiratory: no symptoms reported Cardiovascular: no symptoms reported Gastrointestinal: no symptoms reported Genitourinary: frequency : No Musculoskeletal: back pain Skin: no symptoms reported Psychiatric/Neurological: No Symptoms Reported Past Gwsomre-Sapyfo-Brcpzl Hx Immunizations Up To Date Tetanus Booster (TDap): Unknown First/Initial COVID19 Vaccinat: Moderna Second COVID19 Vaccination Jin: Moderna Third COVID19 Vaccination Date: Seasonal Allergies Seasonal Allergies: No Past Medical History Surgery/Hospitalization HX: RA, DEPRESSION L HIP REPLACEMENT, HYSTO, HANNA Surgeries: Yes (Left femur/hip surgery. ) Gallbladder, Hysterectomy, Orthopedic Respiratory: No Cardiac: No Neurological: No Genitourinary: No Gastrointestinal: Yes Chronic Constipation, Gall Bladder Disease Musculoskeletal: Yes (Right torn rotator cuff) Rheumatoid Arthritis, Fractures Endocrine: No HEENT: No Cancer: Yes Cervical Did You Recieve Any Treatments: Yes What Type of Treatment Did You: Surgical Intervention Psychosocial: Yes Eating Disorder, Anxiety, Bipolar, Depression Integumentary: No Blood Disorders: No Family Medical History Heart Disease Physical Exam Vital Signs Vital Signs - First Documented 11/15/22 00:08 Temp 37.5 Pulse 103 Resp 18 B/P (MAP) 117/71 (86) Pulse Ox 97 O2 Delivery Room Air Capillary Refill : Height, Weight, BMI Height: '" Weight: lbs. oz. kg; 18.00 BMI Method: General Appearance: No Apparent Distress, WD/WN HEENT: PERRL/EOMI Neck: Full Range of Motion, Normal Inspection Gastrointestinal: Normal Bowel Sounds, Non Tender, Soft Back: Normal Inspection, No CVA Tenderness, No Vertebral Tenderness, Muscle Spasm (Bilaterally in the lumbar area) Extremity: Normal Range of Motion Neurologic/Psychiatric: Alert, Oriented x3, No Motor/Sensory Deficits Skin: Normal Color Procedures/Interventions Patient Education: Explained Benefits, Explained Risks, Pt. Ack. Understanding Patient History: Problem w/Aneshesia Breath Sounds per Auscultation: Clear Heart Sounds per Auscultation: Regular Airway Exam: Mouth opens >2 fingers, Neck Full Range of Motion, Visulation of Uvula Progress/Results/Core Measures Results/Orders Lab Results Laboratory Tests Test 11/15/22 00:15 Range/Units Urine Color YELLOW Urine Clarity CLOUDY Urine pH 6.0 5-9 Urine Specific [place] 1.025 H 1.016-1.022 Urine Protein NEGATIVE NEGATIVE Urine Glucose (UA) NEGATIVE NEGATIVE Urine Ketones NEGATIVE NEGATIVE Urine Nitrite POSITIVE H NEGATIVE Urine Bilirubin NEGATIVE NEGATIVE Urine Urobilinogen 0.2 < = 1.0 MG/DL Urine Leukocyte Esterase 1+ H NEGATIVE Urine RBC (Auto) NEGATIVE NEGATIVE Urine RBC NONE /HPF Urine WBC 50-100 H /HPF Urine Crystals NONE /LPF Urine Bacteria LARGE H /HPF Urine Casts NONE /LPF Urine Mucus NEGATIVE /LPF Urine Culture Indicated YES My Orders Orders - JUICE RUSSO MD Dexamethasone Injection (Decadron Inje (11/15/22 00:30) Ketorolac Injection (Toradol Injection) (11/15/22 00:30) Ua Culture If Indicated (11/15/22 00:37) Urine Culture (11/15/22 00:15) Ceftriaxone (Rocephin) (11/15/22 01:00) Lidocaine 1% Inj 20 Ml (Xylocaine 1% Inj (11/15/22 01:00) Medications Given in ED Current Medications Medications Dose Ordered Sig/Lesley Route Start Time Stop Time Status Last Admin Dose Admin Ceftriaxone Sodium 1,000 mg ONCE ONCE IM 11/15/22 01:00 11/15/22 01:01 DC 11/15/22 01:07 1,000 MG Dexamethasone Sodium Phosphate 10 mg ONCE ONCE IM 11/15/22 00:30 11/15/22 00:31 DC 11/15/22 00:34 10 MG Ketorolac Tromethamine 30 mg ONCE ONCE IM 11/15/22 00:30 11/15/22 00:31 DC 11/15/22 00:35 30 MG Lidocaine HCl 2.1 ml ONCE ONCE INJ 11/15/22 01:00 11/15/22 01:01 DC 11/15/22 01:07 2.1 ML Vital Signs/I&O 11/15/22 00:08 Temp 37.5 Pulse 103 Resp 18 B/P (MAP) 117/71 (86) Pulse Ox 97 O2 Delivery Room Air Progress Progress Note : Progress Note 1. PARASPINAL MUSCLE SPASM: - Toradol im STAT - Dexa 10mg im STAT, with significant improvement of pain -Advised ibuprofen and Tylenol as needed for pain, [id number] Lidoderm patches, and follow-up with PCP in the next 3 to 7 weeks -No red flags for cord compression. 2. ACUTE CYSTITIS WITHOUT HEMATURIA: - UA is positive for nitrates, leukocyte esterase, WBC, bacteria - Ceftriaxone 1gm im STAT - Prescription for Cefpodoxime 100mg bid for 7 days -Advised adequate water intake -Follow-up with PCP in the next 3 to 7 days -The patient was seen in the ED, and treated appropriately to presentation at a specific point in time. Patient is informed that there is a possibility that disease and illness can evolve and change in acuity rapidly or slowly after patient is discharged from the ER. Precautionary advice given to the patient for immediate return to ER if symptoms worsen or do not resolve, and to seek emergency care sooner rather than later. Pt also advised on the importance of PCP follow up and compliance with management and follow up plan with PCP and/or specialist, as this is part of the management plan. Pt verbally expressed understanding. Departure Impression Primary Impression: Lumbar paraspinal muscle spasm Additional Impression: Acute cystitis without hematuria Disposition: HOME, SELF-CARE Condition: Improved Departure-Patient Inst. Referrals: ANI VARMA DO (PCP/Family) Primary Care Physician Patient Instructions: Acute Cystitis (DC), Muscle Spasm ED, Muscle Spasms (DC) Add. Discharge Instructions: - Prescription for Cefpodoxime 100mg bid for 7 days -Advised adequate water intake -Follow-up with PCP in the next 3 to 7 days - Heat application -Advised ibuprofen and Tylenol as needed for pain, [id number] Lidoderm patches, and follow-up with PCP in the next 3 to 7 weeks Scripts Cefpodoxime Proxetil (Cefpodoxime Proxetil) 100 Mg Tablet 100 MG PO Q12H for 7 Days, #14 TAB Prov: JUICE RUSSO MD 11/15/22 JUICE RUSSO MD Nov 15, 2022 00:11
[2022-11-15] MEDS ORDERED: KETOROLAC 30 MG/ML VIAL IM ONE (00:30)
[2022-11-15 00:42] LABS: BILIRUBIN,URINE NEGATIVE (NEGATIVE); CLARITY,URINE CLOUDY; COLOR,URINE YELLOW; GLUCOSE, URINE (UA) NEGATIVE (NEGATIVE); KETONES,URINE NEGATIVE (NEGATIVE); LEUKOCYTE ESTERASE ,URINE 1+ (NEGATIVE); NITRITE,URINE POSITIVE (NEGATIVE); PROTEIN,URINE NEGATIVE (NEGATIVE)
[2022-11-15 00:44] LABS: BACTERIA,URINE LARGE /HPF; WBC,URINE 50-100 /HPF
[2022-11-15] MEDS ORDERED: cefTRIAXone 1,000 MG VIAL IM ONE (01:00)
[2022-11-15] MEDS ORDERED: LIDOCAINE 1% INJ 20 ML VIAL INJ ONE (01:00)
[2022-11-15] MEDS ORDERED: CEFP100T2 PO (02:04)
[2022-11-15 02:20] VITALS: BP 115/68
== END 2022-11-15 02:20 | disposition home or self-care (01) ==
LOC: EDUNIT# 00:05 → ER FS 00:09
DX: M62.830 Muscle spasm of back (principal); N30.00 Acute cystitis without hematuria
CPT/HCPCS: 81000; 87077; 87088; 99284

== ENCOUNTER 2022-12-18 23:22 | Emergency (ER) | payer MEDICARE, OTHER ==
[~2022-12-18] VITALS: Ht 175 cm; Wt 56.7 kg
[~2022-12-18 23:22] MED LIST changes: +CEFP100T2 PO
--- NOTE | 2022-12-18 23:47 | ED Fall/Injury ---
General Chief Complaint: Trauma-Non Activation Stated Complaint: FALL/LEFT THIGH PAIN Source: patient, EMS Exam Limitations: no limitations History of Present Illness Date Seen by Provider: Dec 18, 2022 Time Seen by Provider: 23:35 Initial Comments 67-year-old female with fall and broken hip over 5 months ago status post surgery coming in after she had mechanical fall tonight, landing against the wall with the back of her head and neck and having left hip pain. She was able to get up on her own and called EMS. Was ambulatory with a walker. Does not take any blood thinners. Did not pass out, remembers all events, no nausea or vomiting. No new weakness or numbness. Otherwise denying any other acute complaints. Had Tylenol roughly 3 hours prior to arrival. Allergies and Home Medications Allergies Coded Allergies: prochlorperazine (Verified Allergy, Unknown, 11/29/19) Patient Home Medication List Home Medication List Reviewed: Yes Alendronate Sodium (Fosamax) 70 Mg Tablet, 70 MG PO WED, (Reported) Entered as Reported by: KEVIN ALLEN on 05/15/221510 Cefdinir (Cefdinir) 300 Mg Capsule, 300 MG PO BID Prescribed by: JADE SMITH on 09/04/221946 Cefpodoxime Proxetil (Cefpodoxime Proxetil) 100 Mg Tablet, 100 MG PO Q12H Prescribed by: JUICE RUSSO MD on 11/15/22 020 Citalopram Hydrobromide (Citalopram HBr) 40 Mg Tablet, 40 MG PO DAILY, (Reported) Entered as Reported by: KEVIN ALLEN on 05/15/22 151 Folic Acid (Folic Acid) 1 Mg Tablet, 1 MG PO DAILY, (Reported) Entered as Reported by: KEVIN ALLEN on 12/15/19 105 Lamotrigine (Lamotrigine) 150 Mg Tablet, 300 MG PO DAILY, (Reported) Entered as Reported by: KEVIN ALLEN on 05/15/22 151 Methotrexate Sodium (Methotrexate) 2.5 Mg Tablet, 15 MG PO MON, (Reported) Entered as Reported by: KEVIN ALLEN on 05/15/22 151 Prednisone (Prednisone) 5 Mg Tablet, 5 MG PO DAILY, (Reported) Entered as Reported by: KEVIN ALLEN on 12/15/19 1055 Vit W-Ca,Fe,FA(<1 mg) ( Formula) 28 Mg Iron-800 Mcg Tablet, 1 EACH PO DAILY, (Reported) Entered as Reported by: KEVIN ALLEN on 05/15/22 1511 Review of Systems Review of Systems Constitutional: No fever Eyes: No Symptoms Reported Ears, Nose, Mouth, Throat: no symptoms reported Respiratory: no symptoms reported Cardiovascular: no symptoms reported Gastrointestinal: no symptoms reported Genitourinary: no symptoms reported Musculoskeletal: see HPI Skin: no symptoms reported Psychiatric/Neurological: No Symptoms Reported Past Jcsdzds-Yzlcoo-Njfrmz Hx Patient Social History Tobacco Use?: No Immunizations Up To Date Tetanus Booster (TDap): Unknown First/Initial COVID19 Vaccinat: Moderna Second COVID19 Vaccination Jin: Moderna Third COVID19 Vaccination Date: Seasonal Allergies Seasonal Allergies: No Past Medical History Surgery/Hospitalization HX: RA, DEPRESSION L HIP REPLACEMENT, HYSTERECTOMY, HANNA Surgeries: Yes (Left femur/hip surgery. ) Gallbladder, Hysterectomy, Orthopedic Respiratory: No Cardiac: No Neurological: No Genitourinary: No Gastrointestinal: Yes Chronic Constipation, Gall Bladder Disease Musculoskeletal: Yes (Right torn rotator cuff) Rheumatoid Arthritis, Fractures Endocrine: No HEENT: No Cancer: Yes Cervical Did You Recieve Any Treatments: Yes What Type of Treatment Did You: Surgical Intervention Psychosocial: Yes Eating Disorder, Anxiety, Bipolar, Depression Integumentary: No Blood Disorders: No Family Medical History Heart Disease Physical Exam Vital Signs Vital Signs - First Documented 12/18/22 23:32 Temp 37.0 Pulse 102 Resp 16 B/P (MAP) 120/56 (77) Capillary Refill : Height, Weight, BMI Height: '" Weight: lbs. oz. kg; 18.00 BMI Method: General Appearance: WD/WN, no apparent distress HEENT: PERRL/EOMI, normal ENT inspection, pharynx normal Neck: non-tender, full range of motion, supple, normal inspection Cardiovascular: regular rate, rhythm, no edema, no murmur Respiratory: chest non-tender, lungs clear, normal breath sounds, no respiratory distress, no accessory muscle use Gastrointestinal: normal bowel sounds, non tender, soft; No distended, No guarding, No rebound Back: normal inspection, no CVA tenderness, no vertebral tenderness Extremities: normal range of motion, non-tender, normal inspection, no pedal edema, no calf tenderness, normal capillary refill Neurologic/Psychiatric: no motor/sensory deficits, alert, normal mood/affect, oriented x 3 Skin: normal color, warm/dry Ruby Coma Score Best Eye Response: (4) Open Spontaneously Best Verbal Response: (5) Oriented Best Motor Response: (6) Obeys Commands Procedures/Interventions Patient Education: Explained Benefits, Explained Risks, Pt. Ack. Understanding Patient History: Problem w/Aneshesia Breath Sounds per Auscultation: Clear Heart Sounds per Auscultation: Regular Airway Exam: Mouth opens >2 fingers, Neck Full Range of Motion, Visulation of Uvula Progress/Results/Core Measures Results/Orders My Orders Orders - JADE SMITH MD Ct Head/Cervical Spine Wo (12/19/22 00:01) Ct Pelvis Wo (12/19/22 00:01) Ibuprofen Tablet (Motrin Tablet) (12/19/22 00:15) Medications Given in ED Current Medications Medications Dose Ordered Sig/Lesley Route Start Time Stop Time Status Last Admin Dose Admin Ibuprofen 400 mg ONCE ONCE PO 12/19/22 00:15 12/19/22 00:16 DC 12/19/22 00:07 400 MG Vital Signs/I&O 12/18/22 23:32 Temp 37.0 Pulse 102 Resp 16 B/P (MAP) 120/56 (77) Progress Progress Note : Progress Note 67-year-old female with above history coming in after mechanical fall. ABCs were intact, GCS 15, vital stable on presentation. I do not see any external signs of trauma. Patient has normal range of motion of her hip with some pain, but neurovascularly intact, logroll normal. No spinal tenderness. CT head, cervical spine, and pelvis ordered and interpreted by me showing no obvious intracranial injury, no obvious fracture or dislocation. The stat read overnight read showed a possibility of a coccygeal fracture on one of the views. This does not clinically correlate as the patient has no pain over her coccyx. Patient offered hydrocodone, does not want it at this time. She had just taken Tylenol, so she was given ibuprofen. Given the significant injury, moving all extremities without difficulty, I believe she stable for discharge with outpatient follow-up. She was sent home with strict return precautions. Diagnostic Imaging Diagonstic Imaging: CT (head, c spine, pelvis) Departure Impression Primary Impression: Fall Qualified Codes: W19.XXXA - Unspecified fall, initial encounter Additional Impression: Left hip pain Disposition: HOME, SELF-CARE Condition: Stable Departure-Patient Inst. Decision time for Depature: 01:15 Referrals: ANI VARMA DO (PCP/Family) Primary Care Physician Patient Instructions: Hip Pain ED Add. Discharge Instructions: Fortunately nothing appears broken. You likely just have bruised soft tissues which will take a while to get better. Continue to take Tylenol, and you can also ice as needed. Follow-up with your regular doctor if you are not improving. JADE SMITH MD Dec 18, 2022 23:47
[2022-12-19] MEDS ORDERED: HYDROcodone/APAP 5 MG/325 MG (LORTAB) TAB PO ONE
[2022-12-19] MEDS ORDERED: IBUPROFEN TABLET 200 MG TAB PO ONE (00:15)
[2022-12-19 00:57] VITALS: BP 124/81
--- NOTE | 2022-12-19 06:26 | Diagnostic Imaging Report ---
PROCEDURE: CT head and CT cervical spine without contrast. TECHNIQUE: Multiple contiguous axial images were obtained through the brain and cervical spine without the use of intravenous contrast. Sagittal and coronal reformations through the cervical spine were then performed. Auto Exposure Controls were utilized during the CT exam to meet ALARA standards for radiation dose reduction. INDICATION: Fall with head and neck injury. CT HEAD: Ventricles and sulci are prominent consistent with cerebral volume loss. There is periventricular low attenuation consistent with chronic microvascular ischemia. No sulcal effacement or midline shift is identified. No acute intra-axial or extra-axial hemorrhage is detected. Cisterns are patent. Visualized paranasal sinuses are clear. IMPRESSION: Cerebral volume loss and changes of chronic microvascular ischemia. No acute intracranial process is detected. CT cervical spine: There is a mild retrolisthesis C2 on C3 with anterolisthesis C3 on C4. There is also a mild anterolisthesis C4 on C5. There is multilevel degenerative disc and facet disease, similar to prior exam. No fractures are identified. Odontoid is intact. Prevertebral tissues are within normal limits. IMPRESSION: Stable multilevel spondylosis and listheses, since exam from 05/19/2022. No acute bony abnormality is detected. Dictated by: Dictated on workstation # [id number]
--- NOTE | 2022-12-19 06:36 | Diagnostic Imaging Report ---
PROCEDURE: CT pelvis without contrast. TECHNIQUE: Multiple contiguous axial images were obtained through the pelvis without the use of intravenous contrast. Sagittal and coronal reformations were performed. Auto Exposure Controls were utilized during the CT exam to meet ALARA standards for radiation dose reduction. INDICATION: Fall with pelvic and hip pain. Postop changes to bilateral hips are noted. There are postop changes of total hip arthroplasty on the left. Intramedullary bill and nail transfix the right hip. The superior and inferior pubic rami are intact. Symphysis is not widened. SI joints are non-widened. The sacrococcygeal alignment is normal. No definite fractures identified. No free fluid in the pelvis is detected. IMPRESSION: No acute bony abnormality is detected. Dictated by: Dictated on workstation # [id number]
== END 2022-12-19 01:00 | disposition home or self-care (01) ==
LOC: EDUNIT# 23:22 → ER FS 23:28
DX: M25.552 Pain in left hip (principal); Z96.642 Presence of left artificial hip joint; W18.30XA Fall on same level, unspecified, initial encounter
CPT/HCPCS: 70450; 72125; 72192

== ENCOUNTER 2023-06-12 04:57 | Emergency (ER) | payer MEDICARE, OTHER ==
[~2023-06-12] VITALS: Ht 175.2 cm; Wt 53.5 kg
--- NOTE | 2023-06-12 05:07 | ED GI ---
General Stated Complaint: VOMITING,WEAKNESS Source of Information: Patient, EMS, Old Records Exam Limitations: No Limitations History of Present Illness Date Seen by Provider: Jun 12, 2023 Time Seen by Provider: 04:59 Initial Comments 67-year-old female coming in via EMS due to roughly 4 hours of nonbloody nonbilious vomiting. She feels generally weak because of this. Denies any diarrhea, fever, chest pain, shortness of breath, abdominal pain, rash, dysuria, urinary frequency, or any other concerns. EMS started an IV and gave her a bolus of IV fluids. She states she is allergic to most antiemetics, and is not nauseous anymore. Allergies and Home Medications Allergies Coded Allergies: prochlorperazine (Verified Allergy, Unknown, 11/29/19) Patient Home Medication List Home Medication List Reviewed: Yes Alendronate Sodium (Fosamax) 70 Mg Tablet, 70 MG PO WED, (Reported) Entered as Reported by: KEVIN ALLEN on 05/15/22 151 Cefdinir (Cefdinir) 300 Mg Capsule, 300 MG PO BID Prescribed by: JADE SMITH on 09/04/221946 Cefpodoxime Proxetil (Cefpodoxime Proxetil) 100 Mg Tablet, 100 MG PO Q12H Prescribed by: JUICE RUSSO MD on 11/15/22 0204 Citalopram Hydrobromide (Citalopram HBr) 40 Mg Tablet, 40 MG PO DAILY, (Reported) Entered as Reported by: KEVIN ALLEN on 05/15/22 151 Folic Acid (Folic Acid) 1 Mg Tablet, 1 MG PO DAILY, (Reported) Entered as Reported by: KEVIN ALLEN on 12/15/19 1055 Lamotrigine (Lamotrigine) 150 Mg Tablet, 300 MG PO DAILY, (Reported) Entered as Reported by: KEVIN ALLEN on 05/15/22 151 Methotrexate Sodium (Methotrexate) 2.5 Mg Tablet, 15 MG PO MON, (Reported) Entered as Reported by: KEVIN ALLEN on 05/15/22 151 Prednisone (Prednisone) 5 Mg Tablet, 5 MG PO DAILY, (Reported) Entered as Reported by: KEVIN ALLEN on 12/15/19 1055 Vit W-Ca,Fe,FA(<1 mg) ( Formula) 28 Mg Iron-800 Mcg Tablet, 1 EACH PO DAILY, (Reported) Entered as Reported by: KEVIN ALLEN on 05/15/22 1511 Review of Systems Review of Systems Constitutional: No fever EENTM: No Symptoms Reported Respiratory: No Symptoms Reported Cardiovascular: No Symptoms Reported Gastrointestinal: See HPI Genitourinary: No Symptoms Reported Musculoskeletal: no symptoms reported Skin: no symptoms reported Psychiatric/Neurological: No Symptoms Reported Endocrine: No Symptoms Reported Hematologic/Lymphatic: No Symptoms Reported Past Efmdinv-Otomwn-Qebuaq Hx Patient Social History Tobacco Use?: No Immunizations Up To Date Tetanus Booster (TDap): Unknown First/Initial COVID19 Vaccinat: Moderna Second COVID19 Vaccination Jin: Moderna Third COVID19 Vaccination Date: Seasonal Allergies Seasonal Allergies: No Past Medical History Surgery/Hospitalization HX: RA, DEPRESSION L HIP REPLACEMENT, HYSTERECTOMY, HANNA Surgeries: Yes (Left femur/hip surgery. ) Gallbladder, Hysterectomy, Orthopedic Respiratory: No Cardiac: No Neurological: No Genitourinary: No Gastrointestinal: Yes Chronic Constipation, Gall Bladder Disease Musculoskeletal: Yes (Right torn rotator cuff) Rheumatoid Arthritis, Fractures Endocrine: No HEENT: No Cancer: Yes Cervical Did You Recieve Any Treatments: Yes What Type of Treatment Did You: Surgical Intervention Psychosocial: Yes Eating Disorder, Anxiety, Bipolar, Depression Integumentary: No Blood Disorders: No Family Medical History Heart Disease Physical Exam Vital Signs Vital Signs - First Documented 06/12/23 04:57 Temp 36.4 Pulse 93 Resp 18 B/P (MAP) 112/57 (75) Pulse Ox 96 O2 Delivery Room Air Capillary Refill : Height/Weight/BMI Height: '" Weight: lbs. oz. kg; 18.00 BMI Method: General Appearance: WD/WN, no apparent distress HEENT: PERRL/EOMI, normal ENT inspection, pharynx normal Neck: non-tender, full range of motion, supple, normal inspection Respiratory: chest non-tender, lungs clear, normal breath sounds, no respiratory distress, no accessory muscle use Cardiovascular: regular rate, rhythm Gastrointestinal: normal bowel sounds, non tender; No distended, No guarding, No rebound Extremities: normal range of motion, non-tender, normal inspection, no pedal edema, no calf tenderness, normal capillary refill Back: normal inspection, no CVA tenderness Neurologic/Psychiatric: no motor/sensory deficits, alert, normal mood/affect Skin: normal color, warm/dry Procedures/Interventions Patient Education: Explained Benefits, Explained Risks, Pt. Ack. Understanding Patient History: Problem w/Aneshesia Breath Sounds per Auscultation: Clear Heart Sounds per Auscultation: Regular Airway Exam: Mouth opens >2 fingers, Neck Full Range of Motion, Visulation of Uvula Progress/Results/Core Measures Results/Orders Lab Results Laboratory Tests Test 06/12/23 05:00 06/12/23 05:05 Range/Units White Blood Count 6.0 4.3-11.0 10^3/uL Red Blood Count 3.34 L 3.80-5.11 10^6/uL Hemoglobin 10.6 L 11.5-16.0 g/dL Hematocrit 33 L 35-52 % Mean Corpuscular Volume 99 80-99 fL Mean Corpuscular Hemoglobin 32 25-34 pg Mean Corpuscular Hemoglobin Concent 32 32-36 g/dL Red Cell Distribution Width 12.8 10.0-14.5 % Platelet Count 244 130-400 10^3/uL Mean Platelet Volume 8.4 L 9.0-12.2 fL Immature Granulocyte % (Auto) 0 % Neutrophils (%) (Auto) 59 42-75 % Lymphocytes (%) (Auto) 28 12-44 % Monocytes (%) (Auto) 10 0-12 % Eosinophils (%) (Auto) 2 0-10 % Basophils (%) (Auto) 1 0-10 % Neutrophils # (Auto) 3.5 1.8-7.8 10^3/uL Lymphocytes # (Auto) 1.7 1.0-4.0 10^3/uL Monocytes # (Auto) 0.6 0.0-1.0 10^3/uL Eosinophils # (Auto) 0.1 0.0-0.3 10^3/uL Basophils # (Auto) 0.0 0.0-0.1 10^3/uL Immature Granulocyte # (Auto) 0.0 0.0-0.1 10^3/uL Sodium Level 137 135-145 MMOL/L Potassium Level 4.1 3.6-5.0 MMOL/L Chloride Level 102 98-107 MMOL/L Carbon Dioxide Level 23 21-32 MMOL/L Anion Gap 12 5-14 MMOL/L Blood Urea Nitrogen 27 H 7-18 MG/DL Creatinine 1.03 0.60-1.30 MG/DL Estimat Glomerular Filtration Rate 59 BUN/Creatinine Ratio 26 Glucose Level 103 70-105 MG/DL Calcium Level 9.2 8.5-10.1 MG/DL Corrected Calcium 9.3 8.5-10.1 MG/DL Magnesium Level 2.2 1.6-2.4 MG/DL Total Bilirubin 0.3 0.1-1.0 MG/DL Aspartate Amino Transf (AST/SGOT) 16 5-34 U/L Alanine Aminotransferase (ALT/SGPT) 10 0-55 U/L Alkaline Phosphatase 81 40-136 U/L Total Protein 6.8 6.4-8.2 GM/DL Albumin 3.9 3.2-4.5 GM/DL Lipase 25 8-78 U/L Influenza Type A (RT-PCR) Not Detected Not Detecte Influenza Type B (RT-PCR) Not Detected Not Detecte SARS-CoV-2 RNA (RT-PCR) Not Detected Not Detecte My Orders Orders - JADE SMITH MD Cbc With Automated Diff (06/12/23 05:04) Comprehensive Metabolic Panel (06/12/23 05:04) Lipase (06/12/23 05:04) Magnesium (06/12/23 05:04) Influenza A And B By Pcr (06/12/23 05:04) Covid 19 Inhouse Test (06/12/23 05:04) Ed Iv/Invasive Line Start (06/12/23 05:04) Famotidine Injection (Famotidine Injec (06/12/23 05:15) Vital Signs/I&O 06/12/23 04:57 Temp 36.4 Pulse 93 Resp 18 B/P (MAP) 112/57 (75) Pulse Ox 96 O2 Delivery Room Air Progress Progress Note : Progress Note 67-year-old female with above history coming in due to nonbloody nonbilious vomiting. ABCs were intact and vitals were stable on presentation. Physical exam reassuring including a soft and nontender abdomen. An IV was placed and basic labs were obtained and the liter of IV fluids that EMS started was continued here. She was given Pepcid for nausea to see if that would help given she is allergic to most antiemetics. Labs were significant for a normal white blood cell count, normal creatinine, normal electrolytes, normal lipase, negative flu, and negative COVID. Repeat abdominal exam once again reassuring. I do not believe she needs advanced imaging at this time. Likely does have a viral illness. I believe she stable for discharge with outpatient follow-up. She was sent home with strict return precautions. Departure Impression Primary Impression: Vomiting in adult Disposition: 01 HOME, SELF-CARE Condition: Stable Departure-Patient Inst. Decision time for Depature: 06:30 Referrals: ANI VARMA DO (PCP/Family) Primary Care Physician Patient Instructions: Nausea and Vomiting, Adult ED Add. Discharge Instructions: You likely have a viral illness that will take some time to get better. Take frequent but small sips of fluids. Follow-up with your regular doctor if you are not seeing improvement in the next day or so. JADE SMITH MD Jun 12, 2023 05:07
[2023-06-12] MEDS ORDERED: FAMOTIDINE INJ 20MG/2ML VIAL IVP ONE (05:15)
[2023-06-12 05:16] LABS: BASOPHILS % (AUTO) 1 % (0-10); EOSINOPHILS # (AUTO) 0.1 10^3/uL (0.0-0.3); EOSINOPHILS % (AUTO) 2 % (0-10); HEMATOCRIT 33 % (35-52); HEMOGLOBIN 10.6 g/dL (11.5-16.0); LYMPHOCYTES # (AUTO) 1.7 10^3/uL (1.0-4.0); LYMPHOCYTES % (AUTO) 28 % (12-44); MEAN CORPUSCULAR HEMOGLOBIN 32 pg (25-34); MEAN CORPUSCULAR HGB CONC 32 g/dL (32-36); MEAN CORPUSCULAR VOLUME 99 fL (80-99); MEAN PLATELET VOLUME 8.4 fL (9.0-12.2); MONOCYTES # (AUTO) 0.6 10^3/uL (0.0-1.0); MONOCYTES % (AUTO) 10 % (0-12); NEUTROPHILS # (AUTO) 3.5 10^3/uL (1.8-7.8); NEUTROPHILS % (AUTO) 59 % (42-75); PLATELET COUNT 244 10^3/uL (130-400)
[2023-06-12 05:42] LABS: ALBUMIN 3.9 GM/DL (3.2-4.5); BILIRUBIN,TOTAL 0.3 MG/DL (0.1-1.0); CALCIUM 9.2 MG/DL (8.5-10.1); CREATININE SERUM 1.03 MG/DL (0.60-1.30); MAGNESIUM 2.2 MG/DL (1.6-2.4); POTASSIUM 4.1 MMOL/L (3.6-5.0); TOTAL PROTEIN 6.8 GM/DL (6.4-8.2)
[2023-06-12 06:18] VITALS: BP 128/57
== END 2023-06-12 07:04 | disposition home or self-care (01) ==
LOC: ER FS 04:57 → EDUNIT# 04:57 → ER FS 07:04
DX: R11.10 Vomiting, unspecified (principal); Z20.822 Contact with and (suspected) exposure to COVID-19
CPT/HCPCS: 36415; 80053; 83690; 83735; 85025; 87636